=== PATIENT | female | born 1990 | race Caucasian/White ===

== ENCOUNTER 2017-03-23 19:52 | Emergency (ER) | payer OTHER ==
[~2017-03-23 19:52] MED LIST: CONCCAP2 PO
[2017-03-23 20:42] LABS: BACTERIA, URINE OCC /hpf; BLOOD, URINE NEG (NEG); COMMENT (UR) CULT NOT INDICATED; CULTURE IF INDICATED CULT NOT INDICATED; GLUCOSE,URINE NEG (NEG); KETONE, URINE NEG (NEG); MUCUS URINE FEW /lpf (OCC); NITRITE,URINE NEG (NEG); PH, URINE 7.5 (5.0-8.5); SQUAMOUS EPITHELIAL CELL URINE 8 /hpf (0-5); URINE COLOR YELLOW (YELLW/STRAW)
[2017-03-23] MEDS ORDERED: LACTATED RINGER'S 1000 ML INJ 1,000 ML IV SCH (21:15)
--- NOTE | 2017-03-23 21:15 | PD ---
HPI Chief Complaint Pt is a 26 yo Pt receives care at [facility], but last visit was 01/2017 Pt is 32 weeks and 5 days based on 18 week ultrasound. pt states she has had vaginal pressure for several weeks. Pt presents to ED with c/o 'contractions' Pt denies vaginal discharge or bleeding. No urinary symptoms Date Seen: March 23, 2017 Time Seen: 21:00 Travel History International Travel<30 Days: No Contact w/Intl Traveler<30Days: No Known Affected Area: No History of Present Illness HPI Pt reports low abdominal pain today. She has had vaginal pressure for several weeks. No urinary symptoms, no vaginal bleeding or discharge Active movements Para: 2 : 3 History Past Medical History Narrative Medical Colitis Obstetric History Obstetric History x 2 deliveries at 36 weeks Past Surgical History Surgical History: No Previous Surgery Family History Family History: Negative Social History Alcohol Use: No Tobacco Use: Yes Allergies-Medications (Allergen,Severity, Reaction): Coded Allergies: Amoxicillin (Verified Allergy, Severe, SWELLING, HIVES, 12/16/16) Penicillin (Verified Allergy, Intermediate, 12/16/16) Hard Cheese (Verified Allergy, Mild, RASH, 12/16/16) Sweet Potato (Verified Allergy, Mild, 12/16/16) Home Meds Active Scripts Vit W/ Fe Fum-Iron Po (Concept Dha 53.5-38-1 mg)1 Cap Cap1 Tab PO DAILY #30 BOTTLE Ref 11 Prov:Suzette Lara 12/16/16 Review of Systems Except as stated in HPI: all other systems reviewed are Neg Physical Exam Narrative GENERAL: Well-nourished, well-developed patient. SKIN: Warm and dry. HEAD: Normocephalic and atraumatic. EYES: No scleral icterus. No injection or drainage. ENT: No nasal drainage noted. Mucous membranes pink. Airway patent. NECK: Supple, trachea midline. No JVD. CARDIOVASCULAR: Regular rate and rhythm without murmurs, gallops, or rubs. RESPIRATORY: Breath sounds equal bilaterally. No accessory muscle use. BREASTS: Bilateral exam showed no masses , no retractions, no nipple discharge. ABDOMEN/GI: Abdomen soft, non-tender, bowel sounds present, no rebound, no guarding Gravid to [32] weeks size Fundal Height: [-] GENITOURINARY: External Genitalia: intact and normal in appearance BUS glands: [-] Cervix: [-] Dilatation: [-] Effacement: [-] Station: [-] Presentation: [-] Membranes: [intact or ruptured] Uterine Contractions: [-] FHT's: Category: [-] Baseline: [-] Reactive: [-] Variability: [-] Decels: [-] EXTREMITIES: No cyanosis or edema. BACK: Nontender without obvious deformity. No CVA tenderness. NEUROLOGICAL: Awake and alert. Motor and sensory grossly within normal limits. Five out of 5 muscle strength in all muscle groups. Normal speech. Data Data Vital Signs Reviewed: Yes Orders Urinalysis - C+S If Indicated (03/23/17 20:30) Lactated Ringer's 1000 Ml Inj (Lr 1000 M (03/23/17 21:15) Labs Laboratory Tests Test 03/23/17 20:30 Urine Color YELLOW Urine Turbidity HAZY Urine pH 7.5 Urine Specific Belding 1.006 Urine Protein NEG Urine Glucose (UA) NEG Urine Ketones NEG Urine Occult Blood NEG Urine Nitrite NEG Urine Bilirubin NEG Urine Urobilinogen LESS THAN 2.0 Urine Leukocyte Esterase NEG Urine RBC 1 Urine WBC 3 Urine Squamous Epithelial 8 Cells Urine Amorphous Sediment RARE Urine Bacteria OCC Urine Mucus FEW Microscopic Urinalysis Comment CULT NOT INDICATED MDM Medical Record Reviewed: Yes Plan Pt with irritable pattern. Cervix 1 cm on admission, no cervical change on repeat exam, minmal uterine irritablity prior to discharge Advised adequate hydration, FU with OBGYN Diagnosis Diagnosis: Primary Impression: contractions Additional Impression: False labor Disposition: 01 DISCHARGE HOME Condition: Good Patient Instructions: General Instructions Additional Instructions: make appointment with OBGYN 1 within 1 week Departure Forms: Tests/Procedures Waqar Anders MD March 23, 2017 21:15
[2017-03-23 22:08] LABS: AUTOMATED NEUTROPHIL # 5.7 TH/MM3 (1.8-7.7); BASOPHIL # 0.1 TH/MM3 (0-0.2); BASOPHIL % 0.5 % (0.0-2.0); EOSINOPHIL # 0.1 TH/MM3 (0-0.4); EOSINOPHIL % 1.3 % (0.0-4.0); HEMATOCRIT 25.3 % (35.0-46.0); HEMO FLAGS DIFF FINAL; LYMPH % 31.3 % (9.0-44.0); LYMPHOCYTE # 3.2 TH/MM3 (1.0-4.8); MEAN CELL VOLUME 87.2 FL (80.0-100.0); MEAN CORPUSCULAR HEMOGLOBIN 30.6 PG (27.0-34.0); MEAN CORPUSCULAR HGB CONC 35.1 % (32.0-36.0); MONO % 11.9 % (0.0-8.0); PLATELET COUNT 440 TH/MM3 (150-450); RED CELL DISTRIBUTION WIDTH 13.9 % (11.6-17.2); WHITE BLOOD COUNT 10.3 TH/MM3 (4.0-11.0)
[2017-03-23 22:48] LABS: RUBELLA IGG ANTIBODY 19.7 IU/mL (10.0-500.0); RUBELLA STATUS IMMUNE (IMMUNE)
[2017-03-24 12:43] LABS: RAPID PLASMA REAGIN SCREEN NON-REACTIVE (NON-REACTVE)
[2017-04-06] MEDS ORDERED: RANI1TAB5 PO (11:04)
[2017-04-08] MEDS ORDERED: SE-NTAB3 PO (13:34)
[2017-04-08] MEDS ORDERED: FERR325T20 (13:39)
== END 2017-03-23 22:07 | disposition home or self-care (01) ==
LOC: HOBED 19:52
DX: O60.03 Preterm labor without delivery, third trimester (principal); Z72.0 Tobacco use
CPT/HCPCS: 59025; 80074; 81001; 84112; 85025; 86592; 86762; 86850; 86900; 86901

== ENCOUNTER 2017-04-30 03:10 | Emergency (ER) | payer OTHER ==
[~2017-04-30 03:10] MED LIST changes: +FERR325T20; +RANI1TAB5 PO; +SE-NTAB3 PO
--- NOTE | 2017-04-30 04:00 | PD ---
HPI Chief Complaint Increased vaginal pressure Date Seen: Apr 30, 2017 Travel History International Travel<30 Days: No Contact w/Intl Traveler<30Days: No Known Affected Area: No History of Present Illness HPI Patient is 27-year-old white female 38 weeks presents complaining of increased vaginal pressure in the possibly losing the mucous plug. Denies ruptured membranes or bleeding. heart rate tracing is reactive and she is having occasional contraction. [facility] Para: 2 : 3 History Obstetric History Obstetric History 2 vaginal deliveries Social History Alcohol Use: No Tobacco Use: No Substance Abuse: No Allergies-Medications (Allergen,Severity, Reaction): Coded Allergies: Amoxicillin (Verified Allergy, Severe, SWELLING, HIVES, 04/28/17) Penicillin (Verified Allergy, Intermediate, 04/28/17) Hard Cheese (Verified Allergy, Mild, RASH, 04/28/17) Sweet Potato (Verified Allergy, Mild, 04/28/17) Home Meds Active Scripts Ferrous Sulfate (Ferosul)325 Mg [id number] Cap .ROUTE DAILY #60 CAP Prov:Bertha Garcia 04/08/17 Vit W/ Docusate-Fe Fu (Se-Esthela 19 29-1 mg)1 Tab Tab1 Tab PO DAILY # 60 TAB Ref 2 Prov:Bertha Garcia 04/08/17 Ranitidine (Ranitidine 75)75 Mg Tab75 Mg PO DAILY PRN (heatburn) #15 TAB Ref 1 Take 30 to 60 minutes before eating food or drinking beverages that cause heartburn. Prov:Bertha Garcia 04/06/17 Vit W/ Fe Fum-Iron Po (Concept Dha 53.5-38-1 mg)1 Cap Cap1 Tab PO DAILY #30 BOTTLE Ref 11 Prov:Suzette Lara 12/16/16 Review of Systems General / Constitutional: No: Fever, Weight Gain, Chills, Other Eyes: No: Diploplia, Blurred Vision, Visual changes, Pain, Photophobia HENT: No: Headaches, Vertigo, Lightheadedness Cardiovascular: No: Irregular Rhythm, Chest Pain or Discomfort, Palpitations, Tachycardia, Syncope, Varicosities, Edema, Cyanosis Respiratory: No: Cough, Short of Breath, Other Gastrointestinal: No: Nausea, Vomiting, Diarrhea Genitourinary: No: Decreased Urinary Output, Oliguria Musculoskeletal: No: Limited ROM, Weakness, Cramping, Edema, Pain Skin: No Rash, No Itching, No Dryness, No Lumps, No Change in Pigmentation, No Change in Nails, No Alopecia, No Lesions Neurologic: No: Weakness, Dizziness, Syncope, Focal Abnormalities, Coordination Problem, Headache, Slurred Speech, Seizures Psychiatric: No: Depression, Suicidal Ideations, Homicidal Ideation Endocrine: No: Heat Intolerance, Cold Intolerance, Polydipsia, Polyuria, Other Physical Exam Narrative GENERAL: Well-nourished, well-developed patient. SKIN: Warm and dry. HEAD: Normocephalic and atraumatic. EYES: No scleral icterus. No injection or drainage. ENT: No nasal drainage noted. Mucous membranes pink. Airway patent. NECK: Supple, trachea midline. No JVD. CARDIOVASCULAR: Regular rate and rhythm without murmurs, gallops, or rubs. RESPIRATORY: Breath sounds equal bilaterally. No accessory muscle use. BREASTS: Bilateral exam showed no masses , no retractions, no nipple discharge. ABDOMEN/GI: Abdomen soft, non-tender, bowel sounds present, no rebound, no guarding Gravid to [38-] weeks size Fundal Height: [38-] GENITOURINARY: External Genitalia: intact and normal in appearance BUS glands: [-] Cervix: [-] Dilatation: [2-] Effacement: [30-] Station: [-3] Presentation: [vtx-] Membranes: [intact ] Uterine Contractions: [irreg-] FHT's: Category: [1-] Baseline: [133-] Reactive: [-yes] Variability: [mod-] Decels: [0-] EXTREMITIES: No cyanosis or edema. BACK: Nontender without obvious deformity. No CVA tenderness. NEUROLOGICAL: Awake and alert. Motor and sensory grossly within normal limits. Five out of 5 muscle strength in all muscle groups. Normal speech. MDM Interpretation(s) This patient is a 27-year-old white female 38 weeks who presents complaining of increased vaginal pressure possibly loosen the mucous plug. Denies ruptured membranes or bleeding. heart rate tracing is reactive and she is keaton irregularly. Cervix is too thick and very posterior head supply quite a bit of pressure in the pelvis and you have to reach behind to get the cervical os but she is not dilated much Plan DC home to increase bedrest, increase oral fluids, Tylenol, heating pad or hot bath for comfort, and see her OB provider as scheduled or return here sooner for increase in pain bleeding or leakage Diagnosis Diagnosis: Primary Impression: False labor after 37 weeks of gestation without delivery Disposition: 01 DISCHARGE HOME Condition: Stable Saud Art II, MD Apr 30, 2017 03:59
== END 2017-04-30 04:06 | disposition home or self-care (01) ==
LOC: HOBED 03:10
DX: O47.1 False labor at or after 37 completed weeks of gestation (principal); Z3A.38 38 weeks gestation of pregnancy; Z79.899 Other long term (current) drug therapy; Z88.0 Allergy status to penicillin
CPT/HCPCS: 84112; 99282

== ENCOUNTER 2017-05-04 14:53 | Emergency (ER) | payer OTHER ==
[~2017-05-04] VITALS: Ht 154.9 cm; Wt 67.6 kg
--- NOTE | 2017-05-04 15:30 | PD ---
HPI Chief Complaint contractions daily Date Seen: May 04, 2017 Time Seen: 15:26 Travel History International Travel<30 Days: No Contact w/Intl Traveler<30Days: No Known Affected Area: No History of Present Illness HPI 27-year-old who is at 38 weeks and 5 days complains of daily contractions for the past week. Today they started earlier this morning and is becoming intermittent causing some vaginal pressure. Patient seen in the office with the last exam showing that she had a 2 cm cervical dilation. History Past Medical History Medical History: Denies Significant Hx Obstetric History Obstetric History Spontaneous vaginal delivery 2 Past Surgical History Surgical History: No Previous Surgery Family History Family History: Negative Social History Alcohol Use: No Tobacco Use: No Substance Abuse: Yes (marijuana) Allergies-Medications (Allergen,Severity, Reaction): Coded Allergies: Amoxicillin (Verified Allergy, Severe, SWELLING, HIVES, 04/28/17) Penicillin (Verified Allergy, Intermediate, 04/28/17) Hard Cheese (Verified Allergy, Mild, RASH, 04/28/17) Sweet Potato (Verified Allergy, Mild, 04/28/17) Home Meds Active Scripts Ferrous Sulfate (Ferosul)325 Mg [id number] Cap .ROUTE DAILY #60 CAP Prov:Bretha Garcia 04/08/17 Vit W/ Docusate-Fe Fu (Se- 19 29-1 mg)1 Tab Tab1 Tab PO DAILY # 60 TAB Ref 2 Prov:Bertha Garcia 04/08/17 Ranitidine (Ranitidine 75)75 Mg Tab75 Mg PO DAILY PRN (heatburn) #15 TAB Ref 1 Take 30 to 60 minutes before eating food or drinking beverages that cause heartburn. Prov:Bertha Garcia 04/06/17 Vit W/ Fe Fum-Iron Po (Concept Dha 53.5-38-1 mg)1 Cap Cap1 Tab PO DAILY #30 BOTTLE Ref 11 Prov:Suzette Lara 12/16/16 Review of Systems Except as stated in HPI: all other systems reviewed are Neg Physical Exam Narrative GENERAL: Well-nourished, well-developed patient. SKIN: Warm and dry. HEAD: Normocephalic and atraumatic. EYES: No scleral icterus. No injection or drainage. ENT: No nasal drainage noted. Mucous membranes pink. Airway patent. NECK: Supple, trachea midline. No JVD. CARDIOVASCULAR: Regular rate and rhythm without murmurs, gallops, or rubs. RESPIRATORY: Breath sounds equal bilaterally. No accessory muscle use. BREASTS: Bilateral exam showed no masses , no retractions, no nipple discharge. ABDOMEN/GI: Abdomen soft, non-tender, bowel sounds present, no rebound, no guarding Gravid to [-38] weeks size Fundal Height: [-] GENITOURINARY: External Genitalia: intact and normal in appearance BUS glands: [-Normal] Cervix: [Posterior-] Dilatation: [-2] Effacement: [50-] Station: [-4-] Presentation: [-Vertex] Membranes: [intact] Uterine Contractions: [-Occasional irregular] FHT's: Category: [-1] Baseline: [145-] Reactive: [-Moderate] Variability: [-Moderate] Decels: [-Absent] EXTREMITIES: No cyanosis or edema. BACK: Nontender without obvious deformity. No CVA tenderness. NEUROLOGICAL: Awake and alert. Motor and sensory grossly within normal limits. Five out of 5 muscle strength in all muscle groups. Normal speech. Data Data Vital Signs Reviewed: Yes [facility] Medical Record Reviewed: Yes Plan 27-year-old who is at 38 weeks 5 days Occasional contractions with false labor and no cervical change since last examination Follow tomorrow for her regular appointment Diagnosis Diagnosis: Primary Impression: 38 weeks gestation of Additional Impression: False labor after 37 completed weeks of gestation Disposition: 01 DISCHARGE HOME Nyla Curran MD May 04, 2017 15:30
== END 2017-05-04 15:52 | disposition home or self-care (01) ==
LOC: HOBED 14:53
DX: O47.1 False labor at or after 37 completed weeks of gestation (principal); O99.323 Drug use complicating pregnancy, third trimester; Z3A.38 38 weeks gestation of pregnancy
CPT/HCPCS: 99281

== ENCOUNTER 2017-05-07 01:21 | Inpatient (IN) | payer OTHER ==
[2017-05-07] VITALS (68 sets, daily range): BP systolic 97–129; BP diastolic 44–83; PULSE 66–92; RESP 16–18; TEMP 97.9–98.2; O2SAT 99–100
[2017-05-07] MEDS ORDERED: LACTATED RINGER'S 1000 ML INJ 1,000 ML IV PRN (03:21)
--- NOTE | 2017-05-07 03:26 | HHI.HP ---
HPI Chief Complaint Contractions Date Seen: May 07, 2017 Travel History International Travel<30 Days: No Contact w/Intl Traveler<30Days: No Known Affected Area: No History of Present Illness HPI Patient is a 27-year-old white female at 39 weeks presents with regular contractions. [facility] Denies bleeding or ruptured membranes. heart rate tracing is reactive and she is keaton every 2-3 minutes. Para: 2 : 3 History Obstetric History Obstetric History 2 vaginal deliveries at term Social History Alcohol Use: No Tobacco Use: No Substance Abuse: No Allergies-Medications (Allergen,Severity, Reaction): Coded Allergies: Amoxicillin (Verified Allergy, Severe, SWELLING, HIVES, 05/05/17) Penicillin (Verified Allergy, Intermediate, 05/05/17) Sweet Potato (Verified Allergy, Mild, 05/05/17) Home Meds Active Scripts Ferrous Sulfate (Ferosul)325 Mg [id number] Cap .ROUTE DAILY #60 CAP Prov:Bertha Garcia 04/08/17 Vit W/ Docusate-Fe Fu (Se- 19 29-1 mg)1 Tab Tab1 Tab PO DAILY # 60 TAB Ref 2 Prov:Bertha Garcia 04/08/17 Ranitidine (Ranitidine 75)75 Mg Tab75 Mg PO DAILY PRN (heatburn) #15 TAB Ref 1 Take 30 to 60 minutes before eating food or drinking beverages that cause heartburn. Prov:Bertha Garcia 04/06/17 Vit W/ Fe Fum-Iron Po (Concept Dha 53.5-38-1 mg)1 Cap Cap1 Tab PO DAILY #30 BOTTLE Ref 11 Prov:Suzette Lara 12/16/16 Review of Systems General / Constitutional: No: Fever, Weight Gain, Chills, Other Eyes: No: Diploplia, Blurred Vision, Visual changes, Pain, Photophobia HENT: No: Headaches, Vertigo, Lightheadedness Cardiovascular: No: Irregular Rhythm, Chest Pain or Discomfort, Palpitations, Tachycardia, Syncope, Varicosities, Edema, Cyanosis Respiratory: No: Cough, Short of Breath, Other Gastrointestinal: Abdominal Pain, No: Nausea, Vomiting, Diarrhea Genitourinary: No: Decreased Urinary Output, Oliguria Musculoskeletal: No: Limited ROM, Weakness, Cramping, Edema, Pain Skin: No Rash, No Itching, No Dryness, No Lumps, No Change in Pigmentation, No Change in Nails, No Alopecia, No Lesions Neurologic: No: Weakness, Dizziness, Syncope, Focal Abnormalities, Coordination Problem, Headache, Slurred Speech, Seizures Psychiatric: No: Depression, Suicidal Ideations, Homicidal Ideation Endocrine: No: Heat Intolerance, Cold Intolerance, Polydipsia, Polyuria, Other Physical Exam Narrative GENERAL: Well-nourished, well-developed patient. SKIN: Warm and dry. HEAD: Normocephalic and atraumatic. EYES: No scleral icterus. No injection or drainage. ENT: No nasal drainage noted. Mucous membranes pink. Airway patent. NECK: Supple, trachea midline. No JVD. CARDIOVASCULAR: Regular rate and rhythm without murmurs, gallops, or rubs. RESPIRATORY: Breath sounds equal bilaterally. No accessory muscle use. BREASTS: Bilateral exam showed no masses , no retractions, no nipple discharge. ABDOMEN/GI: Abdomen soft, non-tender, bowel sounds present, no rebound, no guarding Gravid to [39-] weeks size Fundal Height: [-39] GENITOURINARY: External Genitalia: intact and normal in appearance BUS glands: [-] Cervix: [-] Dilatation: [-5] Effacement: [70-] Station: [-2] Presentation: [-vtx] Membranes: [intact ] Uterine Contractions: [q 2-3 min-] FHT's: Category: [1-] Baseline: [133-] Reactive: [-yes] Variability: [mod-] Decels: [none-] EXTREMITIES: No cyanosis or edema. BACK: Nontender without obvious deformity. No CVA tenderness. NEUROLOGICAL: Awake and alert. Motor and sensory grossly within normal limits. Five out of 5 muscle strength in all muscle groups. Normal speech. Data Data Orders Admit To Inpatient (05/07/17 ) Vital Signs (Adult) .Per protocol (05/07/17 03:21) Heart (05/07/17 03:21) Amnioinfusion (05/07/17 03:21) Urinary Catheter Management .ONCE (05/07/17 03:21) Assessment/Plan Assessment and Plan Patient is 27-year-old white female 39 weeks presents in early labor. Cervix is 5 cm 70% -2, membranes intact is no vaginal bleeding, heart rate tracing is reactive and she is keaton on the monitor to 3 minutes. Patient describes these contractions is quite painful. [facility], she is GBS negative Saud Art II, MD May 07, 2017 03:26
[2017-05-07] MEDS ORDERED: OXYTOCIN 30 UNITS-500ML PREMIX 500 ML IV ONE (03:30)
[2017-05-07] MEDS ORDERED: MINERAL OIL 10 ML VIAL TOPICAL PRN (03:30)
[2017-05-07] MEDS ORDERED: CITRIC ACID-SODIUM CITRATE LIQ 30 ML UDC PO SCH (03:30)
[2017-05-07] MEDS ORDERED: ONDANSETRON HCL 4 MG/2 ML VIAL IV PRN (03:30)
[2017-05-07] MEDS ORDERED: LIDOCAINE HCL 1% 50 ML VIAL INFIL PRN (03:30)
[2017-05-07] MEDS ORDERED: LIDOCAINE HCL 1% 50 ML VIAL I-DERMAL PRN (03:30)
[2017-05-07] MEDS ORDERED: SODIUM CHLORID 0.9% 500 ML INJ 500 ML IV PRN (03:30)
[2017-05-07] MEDS ORDERED: SODIUM CHLOR 0.9% 1000 ML INJ 1,000 ML IV PRN (03:41)
[2017-05-07 04:24] LABS: BACTERIA, URINE RARE /hpf; BLOOD, URINE NEG (NEG); GLUCOSE,URINE NEG (NEG); KETONE, URINE NEG (NEG); MUCUS URINE FEW /lpf (OCC); NITRITE,URINE NEG (NEG); SQUAMOUS EPITHELIAL CELL URINE 1 /hpf (0-5); URINE COLOR YELLOW (YELLW/STRAW)
[2017-05-07 04:25] LABS: COMMENT (UR) CULT NOT INDICATED; CULTURE IF INDICATED CULT NOT INDICATED
[2017-05-07] MEDS ORDERED: fentaNYL 2MCG-BUPIV 0.125% 100 ML EPIDURAL SCH (04:30)
[2017-05-07] MEDS ORDERED: NO SYSTEM NARCOTICS PRN (04:30)
[2017-05-07] MEDS ORDERED: DO NOT ADMINISTER ANTICOAGULANTS PRN (04:30)
[2017-05-07 04:31] LABS: AMPHETAMINE, URINE NEG (NEG); BARBITURATES, URINE NEG (NEG); COCAINE, URINE NEG (NEG)
[2017-05-07 04:33] LABS: AUTOMATED NEUTROPHIL # 6.5 TH/MM3 (1.8-7.7); BASOPHIL # 0.1 TH/MM3 (0-0.2); BASOPHIL % 0.7 % (0.0-2.0); EOSINOPHIL # 0.2 TH/MM3 (0-0.4); EOSINOPHIL % 1.7 % (0.0-4.0); HEMATOCRIT 27.7 % (35.0-46.0); HEMO FLAGS DIFF FINAL; LYMPH % 28.5 % (9.0-44.0); LYMPHOCYTE # 3.2 TH/MM3 (1.0-4.8); MEAN CELL VOLUME 85.8 FL (80.0-100.0); MEAN CORPUSCULAR HEMOGLOBIN 29.2 PG (27.0-34.0); MONO % 10.2 % (0.0-8.0); NEUT % 58.9 % (16.0-70.0); PLATELET COUNT 537 TH/MM3 (150-450); RED BLOOD COUNT 3.23 MIL/MM3 (4.00-5.30); RED CELL DISTRIBUTION WIDTH 15.7 % (11.6-17.2); WHITE BLOOD COUNT 11.1 TH/MM3 (4.0-11.0)
[2017-05-07] MEDS ORDERED: fentaNYL 2MCG-BUPIV 0.125% INJ 100 ML ONE (04:33)
[2017-05-07] MEDS ORDERED: ePHEDrine/NS 25 MG/5 ML SYR ONE (04:43)
[2017-05-07] MEDS: LACTATED RINGER'S 1000 ML INJ 1,000 ML IV SCH ×2 (04:52→08:49)
[2017-05-07] MEDS ORDERED: ePHEDrine/NS 25 MG/5 ML SYR IV PRN (05:45)
--- NOTE | 2017-05-07 09:27 | PD.LABORPN ---
Subjective Subjective 27 YO at 39/1 in labor resting in bed with no concerns Objective Vital Signs Vital Signs Date Time Temp Pulse Resp B/P Pulse Ox O2 Delivery O2 Flow Rate FiO2 05/07/17 08:50 18 05/07/17 08:40 75 05/07/17 08:35 77 05/07/17 08:31 73 117/73 05/07/17 08:30 74 05/07/17 08:10 78 05/07/17 08:05 92 05/07/17 08:00 78 126/68 05/07/17 08:00 76 05/07/17 07:37 98.2 18 05/07/17 07:35 76 05/07/17 07:30 78 05/07/17 07:30 76 05/07/17 07:30 77 115/75 05/07/17 07:25 77 05/07/17 07:25 76 05/07/17 07:20 75 05/07/17 07:20 77 05/07/17 07:15 74 126/72 05/07/17 07:15 74 05/07/17 07:15 74 05/07/17 07:00 72 05/07/17 07:00 69 05/07/17 07:00 72 124/72 05/07/17 06:50 72 05/07/17 06:50 71 05/07/17 06:46 128/82 05/07/17 06:46 82 05/07/17 06:45 78 05/07/17 06:45 82 05/07/17 06:41 81 119/76 05/07/17 06:40 80 05/07/17 06:40 83 05/07/17 06:35 78 05/07/17 06:35 79 100 05/07/17 06:31 72 97/44 05/07/17 06:30 72 100 05/07/17 06:30 18 05/07/17 06:30 71 05/07/17 06:25 72 05/07/17 06:25 71 99 05/07/17 06:20 77 100 05/07/17 06:20 73 05/07/17 06:16 70 103/56 05/07/17 06:15 70 100 05/07/17 06:15 72 05/07/17 06:10 78 05/07/17 06:10 76 05/07/17 06:05 78 05/07/17 06:05 79 05/07/17 06:00 80 122/75 05/07/17 06:00 78 05/07/17 06:00 80 05/07/17 05:55 79 05/07/17 05:55 76 16 05/07/17 05:50 76 05/07/17 05:50 75 05/07/17 05:45 16 05/07/17 05:45 72 05/07/17 05:45 83 116/65 05/07/17 05:45 76 05/07/17 05:40 76 05/07/17 05:40 75 118/73 05/07/17 05:40 76 05/07/17 05:36 83 116/67 05/07/17 05:35 78 05/07/17 05:35 78 05/07/17 05:31 74 103/65 05/07/17 05:30 78 05/07/17 05:30 78 05/07/17 05:26 78 125/59 05/07/17 05:25 79 05/07/17 05:25 79 05/07/17 05:24 18 05/07/17 05:20 78 05/07/17 05:20 79 122/66 05/07/17 05:20 75 05/07/17 05:15 76 05/07/17 05:15 18 05/07/17 05:15 75 117/64 05/07/17 05:15 77 05/07/17 05:12 76 120/59 05/07/17 05:10 81 05/07/17 05:10 82 05/07/17 05:05 76 05/07/17 05:05 72 05/07/17 05:04 73 121/74 05/07/17 05:00 97.9 05/07/17 05:00 18 05/07/17 05:00 77 05/07/17 05:00 78 05/07/17 04:55 66 05/07/17 04:55 67 05/07/17 04:50 71 05/07/17 04:49 70 123/71 05/07/17 04:33 18 05/07/17 03:38 16 05/07/17 03:37 71 112/58 Objective Pelvic Exam: Cervix: anterior Dilatation: 6-7 Effacement: 100 Station: 0 Presentation: vertex Membranes: AROM -- 0920 Uterine Contractions: 2-3 minutes and regular FHT's: Category: 1 Baseline: 120 Reactive: yes Variability: moderate Decels: no Assessment/Plan Assessment and Plan 27-year-old white female 39/1. Cervix is 6-7 cm 100%, 0 station; AROM performed at 0920 1. IUP - GBS negative - Category 1 tracing - Routine labor care - Epidural in place and pain well controlled Timothy Sandra MD R1 May 07, 2017 09:27
[2017-05-07] MEDS ORDERED: ONDANSETRON ODT 4 MG TAB PO PRN (10:30)
[2017-05-07] MEDS ORDERED: BENZOCAINE 20% TOPICAL SPRAY 60 ML CAN TOPICAL PRN (10:30)
[2017-05-07] MEDS ORDERED: SODIUM CHLORIDE 0.9% FLUSH 10 ML FLUSH IV FLUSH PRN (10:30)
[2017-05-07] MEDS ORDERED: ALUMINUM/MAGNESIUM/SIMETH 30 ML CUP PO PRN (10:30)
[2017-05-07] MEDS ORDERED: DOCUSATE SODIUM 50 MG/SENNA 8.6 MG TAB PO PRN (10:30)
[2017-05-07] MEDS ORDERED: ZOLPIDEM TARTRATE 5 MG TAB PO PRN (10:30)
[2017-05-07] MEDS ORDERED: WITCH HAZEL 50%/GLYCERIN 12.5% 40 PAD JAR TOPICAL PRN (10:30)
--- NOTE | 2017-05-07 10:39 | PD.OB.DELI ---
Delivery Date: May 07, 2017 Anesthesia: Epidural Episiotomy: None Vaginal Delivery: Normal Presentation: Occiput anterior, Vertex Nuchal Cord: None Delayed cord clamping (45 sec): Yes Infant: Male One Minute : 8 Five Minute : 8 Weight: 3235g Placenta: Spontaneous delivery Laceration: No lacerations Additional Information Delivered by Dr Norris, assited by Dr Sandra and supervised by Timothy Longo MD R1 May 07, 2017 10:39
[2017-05-07] MEDS: IBUPROFEN 600 MG TAB PO PRN ×2 (13:21→21:21)
[2017-05-07] MEDS ORDERED: DIPHTH/TETANUS/ACEL PERTUSSIS (BOOSTER) 0.5 ML VIAL/PFS IM ONE (16:00)
[2017-05-07] MEDS ORDERED: MEASLES, MUMPS, RUBELLA VACCINE 0.5 ML VIAL SQ ONE (16:00)
[2017-05-07] MEDS: ACETAMINOPHEN 325 MG TAB PO PRN (21:22)
[2017-05-08 08:00] VITALS: BP 106/69; PULSE 70; RESP 17; TEMP 98.1
[2017-05-08] MEDS: ACETAMINOPHEN 325 MG TAB PO PRN ×2 (08:46→17:44)
[2017-05-08] MEDS: IBUPROFEN 600 MG TAB PO PRN ×2 (08:46→17:45)
[2017-05-08] MEDS: SODIUM CHLORIDE 0.9% FLUSH 10 ML FLUSH IV FLUSH SCH (09:00)
--- NOTE | 2017-05-08 10:14 | HHI.OB ---
Subjective Post Day: 1 Remarks Pt seen and examined this morning. day # 1 AFVSS overnight. Decreased lochia. Denies dysuria. No breast tenderness. She is feeding the baby via bottle. Appetite good. No nausea or vomiting. Patient endorses no bowel gas or movement, but does have positive bowel sounds Ambulating well. Denies calf pain or shortness of breath. Otherwise, she is doing well this morning and has no other concerns. Objective Vitals/I&O Vital Signs Date Time Temp Pulse Resp B/P Pulse Ox O2 Delivery O2 Flow Rate FiO2 05/08/17 08:00 98.1 70 17 05/08/17 08:00 106/69 05/07/17 19:10 97.9 18 05/07/17 19:10 74 113/71 05/07/17 13:45 98.2 66 16 110/66 05/07/17 13:00 69 111/56 05/07/17 12:30 73 118/68 05/07/17 12:00 16 05/07/17 12:00 75 115/74 05/07/17 11:30 71 124/65 05/07/17 11:01 69 118/67 05/07/17 10:30 70 117/66 Objective Remarks GENERAL: Well-nourished, well-developed patient. CARDIOVASCULAR: Regular rate and rhythm without murmurs, gallops, or rubs. RESPIRATORY: Breath sounds equal bilaterally. No accessory muscle use. ABDOMEN/GI: Abdomen soft, non-tender. Fundus: Firm, non-tender at umbilicus. GENITOURINARY: Light to moderate bleeding. EXTREMITIES: No cyanosis or edema, non-tender, without signs of DVT. Medications and IVs Current Medications Medications (Trade) Dose Ordered Sig/Jon Route Start Time Stop Time Status Last Admin (fentaNYL 2MCG-BUPIV 0.125% INJ) 100 ml @ 0 mls/hr TITRATE EPIDURAL 05/07/17 04:30 05/07/17 08:50 (NS Flush) 2 ml BID IV FLUSH 05/07/17 21:00 (NS Flush) 2 ml UNSCH PRN IV FLUSH 05/07/17 10:30 (Tylenol) 650 mg Q4H PRN PO 05/07/17 10:30 05/08/17 08:46 (Motrin) 600 mg Q6H PRN PO 05/07/17 10:30 05/08/17 08:46 (Americaine 20% Top Spr) 1 spray Q4H PRN TOPICAL 05/07/17 10:30 (Tucks Pads) 1 applic QID PRN TOPICAL 05/07/17 10:30 (Jud-Colace) 2 tab Q12H PRN PO 05/07/17 10:30 05/07/17 21:21 (Ambien) 5 mg HS PRN PO 05/07/17 10:30 (Mag-Al Plus Susp Liq) 15 ml Q8H PRN PO 05/07/17 10:30 (Zofran Odt) 4 mg Q6H PRN PO 05/07/17 10:30 Assessment/Plan Assessment and Plan 27y/o female who is PPD # 1 s/p . -Continue routine care. -Motrin PRN pain. -Encouraged OOB. Advised pelvic rest for 6 wks. -Re: ctrl, she would like to discuss her options at her follow-up OB appointment. -Anticipate discharge tomorrow, 05/09. jeffy Greco MD Discharge Planning -Anticipate discharge tomorrow, 05/09. Raheem Hewitt MD R1 May 08, 2017 10:14
[2017-05-08] MEDS ORDERED: IBUP-232 PO (10:15)
[2017-05-08] MEDS ORDERED: SENN1TAB PO (10:15)
--- NOTE | 2017-05-08 10:16 | HHI.DCPOC ---
Discharge Care Plan Diagnosis: (1) Vaginal delivery Report Symptoms to Your Doctor -Temperature above 100.5 degrees -Redness, of incision or excessive or foul smelling drainage -Unusual pain or calf pain -Increased vaginal bleeding -Painful or difficulty urinating -Feelings of extreme sadness or anxiety after 2 weeks Goals to Promote Your Health * To prevent worsening of your condition and complications * To maintain your health at the optimal level Directions to Meet Your Goals Take your medications as prescribed Follow your dietary instruction Follow activity as directed Ensure plenty of rest for recovery Drink fluids for hydration Keep your appointments as scheduled Take your immunizations and boosters as scheduled If your symptoms worsen call your PCP, if no PCP go to Urgent Care Center or Emergency Room Smoking is Dangerous to Your Health. Avoid second hand smoke Call the 24-hour crisis hotline for domestic abuse at Raheem Hewitt MD R1 May 08, 2017 10:16
[2017-05-09] MEDS: ACETAMINOPHEN 325 MG TAB PO PRN ×2 (02:55→08:45)
[2017-05-09] MEDS: IBUPROFEN 600 MG TAB PO PRN ×2 (02:55→08:45)
[2017-05-09 08:20] VITALS: BP 119/79; PULSE 61; RESP 16; TEMP 97.9
[2017-05-09] MEDS: SODIUM CHLORIDE 0.9% FLUSH 10 ML FLUSH IV FLUSH SCH (09:00)
--- NOTE | 2017-05-09 10:31 | HHI.OB ---
Subjective Post Day: 2 Remarks Pt seen and examined this morning. day # 1 AFVSS overnight. Decreased lochia. Denies dysuria. No breast tenderness. She is feeding the baby via bottle. Appetite good. No nausea or vomiting. Patient endorses bowel movement and continues to pass gas. Ambulating well. Denies calf pain or shortness of breath. She does mention that she is upset as she is giving her baby up for adoption, but otherwise is doing well this morning and has no other concerns. Objective Vitals/I&O Vital Signs Date Time Temp Pulse Resp B/P Pulse Ox O2 Delivery O2 Flow Rate FiO2 05/09/17 08:20 97.9 61 16 05/09/17 08:20 119/79 Objective Remarks GENERAL: Well-nourished, well-developed patient. CARDIOVASCULAR: Regular rate and rhythm without murmurs, gallops, or rubs. RESPIRATORY: Breath sounds equal bilaterally. No accessory muscle use. ABDOMEN/GI: Abdomen soft, non-tender. Fundus: Firm, non-tender at umbilicus. GENITOURINARY: Light to moderate bleeding. EXTREMITIES: No cyanosis or edema, non-tender, without signs of DVT. Medications and IVs Current Medications Medications (Trade) Dose Ordered Sig/Jon Route Start Time Stop Time Status Last Admin (fentaNYL 2MCG-BUPIV 0.125% INJ) 100 ml @ 0 mls/hr TITRATE EPIDURAL 05/07/17 04:30 05/07/17 08:50 (NS Flush) 2 ml BID IV FLUSH 05/07/17 21:00 (NS Flush) 2 ml UNSCH PRN IV FLUSH 05/07/17 10:30 (Tylenol) 650 mg Q4H PRN PO 05/07/17 10:30 05/09/17 08:45 (Motrin) 600 mg Q6H PRN PO 05/07/17 10:30 05/09/17 08:45 (Americaine 20% Top Spr) 1 spray Q4H PRN TOPICAL 05/07/17 10:30 (Tucks Pads) 1 applic QID PRN TOPICAL 05/07/17 10:30 (Jud-Colace) 2 tab Q12H PRN PO 05/07/17 10:30 05/07/17 21:21 (Ambien) 5 mg HS PRN PO 05/07/17 10:30 (Mag-Al Plus Susp Liq) 15 ml Q8H PRN PO 05/07/17 10:30 (Zofran Odt) 4 mg Q6H PRN PO 05/07/17 10:30 Assessment/Plan Assessment and Plan 27y/o female who is PPD # 2 s/p . -Continue routine care. -Motrin PRN pain. -Encouraged OOB. Advised pelvic rest for 6 wks. -Re: ctrl, she would like to discuss her options at her follow-up OB appointment in 6 weeks -Discharge home today, 05/09. jeffy Anders MD Discharge Planning Anticipatory discharge today, 05/09. Raheem Hewitt MD R1 May 09, 2017 10:31
[2017-05-12 17:11] LABS: BATH SALTS (MDPV) UR NEG (NEG); ECSTASY (MDMA) UR NEG (NEG); GABAPENTIN UR NEG (NEG); HEROIN (6-ACETYLMORPHINE) UR NEG (NEG); HYDROMORPHONE U NEG (NEG); K2 SPICE UR NEG (NEG); OBMETHADONE UR NEG (NEG); OXYCODONE (PERCODAN) NEG (NEG); PHENCYCLIDINE URINE NEG (NEG)
== END 2017-05-09 13:32 | disposition home or self-care (01) | DRG 775 ==
LOC: HOBED 01:21 → H2EA 03:27 → H1EA 13:32
PROVIDERS: ADMIT Obstetrics & Gynecology Maternal & Fetal Medicine; ATTEND Obstetrics & Gynecology Maternal & Fetal Medicine
PROC: 10E0XZZ Delivery of Products of Conception, External Approach (ICD-10-PCS; principal; 2017-05-07)
PROC: 10907ZC Drainage of Amniotic Fluid, Therapeutic from Products of Conception, Via Natural or Artificial Opening (ICD-10-PCS; 2017-05-07)
PROC: 00HU33Z Insertion of Infusion Device into Spinal Canal, Percutaneous Approach (ICD-10-PCS; 2017-05-07)
PROC: 3E0R3CZ (ICD-10-PCS; 2017-05-07)
DX: O80 Encounter for full-term uncomplicated delivery (principal); Z37.0 Single live birth; Z3A.39 39 weeks gestation of pregnancy
CPT/HCPCS: 80307; 81001; 85025; 86900; 86901; 99285; G0481; J3010; J7120

== ENCOUNTER 2018-07-13 19:47 | Inpatient (IN) ==
[2018-07-13] MEDS ORDERED: Acetaminophen 325 MG Tablet PO ONE (20:06)
[2018-07-13] MEDS ORDERED: Sod Chloride 0.9% Inj 1,000 ML IV.SIG ONE (20:09)
--- NOTE | 2018-07-13 20:16 | ED ---
HPI General Chief complaint: Nausea/Vomiting/Diarrhea Stated complaint: Nausea Time Seen by Provider: 07/13/18 19:59 Source: patient and RN notes reviewed Limitations: no limitations History of Present Illness HPI narrative: 28-year-old female presents to the emergency department for evaluation of fever, endocarditis. She states she was admitted to [facility] today, but left AGAINST MEDICAL ADVICE. Her mother at bedside states that she also was admitted here as well as [facility] previously and left AMA then 2. She is an IV drug user. She states she has not used in 3 months. The patient was admitted here early in May for septic emboli, endocarditis, but left AMA. She states that her kidneys have also failed. She has Vas-Cath to the right neck. She states she received dialysis yesterday. She gets a Wednesday, , Wednesday. Patient reports generalized pain. Her abdomen is distended. She is a poor historian. Severity : severe. Location: chest Radiation: non-radiation Severity: severe Severity scale (1-10): 10 Quality: aching Pain Consistency: constant Relieving factors: none Exacerbating factors: none Associated symptoms: fever/chills Treatments prior to arrival: other (workup at another hospital; unsure what was given) Related Data Home Medications Medication Instructions Recorded Confirmed No Known Home Medications 05/04/18 07/13/18 Allergies Allergy/AdvReac Type Severity Reaction Status Date / Time sweet potato Allergy Severe Hives Verified 05/29/18 19:49 amoxicillin Allergy Intermediate SWELLING, Verified 05/29/18 19:49 HIVES penicillin G Allergy Intermediate Hives Verified 05/29/18 19:49 Review of Systems ROS: all other systems reviewed are negative [facility] Medical History Medical History Cholecystitis (Acute) Asthma (Acute) Endocarditis (Acute) Hemodialysis patient (Acute) Social History Social History Substance History: Active Abuse and Past History Second Hand Smoke Exposure: No Smoking Status: Never smoker Tobacco Type: Cigarettes How Often Do You Have a Drink Containing Alcohol: Never Recent Travel in [place] within the Last 8 Weeks: No Recent Out of Country Travel within the Last 8 Weeks: No Substance Abuse Detail Heroin: Substance Use Status: Active Route Used Substance Abuse: Intravenously Reason for Use: Get High Immunization History Tetanus Immunization: <5 Years Hx Influenza Vaccine This Season: No Exam Narrative Exam Narrative: GENERAL: Well-nourished, well-developed female patient, temp of 100.1 SKIN: Focused skin assessment warm/dry. HEAD: Normocephalic. Atraumatic EYES: No scleral icterus. No injection or drainage. NECK: Supple, trachea midline. No JVD or lymphadenopathy. CARDIOVASCULAR: Regular rhythm without murmurs, gallops, or rubs. Patient is tachycardic with HR in the 130's RESPIRATORY: Breath sounds equal bilaterally. No accessory muscle use. Lungs sounds CTA. GASTROINTESTINAL: Abdomen distended. She reports diffuse tenderness throughout. MUSCULOSKELETAL: No cyanosis. 1+ lower extremity edema BACK: Nontender without obvious deformity. No CVA tenderness. Course Initial Documented Vital Signs Temperature 100.1 F H 07/13/18 19:51 Pulse Rate 133 H 07/13/18 19:51 Respiratory Rate 28 H 07/13/18 19:51 Blood Pressure 146/107 H 07/13/18 19:51 Pulse Oximetry 96 07/13/18 19:51 Last Documented Vital Signs Temperature 100.7 F H 07/13/18 21:11 Pulse Rate 122 H 07/13/18 21:11 Respiratory Rate 20 07/13/18 21:11 Blood Pressure 150/91 H 07/13/18 21:11 Pulse Oximetry 95 07/13/18 21:11 Critical Care Time Critical Care Time: Yes Total Critical Care Time: 35 Attestation: Total critical care time 35 minutes. This includes examining and stabilizing the patient, gathering a history from a source other than the patient (i.e., chart review), formulating a differential diagnosis, ordering and interpreting laboratory tests and EKG, ordering and interpreting radiology tests, discussing the patient's care with other providers (ICU), re-evaluation at frequent intervals, and documentation. Amount of time is separate from teaching, counseling the patient and/or family, and exclusive of procedures. Medical Decision Making CANELO Attestation CANELO supervised visit: Yes Attestation: I was present with the advanced practitioner during the management of this patient. I discussed the case with the advanced practitioner and agree with the findings and plan as documented in their note except as noted below. 28yF presenting with fever and generalized pain. The patient has a history of IVDA (heroin), pulmonary septic emboli, endocarditis, and acute renal failure; states that she's been admitted to [facility] for the past 2 weeks until this morning, when she signed out against medical advice. She has ARF with new initiation of hemodialysis during this admission, last dialyzed yesterday. Reports fever, chills, chest pain, cough, abdominal pain, and back pain. Patient was admitted in June 2018 for septic pulmonary emboli and endocarditis but signed out against medical advice. Ill-appearing, distressed HD cath present in right upper chest Tachy, regular Coarse breath sounds bilaterally Abdomen soft, moderately distended, diffusely tender, no guarding or rebound 1+ peripheral edema GCS 15, no focal neuro deficits Agitated A/P: 28yF presenting with endocarditis, septic pulmonary emboli, ESRD Sepsis workup- patient not appropriate to receive full 30 cc/kg fluid bolus given history of TR and ESRD, start with 1 L Peripheral blood cultures and 1 from each port of HD cath Labs, lactic acid CXR Patient requires admission to the intensive care unit as she is at very high risk for life-threatening decompensation. Case discussed with Dr. Hussein. [facility] Narrative Medical decision making narrative: 28-year-old female presents to the emergency department reporting kidney failure and endocarditis, left AMA from [facility] today. She does appear ill on exam. According to my records, she left AMA in May from here as well. Patient has a Vas-Cath to the right neck. IBS is obtained. EKG, CBC, CMP, lactic acid, CK, troponin, magnesium, PTT, PT/INR, UA, UDS, UPT, random vancomycin level are ordered and pending. The patient is unsure which antibiotics she was receiving at [facility]. Patient is started on Cefepime. She is given NS 1 L IV bolus, Morphine 4 mg IV, Zofran 4 mg IV. My attending physician, Saeid, examined patient as well. Front Office Medical Assistant is paged for admission. My attending physician, Dr. Breaux, admitted patient to Dr. Hussein. Medical Screen Exam Complete: Yes Emergency Medical Condition: Yes Lab Data Result diagrams: 07/13/18 20:22 07/13/18 20:22 POC Results POC Urine Results Negative Lab Results 07/13/18 07/13/18 07/13/18 Range/Units 20:22 20:22 20:22 WBC 11.6 H (4.0-11.0) th/mm3 RBC 3.01 L (4.00-5.30) mil/mm3 Hgb 8.5 L (11.6-15.3) gm/dL Hct 27.0 L (35.0-46.0) % MCV 90.0 (80.0-100.0) fL MCH 28.2 (27.0-34.0) pg MCHC 31.4 L (32.0-36.0) % RDW 18.3 H (11.6-17.2) % Plt Count 317 (150-450) th/mm3 MPV 8.0 (7.0-11.0) fL Prelim Diff (Auto) Slide review pending Neut % (Auto) 69.5 (16.0-70.0) % Lymph % (Auto) 17.3 (9.0-44.0) % [place] % (Auto) 11.2 H (0.0-8.0) % Eos % (Auto) 0.4 (0.0-4.0) % Baso % (Auto) 1.6 (0.0-2.0) % Neut # (Auto) 8.1 H (1.8-7.7) th/mm3 Lymph # (Auto) 2.0 (1.0-4.8) th/mm3 [place] # (Auto) 1.3 H (0.0-0.9) th/mm3 Eos # (Auto) 0.0 (0.0-0.4) th/mm3 Baso # (Auto) 0.2 (0.0-0.2) th/mm3 WBC Differential . Diff Scan Auto diff confirmed Differential Comment . Platelet Estimate Normal (Normal) Platelet Morphology Normal (Normal) PT 17.1 H (9.8-11.6) sec INR 1.7 Ratio APTT 27.9 (24.3-30.1) sec Puncture Site Patient Temperature O2 Saturation (90-100) % ABG pH (7.380-7.420) ABG pCO2 (38-42) mmHg ABG pO2 (61-120) mmHg ABG HCO3 (22-26) mmol/L ABG O2 Content (12.0-20.0) Vol % ABG Base Excess (-2-2) mmol/L ABG Methemoglobin (0-2) % Hemoglobin (12.0-16.0) G/DL Carboxyhemoglobin (0-4) % O2 Delivery Device Inspired O2 % Critical Value Sodium 131 L (136-145) meq/L Potassium 5.9 H (3.5-5.1) meq/L Chloride 101 (98-107) meq/L Carbon Dioxide 15.6 L (21.0-32.0) meq/L Anion Gap 14 (5-15) meq/L BUN 50 H (7-18) mg/dL Creatinine 5.27 H (0.50-1.00) mg/dL Estimated GFR 10 L (>89) mL/min Random Glucose 106 (74-106) mg/dL Osmolality (275-295) mosm/kg Lactic Acid (0.4-2.0) mmol/L Calcium 8.3 L (8.5-10.1) mg/dL Phosphorus (2.5-4.9) mg/dL Magnesium 1.9 (1.5-2.5) mg/dL Total Bilirubin 0.5 (0.2-1.0) mg/dL AST 13 L (15-37) U/L ALT 8 L (10-53) U/L Alkaline Phosphatase 112 (45-117) U/L Total Creatine Kinase 12 L (26-192) U/L Troponin I 0.02 (0.02-0.05) ng/mL Total Protein 7.6 (6.4-8.2) g/dL Albumin 2.0 L (3.4-5.0) g/dL Lipase 72 L (73-393) U/L Beta HCG, Quant 1 (0-5) mIU/mL Random Vancomycin 14.8 Comment 07/13/18 07/13/18 07/13/18 Range/Units 20:22 20:22 20:22 WBC (4.0-11.0) th/mm3 RBC (4.00-5.30) mil/mm3 Hgb (11.6-15.3) gm/dL Hct (35.0-46.0) % MCV (80.0-100.0) fL MCH (27.0-34.0) pg MCHC (32.0-36.0) % RDW (11.6-17.2) % Plt Count (150-450) th/mm3 MPV (7.0-11.0) fL Prelim Diff (Auto) Neut % (Auto) (16.0-70.0) % Lymph % (Auto) (9.0-44.0) % Bea[place]gard % (Auto) (0.0-8.0) % Eos % (Auto) (0.0-4.0) % Baso % (Auto) (0.0-2.0) % Neut # (Auto) (1.8-7.7) th/mm3 Lymph # (Auto) (1.0-4.8) th/mm3 [place] # (Auto) (0.0-0.9) th/mm3 Eos # (Auto) (0.0-0.4) th/mm3 Baso # (Auto) (0.0-0.2) th/mm3 WBC Differential Diff Scan Differential Comment Platelet Estimate (Normal) Platelet Morphology (Normal) PT (9.8-11.6) sec INR Ratio APTT (24.3-30.1) sec Puncture Site Patient Temperature O2 Saturation (90-100) % ABG pH (7.380-7.420) ABG pCO2 (38-42) mmHg ABG pO2 (61-120) mmHg ABG HCO3 (22-26) mmol/L ABG O2 Content (12.0-20.0) Vol % ABG Base Excess (-2-2) mmol/L ABG Methemoglobin (0-2) % Hemoglobin (12.0-16.0) G/DL Carboxyhemoglobin (0-4) % O2 Delivery Device Inspired O2 % Critical Value Sodium (136-145) meq/L Potassium (3.5-5.1) meq/L Chloride (98-107) meq/L Carbon Dioxide (21.0-32.0) meq/L Anion Gap (5-15) meq/L BUN (7-18) mg/dL Creatinine (0.50-1.00) mg/dL Estimated GFR (>89) mL/min Random Glucose (74-106) mg/dL Osmolality (275-295) mosm/kg Lactic Acid 3.1 H (0.4-2.0) mmol/L Calcium (8.5-10.1) mg/dL Phosphorus 1.7 L (2.5-4.9) mg/dL Magnesium (1.5-2.5) mg/dL Total Bilirubin (0.2-1.0) mg/dL AST (15-37) U/L ALT (10-53) U/L Alkaline Phosphatase (45-117) U/L Total Creatine Kinase (26-192) U/L Troponin I (0.02-0.05) ng/mL Total Protein (6.4-8.2) g/dL Albumin (3.4-5.0) g/dL Lipase (73-393) U/L Beta HCG, Quant 1 (0-5) mIU/mL Random Vancomycin Comment 07/13/18 07/13/18 Range/Units 20:22 22:10 WBC (4.0-11.0) th/mm3 RBC (4.00-5.30) mil/mm3 Hgb (11.6-15.3) gm/dL Hct (35.0-46.0) % MCV (80.0-100.0) fL MCH (27.0-34.0) pg MCHC (32.0-36.0) % RDW (11.6-17.2) % Plt Count (150-450) th/mm3 MPV (7.0-11.0) fL Prelim Diff (Auto) Neut % (Auto) (16.0-70.0) % Lymph % (Auto) (9.0-44.0) % Beauregard % (Auto) (0.0-8.0) % Eos % (Auto) (0.0-4.0) % Baso % (Auto) (0.0-2.0) % Neut # (Auto) (1.8-7.7) th/mm3 Lymph # (Auto) (1.0-4.8) th/mm3 Bea[place]gard # (Auto) (0.0-0.9) th/mm3 Eos # (Auto) (0.0-0.4) th/mm3 Baso # (Auto) (0.0-0.2) th/mm3 WBC Differential Diff Scan Differential Comment Platelet Estimate (Normal) Platelet Morphology (Normal) PT (9.8-11.6) sec INR Ratio APTT (24.3-30.1) sec Puncture Site Left brachial Patient Temperature 98.6 O2 Saturation 92 (90-100) % ABG pH 7.49 H (7.380-7.420) ABG pCO2 24 L* (38-42) mmHg ABG pO2 69 (61-120) mmHg ABG HCO3 18 L (22-26) mmol/L ABG O2 Content 10.2 L (12.0-20.0) Vol % ABG Base Excess -4.8 L (-2-2) mmol/L ABG Methemoglobin 0.6 (0-2) % Hemoglobin 7.8 L* (12.0-16.0) G/DL Carboxyhemoglobin 1.9 (0-4) % O2 Delivery Device Room air Inspired O2 21 % Critical Value Yes Sodium (136-145) meq/L Potassium (3.5-5.1) meq/L Chloride (98-107) meq/L Carbon Dioxide (21.0-32.0) meq/L Anion Gap (5-15) meq/L BUN (7-18) mg/dL Creatinine (0.50-1.00) mg/dL Estimated GFR (>89) mL/min Random Glucose (74-106) mg/dL Osmolality 294 (275-295) mosm/kg Lactic Acid (0.4-2.0) mmol/L Calcium (8.5-10.1) mg/dL Phosphorus (2.5-4.9) mg/dL Magnesium (1.5-2.5) mg/dL Total Bilirubin (0.2-1.0) mg/dL AST (15-37) U/L ALT (10-53) U/L Alkaline Phosphatase (45-117) U/L Total Creatine Kinase (26-192) U/L Troponin I (0.02-0.05) ng/mL Total Protein (6.4-8.2) g/dL Albumin (3.4-5.0) g/dL Lipase (73-393) U/L Beta HCG, Quant (0-5) mIU/mL Random Vancomycin Comment Imaging Data Radiologist's impression: Chest X-Ray 07/13/18 20:06 CONCLUSION: Mid inspiratory exam with new bilateral airspace disease right greater than left. This could represent pneumonia. Abdomen/Pelvis CT 07/13/18 20:07 CONCLUSION: 1. Bibasilar patchy airspace disease and minimal pleural fluid. 2. Moderate amount of diffuse ascites as well as anasarca. 3. Nonobstructive bowel gas pattern with poor delineation of the bowel secondary to anasarca, lack of intravenous and oral contrast. 4. Cardiomegaly. ECG Data Attestation: I personally reviewed and interpreted this ECG as follows: Interpretation: Rate: 128 BPM Rhythm: Sinus [place]: Normal Intervals: Normal intervals, no blocks, QTc 385 ms Q waves: III, aVF T waves: Inverted in I, aVL ST segments: No elevations or depressions Impression: Sinus tachycardia, new T wave inversions in I and aVL when compared to EKG from 07/08/2006. Discharge Plan Discharge Disposition Patient Disposition: 30 Still Patient Discharge Condition Condition: Fair Discharge Details Diagnosis: Endocarditis, Sepsis, End-stage renal disease (ESRD), Hyperkalemia, Acidosis, lactic, Ascites Physicians Team ED Provider: Mariam Breaux ED Midlevel Provider: Neda Sharma Primary Care Provider: UNKNOWN, Attending Provider: Agustin Hussein Other Providers: Paty Trujillo ; Bhargav Monge ; Chace Benjamin Status ED Status: Left Department Discharge Information Discharge Date/Time: 07/13/18 22:22
[2018-07-13] MEDS ORDERED: Morphine Inj 4 MG/ML Vial IV.PUSH ONE (20:18)
[2018-07-13] MEDS ORDERED: Bisacodyl 10 MG Supp RECTAL PRN (20:32)
[2018-07-13 20:43] LABS: Baso # (Auto) 0.2 th/mm3 (0.0-0.2); Baso % (Auto) 1.6 % (0.0-2.0); Eos % (Auto) 0.4 % (0.0-4.0); Hemoglobin 8.5 gm/dL (11.6-15.3); Lymph % (Auto) 17.3 % (9.0-44.0); Mean Corpuscular HGB Conc 31.4 % (32.0-36.0); Mean Corpuscular Hemoglobin 28.2 pg (27.0-34.0); Mono # (Auto) 1.3 th/mm3 (0.0-0.9); Mono % (Auto) 11.2 % (0.0-8.0); Neut # (Auto) 8.1 th/mm3 (1.8-7.7); Neut % (Auto) 69.5 % (16.0-70.0); Platelet Count 317 th/mm3 (150-450); Red Blood Count 3.01 mil/mm3 (4.00-5.30); Red Cell Distribution Width 18.3 % (11.6-17.2); White Blood Count 11.6 th/mm3 (4.0-11.0)
--- NOTE | 2018-07-13 20:47 | XR ---
EXAM DATE: 07/13/2018 8:43 PM EDT AGE/SEX: 28 years / Female INDICATIONS: Fever. CLINICAL DATA: This is the patient's initial encounter. Patient reports that signs and symptoms have been present for 1 day and indicates a pain score of 3/10. MEDICAL/SURGICAL HISTORY: . Asthma. Hepatitis C . COMPARISON: [facility] [place], CHEST 1V SINGLE AP, 05/04/2018. . FINDINGS: A single AP erect portable view of the chest was obtained. This demonstrates interval placement of a right-sided port catheter with tip projected over the superior vena cava. The study is mid inspirator y with crowding of the lung vasculature. New patchy airspace disease is noted in both lungs right gre ater than left. The costophrenic angles not well visualized. The heart size is at the upper limits of normal. CONCLUSION: Mid inspiratory exam with new bilateral airspace disease right greater than left. This could represen t pneumonia. Electronically signed by: Mejia West MD 07/13/2018 8:45 PM EDT
[2018-07-13 20:51] LABS: Activated Partial Thrombo Time 27.9 sec (24.3-30.1); INR 1.7 Ratio; Prothrombin Time 17.1 sec (9.8-11.6)
[2018-07-13 20:53] LABS: Anion Gap 14 meq/L (5-15); Aspartate Aminotransferase 13 U/L (15-37); Blood Urea Nitrogen 50 mg/dL (7-18); Calcium 8.3 mg/dL (8.5-10.1); Carbon Dioxide 15.6 meq/L (21.0-32.0); Chloride 101 meq/L (98-107); Glomerular Filtration Rate 10 mL/min (>89); Glucose,Random 106 mg/dL (74-106); Lipase 72 U/L (73-393); Magnesium 1.9 mg/dL (1.5-2.5); Potassium 5.9 meq/L (3.5-5.1); Sodium 131 meq/L (136-145)
--- NOTE | 2018-07-13 20:53 | P.HPCC ---
History of Present Illness Service: Critical Care Medicine Primary Care Physician: UNKNOWN Chief Complaint: fever History of Present Illness: This is a 28-year-old female who was recently admitted back in May for infective endocarditis of the tricuspid valve and septic shock. At that time she left AGAINST MEDICAL ADVICE. She then stated that she went to [facility] where she was admitted and was very ill for at least a month or so. She states that she had a breathing tube and was on life support for some time.. She also states that she has a pressure ulcer from that hospitalization. Most recently, she states that her kidneys have failed and she has a dialysis catheter in place in the right neck that she states was placed today. She did not like it at that facility so she states she left AMA to come back to our facility. She endorses fever, chills, chest pain, fatigue, malaise, rigors, shortness of breath. In the emergency department she was febrile. She has an elevated white blood cell count. She also has a creatinine of 5, sodium 131, potassium of 5.9, lactate greater than 3. Inpatient Certification: I certify that the inpatient services were ordered in accordance with Medicare regulations governing the order. This includes certification that hospital inpatient services are reasonable and necessary and in the case of services not specified as inpatient-only under 42 CFR 419.22(n), that they are appropriately provided as inpatient services in accordance to with the 2-midnight benchmark under 43 CFR 412.3(e) Estimated Total Length of Stay (Days): 7 Plans for Post Hospital Care: Not yet determined Review of Systems All other systems reviewed negative except as stated in HPI [facility] [place] - History History Provided By: Patient - Medical History Medical History: Medical History (Last Updated 07/13/18 @ 19:53 by Hao Medrano RN) Cholecystitis (Acute) Asthma (Acute) Endocarditis Hemodialysis patient - Family History Family History: Family History (Last Reviewed 05/05/18 @ 13:03 by Paty Trujillo MD) Father Family history of cancer Mother Family history of acute myocardial infarction - Tobacco History Second Hand Smoke Exposure: No Smoking Status: Never smoker Tobacco Type: Cigarettes - Alcohol History How Often Do You Have a Drink Containing Alcohol: Never - Substance Use History Substance History: Active Abuse, Past History - Substance Use Type Heroin Status: Active Route Used: Intravenously Reason for Use: Get High - Travel History Recent Travel in the [place] Within the Last 8 Weeks: No Recent Travel Out of the Country Within the Last 8 Weeks: No - Immunization History Tetanus Immunization: <5 Years Hx Influenza Vaccine This Season: No Medications and Allergies Active Medications: Active Medications Acetaminophen (Tylenol) 650 mg PO Q6H PRN PRN Reason: TEMPERATURE > 101 F Albuterol (Duoneb Neb (Prn)) 1 ampul NEB Q2HR NEB PRN PRN Reason: WHEEZING Bisacodyl (Dulcolax Supp) 10 mg RECTAL DAILY PRN PRN Reason: if no BM in last 24h Chlorhexidine Gluconate (Chlorhexidine 2% Cloth) 3 pack TOPICAL DAILY@0400 SERGE Stop: 07/19/18 03:59 Chlorhexidine Gluconate (Chlorhexidine 2% Cloth) 3 pack TOPICAL DAILY@0400 PRN PRN Reason: Extra cloth needed Stop: 07/19/18 03:59 Dextrose (D50w Syringe) 50 ml IV.PUSH UNSCH PRN PRN Reason: PER HYPOGLYCEMIA PROTOCOL Famotidine (Pepcid) 20 mg PO BID [facility] Folic Acid (Folic Acid) 1 mg PO DAILY [facility] Stop: 07/17/18 08:59 Glucagon (Glucagon Inj) 1 mg IM ONCE PRN PRN Reason: blood sugar < 60, no iv access Heparin Sodium (Porcine) (Heparin Inj) 5,000 units SQ Q8HR [facility] Hydromorphone HCl (Dilaudid Pf Inj) 0.25 mg IV.PUSH Q1H PRN PRN Reason: pain 8-10 or not taking po Multivitamins 10 ml/ Thiamine HCl 100 mg/ Folic Acid 1 mg/Sodium Chloride 511.2 mls @ 125 mls/hr IV.SIG Q24H [facility] Stop: 07/16/18 01:06 Insulin Human Regular (Novolin R Inj) 1 units SQ Q6HR SERGE; Protocol Lactulose (Lactulose Liq) 30 ml PO BID SERGE Ondansetron HCl (Zofran Inj) 4 mg IV.PUSH Q6H PRN PRN Reason: NAUSEA OR VOMITING Oxycodone HCl (Roxicodone) 5 mg PO Q4H PRN PRN Reason: Pain 1-5 Polyethylene Glycol (Miralax) 17 gm PO BID [facility] Senna/Docusate Sodium (Jud-Colace) 1 tab PO BID [facility] Sodium Chloride (Ns Flush) 2 ml IV.FLUSH UNSCH PRN PRN Reason: FLUSH AFTER USING IV ACCESS Thiamine HCl (Vitamin B1) 100 mg PO DAILY [facility] Stop: 07/17/18 08:59 Allergies Allergy/AdvReac Type Severity Reaction Status Date / Time sweet potato Allergy Severe Hives Verified 05/29/18 19:49 amoxicillin Allergy Intermediate SWELLING, Verified 05/29/18 19:49 HIVES penicillin G Allergy Intermediate Hives Verified 05/29/18 19:49 Home Medications Medication Instructions Recorded Confirmed Type No Known Home Medications 05/04/18 07/13/18 History Results - Labs CBC & Chem 7: 07/13/18 20:22 07/13/18 20:22 Labs: Short CBC 07/13/18 Range/Units 20:22 WBC 11.6 H (4.0-11.0) th/mm3 Hgb 8.5 L (11.6-15.3) gm/dL Hct 27.0 L (35.0-46.0) % Plt Count 317 (150-450) th/mm3 - Imaging Impressions Chest X-Ray 07/13/18 20:06 CONCLUSION: Mid inspiratory exam with new bilateral airspace disease right greater than left. This could represent pneumonia. Exam Vital signs: Vital Signs 07/13/18 19:51 07/13/18 19:53 07/13/18 20:11 Temperature 37.8 C H 37.6 C H Pulse Rate 133 H 126 H Respiratory Rate 28 H 18 Blood Pressure 146/107 H 150/91 H Pulse Oximetry 96 97 97 07/13/18 20:49 Temperature Pulse Rate Respiratory Rate Blood Pressure Pulse Oximetry 97 Intake & Output 07/13/18 07/13/18 07/14/18 06:59 18:59 06:59 Weight 43.545 kg Narrative: GENERAL: Young female, lying in bed, very deconditioned, in distress. HEENT: Normocephalic. Atraumatic. Pupils equal, round, reactive, conjugate. Mucous membranes are dry NECK: Trachea is midline. Significant JVD up to the level of mandible. There is a right IJ large dialysis catheter in place, with a dressing that is intact. CHEST: Tachypneic. Equal chest rise. Room air. CARDIOVASCULAR: Tachycardic rate, regular rhythm. Sinus. Holosystolic murmur. ABDOMEN: Soft, nontender, nondistended. No guarding. MUSCULOSKELETAL: Pulses 2+. 2+ peripheral pitting edema. There is a small area of skin breakdown on the coccyx which is present on admission, it is approximately 1 cm x 1 cm. It appears to be a healing decubitus ulcer which may still be stage II to stage III. NEUROLOGICAL: RASS -1. Moves all extremities. Follows commands. No focal deficits. Musculoskeletal strength 5/5 in all 4 extremities. Sensation grossly intact. Cranial nerves II through XII grossly intact. Septic Shock Reassessment Septic shock perfusion: reassessment completed Caprini VTE Risk Assessment Caprini VTE Risk Assessment: Moderate/High Risk (score >= 2) Caprini Risk Assessment Model: Point Value = 1 Point Value = 2 Point Value = 3 Point Value = 5 Age 41-60 Minor surgery BMI > 25 kg/m2 Swollen legs Varicose veins or History of unexplained or recurrent spontaneous Oral contraceptives or hormone replacement Sepsis (< 1 month) Serious lung disease, including pneumonia (< 1 month) Abnormal pulmonary function Acute myocardial infarction Congestive heart failure (< 1 month) History of inflammatory bowel disease Medical patient at bed rest Age 61-74 Arthroscopic surgery Major open surgery (> 45 min) Laparoscopic surgery (> 45 min) Malignancy Confined to bed (> 72 hours) Immobilizing plaster cast Central venous access Age >= 75 History of VTE Family history of VTE Factor V Leiden Prothrombin [id number] Lupus anticoagulant Anticardiolipin antibodies Elevated serum homocysteine Heparin-induced thrombocytopenia Other congenital or acquired thrombophilia Stroke (< 1 month) Elective arthroplasty Hip, pelvis, or leg fracture Acute spinal cord injury (< 1 month) Prophylaxis Regimen: Total Risk Factor Score Risk Level Prophylaxis Regimen 0-1 Low Early ambulation 2 Moderate Order ONE of the following: *Sequential Compression Device (SCD) *Heparin 5000 units SQ BID 3-4 Higher Order ONE of the following medications: *Heparin 5000 units SQ TID *Enoxaparin/Lovenox 40 mg SQ daily (WT < 150 kg, CrCl > 30 mL/min) *Enoxaparin/Lovenox 30 mg SQ daily (WT < 150 kg, CrCl > 10-29 mL/min) *Enoxaparin/Lovenox 30 mg SQ BID (WT < 150 kg, CrCl > 30 mL/min) AND/OR *Sequential Compression Device (SCD) 5 or more Highest Order ONE of the following medications: *Heparin 5000 units SQ TID (Preferred with Epidurals) *Enoxaparin/Lovenox 40 mg SQ daily (WT < 150 kg, CrCl > 30 mL/min) *Enoxaparin/Lovenox 30 mg SQ daily (WT < 150 kg, CrCl > 10-29 mL/min) *Enoxaparin/Lovenox 30 mg SQ BID (WT < 150 kg, CrCl > 30 mL/min) AND *Sequential Compression Device (SCD) Assessment and Plan - Assessment and Plan Plan: Assessment: 28-year-old female with infective tricuspid valve endocarditis and multiorgan dysfunction secondary to endocarditis as well as mixed septic and cardiogenic shock. We are obtaining records from outside hospital. It is unclear what her clinical course has been, but she does clearly appear to be in acute renal failure as well as volume overload, heart failure secondary to valvulopathy, and septic shock. I think her dialysis catheter should be exchanged, but in the interest of taking care of her medical needs acutely, we will keep this line for now. I have had a long discussion with the patient which I explained that every time she leaves AGAINST MEDICAL ADVICE and returns she is sick her with new and worsening shock and worsening organ failure. In particular, her readmission today versus last admission in May she is far more critically ill and more deconditioned. I explained that I am very worried that if she leaves AGAINST MEDICAL ADVICE again, she will likely of this illness. I have consulted palliative care to ask their assistance in discussing with the patient and her overall goals of care, particularly if she continues to leave AGAINST MEDICAL ADVICE. For now she is very critically ill with multiorgan failure. Plan by systems: Neurologic: IV drug dependence frequent neuro checks watch for signs of withdraw prn oxycodone to prevent withdraws send urine drug screen avoid long-acting sedatives Respiratory: Acute hypoxemia Septic pulmonary emboli Wean oxygen by nasal cannula for goal SPO2 greater than 90% Will likely need diuresis, but while in shock with end-stage renal disease unable to do this successfully at this time. Cardiovascular: Infective tricuspid valve endocarditis Moderate tricuspid valve regurgitation Mixed septic and cardiogenic shock secondary to infective endocarditis Sinus tachycardia Troponin secondary to myocardial injury from endocarditis Trend troponins Keep on telemetry Will likely need diuresis, but unable to accomplish is currently while in shock Trend lactates Renal: Severe acute kidney injury requiring renal replacement therapy. Patient came with outside hospital dialysis access in place. Given risk-benefit , will continue OSH dialysis access until more information can be obtained. nephrology consult will likely need ongoing dialysis during this admission Obtain urine electrolytes -- Strict I/Os FEN/GI: Acute metabolic anion gap acidosis Acute lactic acidosis Hyperkalemia Severe acute protein calorie malnutrition Acute liver injury Hyponatremia NPO while in shock volume status quite tenuous: septic picture may require fluid resuscitation but in the setting of heart failure and cardiogenic shock from infective endocarditis, complicated by acute renal failure. send prealbumin daily cmp, mg, phos liver injury secondary to shock. Hyponatremia is likely secondary to volume overload from cardiogenic shock. Will check serum and urine osmolality. Heme/ID: Infective Endocarditis, Tricuspid valve Septic Shock in last admission, MSSA repeat peripheral blood cultures x 2 send 2 blood cultures from dialysis catheter which is in place urine cultures sputum culture random vanc level: 15. needs to be closer to 20. will give 500mg iv x 1 and ask pharmacy to assist with dosing. cefepime 1gm iv q24h given renal insufficiency re-consult infectious disease Endocrine: -- SSI Prophylaxis: GI Prophylaxis pepcid DVT Prophylaxis -- SCDs SQH Lines: piv may require central access OSH dialysis catheter- unknown date of insertion. keep for urgent access. will likely need to be replaced at some point in the near future. Dispo: admit to ICU. critically ill. This patient remains critically ill with one or more organ systems which are or may become a threat to life. I have spent in excess of 41 minutes discontinuously in the care and management of this patient. This time is exclusive of procedures, and includes, but is not limited to, evaluation of the patient, review of the medical record, discussions with family, consultants, nursing staff, or respiratory therapy, and documentation in the medical record.
[2018-07-13 20:54] LABS: Alanine Aminotransferase 8 U/L (10-53)
--- NOTE | 2018-07-13 20:54 | CT ---
EXAM DATE: 07/13/2018 8:42 PM EDT AGE/SEX: 28 years / Female INDICATIONS: Abdominal pain. Distention. CLINICAL DATA: This is the patient's initial encounter. Patient reports that signs and symptoms have been present for 1 day and indicates a pain score of 8/10. MEDICAL/SURGICAL HISTORY: Asthma. Endocarditis. Hemodialysis. IV drug abuse. Sepsis. None. RADIATION DOSE: 6.64 CTDI (mGy) COMPARISON: [facility] [place], [place] ABDOMEN & PELVIS W CONTRAST, 05/04/2018. . TECHNIQUE: Multiple contiguous axial images were obtained through the abdomen. Images were obtained using multiple row detector helical technique. Using automated exposure control and adjustment of the mA and/or kV according to patient size, radiation dose was kept as low as reasonably achievable to o btain optimal diagnostic quality images. DICOM format image data is available electronically for rev iew and comparison. FINDINGS: No oral or intravenous contrast was given limiting the sensitivity of the exam. Lower Lungs: Patchy areas of consolidation are noted in both lung bases right greater than left. Ther e are minimal effusions. There is moderate cardiomegaly. Liver: The liver has a homogeneous density without space-occupying lesion. There is no dilation of th e biliary tree. Calcified gallstones are again noted in the gallbladder. There is a moderate amount of diffuse ascite s. Spleen: Homogeneous density without enlargement. Pancreas: Unremarkable without mass or calcification. Kidneys: Normal in size and shape. No evidence of mass or hydronephrosis. Adrenal Glands: Unremarkable. Aorta: The aorta and proximal iliac vessels are grossly unremarkable without aneurysmal dilation. Bowel/Mesentery: No oral contrast was given limiting the sensitivity of the exam. There is diffuse a scites and anasarca with poor visualization of the bowel loops. There is no evidence of obstruction. A moderate amount of stool is noted throughout the colon. There is no free air. Abdominal Wall: Intact. Retroperitoneum: No evidence of adenopathy in the retrocrural, para-aortic, or deep pelvic regions. Bladder: Contours are smooth. Reproductive Organs: No abnormal masses or calcifications seen. Inguinal: The inguinal region is unremarkable without evidence of adenopathy. Bony Structures: There is diffuse anasarca. Bony structures are intact. CONCLUSION: 1. Bibasilar patchy airspace disease and minimal pleural fluid. 2. Moderate amount of diffuse ascites as well as anasarca. 3. Nonobstructive bowel gas pattern with poor delineation of the bowel secondary to anasarca, lack o f intravenous and oral contrast. 4. Cardiomegaly. Electronically signed by: Mejia West MD 07/13/2018 8:52 PM EDT
[2018-07-13 20:58] LABS: Alkaline Phosphatase 112 U/L (45-117); Beta HCG,Quantitative 1 mIU/mL (0-5); Total Protein 7.6 g/dL (6.4-8.2); Troponin I 0.02 ng/mL (0.02-0.05); Vancomycin,Random 14.8 Comment
[2018-07-13 21:01] LABS: Creatine Kinase 12 U/L (26-192)
[2018-07-13 21:04] LABS: Platelet Estimate Normal (Normal); Platelet Morphology Normal (Normal)
[2018-07-13] MEDS ORDERED: Vancomycin Consult Pharmacy OTHER PRN (21:25)
[2018-07-13] MEDS ORDERED: Vancomycin Inj 500 MG in Sodium Chlor 0.9% Inj 100 ML IV.SIG ONE (21:25)
[2018-07-13] MEDS: Famotidine 20 MG Tablet PO SCH (21:28)
[2018-07-13] MEDS: Heparin - SQ 10,000 UNITS/ML Vial SQ SCH (21:55)
[2018-07-13] MEDS: Polyethylene Glycol 3350 17 GM Packet PO SCH (22:09)
[2018-07-13] MEDS: Senna/Docusate Sodium 8.6/50 MG Tablet PO SCH (22:09)
[2018-07-13 22:13] LABS: Phosphorus 1.7 mg/dL (2.5-4.9)
[2018-07-13 22:31] LABS: ABG Base Excess -4.8 mmol/L (-2-2); ABG PCO2 24 mmHg (38-42); ABG PO2 69 mmHg (61-120)
[2018-07-13] MEDS ORDERED: Vancomycin Inj 1,000 MG in Sodium Chlor 0.9% Inj 250 ML IV.SIG ONE (23:00)
[2018-07-14] MEDS: Insulin NovoLIN Regular Correctional Sugar Inj SQ SCH ×4 (00:16→17:29)
[2018-07-14] MEDS: Multivitamin Inj 10 ML, Thiamine Inj 100 MG, Folic Acid Inj 1 MG in Sodium Chlor 0.9% I... IV.SIG SCH ×2 (03:28→23:24)
[2018-07-14] MEDS: Chlorhexidine Gluconate 2% 1 Pack (2 Cloths) TOPICAL SCH (03:30)
[2018-07-14] MEDS ORDERED: Chlorhexidine Gluconate 2% 1 Pack (2 Cloths) TOPICAL PRN (04:00)
[2018-07-14 04:13] LABS: Baso # (Auto) 0.2 th/mm3 (0.0-0.2); Baso % (Auto) 1.2 % (0.0-2.0); Eos # (Auto) 0.1 th/mm3 (0.0-0.4); Eos % (Auto) 0.6 % (0.0-4.0); Hematocrit 25.8 % (35.0-46.0); Lymph # (Auto) 3.3 th/mm3 (1.0-4.8); Lymph % (Auto) 25.1 % (9.0-44.0); Mean Corpuscular HGB Conc 31.2 % (32.0-36.0); Mean Corpuscular Hemoglobin 28.3 pg (27.0-34.0); Mean Corpuscular Volume 90.7 fL (80.0-100.0); Mean Platelet Volume 8.2 fL (7.0-11.0); Mono # (Auto) 1.5 th/mm3 (0.0-0.9); Mono % (Auto) 11.5 % (0.0-8.0); Neut # (Auto) 8.2 th/mm3 (1.8-7.7); Neut % (Auto) 61.6 % (16.0-70.0); Platelet Count 292 th/mm3 (150-450); Red Blood Count 2.84 mil/mm3 (4.00-5.30); White Blood Count 13.3 th/mm3 (4.0-11.0)
[2018-07-14 04:30] LABS: INR 1.7 Ratio
[2018-07-14 04:44] LABS: Albumin 1.8 g/dL (3.4-5.0); Anion Gap 14 meq/L (5-15); Aspartate Aminotransferase 10 U/L (15-37); Blood Urea Nitrogen 52 mg/dL (7-18); Carbon Dioxide 18.4 meq/L (21.0-32.0); Chloride 103 meq/L (98-107); Glomerular Filtration Rate 10 mL/min (>89); Glucose,Random 90 mg/dL (74-106); Potassium 5.7 meq/L (3.5-5.1); Sodium 135 meq/L (136-145)
[2018-07-14 04:48] LABS: Alkaline Phosphatase 97 U/L (45-117); Phosphorus 2.3 mg/dL (2.5-4.9); Total Protein 7.1 g/dL (6.4-8.2)
[2018-07-14] MEDS: HYDROmorphone PF Inj 2 MG/ML Vial IV.PUSH PRN ×3 (05:21→23:23)
[2018-07-14] MEDS: Heparin - SQ 10,000 UNITS/ML Vial SQ SCH ×3 (05:21→22:21)
[2018-07-14 05:52] LABS: Bacteria,Urine Few /hpf; Bilirubin,Urine Negative (Negative); Clarity,Urine Cloudy (Clear); Color,Urine Amber (Yellw/Straw); Glucose,Urine (UA) 50 mg/dL (Negative); Leukocyte Esterase,Urine Moderate (Negative); Mucus,Urine Few /lpf (Occasional); Nitrite,Urine Negative (Negative); Squamous Epithelial Cell,Urine 53 /hpf (0-5)
[2018-07-14 05:57] LABS: Creatinine,Urine Random 58 mg/dL (27-300); Sodium,Urine Random 51 meq/L
--- NOTE | 2018-07-14 07:40 | P.PNCC ---
Subjective Subjective Remarks/Hospital Course: This is a 28-year-old female who was recently admitted back in May for infective endocarditis of the tricuspid valve and septic shock. At that time she left AGAINST MEDICAL ADVICE. She then stated that she went to [facility] where she was admitted and was very ill for at least a month or so. She states that she had a breathing tube and was on life support for some time.. She also states that she has a pressure ulcer from that hospitalization. Most recently, she states that her kidneys have failed and she has a dialysis catheter in place in the right neck that she states was placed today. She did not like it at that facility so she states she left AMA to come back to our facility. She endorses fever, chills, chest pain, fatigue, malaise, rigors, shortness of breath. In the emergency department she was febrile. She has an elevated white blood cell count. She also has a creatinine of 5, sodium 131, potassium of 5.9, lactate greater than 3. SUBJ 07/14: Ill-appearing lady lying in ICU bed. Bedside ultrasound shows large tricuspid vegetation with associated moderate to severe TR. also bedside ultrasound shows moderate ascites, patient is tender paracentesis is indicated with fluid studies to rule out an SBP. Patient remains very critical unfortunately I do not think she is a candidate for valve replacement due to noncompliance and leaving AMA multiple times Objective Vital Signs / I&O: Vital Signs 07/13/18 19:51 07/13/18 19:53 07/13/18 20:11 Temperature 100.1 F H 99.7 F H Pulse Rate 133 H 126 H Respiratory Rate 28 H 18 Blood Pressure 146/107 H 150/91 H Pulse Oximetry 96 97 97 07/13/18 20:49 07/13/18 20:53 07/13/18 21:11 Temperature 100.4 F H 100.7 F H Pulse Rate 120 H 122 H Respiratory Rate 18 20 Blood Pressure 150/91 H 150/91 H Pulse Oximetry 97 95 95 07/13/18 22:30 07/13/18 23:00 07/14/18 00:00 Temperature 99.1 F 98.9 F Pulse Rate 118 H 116 H 100 H Respiratory Rate 22 20 Blood Pressure 138/97 H 137/100 H Pulse Oximetry 94 L 95 07/14/18 01:00 07/14/18 04:00 Temperature 98.7 F Pulse Rate 113 H Respiratory Rate 20 Blood Pressure 138/105 H Pulse Oximetry 95 94 L Intake & Output 07/13/18 07/14/18 07/14/18 18:59 06:59 18:59 Intake Total 1350 / 1350 Output Total 15 15 Balance 1335 / 1335 Weight 60 kg Intake: IV 1350 / 1350 Maxipime Inj 2,000 MG In NS Inj 100 / 100 100 ML @ 200 mls/hr IV.SIG ONCE ONE Rx#:[id number] NS Inj 1,000 ML @ Wide Open IV. 1000 / 1000 SIG BOLUS ONE Rx#:[id number] Vancomycin Inj 1,000 MG In NS 250 / 250 Inj 250 ML @ 250 mls/hr IV.SIG ONCE ONE Rx#:[id number] Output: Urine Other: Date of Last Bowel Movement 07/13/18 # Bowel Movements 0 Weight On Admission 59.5 kg Result Diagrams: 07/14/18 02:52 07/14/18 02:52 Objective Remarks: GENERAL: Young female, lying in bed, deconditioned, critically ill appears in distress. HEENT: Normocephalic. Atraumatic. Pupils equal, round, reactive, conjugate. Mucous membranes are dry NECK: Trachea is midline. Significant JVD up to the level of mandible. There is a right IJ large dialysis catheter in place, with a dressing that is intact. CHEST: Tachypneic. Equal chest rise. Room air. CARDIOVASCULAR: Tachycardic rate, regular rhythm. Sinus. Holosystolic murmur. Bedside echo shows large tricuspid regurgitation with moderate to severe MR ABDOMEN: Soft, distended with diffuse tenderness. No guarding. Bedside ultrasound shows moderate ascites MUSCULOSKELETAL: Pulses 2+. 2+ peripheral pitting edema. There is a small area of skin breakdown on the coccyx which is present on admission, it is approximately 1 cm x 1 cm. Appears to be a healing decubitus ulcer which may still be stage II to stage III. NEUROLOGICAL: RASS -1. Moves all extremities. Follows commands. No focal deficits. Musculoskeletal strength 5/5 in all 4 extremities. Sensation grossly intact. Assessment and Plan - Assessment and Plan Plan: Assessment: 28-year-old female with infective tricuspid valve endocarditis and multiorgan dysfunction secondary to endocarditis as well as mixed septic and cardiogenic shock. We are obtaining records from outside hospital. It is unclear what her clinical course has been, but she does clearly appear to be in acute renal failure as well as volume overload, heart failure secondary to valvulopathy, and septic shock. Per Dr. Hussein her dialysis catheter should be exchanged, but in the interest of taking care of her medical needs acutely, we will keep this line for now. Dr. Hussein had a long discussion with the patient which he explained that every time she leaves AGAINST MEDICAL ADVICE and returns she is sick her with new and worsening shock and worsening organ failure. In particular, her readmission today versus last admission in May she is far more critically ill and more deconditioned. Dr. Hussein explained that he is very worried that if she leaves AGAINST MEDICAL ADVICE again, she will likely of this illness. Consulted palliative care to ask their assistance in discussing with the patient and her overall goals of care, particularly if she continues to leave AGAINST MEDICAL ADVICE. For now she is very critically ill with multiorgan failure. Plan by systems: Neurologic: IV drug dependence frequent neuro checks watch for signs of withdrawal prn oxycodone to prevent withdraws send urine drug screen avoid long-acting sedatives Last use of IVDU per patient was before lat admission here 3-4 months ago, but I don't think patient is a reliable historian Respiratory: Acute hypoxemia Septic pulmonary emboli Wean oxygen by nasal cannula for goal SPO2 greater than 90% Fluid removal with dialysis, nephrology consulted Cardiovascular: Infective tricuspid valve endocarditis Moderate tricuspid valve regurgitation Mixed septic and cardiogenic shock secondary to infective endocarditis Sinus tachycardia Bedside echo shows large tricuspid regurgitation with moderate to severe TR With noncompliance and multiple AMA discharges, I doubt very much she is a candidate for valve replacement surgery Trend troponins, Keep on telemetry Nephrology consulted for hemodialysis Trend lactates Renal: Severe acute kidney injury requiring renal replacement therapy. Patient came with outside hospital dialysis access in place. Given risk-benefit, will continue OSH dialysis access until more information can be obtained. nephrology consulted will likely need ongoing dialysis during this admission Obtain urine electrolytes Strict I/Os FEN/GI: Acute anion gap metabolic acidosis Acute lactic acidosis Hyperkalemia Severe acute protein calorie malnutrition Acute liver injury Hyponatremia NPO while in shock volume status quite tenuous: septic picture may require fluid resuscitation but in the setting of heart failure and cardiogenic shock from infective endocarditis, complicated by acute renal failure. send prealbumin daily cmp, mg, phos liver injury secondary to shock. Hyponatremia is likely secondary to volume overload from cardiogenic shock. Follow-up serum and urine osmolality. Heme/ID: Infective Endocarditis, Tricuspid valve Septic Shock in last admission, MSSA repeat peripheral blood cultures x 2 F/u 2 blood cultures from dialysis catheter which is in place urine cultures, sputum culture random vanc level: 15. needs to be closer to 20. will give 500mg iv x 1 and ask pharmacy to assist with dosing. cefepime 1gm iv q24h given renal insufficiency, to cover for pseudomonas re-consulted infectious disease Endocrine: -- SSI Prophylaxis: GI Prophylaxis pepcid DVT Prophylaxis -- SCDs SQH Lines: piv may need central access OSH dialysis catheter- unknown date of insertion. keep for urgent access. will likely need to be replaced at some point in the near future. Dispo: Continue ICU. critically ill. This patient remains critically ill with one or more organ systems which are or may become a threat to life. I have spent in excess of 35 minutes discontinuously in the care and management of this patient. This time is exclusive of procedures, and includes, but is not limited to, evaluation of the patient, review of the medical record, discussions with family, consultants, nursing staff, or respiratory therapy, and documentation in the medical record. Code Status: Full Discussed Condition With: Patient and bedside RN
[2018-07-14] MEDS ORDERED: Sod Chloride 0.9% Inj 1,000 ML IV.CONT PRN (08:43)
[2018-07-14] MEDS ORDERED: Heparin 10,000 UNITS/10 ML Vial (for IV use) OTHER PRN (08:43)
[2018-07-14] MEDS ORDERED: Sod Chloride 0.9% Inj 1,000 ML OTHER PRN ×2 (08:43)
[2018-07-14] MEDS ORDERED: Gelatin 12 MM/7 MM Topical Foam TOPICAL PRN (08:43)
[2018-07-14] MEDS ORDERED: Albumin Human 25% Inj 100 ML IV.SIG PRN (08:43)
[2018-07-14] MEDS ORDERED: Acetaminophen 325 MG Tablet PO PRN (08:43)
--- NOTE | 2018-07-14 09:22 | P.CONNP ---
<Debbie Godinez - Last Filed: 07/14/18 15:43> History of Present Illness Service: Nephrology Consult date: 07/14/18 Requesting Physician: Agustin Hussein Reason for Consult: Acute kidney injury requiring hemodialysis Primary Care Provider: UNKNOWN Family Provider: No Primary Care Physician Chief Complaint: fever History of Present Illness: Patient is a 28-year-old female presents to the emergency department for evaluation of fever, endocarditis. Was admitted to [facility] and left AMA. She is an IV drug user. Nephrology is consulted for management of acute kidney failure on hemodialysis. Hemodialysis catheter in right IJ. Creatinine at 5.26 and potassium level of 5.7. Patient reports that last hemodialysis was done on Wednesday. Patient is a poor historian and falling asleep when I was asking questions about past medical history. Reports all over discomfort and malaise. . [facility] - History History Provided By: Patient - Medical History Medical History: Medical History (Last Updated 07/13/18 @ 19:53 by Hao Medrano RN) Cholecystitis (Acute) Asthma (Acute) Endocarditis Hemodialysis patient - Family History Family History: Family History (Last Reviewed 05/05/18 @ 13:03 by Paty Trujillo MD) Father Family history of cancer Mother Family history of acute myocardial infarction - Tobacco History Second Hand Smoke Exposure: No Smoking Status: Never smoker Tobacco Type: Cigarettes - Alcohol History How Often Do You Have a Drink Containing Alcohol: Never - Substance Use History Substance History: Active Abuse, Past History - Substance Use Type Heroin Status: Active Route Used: Intravenously Reason for Use: Get High - Travel History Recent Travel in the [facility] Within the Last 8 Weeks: No Recent Travel Out of the Country Within the Last 8 Weeks: No - Immunization History Tetanus Immunization: <5 Years Hx Influenza Vaccine This Season: No Medications and Allergies Allergies Allergy/AdvReac Type Severity Reaction Status Date / Time sweet potato Allergy Severe Hives Verified 05/29/18 19:49 amoxicillin Allergy Intermediate SWELLING, Verified 05/29/18 19:49 HIVES penicillin G Allergy Intermediate Hives Verified 05/29/18 19:49 Home Medications Medication Instructions Recorded Confirmed Type No Known Home Medications 05/04/18 07/13/18 History Active Medications: Active Medications Acetaminophen (Tylenol) 650 mg PO Q6H PRN PRN Reason: TEMPERATURE > 101 F Acetaminophen (Tylenol) 650 mg PO UNSCH PRN PRN Reason: SEE LABEL COMMENTS Albuterol (Duoneb Neb (Prn)) 1 ampul NEB Q2HR NEB PRN PRN Reason: WHEEZING Bisacodyl (Dulcolax Supp) 10 mg RECTAL DAILY PRN PRN Reason: if no BM in last 24h Chlorhexidine Gluconate (Chlorhexidine 2% Cloth) 3 pack TOPICAL DAILY@0400 [facility] Stop: 07/19/18 03:59 Last Admin: 07/14/18 03:30 Dose: 3 pack Chlorhexidine Gluconate (Chlorhexidine 2% Cloth) 3 pack TOPICAL DAILY@0400 PRN PRN Reason: Extra cloth needed Stop: 07/19/18 03:59 Clonidine HCl (Catapres) 0.1 mg PO UNSCH PRN PRN Reason: SEE LABEL COMMENTS Dextrose (D50w Syringe) 50 ml IV.PUSH UNSCH PRN PRN Reason: PER HYPOGLYCEMIA PROTOCOL Diphenhydramine HCl (Benadryl) 25 mg PO UNSCH PRN PRN Reason: SEE LABEL COMMENTS Epoetin Carlos Alberto (Epogen Inj) 10,000 unit IV.PUSH UNSCH PRN PRN Reason: SEE LABEL COMMENTS Famotidine (Pepcid) 10 mg PO BID [facility] Last Admin: 07/13/18 21:28 Dose: 10 mg Folic Acid (Folic Acid) 1 mg PO DAILY [facility] Stop: 07/19/18 08:59 Gelatin (Gelfoam 12 Mm/7 Mm Topical) 1 foam TOPICAL PRN PRN PRN Reason: help stop bleeding from site Gentamicin Sulfate (Gentamicin Inj) 20 mg OTHER WITH DIALYSIS PRN PRN Reason: Dwell Gentamycin Lock Glucagon (Glucagon Inj) 1 mg OTHER UNSCH PRN PRN Reason: FOR HYPOGLYCEMIA PROTOCOL Heparin Sodium (Porcine) (Heparin Inj) 5,000 units SQ Q8HR [facility] Last Admin: 07/14/18 05:21 Dose: 5,000 units Heparin Sodium (Porcine) (Heparin Inj) 1,000 units OTHER WITH DIALYSIS PRN PRN Reason: Dwell Heparin to Fill Catheter Heparin Sodium (Porcine) (Heparin Inj) 8,000 units OTHER WITH DIALYSIS PRN PRN Reason: for machine prime Hydromorphone HCl (Dilaudid Pf Inj) 0.25 mg IV.PUSH Q1H PRN PRN Reason: PAIN 8-10 OR NOT TAKING PO Last Admin: 07/14/18 05:21 Dose: 0.25 mg Multivitamins 10 ml/ Thiamine HCl 100 mg/ Folic Acid 1 mg/Sodium Chloride 511.2 mls @ 125 mls/hr IV.SIG Q24H [facility] Stop: 07/16/18 02:06 Last Admin: 07/14/18 03:28 Dose: Not Given Cefepime HCl 1,000 mg/ Sodium (Chloride) 100 mls @ 200 mls/hr IV.SIG Q24H [facility] Albumin Human (Flexbumin 25% Inj) 100 mls @ 60 mls/hr IV.SIG WITH DIALYSIS PRN PRN Reason: hypotension / volume replace Sodium Chloride (Ns Inj) 1,000 mls @ 0 mls/hr OTHER .Q0M PRN PRN Reason: for prime and rinse back Sodium Chloride (Ns Inj) 1,000 mls @ 200 mls/hr OTHER .Q5H PRN PRN Reason: for dialyzer flush PRN Sodium Chloride (Ns Inj) 1,000 mls @ 0 mls/hr IV.CONT .Q0M PRN PRN Reason: hypotension / volume replace Insulin Human Regular (Novolin R Correctional Sugar Inj) 0 units SQ Q6HR [facility]; Protocol Last Admin: 07/14/18 05:46 Dose: Not Given Lactulose (Lactulose Liq) 30 ml PO BID [facility] Last Admin: 07/13/18 21:28 Dose: 30 ml Mannitol (Mannitol Inj) 12.5 gm IV.PUSH UNSCH PRN PRN Reason: hypotension / volume replace Nitroglycerin (Nitrostat Sl) 0.4 mg SL Q5M PRN PRN Reason: CHEST PAIN Ondansetron HCl (Zofran Inj) 4 mg IV.PUSH Q6H PRN PRN Reason: NAUSEA OR VOMITING Ondansetron HCl (Zofran Inj) 4 mg IV.PUSH UNSCH PRN PRN Reason: NAUSEA OR VOMITING Oxycodone HCl (Roxicodone) 5 mg PO Q4H PRN PRN Reason: Pain 1-5 Pharmacy Profile Note (Vancomycin Consult Pharmacy) 1 each OTHER PRN PRN PRN Reason: Pharmacy to dose Polyethylene Glycol (Miralax) 17 gm PO BID [facility] Last Admin: 07/13/18 22:09 Dose: Not Given Senna/Docusate Sodium (Jud-Colace) 1 tab PO BID [facility] Last Admin: 07/13/18 22:09 Dose: Not Given Sodium Chloride (Ns Flush) 2 ml IV.FLUSH UNSCH PRN PRN Reason: FLUSH AFTER USING IV ACCESS Sodium Chloride (Ns Flush) 5 ml IV.FLUSH PRN PRN PRN Reason: flush each lumen during HD Thiamine HCl (Vitamin B1) 100 mg PO DAILY [facility] Stop: 07/19/18 08:59 Exam Vital signs: Vital Signs 07/13/18 19:51 07/13/18 19:53 07/13/18 20:11 Temperature 100.1 F H 99.7 F H Pulse Rate 133 H 126 H Respiratory Rate 28 H 18 Blood Pressure 146/107 H 150/91 H Pulse Oximetry 96 97 97 07/13/18 20:49 07/13/18 20:53 07/13/18 21:11 Temperature 100.4 F H 100.7 F H Pulse Rate 120 H 122 H Respiratory Rate 18 20 Blood Pressure 150/91 H 150/91 H Pulse Oximetry 97 95 95 07/13/18 22:30 07/13/18 23:00 07/14/18 00:00 Temperature 99.1 F 98.9 F Pulse Rate 118 H 116 H 100 H Respiratory Rate 22 20 Blood Pressure 138/97 H 137/100 H Pulse Oximetry 94 L 95 07/14/18 01:00 07/14/18 04:00 07/14/18 09:01 Temperature 98.7 F Pulse Rate 113 H Respiratory Rate 20 Blood Pressure 138/105 H Pulse Oximetry 95 94 L 95 07/14/18 09:04 Temperature Pulse Rate Respiratory Rate Blood Pressure Pulse Oximetry 95 Intake & Output 07/13/18 07/14/18 07/14/18 18:59 06:59 18:59 Intake Total 1350 / 1350 Output Total 15 15 Balance 1335 / 1335 Weight 60 kg Intake: IV 1350 / 1350 Maxipime Inj 2,000 MG In NS Inj 100 / 100 100 ML @ 200 mls/hr IV.SIG ONCE ONE Rx#:[id number] NS Inj 1,000 ML @ Wide Open IV. 1000 / 1000 SIG BOLUS ONE Rx#:[id number] Vancomycin Inj 1,000 MG In NS 250 / 250 Inj 250 ML @ 250 mls/hr IV.SIG ONCE ONE Rx#:[id number] Output: Urine Other: Date of Last Bowel Movement 07/13/18 # Bowel Movements 0 Weight On Admission 59.5 kg Narrative: GENERAL: Drowsy. NAD SKIN: Warm and dry. HD catheter right IJ HEAD: Normocephalic. EYES: No scleral icterus. No injection or drainage. NECK: Supple, trachea midline. No JVD or lymphadenopathy. CARDIOVASCULAR: Tachycardia. Regular rate and rhythm without murmurs, gallops, or rubs. RESPIRATORY: Breath sounds equal bilaterally. No accessory muscle use. GASTROINTESTINAL: Abdomen soft, non-tender. Distended. MUSCULOSKELETAL: No cyanosis, or edema. BACK: Nontender without obvious deformity. No CVA tenderness. Results - Lab Results 07/14/18 02:52 07/14/18 02:52 Most recent lab results ABG pH 7.49 (7.380-7.420) H 07/13/18 22:10 ABG pCO2 24 mmHg (38-42) L* 07/13/18 22:10 ABG pO2 69 mmHg (61-120) 07/13/18 22:10 ABG HCO3 18 mmol/L (22-26) L 07/13/18 22:10 Calcium 8.0 mg/dL (8.5-10.1) L 07/14/18 02:52 Phosphorus 2.3 mg/dL (2.5-4.9) L 07/14/18 02:52 Magnesium 2.0 mg/dL (1.5-2.5) 07/14/18 02:52 Assessment and Plan - Assessment (1) Acute kidney injury Code(s): N17.9 - Acute kidney failure, unspecified Status: Acute Plan: Acute kidney injury requiring hemodialysis Last hemodialysis was on Wednesday at [facility] Has right IJ Hemodialysis catheter. Creatinine at 5.26 Anuric Plan Avoid nephrotoxins including IV contrast and gadolinium. Hemodialysis planned for today at bedside, will remove fluid as tolerated Hyperkalemia will adjust K bath Epogen with dialysis Will monitor urinary output and BMP Labs in AM (2) Endocarditis Code(s): I38 - Endocarditis, valve unspecified Status: Acute Plan: On antibiotics Renal dose as appropriate (3) Hyperkalemia Code(s): E87.5 - Hyperkalemia Status: Acute Plan: Improvement expected after hemodialysis. K bath adjusted Labs in AM (4) Ascites Code(s): R18.8 - Other ascites Status: Acute Plan: Paracentesis planned for today <Keke Monge Garth - Last Filed: 07/15/18 16:08> History of Present Illness Primary Care Provider: UNKNOWN Family Provider: No Primary Care Physician [facility] - Medical History Medical History: Medical History (Last Updated 07/13/18 @ 19:53 by Hao Medrano RN) Cholecystitis (Acute) Asthma (Acute) Endocarditis Hemodialysis patient - Family History Family History: Family History (Last Reviewed 05/05/18 @ 13:03 by Paty Trujillo MD) Father Family history of cancer Mother Family history of acute myocardial infarction Medications and Allergies Active Medications: Active Medications Acetaminophen (Tylenol) 650 mg PO Q6H PRN PRN Reason: TEMPERATURE > 101 F Acetaminophen (Tylenol) 650 mg PO UNSCH PRN PRN Reason: SEE LABEL COMMENTS Albuterol (Duoneb Neb (Prn)) 1 ampul NEB Q2HR NEB PRN PRN Reason: WHEEZING Last Admin: 07/14/18 21:23 Dose: 1 ampul Bisacodyl (Dulcolax Supp) 10 mg RECTAL DAILY PRN PRN Reason: if no BM in last 24h Chlorhexidine Gluconate (Chlorhexidine 2% Cloth) 3 pack TOPICAL DAILY@0400 [facility] Stop: 07/19/18 03:59 Last Admin: 07/15/18 04:03 Dose: 3 pack Chlorhexidine Gluconate (Chlorhexidine 2% Cloth) 3 pack TOPICAL DAILY@0400 PRN PRN Reason: Extra cloth needed Stop: 07/19/18 03:59 Dextrose (D50w Syringe) 50 ml IV.PUSH UNSCH PRN PRN Reason: PER HYPOGLYCEMIA PROTOCOL Epoetin Carlos Alberto (Epogen Inj) 10,000 unit IV.PUSH UNSCH PRN PRN Reason: SEE LABEL COMMENTS Famotidine (Pepcid) 10 mg PO BID [facility] Last Admin: 07/15/18 08:01 Dose: 10 mg Folic Acid (Folic Acid) 1 mg PO DAILY [facility] Stop: 07/19/18 08:59 Gelatin (Gelfoam 12 Mm/7 Mm Topical) 1 foam TOPICAL PRN PRN PRN Reason: help stop bleeding from site Gentamicin Sulfate (Gentamicin Inj) 20 mg OTHER WITH DIALYSIS PRN PRN Reason: Dwell Gentamycin Lock Last Admin: 07/14/18 15:30 Dose: 20 mg Glucagon (Glucagon Inj) 1 mg OTHER UNSCH PRN PRN Reason: FOR HYPOGLYCEMIA PROTOCOL Heparin Sodium (Porcine) (Heparin Inj) 5,000 units SQ Q8HR [facility] Last Admin: 07/15/18 14:05 Dose: 5,000 units Heparin Sodium (Porcine) (Heparin Inj) 1,000 units OTHER WITH DIALYSIS PRN PRN Reason: Dwell Heparin to Fill Catheter Heparin Sodium (Porcine) (Heparin Inj) 8,000 units OTHER WITH DIALYSIS PRN PRN Reason: for machine prime Hydromorphone HCl (Dilaudid Pf Inj) 0.25 mg IV.PUSH Q1H PRN PRN Reason: PAIN 8-10 OR NOT TAKING PO Last Admin: 07/15/18 06:48 Dose: 0.25 mg Multivitamins 10 ml/ Thiamine HCl 100 mg/ Folic Acid 1 mg/Sodium Chloride 511.2 mls @ 125 mls/hr IV.SIG Q24H [facility] Stop: 07/16/18 02:06 Last Infusion: 07/15/18 04:23 Dose: Infused Cefepime HCl 1,000 mg/ Sodium (Chloride) 100 mls @ 200 mls/hr IV.SIG Q24H [facility] Last Infusion: 07/15/18 01:25 Dose: Infused Albumin Human (Flexbumin 25% Inj) 100 mls @ 60 mls/hr IV.SIG WITH DIALYSIS PRN PRN Reason: hypotension / volume replace Sodium Chloride (Ns Inj) 1,000 mls @ 0 mls/hr OTHER .Q0M PRN PRN Reason: for prime and rinse back Sodium Chloride (Ns Inj) 1,000 mls @ 200 mls/hr OTHER .Q5H PRN PRN Reason: for dialyzer flush PRN Sodium Chloride (Ns Inj) 1,000 mls @ 0 mls/hr IV.CONT .Q0M PRN PRN Reason: hypotension / volume replace Insulin Human Regular (Novolin R Correctional Sugar Inj) 0 units SQ Q6HR [facility]; Protocol Last Admin: 07/15/18 13:45 Dose: Not Given Lactulose (Lactulose Liq) 30 ml PO BID [facility] Last Admin: 07/15/18 08:01 Dose: 30 ml Mannitol (Mannitol Inj) 12.5 gm IV.PUSH UNSCH PRN PRN Reason: hypotension / volume replace Nitroglycerin (Nitrostat Sl) 0.4 mg SL Q5M PRN PRN Reason: CHEST PAIN Ondansetron HCl (Zofran Inj) 4 mg IV.PUSH Q6H PRN PRN Reason: NAUSEA OR VOMITING Ondansetron HCl (Zofran Inj) 4 mg IV.PUSH UNSCH PRN PRN Reason: NAUSEA OR VOMITING Oxycodone HCl (Roxicodone) 5 mg PO Q4H PRN PRN Reason: Pain 1-5 Last Admin: 07/15/18 08:09 Dose: 5 mg Pharmacy Profile Note (Vancomycin Consult Pharmacy) 1 each OTHER PRN PRN PRN Reason: Pharmacy to dose Polyethylene Glycol (Miralax) 17 gm PO BID [facility] Last Admin: 07/15/18 08:01 Dose: 17 gm Senna/Docusate Sodium (Jud-Colace) 1 tab PO BID [facility] Last Admin: 07/15/18 08:01 Dose: 1 tab Sodium Chloride (Ns Flush) 2 ml IV.FLUSH UNSCH PRN PRN Reason: FLUSH AFTER USING IV ACCESS Sodium Chloride (Ns Flush) 5 ml IV.FLUSH PRN PRN PRN Reason: flush each lumen during HD Thiamine HCl (Vitamin B1) 100 mg PO DAILY [facility] Stop: 07/19/18 08:59 Exam Vital signs: Vital Signs 07/14/18 16:14 07/14/18 17:00 07/14/18 17:01 Temperature Pulse Rate 108 H 115 H 115 H Respiratory Rate 18 26 H 27 H Blood Pressure 133/97 H 141/109 H Pulse Oximetry 93 L 93 L 95 07/14/18 18:00 07/14/18 19:00 07/14/18 19:01 Temperature Pulse Rate 115 H 126 H 126 H Respiratory Rate 22 33 H 23 Blood Pressure 142/103 H 128/89 Pulse Oximetry 92 L 94 L 95 07/14/18 20:00 07/14/18 20:08 07/14/18 20:33 Temperature 100 F H Pulse Rate 121 H 121 H Respiratory Rate 23 26 H Blood Pressure 156/106 H 139/96 H Pulse Oximetry 97 96 98 07/14/18 21:00 07/14/18 21:23 07/14/18 22:00 Temperature Pulse Rate 117 H 118 H 117 H Respiratory Rate 31 H 20 24 Blood Pressure 139/93 H 136/101 H Pulse Oximetry 97 97 07/14/18 23:00 07/14/18 23:30 07/15/18 00:00 Temperature 99.6 F Pulse Rate 117 H 118 H 116 H Respiratory Rate 40 H 26 H 36 H Blood Pressure 134/102 H Pulse Oximetry 94 L 93 L 94 L 07/15/18 00:04 07/15/18 01:00 07/15/18 01:23 Temperature Pulse Rate 115 H 106 H 106 H Respiratory Rate 36 H 23 20 Blood Pressure 133/98 H 158/115 H 147/106 H Pulse Oximetry 97 92 L 93 L 07/15/18 02:00 07/15/18 03:00 07/15/18 04:00 Temperature Pulse Rate 105 H 110 H 103 H Respiratory Rate 21 31 H 16 Blood Pressure 124/91 H 149/97 H 144/102 H Pulse Oximetry 92 L 93 L 99 07/15/18 05:00 07/15/18 06:00 07/15/18 06:03 Temperature Pulse Rate 108 H 119 H 117 H Respiratory Rate 23 25 H 22 Blood Pressure 137/108 H Pulse Oximetry 95 94 L 07/15/18 06:05 07/15/18 06:33 07/15/18 07:00 Temperature Pulse Rate 113 H 108 H 111 H Respiratory Rate 10 L 21 23 Blood Pressure 130/100 H 139/103 H 134/101 H Pulse Oximetry 95 95 92 L 07/15/18 07:08 07/15/18 07:09 07/15/18 08:00 Temperature 99.1 F Pulse Rate 113 H 112 H 120 H Respiratory Rate 29 H 27 H 24 Blood Pressure 136/104 H 135/101 H Pulse Oximetry 96 97 97 07/15/18 08:01 07/15/18 08:57 07/15/18 09:00 Temperature Pulse Rate 120 H 122 H 119 H Respiratory Rate 23 22 18 Blood Pressure 151/109 H 134/101 H Pulse Oximetry 97 87 L 07/15/18 09:52 07/15/18 10:00 07/15/18 11:00 Temperature 99.2 F Pulse Rate 117 H 115 H 113 H Respiratory Rate 33 H 30 H 29 H Blood Pressure 145/104 H Pulse Oximetry 95 95 98 07/15/18 12:39 07/15/18 12:40 Temperature Pulse Rate Respiratory Rate 5 L 9 L Blood Pressure Pulse Oximetry Intake & Output 07/14/18 07/15/18 07/15/18 18:59 06:59 18:59 Intake Total 580 / 580 1361.2 / 1361.2 300 / 300 Output Total 4000 / 4000 50 / 50 100 / 100 Balance -3420 / -3420 1311.2 / 1311.2 200 / 200 Weight 59.5 kg Intake: IV 100 / 100 611.2 / 611.2 Maxipime Inj 1,000 MG In NS Inj 100 / 100 100 ML @ 200 mls/hr IV.SIG Q24H [facility] Rx#:[id number] MVI-12 Inj 10 ML Thiamine Inj 511.2 / 511.2 100 MG Folvite Inj 1 MG In NS Inj 500 ML @ 125 mls/hr IV.SIG Q24H [facility] Rx#:[id number] Vancomycin Inj 500 MG In NS Inj 100 / 100 100 ML @ 200 mls/hr IV.SIG ONCE ONE Rx#:[id number] Oral 480 / 480 750 / 750 300 / 300 Output: Urine 0 / 0 50 / 50 100 / 100 Hemodialysis Amount 4000 / 4000 Other: # Voids 2 Date of Last Bowel Movement 07/15/18 07/15/18 # Bowel Movements 1 1 Results - Lab Results 07/15/18 09:25 07/15/18 09:25 Most recent lab results ABG pH 7.49 (7.380-7.420) H 07/13/18 22:10 ABG pCO2 24 mmHg (38-42) L* 07/13/18 22:10 ABG pO2 69 mmHg (61-120) 07/13/18 22:10 ABG HCO3 18 mmol/L (22-26) L 07/13/18 22:10 Calcium 8.3 mg/dL (8.5-10.1) L 07/15/18 09:25 Phosphorus 2.7 mg/dL (2.5-4.9) 07/15/18 09:25 Magnesium 2.1 mg/dL (1.5-2.5) 07/15/18 09:25 Assessment and Plan - Assessment (1) Acute kidney injury Code(s): N17.9 - Acute kidney failure, unspecified Status: Acute Plan: Patient seen and examined, agree with above. Patient has TED and has been on HD for 6-8 weeks. Was at [facility]. Urine out put is low. Continue HD for now TTS. Watch for renal recovery, ID to follow for antibiotics. (2) Endocarditis Code(s): I38 - Endocarditis, valve unspecified Status: Acute (3) Hyperkalemia Code(s): E87.5 - Hyperkalemia Status: Acute
--- NOTE | 2018-07-14 10:26 | P.PCN ---
Date of procedure: 07/14/18 Pre-op diagnosis: Moderate ascites, A Post-op diagnosis: same Procedure: Consent was obtained from patient prior to the procedure. Indications, risks, and benefits were explained at length. PROCEDURE SUMMARY: A time-out was performed. My hands were washed immediately prior to the procedure. I wore a surgical cap, mask with protective eyewear, sterile gown and sterile gloves throughout the procedure. The area was cleansed and draped in usual sterile fashion using chlorhexidine scrub. Anesthesia was achieved with 1% lidocaine. The LLQ of the abdomen was prepped and draped in a sterile fashion using chlorhexidine scrub. 1% lidocaine was used to numb the skin, soft tissue and peritoneum. The paracentesis catheter was inserted and advanced with negative pressure until straw colored fluid was aspirated. Approximately 20 mL of ascitic fluid was collected and sent for laboratory analysis. As the patient was not coperatve, the catheter slipped and I was not able to drain any more fluid than initial. The catheter was removed and no leaking was noted. A bandaid was placed over the puncture wound. Estimated blood loss was 1ml. Anesthesia: local Surgeon: Rodriguez Najera Estimated blood loss (mL): 1 Pathology: other (fluid studies sent) Condition: critical Disposition: ICU
[2018-07-14] MEDS ORDERED: HYDROmorphone PF Inj 2 MG/ML Vial IV.PUSH ONE (10:30)
--- NOTE | 2018-07-14 10:46 | P.CONPAL ---
Consult Service: Palliative Care Requesting Physician: Agustin Hussein Reason for Consult: a. To assist with evaluation and management of symptoms including: pain. b. To assist medical decision maker(s) with: better understanding of current medical conditions; weighing benefits/burdens of medical treatment options; making medical treatment decisions. Primary Care Provider: UNKNOWN History of Present Illness History of Present Illness: Miss Jamil is a 28 year old female with past medical history of IV drug abuse, asthma, endocarditis, end stage renal disease on hemodialysis (T, Th, Wed) for the past few months and cholecystitis. Previously admitted to [facility] in May 2018 for spetic emboli and endocarditis, left AMA. She was admitted to [facility] on 07/13/18 though left AMA. Patient presented to [facility] emergency department on 07/13/18 with fever. Initial evaluation revealed: * VS; temp 100.1, pulse 133, respiratory rate 28, blood pressure 146/107, oxygen saturation 96% * WBC 11.6, hemoglobin 8.5, hematocrit 27, platelet count 317, neutrophils 69.5% * PT 17.1, INR 1.7, APTT 27.9 * Sodium 131, potassium 5.9, chloride 101, carbon dioxide 15.6, BUN 50, creatinine 5.27, GFR 10, glucose 106 * Total bilirubin 0.5, AST 13, ALT 8, alkaline phosphatase 112 * Total creatine kinase 12, troponin 0 0.02 * Total protein 7.6, albumin 2.0 * Quantitative beta hCG 1 * Lactic acid 3.1 * Chest x-ray-new bilateral airspace disease right greater than left, possible pneumonia * CT abdomen/pelvis-bilateral patchy airspace disease, minimal pleural fluid, moderate diffuse ascites and anasarca, nonobstructive bowel gas pattern, cardiomegaly. * EKG -sinus tachycardia, possible anterior IN. Patient was admitted with fever, endocarditis. Nephrology was consulted with plans to continue hemodialysis. Bedside ultrasound revealed large tricuspid vegetation with moderate to severe tricuspid regurgitation, moderate ascites. Dr. Najera performed bedside paracentesis. Notes indicate patient is not a candidate for valve replacement due to noncompliance and leaving AMA multiple times. On Cefepime, ID consult pending. Post dialysis today per pt report. Palliative care was consulted to assist with goals of medical treatment. Patient seen and examined in ICU. No family at bedside. LUIGI Okeefe also present. Patient is awake and alert. She answered questions openly. She verbalizes she left [facility] as staff were "being mean to her, talking about her being a druggie outside of her room and told her people don't you can't have medication for pain." She left AMA because of staff, being afraid and in pain. She tells me the staff here have been great, she's feels comfortable and safe here. She tells me she has not used drugs in 3 months, toxicology screen pending. She desires continued aggressive care. She does not want to . She thanks me repeatedly for time spent. Will complete written advanced directives during next visit. She verbalizes she wants her mother to serve as HCS and sister, Aline as alternate. Function/Cognitive Trajectory: Patient has had increased weakness, shortness of breath, fatigue over the past 3 months. She is staying with her mother. Review of Systems Constitutional: Reports chills, Reports fatigue, Reports fever(s), Reports lack of energy, Reports weakness Ears, Nose, Mouth, and Throat: Reports neck pain Cardiovascular: Reports chest pain, Reports generalized swelling, Reports leg swelling, Reports shortness of breath, Reports shortness of breath with activity Respiratory: Reports cough, Reports shortness of breath, Reports shortness of breath with activity Gastrointestinal: Reports heartburn Musculoskeletal: Reports back pain, Reports muscle weakness, Reports neck pain Endocrine: Reports cold intolerance, Reports rapid, pounding, or irregular heartbeat Hematologic/Lymphatic: Reports easy bruising PMFSH - History History Provided By: Patient - Medical History Medical History: Medical History (Last Updated 07/14/18 @ 17:19 by Jo Ann Garcia) Cholecystitis (Acute) Asthma (Acute) H/O tooth extraction Endocarditis Hemodialysis patient - Surgical History Surgical History: Surgical History (Last Updated 07/14/18 @ 17:19 by Jo Ann Garcia) H/O tooth extraction History of dental surgery - Family History Family History: Family History (Last Reviewed 05/05/18 @ 13:03 by Paty Trujillo MD) Father Family history of cancer Mother Family history of acute myocardial infarction - Social History I have reviewed the patient's Social History: Yes - Tobacco History Second Hand Smoke Exposure: No Smoking Status: Former smoker (recently has no desire to smoke) Tobacco Type: Cigarettes - Alcohol History How Often Do You Have a Drink Containing Alcohol: Never - Substance Use History Substance History: Active Abuse, Past History - Substance Use Type Heroin Status: Active Route Used: Intravenously Reason for Use: Get High - Travel History Recent Travel in the [place] Within the Last 8 Weeks: No Recent Travel Out of the Country Within the Last 8 Weeks: No - Immunization History Tetanus Immunization: <5 Years Hx Influenza Vaccine This Season: No Medications and Allergies Active Medications: Active Medications Acetaminophen (Tylenol) 650 mg PO Q6H PRN PRN Reason: TEMPERATURE > 101 F Acetaminophen (Tylenol) 650 mg PO UNSCH PRN PRN Reason: SEE LABEL COMMENTS Albuterol (Duoneb Neb (Prn)) 1 ampul NEB Q2HR NEB PRN PRN Reason: WHEEZING Bisacodyl (Dulcolax Supp) 10 mg RECTAL DAILY PRN PRN Reason: if no BM in last 24h Chlorhexidine Gluconate (Chlorhexidine 2% Cloth) 3 pack TOPICAL DAILY@0400 [facility] Stop: 07/19/18 03:59 Last Admin: 07/14/18 03:30 Dose: 3 pack Chlorhexidine Gluconate (Chlorhexidine 2% Cloth) 3 pack TOPICAL DAILY@0400 PRN PRN Reason: Extra cloth needed Stop: 07/19/18 03:59 Clonidine HCl (Catapres) 0.1 mg PO UNSCH PRN PRN Reason: SEE LABEL COMMENTS Dextrose (D50w Syringe) 50 ml IV.PUSH UNSCH PRN PRN Reason: PER HYPOGLYCEMIA PROTOCOL Diphenhydramine HCl (Benadryl) 25 mg PO UNSCH PRN PRN Reason: SEE LABEL COMMENTS Epoetin Carlos Alberto (Epogen Inj) 10,000 unit IV.PUSH UNSCH PRN PRN Reason: SEE LABEL COMMENTS Famotidine (Pepcid) 10 mg PO BID [facility] Last Admin: 07/13/18 21:28 Dose: 10 mg Folic Acid (Folic Acid) 1 mg PO DAILY [facility] Stop: 07/19/18 08:59 Gelatin (Gelfoam 12 Mm/7 Mm Topical) 1 foam TOPICAL PRN PRN PRN Reason: help stop bleeding from site Gentamicin Sulfate (Gentamicin Inj) 20 mg OTHER WITH DIALYSIS PRN PRN Reason: Dwell Gentamycin Lock Glucagon (Glucagon Inj) 1 mg OTHER UNSCH PRN PRN Reason: FOR HYPOGLYCEMIA PROTOCOL Heparin Sodium (Porcine) (Heparin Inj) 5,000 units SQ Q8HR [facility] Last Admin: 07/14/18 05:21 Dose: 5,000 units Heparin Sodium (Porcine) (Heparin Inj) 1,000 units OTHER WITH DIALYSIS PRN PRN Reason: Dwell Heparin to Fill Catheter Heparin Sodium (Porcine) (Heparin Inj) 8,000 units OTHER WITH DIALYSIS PRN PRN Reason: for machine prime Hydromorphone HCl (Dilaudid Pf Inj) 0.25 mg IV.PUSH Q1H PRN PRN Reason: PAIN 8-10 OR NOT TAKING PO Last Admin: 07/14/18 05:21 Dose: 0.25 mg Multivitamins 10 ml/ Thiamine HCl 100 mg/ Folic Acid 1 mg/Sodium Chloride 511.2 mls @ 125 mls/hr IV.SIG Q24H [facility] Stop: 07/16/18 02:06 Last Admin: 07/14/18 03:28 Dose: Not Given Cefepime HCl 1,000 mg/ Sodium (Chloride) 100 mls @ 200 mls/hr IV.SIG Q24H SERGE Albumin Human (Flexbumin 25% Inj) 100 mls @ 60 mls/hr IV.SIG WITH DIALYSIS PRN PRN Reason: hypotension / volume replace Sodium Chloride (Ns Inj) 1,000 mls @ 0 mls/hr OTHER .Q0M PRN PRN Reason: for prime and rinse back Sodium Chloride (Ns Inj) 1,000 mls @ 200 mls/hr OTHER .Q5H PRN PRN Reason: for dialyzer flush PRN Sodium Chloride (Ns Inj) 1,000 mls @ 0 mls/hr IV.CONT .Q0M PRN PRN Reason: hypotension / volume replace Vancomycin HCl 500 mg/ Sodium (Chloride) 100 mls @ 200 mls/hr IV.SIG ONCE ONE Stop: 07/14/18 10:29 Insulin Human Regular (Novolin R Correctional Sugar Inj) 0 units SQ Q6HR SERGE; Protocol Last Admin: 07/14/18 05:46 Dose: Not Given Lactulose (Lactulose Liq) 30 ml PO BID [facility] Last Admin: 07/13/18 21:28 Dose: 30 ml Mannitol (Mannitol Inj) 12.5 gm IV.PUSH UNSCH PRN PRN Reason: hypotension / volume replace Nitroglycerin (Nitrostat Sl) 0.4 mg SL Q5M PRN PRN Reason: CHEST PAIN Ondansetron HCl (Zofran Inj) 4 mg IV.PUSH Q6H PRN PRN Reason: NAUSEA OR VOMITING Ondansetron HCl (Zofran Inj) 4 mg IV.PUSH UNSCH PRN PRN Reason: NAUSEA OR VOMITING Oxycodone HCl (Roxicodone) 5 mg PO Q4H PRN PRN Reason: Pain 1-5 Pharmacy Profile Note (Vancomycin Consult Pharmacy) 1 each OTHER PRN PRN PRN Reason: Pharmacy to dose Polyethylene Glycol (Miralax) 17 gm PO BID [facility] Last Admin: 07/13/18 22:09 Dose: Not Given Senna/Docusate Sodium (Jud-Colace) 1 tab PO BID [facility] Last Admin: 07/13/18 22:09 Dose: Not Given Sodium Chloride (Ns Flush) 2 ml IV.FLUSH UNSCH PRN PRN Reason: FLUSH AFTER USING IV ACCESS Sodium Chloride (Ns Flush) 5 ml IV.FLUSH PRN PRN PRN Reason: flush each lumen during HD Thiamine HCl (Vitamin B1) 100 mg PO DAILY [facility] Stop: 07/19/18 08:59 Allergies Allergy/AdvReac Type Severity Reaction Status Date / Time sweet potato Allergy Severe Hives Verified 05/29/18 19:49 amoxicillin Allergy Intermediate SWELLING, Verified 05/29/18 19:49 HIVES penicillin G Allergy Intermediate Hives Verified 05/29/18 19:49 Home Medications Medication Instructions Recorded Confirmed Type No Known Home Medications 05/04/18 07/13/18 History Advance Directives Living Will: No Healthcare Surrogate: No Power of Panel Raiser Operator: No Today's verbally stated goals: Desires FULL CODE including continued aggressive care including valve replacement if able. Ethical and Legal Issues: Patient is capacitated to make her own health care decisions. No written advance directives. Father . Single. 2 minor sons ages 3 and 4, she does not have custody. According to [place] statutes, health care proxy decision making falls to her mother. Father is . Physical Exam Vital Signs: Vital Signs - 24 hr 07/13/18 19:51 07/13/18 19:53 07/13/18 20:11 Temperature 100.1 F H 99.7 F H Pulse Rate 133 H 126 H Respiratory Rate 28 H 18 Blood Pressure 146/107 H 150/91 H Pulse Oximetry 96 97 97 07/13/18 20:49 07/13/18 20:53 07/13/18 21:11 Temperature 100.4 F H 100.7 F H Pulse Rate 120 H 122 H Respiratory Rate 18 20 Blood Pressure 150/91 H 150/91 H Pulse Oximetry 97 95 95 07/13/18 22:30 07/13/18 23:00 07/14/18 00:00 Temperature 99.1 F 98.9 F Pulse Rate 118 H 116 H 100 H Respiratory Rate 22 20 Blood Pressure 138/97 H 137/100 H Pulse Oximetry 94 L 95 07/14/18 01:00 07/14/18 04:00 07/14/18 09:01 Temperature 98.7 F Pulse Rate 113 H Respiratory Rate 20 Blood Pressure 138/105 H Pulse Oximetry 95 94 L 95 07/14/18 09:04 Temperature Pulse Rate Respiratory Rate Blood Pressure Pulse Oximetry 95 I&O: Intake & Output 07/12/18 07/13/18 07/14/18 07/15/18 06:59 06:59 06:59 06:59 Intake Total 1350 / 1350 Output Total Balance 1335 / 1335 Weight 60 kg Physical Exam: CONSTITUTIONAL/GENERAL: This is a critically ill patient. TUBES/LINES/DRAINS: NC, Right IJ vas-cath. SKIN: Pale. Ecchymoses on upper extremities. Wound reported on coccyx 1x1cm, not visualized by me. No wounds seen anteriorly. Skin temperature appropriate. Not diaphoretic. HEAD: Atraumatic. Normocephalic. EYES: Pupils equal and round and reactive. Extraocular motions intact. No scleral icterus. No injection or drainage. Fundi not examined. ENT: Hearing grossly normal. Nose without bleeding or purulent drainage. Throat without visible erythema, exudates, masses, or lesions. NECK: Trachea midline. CARDIOVASCULAR: tachycardic, systolic murmur, regular rhythm. + JVD. Peripheral pulses symmetric. RESPIRATORY/CHEST: Symmetric, unlabored respirations. Clear to auscultation. Breath sounds equal bilaterally. No wheezes, rales, or rhonchi. GASTROINTESTINAL: Abdomen soft, mildly tender, distended. + ascites. No guarding. Bowel sounds present. GENITOURINARY: Without palpable bladder distension. MUSCULOSKELETAL: Extremities with 2+ pitting edema. LYMPHATICS: No palpable cervical or supraclavicular adenopathy. NEUROLOGICAL: Awake and alert. Motor and sensory grossly within normal limits. Follows commands. Cognitively sharp. Moves all extremities. PSYCHIATRIC: no hallucinations or other psychotic thought process. Diagnostic Tests Laboratory: Laboratory Results - last 72 hr 07/13/18 07/13/18 07/13/18 20:22 20:22 20:22 WBC 11.6 H RBC 3.01 L Hgb 8.5 L Hct 27.0 L MCV 90.0 MCH 28.2 MCHC 31.4 L RDW 18.3 H Plt Count 317 MPV 8.0 Prelim Diff (Auto) Slide review pending Neut % (Auto) 69.5 Lymph % (Auto) 17.3 Ocean % (Auto) 11.2 H Eos % (Auto) 0.4 Baso % (Auto) 1.6 Neut # (Auto) 8.1 H Lymph # (Auto) 2.0 Ocean # (Auto) 1.3 H Eos # (Auto) 0.0 Baso # (Auto) 0.2 WBC Differential . Diff Scan Auto diff confirmed Differential Comment . Platelet Estimate Normal Platelet Morphology Normal PT 17.1 H INR 1.7 APTT 27.9 Puncture Site Patient Temperature O2 Saturation ABG pH ABG pCO2 ABG pO2 ABG HCO3 ABG O2 Content ABG Base Excess ABG Methemoglobin Hemoglobin Carboxyhemoglobin O2 Delivery Device Inspired O2 Critical Value Sodium 131 L Potassium 5.9 H Chloride 101 Carbon Dioxide 15.6 L Anion Gap 14 BUN 50 H Creatinine 5.27 H Estimated GFR 10 L POC Glucose Random Glucose 106 Osmolality Lactic Acid Calcium 8.3 L Phosphorus Magnesium 1.9 Total Bilirubin 0.5 AST 13 L ALT 8 L Alkaline Phosphatase 112 Total Creatine Kinase 12 L Troponin I 0.02 Total Protein 7.6 Albumin 2.0 L Prealbumin Lipase 72 L Beta HCG, Quant 1 Urine Color Urine Clarity Urine pH Ur Specific [place] Urine Protein Urine Glucose (UA) Urine Ketones Urine Occult Blood Urine Nitrate Urine Bilirubin Urine Urobilinogen Ur Leukocyte Esterase Urine RBC Urine WBC Ur Squamous Epith Cells Urine Bacteria Urine Mucus Micro UA Comment Ur Microscopic Review Urine Culture Comments Urine Eosinophils Urine Osmolality Ur Random Creatinine Ur Random Sodium Nasal Screen MRSA (PCR) Random Vancomycin 14.8 07/13/18 07/13/18 07/13/18 20:22 20:22 20:22 WBC RBC Hgb Hct MCV MCH MCHC RDW Plt Count MPV Prelim Diff (Auto) Neut % (Auto) Lymph % (Auto) Ocean % (Auto) Eos % (Auto) Baso % (Auto) Neut # (Auto) Lymph # (Auto) Ocean # (Auto) Eos # (Auto) Baso # (Auto) WBC Differential Diff Scan Differential Comment Platelet Estimate Platelet Morphology PT INR APTT Puncture Site Patient Temperature O2 Saturation ABG pH ABG pCO2 ABG pO2 ABG HCO3 ABG O2 Content ABG Base Excess ABG Methemoglobin Hemoglobin Carboxyhemoglobin O2 Delivery Device Inspired O2 Critical Value Sodium Potassium Chloride Carbon Dioxide Anion Gap BUN Creatinine Estimated GFR POC Glucose Random Glucose Osmolality Lactic Acid 3.1 H Calcium Phosphorus 1.7 L Magnesium Total Bilirubin AST ALT Alkaline Phosphatase Total Creatine Kinase Troponin I Total Protein Albumin Prealbumin 14 L Lipase Beta HCG, Quant 1 Urine Color Urine Clarity Urine pH Ur Specific [place] Urine Protein Urine Glucose (UA) Urine Ketones Urine Occult Blood Urine Nitrate Urine Bilirubin Urine Urobilinogen Ur Leukocyte Esterase Urine RBC Urine WBC Ur Squamous Epith Cells Urine Bacteria Urine Mucus Micro UA Comment Ur Microscopic Review Urine Culture Comments Urine Eosinophils Urine Osmolality Ur Random Creatinine Ur Random Sodium Nasal Screen MRSA (PCR) Random Vancomycin 07/13/18 07/13/18 07/13/18 20:22 22:10 22:30 WBC RBC Hgb Hct MCV MCH MCHC RDW Plt Count MPV Prelim Diff (Auto) Neut % (Auto) Lymph % (Auto) Ocean % (Auto) Eos % (Auto) Baso % (Auto) Neut # (Auto) Lymph # (Auto) Ocean # (Auto) Eos # (Auto) Baso # (Auto) WBC Differential Diff Scan Differential Comment Platelet Estimate Platelet Morphology PT INR APTT Puncture Site Left brachial Patient Temperature 98.6 O2 Saturation 92 ABG pH 7.49 H ABG pCO2 24 L* ABG pO2 69 ABG HCO3 18 L ABG O2 Content 10.2 L ABG Base Excess -4.8 L ABG Methemoglobin 0.6 Hemoglobin 7.8 L* Carboxyhemoglobin 1.9 O2 Delivery Device Room air Inspired O2 21 Critical Value Yes Sodium Potassium Chloride Carbon Dioxide Anion Gap BUN Creatinine Estimated GFR POC Glucose Random Glucose Osmolality 294 Lactic Acid Calcium Phosphorus Magnesium Total Bilirubin AST ALT Alkaline Phosphatase Total Creatine Kinase Troponin I Total Protein Albumin Prealbumin Lipase Beta HCG, Quant Urine Color Urine Clarity Urine pH Ur Specific [place] Urine Protein Urine Glucose (UA) Urine Ketones Urine Occult Blood Urine Nitrate Urine Bilirubin Urine Urobilinogen Ur Leukocyte Esterase Urine RBC Urine WBC Ur Squamous Epith Cells Urine Bacteria Urine Mucus Micro UA Comment Ur Microscopic Review Urine Culture Comments Urine Eosinophils Urine Osmolality Ur Random Creatinine Ur Random Sodium Nasal Screen MRSA (PCR) Not detected Random Vancomycin 07/13/18 07/14/18 07/14/18 23:57 00:42 02:52 WBC 13.3 H RBC 2.84 L Hgb 8.0 L Hct 25.8 L MCV 90.7 MCH 28.3 MCHC 31.2 L RDW 19.0 H Plt Count 292 MPV 8.2 Prelim Diff (Auto) Neut % (Auto) 61.6 Lymph % (Auto) 25.1 Ocean % (Auto) 11.5 H Eos % (Auto) 0.6 Baso % (Auto) 1.2 Neut # (Auto) 8.2 H Lymph # (Auto) 3.3 Ocean # (Auto) 1.5 H Eos # (Auto) 0.1 Baso # (Auto) 0.2 WBC Differential . Diff Scan Differential Comment Auto diff final Platelet Estimate Platelet Morphology PT INR APTT Puncture Site Patient Temperature O2 Saturation ABG pH ABG pCO2 ABG pO2 ABG HCO3 ABG O2 Content ABG Base Excess ABG Methemoglobin Hemoglobin Carboxyhemoglobin O2 Delivery Device Inspired O2 Critical Value Sodium Potassium Chloride Carbon Dioxide Anion Gap BUN Creatinine Estimated GFR POC Glucose 95 Random Glucose Osmolality Lactic Acid 1.7 Calcium Phosphorus Magnesium Total Bilirubin AST ALT Alkaline Phosphatase Total Creatine Kinase Troponin I Total Protein Albumin Prealbumin Lipase Beta HCG, Quant Urine Color Urine Clarity Urine pH Ur Specific [place] Urine Protein Urine Glucose (UA) Urine Ketones Urine Occult Blood Urine Nitrate Urine Bilirubin Urine Urobilinogen Ur Leukocyte Esterase Urine RBC Urine WBC Ur Squamous Epith Cells Urine Bacteria Urine Mucus Micro UA Comment Ur Microscopic Review Urine Culture Comments Urine Eosinophils Urine Osmolality Ur Random Creatinine Ur Random Sodium Nasal Screen MRSA (PCR) Random Vancomycin 07/14/18 07/14/18 07/14/18 02:52 02:52 05:15 WBC RBC Hgb Hct MCV MCH MCHC RDW Plt Count MPV Prelim Diff (Auto) Neut % (Auto) Lymph % (Auto) Ocean % (Auto) Eos % (Auto) Baso % (Auto) Neut # (Auto) Lymph # (Auto) Ocean # (Auto) Eos # (Auto) Baso # (Auto) WBC Differential Diff Scan Differential Comment Platelet Estimate Platelet Morphology PT 17.0 H INR 1.7 APTT Puncture Site Patient Temperature O2 Saturation ABG pH ABG pCO2 ABG pO2 ABG HCO3 ABG O2 Content ABG Base Excess ABG Methemoglobin Hemoglobin Carboxyhemoglobin O2 Delivery Device Inspired O2 Critical Value Sodium 135 L Potassium 5.7 H Chloride 103 Carbon Dioxide 18.4 L Anion Gap 14 BUN 52 H Creatinine 5.26 H Estimated GFR 10 L POC Glucose Random Glucose 90 Osmolality Lactic Acid Calcium 8.0 L Phosphorus 2.3 L Magnesium 2.0 Total Bilirubin 0.6 AST 10 L ALT Less than 6 L Alkaline Phosphatase 97 Total Creatine Kinase Troponin I Total Protein 7.1 Albumin 1.8 L Prealbumin Lipase Beta HCG, Quant Urine Color Sarah Urine Clarity Cloudy H Urine pH 7.0 Ur Specific [place] 1.020 Urine Protein 500 or greater Urine Glucose (UA) 50 Urine Ketones Negative Urine Occult Blood Moderate H Urine Nitrate Negative Urine Bilirubin Negative Urine Urobilinogen Less than 2 Ur Leukocyte Esterase Moderate H Urine RBC 85 H Urine WBC Ur Squamous Epith Cells 53 Urine Bacteria Few H Urine Mucus Few H Micro UA Comment Culture indicated Ur Microscopic Review Not Reportable Urine Culture Comments Culture indicated Urine Eosinophils Urine Osmolality Ur Random Creatinine Ur Random Sodium Nasal Screen MRSA (PCR) Random Vancomycin 07/14/18 07/14/18 07/14/18 05:15 05:15 05:15 WBC RBC Hgb Hct MCV MCH MCHC RDW Plt Count MPV Prelim Diff (Auto) Neut % (Auto) Lymph % (Auto) Ocean % (Auto) Eos % (Auto) Baso % (Auto) Neut # (Auto) Lymph # (Auto) Ocean # (Auto) Eos # (Auto) Baso # (Auto) WBC Differential Diff Scan Differential Comment Platelet Estimate Platelet Morphology PT INR APTT Puncture Site Patient Temperature O2 Saturation ABG pH ABG pCO2 ABG pO2 ABG HCO3 ABG O2 Content ABG Base Excess ABG Methemoglobin Hemoglobin Carboxyhemoglobin O2 Delivery Device Inspired O2 Critical Value Sodium Potassium Chloride Carbon Dioxide Anion Gap BUN Creatinine Estimated GFR POC Glucose Random Glucose Osmolality Lactic Acid Calcium Phosphorus Magnesium Total Bilirubin AST ALT Alkaline Phosphatase Total Creatine Kinase Troponin I Total Protein Albumin Prealbumin Lipase Beta HCG, Quant Urine Color Urine Clarity Urine pH Ur Specific [place] Urine Protein Urine Glucose (UA) Urine Ketones Urine Occult Blood Urine Nitrate Urine Bilirubin Urine Urobilinogen Ur Leukocyte Esterase Urine RBC Urine WBC Ur Squamous Epith Cells Urine Bacteria Urine Mucus Micro UA Comment Ur Microscopic Review Urine Culture Comments Urine Eosinophils None seen Urine Osmolality Ur Random Creatinine 58 Ur Random Sodium 51 Cancelled Nasal Screen MRSA (PCR) Random Vancomycin 07/14/18 05:15 WBC RBC Hgb Hct MCV MCH MCHC RDW Plt Count MPV Prelim Diff (Auto) Neut % (Auto) Lymph % (Auto) Ocean % (Auto) Eos % (Auto) Baso % (Auto) Neut # (Auto) Lymph # (Auto) Ocean # (Auto) Eos # (Auto) Baso # (Auto) WBC Differential Diff Scan Differential Comment Platelet Estimate Platelet Morphology PT INR APTT Puncture Site Patient Temperature O2 Saturation ABG pH ABG pCO2 ABG pO2 ABG HCO3 ABG O2 Content ABG Base Excess ABG Methemoglobin Hemoglobin Carboxyhemoglobin O2 Delivery Device Inspired O2 Critical Value Sodium Potassium Chloride Carbon Dioxide Anion Gap BUN Creatinine Estimated GFR POC Glucose Random Glucose Osmolality Lactic Acid Calcium Phosphorus Magnesium Total Bilirubin AST ALT Alkaline Phosphatase Total Creatine Kinase Troponin I Total Protein Albumin Prealbumin Lipase Beta HCG, Quant Urine Color Urine Clarity Urine pH Ur Specific [place] Urine Protein Urine Glucose (UA) Urine Ketones Urine Occult Blood Urine Nitrate Urine Bilirubin Urine Urobilinogen Ur Leukocyte Esterase Urine RBC Urine WBC Ur Squamous Epith Cells Urine Bacteria Urine Mucus Micro UA Comment Ur Microscopic Review Urine Culture Comments Urine Eosinophils Urine Osmolality 291 L Ur Random Creatinine Ur Random Sodium Nasal Screen MRSA (PCR) Random Vancomycin Result Diagrams: 07/14/18 02:52 07/14/18 02:52 Microbiology: Microbiology 07/13/18 20:53 Aerobic Blood Culture - Preliminary Blood - Peripheral No growth in 1 day Anaerobic Blood Culture - Preliminary No growth in 1 day 07/13/18 20:49 Aerobic Blood Culture - Preliminary Blood - Peripheral No growth in 1 day Anaerobic Blood Culture - Preliminary No growth in 1 day Imaging: Chest X-Ray 07/13/18 20:06 CONCLUSION: Mid inspiratory exam with new bilateral airspace disease right greater than left. This could represent pneumonia. Abdomen/Pelvis CT 07/13/18 20:07 CONCLUSION: 1. Bibasilar patchy airspace disease and minimal pleural fluid. 2. Moderate amount of diffuse ascites as well as anasarca. 3. Nonobstructive bowel gas pattern with poor delineation of the bowel secondary to anasarca, lack of intravenous and oral contrast. 4. Cardiomegaly. Procedures: * 07/14/18 - paracentesis * right IJ vas-cath placed at on 07/12/18 Patient/Family Conference Present at Family Conference: Met with patient at bedside. Also present LUIGI Okeefe. Family Conference Time: 60 Family Conference Location: Bedside Issues Discussed: * Palliative care role, purpose, approach * Additional medical, psychosocial, and spiritual history * Patients general health, functional status, and cognitive changes in the months leading up to the current hospitalization * Patient/family understanding of the current medical problems * Patient/family understanding of prognosis * Patients goals of care as best understood from advance directives and/or conversations and/or values * Current medical treatment options and benefits/burdens of those options * Likely scenarios comparing ongoing aggressive care with a transition to comfort measures only * Questions answered to the best of my ability * Palliative care contact information provided Desires continued aggressive care including FULL CODE. Spoke with her mother, Heather who supports her daughters desire for aggressive care, she understands patient could from endocarditis, renal failure, etc. She appreciates call. Assessment and Plan - Disease Oriented Problem List (1) Sepsis (2) IV drug abuse (3) Endocarditis (4) End-stage renal disease (ESRD) (5) Hyperkalemia (6) Acidosis, lactic - Symptom Scale (1) Pain 0-10 Scale: 6 (2) Shortness of breath 0-10 Scale: 1 Pertinent Non-Medical Issues: Psychosocial: Single. 2 sons, ages 3 & 4. Supported by her mother and step- father (she does not have a great relationship with him). Has 3 sisters. Spiritual:None. Legal: Patient is capacitated to make her own health care decisions. No written advance directives. Single. Father . 2 sons, ages 3 & 4. According to [place] statutes, health care proxy decision making falls to a parent. Ethical issues impacting care: No known concerns at this time. Important Contacts: * Heather Hardy, mother/ HCP: [phone] Prognosis: Per cotton picker Dr. Hussein on 07/14/18: "28-year-old female with infective tricuspid valve endocarditis and multiorgan dysfunction secondary to endocarditis as well as mixed septic and cardiogenic shock. We are obtaining records from outside hospital. It is unclear what her clinical course has been , but she does clearly appear to be in acute renal failure as well as volume overload, heart failure secondary to valvulopathy, and septic shock. I think her dialysis catheter should be exchanged, but in the interest of taking care of her medical needs acutely, we will keep this line for now. I have had a long discussion with the patient which I explained that every time she leaves AGAINST MEDICAL ADVICE and returns she is sick her with new and worsening shock and worsening organ failure. In particular, her readmission today versus last admission in May she is far more critically ill and more deconditioned. I explained that I am very worried that if she leaves AGAINST MEDICAL ADVICE again , she will likely of this illness. I have consulted palliative care to ask their assistance in discussing with the patient and her overall goals of care, particularly if she continues to leave AGAINST MEDICAL ADVICE. For now she is very critically ill with multiorgan failure." Code Status: Full Code Plan: * Patient is currently capacitated to make her own health care decisions. No written advance directives. Single. Father . 2 sons, ages 3 & 4, she does not have custody. According to [place] statutes, health care proxy decision making falls to a parent. * FULL CODE * Goals: She desires continued aggressive care. She does not want to . She thanks me repeatedly for time spent. * Will ask Radha Seay LCSW to complete written advanced directives during next visit. She verbalizes she wants her mother to serve as HCS and sister, Aline as alternate. * SYMPTOMS: Pain: reports pain in chest, back, legs and neck. Has oxycodone 5mg PO every 4 hours PRN 1-5, none given and hydromorphone 0.25mg PRN every 1 hours PRN pain 8-10, one dose given with reported relief of pain. No new medication recommendations at this time. Shortness of breath: due to endocarditis, asthma. Denies while in bed, SOB reported with minimal activity. * Palliative care number provided. * Palliative care will continue to follow to assist with symptom management and further clarification of medical treatment goals. . Appreciation Thank you for the opportunity to participate in the care of Sarah Jamil. Attestation Attestation: To help prompt me to consider important information that might be impacting today's encounter and assessment, information from prior notes written by myself or my colleagues may have been "brought forward" into today's note. My signature on this note, however, is an attestation that I personally performed the exam, history, and/or decision-making noted today, and, unless otherwise indicated, the interactions with patient, family, and staff as well as the review of records all occurred today. I also attest that the listed assessment and stated plan reflect my best clinical judgment today based on the combination of historical information, prior notes, and today's exam/ interactions. When time spent is documented, it refers only to time spent today by the signer, or if indicated, combined time spent today by collaborating physician/nurse practitioner.
[2018-07-14] MEDS: Famotidine 20 MG Tablet PO SCH ×2 (12:46→20:00)
[2018-07-14] MEDS: Senna/Docusate Sodium 8.6/50 MG Tablet PO SCH ×2 (12:46→20:00)
[2018-07-14] MEDS: Polyethylene Glycol 3350 17 GM Packet PO SCH ×2 (12:46→20:00)
[2018-07-14 13:01] LABS: Hepatitits B Surface Antigen Nonreactive (Nonreactive)
[2018-07-14 13:11] LABS: Hepatitis A IgM Antibody Nonreactive (Nonreactive)
[2018-07-14 15:11] LABS: Basophils,Peritoneal Fluid 8 %; Neutrophils,Peritoneal Fluid 23 %
[2018-07-14 15:13] LABS: RBC,Peritoneal Fluid 1621 /mm3 (0-0)
[2018-07-14 16:14] LABS: Total Protein,Peritoneal Fluid 3.8 gm/dL
--- NOTE | 2018-07-14 18:55 | ECG ---
Date Performed: 07/13/2018 Time Performed: 20:18:14 PTAGE: 28 years EKG: SINUS TACHYCARDIA POSSIBLE ANTERIOR MYOCARDIAL INFARCTION ABNORMAL ECG PREVIOUS TRACING : 07/08/2006 17.39 Compared to previous tracing, sinus tachycardia is new DOCTOR: Nelson Manriquez Interpretating Date/Time 07/14/2018 18:50:18
[2018-07-14 22:04] LABS: Amphetamine Urine With Conf Neg (Neg); Cocaine Urine With Conf Neg (Neg)
[2018-07-14 22:13] LABS: Benzodiazepine Urine With Conf Pos (Neg)
[2018-07-14 22:14] LABS: Cannabinoid Urine With Conf Neg (Neg); Opiates Urine With Conf Pos (Neg)
[2018-07-15] MEDS: Insulin NovoLIN Regular Correctional Sugar Inj SQ SCH ×4 (01:24→18:34)
[2018-07-15] MEDS: HYDROmorphone PF Inj 2 MG/ML Vial IV.PUSH PRN ×2 (02:43→06:48)
[2018-07-15] MEDS: Chlorhexidine Gluconate 2% 1 Pack (2 Cloths) TOPICAL SCH (04:03)
--- NOTE | 2018-07-15 04:11 | XR ---
EXAM DATE: 07/15/2018 3:43 AM EDT AGE/SEX: 28 years / Female INDICATIONS: Shortness of breath CLINICAL DATA: This is the patient's subsequent encounter. Patient reports that signs and symptoms h ave been present for 2 days and indicates a pain score of 5/10. MEDICAL/SURGICAL HISTORY: . Asthma. Hepatitis C. None. COMPARISON: C, CHEST 1V SINGLE AP, 07/13/2018. . FINDINGS: Stable right IJ dialysis catheter in place. Patchy bilateral airspace disease unchanged from prior ex am. Cardiac lead remains enlarged. Remainder of exam is unchanged. CONCLUSION: 1. No significant interval change with persistent patchy bilateral airspace disease. Electronically signed by: Brendon Todd MD 07/15/2018 4:10 AM EDT
[2018-07-15] MEDS: Heparin - SQ 10,000 UNITS/ML Vial SQ SCH ×2 (06:00→14:05)
[2018-07-15] MEDS: Famotidine 20 MG Tablet PO SCH ×2 (08:01→20:47)
[2018-07-15] MEDS: Senna/Docusate Sodium 8.6/50 MG Tablet PO SCH ×2 (08:01→20:48)
[2018-07-15] MEDS: Polyethylene Glycol 3350 17 GM Packet PO SCH ×2 (08:01→20:48)
[2018-07-15 09:42] LABS: Baso # (Auto) 0.1 th/mm3 (0.0-0.2); Baso % (Auto) 0.8 % (0.0-2.0); Eos # (Auto) 0.2 th/mm3 (0.0-0.4); Eos % (Auto) 1.5 % (0.0-4.0); Hematocrit 29.1 % (35.0-46.0); Hemoglobin 9.2 gm/dL (11.6-15.3); Lymph % (Auto) 16.5 % (9.0-44.0); Mean Corpuscular HGB Conc 31.5 % (32.0-36.0); Mean Corpuscular Hemoglobin 28.5 pg (27.0-34.0); Mean Corpuscular Volume 90.4 fL (80.0-100.0); Mono # (Auto) 1.1 th/mm3 (0.0-0.9); Mono % (Auto) 8.9 % (0.0-8.0); Neut # (Auto) 8.7 th/mm3 (1.8-7.7); Neut % (Auto) 72.3 % (16.0-70.0); Platelet Count 356 th/mm3 (150-450); Red Blood Count 3.22 mil/mm3 (4.00-5.30); Red Cell Distribution Width 19.3 % (11.6-17.2)
[2018-07-15 09:49] LABS: INR 1.5 Ratio; Prothrombin Time 15.5 sec (9.8-11.6)
[2018-07-15 10:19] LABS: Alkaline Phosphatase 100 U/L (45-117); Anion Gap 7 meq/L (5-15); Aspartate Aminotransferase 12 U/L (15-37); Blood Urea Nitrogen 40 mg/dL (7-18); Calcium 8.3 mg/dL (8.5-10.1); Carbon Dioxide 27.7 meq/L (21.0-32.0); Chloride 99 meq/L (98-107); Glomerular Filtration Rate 11 mL/min (>89); Glucose,Random 105 mg/dL (74-106); Magnesium 2.1 mg/dL (1.5-2.5); Phosphorus 2.7 mg/dL (2.5-4.9); Potassium 4.2 meq/L (3.5-5.1); Sodium 134 meq/L (136-145); Total Protein 7.7 g/dL (6.4-8.2); Vancomycin,Random 14.7 Comment
--- NOTE | 2018-07-15 11:07 | P.PNCC ---
Subjective Subjective Remarks/Hospital Course: This is a 28-year-old female who was recently admitted back in May for infective endocarditis of the tricuspid valve and septic shock. At that time she left AGAINST MEDICAL ADVICE. She then stated that she went to [facility] where she was admitted and was very ill for at least a month or so. She states that she had a breathing tube and was on life support for some time.. She also states that she has a pressure ulcer from that hospitalization. Most recently, she states that her kidneys have failed and she has a dialysis catheter in place in the right neck that she states was placed today. She did not like it at that facility so she states she left AMA to come back to our facility. She endorses fever, chills, chest pain, fatigue, malaise, rigors, shortness of breath. In the emergency department she was febrile. She has an elevated white blood cell count. She also has a creatinine of 5, sodium 131, potassium of 5.9, lactate greater than 3. SUBJ 07/14: Ill-appearing lady lying in ICU bed. Bedside ultrasound shows large tricuspid vegetation with associated moderate to severe TR. also bedside ultrasound shows moderate ascites, patient is tender paracentesis is indicated with fluid studies to rule out an SBP. Patient remains very critical unfortunately I do not think she is a candidate for valve replacement due to noncompliance and leaving AMA multiple times 07/15: subjectively feels some better. objectively looks significantly better compared to admission. plan for HD today. cultures so far NGTD. still on broad spectrum abx. anasarca persists. Objective Vital Signs / I&O: Vital Signs 07/14/18 11:00 07/14/18 12:00 07/14/18 12:39 Temperature 36.6 C Pulse Rate 111 H 106 H 104 H Respiratory Rate 24 20 22 Blood Pressure 125/89 122/83 123/90 Pulse Oximetry 95 96 98 07/14/18 12:45 07/14/18 13:00 07/14/18 13:15 Temperature Pulse Rate 103 H 101 H 100 H Respiratory Rate 37 H 29 H 23 Blood Pressure 123/90 116/84 118/83 Pulse Oximetry 98 96 97 07/14/18 13:30 07/14/18 13:45 07/14/18 14:00 Temperature Pulse Rate 100 H 100 H 100 H Respiratory Rate 21 23 20 Blood Pressure 118/82 118/82 124/82 Pulse Oximetry 97 97 97 07/14/18 14:15 07/14/18 14:30 07/14/18 14:45 Temperature Pulse Rate 97 H 97 H 95 H Respiratory Rate 23 29 H 20 Blood Pressure 125/87 135/92 H 131/92 H Pulse Oximetry 98 99 99 07/14/18 15:00 07/14/18 15:15 07/14/18 15:30 Temperature Pulse Rate 97 H 97 H 104 H Respiratory Rate 20 24 28 H Blood Pressure 123/90 126/92 H 137/101 H Pulse Oximetry 98 98 96 07/14/18 16:00 07/14/18 16:14 07/14/18 17:00 Temperature 36.6 C Pulse Rate 103 H 108 H 115 H Respiratory Rate 19 18 26 H Blood Pressure 133/97 H Pulse Oximetry 92 L 93 L 93 L 07/14/18 17:01 07/14/18 18:00 07/14/18 19:00 Temperature Pulse Rate 115 H 115 H 126 H Respiratory Rate 27 H 22 33 H Blood Pressure 141/109 H 142/103 H Pulse Oximetry 95 92 L 94 L 07/14/18 19:01 07/14/18 20:00 07/14/18 20:08 Temperature 37.7 C H Pulse Rate 126 H 121 H 121 H Respiratory Rate 23 23 26 H Blood Pressure 128/89 156/106 H 139/96 H Pulse Oximetry 95 97 96 07/14/18 20:33 07/14/18 21:00 07/14/18 21:23 Temperature Pulse Rate 117 H 118 H Respiratory Rate 31 H 20 Blood Pressure 139/93 H Pulse Oximetry 98 97 07/14/18 22:00 07/14/18 23:00 07/14/18 23:30 Temperature 37.6 C Pulse Rate 117 H 117 H 118 H Respiratory Rate 24 40 H 26 H Blood Pressure 136/101 H 134/102 H Pulse Oximetry 97 94 L 93 L 07/15/18 00:00 07/15/18 00:04 07/15/18 01:00 Temperature Pulse Rate 116 H 115 H 106 H Respiratory Rate 36 H 36 H 23 Blood Pressure 133/98 H 158/115 H Pulse Oximetry 94 L 97 92 L 07/15/18 01:23 07/15/18 02:00 07/15/18 03:00 Temperature Pulse Rate 106 H 105 H 110 H Respiratory Rate 20 21 31 H Blood Pressure 147/106 H 124/91 H 149/97 H Pulse Oximetry 93 L 92 L 93 L 07/15/18 04:00 07/15/18 05:00 07/15/18 06:00 Temperature Pulse Rate 103 H 108 H 119 H Respiratory Rate 16 23 25 H Blood Pressure 144/102 H Pulse Oximetry 99 95 07/15/18 06:03 07/15/18 06:05 07/15/18 06:33 Temperature Pulse Rate 117 H 113 H 108 H Respiratory Rate 22 10 L 21 Blood Pressure 137/108 H 130/100 H 139/103 H Pulse Oximetry 94 L 95 95 07/15/18 07:00 07/15/18 07:08 07/15/18 07:09 Temperature Pulse Rate 111 H 113 H 112 H Respiratory Rate 23 29 H 27 H Blood Pressure 134/101 H 136/104 H 135/101 H Pulse Oximetry 92 L 96 97 07/15/18 08:00 07/15/18 08:01 07/15/18 08:57 Temperature 37.3 C Pulse Rate 120 H 120 H 122 H Respiratory Rate 24 23 22 Blood Pressure 151/109 H 134/101 H Pulse Oximetry 97 97 07/15/18 09:00 Temperature Pulse Rate 119 H Respiratory Rate 18 Blood Pressure Pulse Oximetry 87 L Intake & Output 07/14/18 07/15/18 07/15/18 18:59 06:59 18:59 Intake Total 580 / 580 1361.2 / 1361.2 Output Total 4000 / 4000 50 / 50 Balance -3420 / -3420 1311.2 / 1311.2 Weight 59.5 kg Intake: IV 100 / 100 611.2 / 611.2 Maxipime Inj 1,000 MG In NS Inj 100 / 100 100 ML @ 200 mls/hr IV.SIG Q24H [facility] Rx#:[id number] MVI-12 Inj 10 ML Thiamine Inj 511.2 / 511.2 100 MG Folvite Inj 1 MG In NS Inj 500 ML @ 125 mls/hr IV.SIG Q24H [facility] Rx#:[id number] Vancomycin Inj 500 MG In NS Inj 100 / 100 100 ML @ 200 mls/hr IV.SIG ONCE ONE Rx#:[id number] Oral 480 / 480 750 / 750 Output: Urine 0 / 0 50 / 50 Hemodialysis Amount 4000 / 4000 Other: # Voids 2 Date of Last Bowel Movement 07/15/18 # Bowel Movements 1 Result Diagrams: 07/15/18 09:25 07/15/18 09:25 Objective Remarks: GENERAL: Young female, lying in bed, deconditioned, critically ill HEENT: Normocephalic. Atraumatic. Pupils equal, round, reactive, conjugate. Mucous membranes are dry NECK: Trachea is midline. Significant JVD up to the level of mandible. There is a right IJ large dialysis catheter in place, with a dressing that is intact. CHEST: Tachypneic. Equal chest rise. Room air. CARDIOVASCULAR: Tachycardic rate, regular rhythm. Sinus. Holosystolic murmur. ABDOMEN: Soft, mildly distended. nontender this AM. No guarding. MUSCULOSKELETAL: Pulses 2+. 3+ peripheral pitting edema. NEUROLOGICAL: RASS 0. Moves all extremities. Follows commands. No focal deficits. Assessment and Plan - Assessment and Plan Plan: Assessment: 28-year-old female with infective tricuspid valve endocarditis and multiorgan dysfunction secondary to endocarditis. remains in heart failure and volume overload, and associated organ failure, including severe renal failure requiring renal replacement therapy. continue to daily pull fluid by HD. Broad spectrum abx. can leave ICU. overall prognosis is quite poor given history of leaving AMA: she will likely not survive if she continues to leave AMA. Plan by systems: Neurologic: IV drug dependence watch for signs of withdrawal prn oxycodone to prevent withdraws f/u confirmatory UDS. unclear if benzos and opiates are iatrogenic from OSH or illicit. avoid long-acting sedatives Last use of IVDU per patient was before lat admission here 3-4 months ago, but I don't think patient is a reliable historian Respiratory: Acute hypoxemia- resolved Septic pulmonary emboli Wean oxygen by nasal cannula for goal SPO2 greater than 90% Fluid removal with dialysis, nephrology consulted Cardiovascular: Infective tricuspid valve endocarditis Moderate tricuspid valve regurgitation Mixed septic and cardiogenic shock secondary to infective endocarditis- resolving. Sinus tachycardia Bedside echo shows large tricuspid regurgitation with moderate to severe TR With noncompliance and multiple AMA discharges, Not a candidate for valve replacement until she can complete antibiotic therapy and demonstrate medical compliance by not leaving AMA. Trend troponins, Keep on telemetry Nephrology consulted for hemodialysis Renal: Severe acute kidney injury requiring renal replacement therapy. Patient came with outside hospital dialysis access in place. Given risk-benefit, will continue OSH dialysis access. Plan for dialysis access: Continue current OSH dialysis catheter until 5-7 days iv antibiotics and until cultures are negative and then replace with new-stick tunneled permacath. If cultures cannot clear, then would recommend changing to new stick percutaneous VasCath for an additional 5-7 days and continue to trend culture data before transitioning to permacath. nephrology consulted will likely need ongoing dialysis during this admission Obtain urine electrolytes Strict I/Os FEN/GI: Acute anion gap metabolic acidosis- resolving. Acute lactic acidosis- resolving. Hyperkalemia- resolving. Severe acute protein calorie malnutrition Acute liver injury- resolving. Acute Hypervolemic Hyponatremia- persistent. advance diet. 1500mL fluid restriction. continue to pull volume with IHD. prealbumin 14 daily cmp, mg, phos liver injury secondary to shock. Hyponatremia is secondary to volume overload from cardiogenic shock. Heme/ID: Infective Endocarditis, Tricuspid valve Septic Shock- resolving. in last admission, MSSA repeat peripheral blood cultures x 2 F/u 2 blood cultures from dialysis catheter which is in place urine cultures, sputum culture vanc with pharmacy dosing. cefepime 1gm iv q24h given renal insufficiency, to cover for pseudomonas re-consulted infectious disease Endocrine: -- SSI Prophylaxis: GI Prophylaxis pepcid DVT Prophylaxis -- SCDs SQH Lines: piv OSH dialysis catheter- see above discussion for timing of replacement. Dispo: transfer out of ICU.
--- NOTE | 2018-07-15 12:21 | P.PNNP ---
Subjective Interval history: Hemodialysis yesterday, tolerated well. Denies shortness of breath. Generalized edema. <AugustinamckenzieAprilDebbie - Last Filed: 07/15/18 12:14> Physical Exam Vital signs: Vital Signs 07/14/18 12:39 07/14/18 12:45 07/14/18 13:00 Temperature Pulse Rate 104 H 103 H 101 H Respiratory Rate 22 37 H 29 H Blood Pressure 123/90 123/90 116/84 Pulse Oximetry 98 98 96 07/14/18 13:15 07/14/18 13:30 07/14/18 13:45 Temperature Pulse Rate 100 H 100 H 100 H Respiratory Rate 23 21 23 Blood Pressure 118/83 118/82 118/82 Pulse Oximetry 97 97 97 07/14/18 14:00 07/14/18 14:15 07/14/18 14:30 Temperature Pulse Rate 100 H 97 H 97 H Respiratory Rate 20 23 29 H Blood Pressure 124/82 125/87 135/92 H Pulse Oximetry 97 98 99 07/14/18 14:45 07/14/18 15:00 07/14/18 15:15 Temperature Pulse Rate 95 H 97 H 97 H Respiratory Rate 20 20 24 Blood Pressure 131/92 H 123/90 126/92 H Pulse Oximetry 99 98 98 07/14/18 15:30 07/14/18 16:00 07/14/18 16:14 Temperature 97.8 F Pulse Rate 104 H 103 H 108 H Respiratory Rate 28 H 19 18 Blood Pressure 137/101 H 133/97 H Pulse Oximetry 96 92 L 93 L 07/14/18 17:00 07/14/18 17:01 07/14/18 18:00 Temperature Pulse Rate 115 H 115 H 115 H Respiratory Rate 26 H 27 H 22 Blood Pressure 141/109 H 142/103 H Pulse Oximetry 93 L 95 92 L 07/14/18 19:00 07/14/18 19:01 07/14/18 20:00 Temperature 100 F H Pulse Rate 126 H 126 H 121 H Respiratory Rate 33 H 23 23 Blood Pressure 128/89 156/106 H Pulse Oximetry 94 L 95 97 07/14/18 20:08 07/14/18 20:33 07/14/18 21:00 Temperature Pulse Rate 121 H 117 H Respiratory Rate 26 H 31 H Blood Pressure 139/96 H 139/93 H Pulse Oximetry 96 98 97 07/14/18 21:23 07/14/18 22:00 07/14/18 23:00 Temperature 99.6 F Pulse Rate 118 H 117 H 117 H Respiratory Rate 20 24 40 H Blood Pressure 136/101 H Pulse Oximetry 97 94 L 07/14/18 23:30 07/15/18 00:00 07/15/18 00:04 Temperature Pulse Rate 118 H 116 H 115 H Respiratory Rate 26 H 36 H 36 H Blood Pressure 134/102 H 133/98 H Pulse Oximetry 93 L 94 L 97 07/15/18 01:00 07/15/18 01:23 07/15/18 02:00 Temperature Pulse Rate 106 H 106 H 105 H Respiratory Rate 23 20 21 Blood Pressure 158/115 H 147/106 H 124/91 H Pulse Oximetry 92 L 93 L 92 L 07/15/18 03:00 07/15/18 04:00 07/15/18 05:00 Temperature Pulse Rate 110 H 103 H 108 H Respiratory Rate 31 H 16 23 Blood Pressure 149/97 H 144/102 H Pulse Oximetry 93 L 99 95 07/15/18 06:00 07/15/18 06:03 07/15/18 06:05 Temperature Pulse Rate 119 H 117 H 113 H Respiratory Rate 25 H 22 10 L Blood Pressure 137/108 H 130/100 H Pulse Oximetry 94 L 95 07/15/18 06:33 07/15/18 07:00 07/15/18 07:08 Temperature Pulse Rate 108 H 111 H 113 H Respiratory Rate 21 23 29 H Blood Pressure 139/103 H 134/101 H 136/104 H Pulse Oximetry 95 92 L 96 07/15/18 07:09 07/15/18 08:00 07/15/18 08:01 Temperature 99.1 F Pulse Rate 112 H 120 H 120 H Respiratory Rate 27 H 24 23 Blood Pressure 135/101 H 151/109 H Pulse Oximetry 97 97 97 07/15/18 08:57 07/15/18 09:00 Temperature Pulse Rate 122 H 119 H Respiratory Rate 22 18 Blood Pressure 134/101 H Pulse Oximetry 87 L Intake & Output 07/14/18 07/15/18 07/15/18 18:59 06:59 18:59 Intake Total 580 / 580 1361.2 / 1361.2 Output Total 4000 / 4000 50 / 50 Balance -3420 / -3420 1311.2 / 1311.2 Weight 59.5 kg Intake: IV 100 / 100 611.2 / 611.2 Maxipime Inj 1,000 MG In NS Inj 100 / 100 100 ML @ 200 mls/hr IV.SIG Q24H [facility] Rx#:[id number] MVI-12 Inj 10 ML Thiamine Inj 511.2 / 511.2 100 MG Folvite Inj 1 MG In NS Inj 500 ML @ 125 mls/hr IV.SIG Q24H [facility] Rx#:[id number] Vancomycin Inj 500 MG In NS Inj 100 / 100 100 ML @ 200 mls/hr IV.SIG ONCE ONE Rx#:[id number] Oral 480 / 480 750 / 750 Output: Urine 0 / 0 50 / 50 Hemodialysis Amount 4000 / 4000 Other: # Voids 2 Date of Last Bowel Movement 07/15/18 # Bowel Movements 1 Narrative: GENERAL: Alert and oriented. SKIN: Warm and dry. HD catheter right IJ HEAD: Normocephalic. EYES: No scleral icterus. No injection or drainage. NECK: Supple, trachea midline. No JVD or lymphadenopathy. CARDIOVASCULAR: Tachycardia. Regular rate and rhythm without murmurs, gallops, or rubs. RESPIRATORY: Breath sounds equal bilaterally. No accessory muscle use. GASTROINTESTINAL: Abdomen soft, non-tender. Distended. MUSCULOSKELETAL: No cyanosis, or edema. BACK: Nontender without obvious deformity. No CVA tenderness <Debbie Godinez - Last Filed: 07/15/18 12:14> Vital signs: Vital Signs 07/14/18 16:14 07/14/18 17:00 07/14/18 17:01 Temperature Pulse Rate 108 H 115 H 115 H Respiratory Rate 18 26 H 27 H Blood Pressure 133/97 H 141/109 H Pulse Oximetry 93 L 93 L 95 07/14/18 18:00 07/14/18 19:00 07/14/18 19:01 Temperature Pulse Rate 115 H 126 H 126 H Respiratory Rate 22 33 H 23 Blood Pressure 142/103 H 128/89 Pulse Oximetry 92 L 94 L 95 07/14/18 20:00 07/14/18 20:08 07/14/18 20:33 Temperature 100 F H Pulse Rate 121 H 121 H Respiratory Rate 23 26 H Blood Pressure 156/106 H 139/96 H Pulse Oximetry 97 96 98 07/14/18 21:00 07/14/18 21:23 07/14/18 22:00 Temperature Pulse Rate 117 H 118 H 117 H Respiratory Rate 31 H 20 24 Blood Pressure 139/93 H 136/101 H Pulse Oximetry 97 97 07/14/18 23:00 07/14/18 23:30 07/15/18 00:00 Temperature 99.6 F Pulse Rate 117 H 118 H 116 H Respiratory Rate 40 H 26 H 36 H Blood Pressure 134/102 H Pulse Oximetry 94 L 93 L 94 L 07/15/18 00:04 07/15/18 01:00 07/15/18 01:23 Temperature Pulse Rate 115 H 106 H 106 H Respiratory Rate 36 H 23 20 Blood Pressure 133/98 H 158/115 H 147/106 H Pulse Oximetry 97 92 L 93 L 07/15/18 02:00 07/15/18 03:00 07/15/18 04:00 Temperature Pulse Rate 105 H 110 H 103 H Respiratory Rate 21 31 H 16 Blood Pressure 124/91 H 149/97 H 144/102 H Pulse Oximetry 92 L 93 L 99 07/15/18 05:00 07/15/18 06:00 07/15/18 06:03 Temperature Pulse Rate 108 H 119 H 117 H Respiratory Rate 23 25 H 22 Blood Pressure 137/108 H Pulse Oximetry 95 94 L 07/15/18 06:05 07/15/18 06:33 07/15/18 07:00 Temperature Pulse Rate 113 H 108 H 111 H Respiratory Rate 10 L 21 23 Blood Pressure 130/100 H 139/103 H 134/101 H Pulse Oximetry 95 95 92 L 07/15/18 07:08 07/15/18 07:09 07/15/18 08:00 Temperature 99.1 F Pulse Rate 113 H 112 H 120 H Respiratory Rate 29 H 27 H 24 Blood Pressure 136/104 H 135/101 H Pulse Oximetry 96 97 97 07/15/18 08:01 07/15/18 08:57 07/15/18 09:00 Temperature Pulse Rate 120 H 122 H 119 H Respiratory Rate 23 22 18 Blood Pressure 151/109 H 134/101 H Pulse Oximetry 97 87 L 07/15/18 09:52 07/15/18 10:00 07/15/18 11:00 Temperature 99.2 F Pulse Rate 117 H 115 H 113 H Respiratory Rate 33 H 30 H 29 H Blood Pressure 145/104 H Pulse Oximetry 95 95 98 07/15/18 12:39 07/15/18 12:40 Temperature Pulse Rate Respiratory Rate 5 L 9 L Blood Pressure Pulse Oximetry Intake & Output 07/14/18 07/15/18 07/15/18 18:59 06:59 18:59 Intake Total 580 / 580 1361.2 / 1361.2 300 / 300 Output Total 4000 / 4000 50 / 50 100 / 100 Balance -3420 / -3420 1311.2 / 1311.2 200 / 200 Weight 59.5 kg Intake: IV 100 / 100 611.2 / 611.2 Maxipime Inj 1,000 MG In NS Inj 100 / 100 100 ML @ 200 mls/hr IV.SIG Q24H [facility] Rx#:[id number] MVI-12 Inj 10 ML Thiamine Inj 511.2 / 511.2 100 MG Folvite Inj 1 MG In NS Inj 500 ML @ 125 mls/hr IV.SIG Q24H [facility] Rx#:[id number] Vancomycin Inj 500 MG In NS Inj 100 / 100 100 ML @ 200 mls/hr IV.SIG ONCE ONE Rx#:[id number] Oral 480 / 480 750 / 750 300 / 300 Output: Urine 0 / 0 50 / 50 100 / 100 Hemodialysis Amount 4000 / 4000 Other: # Voids 2 Date of Last Bowel Movement 07/15/18 07/15/18 # Bowel Movements 1 1 <Keke Monge Q - Last Filed: 07/15/18 16:10> Assessment and Plan - Assessment (1) Acute kidney injury Code(s): N17.9 - Acute kidney failure, unspecified Status: Acute Plan: Acute kidney injury requiring hemodialysis Has right IJ Hemodialysis catheter. Creatinine at 5.26 -> 4.63 Anuric with Urinary output of 50 ml/24 hours Plan Avoid nephrotoxins including IV contrast and gadolinium. Epogen with dialysis Strict I+O Monitor urinary output and electrolytes Will continue to watch for renal recovery. Hemodialysis yesterday with removal of 4 liters of fluid, tolerated well Continue Hemodialysis on Wednesday, , and Wednesday. Hemodialysis tomorrow will remove fluid as tolerated. (2) Endocarditis Code(s): I38 - Endocarditis, valve unspecified Status: Acute Plan: On antibiotics Renal dose as appropriate (3) Hyperkalemia Code(s): E87.5 - Hyperkalemia Status: Acute Plan: Resolved at 4.2. <Debbie Godinez - Last Filed: 07/15/18 12:14> - Assessment (1) Acute kidney injury Code(s): N17.9 - Acute kidney failure, unspecified Status: Acute Plan: Patient seen and examined, agree with above. Urine out put remain low. HD to continue TTS. (2) Endocarditis Code(s): I38 - Endocarditis, valve unspecified Status: Acute (3) Hyperkalemia Code(s): E87.5 - Hyperkalemia Status: Acute <Bhargav Monge - Last Filed: 07/15/18 16:10>
[2018-07-15] MEDS ORDERED: Vancomycin Inj 1,000 MG in Sodium Chlor 0.9% Inj 250 ML IV.SIG ONE (14:00)
--- NOTE | 2018-07-15 15:31 | P.PNPAL ---
Palliative care attempted to see Ms. Jamil to follow-up for written advance directives. Patient indicated yesterday with palliative care she wished to designate her mother as primary HCS and sister as alternate. Attempted to few multiple times today. Asked by RN and charge nurse not to see due to patient's agitation and interference with her medical care. Patient can be heard in the hallway yelling and cussing at staff. Palliative care will continue to follow throughout hospitalization. Will continue attempts to complete written advance directives and supportive visits to establish rapport.
[2018-07-15] MEDS: Acetaminophen 325 MG Tablet PO PRN (17:36)
[2018-07-16] MEDS: Multivitamin Inj 10 ML, Thiamine Inj 100 MG, Folic Acid Inj 1 MG in Sodium Chlor 0.9% I... IV.SIG SCH (00:33)
[2018-07-16] MEDS: Heparin - SQ 10,000 UNITS/ML Vial SQ SCH ×4 (00:33→21:00)
[2018-07-16] MEDS: Insulin NovoLIN Regular Correctional Sugar Inj SQ SCH ×4 (00:34→18:37)
[2018-07-16] MEDS: Chlorhexidine Gluconate 2% 1 Pack (2 Cloths) TOPICAL SCH (04:00)
[2018-07-16 05:45] LABS: Baso # (Auto) 0.1 th/mm3 (0.0-0.2); Baso % (Auto) 0.9 % (0.0-2.0); Eos # (Auto) 0.2 th/mm3 (0.0-0.4); Eos % (Auto) 1.6 % (0.0-4.0); Hematocrit 28.4 % (35.0-46.0); Lymph # (Auto) 2.4 th/mm3 (1.0-4.8); Lymph % (Auto) 18.1 % (9.0-44.0); Mean Corpuscular HGB Conc 31.6 % (32.0-36.0); Mean Corpuscular Hemoglobin 28.4 pg (27.0-34.0); Mean Platelet Volume 8.5 fL (7.0-11.0); Mono # (Auto) 1.1 th/mm3 (0.0-0.9); Mono % (Auto) 8.7 % (0.0-8.0); Neut # (Auto) 9.2 th/mm3 (1.8-7.7); Neut % (Auto) 70.7 % (16.0-70.0); Platelet Count 382 th/mm3 (150-450); Red Blood Count 3.16 mil/mm3 (4.00-5.30); Red Cell Distribution Width 19.3 % (11.6-17.2); White Blood Count 13.1 th/mm3 (4.0-11.0)
[2018-07-16 05:53] LABS: INR 1.5 Ratio; Prothrombin Time 15.4 sec (9.8-11.6)
[2018-07-16 06:25] LABS: Albumin 1.9 g/dL (3.4-5.0); Alkaline Phosphatase 107 U/L (45-117); Anion Gap 14 meq/L (5-15); Aspartate Aminotransferase 12 U/L (15-37); Blood Urea Nitrogen 45 mg/dL (7-18); Calcium 8.4 mg/dL (8.5-10.1); Carbon Dioxide 22.4 meq/L (21.0-32.0); Chloride 99 meq/L (98-107); Glomerular Filtration Rate 9 mL/min (>89); Glucose,Random 88 mg/dL (74-106); Magnesium 2.2 mg/dL (1.5-2.5); Phosphorus 2.9 mg/dL (2.5-4.9); Potassium 4.9 meq/L (3.5-5.1); Sodium 135 meq/L (136-145); Total Protein 7.6 g/dL (6.4-8.2); Vancomycin,Random 29.5 Comment
--- NOTE | 2018-07-16 09:59 | P.PNNP ---
Subjective Interval history: Patient is alert, seen during HD, no complain. Physical Exam Vital signs: Vital Signs 07/15/18 10:00 07/15/18 11:00 07/15/18 12:39 Temperature 99.2 F Pulse Rate 115 H 113 H Respiratory Rate 30 H 29 H 5 L Blood Pressure Pulse Oximetry 95 98 07/15/18 12:40 07/15/18 16:00 07/15/18 20:00 Temperature 98.0 F 98.6 F Pulse Rate 106 H 112 H Respiratory Rate 9 L 20 16 Blood Pressure 134/101 H 130/77 Pulse Oximetry 97 93 L 07/16/18 00:00 07/16/18 07:23 07/16/18 08:00 Temperature 97.7 F 98.6 F Pulse Rate 104 H 114 H 120 H Respiratory Rate 16 16 19 Blood Pressure 127/90 142/100 H Pulse Oximetry 96 95 91 L Intake & Output 07/15/18 07/16/18 07/16/18 18:59 06:59 18:59 Intake Total 670 / 670 350 / 350 Output Total 100 / 100 Balance 570 / 570 350 / 350 Weight 60.3 kg Intake: IV 250 / 250 Vancomycin Inj 1,000 MG In NS 250 / 250 Inj 250 ML @ 250 mls/hr IV.SIG ONCE ONE Rx#:[id number] Oral 420 / 420 350 / 350 Output: Urine 100 / 100 Other: # Urine Diapers 3 Date of Last Bowel Movement 07/15/18 07/15/18 # Bowel Movements 1 Narrative: GENERAL: Alert and oriented. SKIN: Warm and dry. HD catheter right IJ HEAD: Normocephalic. EYES: No scleral icterus. No injection or drainage. NECK: Supple, trachea midline. No JVD or lymphadenopathy. CARDIOVASCULAR: Tachycardia. Regular rate and rhythm without murmurs, gallops, or rubs. RESPIRATORY: Breath sounds equal bilaterally. No accessory muscle use. GASTROINTESTINAL: Abdomen soft, non-tender. Distended. MUSCULOSKELETAL: No cyanosis, or edema. BACK: Nontender without obvious deformity. No CVA tenderness Assessment and Plan - Assessment (1) Acute kidney injury Code(s): N17.9 - Acute kidney failure, unspecified Status: Acute Plan: Patient has Sepsis and history of IVDA. Develop TED. Urine out put is minimal. Has been on HD. HD now, remove fluid as tolerated. (2) Endocarditis Code(s): I38 - Endocarditis, valve unspecified Status: Acute Plan: On antibiotics Renal dose as appropriate (3) Hyperkalemia Code(s): E87.5 - Hyperkalemia Status: Acute Plan: Resolved at 4.2.
[2018-07-16] MEDS: Folic Acid 1 MG Tablet PO SCH (12:36)
[2018-07-16] MEDS: Polyethylene Glycol 3350 17 GM Packet PO SCH ×2 (12:37→20:50)
[2018-07-16] MEDS: Famotidine 20 MG Tablet PO SCH ×2 (12:37→20:47)
[2018-07-16] MEDS: Senna/Docusate Sodium 8.6/50 MG Tablet PO SCH ×2 (12:38→20:50)
--- NOTE | 2018-07-16 13:15 | P.PNIM ---
Subjective Interval history: Seen at dialysis. She reports mild short of breath however overall doing okay. Complaint of pain over the paracentesis site. No complaint of chest pain. Physical Exam Vital signs: Vital Signs 07/15/18 16:00 07/15/18 20:00 07/16/18 00:00 Temperature 98.0 F 98.6 F 97.7 F Pulse Rate 106 H 112 H 104 H Respiratory Rate 20 16 16 Blood Pressure 134/101 H 130/77 127/90 Pulse Oximetry 97 93 L 96 07/16/18 07:23 07/16/18 08:00 Temperature 98.6 F Pulse Rate 114 H 120 H Respiratory Rate 16 19 Blood Pressure 142/100 H Pulse Oximetry 95 91 L Intake & Output 07/15/18 07/16/18 07/16/18 18:59 06:59 18:59 Intake Total 670 / 670 350 / 350 Output Total 100 / 100 Balance 570 / 570 350 / 350 Weight 60.3 kg Intake: IV 250 / 250 Vancomycin Inj 1,000 MG In NS 250 / 250 Inj 250 ML @ 250 mls/hr IV.SIG ONCE ONE Rx#:[id number] Oral 420 / 420 350 / 350 Output: Urine 100 / 100 Other: # Urine Diapers 3 Date of Last Bowel Movement 07/15/18 07/15/18 # Bowel Movements 1 Narrative: GENERAL: Alert and oriented. SKIN: Warm and dry. HD catheter right IJ CARDIOVASCULAR: Tachycardia. Regular rate and rhythm with 2 out of 6 systolic ejection murmur RESPIRATORY: Breath sounds equal bilaterally. No accessory muscle use. GASTROINTESTINAL: Abdomen soft, non-tender. Distended. MUSCULOSKELETAL: No cyanosis, with trace edema Results - Labs CBC & Chem 7: 07/16/18 05:10 07/16/18 05:10 Laboratory Results - last 24 hr 07/15/18 07/16/18 07/16/18 17:43 00:29 05:10 WBC 13.1 H RBC 3.16 L Hgb 9.0 L Hct 28.4 L MCV 90.0 MCH 28.4 MCHC 31.6 L RDW 19.3 H Plt Count 382 MPV 8.5 Neut % (Auto) 70.7 H Lymph % (Auto) 18.1 [place] % (Auto) 8.7 H Eos % (Auto) 1.6 Baso % (Auto) 0.9 Neut # (Auto) 9.2 H Lymph # (Auto) 2.4 [place] # (Auto) 1.1 H Eos # (Auto) 0.2 Baso # (Auto) 0.1 WBC Differential . Differential Comment Auto diff final PT INR Sodium Potassium Chloride Carbon Dioxide Anion Gap BUN Creatinine Estimated GFR POC Glucose 96 110 Random Glucose Calcium Phosphorus Magnesium Total Bilirubin AST ALT Alkaline Phosphatase Total Protein Albumin Random Vancomycin 07/16/18 07/16/18 07/16/18 05:10 05:10 05:19 WBC RBC Hgb Hct MCV MCH MCHC RDW Plt Count MPV Neut % (Auto) Lymph % (Auto) [place] % (Auto) Eos % (Auto) Baso % (Auto) Neut # (Auto) Lymph # (Auto) [place] # (Auto) Eos # (Auto) Baso # (Auto) WBC Differential Differential Comment PT 15.4 H INR 1.5 Sodium 135 L Potassium 4.9 Chloride 99 Carbon Dioxide 22.4 Anion Gap 14 BUN 45 H Creatinine 5.72 H Estimated GFR 9 L POC Glucose 102 Random Glucose 88 Calcium 8.4 L Phosphorus 2.9 Magnesium 2.2 Total Bilirubin 0.6 AST 12 L ALT Less than 6 L Alkaline Phosphatase 107 Total Protein 7.6 Albumin 1.9 L Random Vancomycin 29.5 07/16/18 07/16/18 08:13 11:09 WBC RBC Hgb Hct MCV MCH MCHC RDW Plt Count MPV Neut % (Auto) Lymph % (Auto) [place] % (Auto) Eos % (Auto) Baso % (Auto) Neut # (Auto) Lymph # (Auto) [place] # (Auto) Eos # (Auto) Baso # (Auto) WBC Differential Differential Comment PT INR Sodium Potassium Chloride Carbon Dioxide Anion Gap BUN Creatinine Estimated GFR POC Glucose 87 98 Random Glucose Calcium Phosphorus Magnesium Total Bilirubin AST ALT Alkaline Phosphatase Total Protein Albumin Random Vancomycin Microbiology 07/14/18 01:45 Blood - Line Aerobic Blood Culture - Preliminary No growth in 2 days 07/14/18 01:45 Blood - Line Anaerobic Blood Culture - Preliminary No growth in 2 days 07/14/18 01:45 Blood - Line Aerobic Blood Culture - Preliminary No growth in 2 days 07/14/18 01:45 Blood - Line Anaerobic Blood Culture - Preliminary No growth in 2 days 07/13/18 20:53 Blood - Peripheral Aerobic Blood Culture - Preliminary No growth in 3 days 07/13/18 20:53 Blood - Peripheral Anaerobic Blood Culture - Preliminary No growth in 3 days 07/13/18 20:49 Blood - Peripheral Aerobic Blood Culture - Preliminary No growth in 3 days 07/13/18 20:49 Blood - Peripheral Anaerobic Blood Culture - Preliminary No growth in 3 days 07/14/18 10:00 Fluid - Ascites Fluid Gram Stain - Final 07/14/18 10:00 Fluid - Ascites Fluid Body Fluid Culture - Preliminary No growth in 48 hours 07/14/18 05:15 Clean Catch Urine Urine Culture - Preliminary Yeast - ID to follow - Procedures 07/14 paracentesis Assessment and Plan - Plan 28-year-old female with infective tricuspid valve endocarditis and multiorgan dysfunction secondary to endocarditis. remains in heart failure and volume overload, and associated organ failure, including severe renal failure requiring renal replacement therapy. continue to daily pull fluid by HD. Broad spectrum abx. can leave ICU. overall prognosis is quite poor given history of leaving AMA: she will likely not survive if she continues to leave AMA. Acute hypoxemia- resolved Septic pulmonary emboli due to history of IV drug abuse Wean oxygen by nasal cannula for goal SPO2 greater than 90% Fluid removal with dialysis, Infective tricuspid valve endocarditis Moderate tricuspid valve regurgitation Mixed septic and cardiogenic shock secondary to infective endocarditis- resolving. Sinus tachycardia Bedside echo shows large tricuspid regurgitation with moderate to severe TR With noncompliance and multiple AMA discharges, Not a candidate for valve replacement until she can complete antibiotic therapy and demonstrate medical compliance by not leaving AMA. Nephrology consulted for hemodialysis IV drug dependence watch for signs of withdrawal prn oxycodone to prevent withdraws f/u confirmatory UDS. unclear if benzos and opiates are iatrogenic from OSH or illicit. avoid long-acting sedatives Last use of IVDU per patient was before last admission here 3-4 months ago, but I don't think patient is a reliable historian and will follow up with urine drug screen Severe acute kidney injury requiring renal replacement therapy. Patient came with outside hospital dialysis access in place. Given risk-benefit, will continue OSH dialysis access. Plan for dialysis access: Continue current OSH dialysis catheter until 5-7 days iv antibiotics and until cultures are negative and then replace with new-stick tunneled permacath. If cultures cannot clear, then would recommend changing to new stick percutaneous VasCath for an additional 5-7 days and continue to trend culture data before transitioning to permacath. nephrology consulted, Dr. Monge following will likely need ongoing dialysis during this admission Strict I/Os Acute anion gap metabolic acidosis- resolving. Acute lactic acidosis- resolving. Hyperkalemia- resolving. Severe acute protein calorie malnutrition Acute liver injury- resolving. Acute Hypervolemic Hyponatremia- persistent. advance diet. 1500mL fluid restriction. continue to pull volume with HD liver injury secondary to shock. Hyponatremia is secondary to volume overload from cardiogenic shock. Infective Endocarditis, Tricuspid valve Septic Shock- resolving. in last admission, MSSA repeat peripheral blood cultures x 2 F/u 2 blood cultures from dialysis catheter which is in place urine cultures, sputum culture pending vanco with pharmacy dosing. cefepime 1gm iv q24h given renal insufficiency, to cover for pseudomonas re-consulted infectious disease GI Prophylaxis pepcid DVT Prophylaxis -- SCDs Heparin subcu Lines: piv OSH dialysis catheter- see above discussion for timing of replacement.
[2018-07-17] MEDS: Insulin NovoLIN Regular Correctional Sugar Inj SQ SCH ×4 (01:17→18:33)
[2018-07-17] MEDS: Chlorhexidine Gluconate 2% 1 Pack (2 Cloths) TOPICAL SCH (04:32)
[2018-07-17 05:58] LABS: Baso # (Auto) 0.1 th/mm3 (0.0-0.2); Baso % (Auto) 1.1 % (0.0-2.0); Eos # (Auto) 0.1 th/mm3 (0.0-0.4); Eos % (Auto) 0.9 % (0.0-4.0); Hematocrit 28.1 % (35.0-46.0); Hemoglobin 8.9 gm/dL (11.6-15.3); Lymph # (Auto) 2.8 th/mm3 (1.0-4.8); Lymph % (Auto) 24.8 % (9.0-44.0); Mean Corpuscular HGB Conc 31.6 % (32.0-36.0); Mean Corpuscular Hemoglobin 28.5 pg (27.0-34.0); Mean Corpuscular Volume 90.3 fL (80.0-100.0); Mean Platelet Volume 8.3 fL (7.0-11.0); Mono # (Auto) 1.1 th/mm3 (0.0-0.9); Mono % (Auto) 9.3 % (0.0-8.0); Neut # (Auto) 7.3 th/mm3 (1.8-7.7); Neut % (Auto) 63.9 % (16.0-70.0); Platelet Count 363 th/mm3 (150-450); Red Blood Count 3.11 mil/mm3 (4.00-5.30); Red Cell Distribution Width 19.7 % (11.6-17.2); White Blood Count 11.5 th/mm3 (4.0-11.0)
[2018-07-17 06:04] LABS: INR 1.5 Ratio; Prothrombin Time 15.3 sec (9.8-11.6)
[2018-07-17] MEDS: Heparin - SQ 10,000 UNITS/ML Vial SQ SCH ×3 (06:04→21:28)
[2018-07-17 06:27] LABS: Alanine Aminotransferase 6 U/L (10-53); Albumin 1.9 g/dL (3.4-5.0); Anion Gap 13 meq/L (5-15); Aspartate Aminotransferase 12 U/L (15-37); Blood Urea Nitrogen 31 mg/dL (7-18); Carbon Dioxide 24.3 meq/L (21.0-32.0); Chloride 97 meq/L (98-107); Glomerular Filtration Rate 12 mL/min (>89); Glucose,Random 110 mg/dL (74-106); Magnesium 1.9 mg/dL (1.5-2.5); Phosphorus 2.8 mg/dL (2.5-4.9); Potassium 4.7 meq/L (3.5-5.1); Sodium 134 meq/L (136-145)
[2018-07-17 06:28] LABS: Alkaline Phosphatase 115 U/L (45-117); Total Protein 7.6 g/dL (6.4-8.2)
[2018-07-17] MEDS: Famotidine 20 MG Tablet PO SCH ×2 (08:42→21:27)
[2018-07-17] MEDS: Folic Acid 1 MG Tablet PO SCH (08:43)
[2018-07-17] MEDS: Senna/Docusate Sodium 8.6/50 MG Tablet PO SCH ×2 (08:44→21:28)
[2018-07-17] MEDS: Polyethylene Glycol 3350 17 GM Packet PO SCH ×2 (08:44→21:28)
--- NOTE | 2018-07-17 10:25 | P.PNIM ---
Subjective Interval history: Patient complained of increased abdominal girth and pain and wants to attempt another paracentesis. Previously, Dr. Abbott attempted paracentesis but had less than 30 cc out. Patient states that she told him to stop the procedure early due to the pain. She is wanting a reattempt of the paracentesis again. She is also complaining of still shortness of breath Physical Exam Vital signs: Vital Signs 07/16/18 14:45 07/16/18 17:28 07/16/18 20:00 Temperature 97.5 F L 98.1 F Pulse Rate 115 H 115 H 116 H Respiratory Rate 19 18 20 Blood Pressure 132/94 H 142/98 H Pulse Oximetry 93 L 94 L 07/16/18 23:48 07/17/18 00:00 07/17/18 08:00 Temperature 98.7 F 98.6 F Pulse Rate 117 H 122 H 118 H Respiratory Rate 20 20 17 Blood Pressure 146/100 H 138/107 H Pulse Oximetry 95 94 L Intake & Output 07/16/18 07/17/18 07/17/18 18:59 06:59 18:59 Intake Total 1000 / 1000 220 / 220 Balance 1000 / 1000 220 / 220 Weight 60.6 kg Intake: IV 100 / 100 Maxipime Inj 1,000 MG In NS Inj 100 / 100 100 ML @ 200 mls/hr IV.SIG Q24H SERGE Rx#:[id number] Oral 1000 / 1000 120 / 120 Other: # Voids 3 Date of Last Bowel Movement 07/15/18 # Bowel Movements 1 Narrative: GENERAL: Alert and oriented. SKIN: Warm and dry. HD catheter right IJ CARDIOVASCULAR: Mild tachycardia. Regular rate and rhythm with 2 out of 6 systolic ejection murmur RESPIRATORY: Breath sounds equal bilaterally. No accessory muscle use. GASTROINTESTINAL: Abdomen soft, Distended with increased abdominal girth. Mild tenderness with no rebound guarding. Normoactive bowel sounds MUSCULOSKELETAL: No cyanosis, clubbing with trace edema Results - Labs CBC & Chem 7: 07/17/18 05:10 07/17/18 05:10 Laboratory Results - last 24 hr 07/14/18 07/16/18 07/16/18 05:15 11:09 17:21 WBC RBC Hgb Hct MCV MCH MCHC RDW Plt Count MPV Neut % (Auto) Lymph % (Auto) [place] % (Auto) Eos % (Auto) Baso % (Auto) Neut # (Auto) Lymph # (Auto) [place] # (Auto) Eos # (Auto) Baso # (Auto) WBC Differential Differential Comment PT INR Sodium Potassium Chloride Carbon Dioxide Anion Gap BUN Creatinine Estimated GFR POC Glucose 98 120 H Random Glucose Calcium Phosphorus Magnesium Total Bilirubin AST ALT Alkaline Phosphatase Total Protein Albumin Urine Color Sarah Urine Clarity Cloudy H Urine pH 7.0 Ur Specific [place]al 1.020 Urine Protein 500 or greater Urine Glucose (UA) 50 Urine Ketones Negative Urine Occult Blood Moderate H Urine Nitrate Negative Urine Bilirubin Negative Urine Urobilinogen Less than 2 Ur Leukocyte Esterase Moderate H Urine RBC 85 H Urine WBC Ur Squamous Epith Cells 53 Urine Bacteria Few H Urine Mucus Few H Micro UA Comment Culture indicated Urine Culture Comments Culture indicated Random Vancomycin 07/17/18 07/17/18 07/17/18 05:10 05:10 05:10 WBC 11.5 H RBC 3.11 L Hgb 8.9 L Hct 28.1 L MCV 90.3 MCH 28.5 MCHC 31.6 L RDW 19.7 H Plt Count 363 MPV 8.3 Neut % (Auto) 63.9 Lymph % (Auto) 24.8 [place] % (Auto) 9.3 H Eos % (Auto) 0.9 Baso % (Auto) 1.1 Neut # (Auto) 7.3 Lymph # (Auto) 2.8 [place] # (Auto) 1.1 H Eos # (Auto) 0.1 Baso # (Auto) 0.1 WBC Differential . Differential Comment Auto diff final PT 15.3 H INR 1.5 Sodium 134 L Potassium 4.7 Chloride 97 L Carbon Dioxide 24.3 Anion Gap 13 BUN 31 H Creatinine 4.51 H Estimated GFR 12 L POC Glucose Random Glucose 110 H Calcium 8.0 L Phosphorus 2.8 Magnesium 1.9 Total Bilirubin 0.6 AST 12 L ALT 6 L Alkaline Phosphatase 115 Total Protein 7.6 Albumin 1.9 L Urine Color Urine Clarity Urine pH Ur Specific [place] Urine Protein Urine Glucose (UA) Urine Ketones Urine Occult Blood Urine Nitrate Urine Bilirubin Urine Urobilinogen Ur Leukocyte Esterase Urine RBC Urine WBC Ur Squamous Epith Cells Urine Bacteria Urine Mucus Micro UA Comment Urine Culture Comments Random Vancomycin 07/17/18 07/17/18 07/17/18 05:10 06:09 07:39 WBC RBC Hgb Hct MCV MCH MCHC RDW Plt Count MPV Neut % (Auto) Lymph % (Auto) [place] % (Auto) Eos % (Auto) Baso % (Auto) Neut # (Auto) Lymph # (Auto) [place] # (Auto) Eos # (Auto) Baso # (Auto) WBC Differential Differential Comment PT INR Sodium Potassium Chloride Carbon Dioxide Anion Gap BUN Creatinine Estimated GFR POC Glucose 118 H 110 Random Glucose Calcium Phosphorus Magnesium Total Bilirubin AST ALT Alkaline Phosphatase Total Protein Albumin Urine Color Urine Clarity Urine pH Ur Specific [place] Urine Protein Urine Glucose (UA) Urine Ketones Urine Occult Blood Urine Nitrate Urine Bilirubin Urine Urobilinogen Ur Leukocyte Esterase Urine RBC Urine WBC Ur Squamous Epith Cells Urine Bacteria Urine Mucus Micro UA Comment Urine Culture Comments Random Vancomycin 21.3 Microbiology 07/14/18 10:00 Fluid - Ascites Fluid Gram Stain - Final 07/14/18 10:00 Fluid - Ascites Fluid Body Fluid Culture - Final No growth in 72 hours (aerobically and anaerobically ) 07/14/18 05:15 Clean Catch Urine Urine Culture - Final Rebekah glabrata 07/14/18 01:45 Blood - Line Aerobic Blood Culture - Preliminary No growth in 2 days 07/14/18 01:45 Blood - Line Anaerobic Blood Culture - Preliminary No growth in 2 days 07/14/18 01:45 Blood - Line Aerobic Blood Culture - Preliminary No growth in 2 days 07/14/18 01:45 Blood - Line Anaerobic Blood Culture - Preliminary No growth in 2 days 07/13/18 20:53 Blood - Peripheral Aerobic Blood Culture - Preliminary No growth in 3 days 07/13/18 20:53 Blood - Peripheral Anaerobic Blood Culture - Preliminary No growth in 3 days 07/13/18 20:49 Blood - Peripheral Aerobic Blood Culture - Preliminary No growth in 3 days 07/13/18 20:49 Blood - Peripheral Anaerobic Blood Culture - Preliminary No growth in 3 days - Procedures 07/14 paracentesis Assessment and Plan - Plan 28-year-old female with infective tricuspid valve endocarditis and multiorgan dysfunction secondary to endocarditis. remains in heart failure and volume overload, and associated organ failure, including severe renal failure requiring renal replacement therapy. continue to daily pull fluid by HD. Broad spectrum abx. can leave ICU. overall prognosis is quite poor given history of leaving AMA: she will likely not survive if she continues to leave AMA. Acute hypoxemia- resolved Septic pulmonary emboli due to history of IV drug abuse Wean oxygen by nasal cannula for goal SPO2 greater than 90%, currently she is 95 % on room air. Fluid removal with dialysis, Infective tricuspid valve endocarditis Moderate tricuspid valve regurgitation Mixed septic and cardiogenic shock secondary to infective endocarditis- resolving. Sinus tachycardia Bedside echo shows large tricuspid regurgitation with moderate to severe TR With noncompliance and multiple AMA discharges, Not a candidate for valve replacement until she can complete antibiotic therapy and demonstrate medical compliance by not leaving AMA. Nephrology consulted for hemodialysis IV drug dependence watch for signs of withdrawal prn oxycodone to prevent withdraws f/u confirmatory UDS. unclear if benzos and opiates are iatrogenic from OSH or illicit. avoid long-acting sedatives Last use of IVDU per patient was before last admission here 3-4 months ago, but I don't think patient is a reliable historian and will follow up with urine drug screen which is currently pending Severe acute kidney injury requiring renal replacement therapy. Patient came with outside hospital dialysis access in place. Given risk-benefit, will continue OSH dialysis access. Plan for dialysis access: Continue current OSH dialysis catheter until 5-7 days iv antibiotics and until cultures are negative and then replace with new-stick tunneled permacath. If cultures cannot clear, then would recommend changing to new stick percutaneous VasCath for an additional 5-7 days and continue to trend culture data before transitioning to permacath. nephrology consulted, Dr. Monge following will likely need ongoing dialysis during this admission Strict I/Os Acute anion gap metabolic acidosis- resolving. Acute lactic acidosis- resolving. Hyperkalemia- resolving. Severe acute protein calorie malnutrition Acute liver injury- resolving. Acute Hypervolemic Hyponatremia- persistent. advance diet. 1500mL fluid restriction. continue to pull volume with HD liver injury secondary to shock. Hyponatremia is secondary to volume overload from cardiogenic shock. Ascitesultrasound abdomen to review if there is no fluid for paracentesis for therapeutic treatment. Infective Endocarditis, Tricuspid valve Septic Shock- resolving. in last admission, MSSA repeat peripheral blood cultures x 2 F/u 2 blood cultures from dialysis catheter which is in place urine cultures, sputum culture pending vanco with pharmacy dosing. cefepime 1gm iv q24h given renal insufficiency, to cover for pseudomonas re-consulted infectious disease GI Prophylaxis pepcid DVT Prophylaxis -- SCDs Heparin subcu Lines: piv OSH dialysis catheter- see above discussion for timing of replacement.
--- NOTE | 2018-07-17 11:18 | P.PNNP ---
Subjective Interval history: Patient is alert, complaining of anxiety, no pain, has mild SOB. Physical Exam Vital signs: Vital Signs 07/16/18 14:45 07/16/18 17:28 07/16/18 20:00 Temperature 97.5 F L 98.1 F Pulse Rate 115 H 115 H 116 H Respiratory Rate 19 18 20 Blood Pressure 132/94 H 142/98 H Pulse Oximetry 93 L 94 L 07/16/18 23:48 07/17/18 00:00 07/17/18 08:00 Temperature 98.7 F 98.6 F Pulse Rate 117 H 122 H 118 H Respiratory Rate 20 20 17 Blood Pressure 146/100 H 138/107 H Pulse Oximetry 95 94 L Intake & Output 07/16/18 07/17/18 07/17/18 18:59 06:59 18:59 Intake Total 1000 / 1000 220 / 220 Balance 1000 / 1000 220 / 220 Weight 60.6 kg Intake: IV 100 / 100 Maxipime Inj 1,000 MG In NS Inj 100 / 100 100 ML @ 200 mls/hr IV.SIG Q24H SERGE Rx#:[id number] Oral 1000 / 1000 120 / 120 Other: # Voids 3 Date of Last Bowel Movement 07/15/18 # Bowel Movements 1 Narrative: GENERAL: Alert and oriented. SKIN: Warm and dry. HD catheter right IJ CARDIOVASCULAR: Mild tachycardia. Regular rate and rhythm with 2 out of 6 systolic ejection murmur RESPIRATORY: Breath sounds equal bilaterally. No accessory muscle use. GASTROINTESTINAL: Abdomen soft, Distended with increased abdominal girth. Mild tenderness with no rebound guarding. Normoactive bowel sounds MUSCULOSKELETAL: No cyanosis, clubbing with trace edema Assessment and Plan - Assessment (1) Acute kidney injury Code(s): N17.9 - Acute kidney failure, unspecified Status: Acute Plan: Patient has Sepsis and history of IVDA. Develop TED. Urine out put is minimal. Has been on HD. HD done yesterday, Urine out put is low. Will need to continue HD, TTS. Watch for renal recovery. (2) Endocarditis Code(s): I38 - Endocarditis, valve unspecified Status: Acute Plan: On antibiotics Renal dose as appropriate (3) Hyperkalemia Code(s): E87.5 - Hyperkalemia Status: Acute Plan: Resolved at 4.2.
--- NOTE | 2018-07-17 16:31 | US ---
EXAM DATE: 07/17/2018 4:15 PM EDT AGE/SEX: 28 years / Female INDICATIONS: Ascites. Failed paracentesis on the floor. CLINICAL DATA: This is the patient's initial encounter. Patient reports that signs and symptoms have been present for 1 month and indicates a pain score of 0/10. MEDICAL/SURGICAL HISTORY: . Asthma. Cholecystitis. Endocarditis. Hemodialysis. . Tooth extract ion. COMPARISON: [facility] [place], CT ABDOMEN & PELVIS W/O CONTRAST, 07/13/2018. . FLUID: Total volume of 2100 cc of clear, green fluid was removed. Fluid was discarded. Paracentesis was ther apeutic only. . . TECHNIQUE: Ultrasound guidance for abdominal paracentesis. Paracentesis. The risks, benefits, and alternatives to ultrasound guided paracentesis were explained to the patient in detail including the risk of bleeding and infection. Written and verbal informed consent was obt ained. With the patient on the ultrasound table, ultrasound imaging was used to select the most appropriate approach for paracentesis. The patient's fluid is evenly distributed throughout the abdomen. The only pocket large enough for access involves the right lower quadrant medially. This was targeted during the paracentesis. Direct ultrasound guidance was utilized during the access. Overlying skin was prepp ed and draped in the usual sterile fashion and with a local anesthetic, a dermatotomy was made with a n 11 blade scalpel. A 6 [place] Citizen skater catheter was introduced into the peritoneal cavity under direc t sonographic guidance and fluid was collected. Post procedure scanning reveals no hematoma or other complication. The patient tolerated the procedu re well and left the ultrasound suite in stable condition. CONCLUSION: 1. Uncomplicated paracentesis. Electronically signed by: Marcin Seay MD 07/17/2018 4:29 PM EDT
[2018-07-18] MEDS: Insulin NovoLIN Regular Correctional Sugar Inj SQ SCH ×5 (01:10→23:07)
[2018-07-18] MEDS: Chlorhexidine Gluconate 2% 1 Pack (2 Cloths) TOPICAL SCH (04:52)
[2018-07-18] MEDS: Heparin - SQ 10,000 UNITS/ML Vial SQ SCH ×3 (05:52→21:33)
[2018-07-18] MEDS: Folic Acid 1 MG Tablet PO SCH (09:00)
[2018-07-18] MEDS: Famotidine 20 MG Tablet PO SCH ×2 (09:00→21:32)
[2018-07-18] MEDS: Polyethylene Glycol 3350 17 GM Packet PO SCH ×2 (09:04→21:31)
[2018-07-18] MEDS: Senna/Docusate Sodium 8.6/50 MG Tablet PO SCH ×2 (09:04→21:31)
--- NOTE | 2018-07-18 10:20 | P.PNNP ---
Subjective Interval history: Seen in morning. Reports that she is short of breath and has pain all over. Appears to be breathing easily. <Debbie Godinez - Last Filed: 07/18/18 14:36> Physical Exam Vital signs: Vital Signs 07/17/18 12:00 07/17/18 16:00 07/17/18 19:26 Temperature 98.7 F 98.3 F Pulse Rate 114 H 121 H 119 H Respiratory Rate 17 17 20 Blood Pressure 137/108 H 143/105 H Pulse Oximetry 92 L 94 L 07/17/18 20:00 07/18/18 00:00 Temperature 98.4 F 99.3 F Pulse Rate 123 H 120 H Respiratory Rate 22 22 Blood Pressure 150/104 H 146/84 H Pulse Oximetry 95 96 Intake & Output 07/17/18 07/18/18 07/18/18 18:59 06:59 18:59 Intake Total 222 / 222 100 / 100 Output Total 50 / 50 Balance 222 / 222 50 / 50 Weight 60.1 kg Intake: IV 100 / 100 Maxipime Inj 1,000 MG In NS Inj 100 / 100 100 ML @ 200 mls/hr IV.SIG Q24H SERGE Rx#:[id number] Oral 222 / 222 Output: Urine 50 / 50 Other: # Voids 3 Date of Last Bowel Movement 07/15/18 # Bowel Movements 1 Narrative: GENERAL: Appears comfortable, NAD SKIN: Warm and dry. Permacath right IJ HEAD: Normocephalic. EYES: No scleral icterus. No injection or drainage. NECK: Supple, trachea midline. No JVD or lymphadenopathy. CARDIOVASCULAR: Regular rate and rhythm without murmurs, gallops, or rubs. RESPIRATORY: Breath sounds equal bilaterally. No accessory muscle use. GASTROINTESTINAL: Abdomen soft, non-tender, nondistended. No rebound or guarding. MUSCULOSKELETAL: No cyanosis, or edema. BACK: Nontender without obvious deformity. No CVA tenderness. <Debbie Godienz - Last Filed: 07/18/18 14:36> Vital signs: Vital Signs 07/17/18 19:26 07/17/18 20:00 07/18/18 00:00 Temperature 98.4 F 99.3 F Pulse Rate 119 H 123 H 120 H Respiratory Rate 20 22 22 Blood Pressure 150/104 H 146/84 H Pulse Oximetry 95 96 07/18/18 11:33 07/18/18 12:02 07/18/18 14:30 Temperature 97.8 F 98.3 F Pulse Rate 110 H 108 H 110 H Respiratory Rate 19 20 19 Blood Pressure 137/96 H 140/95 H Pulse Oximetry 96 19 L Intake & Output 07/17/18 07/18/18 07/18/18 18:59 06:59 18:59 Intake Total 222 / 222 100 / 100 Output Total 50 / 50 Balance 222 / 222 50 / 50 Weight 60.1 kg Intake: IV 100 / 100 Maxipime Inj 1,000 MG In NS Inj 100 / 100 100 ML @ 200 mls/hr IV.SIG Q24H SERGE Rx#:[id number] Oral 222 / 222 Output: Urine 50 / 50 Other: # Voids 3 Date of Last Bowel Movement 07/15/18 # Bowel Movements 1 <Bhargav Monge - Last Filed: 07/18/18 18:08> Assessment and Plan - Assessment (1) Acute kidney injury Code(s): N17.9 - Acute kidney failure, unspecified Status: Acute Plan: Acute kidney injury requiring hemodialysis Patient has sepsis with hx of IVDA, developed TED Has right IJ Hemodialysis catheter Plan Avoid nephrotoxins including IV contrast and gadolinium. Epogen with dialysis Strict I+O Hyperkalemia, potassium level of 5.9, Kayexalate order Renal diet, low potassium Monitor urinary output and electrolytes Will continue to watch for renal recovery, urine output is minimal Continue Hemodialysis on Wednesday, , and Wednesday. Hemodialysis tomorrow will remove fluid as tolerated. (2) Endocarditis Code(s): I38 - Endocarditis, valve unspecified Status: Acute Plan: On antibiotics Renal dose as appropriate (3) Hyperkalemia Code(s): E87.5 - Hyperkalemia Status: Acute Plan: Resolved at 5.9 Kayexalate given labs in AM. <Debbie Godinez - Last Filed: 07/18/18 14:36> - Assessment (1) Acute kidney injury Code(s): N17.9 - Acute kidney failure, unspecified Status: Acute Plan: Patient seen and examined, agree with above. K is elevated, given Kayexalate. HD will be in AM. (2) Endocarditis Code(s): I38 - Endocarditis, valve unspecified Status: Acute (3) Hyperkalemia Code(s): E87.5 - Hyperkalemia Status: Acute <Bhargav Monge - Last Filed: 07/18/18 18:08>
--- NOTE | 2018-07-18 11:02 | P.CONID ---
History of Present Illness Service: Infectious disease Consult date: 07/18/18 Requesting Physician: Adarsh Gomez Reason for Consult: Evaluate patient with endocarditis Primary Care Provider: UNKNOWN Family Provider: No Primary Care Physician Chief Complaint: fever History of Present Illness: Patient seen and examined. Records reviewed. Patient is a very poor historian. She is a 28-year-old female, who was here at [facility] the first week of May and at that time she was diagnosed to have MSSA bacteremia, and highly suspicious for endocarditis. She had evidence of multiple pulmonary septic emboli, but her echocardiogram did not show any vegetation, but it did show moderate tricuspid valve regurgitation. She signed out AGAINST MEDICAL ADVICE, and it looks like she was admitted at [facility] and I do not have any details on that. She told me she was in that hospital for at least 1-1/2-2 weeks, and reportedly signed out AGAINST MEDICAL ADVICE again, and presented to [facility] and was admitted July 12, and signed out AMA again, and presented here at [facility] on July 14. I have some records from [facility], and her creatinine was elevated at that time. She had a right IJ Vas-Cath placement on July 12. Since admission here, her highest temperature has been 100.7. Her blood cultures have been negative. Her chest x-ray showing bilateral infiltrates. Her creatinine is elevated. She has had hemodialysis since admission. Patient currently is complaining of abdominal pain. She has had paracentesis yesterday , and had removal of about 2.1 L of ascites. She is complaining that it feels like her fluid has reaccumulated. She is currently afebrile. She has mild shortness of breath. She is currently on IV cefepime. Infectious disease consultation has been requested to assist with evaluation and treatment. Review of Systems Constitutional: Reports body ache(s), Reports fever(s), Reports malaise, Denies headache(s) Eyes: Denies discharge, Denies dry eyes Ears, Nose, Mouth, and Throat: Denies difficulty swallowing, Denies ear pain, Denies lip swelling, Denies nasal congestion, Denies nasal discharge, Denies sore throat Cardiovascular: Reports chest pain, Reports leg swelling, Reports shortness of breath Respiratory: Denies chest congestion, Denies cough Gastrointestinal: Reports abdominal pain, Reports bloating, Denies loose stools , Denies pain with swallowing Genitourinary: Denies difficulty urinating, Denies painful urination Musculoskeletal: Reports joint swelling, Denies limited joint movement, Denies muscle weakness Skin/Breast: Denies rash, Denies sores Neurologic: Denies fainting, Denies localized weakness PMFSH - History History Provided By: Patient - Medical History Medical History: Medical History (Last Updated 07/14/18 @ 17:19 by Jo Ann Garcia) Cholecystitis (Acute) Asthma (Acute) Endocarditis Hemodialysis patient - Surgical History Surgical History: Surgical History (Last Updated 07/14/18 @ 17:19 by Jo Ann Garcia) H/O tooth extraction History of dental surgery - Family History Family History: Family History (Last Reviewed 05/05/18 @ 13:03 by Paty Trujillo MD) Father Family history of cancer Mother Family history of acute myocardial infarction - Tobacco History Second Hand Smoke Exposure: No Tobacco Use In Past 30 Days: No Smoking Status: Former smoker Tobacco Type: Cigarettes - Alcohol History How Often Do You Have a Drink Containing Alcohol: Never - Substance Use History Substance History: Active Abuse - Substance Use Type Heroin Status: Active Route Used: Intravenously Reason for Use: Get High - Travel History Recent Travel in the [place] Within the Last 8 Weeks: No Recent Travel Out of the Country Within the Last 8 Weeks: No - Immunization History Tetanus Immunization: <5 Years Hx Influenza Vaccine This Season: No Medications and Allergies Active Medications: Active Medications Acetaminophen (Tylenol) 650 mg PO Q6H PRN PRN Reason: TEMPERATURE > 101 F Last Admin: 07/15/18 17:36 Dose: 650 mg Acetaminophen (Tylenol) 650 mg PO UNSCH PRN PRN Reason: SEE LABEL COMMENTS Albuterol (Duoneb Neb (Prn)) 1 ampul NEB Q2HR NEB PRN PRN Reason: WHEEZING Last Admin: 07/17/18 19:24 Dose: 1 ampul Bisacodyl (Dulcolax Supp) 10 mg RECTAL DAILY PRN PRN Reason: if no BM in last 24h Chlorhexidine Gluconate (Chlorhexidine 2% Cloth) 3 pack TOPICAL DAILY@0400 SERGE Stop: 07/19/18 03:59 Last Admin: 07/18/18 04:52 Dose: Not Given Chlorhexidine Gluconate (Chlorhexidine 2% Cloth) 3 pack TOPICAL DAILY@0400 PRN PRN Reason: Extra cloth needed Stop: 07/19/18 03:59 Dextrose (D50w Syringe) 50 ml IV.PUSH UNSCH PRN PRN Reason: PER HYPOGLYCEMIA PROTOCOL Epoetin Carlos Alberto (Epogen Inj) 10,000 unit IV.PUSH UNSCH PRN PRN Reason: SEE LABEL COMMENTS Famotidine (Pepcid) 10 mg PO BID SERGE Last Admin: 07/18/18 09:00 Dose: 10 mg Folic Acid (Folic Acid) 1 mg PO DAILY SERGE Stop: 07/19/18 08:59 Last Admin: 07/18/18 09:00 Dose: 1 mg Gelatin (Gelfoam 12 Mm/7 Mm Topical) 1 foam TOPICAL PRN PRN PRN Reason: help stop bleeding from site Gentamicin Sulfate (Gentamicin Inj) 20 mg OTHER WITH DIALYSIS PRN PRN Reason: Dwell Gentamycin Lock Last Admin: 07/14/18 15:30 Dose: 20 mg Glucagon (Glucagon Inj) 1 mg OTHER UNSCH PRN PRN Reason: FOR HYPOGLYCEMIA PROTOCOL Heparin Sodium (Porcine) (Heparin Inj) 5,000 units SQ Q8HR SERGE Last Admin: 07/18/18 05:52 Dose: 5,000 units Heparin Sodium (Porcine) (Heparin Inj) 1,000 units OTHER WITH DIALYSIS PRN PRN Reason: Dwell Heparin to Fill Catheter Heparin Sodium (Porcine) (Heparin Inj) 8,000 units OTHER WITH DIALYSIS PRN PRN Reason: for machine prime Albumin Human (Flexbumin 25% Inj) 100 mls @ 60 mls/hr IV.SIG WITH DIALYSIS PRN PRN Reason: hypotension / volume replace Sodium Chloride (Ns Inj) 1,000 mls @ 0 mls/hr OTHER .Q0M PRN PRN Reason: for prime and rinse back Sodium Chloride (Ns Inj) 1,000 mls @ 200 mls/hr OTHER .Q5H PRN PRN Reason: for dialyzer flush PRN Sodium Chloride (Ns Inj) 1,000 mls @ 0 mls/hr IV.CONT .Q0M PRN PRN Reason: hypotension / volume replace Cefazolin Sodium 2,000 mg/ (Sodium Chloride) 100 mls @ 200 mls/hr IV.SIG DAILY SERGE Insulin Human Regular (Novolin R Correctional Sugar Inj) 0 units SQ Q6HR SERGE; Protocol Last Admin: 07/18/18 05:54 Dose: Not Given Lactulose (Lactulose Liq) 30 ml PO BID [facility] Last Admin: 07/18/18 09:04 Dose: Not Given Mannitol (Mannitol Inj) 12.5 gm IV.PUSH UNSCH PRN PRN Reason: hypotension / volume replace Nitroglycerin (Nitrostat Sl) 0.4 mg SL Q5M PRN PRN Reason: CHEST PAIN Ondansetron HCl (Zofran Inj) 4 mg IV.PUSH Q6H PRN PRN Reason: NAUSEA OR VOMITING Last Admin: 07/17/18 06:04 Dose: 4 mg Ondansetron HCl (Zofran Inj) 4 mg IV.PUSH UNSCH PRN PRN Reason: NAUSEA OR VOMITING Oxycodone HCl (Roxicodone) 5 mg PO Q4H PRN PRN Reason: Pain 1-5 Last Admin: 07/18/18 09:01 Dose: 5 mg Pharmacy Profile Note (Vancomycin Consult Pharmacy) 1 each OTHER PRN PRN PRN Reason: Pharmacy to dose Polyethylene Glycol (Miralax) 17 gm PO BID [facility] Last Admin: 07/18/18 09:04 Dose: Not Given Senna/Docusate Sodium (Jud-Colace) 1 tab PO BID [facility] Last Admin: 07/18/18 09:04 Dose: Not Given Sodium Chloride (Ns Flush) 2 ml IV.FLUSH UNSCH PRN PRN Reason: FLUSH AFTER USING IV ACCESS Sodium Chloride (Ns Flush) 5 ml IV.FLUSH PRN PRN PRN Reason: flush each lumen during HD Thiamine HCl (Vitamin B1) 100 mg PO DAILY [facility] Stop: 07/19/18 08:59 Last Admin: 07/18/18 09:00 Dose: 100 mg Allergies Allergy/AdvReac Type Severity Reaction Status Date / Time sweet potato Allergy Severe Hives Verified 05/29/18 19:49 amoxicillin Allergy Intermediate SWELLING, Verified 05/29/18 19:49 HIVES penicillin G Allergy Intermediate Hives Verified 05/29/18 19:49 Home Medications Medication Instructions Recorded Confirmed Type No Known Home Medications 05/04/18 07/13/18 History Exam Vital signs: Vital Signs 07/17/18 12:00 07/17/18 16:00 07/17/18 19:26 Temperature 98.7 F 98.3 F Pulse Rate 114 H 121 H 119 H Respiratory Rate 17 17 20 Blood Pressure 137/108 H 143/105 H Pulse Oximetry 92 L 94 L 07/17/18 20:00 07/18/18 00:00 Temperature 98.4 F 99.3 F Pulse Rate 123 H 120 H Respiratory Rate 22 22 Blood Pressure 150/104 H 146/84 H Pulse Oximetry 95 96 Intake & Output 07/17/18 07/18/18 07/18/18 18:59 06:59 18:59 Intake Total 222 / 222 100 / 100 Output Total 50 / 50 Balance 222 / 222 50 / 50 Weight 60.1 kg Intake: IV 100 / 100 Maxipime Inj 1,000 MG In NS Inj 100 / 100 100 ML @ 200 mls/hr IV.SIG Q24H SERGE Rx#:[id number] Oral 222 / 222 Output: Urine 50 / 50 Other: # Voids 3 Date of Last Bowel Movement 07/15/18 # Bowel Movements 1 Narrative: Physical Examination GENERAL: Patient is a well-nourished, well-developed female, awake and alert , not in respiratory distress. SKIN: Cool and dry. No generalized rash, no ecchymoses and no evidence of embolic lesions. HEAD: Atraumatic. Normocephalic. No temporal wasting, or tenderness. EYES: Adin conjunctiva. No petechia or hemorrhage. Pupils equal, round and reactive to light. Extraocular movements full and intact. No scleral icterus. No injection or drainage. EARS, NOSE AND THROAT: Nose without bleeding or purulent nasal discharge. No sinus tenderness. Mucous membranes pink and moist. No oral lesions noted. No exudate. No oral thrush. NECK: Trachea midline. Supple and not tender, no meningeal signs CARDIOVASCULAR: Regular rate and rhythm. (+) systolic murmur in L precordium, no rub. RESPIRATORY: Clear to auscultation. Breath sounds equal bilaterally. No rales , wheezing or rhonchi ABDOMEN: Distended abdomen, diffusely tender, no guarding or rebound. Bowel sounds present and normoactive. EXTREMITIES: No clubbing, cyanosis. Has mild bilateral pedal edema. No joint effusion, has good ROM. No calf tenderness. Well perfused and warm. NEUROLOGICAL: Awake and alert. Cranial nerves grossly intact. Motor grossly within normal limits. PSYCHIATRIC: Normal affect, calm and cooperative. LINE: [facility] with no evidence of infection Results - Labs CBC & Chem 7: 07/17/18 05:10 07/17/18 05:10 Labs: Laboratory Results - last 24 hr 07/17/18 07/17/18 07/18/18 12:28 17:10 08:36 POC Glucose 101 106 90 - Imaging Impressions Paracentesis Ultrasound 07/17/18 00:00 CONCLUSION: 1. Uncomplicated paracentesis. Abdomen/Pelvis CT 07/13/18 20:07 CONCLUSION: 1. Bibasilar patchy airspace disease and minimal pleural fluid. 2. Moderate amount of diffuse ascites as well as anasarca. 3. Nonobstructive bowel gas pattern with poor delineation of the bowel secondary to anasarca, lack of intravenous and oral contrast. 4. Cardiomegaly. Chest X-Ray 07/15/18 06:00 CONCLUSION: 1. No significant interval change with persistent patchy bilateral airspace disease. Assessment and Plan - Plan Impression Episode of MSSA sepsis last May 2018, very suspicious for IE 2 recent hospitalizations at [facility] and [place], no details on hospitalization at [facility] Renal failure, now requiring hemodialysis Hepatitis C Known IV drug use Very poor medical compliance Recommendation Get records from [facility] IV Ancef for MSSA Follow cultures Monitor progress I will determine course of treatment once workup is completed I will follow along with you Thank you for this consultation
[2018-07-18 11:54] LABS: Baso # (Auto) 0.2 th/mm3 (0.0-0.2); Baso % (Auto) 1.6 % (0.0-2.0); Eos # (Auto) 0.1 th/mm3 (0.0-0.4); Eos % (Auto) 0.9 % (0.0-4.0); Hematocrit 27.6 % (35.0-46.0); Hemoglobin 9.3 gm/dL (11.6-15.3); Lymph # (Auto) 2.8 th/mm3 (1.0-4.8); Lymph % (Auto) 25.3 % (9.0-44.0); Mean Corpuscular HGB Conc 33.7 % (32.0-36.0); Mean Corpuscular Hemoglobin 30.7 pg (27.0-34.0); Mean Corpuscular Volume 91.3 fL (80.0-100.0); Mean Platelet Volume 7.9 fL (7.0-11.0); Mono # (Auto) 1.1 th/mm3 (0.0-0.9); Mono % (Auto) 9.9 % (0.0-8.0); Neut # (Auto) 6.9 th/mm3 (1.8-7.7); Neut % (Auto) 62.3 % (16.0-70.0); Platelet Count 365 th/mm3 (150-450); Red Blood Count 3.02 mil/mm3 (4.00-5.30); Red Cell Distribution Width 20.6 % (11.6-17.2); White Blood Count 11.1 th/mm3 (4.0-11.0)
[2018-07-18 12:00] LABS: INR 1.7 Ratio; Prothrombin Time 17.4 sec (9.8-11.6)
--- NOTE | 2018-07-18 12:14 | P.PNPAL ---
Palliative care continues to follow along with Ms. Jamil to continue conversations regarding goals of medical treatment, assist with symptom management and completion of written advance directives. Ms. Jamil seen in her room, [id number]. No family at bedside. Nurse in providing care. Ms. Jamil is alert, oriented, and able to make her needs known. Verbalizes she is in pain, specifically her stomach and back. Reports she declined working with therapy today because she has been feeling nauseous. Currently awaiting breathing treatment for shortness of breath. Ms. Jamil inquires about changing medications. She tells me "the martin just makes me itchy and does not help the pain". Also verbalizes "I used to do heroin, this doesn't touch my pain". Further states "if I'm going to leave here to get high when I get out then I'm going to do that, it doesn't mean I should have to suffer while I am here". She tells me she does not wish to . She understands her medical condition and that surgery may not be an option for her. She feels like she may need her gallbladder removed as "all my sisters have had to have theirs removed too". She further reports dilaudid was most helpful to her in regards to controlling the pain. She verbalizes "a low dose is fine, I don't need a ton". Ms. Jamil opted to complete health care surrogate. She has designated her mother as primary and her sister, Aline Jamil as alternate. Copy faxed to HIM to be scanned into EMR and copy placed on chart. Sister Aline does not currently have an active phone. Palliative care will continue to follow throughout hospitalization.
[2018-07-18 12:24] LABS: Alanine Aminotransferase 6 U/L (10-53); Alkaline Phosphatase 98 U/L (45-117); Anion Gap 16 meq/L (5-15); Aspartate Aminotransferase 15 U/L (15-37); Blood Urea Nitrogen 49 mg/dL (7-18); Calcium 8.5 mg/dL (8.5-10.1); Carbon Dioxide 20.9 meq/L (21.0-32.0); Chloride 95 meq/L (98-107); Glomerular Filtration Rate 8 mL/min (>89); Glucose,Random 102 mg/dL (74-106); Magnesium 2.3 mg/dL (1.5-2.5); Phosphorus 4.7 mg/dL (2.5-4.9); Potassium 5.9 meq/L (3.5-5.1); Sodium 132 meq/L (136-145); Total Protein 7.9 g/dL (6.4-8.2); Vancomycin,Random 16.8 Comment
--- NOTE | 2018-07-18 13:04 | P.PNIM ---
Subjective Interval history: Patient reports abdominal distention continues. Denies any chest pain or shortness of breath. Physical Exam Vital signs: Vital Signs 07/17/18 16:00 07/17/18 19:26 07/17/18 20:00 Temperature 98.3 F 98.4 F Pulse Rate 121 H 119 H 123 H Respiratory Rate 17 20 22 Blood Pressure 143/105 H 150/104 H Pulse Oximetry 94 L 95 07/18/18 00:00 07/18/18 11:33 07/18/18 12:02 Temperature 99.3 F 97.8 F Pulse Rate 120 H 110 H 108 H Respiratory Rate 22 19 20 Blood Pressure 146/84 H 137/96 H Pulse Oximetry 96 96 Intake & Output 07/17/18 07/18/18 07/18/18 18:59 06:59 18:59 Intake Total 222 / 222 100 / 100 Output Total 50 / 50 Balance 222 / 222 50 / 50 Weight 60.1 kg Intake: IV 100 / 100 Maxipime Inj 1,000 MG In NS Inj 100 / 100 100 ML @ 200 mls/hr IV.SIG Q24H SERGE Rx#:[id number] Oral 222 / 222 Output: Urine 50 / 50 Other: # Voids 3 Date of Last Bowel Movement 07/15/18 # Bowel Movements 1 Narrative: GENERAL: Patient sitting up in bed. Appears comfortable. SKIN: Warm and dry. HEAD: Normocephalic. EYES: No scleral icterus. No injection or drainage. NECK: Supple, trachea midline. No JVD or lymphadenopathy. CARDIOVASCULAR: Regular rate and rhythm without murmurs, gallops, or rubs. RESPIRATORY: Breath sounds equal bilaterally. No accessory muscle use. GASTROINTESTINAL: Abdomen soft, non-tender, nondistended. No rebound or guarding. MUSCULOSKELETAL: No cyanosis, or edema. BACK: Nontender without obvious deformity. No CVA tenderness. Results - Labs CBC & Chem 7: 07/18/18 11:34 07/18/18 11:34 Laboratory Results - last 24 hr 07/17/18 07/18/18 07/18/18 17:10 08:36 11:34 WBC 11.1 H RBC 3.02 L Hgb 9.3 L Hct 27.6 L MCV 91.3 MCH 30.7 MCHC 33.7 RDW 20.6 H Plt Count 365 MPV 7.9 Neut % (Auto) 62.3 Lymph % (Auto) 25.3 Alcorn % (Auto) 9.9 H Eos % (Auto) 0.9 Baso % (Auto) 1.6 Neut # (Auto) 6.9 Lymph # (Auto) 2.8 Alcorn # (Auto) 1.1 H Eos # (Auto) 0.1 Baso # (Auto) 0.2 WBC Differential . Differential Comment Auto diff final PT INR Sodium Potassium Chloride Carbon Dioxide Anion Gap BUN Creatinine Estimated GFR POC Glucose 106 90 Random Glucose Calcium Phosphorus Magnesium Total Bilirubin AST ALT Alkaline Phosphatase Total Protein Albumin Random Vancomycin 07/18/18 07/18/18 07/18/18 11:34 11:34 12:14 WBC RBC Hgb Hct MCV MCH MCHC RDW Plt Count MPV Neut % (Auto) Lymph % (Auto) Alcorn % (Auto) Eos % (Auto) Baso % (Auto) Neut # (Auto) Lymph # (Auto) Alcorn # (Auto) Eos # (Auto) Baso # (Auto) WBC Differential Differential Comment PT 17.4 H INR 1.7 Sodium 132 L Potassium 5.9 H D Chloride 95 L Carbon Dioxide 20.9 L Anion Gap 16 H BUN 49 H Creatinine 6.11 H Estimated GFR 8 L POC Glucose 115 H Random Glucose 102 Calcium 8.5 Phosphorus 4.7 D Magnesium 2.3 Total Bilirubin 0.9 AST 15 ALT 6 L Alkaline Phosphatase 98 Total Protein 7.9 Albumin 2.0 L Random Vancomycin 16.8 Microbiology 07/14/18 01:45 Blood - Line Aerobic Blood Culture - Preliminary No growth in 4 days 07/14/18 01:45 Blood - Line Anaerobic Blood Culture - Preliminary No growth in 4 days 07/14/18 01:45 Blood - Line Aerobic Blood Culture - Preliminary No growth in 4 days 07/14/18 01:45 Blood - Line Anaerobic Blood Culture - Preliminary No growth in 4 days 07/13/18 20:53 Blood - Peripheral Aerobic Blood Culture - Final No growth in 5 days 07/13/18 20:53 Blood - Peripheral Anaerobic Blood Culture - Final No growth in 5 days 07/13/18 20:49 Blood - Peripheral Aerobic Blood Culture - Final No growth in 5 days 07/13/18 20:49 Blood - Peripheral Anaerobic Blood Culture - Final No growth in 5 days - Imaging Impressions Paracentesis Ultrasound 07/17/18 00:00 CONCLUSION: 1. Uncomplicated paracentesis. - Procedures 07/14 paracentesis Assessment and Plan - Plan 28-year-old female with infective tricuspid valve endocarditis and multiorgan dysfunction secondary to endocarditis. remains in heart failure and volume overload, and associated organ failure, including severe renal failure requiring renal replacement therapy. continue to daily pull fluid by HD. Broad spectrum abx. can leave ICU. overall prognosis is quite poor given history of leaving AMA: she will likely not survive if she continues to leave AMA. Acute hypoxemia- resolved Septic pulmonary emboli due to history of IV drug abuse Wean oxygen by nasal cannula for goal SPO2 greater than 90%, currently she is 95 % on room air. Fluid removal with dialysis, Infective tricuspid valve endocarditis Moderate tricuspid valve regurgitation Mixed septic and cardiogenic shock secondary to infective endocarditis- resolving. Sinus tachycardia Bedside echo shows large tricuspid regurgitation with moderate to severe TR With noncompliance and multiple AMA discharges, Not a candidate for valve replacement until she can complete antibiotic therapy and demonstrate medical compliance by not leaving AMA. Nephrology consulted for hemodialysis = 07/18. Discussed with infectious disease. Records pending from [facility] and appreciate infectious disease assistance. IV drug dependence watch for signs of withdrawal prn oxycodone to prevent withdraws f/u confirmatory UDS. unclear if benzos and opiates are iatrogenic from OSH or illicit. avoid long-acting sedatives Last use of IVDU per patient was before last admission here 3-4 months ago, but I don't think patient is a reliable historian and will follow up with urine drug screen which is currently pending = 07/18. Suspect degree of opioid withdrawal. Will add Suboxone today. Severe acute kidney injury requiring renal replacement therapy. Patient came with outside hospital dialysis access in place. Given risk-benefit, will continue OSH dialysis access. = 07/18 nephrology following. Appreciate assistance. Plan for dialysis access: Continue current OSH dialysis catheter until 5-7 days iv antibiotics and until cultures are negative and then replace with new-stick tunneled permacath. If cultures cannot clear, then would recommend changing to new stick percutaneous VasCath for an additional 5-7 days and continue to trend culture data before transitioning to permacath. nephrology consulted, Dr. Monge following will likely need ongoing dialysis during this admission Strict I/Os Acute anion gap metabolic acidosis- resolving. Acute lactic acidosis- resolving. Hyperkalemia- resolving. Severe acute protein calorie malnutrition Acute liver injury- resolving. Acute Hypervolemic Hyponatremia- persistent. advance diet. 1500mL fluid restriction. continue to pull volume with HD liver injury secondary to shock. Hyponatremia is secondary to volume overload from cardiogenic shock. Ascitesultrasound abdomen to review if there is no fluid for paracentesis for therapeutic treatment. = Status post repeat paracentesis on 07/17. 2.1 L. Continue to monitor. Infective Endocarditis, Tricuspid valve Septic Shock- resolving. in last admission, MSSA repeat peripheral blood cultures x 2 F/u 2 blood cultures from dialysis catheter which is in place urine cultures, sputum culture pending vanco with pharmacy dosing. cefepime 1gm iv q24h given renal insufficiency, to cover for pseudomonas re-consulted infectious disease GI Prophylaxis pepcid DVT Prophylaxis -- SCDs Heparin subcu Lines: piv OSH dialysis catheter- see above discussion for timing of replacement. Discharge Planning: Pending ID clearance.
[2018-07-18] MEDS ORDERED: Buprenorphine/Naloxone 8/2 MG Sublingual Tablet SL ONE (13:30)
[2018-07-18] MEDS ORDERED: Vancomycin Inj 1,000 MG in Sodium Chlor 0.9% Inj 250 ML IV.SIG ONE (14:00)
[2018-07-18] MEDS: ceFAZolin 2 GM Premix Inj 2 GM/100 ML BAG IV.SIG SCH (14:44)
[2018-07-18] MEDS ORDERED: Sodium Polystyrene Sulfonate/Sorbitol Liq 15 GM/60 ML UDC PO ONE (15:00)
[2018-07-19] MEDS: Heparin - SQ 10,000 UNITS/ML Vial SQ SCH ×4 (06:07→21:13)
[2018-07-19] MEDS: Insulin NovoLIN Regular Correctional Sugar Inj SQ SCH ×3 (06:11→18:32)
[2018-07-19] MEDS: ceFAZolin 2 GM Premix Inj 2 GM/100 ML BAG IV.SIG SCH (09:27)
[2018-07-19] MEDS: Polyethylene Glycol 3350 17 GM Packet PO SCH ×2 (09:29→20:07)
[2018-07-19] MEDS: Senna/Docusate Sodium 8.6/50 MG Tablet PO SCH ×2 (09:29→20:07)
[2018-07-19] MEDS: Famotidine 20 MG Tablet PO SCH ×2 (09:30→20:05)
[2018-07-19] MEDS: Heparin 10,000 UNITS/10 ML Vial (for IV use) OTHER PRN (10:56)
--- NOTE | 2018-07-19 12:32 | P.PNNP ---
Subjective Interval history: Patient seen during hemodialysis tolerating well. Reports that urinary output is increasing. <Debbie Godinez - Last Filed: 07/19/18 15:47> Physical Exam Vital signs: Vital Signs 07/18/18 14:30 07/18/18 20:00 07/18/18 21:12 Temperature 98.3 F 98.1 F Pulse Rate 110 H 119 H 118 H Respiratory Rate 19 18 20 Blood Pressure 140/95 H 132/103 H Pulse Oximetry 19 L 98 07/19/18 00:00 07/19/18 04:00 07/19/18 08:00 Temperature 97.8 F 97.8 F 97.9 F Pulse Rate 113 H 122 H 110 H Respiratory Rate 18 18 18 Blood Pressure 144/103 H 140/98 H 134/90 Pulse Oximetry 94 L 92 L 93 L Intake & Output 07/18/18 07/19/18 07/19/18 18:59 06:59 18:59 Intake Total 0 / 0 236 / 236 Output Total 100 / 100 Balance 0 / 0 136 / 136 Intake: IV 0 / 0 Vancomycin Inj 1,000 MG In NS 0 / 0 Inj 250 ML @ 250 mls/hr IV.SIG ONCE ONE Rx#:[id number] Oral 236 / 236 Output: Urine 100 / 100 Other: Date of Last Bowel Movement 07/17/18 07/17/18 Narrative: GENERAL: Appears comfortable, NAD SKIN: Warm and dry. Permacath right IJ HEAD: Normocephalic. EYES: No scleral icterus. No injection or drainage. NECK: Supple, trachea midline. No JVD or lymphadenopathy. CARDIOVASCULAR: Regular rate and rhythm without murmurs, gallops, or rubs. RESPIRATORY: Breath sounds equal bilaterally. No accessory muscle use. GASTROINTESTINAL: Abdomen soft, non-tender, nondistended. No rebound or guarding. MUSCULOSKELETAL: No cyanosis, or edema. BACK: Nontender without obvious deformity. No CVA tenderness. <Debbie Godinez - Last Filed: 07/19/18 15:47> Vital signs: Vital Signs 07/18/18 20:00 07/18/18 21:12 07/19/18 00:00 Temperature 98.1 F 97.8 F Pulse Rate 119 H 118 H 113 H Respiratory Rate 18 20 18 Blood Pressure 132/103 H 144/103 H Pulse Oximetry 98 94 L 07/19/18 04:00 07/19/18 08:00 07/19/18 16:00 Temperature 97.8 F 97.9 F Pulse Rate 122 H 110 H Respiratory Rate 18 18 Blood Pressure 140/98 H 134/90 132/100 H Pulse Oximetry 92 L 93 L Intake & Output 07/18/18 07/19/18 07/19/18 18:59 06:59 18:59 Intake Total 0 / 0 236 / 236 1000 / 1000 Output Total 100 / 100 3000 / 3000 Balance 0 / 0 136 / 136 -1999 / -1999 Intake: IV 0 / 0 Vancomycin Inj 1,000 MG In NS 0 / 0 Inj 250 ML @ 250 mls/hr IV.SIG ONCE ONE Rx#:[id number] Oral 236 / 236 1000 / 1000 Output: Urine 100 / 100 Hemodialysis Amount 3000 / 3000 Other: Date of Last Bowel Movement 07/17/18 07/17/18 <Bhargva Monge - Last Filed: 07/19/18 18:24> Assessment and Plan - Assessment (1) Acute kidney injury Code(s): N17.9 - Acute kidney failure, unspecified Status: Acute Plan: Acute kidney injury requiring hemodialysis Patient has sepsis with hx of IVDA, developed TED Has right IJ Hemodialysis catheter Plan Avoid nephrotoxins including IV contrast and gadolinium. Epogen with dialysis Strict I+O Renal diet, low potassium Monitor urinary output and electrolytes Seen during hemodialysis, low K bath, with removal of 3 liters of fluid Labs in AM (2) Endocarditis Code(s): I38 - Endocarditis, valve unspecified Status: Acute Plan: On antibiotics Renal dose as appropriate (3) Hyperkalemia Code(s): E87.5 - Hyperkalemia Status: Acute Plan: Low K bath with hemodialysis Labs in AM <Debbie Godinez - Last Filed: 07/19/18 15:47> - Assessment (1) Acute kidney injury Code(s): N17.9 - Acute kidney failure, unspecified Status: Acute Plan: Patient seen and examined, agree with above. Urine out put is low, HD to continue TTS. Watch for renal recovery. Continue antibiotics. (2) Endocarditis Code(s): I38 - Endocarditis, valve unspecified Status: Acute (3) Hyperkalemia Code(s): E87.5 - Hyperkalemia Status: Acute <Bhargav Monge - Last Filed: 07/19/18 18:24>
--- NOTE | 2018-07-19 12:51 | P.PNID ---
Subjective Remarks: She is a 28-year-old female, who was here at [facility] the first week of May and at that time she was diagnosed to have MSSA bacteremia, and highly suspicious for endocarditis. She had evidence of multiple pulmonary septic emboli, but her echocardiogram did not show any vegetation, but it did show moderate tricuspid valve regurgitation. She signed out AGAINST MEDICAL ADVICE, and it looks like she was admitted at [facility] and I do not have any details on that. She told me she was in that hospital for at least 1-1/2-2 weeks, and reportedly signed out AGAINST MEDICAL ADVICE again, and presented to [facility] and was admitted July 12, and signed out AMA again, and presented here at [facility] on July 14. I have some records from [facility], and her creatinine was elevated at that time. She had a right IJ Vas-Cath placement on July 12. Since admission here, her highest temperature has been 100.7. Her blood cultures have been negative. Her chest x-ray showing bilateral infiltrates. Her creatinine is elevated. She has had hemodialysis since admission. Patient currently is complaining of abdominal pain. She has had paracentesis yesterday , and had removal of about 2.1 L of ascites. She is complaining that it feels like her fluid has reaccumulated. She is currently afebrile. She has mild shortness of breath. She is currently on IV cefepime. Infectious disease consultation has been requested to assist with evaluation and treatment. Notes reviewed Temps ok Having HD C/O abdominal pain Antibiotics: Ancef Lines: Line no evidence of infection Past Medical History: Cholecystitis (Acute) Asthma (Acute) Endocarditis Hemodialysis patient H/O tooth extraction History of dental surgery Allergies/Adverse Reactions: Allergies sweet potato Allergy (Severe, Verified 05/29/18 19:49) Hives amoxicillin Allergy (Intermediate, Verified 05/29/18 19:49) SWELLING, HIVES penicillin G Allergy (Intermediate, Verified 05/29/18 19:49) Hives Objective Vital Signs 07/18/18 14:30 07/18/18 20:00 07/18/18 21:12 Temperature 98.3 F 98.1 F Pulse Rate 110 H 119 H 118 H Respiratory Rate 19 18 20 Blood Pressure 140/95 H 132/103 H Pulse Oximetry 19 L 98 07/19/18 00:00 07/19/18 04:00 07/19/18 08:00 Temperature 97.8 F 97.8 F 97.9 F Pulse Rate 113 H 122 H 110 H Respiratory Rate 18 18 Blood Pressure 144/103 H 140/98 H 134/90 Pulse Oximetry 94 L 92 L 93 L Intake & Output 07/18/18 07/19/18 07/19/18 18:59 06:59 18:59 Intake Total 0 / 0 236 / 236 Output Total 100 / 100 Balance 0 / 0 136 / 136 Intake: IV 0 / 0 Vancomycin Inj 1,000 MG In NS 0 / 0 Inj 250 ML @ 250 mls/hr IV.SIG ONCE ONE Rx#:[id number] Oral 236 / 236 Output: Urine 100 / 100 Other: Date of Last Bowel Movement 07/17/18 07/17/18 07/14/18 01:45 Blood - Line Aerobic Blood Culture - Final No growth in 5 days 07/14/18 01:45 Blood - Line Anaerobic Blood Culture - Final No growth in 5 days 07/14/18 01:45 Blood - Line Aerobic Blood Culture - Final No growth in 5 days 07/14/18 01:45 Blood - Line Anaerobic Blood Culture - Final No growth in 5 days 07/13/18 20:53 Blood - Peripheral Aerobic Blood Culture - Final No growth in 5 days 07/13/18 20:53 Blood - Peripheral Anaerobic Blood Culture - Final No growth in 5 days 07/13/18 20:49 Blood - Peripheral Aerobic Blood Culture - Final No growth in 5 days 07/13/18 20:49 Blood - Peripheral Anaerobic Blood Culture - Final No growth in 5 days 07/14/18 10:00 Fluid - Ascites Fluid Gram Stain - Final 07/14/18 10:00 Fluid - Ascites Fluid Body Fluid Culture - Final No growth in 72 hours (aerobically and anaerobically ) 07/14/18 05:15 Clean Catch Urine Urine Culture - Final Rebekah glabrata Lab - Hematology Results 07/18/18 11:34 WBC 11.1 H RBC 3.02 L Hgb 9.3 L Hct 27.6 L MCV 91.3 MCH 30.7 MCHC 33.7 RDW 20.6 H Plt Count 365 MPV 7.9 Neut % (Auto) 62.3 Lymph % (Auto) 25.3 [place] % (Auto) 9.9 H Eos % (Auto) 0.9 Baso % (Auto) 1.6 Neut # (Auto) 6.9 Lymph # (Auto) 2.8 [place] # (Auto) 1.1 H Eos # (Auto) 0.1 Baso # (Auto) 0.2 WBC Differential . Differential Comment Auto diff final Lab - Chemistry Results 07/17/18 07/18/18 07/18/18 17:10 08:36 11:34 Sodium 132 L Potassium 5.9 H D Chloride 95 L Carbon Dioxide 20.9 L Anion Gap 16 H BUN 49 H Creatinine 6.11 H Estimated GFR 8 L POC Glucose 106 90 Random Glucose 102 Calcium 8.5 Phosphorus 4.7 D Magnesium 2.3 Total Bilirubin 0.9 AST 15 ALT 6 L Alkaline Phosphatase 98 Total Protein 7.9 Albumin 2.0 L 07/18/18 07/18/18 07/19/18 12:14 22:59 06:08 Sodium Potassium Chloride Carbon Dioxide Anion Gap BUN Creatinine Estimated GFR POC Glucose 115 H 112 H 103 Random Glucose Calcium Phosphorus Magnesium Total Bilirubin AST ALT Alkaline Phosphatase Total Protein Albumin Imaging: ITS Impressions Abdomen/Pelvis CT 07/13/18 20:07 CONCLUSION: 1. Bibasilar patchy airspace disease and minimal pleural fluid. 2. Moderate amount of diffuse ascites as well as anasarca. 3. Nonobstructive bowel gas pattern with poor delineation of the bowel secondary to anasarca, lack of intravenous and oral contrast. 4. Cardiomegaly. Chest X-Ray 07/15/18 06:00 CONCLUSION: 1. No significant interval change with persistent patchy bilateral airspace disease. Paracentesis Ultrasound 07/17/18 00:00 CONCLUSION: 1. Uncomplicated paracentesis. Physical Exam: GENERAL: awake and alert, not in respiratory distress. SKIN: Cool and dry. No generalized rash, no ecchymoses and no evidence of embolic lesions. HEAD: Atraumatic. Normocephalic. No temporal wasting, or tenderness. EYES: [place] conjunctiva. No petechia or hemorrhage. Pupils equal, round and reactive to light. Extraocular movements full and intact. No scleral icterus. No injection or drainage. EARS, NOSE AND THROAT: Nose without bleeding or purulent nasal discharge. No sinus tenderness. Mucous membranes pink and moist. No oral lesions noted. No exudate. No oral thrush. NECK: Trachea midline. Supple and not tender, no meningeal signs CARDIOVASCULAR: Regular rate and rhythm. (+) systolic murmur in L precordium, no rub. RESPIRATORY: Clear to auscultation. Breath sounds equal bilaterally. No rales , wheezing or rhonchi ABDOMEN: Distended abdomen, diffusely tender, no guarding or rebound. Bowel sounds present and normoactive. EXTREMITIES: No clubbing, cyanosis. Has mild bilateral pedal edema. NEURO: Grossly non-focal PSYCHIATRIC: Normal affect, calm and cooperative. LINE: VINNIE bui with no evidence of infection Assessment and Plan - Plan Impression Episode of MSSA sepsis last May 2018, very suspicious for IE 2 recent [facility] [place], no details on hospitalization at [facility] Renal failure, now requiring hemodialysis Hepatitis C Rebekah in [facility] 07/14 Known IV drug use Very poor medical compliance Recommendation Await records from [facility] Continue IV Ancef for MSSA Repeat UA and C/S Follow cultures Monitor progress I will determine course of treatment once workup is completed
--- NOTE | 2018-07-19 17:35 | P.PNIM ---
Subjective Interval history: Says she is feeling better today. Reports pain is controlled. She says the oxycodone is not working. She does not want any more pain meds. Says the Suboxone is working Physical Exam Vital signs: Vital Signs 07/18/18 20:00 07/18/18 21:12 07/19/18 00:00 Temperature 98.1 F 97.8 F Pulse Rate 119 H 118 H 113 H Respiratory Rate 18 20 18 Blood Pressure 132/103 H 144/103 H Pulse Oximetry 98 94 L 07/19/18 04:00 07/19/18 08:00 07/19/18 16:00 Temperature 97.8 F 97.9 F Pulse Rate 122 H 110 H Respiratory Rate 18 18 Blood Pressure 140/98 H 134/90 132/100 H Pulse Oximetry 92 L 93 L Intake & Output 07/18/18 07/19/18 07/19/18 18:59 06:59 18:59 Intake Total 0 / 0 236 / 236 Output Total 100 / 100 3000 / 3000 Balance 0 / 0 136 / 136 -3000 / -3000 Intake: IV 0 / 0 Vancomycin Inj 1,000 MG In NS 0 / 0 Inj 250 ML @ 250 mls/hr IV.SIG ONCE ONE Rx#:[id number] Oral 236 / 236 Output: Urine 100 / 100 Hemodialysis Amount 3000 / 3000 Other: Date of Last Bowel Movement 07/17/18 07/17/18 Narrative: GENERAL: Appears comfortable, NAD SKIN: Warm and dry. Permacath right IJ HEAD: Normocephalic. EYES: No scleral icterus. No injection or drainage. NECK: Supple, trachea midline. No JVD. CARDIOVASCULAR: Regular rate and rhythm without murmurs, gallops, or rubs. RESPIRATORY: Breath sounds equal bilaterally. No accessory muscle use. GASTROINTESTINAL: Abdomen soft, non-tender, nondistended. No rebound or guarding. MUSCULOSKELETAL: No cyanosis, or edema. BACK: Nontender without obvious deformity. No CVA tenderness. Results - Labs CBC & Chem 7: 07/18/18 11:34 07/18/18 11:34 Laboratory Results - last 24 hr 07/18/18 07/19/18 07/19/18 22:59 06:08 17:24 POC Glucose 112 H 103 96 Microbiology 07/14/18 01:45 Blood - Line Aerobic Blood Culture - Final No growth in 5 days 07/14/18 01:45 Blood - Line Anaerobic Blood Culture - Final No growth in 5 days 07/14/18 01:45 Blood - Line Aerobic Blood Culture - Final No growth in 5 days 07/14/18 01:45 Blood - Line Anaerobic Blood Culture - Final No growth in 5 days - Procedures 07/14 paracentesis Assessment and Plan - Plan 28-year-old female with infective tricuspid valve endocarditis and multiorgan dysfunction secondary to endocarditis. remains in heart failure and volume overload, and associated organ failure, including severe renal failure requiring renal replacement therapy. continue to daily pull fluid by HD. Broad spectrum abx. can leave ICU. overall prognosis is quite poor given history of leaving AMA: she will likely not survive if she continues to leave AMA. Acute hypoxemia- resolved Septic pulmonary emboli due to history of IV drug abuse Wean oxygen by nasal cannula for goal SPO2 greater than 90%, currently she is 95 % on room air. Fluid removal with dialysis, Infective tricuspid valve endocarditis Moderate tricuspid valve regurgitation Mixed septic and cardiogenic shock secondary to infective endocarditis- resolving. Sinus tachycardia Bedside echo shows large tricuspid regurgitation with moderate to severe TR With noncompliance and multiple AMA discharges, Not a candidate for valve replacement until she can complete antibiotic therapy and demonstrate medical compliance by not leaving AMA. Nephrology consulted for hemodialysis = 07/19. Continue IV antibiotics as per infectious disease. Waiting for records from [facility] still.. IV drug dependence watch for signs of withdrawal prn oxycodone to prevent withdraws f/u confirmatory UDS. unclear if benzos and opiates are iatrogenic from OSH or illicit. avoid long-acting sedatives Last use of IVDU per patient was before last admission here 3-4 months ago, but I don't think patient is a reliable historian and will follow up with urine drug screen which is currently pending = 07/18. Suspect degree of opioid withdrawal. Will add Suboxone today. = 07/19. Suboxone worked very well. There is an issue with being able to order daily Suboxone in the hospital. Appears to be doing okay today. Will order single dose tomorrow if needed. Severe acute kidney injury requiring renal replacement therapy. Patient came with outside hospital dialysis access in place. Given risk-benefit, will continue OSH dialysis access. = 07/18 nephrology following. Appreciate assistance. Plan for dialysis access: Continue current OSH dialysis catheter until 5-7 days iv antibiotics and until cultures are negative and then replace with new-stick tunneled permacath. If cultures cannot clear, then would recommend changing to new stick percutaneous VasCath for an additional 5-7 days and continue to trend culture data before transitioning to permacath. nephrology consulted, Dr. Monge following will likely need ongoing dialysis during this admission Strict I/Os Acute anion gap metabolic acidosis- resolving. Acute lactic acidosis- resolving. Hyperkalemia- resolving. Severe acute protein calorie malnutrition Acute liver injury- resolving. Acute Hypervolemic Hyponatremia- persistent. advance diet. 1500mL fluid restriction. continue to pull volume with HD liver injury secondary to shock. Hyponatremia is secondary to volume overload from cardiogenic shock. Ascitesultrasound abdomen to review if there is no fluid for paracentesis for therapeutic treatment. = Status post repeat paracentesis on 07/17. 2.1 L. Continue to monitor. Infective Endocarditis, Tricuspid valve Septic Shock- resolving. in last admission, MSSA repeat peripheral blood cultures x 2 F/u 2 blood cultures from dialysis catheter which is in place urine cultures, sputum culture pending vanco with pharmacy dosing. cefepime 1gm iv q24h given renal insufficiency, to cover for pseudomonas re-consulted infectious disease = 07/19. Continue IV antibiotics for suspected endocarditis. Still have not received records from [facility]. Request refaxed today. GI Prophylaxis pepcid DVT Prophylaxis -- SCDs Heparin subcu Lines: piv OSH dialysis catheter- see above discussion for timing of replacement. Discharge Planning: Pending ID clearance.
[2018-07-19 18:24] LABS: Baso # (Auto) 0.1 th/mm3 (0.0-0.2); Baso % (Auto) 1.2 % (0.0-2.0); Eos # (Auto) 0.3 th/mm3 (0.0-0.4); Eos % (Auto) 2.1 % (0.0-4.0); Hematocrit 29.1 % (35.0-46.0); Hemoglobin 9.3 gm/dL (11.6-15.3); Lymph # (Auto) 2.7 th/mm3 (1.0-4.8); Lymph % (Auto) 21.5 % (9.0-44.0); Mean Corpuscular HGB Conc 31.8 % (32.0-36.0); Mean Corpuscular Hemoglobin 29.2 pg (27.0-34.0); Mean Corpuscular Volume 91.9 fL (80.0-100.0); Mono # (Auto) 1.4 th/mm3 (0.0-0.9); Mono % (Auto) 11.4 % (0.0-8.0); Neut % (Auto) 63.8 % (16.0-70.0); Platelet Count 281 th/mm3 (150-450); Red Blood Count 3.17 mil/mm3 (4.00-5.30); Red Cell Distribution Width 22.2 % (11.6-17.2); White Blood Count 12.5 th/mm3 (4.0-11.0)
[2018-07-19 18:33] LABS: INR 1.6 Ratio; Prothrombin Time 16.3 sec (9.8-11.6)
[2018-07-19 18:56] LABS: Albumin 1.9 g/dL (3.4-5.0); Alkaline Phosphatase 110 U/L (45-117); Anion Gap 12 meq/L (5-15); Aspartate Aminotransferase 17 U/L (15-37); Blood Urea Nitrogen 30 mg/dL (7-18); Calcium 7.7 mg/dL (8.5-10.1); Carbon Dioxide 27.4 meq/L (21.0-32.0); Chloride 98 meq/L (98-107); Glomerular Filtration Rate 13 mL/min (>89); Glucose,Random 91 mg/dL (74-106); Magnesium 2.1 mg/dL (1.5-2.5); Phosphorus 3.9 mg/dL (2.5-4.9); Sodium 137 meq/L (136-145); Total Protein 7.2 g/dL (6.4-8.2)
[2018-07-20] MEDS: Insulin NovoLIN Regular Correctional Sugar Inj SQ SCH ×4 (00:59→18:14)
[2018-07-20] MEDS: Heparin - SQ 10,000 UNITS/ML Vial SQ SCH ×3 (05:40→21:14)
[2018-07-20 07:15] LABS: Baso # (Auto) 0.1 th/mm3 (0.0-0.2); Eos # (Auto) 0.3 th/mm3 (0.0-0.4); Eos % (Auto) 2.7 % (0.0-4.0); Hematocrit 28.4 % (35.0-46.0); Hemoglobin 9.1 gm/dL (11.6-15.3); Lymph % (Auto) 25.4 % (9.0-44.0); Mean Corpuscular HGB Conc 32.2 % (32.0-36.0); Mean Corpuscular Volume 93.2 fL (80.0-100.0); Mono # (Auto) 1.3 th/mm3 (0.0-0.9); Mono % (Auto) 11.4 % (0.0-8.0); Neut # (Auto) 6.9 th/mm3 (1.8-7.7); Neut % (Auto) 59.5 % (16.0-70.0); Platelet Count 251 th/mm3 (150-450); Red Blood Count 3.05 mil/mm3 (4.00-5.30); Red Cell Distribution Width 22.7 % (11.6-17.2); White Blood Count 11.6 th/mm3 (4.0-11.0)
[2018-07-20 07:33] LABS: INR 1.5 Ratio; Prothrombin Time 15.4 sec (9.8-11.6)
[2018-07-20 07:42] LABS: Albumin 1.8 g/dL (3.4-5.0); Anion Gap 13 meq/L (5-15); Aspartate Aminotransferase 16 U/L (15-37); Blood Urea Nitrogen 38 mg/dL (7-18); Calcium 7.7 mg/dL (8.5-10.1); Carbon Dioxide 26.1 meq/L (21.0-32.0); Chloride 97 meq/L (98-107); Glomerular Filtration Rate 11 mL/min (>89); Glucose,Random 77 mg/dL (74-106); Magnesium 1.9 mg/dL (1.5-2.5); Phosphorus 3.9 mg/dL (2.5-4.9); Potassium 4.1 meq/L (3.5-5.1); Sodium 136 meq/L (136-145)
[2018-07-20 07:44] LABS: Alkaline Phosphatase 123 U/L (45-117); Vancomycin,Random 19.4 Comment
--- NOTE | 2018-07-20 09:40 | P.PNNP ---
Subjective Interval history: Reports that she is still hungry and is not getting enough fluid. Denies any shortness of breath. <Debbie Godinez - Last Filed: 07/20/18 09:34> Physical Exam Vital signs: Vital Signs 07/19/18 16:00 07/19/18 20:00 Temperature 99 F Pulse Rate 113 H Respiratory Rate 18 Blood Pressure 132/100 H 136/105 H Pulse Oximetry 94 L Intake & Output 07/19/18 07/20/18 07/20/18 18:59 06:59 18:59 Intake Total 1000 / 1000 100 / 100 Output Total 3000 / 3000 Balance -2000 / -2000 100 / 100 Weight 57.1 kg Intake: IV 100 / 100 Ancef 2 GM Premix Inj 2 gm In 100 / 100 100 ml @ 200 mls/hr IV.SIG DAILY SERGE Rx#:[id number] Oral 1000 / 1000 Output: Hemodialysis Amount 3000 / 3000 Other: Date of Last Bowel Movement 07/17/18 07/19/18 Narrative: GENERAL: Appears comfortable, NAD SKIN: Warm and dry. Permacath right IJ HEAD: Normocephalic. EYES: No scleral icterus. No injection or drainage. NECK: Supple, trachea midline. No JVD. CARDIOVASCULAR: Regular rate and rhythm. Murmur RESPIRATORY: Breath sounds equal bilaterally. No accessory muscle use. GASTROINTESTINAL: Abdomen soft, non-tender, large. No rebound or guarding. MUSCULOSKELETAL: No cyanosis, or edema. BACK: Nontender without obvious deformity. No CVA tenderness. <Debbie Godinez - Last Filed: 07/20/18 09:34> Vital signs: Vital Signs 07/20/18 08:00 07/20/18 12:00 07/20/18 14:10 Temperature 97.7 F 97.3 F L Pulse Rate 114 H 114 H 111 H Respiratory Rate 18 18 30 H Blood Pressure 135/93 H 128/81 Pulse Oximetry 95 99 07/20/18 15:46 Temperature 97.9 F Pulse Rate 110 H Respiratory Rate 18 Blood Pressure 121/87 Pulse Oximetry 95 Intake & Output 07/20/18 07/20/18 07/21/18 06:59 18:59 06:59 Intake Total 100 / 100 720 / 720 Balance 100 / 100 720 / 720 Weight 57.1 kg Intake: IV 100 / 100 Ancef 2 GM Premix Inj 2 gm In 100 / 100 100 ml @ 200 mls/hr IV.SIG DAILY SERGE Rx#:[id number] Oral 720 / 720 Other: Date of Last Bowel Movement 07/19/18 07/19/18 <Bhargav Monge - Last Filed: 07/20/18 20:19> Assessment and Plan - Assessment (1) Acute kidney injury Code(s): N17.9 - Acute kidney failure, unspecified Status: Acute Plan: Acute kidney injury requiring hemodialysis Patient has sepsis with hx of IVDA, developed TED Has right IJ Hemodialysis catheter Hemodialysis on Wednesday/, Wednesday Plan Avoid nephrotoxins including IV contrast and gadolinium. Epogen with dialysis Urinary output is improving, amount of urine is not documented, discussed with nursing. Continue renal diet, fluid restriction changed to 1500 ml/day Monitor urinary output and electrolytes Hemodialysis yesterday with removal of 3 liters of fluid Hemodialysis planned for tomorrow, will continue to watch for renal recovery (2) Endocarditis Code(s): I38 - Endocarditis, valve unspecified Status: Acute Plan: On antibiotics Renal dose as appropriate (3) Hyperkalemia Code(s): E87.5 - Hyperkalemia Status: Acute Plan: Resolved at 4.1 <Debbie Godinez - Last Filed: 07/20/18 09:34> - Assessment (1) Acute kidney injury Code(s): N17.9 - Acute kidney failure, unspecified Status: Acute Plan: Patient seen and examined, agree with above. Somr improvement in the urine out put. Watch for renal recovery, continue HD. (2) Endocarditis Code(s): I38 - Endocarditis, valve unspecified Status: Acute (3) Hyperkalemia Code(s): E87.5 - Hyperkalemia Status: Acute <Bhargav Monge - Last Filed: 07/20/18 20:19>
[2018-07-20] MEDS ORDERED: Vancomycin Inj 750 MG in Sodium Chlor 0.9% Inj 250 ML IV.SIG ONE (10:00)
[2018-07-20] MEDS: ceFAZolin 2 GM Premix Inj 2 GM/100 ML BAG IV.SIG SCH ×2 (10:02→14:24)
[2018-07-20] MEDS: Senna/Docusate Sodium 8.6/50 MG Tablet PO SCH ×2 (10:03→21:22)
[2018-07-20] MEDS: Famotidine 20 MG Tablet PO SCH ×2 (10:03→21:15)
[2018-07-20] MEDS: Polyethylene Glycol 3350 17 GM Packet PO SCH ×2 (10:03→21:21)
--- NOTE | 2018-07-20 10:56 | P.PNID ---
Subjective Remarks: She is a 28-year-old female, who was here at [facility] the first week of May and at that time she was diagnosed to have MSSA bacteremia, and highly suspicious for endocarditis. She had evidence of multiple pulmonary septic emboli, but her echocardiogram did not show any vegetation, but it did show moderate tricuspid valve regurgitation. She signed out AGAINST MEDICAL ADVICE, and it looks like she was admitted at [facility] and I do not have any details on that. She told me she was in that hospital for at least 1-1/2-2 weeks, and reportedly signed out AGAINST MEDICAL ADVICE again, and presented to [facility] and was admitted July 12, and signed out AMA again, and presented here at [facility] on July 14. I have some records from [facility], and her creatinine was elevated at that time. She had a right IJ Vas-Cath placement on July 12. Since admission here, her highest temperature has been 100.7. Her blood cultures have been negative. Her chest x-ray showing bilateral infiltrates. Her creatinine is elevated. She has had hemodialysis since admission. Patient currently is complaining of abdominal pain. She has had paracentesis yesterday , and had removal of about 2.1 L of ascites. She is complaining that it feels like her fluid has reaccumulated. She is currently afebrile. She has mild shortness of breath. She is currently on IV cefepime. Infectious disease consultation has been requested to assist with evaluation and treatment. Notes reviewed Temps ok HD done yesterday No UO All BC negative Antibiotics: Ancef Lines: Vascath - Line no evidence of infection Past Medical History: Cholecystitis (Acute) Asthma (Acute) Endocarditis Hemodialysis patient H/O tooth extraction History of dental surgery Allergies/Adverse Reactions: Allergies sweet potato Allergy (Severe, Verified 05/29/18 19:49) Hives amoxicillin Allergy (Intermediate, Verified 05/29/18 19:49) SWELLING, HIVES penicillin G Allergy (Intermediate, Verified 05/29/18 19:49) Hives Objective Vital Signs 07/19/18 16:00 07/19/18 20:00 07/20/18 08:00 Temperature 99 F 97.7 F Pulse Rate 113 H 114 H Respiratory Rate 18 18 Blood Pressure 132/100 H 136/105 H 135/93 H Pulse Oximetry 94 L 95 Intake & Output 07/19/18 07/20/18 07/20/18 18:59 06:59 18:59 Intake Total 1000 / 1000 100 / 100 Output Total 3000 / 3000 Balance -1999 / -1999 100 / 100 Weight 57.1 kg Intake: IV 100 / 100 Ancef 2 GM Premix Inj 2 gm In 100 / 100 100 ml @ 200 mls/hr IV.SIG DAILY [facility] Rx#:[id number] Oral 1000 / 1000 Output: Hemodialysis Amount 3000 / 3000 Other: Date of Last Bowel Movement 07/17/18 07/19/18 07/14/18 01:45 Blood - Line Aerobic Blood Culture - Final No growth in 5 days 07/14/18 01:45 Blood - Line Anaerobic Blood Culture - Final No growth in 5 days 07/14/18 01:45 Blood - Line Aerobic Blood Culture - Final No growth in 5 days 07/14/18 01:45 Blood - Line Anaerobic Blood Culture - Final No growth in 5 days 07/13/18 20:53 Blood - Peripheral Aerobic Blood Culture - Final No growth in 5 days 07/13/18 20:53 Blood - Peripheral Anaerobic Blood Culture - Final No growth in 5 days 07/13/18 20:49 Blood - Peripheral Aerobic Blood Culture - Final No growth in 5 days 07/13/18 20:49 Blood - Peripheral Anaerobic Blood Culture - Final No growth in 5 days 07/14/18 10:00 Fluid - Ascites Fluid Gram Stain - Final 07/14/18 10:00 Fluid - Ascites Fluid Body Fluid Culture - Final No growth in 72 hours (aerobically and anaerobically ) Lab - Hematology Results 07/18/18 07/19/18 07/20/18 11:34 17:50 05:50 WBC 11.1 H 12.5 H 11.6 H RBC 3.02 L 3.17 L 3.05 L Hgb 9.3 L 9.3 L 9.1 L Hct 27.6 L 29.1 L 28.4 L MCV 91.3 91.9 93.2 MCH 30.7 29.2 30.0 MCHC 33.7 31.8 L 32.2 RDW 20.6 H 22.2 H 22.7 H Plt Count 365 281 251 MPV 7.9 8.0 8.0 Prelim Diff (Auto) [place] Neut % (Auto) 62.3 63.8 59.5 Lymph % (Auto) 25.3 21.5 25.4 [place] % (Auto) 9.9 H 11.4 H 11.4 H Eos % (Auto) 0.9 2.1 2.7 Baso % (Auto) 1.6 1.2 1.0 Neut # (Auto) 6.9 8.0 H 6.9 Lymph # (Auto) 2.8 2.7 3.0 [place] # (Auto) 1.1 H 1.4 H 1.3 H Eos # (Auto) 0.1 0.3 0.3 Baso # (Auto) 0.2 0.1 0.1 WBC Differential . . . Differential Comment Auto diff final Auto diff final Auto diff final Lab - Chemistry Results 07/18/18 07/18/18 07/18/18 11:34 12:14 22:59 Sodium 132 L Potassium 5.9 H D Chloride 95 L Carbon Dioxide 20.9 L Anion Gap 16 H BUN 49 H Creatinine 6.11 H Estimated GFR 8 L POC Glucose 115 H 112 H Random Glucose 102 Calcium 8.5 Phosphorus 4.7 D Magnesium 2.3 Total Bilirubin 0.9 AST 15 ALT 6 L Alkaline Phosphatase 98 Total Protein 7.9 Albumin 2.0 L 07/19/18 07/19/18 07/19/18 06:08 17:24 17:50 Sodium 137 Potassium 4.0 D Chloride 98 Carbon Dioxide 27.4 Anion Gap 12 BUN 30 H Creatinine 4.13 H Estimated GFR 13 L POC Glucose 103 96 Random Glucose 91 Calcium 7.7 L D Phosphorus 3.9 Magnesium 2.1 Total Bilirubin 0.6 AST 17 ALT Less than 6 L Alkaline Phosphatase 110 Total Protein 7.2 D Albumin 1.9 L 07/20/18 07/20/18 00:56 05:50 Sodium 136 Potassium 4.1 Chloride 97 L Carbon Dioxide 26.1 Anion Gap 13 BUN 38 H Creatinine 4.62 H Estimated GFR 11 L POC Glucose 94 Random Glucose 77 Calcium 7.7 L Phosphorus 3.9 Magnesium 1.9 Total Bilirubin 0.6 AST 16 ALT Less than 6 L Alkaline Phosphatase 123 H Total Protein 7.0 Albumin 1.8 L Imaging: ITS Impressions Abdomen/Pelvis CT 07/13/18 20:07 CONCLUSION: 1. Bibasilar patchy airspace disease and minimal pleural fluid. 2. Moderate amount of diffuse ascites as well as anasarca. 3. Nonobstructive bowel gas pattern with poor delineation of the bowel secondary to anasarca, lack of intravenous and oral contrast. 4. Cardiomegaly. Chest X-Ray 07/15/18 06:00 CONCLUSION: 1. No significant interval change with persistent patchy bilateral airspace disease. Paracentesis Ultrasound 07/17/18 00:00 CONCLUSION: 1. Uncomplicated paracentesis. Physical Exam: GENERAL: awake and alert, NAD. SKIN: Cool and dry. No generalized rash, no ecchymoses and no evidence of embolic lesions. HEAD: Atraumatic. Normocephalic. No temporal wasting, or tenderness. EYES: [place] conjunctiva. No petechia or hemorrhage. Pupils equal, round and reactive to light. Extraocular movements full and intact. No scleral icterus. No injection or drainage. EARS, NOSE AND THROAT: Nose without bleeding or purulent nasal discharge. No sinus tenderness. Mucous membranes pink and moist. No oral lesions noted. NECK: Trachea midline. Supple and not tender, no meningeal signs CARDIOVASCULAR: Regular rate and rhythm. (+) systolic murmur in L precordium, no rub. RESPIRATORY: Clear to auscultation. Breath sounds equal bilaterally. No rales , wheezing or rhonchi ABDOMEN: Distended abdomen, diffusely tender, no guarding or rebound. Bowel sounds present and normoactive. EXTREMITIES: No clubbing, cyanosis. Has mild bilateral pedal edema. NEURO: Grossly non-focal PSYCHIATRIC: Normal affect, calm and cooperative. LINE: [facility] with no evidence of infection Assessment and Plan - Plan Impression Episode of MSSA sepsis last May 2018, very suspicious for IE 2 recent hospitalizations at [facility] and [facility], no details on hospitalization at [facility] Renal failure, now requiring hemodialysis Hepatitis C Rebekah in [facility] 07/14 Known IV drug use Very poor medical compliance Recommendation Await records from [facility] Continue IV Ancef for MSSA Repeat UA and C/S Follow cultures Monitor progress
--- NOTE | 2018-07-20 11:09 | P.PNIM ---
Subjective Interval history: Patient says she is upset about her diet, fluid restrictions and not being able to eat eggs. Reports pain is controlled. Physical Exam Vital signs: Vital Signs 07/19/18 16:00 07/19/18 20:00 07/20/18 08:00 Temperature 99 F 97.7 F Pulse Rate 113 H 114 H Respiratory Rate 18 18 Blood Pressure 132/100 H 136/105 H 135/93 H Pulse Oximetry 94 L 95 Intake & Output 07/19/18 07/20/18 07/20/18 18:59 06:59 18:59 Intake Total 1000 / 1000 100 / 100 Output Total 3000 / 3000 Balance -2000 / -2000 100 / 100 Weight 57.1 kg Intake: IV 100 / 100 Ancef 2 GM Premix Inj 2 gm In 100 / 100 100 ml @ 200 mls/hr IV.SIG DAILY [facility] Rx#:[id number] Oral 1000 / 1000 Output: Hemodialysis Amount 3000 / 3000 Other: Date of Last Bowel Movement 07/17/18 07/19/18 Narrative: GENERAL: Appears comfortable, NAD SKIN: Warm and dry. Permacath right IJ HEAD: Normocephalic. EYES: No scleral icterus. No injection or drainage. NECK: Supple, trachea midline. No JVD. CARDIOVASCULAR: Regular rate and rhythm. Murmur RESPIRATORY: Breath sounds equal bilaterally. No accessory muscle use. GASTROINTESTINAL: Abdomen slightly more distended with ascites than yesterday.. No rebound or guarding. MUSCULOSKELETAL: No cyanosis, or edema. BACK: Nontender without obvious deformity. No CVA tenderness. Results - Labs CBC & Chem 7: 07/20/18 05:50 07/20/18 05:50 Laboratory Results - last 24 hr 07/19/18 07/19/18 07/19/18 17:24 17:50 17:50 WBC 12.5 H RBC 3.17 L Hgb 9.3 L Hct 29.1 L MCV 91.9 MCH 29.2 MCHC 31.8 L RDW 22.2 H Plt Count 281 MPV 8.0 Prelim Diff (Auto) Neut % (Auto) 63.8 Lymph % (Auto) 21.5 [place] % (Auto) 11.4 H Eos % (Auto) 2.1 Baso % (Auto) 1.2 Neut # (Auto) 8.0 H Lymph # (Auto) 2.7 [place] # (Auto) 1.4 H Eos # (Auto) 0.3 Baso # (Auto) 0.1 WBC Differential . Differential Comment Auto diff final PT 16.3 H INR 1.6 Sodium Potassium Chloride Carbon Dioxide Anion Gap BUN Creatinine Estimated GFR POC Glucose 96 Random Glucose Calcium Phosphorus Magnesium Total Bilirubin AST ALT Alkaline Phosphatase Total Protein Albumin Random Vancomycin 07/19/18 07/20/18 07/20/18 17:50 00:56 05:50 WBC 11.6 H RBC 3.05 L Hgb 9.1 L Hct 28.4 L MCV 93.2 MCH 30.0 MCHC 32.2 RDW 22.7 H Plt Count 251 MPV 8.0 Prelim Diff (Auto) [employer] Neut % (Auto) 59.5 Lymph % (Auto) 25.4 [place] % (Auto) 11.4 H Eos % (Auto) 2.7 Baso % (Auto) 1.0 Neut # (Auto) 6.9 Lymph # (Auto) 3.0 [place] # (Auto) 1.3 H Eos # (Auto) 0.3 Baso # (Auto) 0.1 WBC Differential . Differential Comment Auto diff final PT INR Sodium 137 Potassium 4.0 D Chloride 98 Carbon Dioxide 27.4 Anion Gap 12 BUN 30 H Creatinine 4.13 H Estimated GFR 13 L POC Glucose 94 Random Glucose 91 Calcium 7.7 L D Phosphorus 3.9 Magnesium 2.1 Total Bilirubin 0.6 AST 17 ALT Less than 6 L Alkaline Phosphatase 110 Total Protein 7.2 D Albumin 1.9 L Random Vancomycin 07/20/18 07/20/18 05:50 05:50 WBC RBC Hgb Hct MCV MCH MCHC RDW Plt Count MPV Prelim Diff (Auto) Neut % (Auto) Lymph % (Auto) [place] % (Auto) Eos % (Auto) Baso % (Auto) Neut # (Auto) Lymph # (Auto) [place] # (Auto) Eos # (Auto) Baso # (Auto) WBC Differential Differential Comment PT 15.4 H INR 1.5 Sodium 136 Potassium 4.1 Chloride 97 L Carbon Dioxide 26.1 Anion Gap 13 BUN 38 H Creatinine 4.62 H Estimated GFR 11 L POC Glucose Random Glucose 77 Calcium 7.7 L Phosphorus 3.9 Magnesium 1.9 Total Bilirubin 0.6 AST 16 ALT Less than 6 L Alkaline Phosphatase 123 H Total Protein 7.0 Albumin 1.8 L Random Vancomycin 19.4 Microbiology 07/14/18 01:45 Blood - Line Aerobic Blood Culture - Final No growth in 5 days 07/14/18 01:45 Blood - Line Anaerobic Blood Culture - Final No growth in 5 days 07/14/18 01:45 Blood - Line Aerobic Blood Culture - Final No growth in 5 days 07/14/18 01:45 Blood - Line Anaerobic Blood Culture - Final No growth in 5 days - Procedures 07/14 paracentesis Assessment and Plan - Plan 28-year-old female with infective tricuspid valve endocarditis and multiorgan dysfunction secondary to endocarditis. remains in heart failure and volume overload, and associated organ failure, including severe renal failure requiring renal replacement therapy. continue to daily pull fluid by HD. Broad spectrum abx. can leave ICU. overall prognosis is quite poor given history of leaving AMA: she will likely not survive if she continues to leave AMA. Acute hypoxemia- resolved Septic pulmonary emboli due to history of IV drug abuse Wean oxygen by nasal cannula for goal SPO2 greater than 90%, currently she is 95 % on room air. Fluid removal with dialysis, Infective tricuspid valve endocarditis Moderate tricuspid valve regurgitation Mixed septic and cardiogenic shock secondary to infective endocarditis- resolving. Sinus tachycardia Bedside echo shows large tricuspid regurgitation with moderate to severe TR With noncompliance and multiple AMA discharges, Not a candidate for valve replacement until she can complete antibiotic therapy and demonstrate medical compliance by not leaving AMA. Nephrology consulted for hemodialysis = 07/20. Continue IV antibiotics as per infectious disease. Waiting for records from [facility] still.. IV drug dependence watch for signs of withdrawal prn oxycodone to prevent withdraws f/u confirmatory UDS. unclear if benzos and opiates are iatrogenic from OSH or illicit. avoid long-acting sedatives Last use of IVDU per patient was before last admission here 3-4 months ago, but I don't think patient is a reliable historian and will follow up with urine drug screen which is currently pending = 07/18. Suspect degree of opioid withdrawal. Will add Suboxone today. = 07/19. Suboxone worked very well. There is an issue with being able to order daily Suboxone in the hospital. Appears to be doing okay today. Will order single dose tomorrow if needed. = 07/20. Unable to order single dose of Suboxone. Does not appear to be in active withdrawal. Will continue to monitor. Severe acute kidney injury requiring renal replacement therapy. Patient came with outside hospital dialysis access in place. Given risk-benefit, will continue OSH dialysis access. = 07/18 nephrology following. Appreciate assistance. Plan for dialysis access: Continue current OSH dialysis catheter until 5-7 days iv antibiotics and until cultures are negative and then replace with new-stick tunneled permacath. If cultures cannot clear, then would recommend changing to new stick percutaneous VasCath for an additional 5-7 days and continue to trend culture data before transitioning to permacath. nephrology consulted, Dr. Monge following will likely need ongoing dialysis during this admission Strict I/Os Acute anion gap metabolic acidosis- resolving. Acute lactic acidosis- resolving. Hyperkalemia- resolving. Severe acute protein calorie malnutrition Acute liver injury- resolving. Acute Hypervolemic Hyponatremia- persistent. advance diet. 1500mL fluid restriction. continue to pull volume with HD liver injury secondary to shock. Hyponatremia is secondary to volume overload from cardiogenic shock. Ascitesultrasound abdomen to review if there is no fluid for paracentesis for therapeutic treatment. = Status post repeat paracentesis on 07/17. 2.1 L. Continue to monitor. = 07/20 some ascites today. Will continue fluid restriction. Stressed fluid restriction. Infective Endocarditis, Tricuspid valve Septic Shock- resolving. in last admission, MSSA repeat peripheral blood cultures x 2 F/u 2 blood cultures from dialysis catheter which is in place urine cultures, sputum culture pending vanco with pharmacy dosing. cefepime 1gm iv q24h given renal insufficiency, to cover for pseudomonas re-consulted infectious disease = 07/20. Continue IV antibiotics for suspected endocarditis. Still have not received records from [facility]. Request refaxed today. GI Prophylaxis pepcid DVT Prophylaxis -- SCDs Heparin subcu Lines: piv OSH dialysis catheter- see above discussion for timing of replacement. Discharge Planning: Pending ID clearance.
[2018-07-20 11:28] LABS: Bacteria,Urine Rare /hpf; Bilirubin,Urine Negative (Negative); Clarity,Urine Hazy (Clear); Color,Urine Yellow (Yellw/Straw); Glucose,Urine (UA) 50 mg/dL (Negative); Leukocyte Esterase,Urine Small (Negative); Mucus,Urine Few /lpf (Occasional); Nitrite,Urine Negative (Negative); Specific Gravity,Urine 1.005 (1.002-1.035); Squamous Epithelial Cell,Urine <1 /hpf (0-5)
[2018-07-21] MEDS: Insulin NovoLIN Regular Correctional Sugar Inj SQ SCH ×5 (01:41→23:42)
[2018-07-21] MEDS: Heparin - SQ 10,000 UNITS/ML Vial SQ SCH ×3 (06:45→21:16)
[2018-07-21] MEDS: ceFAZolin 2 GM Premix Inj 2 GM/100 ML BAG IV.SIG SCH (08:44)
[2018-07-21] MEDS: Famotidine 20 MG Tablet PO SCH ×2 (08:44→21:15)
[2018-07-21] MEDS: Senna/Docusate Sodium 8.6/50 MG Tablet PO SCH ×2 (08:47→21:16)
[2018-07-21] MEDS: Polyethylene Glycol 3350 17 GM Packet PO SCH ×2 (08:47→21:16)
--- NOTE | 2018-07-21 10:51 | P.PNNP ---
Subjective Interval history: No acute events overnight. Plan for hemodialysis today. <Debbie Godinez - Last Filed: 07/21/18 10:46> Physical Exam Vital signs: Vital Signs 07/20/18 12:00 07/20/18 14:10 07/20/18 15:46 Temperature 97.3 F L 97.9 F Pulse Rate 114 H 111 H 110 H Respiratory Rate 18 30 H 18 Blood Pressure 128/81 121/87 Pulse Oximetry 99 95 07/20/18 20:00 07/20/18 21:32 07/21/18 00:00 Temperature 98.1 F 97.7 F Pulse Rate 121 H 120 H 105 H Respiratory Rate 22 18 Blood Pressure 142/106 H 135/106 H Pulse Oximetry 96 98 07/21/18 08:00 Temperature 97.5 F L Pulse Rate 124 H Respiratory Rate 17 Blood Pressure 145/110 H Pulse Oximetry 96 Intake & Output 07/20/18 07/21/18 07/21/18 18:59 06:59 18:59 Intake Total 720 / 720 340 / 340 Balance 720 / 720 340 / 340 Weight 57.1 kg Intake: IV 100 / 100 Ancef 2 GM Premix Inj 2 gm In 100 / 100 100 ml @ 200 mls/hr IV.SIG DAILY [facility] Rx#:[id number] Oral 720 / 720 240 / 240 Other: Date of Last Bowel Movement 07/19/18 07/19/18 Narrative: GENERAL: Appears comfortable, NAD SKIN: Warm and dry. Permacath right IJ HEAD: Normocephalic. EYES: No scleral icterus. No injection or drainage. NECK: Supple, trachea midline. No JVD. CARDIOVASCULAR: Regular rate and rhythm. Murmur RESPIRATORY: Breath sounds equal bilaterally. No accessory muscle use. GASTROINTESTINAL: Abdomen slightly more distended with ascites than yesterday.. No rebound or guarding. MUSCULOSKELETAL: No cyanosis, or edema. BACK: Nontender without obvious deformity. No CVA tenderness. <Debbie Godinez - Last Filed: 07/21/18 10:46> Vital signs: Vital Signs 07/24/18 20:00 07/25/18 00:00 07/25/18 08:00 Temperature 99.3 F 99.3 F 98.3 F Pulse Rate 112 H 117 H 114 H Respiratory Rate 18 Blood Pressure 126/87 134/102 H 119/91 H Pulse Oximetry 99 100 93 L 07/25/18 11:45 07/25/18 12:00 07/25/18 16:00 Temperature 98.1 F 98.3 F Pulse Rate 93 H 107 H Respiratory Rate 18 Blood Pressure 130/99 H 136/82 Pulse Oximetry 93 L 97 Intake & Output 07/25/18 07/25/18 07/26/18 06:59 18:59 06:59 Intake Total 600 / 600 Balance 600 / 600 Intake: IV 100 / 100 Ancef 2 GM Premix Inj 2 gm In 100 / 100 100 ml @ 200 mls/hr IV.SIG DAILY [facility] Rx#:[id number] Oral 500 / 500 Other: # Voids 1 <Bhargav Monge - Last Filed: 07/25/18 19:22> Assessment and Plan - Assessment (1) Acute kidney injury Code(s): N17.9 - Acute kidney failure, unspecified Status: Acute Plan: Acute kidney injury requiring hemodialysis Patient has sepsis with hx of IVDA, developed TED Has right IJ Hemodialysis catheter Hemodialysis on Wednesday/, Wednesday Plan Avoid nephrotoxins including IV contrast and gadolinium. Epogen with dialysis Urinary output is improving, amount of urine is not documented, discussed with nursing. Continue renal diet, Monitor urinary output and electrolytes Hemodialysis planned for today, will remove fluid as tolerated. Will continue to watch for renal recovery, urinary output improving. (2) Endocarditis Code(s): I38 - Endocarditis, valve unspecified Status: Acute Plan: On antibiotics Renal dose as appropriate (3) Hyperkalemia Code(s): E87.5 - Hyperkalemia Status: Acute Plan: Resolved <Debbie Godinez - Last Filed: 07/21/18 10:46> - Assessment (1) Acute kidney injury Code(s): N17.9 - Acute kidney failure, unspecified Status: Acute Plan: Patient seen and examined, agree with above. HD today, watch for renal recovery. (2) Endocarditis Code(s): I38 - Endocarditis, valve unspecified Status: Acute (3) Hyperkalemia Code(s): E87.5 - Hyperkalemia Status: Acute <Bhargav Monge - Last Filed: 07/25/18 19:22>
--- NOTE | 2018-07-21 11:27 | P.PNIM ---
Subjective Interval history: Patient says she is feeling okay. Reports abdominal paracentesis site is still draining serous fluid. denies abd pain. Physical Exam Vital signs: Vital Signs 07/20/18 12:00 07/20/18 14:10 07/20/18 15:46 Temperature 97.3 F L 97.9 F Pulse Rate 114 H 111 H 110 H Respiratory Rate 18 30 H 18 Blood Pressure 128/81 121/87 Pulse Oximetry 99 95 07/20/18 20:00 07/20/18 21:32 07/21/18 00:00 Temperature 98.1 F 97.7 F Pulse Rate 121 H 120 H 105 H Respiratory Rate 19 22 18 Blood Pressure 142/106 H 135/106 H Pulse Oximetry 96 98 07/21/18 08:00 Temperature 97.5 F L Pulse Rate 124 H Respiratory Rate 17 Blood Pressure 145/110 H Pulse Oximetry 96 Intake & Output 07/20/18 07/21/18 07/21/18 18:59 06:59 18:59 Intake Total 720 / 720 340 / 340 Balance 720 / 720 340 / 340 Weight 57.1 kg Intake: IV 100 / 100 Ancef 2 GM Premix Inj 2 gm In 100 / 100 100 ml @ 200 mls/hr IV.SIG DAILY SERGE Rx#:[id number] Oral 720 / 720 240 / 240 Other: Date of Last Bowel Movement 07/19/18 07/19/18 07/21/18 Narrative: GENERAL: Appears comfortable, sitting up in bed. NAD SKIN: Warm and dry. Permacath right IJ HEAD: Normocephalic. EYES: No scleral icterus. No injection or drainage. NECK: Supple, trachea midline. No JVD. CARDIOVASCULAR: Regular rate and rhythm. Murmur RESPIRATORY: Breath sounds equal bilaterally. No accessory muscle use. GASTROINTESTINAL: Abdomen distended with ascites same as yesterday. Right lower quadrant previous drain site draining serous fluid. No surrounding erythema. No rebound or guarding. MUSCULOSKELETAL: No cyanosis, or edema. BACK: Nontender without obvious deformity. No CVA tenderness. Results - Labs CBC & Chem 7: 07/20/18 05:50 07/20/18 05:50 Laboratory Results - last 24 hr 07/20/18 07/20/18 07/21/18 10:30 12:11 06:45 POC Glucose 96 86 Urine Color Yellow Urine Clarity Hazy H Urine pH 8.0 Ur Specific [place] 1.005 Urine Protein 500 or greater Urine Glucose (UA) 50 Urine Ketones Negative Urine Occult Blood Moderate H Urine Nitrate Negative Urine Bilirubin Negative Urine Urobilinogen Less than 2 Ur Leukocyte Esterase Small H Urine RBC 1 Urine WBC 6 H Ur Squamous Epith Cells <1 Urine Bacteria Rare H Urine Mucus Few H Micro UA Comment Culture not ind Ur Microscopic Review Not Reportable Urine Culture Comments Culture not ind - Procedures 07/14 paracentesis Assessment and Plan - Plan 28-year-old female with infective tricuspid valve endocarditis and multiorgan dysfunction secondary to endocarditis. remains in heart failure and volume overload, and associated organ failure, including severe renal failure requiring renal replacement therapy. continue to daily pull fluid by HD. Broad spectrum abx. can leave ICU. overall prognosis is quite poor given history of leaving AMA: she will likely not survive if she continues to leave AMA. Acute hypoxemia- resolved Septic pulmonary emboli due to history of IV drug abuse Wean oxygen by nasal cannula for goal SPO2 greater than 90%, currently she is 95 % on room air. Fluid removal with dialysis, Infective tricuspid valve endocarditis Moderate tricuspid valve regurgitation Mixed septic and cardiogenic shock secondary to infective endocarditis- resolving. Sinus tachycardia Bedside echo shows large tricuspid regurgitation with moderate to severe TR With noncompliance and multiple AMA discharges, Not a candidate for valve replacement until she can complete antibiotic therapy and demonstrate medical compliance by not leaving AMA. Nephrology consulted for hemodialysis = 07/20. Continue IV antibiotics as per infectious disease. Waiting for records from [facility] still.. IV drug dependence watch for signs of withdrawal prn oxycodone to prevent withdraws f/u confirmatory UDS. unclear if benzos and opiates are iatrogenic from OSH or illicit. avoid long-acting sedatives Last use of IVDU per patient was before last admission here 3-4 months ago, but I don't think patient is a reliable historian and will follow up with urine drug screen which is currently pending = 07/18. Suspect degree of opioid withdrawal. Will add Suboxone today. = 07/19. Suboxone worked very well. There is an issue with being able to order daily Suboxone in the hospital. Appears to be doing okay today. Will order single dose tomorrow if needed. = 07/20. Unable to order single dose of Suboxone. Does not appear to be in active withdrawal. Will continue to monitor. Severe acute kidney injury requiring renal replacement therapy. Patient came with outside hospital dialysis access in place. Given risk-benefit, will continue OSH dialysis access. = 07/18 nephrology following. Appreciate assistance. Plan for dialysis access: Continue current OSH dialysis catheter until 5-7 days iv antibiotics and until cultures are negative and then replace with new-stick tunneled permacath. If cultures cannot clear, then would recommend changing to new stick percutaneous VasCath for an additional 5-7 days and continue to trend culture data before transitioning to permacath. nephrology consulted, Dr. Monge following will likely need ongoing dialysis during this admission Strict I/Os Acute anion gap metabolic acidosis- resolving. Acute lactic acidosis- resolving. Hyperkalemia- resolving. Severe acute protein calorie malnutrition Acute liver injury- resolving. Acute Hypervolemic Hyponatremia- persistent. advance diet. 1500mL fluid restriction. continue to pull volume with HD liver injury secondary to shock. Hyponatremia is secondary to volume overload from cardiogenic shock. Ascitesultrasound abdomen to review if there is no fluid for paracentesis for therapeutic treatment. = Status post repeat paracentesis on 07/17. 2.1 L. Continue to monitor. = 07/20 some ascites today. Will continue fluid restriction. Stressed fluid restriction. = 07/21. Still with ascites, draining from right paracentesis site. Serous. Continue fluid restriction. Fluid does not appear to be infectious. No growth on culture. BNP. Infective Endocarditis, Tricuspid valve Septic Shock- resolving. in last admission, MSSA repeat peripheral blood cultures x 2 F/u 2 blood cultures from dialysis catheter which is in place urine cultures, sputum culture pending vanco with pharmacy dosing. cefepime 1gm iv q24h given renal insufficiency, to cover for pseudomonas re-consulted infectious disease = 07/20. Continue IV antibiotics for suspected endocarditis. Still have not received records from [facility]. Request refaxed today. = 07/21. Reviewed outside records from [facility] patient with tricuspid vegetation. Continue antibiotics as per infectious disease. Appreciate assistance. GI Prophylaxis pepcid DVT Prophylaxis -- SCDs Heparin subcu Discharge Planning: Pending ID clearance.
--- NOTE | 2018-07-21 17:05 | P.PNPAL ---
Reason for Visit Reason for visit: a. To assist with evaluation and management of symptoms including: pain, anxiety, dyspnea. b. To assist medical decision maker(s) with: better understanding of current medical conditions; weighing benefits/burdens of medical treatment options; making medical treatment decisions. Subjective Subjective/Interval History: Patient seen and examined in ICU. No family at bedside. Radha Seay LCSW and nurse also present. Patient is awake and alert. She does not want to engage in conversation. Patient is agitated by the amount of people (medical staff) visiting her today. She tells me she cannot breath, getting breathing treatment during my visit. She wants me to order Ativan and/or Trazodone for her anxiety stating "I should be on it, I was on it at home." She then becomes more agitated when dialysis transporter arrives. She verbalizes frustration that she can't eat her lunch, nurse advised she could bring it with her she said "no." She became tearful and would not want to engage in further conversation so we left. Afebrile. Tachycardic. Abdominal paracentesis site still draining serous fluid. Plan for dialysis today. BNP > 5000 upon lab review following my visit. Family/Friend Interactions: No family present. Advance Directives Health Care Surrogate: Copy in medical record Advance Directives Date on File: 07/18/18 (Designation of Health Care Surrogate. ) Health Care Surrogate Name and Number: Heather Hardy, mother: [phone] ( primary [facility]) Documented care wishes:: No living will, declined completion. Significant change in goals:: FULL CODE, desires all aggressive measures. Objective Vital Signs: Vital Signs 07/20/18 20:00 07/20/18 21:32 07/21/18 00:00 Temperature 98.1 F 97.7 F Pulse Rate 121 H 120 H 105 H Respiratory Rate 19 22 18 Blood Pressure 142/106 H 135/106 H Pulse Oximetry 96 98 07/21/18 08:00 07/21/18 12:00 Temperature 97.5 F L 98.0 F Pulse Rate 124 H 118 H Respiratory Rate 17 19 Blood Pressure 145/110 H 141/108 H Pulse Oximetry 96 96 Intake & Output 07/20/18 07/21/18 07/21/18 18:59 06:59 18:59 Intake Total 720 / 720 340 / 340 Balance 720 / 720 340 / 340 Weight 57.1 kg Intake: IV 100 / 100 Ancef 2 GM Premix Inj 2 gm In 100 / 100 100 ml @ 200 mls/hr IV.SIG DAILY SERGE Rx#:[id number] Oral 720 / 720 240 / 240 Other: Date of Last Bowel Movement 07/19/18 07/19/18 07/21/18 Physical Exam: CONSTITUTIONAL/GENERAL: This is a critically ill patient. TUBES/LINES/DRAINS: NC, Right IJ vas-cath. SKIN: Pale. Ecchymoses on upper extremities. Wound reported on coccyx 1x1cm, not visualized by me. No wounds seen anteriorly. Skin temperature appropriate. Not diaphoretic. CARDIOVASCULAR: tachycardic, systolic murmur. RESPIRATORY/CHEST: Unlabored respirations. Few scattered course breath sounds. GASTROINTESTINAL: Abdomen soft, mildly tender, distended. + ascites. No guarding. Serous drainage from old paracentesis site. Bowel sounds present. GENITOURINARY: Without palpable bladder distension. MUSCULOSKELETAL: Extremities with 2+ pitting edema. NEUROLOGICAL: Awake and alert. Cognitively sharp. Moves all extremities. PSYCHIATRIC: Agitated. Diagnostic Tests Laboratory: Laboratory Results - last 72 hr 07/18/18 07/19/18 07/19/18 22:59 06:08 17:24 WBC RBC Hgb Hct MCV MCH MCHC RDW Plt Count MPV Prelim Diff (Auto) Neut % (Auto) Lymph % (Auto) [place] % (Auto) Eos % (Auto) Baso % (Auto) Neut # (Auto) Lymph # (Auto) [place] # (Auto) Eos # (Auto) Baso # (Auto) WBC Differential Differential Comment PT INR Sodium Potassium Chloride Carbon Dioxide Anion Gap BUN Creatinine Estimated GFR POC Glucose 112 H 103 96 Random Glucose Calcium Phosphorus Magnesium Total Bilirubin AST ALT Alkaline Phosphatase B-Natriuretic Peptide Total Protein Albumin Urine Color Urine Clarity Urine pH Ur Specific [place] Urine Protein Urine Glucose (UA) Urine Ketones Urine Occult Blood Urine Nitrate Urine Bilirubin Urine Urobilinogen Ur Leukocyte Esterase Urine RBC Urine WBC Ur Squamous Epith Cells Urine Bacteria Urine Mucus Micro UA Comment Ur Microscopic Review Urine Culture Comments Random Vancomycin 07/19/18 07/19/18 07/19/18 17:50 17:50 17:50 WBC 12.5 H RBC 3.17 L Hgb 9.3 L Hct 29.1 L MCV 91.9 MCH 29.2 MCHC 31.8 L RDW 22.2 H Plt Count 281 MPV 8.0 Prelim Diff (Auto) Neut % (Auto) 63.8 Lymph % (Auto) 21.5 [place] % (Auto) 11.4 H Eos % (Auto) 2.1 Baso % (Auto) 1.2 Neut # (Auto) 8.0 H Lymph # (Auto) 2.7 [place] # (Auto) 1.4 H Eos # (Auto) 0.3 Baso # (Auto) 0.1 WBC Differential . Differential Comment Auto diff final PT 16.3 H INR 1.6 Sodium 137 Potassium 4.0 D Chloride 98 Carbon Dioxide 27.4 Anion Gap 12 BUN 30 H Creatinine 4.13 H Estimated GFR 13 L POC Glucose Random Glucose 91 Calcium 7.7 L D Phosphorus 3.9 Magnesium 2.1 Total Bilirubin 0.6 AST 17 ALT Less than 6 L Alkaline Phosphatase 110 B-Natriuretic Peptide Total Protein 7.2 D Albumin 1.9 L Urine Color Urine Clarity Urine pH Ur Specific [place] Urine Protein Urine Glucose (UA) Urine Ketones Urine Occult Blood Urine Nitrate Urine Bilirubin Urine Urobilinogen Ur Leukocyte Esterase Urine RBC Urine WBC Ur Squamous Epith Cells Urine Bacteria Urine Mucus Micro UA Comment Ur Microscopic Review Urine Culture Comments Random Vancomycin 07/20/18 07/20/18 07/20/18 00:56 05:50 05:50 WBC 11.6 H RBC 3.05 L Hgb 9.1 L Hct 28.4 L MCV 93.2 MCH 30.0 MCHC 32.2 RDW 22.7 H Plt Count 251 MPV 8.0 Prelim Diff (Auto) Box Sealing Machine Operator Neut % (Auto) 59.5 Lymph % (Auto) 25.4 [place] % (Auto) 11.4 H Eos % (Auto) 2.7 Baso % (Auto) 1.0 Neut # (Auto) 6.9 Lymph # (Auto) 3.0 [place] # (Auto) 1.3 H Eos # (Auto) 0.3 Baso # (Auto) 0.1 WBC Differential . Differential Comment Auto diff final PT 15.4 H INR 1.5 Sodium Potassium Chloride Carbon Dioxide Anion Gap BUN Creatinine Estimated GFR POC Glucose 94 Random Glucose Calcium Phosphorus Magnesium Total Bilirubin AST ALT Alkaline Phosphatase B-Natriuretic Peptide Total Protein Albumin Urine Color Urine Clarity Urine pH Ur Specific [place] Urine Protein Urine Glucose (UA) Urine Ketones Urine Occult Blood Urine Nitrate Urine Bilirubin Urine Urobilinogen Ur Leukocyte Esterase Urine RBC Urine WBC Ur Squamous Epith Cells Urine Bacteria Urine Mucus Micro UA Comment Ur Microscopic Review Urine Culture Comments Random Vancomycin 07/20/18 07/20/18 07/20/18 05:50 10:30 12:11 WBC RBC Hgb Hct MCV MCH MCHC RDW Plt Count MPV Prelim Diff (Auto) Neut % (Auto) Lymph % (Auto) [place] % (Auto) Eos % (Auto) Baso % (Auto) Neut # (Auto) Lymph # (Auto) [place] # (Auto) Eos # (Auto) Baso # (Auto) WBC Differential Differential Comment PT INR Sodium 136 Potassium 4.1 Chloride 97 L Carbon Dioxide 26.1 Anion Gap 13 BUN 38 H Creatinine 4.62 H Estimated GFR 11 L POC Glucose 96 Random Glucose 77 Calcium 7.7 L Phosphorus 3.9 Magnesium 1.9 Total Bilirubin 0.6 AST 16 ALT Less than 6 L Alkaline Phosphatase 123 H B-Natriuretic Peptide Total Protein 7.0 Albumin 1.8 L Urine Color Yellow Urine Clarity Hazy H Urine pH 8.0 Ur Specific [place] 1.005 Urine Protein 500 or greater Urine Glucose (UA) 50 Urine Ketones Negative Urine Occult Blood Moderate H Urine Nitrate Negative Urine Bilirubin Negative Urine Urobilinogen Less than 2 Ur Leukocyte Esterase Small H Urine RBC 1 Urine WBC 6 H Ur Squamous Epith Cells <1 Urine Bacteria Rare H Urine Mucus Few H Micro UA Comment Culture not ind Ur Microscopic Review Not Reportable Urine Culture Comments Culture not ind Random Vancomycin 19.4 07/21/18 07/21/18 06:45 14:00 WBC RBC Hgb Hct MCV MCH MCHC RDW Plt Count MPV Prelim Diff (Auto) Neut % (Auto) Lymph % (Auto) [place] % (Auto) Eos % (Auto) Baso % (Auto) Neut # (Auto) Lymph # (Auto) [place] # (Auto) Eos # (Auto) Baso # (Auto) WBC Differential Differential Comment PT INR Sodium Potassium Chloride Carbon Dioxide Anion Gap BUN Creatinine Estimated GFR POC Glucose 86 Random Glucose Calcium Phosphorus Magnesium Total Bilirubin AST ALT Alkaline Phosphatase B-Natriuretic Peptide Greater than 5000 H Total Protein Albumin Urine Color Urine Clarity Urine pH Ur Specific [place] Urine Protein Urine Glucose (UA) Urine Ketones Urine Occult Blood Urine Nitrate Urine Bilirubin Urine Urobilinogen Ur Leukocyte Esterase Urine RBC Urine WBC Ur Squamous Epith Cells Urine Bacteria Urine Mucus Micro UA Comment Ur Microscopic Review Urine Culture Comments Random Vancomycin Result Diagrams: 07/20/18 05:50 07/20/18 05:50 Microbiology: Microbiology 07/14/18 01:45 Aerobic Blood Culture - Final Blood - Line No growth in 5 days Anaerobic Blood Culture - Final No growth in 5 days 07/14/18 01:45 Aerobic Blood Culture - Final Blood - Line No growth in 5 days Anaerobic Blood Culture - Final No growth in 5 days Imaging: Abdomen/Pelvis CT 07/13/18 20:07 CONCLUSION: 1. Bibasilar patchy airspace disease and minimal pleural fluid. 2. Moderate amount of diffuse ascites as well as anasarca. 3. Nonobstructive bowel gas pattern with poor delineation of the bowel secondary to anasarca, lack of intravenous and oral contrast. 4. Cardiomegaly. Chest X-Ray 07/15/18 06:00 CONCLUSION: 1. No significant interval change with persistent patchy bilateral airspace disease. Paracentesis Ultrasound 07/17/18 00:00 CONCLUSION: 1. Uncomplicated paracentesis. Procedures: * 07/17/18 - paracentesis * 07/14/18 - paracentesis * right IJ vas-cath placed at on 07/12/18 Assessment and Plan - Disease Oriented Problem List (1) Sepsis (2) IV drug abuse (3) Endocarditis (4) End-stage renal disease (ESRD) (5) Hyperkalemia (6) Acidosis, lactic - Symptom Scale (1) Pain 0-10 Scale: Unable to quantify (2) Shortness of breath 0-10 Scale: Unable to quantify Pertinent Non-Medical Issues: Psychosocial: Single. 2 sons, ages 3 & 4. Supported by her mother and step- father (she does not have a great relationship with him). Has 3 sisters. Spiritual:None. Legal: Patient is capacitated to make her own health care decisions. No written advance directives. Single. Father . 2 sons, ages 3 & 4. According to [place] statutes, health care proxy decision making falls to a parent. Ethical issues impacting care: No known concerns at this time. Important Contacts: * Heather Hardy, mother/ HCS: [phone] Prognosis: Per newsstand vendor Dr. Hussein on 07/14/18: "28-year-old female with infective tricuspid valve endocarditis and multiorgan dysfunction secondary to endocarditis as well as mixed septic and cardiogenic shock. We are obtaining records from outside hospital. It is unclear what her clinical course has been , but she does clearly appear to be in acute renal failure as well as volume overload, heart failure secondary to valvulopathy, and septic shock. I think her dialysis catheter should be exchanged, but in the interest of taking care of her medical needs acutely, we will keep this line for now. I have had a long discussion with the patient which I explained that every time she leaves AGAINST MEDICAL ADVICE and returns she is sick her with new and worsening shock and worsening organ failure. In particular, her readmission today versus last admission in May she is far more critically ill and more deconditioned. I explained that I am very worried that if she leaves AGAINST MEDICAL ADVICE again , she will likely of this illness. I have consulted palliative care to ask their assistance in discussing with the patient and her overall goals of care, particularly if she continues to leave AGAINST MEDICAL ADVICE. For now she is very critically ill with multiorgan failure." Code Status: Full Code Plan: * Patient is currently capacitated to make her own health care decisions. No written advance directives. Single. Father . 2 sons, ages 3 & 4, she does not have custody. Completed designation of Health Care Surrogate paperwork on 07/18/18 naming her mother, Heather Hardy as primary HCS and sister Aline Jamil as alternate HCS. * FULL CODE * Goals: Patient desires all aggressive measures. * Will ask Radha Seay LCSW to complete written advanced directives during next visit. She verbalizes she wants her mother to serve as HCS and sister, Aline as alternate. * SYMPTOMS: Pain: reports pain in chest, back, legs and neck. Has oxycodone 5mg PO every 4 hours PRN 1-5, none given and hydromorphone 0.25mg PRN every 1 hours PRN pain 8-10, one dose given with reported relief of pain. No new medication recommendations at this time. Shortness of breath: due to endocarditis, asthma, CHF (BNP > 5000), going for HD. Anxiety: secondary to dyspnea: will defir anxiety management to attending. * Palliative care will continue to follow to assist with symptom management and further clarification of medical treatment goals. . Attestation Attestation: To help prompt me to consider important information that might be impacting today's encounter and assessment, information from prior notes written by myself or my colleagues may have been "brought forward" into today's note. My signature on this note, however, is an attestation that I personally performed the exam, history, and/or decision-making noted today, and, unless otherwise indicated, the interactions with patient, family, and staff as well as the review of records all occurred today. I also attest that the listed assessment and stated plan reflect my best clinical judgment today based on the combination of historical information, prior notes, and today's exam/ interactions. When time spent is documented, it refers only to time spent today by the signer, or if indicated, combined time spent today by collaborating physician/nurse practitioner.
[2018-07-21] MEDS: Heparin 10,000 UNITS/10 ML Vial (for IV use) OTHER PRN (17:10)
[2018-07-22] MEDS: Insulin NovoLIN Regular Correctional Sugar Inj SQ SCH ×3 (05:30→18:35)
[2018-07-22] MEDS: Heparin - SQ 10,000 UNITS/ML Vial SQ SCH ×2 (05:30→14:32)
[2018-07-22] MEDS: ceFAZolin 2 GM Premix Inj 2 GM/100 ML BAG IV.SIG SCH (09:54)
[2018-07-22] MEDS: Famotidine 20 MG Tablet PO SCH (09:55)
[2018-07-22] MEDS: Polyethylene Glycol 3350 17 GM Packet PO SCH (09:55)
[2018-07-22] MEDS: Senna/Docusate Sodium 8.6/50 MG Tablet PO SCH (09:56)
--- NOTE | 2018-07-22 10:36 | P.PNNP ---
Subjective Interval history: Resting on right side. Reports feeling hot. Hemodialysis yesterday, tolerated well. <Debbie Godinez - Last Filed: 07/22/18 10:33> Physical Exam Vital signs: Vital Signs 07/21/18 12:00 07/21/18 17:57 07/21/18 19:43 Temperature 98.0 F 98.1 F 98.1 F Pulse Rate 118 H 115 H 119 H Respiratory Rate 19 18 21 Blood Pressure 141/108 H 137/106 H 111/70 Pulse Oximetry 96 94 L 96 07/22/18 00:00 07/22/18 04:00 07/22/18 08:00 Temperature 99.1 F 97.8 F 98.0 F Pulse Rate 121 H 115 H 116 H Respiratory Rate 20 20 19 Blood Pressure 139/93 H 121/102 H 127/91 H Pulse Oximetry 96 96 94 L Intake & Output 07/21/18 07/22/18 07/22/18 18:59 06:59 18:59 Intake Total 340 / 340 580 / 580 Output Total 4150 / 4150 Balance -3810 / -3810 580 / 580 Weight 58.2 kg Intake: IV 100 / 100 Ancef 2 GM Premix Inj 2 gm In 100 / 100 100 ml @ 200 mls/hr IV.SIG DAILY SERGE Rx#:[id number] Oral 340 / 340 480 / 480 Output: Urine 150 / 150 Hemodialysis Amount 4000 / 4000 Other: # Voids 2 Date of Last Bowel Movement 07/21/18 07/21/18 # Bowel Movements 0 Narrative: GENERAL: Appears comfortable, sitting up in bed. NAD SKIN: Warm and dry. Permacath right IJ HEAD: Normocephalic. EYES: No scleral icterus. No injection or drainage. NECK: Supple, trachea midline. No JVD. CARDIOVASCULAR: Regular rate and rhythm. Murmur RESPIRATORY: Breath sounds equal bilaterally. No accessory muscle use. GASTROINTESTINAL: Abdomen distended. MUSCULOSKELETAL: No cyanosis, or edema. BACK: Nontender without obvious deformity. No CVA tenderness. <Debbie Godinez - Last Filed: 07/22/18 10:33> Vital signs: Vital Signs 07/24/18 20:00 07/25/18 00:00 07/25/18 08:00 Temperature 99.3 F 99.3 F 98.3 F Pulse Rate 112 H 117 H 114 H Respiratory Rate 20 20 18 Blood Pressure 126/87 134/102 H 119/91 H Pulse Oximetry 99 100 93 L 07/25/18 11:45 07/25/18 12:00 07/25/18 16:00 Temperature 98.1 F 98.3 F Pulse Rate 93 H 107 H Respiratory Rate 16 18 18 Blood Pressure 130/99 H 136/82 Pulse Oximetry 93 L 97 Intake & Output 07/25/18 07/25/18 07/26/18 06:59 18:59 06:59 Intake Total 600 / 600 Balance 600 / 600 Intake: IV 100 / 100 Ancef 2 GM Premix Inj 2 gm In 100 / 100 100 ml @ 200 mls/hr IV.SIG DAILY SERGE Rx#:[id number] Oral 500 / 500 Other: # Voids 1 <Bhargav Monge - Last Filed: 07/25/18 19:46> Assessment and Plan - Assessment (1) Acute kidney injury Code(s): N17.9 - Acute kidney failure, unspecified Status: Acute Plan: Acute kidney injury requiring hemodialysis Patient has sepsis with hx of IVDA, developed TED Has right IJ Hemodialysis catheter Hemodialysis on Wednesday/, Wednesday Last creatinine at 4.62, urinary output improving at 150ml/24 hours. Plan Avoid nephrotoxins including IV contrast and gadolinium. Epogen with dialysis Continue renal diet, Monitor urinary output and electrolytes Hemodialysis yesterday with removal of 4 liters of fluid Will continue to watch for renal recovery Labs in AM (2) Endocarditis Code(s): I38 - Endocarditis, valve unspecified Status: Acute Plan: On antibiotics Renal dose as appropriate (3) Hyperkalemia Code(s): E87.5 - Hyperkalemia Status: Acute Plan: Resolved <Debbie Godinez - Last Filed: 07/22/18 10:33> - Assessment (1) Acute kidney injury Code(s): N17.9 - Acute kidney failure, unspecified Status: Acute Plan: Patient seen and examined, agree with above. HD done yesterday. Watch for renal recovery. (2) Endocarditis Code(s): I38 - Endocarditis, valve unspecified Status: Acute (3) Hyperkalemia Code(s): E87.5 - Hyperkalemia Status: Acute <Jumani,Keke Q - Last Filed: 07/25/18 19:46>
--- NOTE | 2018-07-22 11:09 | P.PNID ---
Subjective Remarks: She is a 28-year-old female, who was here at [facility] the first week of May and at that time she was diagnosed to have MSSA bacteremia, and highly suspicious for endocarditis. She had evidence of multiple pulmonary septic emboli, but her echocardiogram did not show any vegetation, but it did show moderate tricuspid valve regurgitation. She signed out AGAINST MEDICAL ADVICE, and it looks like she was admitted at [facility] and I do not have any details on that. She told me she was in that hospital for at least 1-1/2-2 weeks, and reportedly signed out AGAINST MEDICAL ADVICE again, and presented to [facility] and was admitted July 12, and signed out AMA again, and presented here at [facility] on July 14. I have some records from [facility], and her creatinine was elevated at that time. She had a right IJ Vas-Cath placement on July 12. Since admission here, her highest temperature has been 100.7. Her blood cultures have been negative. Her chest x-ray showing bilateral infiltrates. Her creatinine is elevated. She has had hemodialysis since admission. Patient currently is complaining of abdominal pain. She has had paracentesis yesterday , and had removal of about 2.1 L of ascites. She is complaining that it feels like her fluid has reaccumulated. She is currently afebrile. She has mild shortness of breath. She is currently on IV cefepime. Infectious disease consultation has been requested to assist with evaluation and treatment. Notes reviewed Temps ok HD done yesterday Records reviewed from [facility] All BC negative Antibiotics: Ancef Lines: Vascath - Line no evidence of infection Past Medical History: Cholecystitis (Acute) Asthma (Acute) Endocarditis Hemodialysis patient H/O tooth extraction History of dental surgery Allergies/Adverse Reactions: Allergies sweet potato Allergy (Severe, Verified 05/29/18 19:49) Hives amoxicillin Allergy (Intermediate, Verified 05/29/18 19:49) SWELLING, HIVES penicillin G Allergy (Intermediate, Verified 05/29/18 19:49) Hives Objective Vital Signs 07/21/18 12:00 07/21/18 17:57 07/21/18 19:43 Temperature 98.0 F 98.1 F 98.1 F Pulse Rate 118 H 115 H 119 H Respiratory Rate 18 21 Blood Pressure 141/108 H 137/106 H 111/70 Pulse Oximetry 96 94 L 96 07/22/18 00:00 07/22/18 04:00 07/22/18 08:00 Temperature 99.1 F 97.8 F 98.0 F Pulse Rate 121 H 115 H 116 H Respiratory Rate 20 20 19 Blood Pressure 139/93 H 121/102 H 127/91 H Pulse Oximetry 96 96 94 L Intake & Output 07/21/18 07/22/18 07/22/18 18:59 06:59 18:59 Intake Total 340 / 340 580 / 580 Output Total 4150 / 4150 Balance -3810 / -3810 580 / 580 Weight 58.2 kg Intake: IV 100 / 100 Ancef 2 GM Premix Inj 2 gm In 100 / 100 100 ml @ 200 mls/hr IV.SIG DAILY SERGE Rx#:[id number] Oral 340 / 340 480 / 480 Output: Urine 150 / 150 Hemodialysis Amount 4000 / 4000 Other: # Voids 2 Date of Last Bowel Movement 07/21/18 07/21/18 # Bowel Movements 0 07/14/18 01:45 Blood - Line Aerobic Blood Culture - Final No growth in 5 days 07/14/18 01:45 Blood - Line Anaerobic Blood Culture - Final No growth in 5 days 07/14/18 01:45 Blood - Line Aerobic Blood Culture - Final No growth in 5 days 07/14/18 01:45 Blood - Line Anaerobic Blood Culture - Final No growth in 5 days Lab - Chemistry Results 07/20/18 07/21/18 07/21/18 12:11 06:45 14:00 POC Glucose 96 86 B-Natriuretic Peptide Greater than 5000 H 07/21/18 17:05 POC Glucose 118 H B-Natriuretic Peptide Imaging: ITS Impressions Abdomen/Pelvis CT 07/13/18 20:07 CONCLUSION: 1. Bibasilar patchy airspace disease and minimal pleural fluid. 2. Moderate amount of diffuse ascites as well as anasarca. 3. Nonobstructive bowel gas pattern with poor delineation of the bowel secondary to anasarca, lack of intravenous and oral contrast. 4. Cardiomegaly. Chest X-Ray 07/15/18 06:00 CONCLUSION: 1. No significant interval change with persistent patchy bilateral airspace disease. Paracentesis Ultrasound 07/17/18 00:00 CONCLUSION: 1. Uncomplicated paracentesis. Physical Exam: GENERAL: awake and alert, NAD. SKIN: Cool and dry. No generalized rash HEAD: Atraumatic. Normocephalic. No temporal wasting, or tenderness. EYES: [place] conjunctiva. No petechia or hemorrhage. No scleral icterus. No injection or drainage. EARS, NOSE AND THROAT: Mucous membranes pink and moist. No oral lesions noted. NECK: Trachea midline. Supple and not tender, no meningeal signs CARDIOVASCULAR: Regular rate and rhythm. (+) systolic murmur in L precordium, no rub. RESPIRATORY: Clear to auscultation. Breath sounds equal bilaterally. No rales , wheezing or rhonchi ABDOMEN: Distended abdomen, diffusely tender, no guarding or rebound. Bowel sounds present and normoactive. EXTREMITIES: No clubbing, cyanosis. Has mild bilateral pedal edema. NEURO: Grossly non-focal PSYCHIATRIC: Normal affect, calm and cooperative. LINE: [facility] with no evidence of infection Assessment and Plan - Plan Impression Episode of MSSA sepsis last May 2018, very suspicious for IE 2 recent hospitalizations at [facility] and [facility], no details on hospitalization at [facility] Renal failure, now requiring hemodialysis Hepatitis C Rebekah in [facility] 07/14 Known IV drug use Very poor medical compliance Recommendationl Continue IV Ancef for MSSA Follow cultures Monitor progress
--- NOTE | 2018-07-22 14:20 | P.PNIM ---
Subjective Interval history: Patient reports right wisdom tooth pain Physical Exam Vital signs: Vital Signs 07/21/18 17:57 07/21/18 19:43 07/22/18 00:00 Temperature 98.1 F 98.1 F 99.1 F Pulse Rate 115 H 119 H 121 H Respiratory Rate 18 21 20 Blood Pressure 137/106 H 111/70 139/93 H Pulse Oximetry 94 L 96 96 07/22/18 04:00 07/22/18 08:00 07/22/18 12:00 Temperature 97.8 F 98.0 F 97.8 F Pulse Rate 115 H 116 H 115 H Respiratory Rate 20 19 17 Blood Pressure 121/102 H 127/91 H 131/91 H Pulse Oximetry 96 94 L 95 Intake & Output 07/21/18 07/22/18 07/22/18 18:59 06:59 18:59 Intake Total 340 / 340 580 / 580 Output Total 4150 / 4150 Balance -3810 / -3810 580 / 580 Weight 58.2 kg Intake: IV 100 / 100 Ancef 2 GM Premix Inj 2 gm In 100 / 100 100 ml @ 200 mls/hr IV.SIG DAILY SERGE Rx#:[id number] Oral 340 / 340 480 / 480 Output: Urine 150 / 150 Hemodialysis Amount 4000 / 4000 Other: # Voids 2 Date of Last Bowel Movement 07/21/18 07/21/18 # Bowel Movements 0 Narrative: GENERAL: Appears comfortable, sitting up in bed. NAD SKIN: Warm and dry. Permacath right IJ HEAD: Normocephalic. EYES: No scleral icterus. No injection or drainage. NECK: Supple, trachea midline. No JVD. Patient does have poor dentition, however no abscess noted. No pronator drift. no meningeal signs CARDIOVASCULAR: Regular rate and rhythm. Murmur RESPIRATORY: Breath sounds equal bilaterally. No accessory muscle use. GASTROINTESTINAL: Abdomen distended. MUSCULOSKELETAL: No cyanosis, or edema. BACK: Nontender without obvious deformity. No CVA tenderness. Results - Labs CBC & Chem 7: 07/20/18 05:50 07/20/18 05:50 Laboratory Results - last 24 hr 07/14/18 07/21/18 07/21/18 20:15 14:00 17:05 POC Glucose 118 H B-Natriuretic Peptide Greater than 5000 H Ur Opiates Confirm Positive A Ur Buprenorphine Negative Ur Heroin Screen Negative Urine Oxycodone Negative Ur Methadone Negative U Hydromorphone Confirm Positive A Urine Fentanyl Negative Urine Gabapentin Positive A Ur Phencyclidine (PCP) Negative Urine MDPV Negative Ur MDMA & Metabolites Negative U Benzodiazepine Confm Positive A Ur Synth THC (K2) Negative - Procedures 07/14 paracentesis Assessment and Plan - Plan 28-year-old female with infective tricuspid valve endocarditis and multiorgan dysfunction secondary to endocarditis. remains in heart failure and volume overload, and associated organ failure, including severe renal failure requiring renal replacement therapy. continue to daily pull fluid by HD. Broad spectrum abx. can leave ICU. overall prognosis is quite poor given history of leaving AMA: she will likely not survive if she continues to leave AMA. Acute hypoxemia- resolved Septic pulmonary emboli due to history of IV drug abuse Wean oxygen by nasal cannula for goal SPO2 greater than 90%, currently she is 95 % on room air. Fluid removal with dialysis, Infective tricuspid valve endocarditis Moderate tricuspid valve regurgitation Mixed septic and cardiogenic shock secondary to infective endocarditis- resolving. Sinus tachycardia Bedside echo shows large tricuspid regurgitation with moderate to severe TR With noncompliance and multiple AMA discharges, Not a candidate for valve replacement until she can complete antibiotic therapy and demonstrate medical compliance by not leaving AMA. Nephrology consulted for hemodialysis = 07/20. Continue IV antibiotics as per infectious disease. Waiting for records from [facility] still.. IV drug dependence watch for signs of withdrawal prn oxycodone to prevent withdraws f/u confirmatory UDS. unclear if benzos and opiates are iatrogenic from OSH or illicit. avoid long-acting sedatives Last use of IVDU per patient was before last admission here 3-4 months ago, but I don't think patient is a reliable historian and will follow up with urine drug screen which is currently pending = 07/18. Suspect degree of opioid withdrawal. Will add Suboxone today. = 07/19. Suboxone worked very well. There is an issue with being able to order daily Suboxone in the hospital. Appears to be doing okay today. Will order single dose tomorrow if needed. = 07/20. Unable to order single dose of Suboxone. Does not appear to be in active withdrawal. Will continue to monitor. Severe acute kidney injury requiring renal replacement therapy. Patient came with outside hospital dialysis access in place. Given risk-benefit, will continue OSH dialysis access. = 07/18 nephrology following. Appreciate assistance. Plan for dialysis access: Continue current OSH dialysis catheter until 5-7 days iv antibiotics and until cultures are negative and then replace with new-stick tunneled permacath. If cultures cannot clear, then would recommend changing to new stick percutaneous VasCath for an additional 5-7 days and continue to trend culture data before transitioning to permacath. nephrology consulted, Dr. Monge following will likely need ongoing dialysis during this admission Strict I/Os Acute anion gap metabolic acidosis- resolving. Acute lactic acidosis- resolving. Hyperkalemia- resolving. Severe acute protein calorie malnutrition Acute liver injury- resolving. Acute Hypervolemic Hyponatremia- persistent. advance diet. 1500mL fluid restriction. continue to pull volume with HD liver injury secondary to shock. Hyponatremia is secondary to volume overload from cardiogenic shock. Ascitesultrasound abdomen to review if there is no fluid for paracentesis for therapeutic treatment. = Status post repeat paracentesis on 07/17. 2.1 L. Continue to monitor. = 07/20 some ascites today. Will continue fluid restriction. Stressed fluid restriction. = 07/21. Still with ascites, draining from right paracentesis site. Serous. Continue fluid restriction. Fluid does not appear to be infectious. No growth on culture. BNP. = 07/22. //Suspected CHF exacerbation //tricuspid regurgitation. Seen on outside echo BNP above 5000, obviously affected by renal failure. Ascites is likely secondary CHF we will discuss with nephrology. Hopefully can increase fluid removed in dialysis. Infective Endocarditis, Tricuspid valve Septic Shock- resolving. in last admission, MSSA repeat peripheral blood cultures x 2 F/u 2 blood cultures from dialysis catheter which is in place urine cultures, sputum culture pending vanco with pharmacy dosing. cefepime 1gm iv q24h given renal insufficiency, to cover for pseudomonas re-consulted infectious disease = 07/20. Continue IV antibiotics for suspected endocarditis. Still have not received records from [facility]. Request refaxed today. = Reviewed outside records from [facility] patient with tricuspid vegetation. Continue antibiotics as per infectious disease. Appreciate assistance. GI Prophylaxis pepcid DVT Prophylaxis -- SCDs Heparin subcu Discharge Planning: Pending ID clearance.
[2018-07-22] MEDS: FLUoxetine 10 MG Capsule PO SCH (18:23)
[2018-07-22] MEDS: Furosemide 40 MG Tablet PO SCH (18:23)
[2018-07-23] MEDS: Heparin - SQ 10,000 UNITS/ML Vial SQ SCH ×4 (03:02→21:13)
[2018-07-23] MEDS: Polyethylene Glycol 3350 17 GM Packet PO SCH ×3 (03:02→21:12)
[2018-07-23] MEDS: Famotidine 20 MG Tablet PO SCH ×3 (03:02→21:12)
[2018-07-23] MEDS: Senna/Docusate Sodium 8.6/50 MG Tablet PO SCH ×3 (03:02→21:12)
[2018-07-23 05:51] LABS: Baso # (Auto) 0.2 th/mm3 (0.0-0.2); Baso % (Auto) 2.5 % (0.0-2.0); Eos # (Auto) 0.1 th/mm3 (0.0-0.4); Eos % (Auto) 1.4 % (0.0-4.0); Hematocrit 36.7 % (35.0-46.0); Hemoglobin 11.1 gm/dL (11.6-15.3); Lymph # (Auto) 2.7 th/mm3 (1.0-4.8); Lymph % (Auto) 31.7 % (9.0-44.0); Mean Corpuscular Hemoglobin 29.5 pg (27.0-34.0); Mean Corpuscular Volume 97.3 fL (80.0-100.0); Mean Platelet Volume 8.4 fL (7.0-11.0); Mono % (Auto) 11.8 % (0.0-8.0); Neut # (Auto) 4.5 th/mm3 (1.8-7.7); Neut % (Auto) 52.6 % (16.0-70.0); Platelet Count 207 th/mm3 (150-450); Red Blood Count 3.77 mil/mm3 (4.00-5.30); Red Cell Distribution Width 26.5 % (11.6-17.2); White Blood Count 8.5 th/mm3 (4.0-11.0)
[2018-07-23 06:04] LABS: Mean Corpuscular HGB Conc 30.4 % (32.0-36.0)
[2018-07-23 06:22] LABS: Albumin 2.2 g/dL (3.4-5.0); Calcium 8.6 mg/dL (8.5-10.1); Carbon Dioxide 23.3 meq/L (21.0-32.0); Magnesium 2.3 mg/dL (1.5-2.5); Phosphorus 5.7 mg/dL (2.5-4.9); Potassium 5.5 meq/L (3.5-5.1)
[2018-07-23 08:36] LABS: Polychromasia 3.5 % (0.0-1.9)
[2018-07-23 08:37] LABS: Platelet Estimate Normal (Normal); Platelet Morphology Normal (Normal)
[2018-07-23] MEDS: Heparin 10,000 UNITS/10 ML Vial (for IV use) OTHER PRN (10:06)
--- NOTE | 2018-07-23 10:06 | P.PNNP ---
Subjective Interval history: patient was seen during dialysis. On 2K, UF goal is 2 liters, BFR is 300 ml. Patient was complaining of cold. Physical Exam Vital signs: Vital Signs 07/22/18 12:00 07/22/18 16:00 07/22/18 20:00 Temperature 97.8 F 97.1 F L 97.6 F Pulse Rate 115 H 114 H 122 H Respiratory Rate 17 18 17 Blood Pressure 131/91 H 165/118 H 147/102 H Pulse Oximetry 95 99 96 07/22/18 23:33 07/23/18 08:00 Temperature 98.2 F 97.2 F L Pulse Rate 114 H 110 H Respiratory Rate 18 18 Blood Pressure 136/101 H 134/100 H Pulse Oximetry 96 95 Intake & Output 07/22/18 07/23/18 07/23/18 18:59 06:59 18:59 Intake Total 400 / 400 980 / 980 Output Total 225 / 225 Balance 175 / 175 980 / 980 Weight 58.2 kg Intake: Oral 400 / 400 980 / 980 Output: Urine 225 / 225 Other: # Voids 4 # Bowel Movements 1 Narrative: GENERAL: Appears comfortable, sitting up in bed. NAD SKIN: Warm and dry. Permacath right IJ HEAD: Normocephalic. EYES: No scleral icterus. No injection or drainage. NECK: Supple, trachea midline. No JVD. Patient does have poor dentition, however no abscess noted. No pronator drift. no meningeal signs CARDIOVASCULAR: Regular rate and rhythm. Murmur RESPIRATORY: Breath sounds equal bilaterally. No accessory muscle use. GASTROINTESTINAL: Abdomen distended. MUSCULOSKELETAL: No cyanosis, or edema. BACK: Nontender without obvious deformity. No CVA tenderness. Assessment and Plan - Assessment (1) Acute kidney injury Code(s): N17.9 - Acute kidney failure, unspecified Status: Acute Plan: Acute kidney injury requiring hemodialysis Patient has sepsis with hx of IVDA, developed TED Has right IJ Hemodialysis catheter Hemodialysis on Wednesday/, Wednesday Plan Avoid nephrotoxins including IV contrast and gadolinium. Epogen with dialysis Continue renal diet, Monitor urinary output and electrolytes Hemodialysis today. Will continue to watch for renal recovery Labs in AM (2) Endocarditis Code(s): I38 - Endocarditis, valve unspecified Status: Acute Plan: On antibiotics Renal dose as appropriate (3) Hyperkalemia Code(s): E87.5 - Hyperkalemia Status: Acute Plan: Resolved
--- NOTE | 2018-07-23 11:03 | P.PNID ---
Subjective Remarks: She is a 28-year-old female, who was here at [facility] the first week of May and at that time she was diagnosed to have MSSA bacteremia, and highly suspicious for endocarditis. She had evidence of multiple pulmonary septic emboli, but her echocardiogram did not show any vegetation, but it did show moderate tricuspid valve regurgitation. She signed out AGAINST MEDICAL ADVICE, and it looks like she was admitted at [facility] and I do not have any details on that. She told me she was in that hospital for at least 1-1/2-2 weeks, and reportedly signed out AGAINST MEDICAL ADVICE again, and presented to [facility] and was admitted July 12, and signed out AMA again, and presented here at [facility] on July 14. I have some records from [facility], and her creatinine was elevated at that time. She had a right IJ Vas-Cath placement on July 12. Since admission here, her highest temperature has been 100.7. Her blood cultures have been negative. Her chest x-ray showing bilateral infiltrates. Her creatinine is elevated. She has had hemodialysis since admission. Patient currently is complaining of abdominal pain. She has had paracentesis yesterday , and had removal of about 2.1 L of ascites. She is complaining that it feels like her fluid has reaccumulated. She is currently afebrile. She has mild shortness of breath. She is currently on IV cefepime. Infectious disease consultation has been requested to assist with evaluation and treatment. Notes reviewed Temps ok HD this morning All BC here negative Antibiotics: Ancef Lines: Vascath - Line no evidence of infection Past Medical History: Cholecystitis (Acute) Asthma (Acute) Endocarditis Hemodialysis patient H/O tooth extraction History of dental surgery Allergies/Adverse Reactions: Allergies sweet potato Allergy (Severe, Verified 05/29/18 19:49) Hives amoxicillin Allergy (Intermediate, Verified 05/29/18 19:49) SWELLING, HIVES penicillin G Allergy (Intermediate, Verified 05/29/18 19:49) Hives Objective Vital Signs 07/22/18 12:00 07/22/18 16:00 07/22/18 20:00 Temperature 97.8 F 97.1 F L 97.6 F Pulse Rate 115 H 114 H 122 H Respiratory Rate 17 18 17 Blood Pressure 131/91 H 165/118 H 147/102 H Pulse Oximetry 95 99 96 07/22/18 23:33 07/23/18 08:00 Temperature 98.2 F 97.2 F L Pulse Rate 114 H 110 H Respiratory Rate 18 18 Blood Pressure 136/101 H 134/100 H Pulse Oximetry 96 95 Intake & Output 07/22/18 07/23/18 07/23/18 18:59 06:59 18:59 Intake Total 400 / 400 980 / 980 Output Total 225 / 225 Balance 175 / 175 980 / 980 Weight 58.2 kg Intake: Oral 400 / 400 980 / 980 Output: Urine 225 / 225 Other: # Voids 4 # Bowel Movements 1 Lab - Hematology Results 07/23/18 05:11 WBC 8.5 RBC 3.77 L Hgb 11.1 L Hct 36.7 MCV 97.3 D MCH 29.5 MCHC 30.4 L RDW 26.5 H D Plt Count 207 MPV 8.4 Prelim Diff (Auto) Slide review pending Neut % (Auto) 52.6 Lymph % (Auto) 31.7 [place] % (Auto) 11.8 H Eos % (Auto) 1.4 Baso % (Auto) 2.5 H Neut # (Auto) 4.5 Lymph # (Auto) 2.7 [place] # (Auto) 1.0 H Eos # (Auto) 0.1 Baso # (Auto) 0.2 WBC Differential . Diff Scan Auto diff confirmed Differential Comment . Platelet Estimate Normal Platelet Morphology Normal Polychromasia 3.5 H Lab - Chemistry Results 07/21/18 07/21/18 07/23/18 14:00 17:05 05:11 Sodium 133 L Potassium 5.5 H Chloride 95 L Carbon Dioxide 23.3 Anion Gap 15 BUN 58 H Creatinine 6.85 H Estimated GFR 7 L POC Glucose 118 H Random Glucose 94 Calcium 8.6 Phosphorus 5.7 H Magnesium 2.3 B-Natriuretic Peptide Greater than 5000 H Albumin 2.2 L Imaging: ITS Impressions Abdomen/Pelvis CT 07/13/18 20:07 CONCLUSION: 1. Bibasilar patchy airspace disease and minimal pleural fluid. 2. Moderate amount of diffuse ascites as well as anasarca. 3. Nonobstructive bowel gas pattern with poor delineation of the bowel secondary to anasarca, lack of intravenous and oral contrast. 4. Cardiomegaly. Chest X-Ray 07/15/18 06:00 CONCLUSION: 1. No significant interval change with persistent patchy bilateral airspace disease. Paracentesis Ultrasound 07/17/18 00:00 CONCLUSION: 1. Uncomplicated paracentesis. Physical Exam: GENERAL: awake and alert, NAD. SKIN: Cool and dry. No generalized rash HEAD: Atraumatic. Normocephalic. No temporal wasting, or tenderness. EYES: [place] conjunctiva. No petechia or hemorrhage. No scleral icterus. No injection or drainage. EARS, NOSE AND THROAT: Mucous membranes pink and moist. No oral lesions noted. NECK: Trachea midline. Supple and not tender, no meningeal signs CARDIOVASCULAR: Regular rate and rhythm. (+) systolic murmur in L precordium, no rub. RESPIRATORY: Clear to auscultation. Breath sounds equal bilaterally. No rales , wheezing or rhonchi ABDOMEN: Distended abdomen, diffusely tender, no guarding or rebound. Bowel sounds present and normoactive. EXTREMITIES: No clubbing, cyanosis. Has mild bilateral pedal edema. NEURO: Grossly non-focal PSYCHIATRIC: Normal affect, calm and cooperative. LINE: [facility] with no evidence of infection Assessment and Plan - Plan Impression Episode of MSSA sepsis last May 2018, very suspicious for IE 2 recent hospitalizations at [facility] and [place], no details on hospitalization at [facility] Renal failure, now requiring hemodialysis Hepatitis C Rebekah in [facility] 07/14 Known IV drug use Very poor medical compliance Recommendationl Continue IV Ancef for MSSA Very tricky trying to determine end date of her Rx since she has signed out AMA multiple times - she has been in the hospital at least since 07/04 - [facility] and [facility] - will plan 6 weeks and anticipated end date will be August 14 Patient could complete her Rx as outpatient and can give Abx with her HD - nephrology following and no plans noted for HD on D/C - she will not need any other venous access for her IV Abx, and will be able to use her HD access and give Abx with her HD Patient is clinically stable from ID standpoint
--- NOTE | 2018-07-23 13:50 | P.PNIM ---
Subjective Interval history: Patient seen in dialysis. Says she is feeling all right. Reports pain is under control. Prozac started yesterday due to mother request. Patient has been on Prozac in the past, and may help with anxiety and mood. Physical Exam Vital signs: Vital Signs 07/22/18 16:00 07/22/18 20:00 07/22/18 23:33 Temperature 97.1 F L 97.6 F 98.2 F Pulse Rate 114 H 122 H 114 H Respiratory Rate 18 17 18 Blood Pressure 165/118 H 147/102 H 136/101 H Pulse Oximetry 99 96 96 07/23/18 08:00 Temperature 97.2 F L Pulse Rate 110 H Respiratory Rate 18 Blood Pressure 134/100 H Pulse Oximetry 95 Intake & Output 07/22/18 07/23/18 07/23/18 18:59 06:59 18:59 Intake Total 400 / 400 980 / 980 Output Total 225 / 225 3000 / 3000 Balance 175 / 175 980 / 980 -3000 / -3000 Weight 58.2 kg Intake: Oral 400 / 400 980 / 980 Output: Urine 225 / 225 Hemodialysis Amount 3000 / 3000 Other: # Voids 4 # Bowel Movements 1 Narrative: GENERAL: Appears comfortable and lying in bed. NAD SKIN: Warm and dry. Permacath right IJ HEAD: Normocephalic. EYES: No scleral icterus. No injection or drainage. NECK: Supple, trachea midline. No JVD. Patient does have poor dentition, however no abscess noted. No pronator drift. no meningeal signs CARDIOVASCULAR: Regular rate and rhythm. Murmur RESPIRATORY: Breath sounds equal bilaterally. No accessory muscle use. GASTROINTESTINAL: Abdomen distended. MUSCULOSKELETAL: No cyanosis, or edema. BACK: Nontender without obvious deformity. No CVA tenderness. Results - Labs CBC & Chem 7: 07/23/18 05:11 07/23/18 05:11 Laboratory Results - last 24 hr 07/23/18 07/23/18 05:11 05:11 WBC 8.5 RBC 3.77 L Hgb 11.1 L Hct 36.7 MCV 97.3 D MCH 29.5 MCHC 30.4 L RDW 26.5 H D Plt Count 207 MPV 8.4 Prelim Diff (Auto) Slide review pending Neut % (Auto) 52.6 Lymph % (Auto) 31.7 Walker % (Auto) 11.8 H Eos % (Auto) 1.4 Baso % (Auto) 2.5 H Neut # (Auto) 4.5 Lymph # (Auto) 2.7 Walker # (Auto) 1.0 H Eos # (Auto) 0.1 Baso # (Auto) 0.2 WBC Differential . Diff Scan Auto diff confirmed Differential Comment . Platelet Estimate Normal Platelet Morphology Normal Polychromasia 3.5 H Sodium 133 L Potassium 5.5 H Chloride 95 L Carbon Dioxide 23.3 Anion Gap 15 BUN 58 H Creatinine 6.85 H Estimated GFR 7 L Random Glucose 94 Calcium 8.6 Phosphorus 5.7 H Magnesium 2.3 Albumin 2.2 L - Procedures 07/14 paracentesis Assessment and Plan - Plan 28-year-old female with infective tricuspid valve endocarditis and multiorgan dysfunction secondary to endocarditis. remains in heart failure and volume overload, and associated organ failure, including severe renal failure requiring renal replacement therapy. continue to daily pull fluid by HD. Broad spectrum abx. can leave ICU. overall prognosis is quite poor given history of leaving AMA: she will likely not survive if she continues to leave AMA. Acute hypoxemia- resolved Septic pulmonary emboli due to history of IV drug abuse Wean oxygen by nasal cannula for goal SPO2 greater than 90%, currently she is 95 % on room air. Fluid removal with dialysis, Infective tricuspid valve endocarditis Moderate tricuspid valve regurgitation Mixed septic and cardiogenic shock secondary to infective endocarditis- resolving. Sinus tachycardia Bedside echo shows large tricuspid regurgitation with moderate to severe TR With noncompliance and multiple AMA discharges, Not a candidate for valve replacement until she can complete antibiotic therapy and demonstrate medical compliance by not leaving AMA. Nephrology consulted for hemodialysis = 07/20. Continue IV antibiotics as per infectious disease. Waiting for records from [facility] still.. IV drug dependence watch for signs of withdrawal prn oxycodone to prevent withdraws f/u confirmatory UDS. unclear if benzos and opiates are iatrogenic from OSH or illicit. avoid long-acting sedatives Last use of IVDU per patient was before last admission here 3-4 months ago, but I don't think patient is a reliable historian and will follow up with urine drug screen which is currently pending = 07/18. Suspect degree of opioid withdrawal. Will add Suboxone today. = 07/19. Suboxone worked very well. There is an issue with being able to order daily Suboxone in the hospital. Appears to be doing okay today. Will order single dose tomorrow if needed. = 07/20. Unable to order single dose of Suboxone. Does not appear to be in active withdrawal. Will continue to monitor. Severe acute kidney injury requiring renal replacement therapy. Patient came with outside hospital dialysis access in place. Given risk-benefit, will continue OSH dialysis access. = 07/18 nephrology following. Appreciate assistance. Plan for dialysis access: Continue current OSH dialysis catheter until 5-7 days iv antibiotics and until cultures are negative and then replace with new-stick tunneled permacath. If cultures cannot clear, then would recommend changing to new stick percutaneous VasCath for an additional 5-7 days and continue to trend culture data before transitioning to permacath. nephrology consulted, Dr. Monge following will likely need ongoing dialysis during this admission Strict I/Os Acute anion gap metabolic acidosis- resolving. Acute lactic acidosis- resolving. Hyperkalemia- resolving. Severe acute protein calorie malnutrition Acute liver injury- resolving. Acute Hypervolemic Hyponatremia- persistent. advance diet. 1500mL fluid restriction. continue to pull volume with HD liver injury secondary to shock. Hyponatremia is secondary to volume overload from cardiogenic shock. Ascitesultrasound abdomen to review if there is no fluid for paracentesis for therapeutic treatment. = Status post repeat paracentesis on 07/17. 2.1 L. Continue to monitor. = 07/20 some ascites today. Will continue fluid restriction. Stressed fluid restriction. = 07/21. Still with ascites, draining from right paracentesis site. Serous. Continue fluid restriction. Fluid does not appear to be infectious. No growth on culture. BNP. = 07/22. Discussed with nephrology about patient's fluid overload. 07/23. Continue dialysis. Abdomen less distended today. Appreciate nephrology assistance. //Suspected CHF exacerbation //tricuspid regurgitation. Seen on outside echo BNP above 5000, obviously affected by renal failure. Ascites is likely secondary CHF we will discuss with nephrology. Hopefully can increase fluid removed in dialysis. = Continue dialysis, fluid restrictions. Infective Endocarditis, Tricuspid valve Septic Shock- resolving. in last admission, MSSA repeat peripheral blood cultures x 2 F/u 2 blood cultures from dialysis catheter which is in place urine cultures, sputum culture pending vanco with pharmacy dosing. cefepime 1gm iv q24h given renal insufficiency, to cover for pseudomonas re-consulted infectious disease = 07/20. Continue IV antibiotics for suspected endocarditis. Still have not received records from [facility]. Request refaxed today. = Reviewed outside records from [facility] patient with tricuspid vegetation. Continue antibiotics as per infectious disease. Appreciate assistance. GI Prophylaxis pepcid DVT Prophylaxis -- SCDs Heparin subcu Discharge Planning: Pending ID clearance. Patient will need prolonged course of IV antibiotics.
[2018-07-23] MEDS: ceFAZolin 2 GM Premix Inj 2 GM/100 ML BAG IV.SIG SCH (13:53)
[2018-07-23] MEDS: Furosemide 40 MG Tablet PO SCH (13:54)
[2018-07-23] MEDS: FLUoxetine 10 MG Capsule PO SCH (13:54)
[2018-07-23] MEDS ORDERED: FLUoxetine 10 MG Capsule PO ONE (15:59)
[2018-07-24] MEDS: Heparin - SQ 10,000 UNITS/ML Vial SQ SCH ×3 (05:30→21:07)
[2018-07-24] MEDS: Furosemide 40 MG Tablet PO SCH (09:09)
[2018-07-24] MEDS: FLUoxetine 10 MG Capsule PO SCH (09:09)
[2018-07-24] MEDS: Famotidine 20 MG Tablet PO SCH ×2 (09:10→21:06)
[2018-07-24] MEDS: Senna/Docusate Sodium 8.6/50 MG Tablet PO SCH ×2 (09:11→21:06)
--- NOTE | 2018-07-24 11:09 | P.PN ---
Subjective Interval history: This is a pleasant 28 y/o female with Infective tricuspid valve endocarditis, and multiorgan dysfunction secondary to endocarditis, has severe renal failure requiring renal replacement therapy, ID specialist following, she has also history of signing AMA, Seen in her bedroom no complaint, no nausea, vomit or diarrhea. Physical Exam Vital signs: Vital Signs 07/23/18 16:00 07/23/18 20:00 07/23/18 22:54 Temperature 98.0 F 100.1 F H Pulse Rate 120 H 112 H 106 H Respiratory Rate 22 18 15 Blood Pressure 146/83 H 122/93 H Pulse Oximetry 96 95 07/24/18 00:00 07/24/18 08:00 07/24/18 08:50 Temperature 98.4 F 97.7 F Pulse Rate 110 H 116 H 119 H Respiratory Rate 18 16 25 H Blood Pressure 128/93 H 126/88 Pulse Oximetry 99 93 L Intake & Output 07/23/18 07/24/18 07/24/18 18:59 06:59 18:59 Intake Total 120 / 120 200 / 200 Output Total 3350 / 3350 1000 / 1000 Balance -3230 / -3230 -800 / -800 Intake: Oral 120 / 120 200 / 200 Output: Urine 350 / 350 1000 / 1000 Hemodialysis Amount 3000 / 3000 Narrative: GENERAL: Appears comfortable and lying in bed. NAD SKIN: Permacath right IJ HEAD: Normocephalic. CARDIOVASCULAR: Regular rate and rhythm. Murmur RESPIRATORY: Breath sounds equal bilaterally. No accessory muscle use. Results - Labs CBC & Chem 7: 07/23/18 05:11 07/23/18 05:11 - Procedures 07/14 paracentesis Assessment and Plan - Plan 28-year-old female with infective tricuspid valve endocarditis and multiorgan dysfunction secondary to endocarditis. remains in heart failure and volume overload, and associated organ failure, including severe renal failure requiring renal replacement therapy. continue to daily pull fluid by HD. Broad spectrum abx. can leave ICU. overall prognosis is quite poor given history of leaving AMA: she will likely not survive if she continues to leave AMA. Acute hypoxemia- resolved Septic pulmonary emboli due to history of IV drug abuse Wean oxygen by nasal cannula for goal SPO2 greater than 90%, currently she is 95 % on room air. Fluid removal with dialysis, Infective tricuspid valve endocarditis Moderate tricuspid valve regurgitation Mixed septic and cardiogenic shock secondary to infective endocarditis- resolving. Sinus tachycardia Bedside echo shows large tricuspid regurgitation with moderate to severe TR With noncompliance and multiple AMA discharges, Not a candidate for valve replacement until she can complete antibiotic therapy and demonstrate medical compliance by not leaving AMA. Nephrology consulted for hemodialysis = 07/20. Continue IV antibiotics as per infectious disease. Waiting for records from [facility] still.. IV drug dependence watch for signs of withdrawal prn oxycodone to prevent withdraws f/u confirmatory UDS. unclear if benzos and opiates are iatrogenic from OSH or illicit. avoid long-acting sedatives Last use of IVDU per patient was before last admission here 3-4 months ago, but I don't think patient is a reliable historian and will follow up with urine drug screen which is currently pending = 07/18. Suspect degree of opioid withdrawal. Will add Suboxone today. = 07/19. Suboxone worked very well. There is an issue with being able to order daily Suboxone in the hospital. Appears to be doing okay today. Will order single dose tomorrow if needed. = 07/20. Unable to order single dose of Suboxone. Does not appear to be in active withdrawal. Will continue to monitor. Severe acute kidney injury requiring renal replacement therapy. Patient came with outside hospital dialysis access in place. Given risk-benefit, will continue OSH dialysis access. = 07/18 nephrology following. Appreciate assistance. Plan for dialysis access: Continue current OSH dialysis catheter until 5-7 days iv antibiotics and until cultures are negative and then replace with new-stick tunneled permacath. If cultures cannot clear, then would recommend changing to new stick percutaneous VasCath for an additional 5-7 days and continue to trend culture data before transitioning to permacath. nephrology consulted, Dr. Monge following will likely need ongoing dialysis during this admission Strict I/Os Acute anion gap metabolic acidosis- resolving. Acute lactic acidosis- resolving. Hyperkalemia- resolving. Severe acute protein calorie malnutrition Acute liver injury- resolving. Acute Hypervolemic Hyponatremia- persistent. advance diet. 1500mL fluid restriction. continue to pull volume with HD liver injury secondary to shock. Hyponatremia is secondary to volume overload from cardiogenic shock. Ascitesultrasound abdomen to review if there is no fluid for paracentesis for therapeutic treatment. = Status post repeat paracentesis on 07/17. 2.1 L. Continue to monitor. = 07/20 some ascites today. Will continue fluid restriction. Stressed fluid restriction. = 07/21. Still with ascites, draining from right paracentesis site. Serous. Continue fluid restriction. Fluid does not appear to be infectious. No growth on culture. BNP. = 07/22. Discussed with nephrology about patient's fluid overload. 07/23. Continue dialysis. Abdomen less distended today. Appreciate nephrology assistance. //Suspected CHF exacerbation //tricuspid regurgitation. Seen on outside echo BNP above 5000, obviously affected by renal failure. Ascites is likely secondary CHF we will discuss with nephrology. Hopefully can increase fluid removed in dialysis. = Continue dialysis, fluid restrictions. Infective Endocarditis, Tricuspid valve Septic Shock- resolving. in last admission, MSSA repeat peripheral blood cultures x 2 F/u 2 blood cultures from dialysis catheter which is in place urine cultures, sputum culture pending vanco with pharmacy dosing. cefepime 1gm iv q24h given renal insufficiency, to cover for pseudomonas re-consulted infectious disease = 07/20. Continue IV antibiotics for suspected endocarditis. Still have not received records from [facility]. Request refaxed today. = Reviewed outside records from [facility] patient with tricuspid vegetation. Continue antibiotics as per infectious disease. Appreciate assistance. GI Prophylaxis pepcid DVT Prophylaxis -- SCDs Heparin subcutaneous. Code Status: Full code Discussed Condition With: patient and nurse Discharge Planning: Pending ID clearance. Patient will need prolonged course of IV antibiotics.
[2018-07-24] MEDS: Polyethylene Glycol 3350 17 GM Packet PO SCH ×2 (12:46→21:06)
[2018-07-24] MEDS: ceFAZolin 2 GM Premix Inj 2 GM/100 ML BAG IV.SIG SCH (18:27)
[2018-07-25] MEDS: Heparin - SQ 10,000 UNITS/ML Vial SQ SCH ×3 (05:24→23:02)
--- NOTE | 2018-07-25 10:07 | P.PNNP ---
Subjective Interval history: Patient sleeping on side. No complaints. Urinary output improving at 1.3 liters /24 hours. <Debbie Godinez - Last Filed: 07/25/18 12:22> Physical Exam Vital signs: Vital Signs 07/24/18 12:00 07/24/18 15:15 07/24/18 16:00 Temperature 98.1 F 97.6 F Pulse Rate 136 H 127 H Respiratory Rate 19 9 L 19 Blood Pressure 133/100 H 143/106 H Pulse Oximetry 95 98 07/24/18 20:00 07/25/18 00:00 07/25/18 08:00 Temperature 99.3 F 99.3 F 98.3 F Pulse Rate 112 H 117 H 114 H Respiratory Rate 20 20 18 Blood Pressure 126/87 134/102 H 119/91 H Pulse Oximetry 99 100 93 L Intake & Output 07/24/18 07/25/18 07/25/18 18:59 06:59 18:59 Intake Total 500 / 500 Balance 500 / 500 Intake: Oral 500 / 500 Other: # Voids 1 Narrative: GENERAL: Appears comfortable, sitting up in bed. NAD SKIN: Warm and dry. Permacath right IJ HEAD: Normocephalic. EYES: No scleral icterus. No injection or drainage. NECK: Supple, trachea midline. No JVD. CARDIOVASCULAR: Regular rate and rhythm. Murmur RESPIRATORY: Breath sounds equal bilaterally. No accessory muscle use. GASTROINTESTINAL: Abdomen distended. MUSCULOSKELETAL: No cyanosis, or edema. BACK: Nontender without obvious deformity. No CVA tenderness. <Debbie Godinez - Last Filed: 07/25/18 12:22> Vital signs: Vital Signs 07/24/18 20:00 07/25/18 00:00 07/25/18 08:00 Temperature 99.3 F 99.3 F 98.3 F Pulse Rate 112 H 117 H 114 H Respiratory Rate 20 20 18 Blood Pressure 126/87 134/102 H 119/91 H Pulse Oximetry 99 100 93 L 07/25/18 11:45 07/25/18 12:00 07/25/18 16:00 Temperature 98.1 F 98.3 F Pulse Rate 93 H 107 H Respiratory Rate 16 18 18 Blood Pressure 130/99 H 136/82 Pulse Oximetry 93 L 97 Intake & Output 07/25/18 07/25/18 07/26/18 06:59 18:59 06:59 Intake Total 600 / 600 Balance 600 / 600 Intake: IV 100 / 100 Ancef 2 GM Premix Inj 2 gm In 100 / 100 100 ml @ 200 mls/hr IV.SIG DAILY SERGE Rx#:[id number] Oral 500 / 500 Other: # Voids 1 <Bhargav Monge - Last Filed: 07/25/18 19:56> Assessment and Plan - Assessment (1) Acute kidney injury Code(s): N17.9 - Acute kidney failure, unspecified Status: Acute Plan: Acute kidney injury requiring hemodialysis Patient has sepsis with hx of IVDA, developed TED Has right IJ Hemodialysis catheter Hemodialysis on Wednesday/, Wednesday Plan Avoid nephrotoxins including IV contrast and gadolinium. Epogen with dialysis Continue renal diet, Continue Lasix daily, urinary output improving. Maintain strict I+0's Will continue to monitor urinary output and electrolyte. Will continue to watch for renal recovery Labs ordered for AM (2) Endocarditis Code(s): I38 - Endocarditis, valve unspecified Status: Acute Plan: On antibiotics Renal dose as appropriate (3) Hyperkalemia Code(s): E87.5 - Hyperkalemia Status: Acute Plan: Labs in AM <Debbie Godinez - Last Filed: 07/25/18 12:22> - Assessment (1) Acute kidney injury Code(s): N17.9 - Acute kidney failure, unspecified Status: Acute Plan: Patient seen and examined, agree with above. HD will be in AM. (2) Endocarditis Code(s): I38 - Endocarditis, valve unspecified Status: Acute (3) Hyperkalemia Code(s): E87.5 - Hyperkalemia Status: Acute <Bhargav Monge - Last Filed: 07/25/18 19:56>
[2018-07-25] MEDS: ceFAZolin 2 GM Premix Inj 2 GM/100 ML BAG IV.SIG SCH (11:08)
[2018-07-25] MEDS: Furosemide 40 MG Tablet PO SCH (11:09)
[2018-07-25] MEDS: Famotidine 20 MG Tablet PO SCH ×2 (11:09→23:01)
[2018-07-25] MEDS: FLUoxetine 10 MG Capsule PO SCH (11:09)
[2018-07-25] MEDS: Senna/Docusate Sodium 8.6/50 MG Tablet PO SCH ×2 (11:14→23:02)
[2018-07-25] MEDS: Polyethylene Glycol 3350 17 GM Packet PO SCH ×2 (11:14→22:45)
--- NOTE | 2018-07-25 13:46 | P.PN ---
Subjective Interval history: This is a pleasant 28 y/o female with Infective tricuspid valve endocarditis, and multiorgan dysfunction secondary to endocarditis, has severe renal failure requiring renal replacement therapy, ID specialist following, she has also history of signing AMA. Seen in her bedroom, no complaint at this time, no nausea, vomit or diarrhea. Physical Exam Vital signs: Vital Signs 07/24/18 15:15 07/24/18 16:00 07/24/18 20:00 Temperature 97.6 F 99.3 F Pulse Rate 127 H 112 H Respiratory Rate 9 L 19 20 Blood Pressure 143/106 H 126/87 Pulse Oximetry 98 99 07/25/18 00:00 07/25/18 08:00 07/25/18 11:45 Temperature 99.3 F 98.3 F Pulse Rate 117 H 114 H Respiratory Rate 20 18 16 Blood Pressure 134/102 H 119/91 H Pulse Oximetry 100 93 L Intake & Output 07/24/18 07/25/18 07/25/18 18:59 06:59 18:59 Intake Total 600 / 600 Balance 600 / 600 Intake: IV 100 / 100 Ancef 2 GM Premix Inj 2 gm In 100 / 100 100 ml @ 200 mls/hr IV.SIG DAILY SERGE Rx#:[id number] Oral 500 / 500 Other: # Voids 1 Narrative: GENERAL: Appears comfortable and lying in bed. NAD SKIN: Permacath right IJ HEAD: Normocephalic. CARDIOVASCULAR: Regular rate and rhythm. Murmur RESPIRATORY: Breath sounds equal bilaterally. No accessory muscle use. Results - Labs CBC & Chem 7: 07/23/18 05:11 07/23/18 05:11 - Procedures 07/14 paracentesis Assessment and Plan - Plan 28-year-old female with infective tricuspid valve endocarditis and multiorgan dysfunction secondary to endocarditis. remains in heart failure and volume overload, and associated organ failure, including severe renal failure requiring renal replacement therapy. continue to daily pull fluid by HD. Broad spectrum abx. can leave ICU. overall prognosis is quite poor given history of leaving AMA: she will likely not survive if she continues to leave AMA. Acute hypoxemia- resolved Septic pulmonary emboli due to history of IV drug abuse Wean oxygen by nasal cannula for goal SPO2 greater than 90%, currently she is 95 % on room air. Fluid removal with dialysis, Infective tricuspid valve endocarditis Moderate tricuspid valve regurgitation Mixed septic and cardiogenic shock secondary to infective endocarditis- resolving. Sinus tachycardia Bedside echo shows large tricuspid regurgitation with moderate to severe TR With noncompliance and multiple AMA discharges, Not a candidate for valve replacement until she can complete antibiotic therapy and demonstrate medical compliance by not leaving AMA. Nephrology consulted for hemodialysis = 07/20. Continue IV antibiotics as per infectious disease. Waiting for records from [facility] still.. IV drug dependence watch for signs of withdrawal prn oxycodone to prevent withdraws f/u confirmatory UDS. unclear if benzos and opiates are iatrogenic from OSH or illicit. avoid long-acting sedatives Last use of IVDU per patient was before last admission here 3-4 months ago, but I don't think patient is a reliable historian and will follow up with urine drug screen which is currently pending = 07/18. Suspect degree of opioid withdrawal. Will add Suboxone today. = 07/19. Suboxone worked very well. There is an issue with being able to order daily Suboxone in the hospital. Appears to be doing okay today. Will order single dose tomorrow if needed. = 07/20. Unable to order single dose of Suboxone. Does not appear to be in active withdrawal. Will continue to monitor. Severe acute kidney injury requiring renal replacement therapy. Patient came with outside hospital dialysis access in place. Given risk-benefit, will continue OSH dialysis access. = 07/18 nephrology following. Appreciate assistance. Plan for dialysis access: Continue current OSH dialysis catheter until 5-7 days iv antibiotics and until cultures are negative and then replace with new-stick tunneled permacath. If cultures cannot clear, then would recommend changing to new stick percutaneous VasCath for an additional 5-7 days and continue to trend culture data before transitioning to permacath. nephrology consulted, Dr. Monge following will likely need ongoing dialysis during this admission Strict I/Os Acute anion gap metabolic acidosis- resolving. Acute lactic acidosis- resolving. Hyperkalemia- resolving. Severe acute protein calorie malnutrition Acute liver injury- resolving. Acute Hypervolemic Hyponatremia- persistent. advance diet. 1500mL fluid restriction. continue to pull volume with HD liver injury secondary to shock. Hyponatremia is secondary to volume overload from cardiogenic shock. Ascitesultrasound abdomen to review if there is no fluid for paracentesis for therapeutic treatment. = Status post repeat paracentesis on 07/17. 2.1 L. Continue to monitor. = 07/20 some ascites today. Will continue fluid restriction. Stressed fluid restriction. = 07/21. Still with ascites, draining from right paracentesis site. Serous. Continue fluid restriction. Fluid does not appear to be infectious. No growth on culture. BNP. = 07/22. Discussed with nephrology about patient's fluid overload. 07/23. Continue dialysis. Abdomen less distended today. Appreciate nephrology assistance. //Suspected CHF exacerbation //tricuspid regurgitation. Seen on outside echo BNP above 5000, obviously affected by renal failure. Ascites is likely secondary CHF we will discuss with nephrology. Hopefully can increase fluid removed in dialysis. = Continue dialysis, fluid restrictions. Infective Endocarditis, Tricuspid valve Septic Shock- resolving. in last admission, MSSA repeat peripheral blood cultures x 2 F/u 2 blood cultures from dialysis catheter which is in place urine cultures, sputum culture pending vanco with pharmacy dosing. cefepime 1gm iv q24h given renal insufficiency, to cover for pseudomonas re-consulted infectious disease = 07/20. Continue IV antibiotics for suspected endocarditis. Still have not received records from [facility]. Request refaxed today. = Reviewed outside records from [facility] patient with tricuspid vegetation. Continue antibiotics as per infectious disease. Appreciate assistance. GI Prophylaxis pepcid DVT Prophylaxis -- SCDs Heparin subcutaneous. Code Status: Full Code. Discussed Condition With: patient and nurse. Discharge Planning: Pending ID clearance. Patient will need prolonged course of IV antibiotics.
[2018-07-26] MEDS: Heparin - SQ 10,000 UNITS/ML Vial SQ SCH ×4 (05:16→21:46)
[2018-07-26 07:38] LABS: Baso # (Auto) 0.1 th/mm3 (0.0-0.2); Baso % (Auto) 1.6 % (0.0-2.0); Eos # (Auto) 0.1 th/mm3 (0.0-0.4); Eos % (Auto) 1.2 % (0.0-4.0); Hematocrit 35.7 % (35.0-46.0); Hemoglobin 11.1 gm/dL (11.6-15.3); Lymph # (Auto) 2.7 th/mm3 (1.0-4.8); Lymph % (Auto) 28.7 % (9.0-44.0); Mean Corpuscular HGB Conc 31.2 % (32.0-36.0); Mean Corpuscular Hemoglobin 30.3 pg (27.0-34.0); Mean Platelet Volume 8.8 fL (7.0-11.0); Mono # (Auto) 1.4 th/mm3 (0.0-0.9); Mono % (Auto) 14.5 % (0.0-8.0); Neut # (Auto) 5.1 th/mm3 (1.8-7.7); Platelet Count 201 th/mm3 (150-450); Red Blood Count 3.68 mil/mm3 (4.00-5.30); Red Cell Distribution Width 26.8 % (11.6-17.2); White Blood Count 9.4 th/mm3 (4.0-11.0)
[2018-07-26 08:40] LABS: Polychromasia 2.8 % (0.0-1.9)
[2018-07-26 08:41] LABS: Dimorphic RBC Present; Ovalocytes 1+; Platelet Estimate Normal (Normal); Platelet Morphology Normal (Normal)
[2018-07-26 08:50] LABS: Calcium 8.7 mg/dL (8.5-10.1); Phosphorus 6.8 mg/dL (2.5-4.9); Potassium 6.1 meq/L (3.5-5.1)
[2018-07-26] MEDS: FLUoxetine 10 MG Capsule PO SCH (09:46)
[2018-07-26] MEDS: Furosemide 40 MG Tablet PO SCH (09:47)
[2018-07-26] MEDS: Famotidine 20 MG Tablet PO SCH ×2 (09:47→20:38)
[2018-07-26] MEDS: ceFAZolin 2 GM Premix Inj 2 GM/100 ML BAG IV.SIG SCH (09:47)
[2018-07-26] MEDS: Senna/Docusate Sodium 8.6/50 MG Tablet PO SCH ×2 (09:48→20:43)
[2018-07-26] MEDS: Polyethylene Glycol 3350 17 GM Packet PO SCH ×2 (09:52→20:43)
--- NOTE | 2018-07-26 12:29 | P.PN ---
Subjective Interval history: This is a pleasant 28 y/o female with Infective tricuspid valve endocarditis, and multiorgan dysfunction secondary to endocarditis, has severe renal failure requiring renal replacement therapy, ID specialist following, she has also history of signing AMA. 07/26: Seen with nurse, no nausea, vomit or diarrhea, as per ID specialist okay to discharge and continue antibiotics while on HD if cleared by Nephrology awaiting for clearance. probable for tomorrow. Physical Exam Vital signs: Vital Signs 07/25/18 16:00 07/25/18 20:00 07/26/18 00:00 Temperature 98.3 F 97.2 F L 98.7 F Pulse Rate 107 H 108 H 111 H Respiratory Rate 18 17 16 Blood Pressure 136/82 134/94 H 136/94 H Pulse Oximetry 97 95 98 Intake & Output 07/25/18 07/26/18 07/26/18 18:59 06:59 18:59 Intake Total 600 / 600 480 / 480 100 / 100 Balance 600 / 600 480 / 480 100 / 100 Weight 58.2 kg Intake: IV 100 / 100 100 / 100 Ancef 2 GM Premix Inj 2 gm In 100 / 100 100 / 100 100 ml @ 200 mls/hr IV.SIG DAILY SERGE Rx#:[id number] Oral 500 / 500 480 / 480 Other: # Voids 1 4 Narrative: GENERAL: Appears comfortable and lying in bed. NAD SKIN: Permacath right IJ HEAD: Normocephalic. CARDIOVASCULAR: Regular rate and rhythm. Murmur RESPIRATORY: Breath sounds equal bilaterally. No accessory muscle use. Results - Labs CBC & Chem 7: 07/26/18 05:39 07/26/18 05:39 Laboratory Results - last 24 hr 07/26/18 07/26/18 05:39 05:39 WBC 9.4 RBC 3.68 L Hgb 11.1 L Hct 35.7 MCV 97.0 MCH 30.3 MCHC 31.2 L RDW 26.8 H Plt Count 201 MPV 8.8 Prelim Diff (Auto) Slide review pending Neut % (Auto) 54.0 Lymph % (Auto) 28.7 Morrow % (Auto) 14.5 H Eos % (Auto) 1.2 Baso % (Auto) 1.6 Neut # (Auto) 5.1 Lymph # (Auto) 2.7 Morrow # (Auto) 1.4 H Eos # (Auto) 0.1 Baso # (Auto) 0.1 WBC Differential . Diff Scan Auto diff confirmed Differential Comment . Platelet Estimate Normal Platelet Morphology Normal Dimorphic RBCs Present H Polychromasia 2.8 H Ovalocytes 1+ H Sodium 132 L Potassium 6.1 H Chloride 94 L Carbon Dioxide 21.0 Anion Gap 17 H BUN 72 H Creatinine 7.20 H Estimated GFR 7 L Random Glucose 88 Calcium 8.7 Phosphorus 6.8 H Albumin 2.0 L - Procedures 07/14 paracentesis Assessment and Plan - Plan 28-year-old female with infective tricuspid valve endocarditis and multiorgan dysfunction secondary to endocarditis. remains in heart failure and volume overload, and associated organ failure, including severe renal failure requiring renal replacement therapy. continue to daily pull fluid by HD. Broad spectrum abx. can leave ICU. overall prognosis is quite poor given history of leaving AMA: she will likely not survive if she continues to leave AMA. Acute hypoxemia- resolved Septic pulmonary emboli due to history of IV drug abuse Wean oxygen by nasal cannula for goal SPO2 greater than 90%, currently she is 95 % on room air. Fluid removal with dialysis, Infective tricuspid valve endocarditis Moderate tricuspid valve regurgitation Mixed septic and cardiogenic shock secondary to infective endocarditis- resolving. Sinus tachycardia Bedside echo shows large tricuspid regurgitation with moderate to severe TR With noncompliance and multiple AMA discharges, Not a candidate for valve replacement until she can complete antibiotic therapy and demonstrate medical compliance by not leaving AMA. Nephrology consulted for hemodialysis = 07/20. Continue IV antibiotics as per infectious disease. as per ID okay to discharge on antibiotics complete six weeks will finish on August 14 2018 continue on Hemodialysis awaiting for Nephrology clearance for discharge. IV drug dependence watch for signs of withdrawal prn oxycodone to prevent withdraws f/u confirmatory UDS. unclear if benzos and opiates are iatrogenic from OSH or illicit. avoid long-acting sedatives Last use of IVDU per patient was before last admission here 3-4 months ago, but I don't think patient is a reliable historian and will follow up with urine drug screen which is currently pending = 07/18. Suspect degree of opioid withdrawal. Will add Suboxone today. = 07/19. Suboxone worked very well. There is an issue with being able to order daily Suboxone in the hospital. Appears to be doing okay today. Will order single dose tomorrow if needed. = 07/20. Unable to order single dose of Suboxone. Does not appear to be in active withdrawal. Will continue to monitor. Severe acute kidney injury requiring renal replacement therapy. Patient came with outside hospital dialysis access in place. Given risk-benefit, will continue OSH dialysis access. = 07/18 nephrology following. Appreciate assistance. Plan for dialysis access: Continue current OSH dialysis catheter until 5-7 days iv antibiotics and until cultures are negative and then replace with new-stick tunneled permacath. If cultures cannot clear, then would recommend changing to new stick percutaneous VasCath for an additional 5-7 days and continue to trend culture data before transitioning to permacath. nephrology consulted, Dr. Monge following will likely need ongoing dialysis during this admission Strict I/Os Acute anion gap metabolic acidosis- resolving. Acute lactic acidosis- resolving. Hyperkalemia- resolving. Severe acute protein calorie malnutrition Acute liver injury- resolving. Acute Hypervolemic Hyponatremia- persistent. advance diet. 1500mL fluid restriction. continue to pull volume with HD liver injury secondary to shock. Hyponatremia is secondary to volume overload from cardiogenic shock. Ascitesultrasound abdomen to review if there is no fluid for paracentesis for therapeutic treatment. = Status post repeat paracentesis on 07/17. 2.1 L. //Suspected CHF exacerbation //tricuspid regurgitation. Seen on outside echo BNP above 5000, obviously affected by renal failure. Ascites is likely secondary CHF we will discuss with nephrology. Hopefully can increase fluid removed in dialysis. = Continue dialysis, fluid restrictions. Infective Endocarditis, Tricuspid valve Septic Shock- resolving. in last admission, MSSA repeat peripheral blood cultures x 2, on Cefazolin will continue while on Hemodialysis no need for other access, will continue to complete six weeks until August 14 2018. GI Prophylaxis pepcid DVT Prophylaxis -- SCDs Heparin subcutaneous. Code Status: Full code. Discussed Condition With: Patient and nurse. Discharge Planning: once cleared by Nephrology specialist.
[2018-07-26] MEDS: Heparin 10,000 UNITS/10 ML Vial (for IV use) OTHER PRN (13:47)
--- NOTE | 2018-07-26 16:22 | P.PNNP ---
Subjective Interval history: Resting with no complaints, Seen during hemodialysis. <Debbie Godinez - Last Filed: 07/26/18 16:18> Physical Exam Vital signs: Vital Signs 07/25/18 20:00 07/26/18 00:00 07/26/18 08:00 Temperature 97.2 F L 98.7 F 97.8 F Pulse Rate 108 H 111 H 108 H Respiratory Rate 17 16 18 Blood Pressure 134/94 H 136/94 H 130/104 H Pulse Oximetry 95 98 96 07/26/18 12:00 Temperature 97.8 F Pulse Rate 107 H Respiratory Rate 16 Blood Pressure 119/82 Pulse Oximetry 93 L Intake & Output 07/25/18 07/26/18 07/26/18 18:59 06:59 18:59 Intake Total 600 / 600 480 / 480 100 / 100 Output Total 3000 / 3000 Balance 600 / 600 480 / 480 -2900 / -2900 Weight 58.2 kg Intake: IV 100 / 100 100 / 100 Ancef 2 GM Premix Inj 2 gm In 100 / 100 100 / 100 100 ml @ 200 mls/hr IV.SIG DAILY SERGE Rx#:[id number] Oral 500 / 500 480 / 480 Output: Hemodialysis Amount 3000 / 3000 Other: # Voids 1 4 Narrative: GENERAL: Appears comfortable, sitting up in bed. NAD SKIN: Warm and dry. Permacath right IJ HEAD: Normocephalic. EYES: No scleral icterus. No injection or drainage. NECK: Supple, trachea midline. No JVD. CARDIOVASCULAR: Regular rate and rhythm. Murmur RESPIRATORY: Breath sounds equal bilaterally. No accessory muscle use. GASTROINTESTINAL: Abdomen distended. MUSCULOSKELETAL: No cyanosis, or edema. BACK: Nontender without obvious deformity. No CVA tenderness. <Debbie Godinez - Last Filed: 07/26/18 16:18> Vital signs: Vital Signs 07/27/18 20:00 07/27/18 23:00 07/28/18 00:00 Temperature 98.0 F 99.5 F Pulse Rate 112 H 126 H Respiratory Rate 16 18 16 Blood Pressure 122/81 137/89 Pulse Oximetry 94 L 94 L 07/28/18 00:36 07/28/18 08:00 07/28/18 10:00 Temperature 98.8 F 98.5 F Pulse Rate 102 H 122 H 125 H Respiratory Rate 22 19 20 Blood Pressure 141/92 H 133/108 H Pulse Oximetry 92 L 92 L 07/28/18 11:55 07/28/18 14:55 07/28/18 15:15 Temperature 97.8 F 98.9 F Pulse Rate 128 H 118 H 116 H Respiratory Rate 20 18 18 Blood Pressure 139/105 H 119/89 120/80 Pulse Oximetry 94 L 97 98 07/28/18 15:30 07/28/18 16:51 Temperature 98.5 F Pulse Rate 115 H 117 H Respiratory Rate 18 17 Blood Pressure 118/86 112/75 Pulse Oximetry 97 94 L Intake & Output 07/27/18 07/28/18 07/28/18 18:59 06:59 18:59 Intake Total 650 / 650 600 / 600 760 / 760 Output Total 200 / 200 Balance 450 / 450 600 / 600 760 / 760 Weight 56.6 kg Intake: IV 100 / 100 0 / 0 Ancef 2 GM Premix Inj 2 gm In 100 / 100 100 ml @ 200 mls/hr IV.SIG DAILY SERGE Rx#:[id number] Oral 650 / 650 500 / 500 760 / 760 Output: Urine 200 / 200 Other: # Voids 150 3 1 Date of Last Bowel Movement 07/26/18 07/27/18 07/27/18 # Bowel Movements 2 0 <Bhargav Monge - Last Filed: 07/28/18 18:04> Assessment and Plan - Assessment (1) Acute kidney injury Code(s): N17.9 - Acute kidney failure, unspecified Status: Acute Plan: Acute kidney injury requiring hemodialysis Patient has sepsis with hx of IVDA, developed TED Has right IJ Hemodialysis catheter Hemodialysis on Wednesday/, Wednesday Plan Avoid nephrotoxins including IV contrast and gadolinium. Epogen with dialysis Continue renal diet, Continue Lasix daily, Maintain strict I+0's Will continue to monitor urinary output, electrolytes, and watch for renal recovery. Hyperkalemia at 6.1, K bath adjusted in dialysis, recheck in AM Seen during hemodialysis tolerating well, plan to remove 3 liters of fluid (2) Endocarditis Code(s): I38 - Endocarditis, valve unspecified Status: Acute Plan: On antibiotics Renal dose as appropriate (3) Hyperkalemia Code(s): E87.5 - Hyperkalemia Status: Acute Plan: Labs in AM K bath adjusted <Gellermann,Debbie - Last Filed: 07/26/18 16:18> - Assessment (1) Acute kidney injury Code(s): N17.9 - Acute kidney failure, unspecified Status: Acute Plan: Patient seen and examined, agree with above. Continue HD, follow the K level. (2) Endocarditis Code(s): I38 - Endocarditis, valve unspecified Status: Acute (3) Hyperkalemia Code(s): E87.5 - Hyperkalemia Status: Acute <Bhargav Monge - Last Filed: 07/28/18 18:04>
[2018-07-27] MEDS: Heparin - SQ 10,000 UNITS/ML Vial SQ SCH ×3 (06:20→21:43)
[2018-07-27] MEDS: FLUoxetine 10 MG Capsule PO SCH (10:18)
[2018-07-27] MEDS: Furosemide 40 MG Tablet PO SCH (10:18)
[2018-07-27] MEDS: ceFAZolin 2 GM Premix Inj 2 GM/100 ML BAG IV.SIG SCH (10:18)
[2018-07-27] MEDS: Polyethylene Glycol 3350 17 GM Packet PO SCH ×2 (10:19→21:47)
[2018-07-27] MEDS: Senna/Docusate Sodium 8.6/50 MG Tablet PO SCH ×2 (10:19→21:47)
[2018-07-27] MEDS: Famotidine 20 MG Tablet PO SCH ×2 (10:23→21:44)
--- NOTE | 2018-07-27 11:25 | P.PN ---
Subjective Interval history: This is a pleasant 28 y/o female with Infective tricuspid valve endocarditis, and multiorgan dysfunction secondary to endocarditis, has severe renal failure requiring renal replacement therapy, ID specialist following, she has also history of signing AMA. 07/26: Seen with nurse, no nausea, vomit or diarrhea, as per ID specialist okay to discharge and continue antibiotics while on HD if cleared by Nephrology awaiting for clearance. 07/27: Stable in her bedroom seen in the presence of Nurse Miss Roberto and student nurse, no nausea, vomit or diarrhea awaiting for clearance by Nephrology for discharge. Physical Exam Vital signs: Vital Signs 07/26/18 12:00 07/26/18 20:00 07/27/18 00:00 Temperature 97.8 F 98.2 F 100.1 F H Pulse Rate 107 H 119 H 107 H Respiratory Rate 16 20 20 Blood Pressure 119/82 120/82 110/75 Pulse Oximetry 93 L 95 93 L 07/27/18 04:00 07/27/18 08:00 Temperature 98.9 F 99.0 F Pulse Rate 105 H Respiratory Rate 18 Blood Pressure 119/84 Pulse Oximetry 93 L Intake & Output 07/26/18 07/27/18 07/27/18 18:59 06:59 18:59 Intake Total 100 / 100 Output Total 3000 / 3000 100 / 100 200 / 200 Balance -2900 / -2900 -100 / -100 -200 / -200 Weight 56.6 kg Intake: IV 100 / 100 Ancef 2 GM Premix Inj 2 gm In 100 / 100 100 ml @ 200 mls/hr IV.SIG DAILY SERGE Rx#:[id number] Output: Urine 100 / 100 200 / 200 Hemodialysis Amount 3000 / 3000 Other: # Voids 1 Narrative: GENERAL: Appears comfortable and lying in bed. NAD SKIN: Permacath right IJ HEAD: Normocephalic. CARDIOVASCULAR: Regular rate and rhythm. Murmur RESPIRATORY: Breath sounds equal bilaterally. No accessory muscle use. Results - Labs CBC & Chem 7: 07/26/18 05:39 07/26/18 05:39 - Procedures 07/14 paracentesis Assessment and Plan - Plan 28-year-old female with infective tricuspid valve endocarditis and multiorgan dysfunction secondary to endocarditis. remains in heart failure and volume overload, and associated organ failure, including severe renal failure requiring renal replacement therapy. continue to daily pull fluid by HD. Broad spectrum abx. can leave ICU. overall prognosis is quite poor given history of leaving AMA: she will likely not survive if she continues to leave AMA. Acute hypoxemia- resolved Septic pulmonary emboli due to history of IV drug abuse Wean oxygen by nasal cannula for goal SPO2 greater than 90%, currently she is 95 % on room air. Fluid removal with dialysis, Infective tricuspid valve endocarditis Moderate tricuspid valve regurgitation Mixed septic and cardiogenic shock secondary to infective endocarditis- resolving. Sinus tachycardia Bedside echo shows large tricuspid regurgitation with moderate to severe TR With noncompliance and multiple AMA discharges, Not a candidate for valve replacement until she can complete antibiotic therapy and demonstrate medical compliance by not leaving AMA. Nephrology consulted for hemodialysis = 07/20. Continue IV antibiotics as per infectious disease. as per ID okay to discharge on antibiotics complete six weeks will finish on August 14 2018 continue on Hemodialysis awaiting for Nephrology clearance for discharge. IV drug dependence watch for signs of withdrawal prn oxycodone to prevent withdraws f/u confirmatory UDS. unclear if benzos and opiates are iatrogenic from OSH or illicit. avoid long-acting sedatives Last use of IVDU per patient was before last admission here 3-4 months ago, but I don't think patient is a reliable historian and will follow up with urine drug screen which is currently pending = 07/18. Suspect degree of opioid withdrawal. Will add Suboxone today. = 07/19. Suboxone worked very well. There is an issue with being able to order daily Suboxone in the hospital. Appears to be doing okay today. Will order single dose tomorrow if needed. = 07/20. Unable to order single dose of Suboxone. Does not appear to be in active withdrawal. Will continue to monitor. Severe acute kidney injury requiring renal replacement therapy. Patient came with outside hospital dialysis access in place. Given risk-benefit, will continue OSH dialysis access. = 07/18 nephrology following. Appreciate assistance. Plan for dialysis access: Continue current OSH dialysis catheter until 5-7 days iv antibiotics and until cultures are negative and then replace with new-stick tunneled permacath. If cultures cannot clear, then would recommend changing to new stick percutaneous VasCath for an additional 5-7 days and continue to trend culture data before transitioning to permacath. nephrology consulted, Dr. Jumani following will likely need ongoing dialysis during this admission Strict I/Os Acute anion gap metabolic acidosis- resolving. Acute lactic acidosis- resolving. Hyperkalemia- resolving. Severe acute protein calorie malnutrition Acute liver injury- resolving. Acute Hypervolemic Hyponatremia- persistent. advance diet. 1500mL fluid restriction. continue to pull volume with HD liver injury secondary to shock. Hyponatremia is secondary to volume overload from cardiogenic shock. Ascitesultrasound abdomen to review if there is no fluid for paracentesis for therapeutic treatment. = Status post repeat paracentesis on 07/17. 2.1 L. //Suspected CHF exacerbation //tricuspid regurgitation. Seen on outside echo BNP above 5000, obviously affected by renal failure. Ascites is likely secondary CHF we will discuss with nephrology. Hopefully can increase fluid removed in dialysis. = Continue dialysis, fluid restrictions. Infective Endocarditis, Tricuspid valve Septic Shock- resolving. in last admission, MSSA repeat peripheral blood cultures x 2, on Cefazolin will continue while on Hemodialysis no need for other access, will continue to complete six weeks until August 14 2018. GI Prophylaxis pepcid DVT Prophylaxis -- SCDs Heparin subcutaneous. Code Status: Full code. Discussed Condition With: Patient and nurse Miss Roberto in the room as always present at all time while I was in the room with patient. Discharge Planning: once cleared by Nephrology specialist.
[2018-07-27 11:53] LABS: Albumin 1.7 g/dL (3.4-5.0); Calcium 8.1 mg/dL (8.5-10.1); Carbon Dioxide 26.6 meq/L (21.0-32.0); Phosphorus 4.3 mg/dL (2.5-4.9); Potassium 4.4 meq/L (3.5-5.1)
--- NOTE | 2018-07-27 17:45 | P.PNNP ---
Subjective Interval history: No acute changes overnight. Creatinine remains elevated at 4.97 and urinary output remains low. <Debbie Godinez - Last Filed: 07/27/18 18:21> Physical Exam Vital signs: Vital Signs 07/26/18 20:00 07/27/18 00:00 07/27/18 04:00 Temperature 98.2 F 100.1 F H 98.9 F Pulse Rate 119 H 107 H Respiratory Rate 20 20 Blood Pressure 120/82 110/75 Pulse Oximetry 95 93 L 07/27/18 08:00 07/27/18 12:00 07/27/18 13:25 Temperature 99.0 F 98.3 F Pulse Rate 105 H 104 H 92 H Respiratory Rate 18 18 26 H Blood Pressure 119/84 117/83 Pulse Oximetry 93 L 93 L 07/27/18 16:00 Temperature 98.0 F Pulse Rate 115 H Respiratory Rate 20 Blood Pressure 126/92 H Pulse Oximetry 95 Intake & Output 07/26/18 07/27/18 07/27/18 18:59 06:59 18:59 Intake Total 100 / 100 650 / 650 Output Total 3000 / 3000 100 / 100 200 / 200 Balance -2900 / -2900 -100 / -100 450 / 450 Weight 56.6 kg Intake: IV 100 / 100 Ancef 2 GM Premix Inj 2 gm In 100 / 100 100 ml @ 200 mls/hr IV.SIG DAILY SERGE Rx#:[id number] Oral 650 / 650 Output: Urine 100 / 100 200 / 200 Hemodialysis Amount 3000 / 3000 Other: # Voids 1 150 Date of Last Bowel Movement 07/26/18 # Bowel Movements 2 Narrative: GENERAL: Appears comfortable, sitting up in bed. NAD SKIN: Warm and dry. Right IJ HEAD: Normocephalic. EYES: No scleral icterus. No injection or drainage. NECK: Supple, trachea midline. No JVD. CARDIOVASCULAR: Regular rate and rhythm. Murmur RESPIRATORY: Breath sounds equal bilaterally. No accessory muscle use. GASTROINTESTINAL: Abdomen distended. MUSCULOSKELETAL: No cyanosis, or edema. BACK: Nontender without obvious deformity. No CVA tenderness. <Debbie Godinez - Last Filed: 07/27/18 18:21> Vital signs: Vital Signs 07/27/18 20:00 07/27/18 23:00 07/28/18 00:00 Temperature 98.0 F 99.5 F Pulse Rate 112 H 126 H Respiratory Rate 16 18 16 Blood Pressure 122/81 137/89 Pulse Oximetry 94 L 94 L 07/28/18 00:36 07/28/18 08:00 07/28/18 10:00 Temperature 98.8 F 98.5 F Pulse Rate 102 H 122 H 125 H Respiratory Rate 22 19 20 Blood Pressure 141/92 H 133/108 H Pulse Oximetry 92 L 92 L 07/28/18 11:55 07/28/18 14:55 07/28/18 15:15 Temperature 97.8 F 98.9 F Pulse Rate 128 H 118 H 116 H Respiratory Rate 20 18 18 Blood Pressure 139/105 H 119/89 120/80 Pulse Oximetry 94 L 97 98 07/28/18 15:30 07/28/18 16:51 Temperature 98.5 F Pulse Rate 115 H 117 H Respiratory Rate 18 17 Blood Pressure 118/86 112/75 Pulse Oximetry 97 94 L Intake & Output 07/27/18 07/28/18 07/28/18 18:59 06:59 18:59 Intake Total 650 / 650 600 / 600 760 / 760 Output Total 200 / 200 Balance 450 / 450 600 / 600 760 / 760 Weight 56.6 kg Intake: IV 100 / 100 0 / 0 Ancef 2 GM Premix Inj 2 gm In 100 / 100 100 ml @ 200 mls/hr IV.SIG DAILY SERGE Rx#:[id number] Oral 650 / 650 500 / 500 760 / 760 Output: Urine 200 / 200 Other: # Voids 150 3 1 Date of Last Bowel Movement 07/26/18 07/27/18 07/27/18 # Bowel Movements 2 0 <Bhargav Monge - Last Filed: 07/28/18 18:16> Assessment and Plan - Assessment (1) Acute kidney injury Code(s): N17.9 - Acute kidney failure, unspecified Status: Acute Plan: Acute kidney injury requiring hemodialysis Patient has sepsis with hx of IVDA, developed TED Has right IJ Hemodialysis catheter Hemodialysis on Wednesday/, Wednesday Plan Avoid nephrotoxins including IV contrast and gadolinium. Epogen with dialysis Continue renal diet, Continue Lasix daily, Maintain strict I+0's Patient continues to need hemodialysis with elevated creatinine and low urinary output. Will need to place permacath anticipating discharge discussed with ID and cleared for placement, orders placed. dock manager consulted for arrangement for outpatient hemodialysis. (2) Endocarditis Code(s): I38 - Endocarditis, valve unspecified Status: Acute Plan: On antibiotics Renal dose as appropriate (3) Hyperkalemia Code(s): E87.5 - Hyperkalemia Status: Acute Plan: Labs in AM K bath adjusted <Debbie Godinez - Last Filed: 07/27/18 18:21> - Assessment (1) Acute kidney injury Code(s): N17.9 - Acute kidney failure, unspecified Status: Acute Plan: Patient seen and examined, agree with above. Continue antibiotics as per ID. Watch for renal recovery. To arrange out patient HD. (2) Endocarditis Code(s): I38 - Endocarditis, valve unspecified Status: Acute (3) Hyperkalemia Code(s): E87.5 - Hyperkalemia Status: Acute <Bhargav Monge - Last Filed: 07/28/18 18:16>
[2018-07-28] MEDS: Heparin - SQ 10,000 UNITS/ML Vial SQ SCH ×3 (05:19→21:32)
[2018-07-28] MEDS: Famotidine 20 MG Tablet PO SCH ×2 (08:45→21:26)
[2018-07-28] MEDS: Furosemide 40 MG Tablet PO SCH (08:45)
[2018-07-28] MEDS: FLUoxetine 10 MG Capsule PO SCH (08:46)
[2018-07-28] MEDS: Polyethylene Glycol 3350 17 GM Packet PO SCH ×2 (08:55→21:29)
[2018-07-28] MEDS: ceFAZolin 2 GM Premix Inj 2 GM/100 ML BAG IV.SIG SCH (08:55)
[2018-07-28] MEDS: Senna/Docusate Sodium 8.6/50 MG Tablet PO SCH ×2 (08:55→21:29)
[2018-07-28] MEDS ORDERED: Vancomycin Inj 1,000 MG in Sodium Chlor 0.9% Inj 250 ML IV.SIG SCH (10:00)
--- NOTE | 2018-07-28 11:29 | P.PN ---
Subjective Interval history: This is a pleasant 28 y/o female with Infective tricuspid valve endocarditis, and multiorgan dysfunction secondary to endocarditis, has severe renal failure requiring renal replacement therapy, ID specialist following, she has also history of signing AMA. 07/26: Seen with nurse, no nausea, vomit or diarrhea, as per ID specialist okay to discharge and continue antibiotics while on HD if cleared by Nephrology awaiting for clearance. 07/27: Stable in her bedroom seen in the presence of Nurse Miss Roberto and student nurse, no nausea, vomit or diarrhea awaiting for clearance by Nephrology for discharge. 07/28: Seen early in am with insurance office manager and Nurse Katherine, the patient with her mother by her side, using bad language to the medical team, states we were make her starving and dehydrated, she was explained was asked for Perm cath to continue her Hemodialysis and also as per Parts Department Supervisor she is trying to get her approved for hemodialysis that will be done in this facility until insurance approves. all questions answered, no nausea, vomit or diarrhea. Physical Exam Vital signs: Vital Signs 07/27/18 12:00 07/27/18 13:25 07/27/18 16:00 Temperature 98.3 F 98.0 F Pulse Rate 104 H 92 H 115 H Respiratory Rate 18 26 H 20 Blood Pressure 117/83 126/92 H Pulse Oximetry 93 L 95 07/27/18 20:00 07/27/18 23:00 07/28/18 00:00 Temperature 98.0 F 99.5 F Pulse Rate 112 H 126 H Respiratory Rate 16 18 16 Blood Pressure 122/81 137/89 Pulse Oximetry 94 L 94 L 07/28/18 00:36 07/28/18 08:00 07/28/18 10:00 Temperature 98.8 F 98.5 F Pulse Rate 102 H 122 H 125 H Respiratory Rate 22 19 20 Blood Pressure 141/92 H 133/108 H Pulse Oximetry 92 L 92 L Intake & Output 07/27/18 07/28/18 07/28/18 18:59 06:59 18:59 Intake Total 650 / 650 600 / 600 Output Total 200 / 200 Balance 450 / 450 600 / 600 Weight 56.6 kg Intake: IV 100 / 100 Ancef 2 GM Premix Inj 2 gm In 100 / 100 100 ml @ 200 mls/hr IV.SIG DAILY SERGE Rx#:[id number] Oral 650 / 650 500 / 500 Output: Urine 200 / 200 Other: # Voids 150 3 Date of Last Bowel Movement 07/26/18 07/27/18 # Bowel Movements 2 Narrative: GENERAL: Appears comfortable, sitting up in bed. NAD SKIN: Warm and dry. Right IJ HEAD: Normocephalic. EYES: No scleral icterus. No injection or drainage. NECK: Supple, trachea midline. No JVD. CARDIOVASCULAR: Regular rate and rhythm. Murmur RESPIRATORY: Breath sounds equal bilaterally. No accessory muscle use. GASTROINTESTINAL: Abdomen distended. MUSCULOSKELETAL: No cyanosis, or edema. BACK: Nontender without obvious deformity. No CVA tenderness. Results - Labs CBC & Chem 7: 07/26/18 05:39 07/27/18 10:50 Laboratory Results - last 24 hr 07/27/18 10:50 Sodium 133 L Potassium 4.4 D Chloride 97 L Carbon Dioxide 26.6 Anion Gap 9 BUN 42 H Creatinine 4.97 H Estimated GFR 10 L Random Glucose 93 Calcium 8.1 L Phosphorus 4.3 D Albumin 1.7 L - Procedures 07/14 paracentesis Assessment and Plan - Plan 28-year-old female with infective tricuspid valve endocarditis and multiorgan dysfunction secondary to endocarditis. remains in heart failure and volume overload, and associated organ failure, including severe renal failure requiring renal replacement therapy. continue to daily pull fluid by HD. Broad spectrum abx. can leave ICU. overall prognosis is quite poor given history of leaving AMA: she will likely not survive if she continues to leave AMA. Acute hypoxemia- resolved Septic pulmonary emboli due to history of IV drug abuse Wean oxygen by nasal cannula for goal SPO2 greater than 90%, currently she is 95 % on room air. Fluid removal with dialysis, Infective tricuspid valve endocarditis Moderate tricuspid valve regurgitation Mixed septic and cardiogenic shock secondary to infective endocarditis- resolving. Sinus tachycardia Bedside echo shows large tricuspid regurgitation with moderate to severe TR With noncompliance and multiple AMA discharges, Not a candidate for valve replacement until she can complete antibiotic therapy and demonstrate medical compliance by not leaving AMA. Nephrology consulted for hemodialysis = 07/20. Continue IV antibiotics as per infectious disease. as per ID okay to discharge on antibiotics complete six weeks will finish on August 14 2018 continue on Hemodialysis awaiting for Nephrology clearance for discharge. IV drug dependence watch for signs of withdrawal prn oxycodone to prevent withdraws f/u confirmatory UDS. unclear if benzos and opiates are iatrogenic from OSH or illicit. avoid long-acting sedatives Last use of IVDU per patient was before last admission here 3-4 months ago, but I don't think patient is a reliable historian and will follow up with urine drug screen which is currently pending non in withdrawal at this time. Severe acute kidney injury requiring renal replacement therapy. Patient came with outside hospital dialysis access in place. Given risk-benefit, will continue OSH dialysis access. at this time not working will have perm cath later today. Acute anion gap metabolic acidosis- resolved Acute lactic acidosis- resolved Hyperkalemia- resolved Severe acute protein calorie malnutrition Acute liver injury- resolving. Acute Hypervolemic Hyponatremia- persistent. advance diet. 1500mL fluid restriction. continue to pull volume with HD liver injury secondary to shock. Hyponatremia is secondary to volume overload from cardiogenic shock. Ascitesultrasound abdomen to review if there is no fluid for paracentesis for therapeutic treatment. = Status post repeat paracentesis on 07/17. 2.1 L. //Suspected CHF exacerbation //tricuspid regurgitation. Seen on outside echo BNP above 5000, obviously affected by renal failure. Ascites is likely secondary CHF we will discuss with nephrology. Hopefully can increase fluid removed in dialysis. = Continue dialysis, fluid restrictions. Infective Endocarditis, Tricuspid valve Septic Shock- resolving. in last admission, MSSA repeat peripheral blood cultures x 2, on Cefazolin will continue while on Hemodialysis no need for other access, will continue to complete six weeks until August 14 2018. GI Prophylaxis pepcid DVT Prophylaxis -- SCDs Heparin subcutaneous. Code Status: Full code. Discussed Condition With: patient and her Mother in the room, present insurance office manager and nurse Miss Murphy. Discharge Planning: once cleared by Nephrology specialist. and found hemodialysis management and antibiotics as outpatient.
--- NOTE | 2018-07-28 12:42 | P.PNID ---
Subjective Remarks: She is a 28-year-old female, who was here at [facility] the first week of May and at that time she was diagnosed to have MSSA bacteremia, and highly suspicious for endocarditis. She had evidence of multiple pulmonary septic emboli, but her echocardiogram did not show any vegetation, but it did show moderate tricuspid valve regurgitation. She signed out AGAINST MEDICAL ADVICE, and it looks like she was admitted at [facility] and I do not have any details on that. She told me she was in that hospital for at least 1-1/2-2 weeks, and reportedly signed out AGAINST MEDICAL ADVICE again, and presented to [facility] and was admitted July 12, and signed out AMA again, and presented here at [facility] on July 14. I have some records from [facility], and her creatinine was elevated at that time. She had a right IJ Vas-Cath placement on July 12. Since admission here, her highest temperature has been 100.7. Her blood cultures have been negative. Her chest x-ray showing bilateral infiltrates. Her creatinine is elevated. She has had hemodialysis since admission. Patient currently is complaining of abdominal pain. She has had paracentesis yesterday , and had removal of about 2.1 L of ascites. She is complaining that it feels like her fluid has reaccumulated. She is currently afebrile. She has mild shortness of breath. She is currently on IV cefepime. Infectious disease consultation has been requested to assist with evaluation and treatment. Notes reviewed Temps ok All BC here negative D/W renal yesterday - ok for permacath from ID standpoint Antibiotics: Ancef Lines: Vascath - Line no evidence of infection Past Medical History: Cholecystitis (Acute) Asthma (Acute) Endocarditis Hemodialysis patient H/O tooth extraction History of dental surgery Allergies/Adverse Reactions: Allergies sweet potato Allergy (Severe, Verified 05/29/18 19:49) Hives amoxicillin Allergy (Intermediate, Verified 05/29/18 19:49) SWELLING, HIVES penicillin G Allergy (Intermediate, Verified 05/29/18 19:49) Hives Objective Vital Signs 07/27/18 13:25 07/27/18 16:00 07/27/18 20:00 Temperature 98.0 F 98.0 F Pulse Rate 92 H 115 H 112 H Respiratory Rate 26 H 20 16 Blood Pressure 126/92 H 122/81 Pulse Oximetry 95 94 L 07/27/18 23:00 07/28/18 00:00 07/28/18 00:36 Temperature 99.5 F Pulse Rate 126 H 102 H Respiratory Rate 18 16 22 Blood Pressure 137/89 Pulse Oximetry 94 L 07/28/18 08:00 07/28/18 10:00 07/28/18 11:55 Temperature 98.8 F 98.5 F 97.8 F Pulse Rate 122 H 125 H 128 H Respiratory Rate 19 20 20 Blood Pressure 141/92 H 133/108 H 139/105 H Pulse Oximetry 92 L 92 L 94 L Intake & Output 07/27/18 07/28/18 07/28/18 18:59 06:59 18:59 Intake Total 650 / 650 600 / 600 Output Total 200 / 200 Balance 450 / 450 600 / 600 Weight 56.6 kg Intake: IV 100 / 100 Ancef 2 GM Premix Inj 2 gm In 100 / 100 100 ml @ 200 mls/hr IV.SIG DAILY SERGE Rx#:[id number] Oral 650 / 650 500 / 500 Output: Urine 200 / 200 Other: # Voids 150 3 Date of Last Bowel Movement 07/26/18 07/27/18 07/27/18 # Bowel Movements 2 Lab - Chemistry Results 07/27/18 10:50 Sodium 133 L Potassium 4.4 D Chloride 97 L Carbon Dioxide 26.6 Anion Gap 9 BUN 42 H Creatinine 4.97 H Estimated GFR 10 L Random Glucose 93 Calcium 8.1 L Phosphorus 4.3 D Albumin 1.7 L Imaging: ITS Impressions Abdomen/Pelvis CT 07/13/18 20:07 CONCLUSION: 1. Bibasilar patchy airspace disease and minimal pleural fluid. 2. Moderate amount of diffuse ascites as well as anasarca. 3. Nonobstructive bowel gas pattern with poor delineation of the bowel secondary to anasarca, lack of intravenous and oral contrast. 4. Cardiomegaly. Chest X-Ray 07/15/18 06:00 CONCLUSION: 1. No significant interval change with persistent patchy bilateral airspace disease. Paracentesis Ultrasound 07/17/18 00:00 CONCLUSION: 1. Uncomplicated paracentesis. Physical Exam: GENERAL: awake and alert, NAD. SKIN: Cool and dry. No generalized rash HEAD: Atraumatic. Normocephalic. No temporal wasting, or tenderness. EYES: [place] conjunctiva. No petechia or hemorrhage. No scleral icterus. No injection or drainage. EARS, NOSE AND THROAT: Mucous membranes pink and moist. No oral lesions noted. NECK: Trachea midline. Supple and not tender, no meningeal signs CARDIOVASCULAR: Regular rate and rhythm. (+) systolic murmur in L precordium, no rub. RESPIRATORY: Clear to auscultation. Breath sounds equal bilaterally. No rales , wheezing or rhonchi ABDOMEN: Distended abdomen, diffusely tender, no guarding or rebound. Bowel sounds present and normoactive. EXTREMITIES: No clubbing, cyanosis. Has mild bilateral pedal edema. NEURO: Grossly non-focal PSYCHIATRIC: Normal affect, calm and cooperative. LINE: DANIELCatarino ramya with no evidence of infection Assessment and Plan - Plan Impression Episode of MSSA sepsis last May 2018, very suspicious for IE 2 recent hospitalizations at [facility] and [place], no details on hospitalization at [facility] Renal failure, now requiring hemodialysis Hepatitis C Rebekah in [facility] 07/14 Known IV drug use Very poor medical compliance Recommendationl Continue IV Ancef for MSSA Very tricky trying to determine end date of her Rx since she has signed out AMA multiple times - she has been in the hospital at least since 07/04 - [facility] and [facility] - will plan 6 weeks and anticipated end date will be August 14 Patient could complete her Rx as outpatient and can give Abx with her HD - she will gwet Ancef 2 gm IV with each HD, end date Aug 14 - nephrology following and no plans noted for HD on D/C - she will not need any other venous access for her IV Abx, and will be able to use her HD access and give Abx with her HD Patient is clinically stable from ID standpoint I will be available prn Please call when patient ready for D/C so I can fill out Abx infusion form
[2018-07-28] MEDS ORDERED: fentaNYL Citrate Inj 250 MCG/5 ML Ampul ONE (13:28)
--- NOTE | 2018-07-28 13:48 | P.PNNP ---
Subjective Interval history: Plan for perma cath placement today, NPO. Hemodialysis today approximately only 1 hour done and vas cath flow was poor. <Debbie Godinez - Last Filed: 07/28/18 13:42> Physical Exam Vital signs: Vital Signs 07/27/18 16:00 07/27/18 20:00 07/27/18 23:00 Temperature 98.0 F 98.0 F Pulse Rate 115 H 112 H Respiratory Rate 20 16 18 Blood Pressure 126/92 H 122/81 Pulse Oximetry 95 94 L 07/28/18 00:00 07/28/18 00:36 07/28/18 08:00 Temperature 99.5 F 98.8 F Pulse Rate 126 H 102 H 122 H Respiratory Rate 16 22 19 Blood Pressure 137/89 141/92 H Pulse Oximetry 94 L 92 L 07/28/18 10:00 07/28/18 11:55 Temperature 98.5 F 97.8 F Pulse Rate 125 H 128 H Respiratory Rate 20 20 Blood Pressure 133/108 H 139/105 H Pulse Oximetry 92 L 94 L Intake & Output 07/27/18 07/28/18 07/28/18 18:59 06:59 18:59 Intake Total 650 / 650 600 / 600 0 / 0 Output Total 200 / 200 Balance 450 / 450 600 / 600 0 / 0 Weight 56.6 kg Intake: IV 100 / 100 0 / 0 Ancef 2 GM Premix Inj 2 gm In 100 / 100 100 ml @ 200 mls/hr IV.SIG DAILY SERGE Rx#:[id number] Oral 650 / 650 500 / 500 Output: Urine 200 / 200 Other: # Voids 150 3 Date of Last Bowel Movement 07/26/18 07/27/18 07/27/18 # Bowel Movements 2 Narrative: GENERAL: Appears comfortable, sitting up in bed. NAD SKIN: Warm and dry. Right IJ HEAD: Normocephalic. EYES: No scleral icterus. No injection or drainage. NECK: Supple, trachea midline. No JVD. CARDIOVASCULAR: Regular rate and rhythm. Murmur RESPIRATORY: Breath sounds equal bilaterally. No accessory muscle use. GASTROINTESTINAL: Abdomen distended. MUSCULOSKELETAL: No cyanosis, or edema. BACK: Nontender without obvious deformity. No CVA tenderness. <Debbie Godinez - Last Filed: 07/28/18 13:42> Vital signs: Vital Signs 07/27/18 20:00 07/27/18 23:00 07/28/18 00:00 Temperature 98.0 F 99.5 F Pulse Rate 112 H 126 H Respiratory Rate 16 18 16 Blood Pressure 122/81 137/89 Pulse Oximetry 94 L 94 L 07/28/18 00:36 07/28/18 08:00 07/28/18 10:00 Temperature 98.8 F 98.5 F Pulse Rate 102 H 122 H 125 H Respiratory Rate 22 19 20 Blood Pressure 141/92 H 133/108 H Pulse Oximetry 92 L 92 L 07/28/18 11:55 07/28/18 14:55 07/28/18 15:15 Temperature 97.8 F 98.9 F Pulse Rate 128 H 118 H 116 H Respiratory Rate 20 18 18 Blood Pressure 139/105 H 119/89 120/80 Pulse Oximetry 94 L 97 98 07/28/18 15:30 07/28/18 16:51 Temperature 98.5 F Pulse Rate 115 H 117 H Respiratory Rate 18 17 Blood Pressure 118/86 112/75 Pulse Oximetry 97 94 L Intake & Output 07/27/18 07/28/18 07/28/18 18:59 06:59 18:59 Intake Total 650 / 650 600 / 600 760 / 760 Output Total 200 / 200 Balance 450 / 450 600 / 600 760 / 760 Weight 56.6 kg Intake: IV 100 / 100 0 / 0 Ancef 2 GM Premix Inj 2 gm In 100 / 100 100 ml @ 200 mls/hr IV.SIG DAILY SERGE Rx#:[id number] Oral 650 / 650 500 / 500 760 / 760 Output: Urine 200 / 200 Other: # Voids 150 3 1 Date of Last Bowel Movement 07/26/18 07/27/18 07/27/18 # Bowel Movements 2 0 <Bhargav Monge - Last Filed: 07/28/18 18:25> Assessment and Plan - Assessment (1) Acute kidney injury Code(s): N17.9 - Acute kidney failure, unspecified Status: Acute Plan: Acute kidney injury requiring hemodialysis Patient has sepsis with hx of IVDA, developed TED Has right IJ Hemodialysis catheter Hemodialysis on Wednesday/, Wednesday Plan Avoid nephrotoxins including IV contrast and gadolinium. Epogen with dialysis Continue renal diet, Continue Lasix daily, Maintain strict I+0's Patient continues to need hemodialysis with elevated creatinine and low urinary output. Permacath placement planned for ID, cleared per ID mutuel department manager consulted for arrangement for outpatient hemodialysis, orders signed for transitional Hemodialysis today but unable to complete secondary to poor flow with vas cath will repeat tomorrow after perma cath placement. (2) Endocarditis Code(s): I38 - Endocarditis, valve unspecified Status: Acute Plan: On antibiotics Renal dose as appropriate (3) Hyperkalemia Code(s): E87.5 - Hyperkalemia Status: Acute Plan: Labs ordered for AM <Debbie Godinez - Last Filed: 07/28/18 13:42> - Assessment (1) Acute kidney injury Code(s): N17.9 - Acute kidney failure, unspecified Status: Acute Plan: Patient seen and examined, agree with above. To get PermCath and continue HD. For out patient HD arrangement. (2) Endocarditis Code(s): I38 - Endocarditis, valve unspecified Status: Acute (3) Hyperkalemia Code(s): E87.5 - Hyperkalemia Status: Acute <Bhargav Monge - Last Filed: 07/28/18 18:25>
[2018-07-28] MEDS ORDERED: *Heparin 10,000 UNITS/10 ML Vial Periprocedural ONLY ONE (14:00)
[2018-07-28] MEDS ORDERED: Lidocaine 1%/Epinephrine 1:100,000 Inj 20 ML Vial ONE (14:00)
--- NOTE | 2018-07-28 14:38 | P.RAD ---
Post Procedure Progress Note - Pre Procedure Diagnosis (1) End-stage renal disease (ESRD) - Post Procedure Diagnosis (1) End-stage renal disease (ESRD) - Procedure Information Procedure Date: 07/28/18 Supervising Radiologist: Kota Branham MD Estimated blood loss (mL): 5 Anesthesia: Local, Conscious Sedation - Plan of Activity Patient to Unit: [facility] Patient Condition: Poor Additional Comments: Right IJ PermCath placed without difficulty Catheter in good position OK for use. Full report to follow See PACS Report for procedural detail/treatment.
[2018-07-29] MEDS: Heparin - SQ 10,000 UNITS/ML Vial SQ SCH ×3 (06:25→21:54)
[2018-07-29 07:05] LABS: Baso # (Auto) 0.1 th/mm3 (0.0-0.2); Baso % (Auto) 1.1 % (0.0-2.0); Eos # (Auto) 0.1 th/mm3 (0.0-0.4); Eos % (Auto) 0.6 % (0.0-4.0); Hematocrit 33.4 % (35.0-46.0); Hemoglobin 10.3 gm/dL (11.6-15.3); Lymph # (Auto) 3.2 th/mm3 (1.0-4.8); Lymph % (Auto) 28.4 % (9.0-44.0); Mean Corpuscular Hemoglobin 30.1 pg (27.0-34.0); Mean Corpuscular Volume 97.4 fL (80.0-100.0); Mean Platelet Volume 8.6 fL (7.0-11.0); Mono # (Auto) 1.4 th/mm3 (0.0-0.9); Mono % (Auto) 12.3 % (0.0-8.0); Neut # (Auto) 6.5 th/mm3 (1.8-7.7); Neut % (Auto) 57.6 % (16.0-70.0); Platelet Count 189 th/mm3 (150-450); Red Blood Count 3.43 mil/mm3 (4.00-5.30); Red Cell Distribution Width 26.5 % (11.6-17.2); White Blood Count 11.3 th/mm3 (4.0-11.0)
[2018-07-29 07:22] LABS: Mean Corpuscular HGB Conc 30.9 % (32.0-36.0)
[2018-07-29 08:24] LABS: Dimorphic RBC Present; Platelet Estimate Normal (Normal); Platelet Morphology Normal (Normal)
[2018-07-29 08:39] LABS: Albumin 1.9 g/dL (3.4-5.0); Calcium 8.5 mg/dL (8.5-10.1); Carbon Dioxide 21.1 meq/L (21.0-32.0); Potassium 5.7 meq/L (3.5-5.1)
[2018-07-29] MEDS: Heparin 10,000 UNITS/10 ML Vial (for IV use) OTHER PRN (09:39)
[2018-07-29] MEDS: FLUoxetine 10 MG Capsule PO SCH (11:30)
[2018-07-29] MEDS: ceFAZolin 2 GM Premix Inj 2 GM/100 ML BAG IV.SIG SCH (11:30)
[2018-07-29] MEDS: Famotidine 20 MG Tablet PO SCH ×3 (11:30→19:59)
[2018-07-29] MEDS: Senna/Docusate Sodium 8.6/50 MG Tablet PO SCH ×2 (11:31→19:59)
[2018-07-29] MEDS: Polyethylene Glycol 3350 17 GM Packet PO SCH ×2 (11:31→19:59)
[2018-07-29] MEDS: Furosemide 40 MG Tablet PO SCH (11:31)
--- NOTE | 2018-07-29 12:37 | IR ---
EXAM DATE: 07/28/2018 12:00 AM EDT AGE/SEX: 28 years / Female INDICATIONS: Patient with history of Renal Failure and Endocarditis in need of tunneled central veno us catheter placement for dialysis. CLINICAL DATA: This is the patient's initial encounter. Patient reports that signs and symptoms have been present for 1 day and indicates a pain score of 2/10. MEDICAL/SURGICAL HISTORY: Asthma. Cholecystitis, Endocarditis . Hemodialysis. COMPARISON: No prior exams available for comparison. FLUORO TIME (min): 2.83 IMAGE SERIES: 2 ACCESS SITE: Right internal jugular vein SEDATION TIME (min): 30 MEDICATION(S): 2 mg midazolam (Versed) IV 100 mcg fentanyl (Sublimaze) IV Prophylactic antibiotics were administered with appropriate pre-procedure timing. Vancomycin within 2 hrs of procedure, Ancef (or alternative) within 1 hr of procedure. DEVICE(S): 15 English double lumen 19 cm Cid II Plus Catheter . . PROCEDURE : 1. Ultrasound guided venipuncture. 2. Fluoroscopic guidance. 3. Central line placement. The risks, benefits and alternatives to the procedure were explained and verbal and written consent w as obtained. The site was prepped in sterile fashion. Full sterile technique was used, including ca p, mask, sterile gloves and gown and a large sterile sheet. Hand hygiene and 2% chlorhexidine prep w as utilized per protocol for cutaneous antisepsis with appropriate dry time for site. Sterile gel an d sterile probe cover were utilized for ultrasound guidance. The skin and subcutaneous tissues were infiltrated with local anesthetic solution. A suitable site a leticia the right internal jugular vein was selected with ultrasound and fluoroscopic guidance. A small incision was made. The vein was accessed under direct ultrasound visualization using the micropunct ure technique. The micropuncture set was exchanged for a 0.035 wire. The tract was dilated. The ca theter was advanced into position under direct fluoroscopic visualization, and was advanced with the tip at the junction of the superior vena cava and rt atrium. The catheter was fixed in place with mascorro ture and a sterile dressing was applied. The patient tolerated the procedure well and there were no complications. CONCLUSION: 1. Uncomplicated tunneled dialysis catheter placement as above. Electronically signed by: Kota Branham MD 07/29/2018 12:36 PM EDT
[2018-07-29] MEDS ORDERED: Sodium Polystyrene Sulfonate/Sorbitol Liq 15 GM/60 ML UDC PO ONE (14:56)
--- NOTE | 2018-07-29 14:56 | IR ---
EXAM DATE: 07/28/2018 12:00 AM EDT AGE/SEX: 28 years / Female INDICATIONS: Patient with history of Renal Failure and Endocarditis presents with temporary central venous catheter in need of removal prior to placement of tunneled dialysis catheter. CLINICAL DATA: This is the patient's initial encounter. Patient reports that signs and symptoms have been present for 1 day and indicates a pain score of 2/10. MEDICAL/SURGICAL HISTORY: Asthma. Endocarditis, Cholecysitis . Hemodialysis. COMPARISON: No prior exams available for comparison. IMAGE SERIES: ACCESS SITE: MEDICATION(S): 2 mg midazolam (Versed) IV 100 mcg fentanyl (Sublimaze) IV Prophylactic antibiotics were administered with appropriate pre-procedure timing. Vancomycin within 2 hrs of procedure, Ancef (or alternative) within 1 hr of procedure. DEVICE(S): PROCEDURE: 1. Temporary central venous catheter removal. The prescribed catheter was removed intact and hemostasis was achieved with direct pressure. The sit e was dressed appropriately. The patient tolerated the procedure well. CONCLUSION: 1. Uncomplicated catheter removal. Electronically signed by: Kota Branham MD 07/29/2018 2:54 PM EDT
--- NOTE | 2018-07-29 15:34 | P.PN ---
Subjective Interval history: This is a pleasant 28 y/o female with Infective tricuspid valve endocarditis, and multiorgan dysfunction secondary to endocarditis, has severe renal failure requiring renal replacement therapy, ID specialist following, she has also history of signing AMA. 07/26: Seen with nurse, no nausea, vomit or diarrhea, as per ID specialist okay to discharge and continue antibiotics while on HD if cleared by Nephrology awaiting for clearance. 07/27: Stable in her bedroom seen in the presence of Nurse Miss Roberto and student nurse, no nausea, vomit or diarrhea awaiting for clearance by Nephrology for discharge. 07/28: Seen early in am with flight kitchen manager and Nurse Miss Murphy, the patient with her mother by her side, using bad language to the medical team, states we were make her starving and dehydrated, she was explained was asked for Perm cath to continue her Hemodialysis and also as per Ammonium Sulfate Operator she is trying to get her approved for hemodialysis that will be done in this facility until insurance approves. all questions answered. 07/29: Seen in her bedroom in the presence of nurse Miss Silveira, no complaint, status post perm cath placement but did not worked for Dialysis today, was recommended for ICE on Perm cath place and will have Hemodialysis tomorrow, Hepatitis C Rebekah in [facility] 07/14, Very poor medical compliance, recommended by ID specialist to Continue IV Ancef for MSSA, plan is to continue Antibiotics until August 14, to continue antibiotics Ancef 2 grams IV with each Hemodialysis, stable from ID specialist standpoint, call ID when patient ready for discharge. Physical Exam Vital signs: Vital Signs 07/28/18 16:51 07/28/18 20:00 07/28/18 21:36 Temperature 98.5 F 98.2 F Pulse Rate 117 H 124 H 130 H Respiratory Rate 17 21 24 Blood Pressure 112/75 129/81 Pulse Oximetry 94 L 98 07/29/18 00:24 07/29/18 07:50 07/29/18 08:00 Temperature 97.9 F 98.6 F Pulse Rate 125 H 120 H Respiratory Rate 17 19 19 Blood Pressure 119/97 H 136/96 H Pulse Oximetry 93 L 93 L 07/29/18 12:57 Temperature 97.1 F L Pulse Rate 115 H Respiratory Rate 19 Blood Pressure 129/99 H Pulse Oximetry 97 Intake & Output 07/28/18 07/29/18 07/29/18 18:59 06:59 18:59 Intake Total 760 / 760 90 / 90 Output Total 0 / 0 Balance 760 / 760 90 / 90 0 / 0 Weight 56.6 kg Intake: IV 0 / 0 Oral 760 / 760 90 / 90 Output: Hemodialysis Amount 0 / 0 Other: # Voids 1 4 Date of Last Bowel Movement 07/27/18 07/27/18 # Bowel Movements 0 Narrative: GENERAL: Appears comfortable, sitting up in bed. NAD SKIN: Warm and dry. Right IJ HEAD: Normocephalic. EYES: No scleral icterus. No injection or drainage. NECK: Supple, trachea midline. No JVD. CARDIOVASCULAR: Regular rate and rhythm. Murmur RESPIRATORY: Breath sounds equal bilaterally. No accessory muscle use. GASTROINTESTINAL: Abdomen distended. MUSCULOSKELETAL: No cyanosis, or edema. BACK: Nontender without obvious deformity. No CVA tenderness. Results - Labs CBC & Chem 7: 07/29/18 05:48 07/29/18 05:48 Laboratory Results - last 24 hr 07/29/18 07/29/18 05:48 05:48 WBC 11.3 H RBC 3.43 L Hgb 10.3 L Hct 33.4 L MCV 97.4 MCH 30.1 MCHC 30.9 L RDW 26.5 H Plt Count 189 MPV 8.6 Prelim Diff (Auto) Slide review pending Neut % (Auto) 57.6 Lymph % (Auto) 28.4 Collin % (Auto) 12.3 H Eos % (Auto) 0.6 Baso % (Auto) 1.1 Neut # (Auto) 6.5 Lymph # (Auto) 3.2 Collin # (Auto) 1.4 H Eos # (Auto) 0.1 Baso # (Auto) 0.1 WBC Differential . Diff Scan Auto diff confirmed Differential Comment . Platelet Estimate Normal Platelet Morphology Normal Dimorphic RBCs Present H Sodium 130 L Potassium 5.7 H D Chloride 94 L Carbon Dioxide 21.1 Anion Gap 15 BUN 64 H Creatinine 6.49 H Estimated GFR 8 L Random Glucose 85 Calcium 8.5 Phosphorus 6.0 H D Albumin 1.9 L - Imaging Impressions Catheter Placement 07/28/18 00:00 CONCLUSION: 1. Uncomplicated tunneled dialysis catheter placement as above. Tube Removal 07/28/18 00:00 CONCLUSION: 1. Uncomplicated catheter removal. - Procedures 9/13 paracentesis Assessment and Plan - Plan 28-year-old female with infective tricuspid valve endocarditis and multiorgan dysfunction secondary to endocarditis. remains in heart failure and volume overload, and associated organ failure, including severe renal failure requiring renal replacement therapy. continue to daily pull fluid by HD. Broad spectrum abx. can leave ICU. overall prognosis is quite poor given history of leaving AMA: she will likely not survive if she continues to leave AMA. Acute hypoxemia- resolved Septic pulmonary emboli due to history of IV drug abuse Wean oxygen by nasal cannula for goal SPO2 greater than 90%, currently she is 95 % on room air. Fluid removal with dialysis. Infective tricuspid valve endocarditis Moderate tricuspid valve regurgitation Mixed septic and cardiogenic shock secondary to infective endocarditis- resolving. Sinus tachycardia Bedside echo shows large tricuspid regurgitation with moderate to severe TR With noncompliance and multiple AMA discharges, Not a candidate for valve replacement until she can complete antibiotic therapy and demonstrate medical compliance by not leaving AMA. Nephrology consulted for hemodialysis 07/29: Seen in her bedroom in the presence of nurse Miss Silveira, no complaint, status post perm cath placement but did not worked for Dialysis today, was recommended for ICE on Perm cath place and will have Hemodialysis tomorrow, Hepatitis C Rebekah in UC 07/14, Very poor medical compliance, recommended by ID specialist to Continue IV Ancef for MSSA, plan is to continue Antibiotics until August 14, to continue antibiotics Ancef 2 grams IV with each Hemodialysis, stable from ID specialist standpoint, call ID when patient ready for discharge. IV drug dependence watch for signs of withdrawal prn oxycodone to prevent withdraws f/u confirmatory UDS. unclear if benzos and opiates are iatrogenic from OSH or illicit. avoid long-acting sedatives Last use of IVDU per patient was before last admission here 3-4 months ago, but I don't think patient is a reliable historian and will follow up with urine drug screen which is currently pending non in withdrawal at this time. Severe acute kidney injury requiring renal replacement therapy. Patient came with outside hospital dialysis access in place. Given risk-benefit, will continue OSH dialysis access. at this time not working will have perm cath later today. Acute anion gap metabolic acidosis- resolved Acute lactic acidosis- resolved Hyperkalemia- resolved Severe acute protein calorie malnutrition Acute liver injury- resolving. Acute Hypervolemic Hyponatremia- persistent. advance diet. 1500mL fluid restriction. continue to pull volume with HD liver injury secondary to shock. Hyponatremia is secondary to volume overload from cardiogenic shock. Ascitesultrasound abdomen to review if there is no fluid for paracentesis for therapeutic treatment. = Status post repeat paracentesis on 07/17. 2.1 L. //Suspected CHF exacerbation //tricuspid regurgitation. Seen on outside echo BNP above 5000, obviously affected by renal failure. Ascites is likely secondary CHF we will discuss with nephrology. Hopefully can increase fluid removed in dialysis. = Continue dialysis, fluid restrictions. GI Prophylaxis pepcid DVT Prophylaxis -- SCDs Heparin subcutaneous. Code Status: Full code. Discussed Condition With: patient and Nurse. Discharge Planning: once cleared by Nephrology specialist. and found hemodialysis management and antibiotics as outpatient.
--- NOTE | 2018-07-29 21:35 | P.PNNP ---
Subjective Interval history: Patient is alert, no SOB, eating well. Physical Exam Vital signs: Vital Signs 07/28/18 21:36 07/29/18 00:24 07/29/18 07:50 Temperature 97.9 F 98.6 F Pulse Rate 130 H 125 H 120 H Respiratory Rate 24 17 19 Blood Pressure 119/97 H 136/96 H Pulse Oximetry 93 L 93 L 07/29/18 08:00 07/29/18 12:57 07/29/18 17:00 Temperature 97.1 F L Pulse Rate 115 H 115 H Respiratory Rate 19 19 16 Blood Pressure 129/99 H Pulse Oximetry 97 07/29/18 20:00 Temperature 98.0 F Pulse Rate 109 H Respiratory Rate 17 Blood Pressure 131/96 H Pulse Oximetry 95 Intake & Output 07/29/18 07/29/18 07/30/18 06:59 18:59 06:59 Intake Total 90 / 90 800 / 800 Output Total 0 / 0 Balance 90 / 90 800 / 800 Weight 56.6 kg Intake: IV 100 / 100 Ancef 2 GM Premix Inj 2 gm In 100 / 100 100 ml @ 200 mls/hr IV.SIG DAILY SERGE Rx#:[id number] Oral 90 / 90 700 / 700 Output: Urine 0 / 0 Stool 0 / 0 Hemodialysis Amount 0 / 0 Other: # Voids 4 Date of Last Bowel Movement 07/27/18 Narrative: GENERAL: Appears comfortable, sitting up in bed. NAD SKIN: Warm and dry. Right IJ HEAD: Normocephalic. EYES: No scleral icterus. No injection or drainage. NECK: Supple, trachea midline. No JVD. CARDIOVASCULAR: Regular rate and rhythm. Murmur RESPIRATORY: Breath sounds equal bilaterally. No accessory muscle use. GASTROINTESTINAL: Abdomen distended. MUSCULOSKELETAL: No cyanosis, or edema. BACK: Nontender without obvious deformity. No CVA tenderness. Assessment and Plan - Assessment (1) Acute kidney injury Code(s): N17.9 - Acute kidney failure, unspecified Status: Acute Plan: Patient seen and examined, agree with above. To get PermCath and continue HD. For out patient HD arrangement. (1) Acute kidney injury Code(s): N17.9 - Acute kidney failure, unspecified Status: Acute Plan: Acute kidney injury requiring hemodialysis Patient has sepsis with hx of IVDA, developed TED Has right IJ Hemodialysis catheter Hemodialysis on Wednesday/, Wednesday Plan Avoid nephrotoxins including IV contrast and gadolinium. Epogen with dialysis Continue renal diet, Continue Lasix daily, Maintain strict I+0's Patient continues to need hemodialysis with elevated creatinine and low urinary output. Permacath placement planned for ID, cleared per ID horse stud manager consulted for arrangement for outpatient hemodialysis, orders signed for transitional Hemodialysis today but unable to complete secondary to poor flow with PermCath will repeat tomorrow , possibly has tunnel edema. (2) Endocarditis Code(s): I38 - Endocarditis, valve unspecified Status: Acute Plan: On antibiotics Renal dose as appropriate (3) Hyperkalemia Code(s): E87.5 - Hyperkalemia Status: Acute Plan: Given kayexalate. Told to restrict oral K. HD again in AM. (2) Endocarditis Code(s): I38 - Endocarditis, valve unspecified Status: Acute Plan: On antibiotics Renal dose as appropriate (3) Hyperkalemia Code(s): E87.5 - Hyperkalemia Status: Acute Plan: Labs ordered for AM
[2018-07-30] MEDS: Heparin - SQ 10,000 UNITS/ML Vial SQ SCH ×3 (06:35→23:40)
[2018-07-30] MEDS: Senna/Docusate Sodium 8.6/50 MG Tablet PO SCH ×2 (08:48→20:44)
[2018-07-30] MEDS: Polyethylene Glycol 3350 17 GM Packet PO SCH ×2 (08:48→20:43)
[2018-07-30] MEDS: FLUoxetine 10 MG Capsule PO SCH (08:48)
[2018-07-30] MEDS: ceFAZolin 2 GM Premix Inj 2 GM/100 ML BAG IV.SIG SCH (08:48)
[2018-07-30] MEDS: Furosemide 40 MG Tablet PO SCH (08:49)
[2018-07-30] MEDS: Famotidine 20 MG Tablet PO SCH ×2 (08:49→20:44)
--- NOTE | 2018-07-30 11:23 | P.PNNP ---
Subjective Interval history: Patient is alert, mild pain at [facility] site. Physical Exam Vital signs: Vital Signs 07/29/18 12:57 07/29/18 17:00 07/29/18 20:00 Temperature 97.1 F L 98.0 F Pulse Rate 115 H 115 H 109 H Respiratory Rate 19 16 17 Blood Pressure 129/99 H 131/96 H Pulse Oximetry 97 95 07/30/18 00:50 07/30/18 08:00 Temperature 97.4 F L 97.9 F Pulse Rate 116 H 115 H Respiratory Rate 18 17 Blood Pressure 127/99 H 127/85 Pulse Oximetry 97 96 Intake & Output 07/29/18 07/30/18 07/30/18 18:59 06:59 18:59 Intake Total 800 / 800 400 / 400 Output Total 0 / 0 Balance 800 / 800 400 / 400 Weight 56.6 kg Intake: IV 100 / 100 Ancef 2 GM Premix Inj 2 gm In 100 / 100 100 ml @ 200 mls/hr IV.SIG DAILY SERGE Rx#:[id number] Oral 700 / 700 400 / 400 Output: Urine 0 / 0 Stool 0 / 0 Hemodialysis Amount 0 / 0 Other: # Voids 1 Date of Last Bowel Movement 07/27/18 07/29/18 Narrative: GENERAL: Appears comfortable, sitting up in bed. NAD SKIN: Warm and dry. Right IJ HEAD: Normocephalic. EYES: No scleral icterus. No injection or drainage. NECK: Supple, trachea midline. No JVD. CARDIOVASCULAR: Regular rate and rhythm. Murmur RESPIRATORY: Breath sounds equal bilaterally. No accessory muscle use. GASTROINTESTINAL: Abdomen distended. MUSCULOSKELETAL: No cyanosis, or edema. BACK: Nontender without obvious deformity. No CVA tenderness. Assessment and Plan - Assessment (1) Acute kidney injury Code(s): N17.9 - Acute kidney failure, unspecified Status: Acute Plan: Patient seen and examined, agree with above. To get PermCath and continue HD. For out patient HD arrangement. (1) Acute kidney injury Code(s): N17.9 - Acute kidney failure, unspecified Status: Acute Plan: Acute kidney injury requiring hemodialysis Patient has sepsis with hx of IVDA, developed TED Has right IJ Hemodialysis catheter Hemodialysis on Wednesday/, Wednesday Plan Avoid nephrotoxins including IV contrast and gadolinium. Epogen with dialysis Continue renal diet, Continue Lasix daily, Maintain strict I+0's Patient continues to need hemodialysis with elevated creatinine and low urinary output. Permacath placement planned for ID, cleared per ID coffee shop manager consulted for arrangement for outpatient hemodialysis, orders signed for transitional Hemodialysis yesterday was unable to complete secondary to poor flow with PermCath will repeat tomorrow , possibly has tunnel edema. HD again today. (2) Endocarditis Code(s): I38 - Endocarditis, valve unspecified Status: Acute Plan: On antibiotics Renal dose as appropriate (3) Hyperkalemia Code(s): E87.5 - Hyperkalemia Status: Acute Plan: Given kayexalate yesterday. Told to restrict oral K. HD again today. (2) Endocarditis Code(s): I38 - Endocarditis, valve unspecified Status: Acute Plan: On antibiotics Renal dose as appropriate (3) Hyperkalemia Code(s): E87.5 - Hyperkalemia Status: Acute Plan: Labs ordered for AM
--- NOTE | 2018-07-30 13:11 | P.PN ---
Subjective Interval history: This is a pleasant 28 y/o female with Infective tricuspid valve endocarditis, and multiorgan dysfunction secondary to endocarditis, has severe renal failure requiring renal replacement therapy, ID specialist following, she has also history of signing AMA. 07/26: Seen with nurse, no nausea, vomit or diarrhea, as per ID specialist okay to discharge and continue antibiotics while on HD if cleared by Nephrology awaiting for clearance. 07/27: Stable in her bedroom seen in the presence of Nurse Miss Roberto and student nurse, no nausea, vomit or diarrhea awaiting for clearance by Nephrology for discharge. 07/28: Seen early in am with manager front office and Nurse Miss Murphy, the patient with her mother by her side, using bad language to the medical team, states we were make her starving and dehydrated, she was explained was asked for Perm cath to continue her Hemodialysis and also as per Range Mounter she is trying to get her approved for hemodialysis that will be done in this facility until insurance approves. all questions answered. 07/29: Seen in her bedroom in the presence of nurse Miss Silveira, no complaint, status post perm cath placement but did not worked for Dialysis today, was recommended for ICE on Perm cath place and will have Hemodialysis tomorrow, Hepatitis C Rebekah in UC 07/14, Very poor medical compliance, recommended by ID specialist to Continue IV Ancef for MSSA, plan is to continue Antibiotics until August 14, to continue antibiotics Ancef 2 grams IV with each Hemodialysis, stable from ID specialist standpoint, call ID when patient ready for discharge. 07/30: Stable seen in the presence of nurse at all times while I was talking with patient, no new issues, her perm cath did not worked for dialysis will be re evaluated by Interventional radiology on 08/01/18 , no nausea, vomit or diarrhea. Physical Exam Vital signs: Vital Signs 07/29/18 17:00 07/29/18 20:00 07/30/18 00:50 Temperature 98.0 F 97.4 F L Pulse Rate 115 H 109 H 116 H Respiratory Rate 16 17 18 Blood Pressure 131/96 H 127/99 H Pulse Oximetry 95 97 07/30/18 08:00 Temperature 97.9 F Pulse Rate 115 H Respiratory Rate 17 Blood Pressure 127/85 Pulse Oximetry 96 Intake & Output 07/29/18 07/30/18 07/30/18 18:59 06:59 18:59 Intake Total 800 / 800 400 / 400 100 / 100 Output Total 0 / 0 Balance 800 / 800 400 / 400 100 / 100 Weight 56.6 kg Intake: IV 100 / 100 100 / 100 Ancef 2 GM Premix Inj 2 gm In 100 / 100 100 / 100 100 ml @ 200 mls/hr IV.SIG DAILY SERGE Rx#:[id number] Oral 700 / 700 400 / 400 Output: Urine 0 / 0 Stool 0 / 0 Hemodialysis Amount 0 / 0 Other: # Voids 1 Date of Last Bowel Movement 07/27/18 07/29/18 Narrative: GENERAL: Appears comfortable, sitting up in bed. NAD SKIN: Warm and dry. Right IJ HEAD: Normocephalic. EYES: No scleral icterus. No injection or drainage. NECK: Supple, trachea midline. No JVD. CARDIOVASCULAR: Regular rate and rhythm. Murmur RESPIRATORY: Breath sounds equal bilaterally. No accessory muscle use. GASTROINTESTINAL: Abdomen distended. MUSCULOSKELETAL: No cyanosis, or edema. BACK: Nontender without obvious deformity. No CVA tenderness. Results - Labs CBC & Chem 7: 07/29/18 05:48 07/31/18 05:06 - Imaging Impressions Tube Removal 07/28/18 00:00 CONCLUSION: 1. Uncomplicated catheter removal. - Procedures 07/14 paracentesis Assessment and Plan - Plan 28-year-old female with infective tricuspid valve endocarditis and multiorgan dysfunction secondary to endocarditis. remains in heart failure and volume overload, and associated organ failure, including severe renal failure requiring renal replacement therapy. continue to daily pull fluid by HD. Broad spectrum abx. can leave ICU. overall prognosis is quite poor given history of leaving AMA: she will likely not survive if she continues to leave AMA. Acute hypoxemia- resolved Septic pulmonary emboli due to history of IV drug abuse Wean oxygen by nasal cannula for goal SPO2 greater than 90%, currently she is 95 % on room air. Fluid removal with dialysis. Infective tricuspid valve endocarditis Moderate tricuspid valve regurgitation Mixed septic and cardiogenic shock secondary to infective endocarditis- resolving. Sinus tachycardia Bedside echo shows large tricuspid regurgitation with moderate to severe TR With noncompliance and multiple AMA discharges, Not a candidate for valve replacement until she can complete antibiotic therapy and demonstrate medical compliance by not leaving AMA. Nephrology consulted for hemodialysis 07/29: Seen in her bedroom in the presence of nurse Miss Silveira, no complaint, status post perm cath placement but did not worked for Dialysis today, was recommended for ICE on Perm cath place and will have Hemodialysis tomorrow, Hepatitis C Rebekah in UC 07/14, Very poor medical compliance, recommended by ID specialist to Continue IV Ancef for MSSA, plan is to continue Antibiotics until August 14, to continue antibiotics Ancef 2 grams IV with each Hemodialysis, stable from ID specialist standpoint, call ID when patient ready for discharge. IV drug dependence watch for signs of withdrawal prn oxycodone to prevent withdraws f/u confirmatory UDS. unclear if benzos and opiates are iatrogenic from OSH or illicit. avoid long-acting sedatives Last use of IVDU per patient was before last admission here 3-4 months ago, but I don't think patient is a reliable historian and will follow up no signs of withdrawal. Severe acute kidney injury requiring renal replacement therapy. Patient came with outside hospital dialysis access in place. Given risk-benefit, will continue OSH dialysis access. continue not working the Perm cath will be reevaluated on Wednesday08/01/18 by interventional radiology. Acute anion gap metabolic acidosis- resolved Acute lactic acidosis- resolved Hyperkalemia- resolved Severe acute protein calorie malnutrition Acute liver injury- resolving. Acute Hypervolemic Hyponatremia- persistent. advance diet. 1500mL fluid restriction. continue to pull volume with HD liver injury secondary to shock. Hyponatremia is secondary to volume overload from cardiogenic shock. Ascitesultrasound abdomen to review if there is no fluid for paracentesis for therapeutic treatment. = Status post repeat paracentesis on 07/17. 2.1 L. //Suspected CHF exacerbation //tricuspid regurgitation. Seen on outside echo BNP above 5000, obviously affected by renal failure. Ascites is likely secondary CHF we will discuss with nephrology. Hopefully can increase fluid removed in dialysis. = Continue dialysis, fluid restrictions. GI Prophylaxis pepcid DVT Prophylaxis -- SCDs Heparin subcutaneous. Code Status: Full code. Discussed Condition With: patient and nurse. Discharge Planning: once cleared by Nephrology specialist. and found hemodialysis management and antibiotics as outpatient.
[2018-07-30] MEDS: Heparin 10,000 UNITS/10 ML Vial (for IV use) OTHER PRN (14:36)
[2018-07-30] MEDS ORDERED: Cathflo Activase Inj 2 MG Vial I-CATHETER SCH (16:00)
[2018-07-31 06:33] LABS: Calcium 8.3 mg/dL (8.5-10.1); Carbon Dioxide 21.6 meq/L (21.0-32.0)
[2018-07-31] MEDS: Famotidine 20 MG Tablet PO SCH ×2 (08:54→22:48)
[2018-07-31] MEDS: Furosemide 40 MG Tablet PO SCH (08:54)
[2018-07-31] MEDS: ceFAZolin 2 GM Premix Inj 2 GM/100 ML BAG IV.SIG SCH (08:54)
[2018-07-31] MEDS: FLUoxetine 10 MG Capsule PO SCH (08:54)
[2018-07-31] MEDS: Senna/Docusate Sodium 8.6/50 MG Tablet PO SCH ×2 (09:01→22:47)
[2018-07-31] MEDS: Polyethylene Glycol 3350 17 GM Packet PO SCH ×2 (09:01→22:47)
--- NOTE | 2018-07-31 11:01 | P.PNNP ---
Subjective Interval history: Patient is sleeping. Hemodialysis yesterday however dialysis could not be done secondary to reduced flow. Creatinine at 6.95 and potassium level at 5.0. <Debbie Godinez - Last Filed: 07/31/18 10:55> Physical Exam Vital signs: Vital Signs 07/30/18 12:00 07/30/18 16:07 07/30/18 17:25 Temperature 97.8 F 97 F L Pulse Rate 109 H 108 H 106 H Respiratory Rate 17 16 18 Blood Pressure 117/84 128/93 H Pulse Oximetry 92 L 96 07/30/18 20:00 07/30/18 22:28 07/30/18 23:56 Temperature 98.5 F 98.4 F Pulse Rate 115 H 115 H 120 H Respiratory Rate 16 18 18 Blood Pressure 141/99 H 122/85 Pulse Oximetry 96 95 07/31/18 08:00 Temperature 98.7 F Pulse Rate 121 H Respiratory Rate 20 Blood Pressure 127/95 H Pulse Oximetry 98 Intake & Output 07/30/18 07/31/18 07/31/18 18:59 06:59 18:59 Intake Total 100 / 100 461 / 461 100 / 100 Balance 100 / 100 461 / 461 100 / 100 Weight 59.3 kg Intake: IV 100 / 100 100 / 100 Ancef 2 GM Premix Inj 2 gm In 100 / 100 100 / 100 100 ml @ 200 mls/hr IV.SIG DAILY SERGE Rx#:[id number] Oral 461 / 461 Other: # Voids 450 Date of Last Bowel Movement 07/29/18 07/31/18 Narrative: GENERAL: Appears comfortable, sitting up in bed. NAD SKIN: Warm and dry. Right IJ permacath HEAD: Normocephalic. EYES: No scleral icterus. No injection or drainage. NECK: Supple, trachea midline. No JVD. CARDIOVASCULAR: Regular rate and rhythm. Murmur RESPIRATORY: Breath sounds equal bilaterally. No accessory muscle use. GASTROINTESTINAL: Abdomen distended. MUSCULOSKELETAL: No cyanosis, or edema. BACK: Nontender without obvious deformity. No CVA tenderness. <Debbie Godinez - Last Filed: 07/31/18 10:55> Vital signs: Vital Signs 08/02/18 00:00 08/02/18 08:00 08/02/18 12:00 Temperature 98.2 F 98.3 F 98.2 F Pulse Rate 109 H 109 H 104 H Respiratory Rate 18 17 17 Blood Pressure 118/88 115/83 106/66 Pulse Oximetry 95 93 L 95 08/02/18 16:00 Temperature 97.2 F L Pulse Rate 118 H Respiratory Rate 17 Blood Pressure 138/93 H Pulse Oximetry 99 Intake & Output 08/01/18 08/02/18 08/02/18 18:59 06:59 18:59 Intake Total 100 / 100 600 / 600 Output Total 3000 / 3000 400 / 400 Balance -2900 / -2900 200 / 200 Weight 60.9 kg Intake: IV 100 / 100 Ancef 2 GM Premix Inj 2 gm In 100 / 100 100 ml @ 200 mls/hr IV.SIG DAILY SERGE Rx#:[id number] Oral 600 / 600 Output: Urine 400 / 400 Hemodialysis Amount 3000 / 3000 Other: # Voids 3 Date of Last Bowel Movement 07/31/18 <Bhargav Monge - Last Filed: 08/02/18 18:00> Assessment and Plan - Assessment (1) Acute kidney injury Code(s): N17.9 - Acute kidney failure, unspecified Status: Acute Plan: Acute kidney injury requiring hemodialysis Patient has sepsis with hx of IVDA, developed TED Has right IJ perma cath placed on Hemodialysis on Wednesday/, Wednesday Plan Avoid nephrotoxins including IV contrast and gadolinium. Epogen with dialysis Continue renal diet, Continue Lasix daily, Maintain strict I+0's Patient continues to need hemodialysis with elevated creatinine and low urinary output. home health manager consulted for arrangement for outpatient hemodialysis, orders signed for transitional Hemodialysis yesterday was unable to complete secondary to poor flow with PermCath Will consult interventional for repositioning of Perma cath and hemodialysis planned for tomorrow. (2) Endocarditis Code(s): I38 - Endocarditis, valve unspecified Status: Acute Plan: On antibiotics Renal dose as appropriate (3) Hyperkalemia Code(s): E87.5 - Hyperkalemia Status: Acute Plan: Labs ordered for AM <Debbie Godienz - Last Filed: 07/31/18 10:55> - Assessment (1) Acute kidney injury Code(s): N17.9 - Acute kidney failure, unspecified Status: Acute Plan: Patient seen and examined, agree with above. For PermCath repositioning. HD will be in AM. (2) Endocarditis Code(s): I38 - Endocarditis, valve unspecified Status: Acute (3) Hyperkalemia Code(s): E87.5 - Hyperkalemia Status: Acute <Bhargav Monge - Last Filed: 08/02/18 18:00>
[2018-07-31] MEDS: Heparin - SQ 10,000 UNITS/ML Vial SQ SCH ×2 (13:46→22:49)
--- NOTE | 2018-07-31 15:33 | P.PN ---
Subjective Interval history: This is a pleasant 28 y/o female with Infective tricuspid valve endocarditis, and multiorgan dysfunction secondary to endocarditis, has severe renal failure requiring renal replacement therapy, ID specialist following, she has also history of signing AMA. 07/26: Seen with nurse, no nausea, vomit or diarrhea, as per ID specialist okay to discharge and continue antibiotics while on HD if cleared by Nephrology awaiting for clearance. 07/27: Stable in her bedroom seen in the presence of Nurse Miss Roberto and student nurse, no nausea, vomit or diarrhea awaiting for clearance by Nephrology for discharge. 07/28: Seen early in am with lodging facilities manager and Nurse Miss Murphy, the patient with her mother by her side, using bad language to the medical team, states we were make her starving and dehydrated, she was explained was asked for Perm cath to continue her Hemodialysis and also as per Programming Specialist she is trying to get her approved for hemodialysis that will be done in this facility until insurance approves. all questions answered. 07/29: Seen in her bedroom in the presence of nurse Miss Silveira, no complaint, status post perm cath placement but did not worked for Dialysis today, was recommended for ICE on Perm cath place and will have Hemodialysis tomorrow, Hepatitis C Rebekah in [facility] 07/14, Very poor medical compliance, recommended by ID specialist to Continue IV Ancef for MSSA, plan is to continue Antibiotics until August 14, to continue antibiotics Ancef 2 grams IV with each Hemodialysis, stable from ID specialist standpoint, call ID when patient ready for discharge. 07/30: Stable seen in the presence of nurse at all times while I was talking with patient, no new issues, her perm cath did not worked for dialysis will be re evaluated by Interventional radiology on . 07/31: Seen in her bedroom in the presence of nurse Miss Bal, no nausea, vomit or diarrhea for tomorrow will have re evaluation of her perm cath by Interventional Radiology. Physical Exam Vital signs: Vital Signs 07/30/18 16:07 07/30/18 17:25 07/30/18 20:00 Temperature 97 F L 98.5 F Pulse Rate 108 H 106 H 115 H Respiratory Rate 16 18 16 Blood Pressure 128/93 H 141/99 H Pulse Oximetry 96 96 07/30/18 22:28 07/30/18 23:56 07/31/18 08:00 Temperature 98.4 F 98.7 F Pulse Rate 115 H 120 H 121 H Respiratory Rate 18 18 20 Blood Pressure 122/85 127/95 H Pulse Oximetry 95 98 07/31/18 12:00 07/31/18 12:02 Temperature 98.0 F Pulse Rate 113 H 120 H Respiratory Rate 20 20 Blood Pressure 145/109 H Pulse Oximetry 95 Intake & Output 07/30/18 07/31/18 07/31/18 18:59 06:59 18:59 Intake Total 100 / 100 461 / 461 100 / 100 Balance 100 / 100 461 / 461 100 / 100 Weight 59.3 kg Intake: IV 100 / 100 100 / 100 Ancef 2 GM Premix Inj 2 gm In 100 / 100 100 / 100 100 ml @ 200 mls/hr IV.SIG DAILY SERGE Rx#:[id number] Oral 461 / 461 Other: # Voids 450 Date of Last Bowel Movement 07/29/18 07/31/18 Narrative: GENERAL: Appears comfortable, sitting up in bed. NAD SKIN: Warm and dry. Right upper chest Perm cath. HEAD: Normocephalic. EYES: No scleral icterus. No injection or drainage. NECK: Supple, trachea midline. No JVD. CARDIOVASCULAR: Regular rate and rhythm. Murmur RESPIRATORY: Breath sounds equal bilaterally. No accessory muscle use. GASTROINTESTINAL: Abdomen distended. MUSCULOSKELETAL: No cyanosis, or edema. BACK: Nontender without obvious deformity. No CVA tenderness. Results - Labs CBC & Chem 7: 07/29/18 05:48 07/31/18 05:06 Laboratory Results - last 24 hr 07/31/18 05:06 Sodium 134 L Potassium 5.0 Chloride 95 L Carbon Dioxide 21.6 Anion Gap 17 H BUN 72 H Creatinine 6.95 H Estimated GFR 7 L Random Glucose 89 Calcium 8.3 L - Procedures 07/14 paracentesis Perm cath Assessment and Plan - Plan 28-year-old female with infective tricuspid valve endocarditis and multiorgan dysfunction secondary to endocarditis. remains in heart failure and volume overload, and associated organ failure, including severe renal failure requiring renal replacement therapy. continue to daily pull fluid by HD. Broad spectrum abx. can leave ICU. overall prognosis is quite poor given history of leaving AMA: she will likely not survive if she continues to leave AMA. Acute hypoxemia- resolved Septic pulmonary emboli due to history of IV drug abuse Wean oxygen by nasal cannula for goal SPO2 greater than 90%, currently she is 95 % on room air. Fluid removal with dialysis. Infective tricuspid valve endocarditis Moderate tricuspid valve regurgitation Mixed septic and cardiogenic shock secondary to infective endocarditis- resolving. Sinus tachycardia Bedside echo shows large tricuspid regurgitation with moderate to severe TR With noncompliance and multiple AMA discharges, Not a candidate for valve replacement until she can complete antibiotic therapy and demonstrate medical compliance by not leaving AMA. Nephrology consulted for hemodialysis 07/29: Seen in her bedroom in the presence of nurse Miss Silveira, no complaint, status post perm cath placement but did not worked for Dialysis today, was recommended for ICE on Perm cath place and will have Hemodialysis tomorrow, Hepatitis C Rebekah in [facility] 07/14, Very poor medical compliance, recommended by ID specialist to Continue IV Ancef for MSSA, plan is to continue Antibiotics until August 14, to continue antibiotics Ancef 2 grams IV with each Hemodialysis, stable from ID specialist standpoint, call ID when patient ready for discharge. IV drug dependence watch for signs of withdrawal prn oxycodone to prevent withdraws f/u confirmatory UDS. unclear if benzos and opiates are iatrogenic from OSH or illicit. avoid long-acting sedatives Last use of IVDU per patient was before last admission here 3-4 months ago, but I don't think patient is a reliable historian and will follow up no signs of withdrawal. Severe acute kidney injury requiring renal replacement therapy. Patient came with outside hospital dialysis access in place. Given risk-benefit, will continue OSH dialysis access. continue not working the Perm cath will be reevaluated on Wednesday08/01/18 by interventional radiology. Acute anion gap metabolic acidosis- resolved Acute lactic acidosis- resolved Hyperkalemia- resolved Severe acute protein calorie malnutrition Acute liver injury- resolving. Acute Hypervolemic Hyponatremia- persistent. advance diet. 1500mL fluid restriction. continue to pull volume with HD liver injury secondary to shock. Hyponatremia is secondary to volume overload from cardiogenic shock. Ascitesultrasound abdomen to review if there is no fluid for paracentesis for therapeutic treatment. = Status post repeat paracentesis on 07/17. 2.1 L. //Suspected CHF exacerbation //tricuspid regurgitation. Seen on outside echo BNP above 5000, obviously affected by renal failure. Ascites is likely secondary CHF we will discuss with nephrology. Hopefully can increase fluid removed in dialysis. = Continue dialysis, fluid restrictions. GI Prophylaxis pepcid DVT Prophylaxis -- SCDs Heparin subcutaneous. No changes to anterior assessment. Code Status: Full code. Discussed Condition With: patient and nurse Miss Bal. Discharge Planning: lodging facilities manager working on the case for hemodialysis management and antibiotics as outpatient.
[2018-08-01] MEDS: Heparin - SQ 10,000 UNITS/ML Vial SQ SCH ×3 (05:42→23:22)
[2018-08-01 07:23] LABS: Baso # (Auto) 0.1 th/mm3 (0.0-0.2); Baso % (Auto) 1.2 % (0.0-2.0); Eos # (Auto) 0.1 th/mm3 (0.0-0.4); Eos % (Auto) 0.6 % (0.0-4.0); Hematocrit 35.9 % (35.0-46.0); Hemoglobin 11.4 gm/dL (11.6-15.3); Lymph # (Auto) 2.6 th/mm3 (1.0-4.8); Lymph % (Auto) 24.5 % (9.0-44.0); Mean Corpuscular HGB Conc 31.9 % (32.0-36.0); Mean Corpuscular Hemoglobin 30.4 pg (27.0-34.0); Mean Corpuscular Volume 95.4 fL (80.0-100.0); Mean Platelet Volume 8.3 fL (7.0-11.0); Mono # (Auto) 1.1 th/mm3 (0.0-0.9); Mono % (Auto) 10.7 % (0.0-8.0); Neut # (Auto) 6.7 th/mm3 (1.8-7.7); Platelet Count 246 th/mm3 (150-450); Red Blood Count 3.76 mil/mm3 (4.00-5.30); Red Cell Distribution Width 24.5 % (11.6-17.2); White Blood Count 10.7 th/mm3 (4.0-11.0)
[2018-08-01 07:48] LABS: Albumin 2.1 g/dL (3.4-5.0); Calcium 8.9 mg/dL (8.5-10.1); Carbon Dioxide 19.5 meq/L (21.0-32.0); Potassium 5.3 meq/L (3.5-5.1)
[2018-08-01 07:49] LABS: Phosphorus 6.9 mg/dL (2.5-4.9)
[2018-08-01] MEDS ORDERED: *Heparin 10,000 UNITS/10 ML Vial Periprocedural ONLY ONE (09:37)
[2018-08-01] MEDS ORDERED: Lidocaine 1%/Epinephrine 1:100,000 Inj 20 ML Vial ONE (09:37)
[2018-08-01] MEDS ORDERED: fentaNYL Citrate Inj 250 MCG/5 ML Ampul ONE (09:39)
--- NOTE | 2018-08-01 10:53 | P.RAD ---
Post Procedure Progress Note - Pre Procedure Diagnosis (1) End-stage renal disease (ESRD) - Post Procedure Diagnosis (1) End-stage renal disease (ESRD) - Procedure Information Supervising Radiologist: José Manuel Nicholson MD - Plan of Activity Patient to Unit: Nursing Unit Patient Condition: Good See PACS Report for procedural detail/treatment. [facility] Radiology Procedures right Internal Jugular Hemodialysis Catheter Tunneled Device: dual lumen
[2018-08-01] MEDS ORDERED: Iohexol 350 MG/ML 50 ML Vial (for Rad Diag) IVCONTRAST ONE (11:09)
[2018-08-01] MEDS: ceFAZolin 2 GM Premix Inj 2 GM/100 ML BAG IV.SIG SCH (12:26)
[2018-08-01] MEDS: Famotidine 20 MG Tablet PO SCH ×3 (12:27→23:20)
[2018-08-01] MEDS: FLUoxetine 10 MG Capsule PO SCH ×2 (12:27→12:38)
[2018-08-01] MEDS: Furosemide 40 MG Tablet PO SCH ×2 (12:27→12:38)
[2018-08-01] MEDS: Polyethylene Glycol 3350 17 GM Packet PO SCH ×2 (12:27→23:20)
[2018-08-01] MEDS: Senna/Docusate Sodium 8.6/50 MG Tablet PO SCH ×2 (12:28→23:22)
--- NOTE | 2018-08-01 13:02 | IR ---
EXAM DATE: 08/01/2018 12:00 AM EDT AGE/SEX: 28 years / Female INDICATIONS: Patient with history of Endocarditis and Renal Disease in need of Permanent Tunneled Ce ntral Venous Catheter placement for dialysis. CLINICAL DATA: This is the patient's subsequent encounter. Patient reports that signs and symptoms h ave been present for 4 - 6 days and indicates a pain score of 2/10. MEDICAL/SURGICAL HISTORY: Asthma. Cholecystitis, Endocarditis . Hemodialysis. COMPARISON: No prior exams available for comparison. FLUORO TIME (min): 4.7 IMAGE SERIES: 5 ACCESS SITE: SEDATION TIME (min): 45 MEDICATION(S): 3.5 mg midazolam (Versed) IV 200 mcg fentanyl (Sublimaze) IV DEVICE(S): 15 Fr 19 Cm Dual Lumen Cid II Plus Catheter. . . PROCEDURE: 1. Ultrasound-guided venipuncture. 2. PermaCath placement. 3. Conscious sedation with continuous EKG and oximetry monitoring. The risks, benefits and alternatives to the procedure were explained and verbal and written consent w as obtained. The site was prepped in sterile fashion. Full sterile technique was used, including ca p, mask, sterile gloves and gown and a large sterile sheet. Hand hygiene and 2% chlorhexidine and/or betadine/alcohol prep was utilized per protocol for cutaneous antisepsis. Sterile gel and sterile p robe cover were utilized for ultrasound guidance. The skin and subcutaneous tissues were infiltrated with local anesthetic solution. With ultrasound and fluoroscopic guidance a dermatotomy was created over the prescribed vein. A micr opuncture set was used to access the targeted vein and serial dilatation was performed to accept the prescribed length catheter. A subcutaneous tunnel was created in a retrograde fashion the catheter w as pulled through the tunnel. The catheter was flushed and assembled and locked with heparin. The c atheter was sutured in place. Conscious sedation was performed with the prescribed dosages and duration as above in the presence of an independent trained radiology nurse to assist in the monitoring of the patient. EKG and oximetry remained stable throughout the procedure. The patient tolerated the procedure well and there were n o complications. The patient was sent to post anesthesia recovery in stable condition. CONCLUSION: 1. Uncomplicated PermaCath placement as above. Electronically signed by: José Manuel Nicholson MD 08/01/2018 1:01 PM EDT
--- NOTE | 2018-08-01 13:04 | P.PNNP ---
Subjective Interval history: Sleeping, just returned from interventional radiology for perma cath, hemodialysis planned for today. <Debbie Godinez - Last Filed: 08/01/18 12:51> Physical Exam Vital signs: Vital Signs 07/31/18 16:45 07/31/18 19:34 07/31/18 20:00 Temperature 98.5 F 98.3 F Pulse Rate 115 H 115 H 112 H Respiratory Rate 20 20 20 Blood Pressure 128/95 H 133/94 H Pulse Oximetry 96 99 08/01/18 00:00 08/01/18 11:00 08/01/18 11:15 Temperature 98 F 97.9 F Pulse Rate 116 H 100 H 98 H Respiratory Rate 18 16 16 Blood Pressure 132/97 H 128/99 H 118/96 H Pulse Oximetry 97 94 L 93 L 08/01/18 11:30 Temperature Pulse Rate 97 H Respiratory Rate 16 Blood Pressure 124/94 H Pulse Oximetry 95 Intake & Output 07/31/18 08/01/18 08/01/18 18:59 06:59 18:59 Intake Total 700 / 700 120 / 120 Output Total 100 / 100 Balance 700 / 700 20 / 20 Weight 59.3 kg Intake: IV 100 / 100 Ancef 2 GM Premix Inj 2 gm In 100 / 100 100 ml @ 200 mls/hr IV.SIG DAILY SERGE Rx#:[id number] Oral 600 / 600 120 / 120 Output: Urine 100 / 100 Other: # Voids 4 Date of Last Bowel Movement 07/31/18 # Bowel Movements 2 Narrative: GENERAL: Appears comfortable, sitting up in bed. NAD SKIN: Warm and dry. Right upper chest Perm cath. HEAD: Normocephalic. EYES: No scleral icterus. No injection or drainage. NECK: Supple, trachea midline. No JVD. CARDIOVASCULAR: Regular rate and rhythm. Murmur RESPIRATORY: Breath sounds equal bilaterally. No accessory muscle use. GASTROINTESTINAL: Abdomen distended. MUSCULOSKELETAL: No cyanosis, or edema. BACK: Nontender without obvious deformity. No CVA tenderness. <Debbie Godinez - Last Filed: 08/01/18 12:51> Vital signs: Vital Signs 08/03/18 13:06 08/03/18 15:57 08/03/18 19:53 Temperature 97.9 F 98.7 F 98.7 F Pulse Rate 112 H 114 H 111 H Respiratory Rate 18 18 18 Blood Pressure 126/94 H 133/100 H 124/82 Pulse Oximetry 95 95 08/03/18 22:33 08/04/18 00:00 08/04/18 03:46 Temperature 97.9 F Pulse Rate 118 H 82 Respiratory Rate 24 18 18 Blood Pressure 157/69 H Pulse Oximetry 96 08/04/18 08:00 Temperature 97.4 F L Pulse Rate 124 H Respiratory Rate 18 Blood Pressure 127/89 Pulse Oximetry 95 Intake & Output 08/03/18 08/04/18 08/04/18 18:59 06:59 18:59 Intake Total 750 / 750 480 / 480 50 / 50 Output Total 3200 / 3200 Balance -2450 / -2450 480 / 480 50 / 50 Intake: IV 50 / 50 50 / 50 Ancef 2 GM Premix Inj 2 gm In 50 / 50 50 / 50 50 ml @ 100 mls/hr IV.SIG DAILY SERGE Rx#:[id number] Oral 700 / 700 480 / 480 Output: Urine 200 / 200 Hemodialysis Amount 3000 / 3000 Other: # Voids 2 Date of Last Bowel Movement 08/01/18 08/04/18 <Bhargav Monge - Last Filed: 08/04/18 10:34> Assessment and Plan - Assessment (1) Acute kidney injury Code(s): N17.9 - Acute kidney failure, unspecified Status: Acute Plan: Acute kidney injury requiring hemodialysis per patient started hemodialysis at the end of May Patient has sepsis with hx of IVDA, developed TED Creatinine was noted to 0.81 on May 04, 2018 Hemodialysis on Wednesday// Wednesday Plan Avoid nephrotoxins including IV contrast and gadolinium. Epogen with dialysis Continue renal diet, Continue Lasix daily, Maintain strict I+0's PO4 elevated, phoslo added with meals Hyperkalemia, will adjust K bath with dialysis Patient continues to need hemodialysis with elevated creatinine and low urinary output. Perma cath replaced, hemodialysis planned for today will remove fluid as tolerated (2) Endocarditis Code(s): I38 - Endocarditis, valve unspecified Status: Acute Plan: On antibiotics Renal dose as appropriate (3) Hyperkalemia Code(s): E87.5 - Hyperkalemia Status: Acute Plan: Will adjust K bath with hemodialysis <Debbie Godinez - Last Filed: 08/01/18 12:51> - Assessment (1) Acute kidney injury Code(s): N17.9 - Acute kidney failure, unspecified Status: Acute Plan: Patient seen and examined, agree with above. Creatinine remain elevated. DarlinCatcindi replaced, for HD today. Will change her days to MWF. (2) Endocarditis Code(s): I38 - Endocarditis, valve unspecified Status: Acute (3) Hyperkalemia Code(s): E87.5 - Hyperkalemia Status: Acute <Keke Monge Q - Last Filed: 08/04/18 10:34>
--- NOTE | 2018-08-01 15:01 | P.PNIM ---
Subjective Interval history: Patient appears comfortable. She does not have any current complaints. Physical Exam Vital signs: Vital Signs 07/31/18 16:45 07/31/18 19:34 07/31/18 20:00 Temperature 98.5 F 98.3 F Pulse Rate 115 H 115 H 112 H Respiratory Rate 20 20 20 Blood Pressure 128/95 H 133/94 H Pulse Oximetry 96 99 08/01/18 00:00 08/01/18 08:00 08/01/18 11:00 Temperature 98 F 98.0 F 97.9 F Pulse Rate 116 H 111 H 100 H Respiratory Rate 18 17 16 Blood Pressure 132/97 H 127/96 H 128/99 H Pulse Oximetry 97 95 94 L 08/01/18 11:15 08/01/18 11:30 Temperature Pulse Rate 98 H 97 H Respiratory Rate 16 16 Blood Pressure 118/96 H 124/94 H Pulse Oximetry 93 L 95 Intake & Output 07/31/18 08/01/18 08/01/18 18:59 06:59 18:59 Intake Total 700 / 700 120 / 120 Output Total 100 / 100 Balance 700 / 700 20 / 20 Weight 59.3 kg Intake: IV 100 / 100 Ancef 2 GM Premix Inj 2 gm In 100 / 100 100 ml @ 200 mls/hr IV.SIG DAILY SERGE Rx#:[id number] Oral 600 / 600 120 / 120 Output: Urine 100 / 100 Other: # Voids 4 Date of Last Bowel Movement 07/31/18 # Bowel Movements 2 Narrative: General patient in no acute distress HEENT extraocular movements are intact, clear oropharyngeal mucosa, no JVD Cardiovascular S1-S2 audible, right permacath in place Respiratory clear to auscultation bilaterally Abdomen soft, nontender, nondistended, normal bowel sounds Extremities no edema 2+ distal pulses in bilateral upper and lower extremities Neuro no neurological deficits Results - Labs CBC & Chem 7: 08/01/18 06:17 08/01/18 06:17 Laboratory Results - last 24 hr 08/01/18 08/01/18 06:17 06:17 WBC 10.7 RBC 3.76 L Hgb 11.4 L Hct 35.9 MCV 95.4 MCH 30.4 MCHC 31.9 L RDW 24.5 H Plt Count 246 D MPV 8.3 Neut % (Auto) 63.0 Lymph % (Auto) 24.5 [place] % (Auto) 10.7 H Eos % (Auto) 0.6 Baso % (Auto) 1.2 Neut # (Auto) 6.7 Lymph # (Auto) 2.6 [place] # (Auto) 1.1 H Eos # (Auto) 0.1 Baso # (Auto) 0.1 WBC Differential . Differential Comment Auto diff final Sodium 131 L Potassium 5.3 H Chloride 93 L Carbon Dioxide 19.5 L Anion Gap 19 H BUN 81 H Creatinine 7.42 H Estimated GFR 6 L Random Glucose 90 Calcium 8.9 Phosphorus 6.9 H Albumin 2.1 L - Imaging Impressions Central Venous Line 08/01/18 00:00 CONCLUSION: 1. Uncomplicated PermaCath placement as above. - Procedures 07/14 paracentesis Perm cath Assessment and Plan - Plan Patient is a 28-year-old female with a history of IV drug use. She was admitted previously in May for MSSA septicemia however left AGAINST MEDICAL ADVICE during that admission. As per Dr. mitchell the patient was also seen at [facility] after that incidence and also left AGAINST MEDICAL ADVICE. The patient is now admitted and being treated for suspected MSSA septicemia with suspicion for endocarditis. 1. MSSA septicemia with suspicion for endocarditis 2. Acute kidney injury now on hemodialysis. 3. Hyperkalemia Currently on antibiotics with IV Ancef. She will need IV antibiotics after hemodialysis with each hemodialysis session. The treatment will continue until end date August 14, 2018 as per infectious disease recommendations. Permacath replaced today. Patient was scheduled to receive hemodialysis today. Labs showing hyperkalemia however patient is currently on hemodialysis. Nephrology following. Patient is very noncompliant. Possible discharge for tomorrow as long as the permacath is functioning correctly and the patient has appropriate hemodialysis scheduled after discharge.
[2018-08-01] MEDS: Heparin 10,000 UNITS/10 ML Vial (for IV use) OTHER PRN (17:58)
[2018-08-01] MEDS: Calcium Acetate 667 MG Capsule PO SCH ×2 (18:39)
[2018-08-02] MEDS: Heparin - SQ 10,000 UNITS/ML Vial SQ SCH ×3 (05:14→22:42)
[2018-08-02] MEDS: ceFAZolin 2 GM Premix Inj 2 GM/100 ML BAG IV.SIG SCH (09:19)
[2018-08-02] MEDS: Calcium Acetate 667 MG Capsule PO SCH ×3 (09:20→17:12)
[2018-08-02] MEDS: Famotidine 20 MG Tablet PO SCH ×2 (09:20→20:07)
[2018-08-02] MEDS: FLUoxetine 10 MG Capsule PO SCH (09:21)
[2018-08-02] MEDS: Furosemide 40 MG Tablet PO SCH (09:21)
[2018-08-02] MEDS: Senna/Docusate Sodium 8.6/50 MG Tablet PO SCH ×2 (09:23→20:07)
[2018-08-02] MEDS: Polyethylene Glycol 3350 17 GM Packet PO SCH ×2 (09:23→20:07)
--- NOTE | 2018-08-02 09:58 | P.PNNP ---
Subjective Interval history: Reports discomfort at perma cath site. No acute events overnight. <Debbie Godinez - Last Filed: 08/02/18 16:29> Physical Exam Vital signs: Vital Signs 08/01/18 11:00 08/01/18 11:15 08/01/18 11:30 Temperature 97.9 F Pulse Rate 100 H 98 H 97 H Respiratory Rate 16 16 16 Blood Pressure 128/99 H 118/96 H 124/94 H Pulse Oximetry 94 L 93 L 95 08/02/18 00:00 08/02/18 08:00 Temperature 98.2 F 98.3 F Pulse Rate 109 H 109 H Respiratory Rate 18 17 Blood Pressure 118/88 115/83 Pulse Oximetry 95 93 L Intake & Output 08/01/18 08/02/18 08/02/18 18:59 06:59 18:59 Intake Total 100 / 100 600 / 600 Output Total 3000 / 3000 400 / 400 Balance -2900 / -2900 200 / 200 Weight 60.9 kg Intake: IV 100 / 100 Ancef 2 GM Premix Inj 2 gm In 100 / 100 100 ml @ 200 mls/hr IV.SIG DAILY SERGE Rx#:[id number] Oral 600 / 600 Output: Urine 400 / 400 Hemodialysis Amount 3000 / 3000 Other: # Voids 3 Date of Last Bowel Movement 07/31/18 Narrative: GENERAL: Alert and oriented. NAD SKIN: Warm and dry. Right upper chest Perm cath. HEAD: Normocephalic. EYES: No scleral icterus. No injection or drainage. NECK: Supple, trachea midline. No JVD. CARDIOVASCULAR: Regular rate and rhythm. Murmur RESPIRATORY: Breath sounds equal bilaterally. No accessory muscle use. GASTROINTESTINAL: Abdomen distended. MUSCULOSKELETAL: No cyanosis, or edema. BACK: Nontender without obvious deformity. No CVA tenderness. <Debbie Godinez - Last Filed: 08/02/18 16:29> Vital signs: Vital Signs 08/03/18 13:06 08/03/18 15:57 08/03/18 19:53 Temperature 97.9 F 98.7 F 98.7 F Pulse Rate 112 H 114 H 111 H Respiratory Rate 18 18 18 Blood Pressure 126/94 H 133/100 H 124/82 Pulse Oximetry 95 95 08/03/18 22:33 08/04/18 00:00 08/04/18 03:46 Temperature 97.9 F Pulse Rate 118 H 82 Respiratory Rate 24 18 18 Blood Pressure 157/69 H Pulse Oximetry 96 08/04/18 08:00 Temperature 97.4 F L Pulse Rate 124 H Respiratory Rate 18 Blood Pressure 127/89 Pulse Oximetry 95 Intake & Output 08/03/18 08/04/18 08/04/18 18:59 06:59 18:59 Intake Total 750 / 750 480 / 480 50 / 50 Output Total 3200 / 3200 Balance -2450 / -2450 480 / 480 50 / 50 Intake: IV 50 / 50 50 / 50 Ancef 2 GM Premix Inj 2 gm In 50 / 50 50 / 50 50 ml @ 100 mls/hr IV.SIG DAILY SERGE Rx#:[id number] Oral 700 / 700 480 / 480 Output: Urine 200 / 200 Hemodialysis Amount 3000 / 3000 Other: # Voids 2 Date of Last Bowel Movement 08/01/18 08/04/18 <Bhargav Monge - Last Filed: 08/04/18 10:41> Assessment and Plan - Assessment (1) Acute kidney injury Code(s): N17.9 - Acute kidney failure, unspecified Status: Acute Plan: Acute kidney injury requiring hemodialysis per patient started hemodialysis at the end of May Patient has sepsis with hx of IVDA, developed TED Creatinine was noted to 0.81 on May 04, 2018 Hemodialysis now changed to Wednesday, Wednesday, and Wednesday Plan Avoid nephrotoxins including IV contrast and gadolinium. Epogen with dialysis Continue renal diet, Continue Lasix daily, Maintain strict I+0's Continue phoslo Hemodialysis yesterday with removal of 3 liters of fluid Patient continues to need hemodialysis with elevated creatinine and low urinary output. Hemodialysis planned for tomorrow. (2) Endocarditis Code(s): I38 - Endocarditis, valve unspecified Status: Acute Plan: On antibiotics Renal dose as appropriate (3) Hyperkalemia Code(s): E87.5 - Hyperkalemia Status: Acute Plan: K bath adjusted with hemodialysis Labs in AM <Debbie Godinez - Last Filed: 08/02/18 16:29> - Assessment (1) Acute kidney injury Code(s): N17.9 - Acute kidney failure, unspecified Status: Acute Plan: Patient seen and examined, agree with above. HD done yesterday, Creatinine is still elevated. To arrange out patient HD. Patient has been oin HD since end of May, not ESRD yet. (2) Endocarditis Code(s): I38 - Endocarditis, valve unspecified Status: Acute (3) Hyperkalemia Code(s): E87.5 - Hyperkalemia Status: Acute <Bhargav Monge - Last Filed: 08/04/18 10:41>
--- NOTE | 2018-08-02 12:30 | P.PNIM ---
Subjective Interval history: Patient is requesting not to be bothered today. She does not want to have a discussion with me. Physical Exam Vital signs: Vital Signs 08/02/18 00:00 08/02/18 08:00 08/02/18 12:00 Temperature 98.2 F 98.3 F 98.2 F Pulse Rate 109 H 109 H 104 H Respiratory Rate 18 17 17 Blood Pressure 118/88 115/83 106/66 Pulse Oximetry 95 93 L 95 Intake & Output 08/01/18 08/02/18 08/02/18 18:59 06:59 18:59 Intake Total 100 / 100 600 / 600 Output Total 3000 / 3000 400 / 400 Balance -2900 / -2900 200 / 200 Weight 60.9 kg Intake: IV 100 / 100 Ancef 2 GM Premix Inj 2 gm In 100 / 100 100 ml @ 200 mls/hr IV.SIG DAILY SERGE Rx#:[id number] Oral 600 / 600 Output: Urine 400 / 400 Hemodialysis Amount 3000 / 3000 Other: # Voids 3 Date of Last Bowel Movement 07/31/18 Narrative: General patient in no acute distress HEENT extraocular movements are intact, clear oropharyngeal mucosa, no JVD Cardiovascular S1-S2 audible, right permacath in place Respiratory clear to auscultation bilaterally Abdomen soft, nontender, nondistended, normal bowel sounds Extremities no edema 2+ distal pulses in bilateral upper and lower extremities Neuro no neurological deficits Results - Labs CBC & Chem 7: 08/01/18 06:17 08/01/18 06:17 - Imaging Impressions Central Venous Line 08/01/18 00:00 CONCLUSION: 1. Uncomplicated PermaCath placement as above. - Procedures 07/14 paracentesis Perm cath Assessment and Plan - Plan Patient is a 28-year-old female with a history of IV drug use. She was admitted previously in May for MSSA septicemia however left AGAINST MEDICAL ADVICE during that admission. As per Dr. mitchell the patient was also seen at [facility] after that incidence and also left AGAINST MEDICAL ADVICE. The patient is now admitted and being treated for suspected MSSA septicemia with suspicion for endocarditis. 1. MSSA septicemia with suspicion for endocarditis 2. Acute kidney injury now on hemodialysis. 3. Hyperkalemia Patient currently does not want to have a conversation. She is requesting that I leave her alone for today. The plan will be to continue on antibiotics with IV Ancef. She will need IV antibiotics after hemodialysis with each hemodialysis session. The treatment will continue until end date August 14, 2018 as per infectious disease recommendations. Permacath replaced yesterday. As per the nephrology note from today she will receive hemodialysis once again today. Labs showing hyperkalemia from yesterday, nephrology following. Patient is very noncompliant. The patient will be discharged once hemodialysis is scheduled. The patient and her mother are requesting that she receive hemodialysis close to the [place] where they live because it is expensive to come out towards [facility]. Patient is ambulatory.
[2018-08-03] MEDS: Heparin - SQ 10,000 UNITS/ML Vial SQ SCH ×3 (06:29→21:46)
[2018-08-03 08:07] LABS: Baso # (Auto) 0.1 th/mm3 (0.0-0.2); Baso % (Auto) 0.9 % (0.0-2.0); Eos # (Auto) 0.1 th/mm3 (0.0-0.4); Eos % (Auto) 0.8 % (0.0-4.0); Hematocrit 32.4 % (35.0-46.0); Hemoglobin 10.2 gm/dL (11.6-15.3); Lymph # (Auto) 2.1 th/mm3 (1.0-4.8); Lymph % (Auto) 22.4 % (9.0-44.0); Mean Corpuscular HGB Conc 31.4 % (32.0-36.0); Mean Corpuscular Hemoglobin 30.7 pg (27.0-34.0); Mean Corpuscular Volume 97.7 fL (80.0-100.0); Mono % (Auto) 10.8 % (0.0-8.0); Neut # (Auto) 6.1 th/mm3 (1.8-7.7); Neut % (Auto) 65.1 % (16.0-70.0); Platelet Count 180 th/mm3 (150-450); Red Blood Count 3.32 mil/mm3 (4.00-5.30); Red Cell Distribution Width 24.7 % (11.6-17.2); White Blood Count 9.4 th/mm3 (4.0-11.0)
[2018-08-03] MEDS: Furosemide 40 MG Tablet PO SCH (08:21)
[2018-08-03] MEDS: Calcium Acetate 667 MG Capsule PO SCH ×3 (08:21→17:16)
[2018-08-03] MEDS: FLUoxetine 10 MG Capsule PO SCH (08:21)
[2018-08-03] MEDS: Famotidine 20 MG Tablet PO SCH ×2 (08:21→21:44)
[2018-08-03] MEDS: Polyethylene Glycol 3350 17 GM Packet PO SCH ×2 (08:27→21:45)
[2018-08-03] MEDS: ceFAZolin 2 GM Premix Inj 2 GM/50 ML PIGGYBACK IV.SIG SCH (08:27)
[2018-08-03] MEDS: Senna/Docusate Sodium 8.6/50 MG Tablet PO SCH ×2 (08:27→21:46)
[2018-08-03 08:39] LABS: Albumin 1.9 g/dL (3.4-5.0); Calcium 8.6 mg/dL (8.5-10.1); Carbon Dioxide 24.2 meq/L (21.0-32.0); Potassium 4.8 meq/L (3.5-5.1)
--- NOTE | 2018-08-03 10:38 | P.PNNP ---
Subjective Interval history: Seen during hemodialysis. Tolerating well. <Debbie Godinez - Last Filed: 08/03/18 10:32> Physical Exam Vital signs: Vital Signs 08/02/18 12:00 08/02/18 16:00 08/02/18 20:00 Temperature 98.2 F 97.2 F L 98.9 F Pulse Rate 104 H 118 H 117 H Respiratory Rate 17 17 17 Blood Pressure 106/66 138/93 H 138/98 H Pulse Oximetry 95 99 98 08/02/18 23:21 08/03/18 01:04 08/03/18 08:00 Temperature 97.8 F 99.1 F Pulse Rate 115 H 118 H 116 H Respiratory Rate 20 20 18 Blood Pressure 135/98 H 130/99 H Pulse Oximetry 92 L 93 L Intake & Output 08/02/18 08/03/18 08/03/18 18:59 06:59 18:59 Intake Total 1050 / 1050 600 / 600 50 / 50 Balance 1050 / 1050 600 / 600 50 / 50 Weight 60.9 kg Intake: IV 50 / 50 Ancef 2 GM Premix Inj 2 gm In 50 / 50 50 ml @ 100 mls/hr IV.SIG DAILY SERGE Rx#:[id number] Oral 1050 / 1050 600 / 600 Other: # Voids 4 3 Date of Last Bowel Movement 07/31/18 08/01/18 Narrative: GENERAL: Alert and oriented. NAD SKIN: Warm and dry. Right upper chest Perm cath. HEAD: Normocephalic. EYES: No scleral icterus. No injection or drainage. NECK: Supple, trachea midline. No JVD. CARDIOVASCULAR: Regular rate and rhythm. Murmur RESPIRATORY: Breath sounds equal bilaterally. No accessory muscle use. GASTROINTESTINAL: Abdomen distended. MUSCULOSKELETAL: No cyanosis, or edema. BACK: Nontender without obvious deformity. No CVA tenderness. <Debbie Godinez - Last Filed: 08/03/18 10:32> Vital signs: Vital Signs 08/11/18 11:55 08/11/18 16:00 08/12/18 00:00 Temperature 97.7 F 97.6 F 98.5 F Pulse Rate 108 H 110 H 72 Respiratory Rate 17 19 22 Blood Pressure 113/73 122/90 129/85 Pulse Oximetry 100 100 94 L 08/12/18 00:14 08/12/18 00:15 08/12/18 08:00 Temperature 97.7 F Pulse Rate 72 99 H Respiratory Rate 25 H 18 Blood Pressure 104/79 Pulse Oximetry 94 L 92 L 08/12/18 08:58 Temperature Pulse Rate 80 Respiratory Rate 20 Blood Pressure Pulse Oximetry Intake & Output 08/11/18 08/12/18 08/12/18 18:59 06:59 18:59 Intake Total 900 / 900 480 / 480 Balance 900 / 900 480 / 480 Weight 57.4 kg Intake: IV 0 / 0 Ancef 2 GM Premix Inj 2 gm In 0 / 0 50 ml @ 100 mls/hr IV.SIG DAILY SERGE Rx#:[id number] Oral 900 / 900 480 / 480 Other: # Voids 0 2 Date of Last Bowel Movement 08/11/18 08/11/18 # Bowel Movements 1 <Bhargav Monge - Last Filed: 08/12/18 11:29> Assessment and Plan - Assessment (1) Acute kidney injury Code(s): N17.9 - Acute kidney failure, unspecified Status: Acute Plan: Acute kidney injury requiring hemodialysis per patient started hemodialysis at the end of May Patient has sepsis with hx of IVDA, developed TED Creatinine was noted to 0.81 on May 04, 2018 Hemodialysis now changed to Wednesday, Wednesday, and Wednesday Plan Avoid nephrotoxins including IV contrast and gadolinium. Epogen with dialysis Continue renal diet Continue Lasix daily, Maintain strict I+0's Continue phoslo Seen during hemodialysis will remove fluid as tolerated. Creatinine remains high and oliguric, will continue with hemodialysis 3 x week, renal recovery unlikely. (2) Endocarditis Code(s): I38 - Endocarditis, valve unspecified Status: Acute Plan: On antibiotics Renal dose as appropriate (3) Hyperkalemia Code(s): E87.5 - Hyperkalemia Status: Acute Plan: Resolved potassium level at 4.8 <Debbie Godinez - Last Filed: 08/03/18 10:32> - Assessment (1) Acute kidney injury Code(s): N17.9 - Acute kidney failure, unspecified Status: Acute Plan: Patient seen and examined, agree with above. Creatinine is still elevated. Her Creatinine was normal in May. Watch for renal recovery. HD to continue for now. (2) Endocarditis Code(s): I38 - Endocarditis, valve unspecified Status: Acute (3) Hyperkalemia Code(s): E87.5 - Hyperkalemia Status: Acute <Bhargav Monge - Last Filed: 08/12/18 11:29>
[2018-08-03] MEDS: Heparin 10,000 UNITS/10 ML Vial (for IV use) OTHER PRN (11:43)
--- NOTE | 2018-08-03 15:26 | IR ---
EXAM DATE: 08/01/2018 12:00 AM EDT AGE/SEX: 28 years / Female INDICATIONS: Patient with history of Endocarditis and Renal Disease presents with malfunctioning kris neled central venous catheter in need of patency injection for evaluation. CLINICAL DATA: This is the patient's subsequent encounter. Patient reports that signs and symptoms h ave been present for 4 - 6 days and indicates a pain score of 2/10. MEDICAL/SURGICAL HISTORY: Asthma. Endocarditis, Cholecystitis . Hemodialysis. COMPARISON: No prior exams available for comparison. FLUORO TIME (min): 4.7 IMAGE SERIES: 1 ACCESS SITE: SEDATION TIME (min): 45 CONTRAST (cc): 5 Omnipaque (iohexol) 350 MEDICATION(S): 3.5 mg midazolam (Versed) IV 200 mcg fentanyl (Sublimaze) IV DEVICE(S): . . PROCEDURE : 1. Access of PermCath 2. Port patency injection. The risks, benefits and alternatives to the procedure were explained and verbal and written consent w as obtained. The patient was placed supine. The port was prepped in sterile fashion. Full sterile t echnique was used, including cap, mask, sterile gloves and gown, and a large sterile sheet. Hand hyg iene and 2% chlorhexidine prep was utilized per protocol for cutaneous antisepsis with appropriate dr y time for site. The previously placed catheter was accessed and positive contrast was injected for evaluation. Injec tion demonstrates a patent superior vena cava. . There is kinking at the insertion at the level venot dania. CONCLUSION: 1. Intact dialysis catheter. There is a kink in the catheter and it is to be replaced. Electronically signed by: José Manuel Nicholson MD 08/03/2018 3:25 PM EDT
--- NOTE | 2018-08-03 20:14 | P.PNIM ---
Subjective Interval history: Patient does not have any complaints today. She states that she wants to go home. Physical Exam Vital signs: Vital Signs 08/02/18 23:21 08/03/18 01:04 08/03/18 08:00 Temperature 97.8 F 99.1 F Pulse Rate 115 H 118 H 116 H Respiratory Rate 20 20 18 Blood Pressure 135/98 H 130/99 H Pulse Oximetry 92 L 93 L 08/03/18 13:06 08/03/18 15:57 08/03/18 19:53 Temperature 97.9 F 98.7 F 98.7 F Pulse Rate 112 H 114 H 111 H Respiratory Rate 18 18 18 Blood Pressure 126/94 H 133/100 H 124/82 Pulse Oximetry 95 95 Intake & Output 08/03/18 08/03/18 08/04/18 06:59 18:59 06:59 Intake Total 600 / 600 750 / 750 Output Total 3200 / 3200 Balance 600 / 600 -2450 / -2450 Weight 60.9 kg Intake: IV 50 / 50 Ancef 2 GM Premix Inj 2 gm In 50 / 50 50 ml @ 100 mls/hr IV.SIG DAILY SERGE Rx#:[id number] Oral 600 / 600 700 / 700 Output: Urine 200 / 200 Hemodialysis Amount 3000 / 3000 Other: # Voids 3 2 Date of Last Bowel Movement 08/01/18 Narrative: General patient in no acute distress HEENT extraocular movements are intact, clear oropharyngeal mucosa, no JVD Cardiovascular S1-S2 audible, right permacath in place Respiratory clear to auscultation bilaterally Abdomen soft, nontender, nondistended, normal bowel sounds Extremities no edema 2+ distal pulses in bilateral upper and lower extremities Neuro no neurological deficits Results - Labs CBC & Chem 7: 08/03/18 06:53 08/03/18 06:53 Laboratory Results - last 24 hr 08/03/18 08/03/18 06:53 06:53 WBC 9.4 RBC 3.32 L Hgb 10.2 L Hct 32.4 L MCV 97.7 MCH 30.7 MCHC 31.4 L RDW 24.7 H Plt Count 180 MPV 8.0 Neut % (Auto) 65.1 Lymph % (Auto) 22.4 Hood % (Auto) 10.8 H Eos % (Auto) 0.8 Baso % (Auto) 0.9 Neut # (Auto) 6.1 Lymph # (Auto) 2.1 Hood # (Auto) 1.0 H Eos # (Auto) 0.1 Baso # (Auto) 0.1 WBC Differential . Differential Comment Auto diff final Sodium 134 L Potassium 4.8 Chloride 96 L Carbon Dioxide 24.2 Anion Gap 14 BUN 54 H Creatinine 5.76 H Estimated GFR 9 L Random Glucose 115 H Calcium 8.6 Phosphorus 4.0 Albumin 1.9 L - Imaging Impressions Venous Access Device Injection 08/01/18 00:00 CONCLUSION: 1. Intact dialysis catheter. There is a kink in the catheter and it is to be replaced. - Procedures 07/14 paracentesis Perm cath Assessment and Plan - Plan Patient is a 28-year-old female with a history of IV drug use. She was admitted previously in May for MSSA septicemia however left AGAINST MEDICAL ADVICE during that admission. As per Dr. mitchell the patient was also seen at [facility] after that incidence and also left AGAINST MEDICAL ADVICE. The patient is now admitted and being treated for suspected MSSA septicemia with suspicion for endocarditis. 1. MSSA septicemia with suspicion for endocarditis 2. Acute kidney injury now on hemodialysis. 3. Hyperkalemia Patient does not appear to be in any acute distress today. She was willing to have a conversation with me today. The plan will be to continue on antibiotics with IV Ancef. She will need IV antibiotics after hemodialysis with each hemodialysis session. The treatment will continue until end date August 14, 2018 as per infectious disease recommendations. Permacath replaced. Continue with hemodialysis as per nephrology recommendations. Patient is very noncompliant. The patient will be discharged once hemodialysis is scheduled. The patient and her mother are requesting that she receive hemodialysis close to the [place] where they live because it is expensive to come out towards [facility]. Patient is ambulatory.
[2018-08-04] MEDS: Heparin - SQ 10,000 UNITS/ML Vial SQ SCH ×3 (05:19→21:28)
[2018-08-04] MEDS: Senna/Docusate Sodium 8.6/50 MG Tablet PO SCH ×2 (08:24→21:27)
[2018-08-04] MEDS: Calcium Acetate 667 MG Capsule PO SCH ×3 (08:24→17:15)
[2018-08-04] MEDS: ceFAZolin 2 GM Premix Inj 2 GM/50 ML PIGGYBACK IV.SIG SCH (08:24)
[2018-08-04] MEDS: Furosemide 40 MG Tablet PO SCH (08:24)
[2018-08-04] MEDS: FLUoxetine 10 MG Capsule PO SCH (08:24)
[2018-08-04] MEDS: Polyethylene Glycol 3350 17 GM Packet PO SCH ×2 (08:24→21:27)
[2018-08-04] MEDS: Famotidine 20 MG Tablet PO SCH ×2 (08:24→21:27)
--- NOTE | 2018-08-04 09:27 | P.PNNP ---
Subjective Interval history: Reports nausea, cough, and abdominal distention. Hemodialysis yesterday tolerated well. <Debbie Godinez - Last Filed: 08/04/18 09:23> Physical Exam Vital signs: Vital Signs 08/03/18 13:06 08/03/18 15:57 08/03/18 19:53 Temperature 97.9 F 98.7 F 98.7 F Pulse Rate 112 H 114 H 111 H Respiratory Rate 18 18 18 Blood Pressure 126/94 H 133/100 H 124/82 Pulse Oximetry 95 95 08/03/18 22:33 08/04/18 00:00 08/04/18 03:46 Temperature 97.9 F Pulse Rate 118 H 82 Respiratory Rate 24 18 18 Blood Pressure 157/69 H Pulse Oximetry 96 08/04/18 08:00 Temperature 97.4 F L Pulse Rate 124 H Respiratory Rate 18 Blood Pressure 127/89 Pulse Oximetry 95 Intake & Output 08/03/18 08/04/18 08/04/18 18:59 06:59 18:59 Intake Total 750 / 750 480 / 480 50 / 50 Output Total 3200 / 3200 Balance -2450 / -2450 480 / 480 50 / 50 Intake: IV 50 / 50 50 / 50 Ancef 2 GM Premix Inj 2 gm In 50 / 50 50 / 50 50 ml @ 100 mls/hr IV.SIG DAILY SERGE Rx#:[id number] Oral 700 / 700 480 / 480 Output: Urine 200 / 200 Hemodialysis Amount 3000 / 3000 Other: # Voids 2 Date of Last Bowel Movement 08/01/18 Narrative: GENERAL: Alert and oriented. Anxious SKIN: Warm and dry. Right upper chest Perm cath. HEAD: Normocephalic. EYES: No scleral icterus. No injection or drainage. NECK: Supple, trachea midline. No JVD. CARDIOVASCULAR: Regular rate and rhythm. Murmur RESPIRATORY: Breath sounds equal bilaterally. No accessory muscle use. GASTROINTESTINAL: Abdomen distended. MUSCULOSKELETAL: No cyanosis, or edema. BACK: Nontender without obvious deformity. No CVA tenderness. <Debbie Godinez - Last Filed: 08/04/18 09:23> Vital signs: Vital Signs 08/11/18 11:55 08/11/18 16:00 08/12/18 00:00 Temperature 97.7 F 97.6 F 98.5 F Pulse Rate 108 H 110 H 72 Respiratory Rate 17 19 22 Blood Pressure 113/73 122/90 129/85 Pulse Oximetry 100 100 94 L 08/12/18 00:14 08/12/18 00:15 08/12/18 08:00 Temperature 97.7 F Pulse Rate 72 99 H Respiratory Rate 25 H 18 Blood Pressure 104/79 Pulse Oximetry 94 L 92 L 08/12/18 08:58 Temperature Pulse Rate 80 Respiratory Rate 20 Blood Pressure Pulse Oximetry Intake & Output 08/11/18 08/12/18 08/12/18 18:59 06:59 18:59 Intake Total 900 / 900 480 / 480 Balance 900 / 900 480 / 480 Weight 57.4 kg Intake: IV 0 / 0 Ancef 2 GM Premix Inj 2 gm In 0 / 0 50 ml @ 100 mls/hr IV.SIG DAILY SERGE Rx#:[id number] Oral 900 / 900 480 / 480 Other: # Voids 0 2 Date of Last Bowel Movement 08/11/18 08/11/18 # Bowel Movements 1 <Bhargav Monge - Last Filed: 08/12/18 11:30> Assessment and Plan - Assessment (1) Acute kidney injury Code(s): N17.9 - Acute kidney failure, unspecified Status: Acute Plan: Acute kidney injury requiring hemodialysis per patient started hemodialysis at the end of May Patient has sepsis with hx of IVDA, developed TED Creatinine was noted to 0.81 on May 04, 2018 Hemodialysis now changed to Wednesday, Wednesday, and Wednesday Plan Avoid nephrotoxins including IV contrast and gadolinium. Epogen with dialysis Continue renal diet Continue Lasix daily, Maintain strict I+0's Continue phoslo Creatinine remains high and oliguric, will continue with hemodialysis 3 x week, renal recovery unlikely. Hemodialysis yesterday with removal of 3 liters of fluid. Labs in AM (2) Endocarditis Code(s): I38 - Endocarditis, valve unspecified Status: Acute Plan: On antibiotics Renal dose as appropriate (3) Hyperkalemia Code(s): E87.5 - Hyperkalemia Status: Acute Plan: Resolved, labs in AM <Debbie Godinez - Last Filed: 08/04/18 09:23> - Assessment (1) Acute kidney injury Code(s): N17.9 - Acute kidney failure, unspecified Status: Acute Plan: Patient seen and examined, agree with above. Watch for renal recovery. To continue fluid restriction. HD to continue MWF. (2) Endocarditis Code(s): I38 - Endocarditis, valve unspecified Status: Acute (3) Hyperkalemia Code(s): E87.5 - Hyperkalemia Status: Acute <Bhargav Monge - Last Filed: 08/12/18 11:30>
--- NOTE | 2018-08-04 17:29 | P.PNIM ---
Subjective Interval history: Patient does not feel like speaking to me today. She says she does not have any current complaints. Physical Exam Vital signs: Vital Signs 08/03/18 19:53 08/03/18 22:33 08/04/18 00:00 Temperature 98.7 F 97.9 F Pulse Rate 111 H 118 H 82 Respiratory Rate 18 24 18 Blood Pressure 124/82 157/69 H Pulse Oximetry 95 96 08/04/18 03:46 08/04/18 08:00 08/04/18 12:01 Temperature 97.4 F L 98.1 F Pulse Rate 124 H 119 H Respiratory Rate 18 18 20 Blood Pressure 127/89 132/104 H Pulse Oximetry 95 94 L 08/04/18 13:39 08/04/18 16:00 Temperature 98.2 F Pulse Rate 112 H 118 H Respiratory Rate 22 20 Blood Pressure 135/107 H Pulse Oximetry 94 L Intake & Output 08/03/18 08/04/18 08/04/18 18:59 06:59 18:59 Intake Total 750 / 750 480 / 480 50 / 50 Output Total 3200 / 3200 Balance -2450 / -2450 480 / 480 50 / 50 Intake: IV 50 / 50 50 / 50 Ancef 2 GM Premix Inj 2 gm In 50 / 50 50 / 50 50 ml @ 100 mls/hr IV.SIG DAILY SERGE Rx#:[id number] Oral 700 / 700 480 / 480 Output: Urine 200 / 200 Hemodialysis Amount 3000 / 3000 Other: # Voids 2 Date of Last Bowel Movement 08/01/18 08/04/18 Narrative: General patient in no acute distress HEENT extraocular movements are intact, clear oropharyngeal mucosa, no JVD Cardiovascular S1-S2 audible, right permacath in place Respiratory clear to auscultation bilaterally Abdomen soft, nontender, nondistended, normal bowel sounds Extremities no edema 2+ distal pulses in bilateral upper and lower extremities Neuro no neurological deficits Results - Labs CBC & Chem 7: 08/03/18 06:53 08/03/18 06:53 - Procedures 07/14 paracentesis Perm cath Assessment and Plan - Plan Patient is a 28-year-old female with a history of IV drug use. She was admitted previously in May for MSSA septicemia however left AGAINST MEDICAL ADVICE during that admission. As per Dr. mitchell the patient was also seen at [facility] after that incidence and also left AGAINST MEDICAL ADVICE. The patient is now admitted and being treated for suspected MSSA septicemia with suspicion for endocarditis. 1. MSSA septicemia with suspicion for endocarditis 2. Acute kidney injury now on hemodialysis. 3. Hyperkalemia Patient does not appear to be in any acute distress today. The plan will be to continue on antibiotics with IV Ancef. She will need IV antibiotics after hemodialysis with each hemodialysis session. The treatment will continue until end date August 14, 2018 as per infectious disease recommendations. Permacath replaced. Continue with hemodialysis as per nephrology recommendations. Patient is very noncompliant. The patient will be discharged once hemodialysis is scheduled. The patient will need hemodialysis closer to [place] where the patient resides. No change in the current management. Patient is ambulatory.
[2018-08-05 05:15] LABS: Baso # (Auto) 0.1 th/mm3 (0.0-0.2); Eos # (Auto) 0.1 th/mm3 (0.0-0.4); Eos % (Auto) 1.1 % (0.0-4.0); Lymph # (Auto) 3.3 th/mm3 (1.0-4.8); Lymph % (Auto) 37.1 % (9.0-44.0); Mean Corpuscular Hemoglobin 30.5 pg (27.0-34.0); Mean Corpuscular Volume 99.3 fL (80.0-100.0); Mean Platelet Volume 8.4 fL (7.0-11.0); Mono # (Auto) 0.9 th/mm3 (0.0-0.9); Mono % (Auto) 10.1 % (0.0-8.0); Neut # (Auto) 4.5 th/mm3 (1.8-7.7); Neut % (Auto) 50.7 % (16.0-70.0); Platelet Count 200 th/mm3 (150-450); Red Blood Count 3.93 mil/mm3 (4.00-5.30); Red Cell Distribution Width 24.5 % (11.6-17.2); White Blood Count 8.9 th/mm3 (4.0-11.0)
[2018-08-05 05:36] LABS: Mean Corpuscular HGB Conc 30.7 % (32.0-36.0)
[2018-08-05 05:49] LABS: Albumin 2.1 g/dL (3.4-5.0); Calcium 8.9 mg/dL (8.5-10.1); Carbon Dioxide 24.8 meq/L (21.0-32.0); Phosphorus 4.5 mg/dL (2.5-4.9); Potassium 5.7 meq/L (3.5-5.1)
[2018-08-05] MEDS: Heparin - SQ 10,000 UNITS/ML Vial SQ SCH ×3 (06:40→22:28)
[2018-08-05] MEDS: Furosemide 40 MG Tablet PO SCH (08:11)
[2018-08-05] MEDS: Famotidine 20 MG Tablet PO SCH ×2 (08:11→20:12)
[2018-08-05] MEDS: FLUoxetine 10 MG Capsule PO SCH (08:11)
[2018-08-05] MEDS: Calcium Acetate 667 MG Capsule PO SCH ×3 (08:11→17:03)
[2018-08-05] MEDS: Polyethylene Glycol 3350 17 GM Packet PO SCH ×2 (08:12→20:12)
[2018-08-05] MEDS: ceFAZolin 2 GM Premix Inj 2 GM/50 ML PIGGYBACK IV.SIG SCH (08:12)
[2018-08-05] MEDS: Senna/Docusate Sodium 8.6/50 MG Tablet PO SCH ×2 (08:12→20:13)
--- NOTE | 2018-08-05 10:14 | P.PNNP ---
Subjective Interval history: Seen during hemodialysis, tolerating well. Patient is resting with no complaints. <Debbie Godinez - Last Filed: 08/05/18 10:06> Physical Exam Vital signs: Vital Signs 08/04/18 12:01 08/04/18 13:39 08/04/18 16:00 Temperature 98.1 F 98.2 F Pulse Rate 119 H 112 H 118 H Respiratory Rate 20 22 20 Blood Pressure 132/104 H 135/107 H Pulse Oximetry 94 L 94 L 08/04/18 20:00 08/05/18 06:40 08/05/18 08:00 Temperature 97.6 F 97.7 F Pulse Rate 114 H 109 H Respiratory Rate 16 20 19 Blood Pressure 134/99 H 126/81 Pulse Oximetry 97 100 Intake & Output 08/04/18 08/05/18 08/05/18 18:59 06:59 18:59 Intake Total 50 / 50 180 / 180 50 / 50 Balance 50 / 50 180 / 180 50 / 50 Weight 60 kg Intake: IV 50 / 50 50 / 50 Ancef 2 GM Premix Inj 2 gm In 50 / 50 50 / 50 50 ml @ 100 mls/hr IV.SIG DAILY SERGE Rx#:[id number] Oral 180 / 180 Other: # Voids 1 2 Date of Last Bowel Movement 08/04/18 # Bowel Movements 1 Narrative: GENERAL: Alert and oriented. SKIN: Warm and dry. Right IJ Perm cath. HEAD: Normocephalic. EYES: No scleral icterus. No injection or drainage. NECK: Supple, trachea midline. No JVD. CARDIOVASCULAR: Regular rate and rhythm. Murmur RESPIRATORY: Breath sounds equal bilaterally. No accessory muscle use. GASTROINTESTINAL: Abdomen distended. MUSCULOSKELETAL: No cyanosis, or edema. BACK: Nontender without obvious deformity. No CVA tenderness. <Debbie Godinez - Last Filed: 08/05/18 10:06> Vital signs: Vital Signs 08/11/18 11:55 08/11/18 16:00 08/12/18 00:00 Temperature 97.7 F 97.6 F 98.5 F Pulse Rate 108 H 110 H 72 Respiratory Rate 17 19 22 Blood Pressure 113/73 122/90 129/85 Pulse Oximetry 100 100 94 L 08/12/18 00:14 08/12/18 00:15 08/12/18 08:00 Temperature 97.7 F Pulse Rate 72 99 H Respiratory Rate 25 H 18 Blood Pressure 104/79 Pulse Oximetry 94 L 92 L 08/12/18 08:58 Temperature Pulse Rate 80 Respiratory Rate 20 Blood Pressure Pulse Oximetry Intake & Output 08/11/18 08/12/18 08/12/18 18:59 06:59 18:59 Intake Total 900 / 900 480 / 480 Balance 900 / 900 480 / 480 Weight 57.4 kg Intake: IV 0 / 0 Ancef 2 GM Premix Inj 2 gm In 0 / 0 50 ml @ 100 mls/hr IV.SIG DAILY SERGE Rx#:[id number] Oral 900 / 900 480 / 480 Other: # Voids 0 2 Date of Last Bowel Movement 08/11/18 08/11/18 # Bowel Movements 1 <Bhargav Monge - Last Filed: 08/12/18 11:34> Assessment and Plan - Assessment (1) Acute kidney injury Code(s): N17.9 - Acute kidney failure, unspecified Status: Acute Plan: \Acute kidney injury requiring hemodialysis per patient started hemodialysis at the end of May Patient has sepsis with hx of IVDA, developed TED Creatinine was noted to 0.81 on May 04, 2018 Hemodialysis now Wednesday, Wednesday, and Wednesday Plan Avoid nephrotoxins including IV contrast and gadolinium. Epogen with dialysis Continue renal diet and fluid restriction. Continue Lasix daily, Maintain strict I+0's Continue phoslo Requested records to note start date on hemodialysis, in process. Hyperkalemia at 5.7 potassium bath with dialysis altered. Outpatient hemodialysis still to be arranged, not ESRD yet. Seen during hemodialysis, 1 k bath, will remove fluid as tolerated. (2) Endocarditis Code(s): I38 - Endocarditis, valve unspecified Status: Acute Plan: On Ancef 2 grams with stop date on 08/14 (3) Hyperkalemia Code(s): E87.5 - Hyperkalemia Status: Acute Plan: Potassium at 5.7, hemodialysis today and K bath reduced. <Debbie Godinez - Last Filed: 08/05/18 10:06> - Assessment (1) Acute kidney injury Code(s): N17.9 - Acute kidney failure, unspecified Status: Acute Plan: Patient seen and examined, agree with above. Continue HD. Creatinine is still elevated. To continue fluid restriction. (2) Endocarditis Code(s): I38 - Endocarditis, valve unspecified Status: Acute (3) Hyperkalemia Code(s): E87.5 - Hyperkalemia Status: Acute <Bhargav Monge - Last Filed: 08/12/18 11:34>
[2018-08-05] MEDS: Heparin 10,000 UNITS/10 ML Vial (for IV use) OTHER PRN (12:38)
--- NOTE | 2018-08-05 18:53 | P.PNIM ---
Subjective Interval history: Patient says that she is bored. She does not have any other complaints. Physical Exam Vital signs: Vital Signs 08/04/18 20:00 08/05/18 06:40 08/05/18 08:00 Temperature 97.6 F 97.7 F Pulse Rate 114 H 109 H Respiratory Rate 16 20 19 Blood Pressure 134/99 H 126/81 Pulse Oximetry 97 100 08/05/18 16:00 Temperature 97.8 F Pulse Rate 104 H Respiratory Rate 17 Blood Pressure 127/86 Pulse Oximetry 96 Intake & Output 08/04/18 08/05/18 08/05/18 18:59 06:59 18:59 Intake Total 50 / 50 180 / 180 770 / 770 Output Total 3000 / 3000 Balance 50 / 50 180 / 180 -2230 / -2230 Weight 60 kg Intake: IV 50 / 50 50 / 50 Ancef 2 GM Premix Inj 2 gm In 50 / 50 50 / 50 50 ml @ 100 mls/hr IV.SIG DAILY SERGE Rx#:[id number] Oral 180 / 180 720 / 720 Output: Hemodialysis Amount 3000 / 3000 Other: # Voids 1 2 2 Date of Last Bowel Movement 08/04/18 08/05/18 # Bowel Movements 1 1 Narrative: General patient in no acute distress HEENT extraocular movements are intact, clear oropharyngeal mucosa, no JVD Cardiovascular S1-S2 audible, right permacath in place Respiratory clear to auscultation bilaterally Abdomen soft, nontender, nondistended, normal bowel sounds Extremities no edema 2+ distal pulses in bilateral upper and lower extremities Neuro no neurological deficits Results - Labs CBC & Chem 7: 08/05/18 04:18 08/05/18 04:18 Laboratory Results - last 24 hr 08/05/18 08/05/18 04:18 04:18 WBC 8.9 RBC 3.93 L Hgb 12.0 Hct 39.0 MCV 99.3 MCH 30.5 MCHC 30.7 L RDW 24.5 H Plt Count 200 MPV 8.4 Prelim Diff (Auto) Slide review pending Neut % (Auto) 50.7 Lymph % (Auto) 37.1 [place] % (Auto) 10.1 H Eos % (Auto) 1.1 Baso % (Auto) 1.0 Neut # (Auto) 4.5 Lymph # (Auto) 3.3 [place] # (Auto) 0.9 Eos # (Auto) 0.1 Baso # (Auto) 0.1 WBC Differential . Diff Scan Auto diff confirmed Differential Comment . Sodium 133 L Potassium 5.7 H D Chloride 95 L Carbon Dioxide 24.8 Anion Gap 13 BUN 50 H Creatinine 5.23 H Estimated GFR 10 L Random Glucose 85 Calcium 8.9 Phosphorus 4.5 Albumin 2.1 L - Procedures 07/14 paracentesis Perm cath Assessment and Plan - Plan Patient is a 28-year-old female with a history of IV drug use. She was admitted previously in May for MSSA septicemia however left AGAINST MEDICAL ADVICE during that admission. As per Dr. mitchell the patient was also seen at [facility] after that incidence and also left AGAINST MEDICAL ADVICE. The patient is now admitted and being treated for suspected MSSA septicemia with suspicion for endocarditis. 1. MSSA septicemia with suspicion for endocarditis 2. Acute kidney injury now on hemodialysis. 3. Hyperkalemia Patient does not appear to be in any acute distress today, she says she is bored and wants to go home. There is no change in the current plan. The plan will be to continue on antibiotics with IV Ancef. She will need IV antibiotics after hemodialysis with each hemodialysis session. The treatment will continue until end date August 14, 2018 as per infectious disease recommendations. Permacath replaced. Patient received hemodialysis today, 3 L of fluid removed Continue with hemodialysis as per nephrology recommendations. Patient is very noncompliant. The patient will be discharged once hemodialysis is scheduled. The patient will need hemodialysis closer to [place] where the patient resides. No change in the current management. Patient is ambulatory.
[2018-08-06] MEDS: Heparin - SQ 10,000 UNITS/ML Vial SQ SCH ×3 (06:05→21:00)
[2018-08-06] MEDS: Senna/Docusate Sodium 8.6/50 MG Tablet PO SCH ×2 (09:41→20:53)
[2018-08-06] MEDS: Furosemide 40 MG Tablet PO SCH (09:42)
[2018-08-06] MEDS: Calcium Acetate 667 MG Capsule PO SCH ×3 (09:43→17:26)
[2018-08-06] MEDS: Polyethylene Glycol 3350 17 GM Packet PO SCH ×2 (09:43→20:52)
[2018-08-06] MEDS: FLUoxetine 10 MG Capsule PO SCH (09:43)
[2018-08-06] MEDS: Famotidine 20 MG Tablet PO SCH ×2 (09:43→20:53)
--- NOTE | 2018-08-06 13:14 | P.PNNP ---
Subjective Interval history: Had a cough after breathing treatment, nurses reported she is upset and noncooperative Threatening to leave AGAINST MEDICAL ADVICE Physical Exam Vital signs: Vital Signs 08/05/18 16:00 08/05/18 20:00 08/06/18 00:00 Temperature 97.8 F 97.6 F 98.6 F Pulse Rate 104 H 99 H 110 H Respiratory Rate 17 17 19 Blood Pressure 127/86 119/86 115/84 Pulse Oximetry 96 98 96 08/06/18 01:10 08/06/18 01:37 08/06/18 04:00 Temperature 98.7 F Pulse Rate 110 H 112 H Respiratory Rate 16 18 19 Blood Pressure 124/86 Pulse Oximetry 97 08/06/18 08:00 08/06/18 12:00 Temperature 97.9 F 97.9 F Pulse Rate 115 H 122 H Respiratory Rate 19 19 Blood Pressure 130/99 H 139/98 H Pulse Oximetry 100 98 Intake & Output 08/05/18 08/06/18 08/06/18 18:59 06:59 18:59 Intake Total 770 / 770 356 / 356 Output Total 3000 / 3000 Balance -2230 / -2230 356 / 356 Weight 56.9 kg Intake: IV 50 / 50 Ancef 2 GM Premix Inj 2 gm In 50 / 50 50 ml @ 100 mls/hr IV.SIG DAILY SERGE Rx#:[id number] Oral 720 / 720 356 / 356 Output: Hemodialysis Amount 3000 / 3000 Other: # Voids 2 3 Date of Last Bowel Movement 08/05/18 08/05/18 08/05/18 # Bowel Movements 1 Narrative: General patient in no acute distress HEENT extraocular movements are intact, clear oropharyngeal mucosa, no JVD Cardiovascular S1-S2 audible, right permacath in place Respiratory clear to auscultation bilaterally Abdomen soft, nontender, nondistended, normal bowel sounds Extremities no edema 2+ distal pulses in bilateral upper and lower extremities Neuro no neurological deficits Assessment and Plan - Assessment (1) Acute kidney injury Code(s): N17.9 - Acute kidney failure, unspecified Status: Acute Plan: \Acute kidney injury requiring hemodialysis per patient started hemodialysis at the end of May Patient has sepsis with hx of IVDA, developed TED Creatinine was noted to 0.81 on May 04, 2018 Hemodialysis now Wednesday, Wednesday, and Wednesday Plan Avoid nephrotoxins including IV contrast and gadolinium. Epogen with dialysis Continue renal diet and fluid restriction. Continue Lasix daily, Maintain strict I+0's Continue dougie Requested records to note start date on hemodialysis, in process. Had hemodialysis yesterday Patient has a permacath and cannot leave may have to be Lee acted as she is on dialysis Discussed with primary team (2) Endocarditis Code(s): I38 - Endocarditis, valve unspecified Status: Acute Plan: On Ancef 2 grams with stop date on 08/14 (3) Hyperkalemia Code(s): E87.5 - Hyperkalemia Status: Acute Plan: Potassium at 5.7, hemodialysis today and K bath reduced.
[2018-08-06] MEDS: ceFAZolin 2 GM Premix Inj 2 GM/50 ML PIGGYBACK IV.SIG SCH (14:34)
--- NOTE | 2018-08-06 18:34 | P.PNIM ---
Subjective Interval history: Patient is agitated today. She is upset after a failed attempt at an IV line. She does not want to be bothered and does not want IV antibiotics today. Physical Exam Vital signs: Vital Signs 08/05/18 20:00 08/06/18 00:00 08/06/18 01:10 Temperature 97.6 F 98.6 F Pulse Rate 99 H 110 H 110 H Respiratory Rate 17 19 16 Blood Pressure 119/86 115/84 Pulse Oximetry 98 96 08/06/18 01:37 08/06/18 04:00 08/06/18 08:00 Temperature 98.7 F 97.9 F Pulse Rate 112 H 115 H Respiratory Rate 18 19 19 Blood Pressure 124/86 130/99 H Pulse Oximetry 97 100 08/06/18 12:00 08/06/18 16:01 08/06/18 18:25 Temperature 97.9 F 99.4 F Pulse Rate 122 H 123 H 123 H Respiratory Rate 19 18 24 Blood Pressure 139/98 H 132/106 H Pulse Oximetry 98 98 Intake & Output 08/05/18 08/06/18 08/06/18 18:59 06:59 18:59 Intake Total 770 / 770 356 / 356 960 / 960 Output Total 3000 / 3000 Balance -2230 / -2230 356 / 356 960 / 960 Weight 56.9 kg Intake: IV 50 / 50 Ancef 2 GM Premix Inj 2 gm In 50 / 50 50 ml @ 100 mls/hr IV.SIG DAILY SERGE Rx#:[id number] Oral 720 / 720 356 / 356 960 / 960 Output: Hemodialysis Amount 3000 / 3000 Other: # Voids 2 3 2 Date of Last Bowel Movement 08/05/18 08/05/18 08/05/18 # Bowel Movements 1 Narrative: General patient in no acute distress however appears angry because of a failed attempt trying to get an IV line. HEENT extraocular movements are intact, clear oropharyngeal mucosa, no JVD Cardiovascular S1-S2 audible, right permacath in place Respiratory clear to auscultation bilaterally Abdomen soft, nontender, nondistended, normal bowel sounds Extremities no edema 2+ distal pulses in bilateral upper and lower extremities Neuro no neurological deficits Results - Labs CBC & Chem 7: 08/05/18 04:18 08/05/18 04:18 - Procedures 07/14 paracentesis Perm cath Assessment and Plan - Plan Patient is a 28-year-old female with a history of IV drug use. She was admitted previously in May for MSSA septicemia however left AGAINST MEDICAL ADVICE during that admission. As per Dr. mitchell the patient was also seen at [facility] after that incidence and also left AGAINST MEDICAL ADVICE. The patient is now admitted and being treated for suspected MSSA septicemia with suspicion for endocarditis. 1. MSSA septicemia with suspicion for endocarditis 2. Acute kidney injury now on hemodialysis. 3. Hyperkalemia Patient was complaining of IV sticks today. She does not want to have an IV line placed. She is refusing her IV antibiotics. The risks of medication noncompliance were discussed with the patient however she does not want an IV line today. No change in the current plan. Case management is trying to set up hemodialysis at a facility close to the patient's home near [place]. The plan will be to continue on antibiotics with IV Ancef. She will need IV antibiotics after hemodialysis with each hemodialysis session. The treatment will continue until end date August 14, 2018 as per infectious disease recommendations. Permacath replaced. Patient received hemodialysis today, 3 L of fluid removed Continue with hemodialysis as per nephrology recommendations. Patient is very noncompliant. The patient will be discharged once hemodialysis is scheduled. The patient will need hemodialysis closer to [place] where the patient resides. No change in the current management. Patient is ambulatory.
[2018-08-07] MEDS: Heparin - SQ 10,000 UNITS/ML Vial SQ SCH ×3 (05:50→21:38)
[2018-08-07] MEDS: Furosemide 40 MG Tablet PO SCH (08:00)
[2018-08-07] MEDS: FLUoxetine 10 MG Capsule PO SCH (08:00)
[2018-08-07] MEDS: Calcium Acetate 667 MG Capsule PO SCH ×3 (08:00→17:21)
[2018-08-07] MEDS: Senna/Docusate Sodium 8.6/50 MG Tablet PO SCH ×2 (08:51→21:38)
[2018-08-07] MEDS: ceFAZolin 2 GM Premix Inj 2 GM/50 ML PIGGYBACK IV.SIG SCH (08:51)
[2018-08-07] MEDS: Polyethylene Glycol 3350 17 GM Packet PO SCH ×2 (08:51→21:38)
[2018-08-07] MEDS: Famotidine 20 MG Tablet PO SCH ×2 (08:51→21:36)
--- NOTE | 2018-08-07 15:28 | P.PNNP ---
Subjective Interval history: Patient refused IV after failed attempt MSSA bacteremia possible endocarditis Physical Exam Vital signs: Vital Signs 08/06/18 16:01 08/06/18 18:25 08/06/18 20:00 Temperature 99.4 F 98.5 F Pulse Rate 123 H 123 H 124 H Respiratory Rate 18 24 18 Blood Pressure 132/106 H 140/99 H Pulse Oximetry 98 97 08/07/18 00:00 08/07/18 08:00 08/07/18 12:00 Temperature 98.2 F 98.9 F 98.0 F Pulse Rate 123 H 126 H 118 H Respiratory Rate 20 22 19 Blood Pressure 139/107 H 139/88 124/90 Pulse Oximetry 99 95 98 Intake & Output 08/06/18 08/07/18 08/07/18 18:59 06:59 18:59 Intake Total 960 / 960 961 / 961 Balance 960 / 960 961 / 961 Weight 58.8 kg Intake: Oral 960 / 960 961 / 961 Other: # Voids 2 3 Date of Last Bowel Movement 08/05/18 08/07/18 # Bowel Movements 1 Narrative: GENERAL: Well-nourished, well-developed patient. SKIN: Warm and dry. HEAD: Normocephalic. EYES: No scleral icterus. No injection or drainage. NECK: Supple, trachea midline. No JVD or lymphadenopathy. CARDIOVASCULAR: Tachycardia. RESPIRATORY: Breath sounds equal bilaterally. No accessory muscle use. GASTROINTESTINAL: Abdomen soft, non-tender, nondistended. EXTREMITIES: No edema NEUROLOGICAL: Awake, alert, and oriented x 3. Non-focal. Assessment and Plan - Assessment (1) Acute kidney injury Code(s): N17.9 - Acute kidney failure, unspecified Status: Acute Plan: \Acute kidney injury requiring hemodialysis per patient started hemodialysis at the end of May Patient has sepsis with hx of IVDA, developed TED Creatinine was noted to 0.81 on May 04, 2018 Hemodialysis now Wednesday, Wednesday, and Wednesday Plan Avoid nephrotoxins including IV contrast and gadolinium. Epogen with dialysis Continue renal diet and fluid restriction. Continue Lasix daily, Maintain strict I+0's Continue phoslo Patient refusing IV after failed attempt and has not received antibiotic however blood culture has been negative She had methicillin sensitive staph aureus He states she is passing more urine I told her the importance of getting blood tests checked in the morning Patient has a permacath Dr. Monge follow (2) Endocarditis Code(s): I38 - Endocarditis, valve unspecified Status: Acute Plan: On Ancef 2 grams with stop date on 08/14 (3) Hyperkalemia Code(s): E87.5 - Hyperkalemia Status: Acute Plan: Potassium at 5.7, hemodialysis today and K bath reduced.
--- NOTE | 2018-08-07 19:50 | P.PNIM ---
Subjective Interval history: Patient is laying down in bed. She says she is bored she does not have any other specific complaints. Physical Exam Vital signs: Vital Signs 08/06/18 20:00 08/07/18 00:00 08/07/18 08:00 Temperature 98.5 F 98.2 F 98.9 F Pulse Rate 124 H 123 H 126 H Respiratory Rate 18 20 22 Blood Pressure 140/99 H 139/107 H 139/88 Pulse Oximetry 97 99 95 08/07/18 12:00 08/07/18 16:00 Temperature 98.0 F 97.3 F L Pulse Rate 118 H 108 H Respiratory Rate 19 18 Blood Pressure 124/90 132/90 Pulse Oximetry 98 98 Intake & Output 08/07/18 08/07/18 08/08/18 06:59 18:59 06:59 Intake Total 961 / 961 1200 / 1200 Balance 961 / 961 1200 / 1200 Weight 58.8 kg Intake: Oral 961 / 961 1200 / 1200 Other: # Voids 3 3 Date of Last Bowel Movement 08/07/18 # Bowel Movements 1 Narrative: General patient in no acute distress HEENT extraocular movements are intact, clear oropharyngeal mucosa, no JVD Cardiovascular S1-S2 audible, right permacath in place Respiratory clear to auscultation bilaterally Abdomen soft, nontender, nondistended, normal bowel sounds Extremities no edema 2+ distal pulses in bilateral upper and lower extremities Neuro no neurological deficits Results - Labs CBC & Chem 7: 08/05/18 04:18 08/05/18 04:18 - Procedures 07/14 paracentesis Perm cath Assessment and Plan - Plan Patient is a 28-year-old female with a history of IV drug use. She was admitted previously in May for MSSA septicemia however left AGAINST MEDICAL ADVICE during that admission. As per Dr. mitchell the patient was also seen at [facility] after that incidence and also left AGAINST MEDICAL ADVICE. The patient is now admitted and being treated for suspected MSSA septicemia with suspicion for endocarditis. 1. MSSA septicemia with suspicion for endocarditis 2. Acute kidney injury now on hemodialysis. 3. Hyperkalemia Patient is laying down in bed today. She does not have any specific complaints. She does not feel like talking today. She says that she is frustrated with her current situation. No change in the patient's current plan. The plan will be to continue on antibiotics with IV Ancef. She will need IV antibiotics after hemodialysis with each hemodialysis session. The treatment will continue until end date August 14, 2018 as per infectious disease recommendations. Permacath replaced. Patient received hemodialysis today, 3 L of fluid removed Continue with hemodialysis as per nephrology recommendations. Patient is very noncompliant, and was been refusing IV antibiotics yesterday. The patient will be discharged once hemodialysis is scheduled. The patient will need hemodialysis closer to [place] where the patient resides. No change in the current management. Patient is ambulatory.
[2018-08-08] MEDS: Heparin - SQ 10,000 UNITS/ML Vial SQ SCH ×3 (06:16→21:22)
[2018-08-08] MEDS: Famotidine 20 MG Tablet PO SCH ×2 (08:24→21:21)
[2018-08-08] MEDS: FLUoxetine 10 MG Capsule PO SCH (08:24)
[2018-08-08] MEDS: Furosemide 40 MG Tablet PO SCH (08:25)
[2018-08-08] MEDS: ceFAZolin 2 GM Premix Inj 2 GM/50 ML PIGGYBACK IV.SIG SCH ×2 (08:26→11:51)
[2018-08-08] MEDS: Calcium Acetate 667 MG Capsule PO SCH ×3 (08:27→17:24)
[2018-08-08] MEDS: Senna/Docusate Sodium 8.6/50 MG Tablet PO SCH ×2 (08:27→21:23)
[2018-08-08] MEDS: Polyethylene Glycol 3350 17 GM Packet PO SCH ×2 (08:27→21:23)
--- NOTE | 2018-08-08 11:02 | P.PNNP ---
Subjective Interval history: Seen during hemodialysis, permacath with poor flow, possible positionally. Reports increase in abdominal distention. <Debbie Godinez - Last Filed: 08/08/18 11:05> Physical Exam Vital signs: Vital Signs 08/07/18 12:00 08/07/18 16:00 08/07/18 20:00 Temperature 98.0 F 97.3 F L 97.4 F L Pulse Rate 118 H 108 H 107 H Respiratory Rate 19 18 20 Blood Pressure 124/90 132/90 128/85 Pulse Oximetry 98 98 96 08/08/18 00:00 08/08/18 00:04 08/08/18 06:42 Temperature 98.1 F Pulse Rate 113 H 107 H 114 H Respiratory Rate 18 22 24 Blood Pressure 122/96 H 128/70 Pulse Oximetry 96 08/08/18 08:00 08/08/18 08:28 Temperature 97.3 F L Pulse Rate 114 H 114 H Respiratory Rate 24 18 Blood Pressure 132/97 H Pulse Oximetry 94 L Intake & Output 08/07/18 08/08/18 08/08/18 18:59 06:59 18:59 Intake Total 1200 / 1200 467 / 467 Balance 1200 / 1200 467 / 467 Intake: Oral 1200 / 1200 467 / 467 Other: # Voids 3 4 Narrative: GENERAL: Alert and oriented. SKIN: Warm and dry. Right IJ Perm cath. HEAD: Normocephalic. EYES: No scleral icterus. No injection or drainage. NECK: Supple, trachea midline. No JVD. CARDIOVASCULAR: Regular rate and rhythm. Murmur RESPIRATORY: Breath sounds equal bilaterally. No accessory muscle use. GASTROINTESTINAL: Abdomen distended. MUSCULOSKELETAL: No cyanosis, or edema. BACK: Nontender without obvious deformity. No CVA tenderness. <Debbie Godinez - Last Filed: 08/08/18 11:05> Vital signs: Vital Signs 08/15/18 20:00 08/16/18 00:00 08/16/18 08:00 Temperature 98 F 97.2 F L 97.9 F Pulse Rate 99 H 97 H 99 H Respiratory Rate 17 17 18 Blood Pressure 114/63 126/83 118/86 Pulse Oximetry 95 95 90 L 08/16/18 08:50 08/16/18 12:00 08/16/18 16:00 Temperature 97.7 F 97.9 F Pulse Rate 101 H 100 H Respiratory Rate 17 18 Blood Pressure 120/80 107/78 Pulse Oximetry 94 L 91 L 92 L Intake & Output 08/15/18 08/16/18 08/16/18 18:59 06:59 18:59 Intake Total 550 / 550 480 / 480 Output Total 2300 / 2300 Balance -1750 / -1750 480 / 480 Weight 56 kg Intake: IV 50 / 50 Ancef 2 GM Premix Inj 2 gm In 50 / 50 50 ml @ 100 mls/hr IV.SIG DAILY SERGE Rx#:[id number] Oral 500 / 500 480 / 480 Output: Urine 300 / 300 Hemodialysis Amount 1999 Other: # Voids 1 Date of Last Bowel Movement 08/13/18 08/15/18 08/16/18 <Bhargav Monge - Last Filed: 08/16/18 17:05> Assessment and Plan - Assessment (1) Acute kidney injury Code(s): N17.9 - Acute kidney failure, unspecified Status: Acute Plan: Acute kidney injury requiring hemodialysis per patient started hemodialysis at the end of May Patient has sepsis with hx of IVDA, developed TED Creatinine was noted to 0.81 on May 04, 2018 Hemodialysis now Wednesday, Wednesday, and Wednesday Plan Avoid nephrotoxins including IV contrast and gadolinium. Epogen with dialysis Continue renal diet and fluid restriction. Continue Lasix daily, Maintain strict I+0's Continue phoslo Seen during hemodialysis will remove fluid as tolerated Labs in AM (2) Endocarditis Code(s): I38 - Endocarditis, valve unspecified Status: Acute Plan: On Ancef 2 grams with stop date on 08/14 Has lost IV access refusing to have another access , will administer at end of dialysis (3) Hyperkalemia Code(s): E87.5 - Hyperkalemia Status: Acute Plan: No new labs available. labs in am <Debbie Godinez - Last Filed: 08/08/18 11:05> - Assessment (1) Acute kidney injury Code(s): N17.9 - Acute kidney failure, unspecified Status: Acute Plan: Patient seen and examined, agree with above. Continue HD, MWF, Watch for renal recovery. (2) Endocarditis Code(s): I38 - Endocarditis, valve unspecified Status: Acute Qualifiers: Endocarditis type: infective Infective endocarditis organism: bacterial Chronicity: acute Qualified Code(s): I33.0 - Acute and subacute infective endocarditis (3) Hyperkalemia Code(s): E87.5 - Hyperkalemia Status: Acute <Bhargav Monge - Last Filed: 08/16/18 17:05>
[2018-08-08] MEDS: Heparin 10,000 UNITS/10 ML Vial (for IV use) OTHER PRN (11:50)
--- NOTE | 2018-08-08 16:27 | P.PN ---
Subjective Interval history: Follow-up visit for endocarditis, ARF requiring HD, and suspected CHF. Patient is seen and examined resting in bed with and appears to be in no acute distress. Reports that she is tired, she also complains of abdominal discomfort and feels as though her abdomen is larger. Nausea, but no vomiting, she is having regular BM's. Physical Exam Vital signs: Vital Signs 08/07/18 20:00 08/08/18 00:00 08/08/18 00:04 Temperature 97.4 F L 98.1 F Pulse Rate 107 H 113 H 107 H Respiratory Rate 20 18 22 Blood Pressure 128/85 122/96 H Pulse Oximetry 96 96 08/08/18 06:42 08/08/18 08:00 08/08/18 08:28 Temperature 97.3 F L Pulse Rate 114 H 114 H 114 H Respiratory Rate 24 24 18 Blood Pressure 128/70 132/97 H Pulse Oximetry 94 L Intake & Output 08/07/18 08/08/18 08/08/18 18:59 06:59 18:59 Intake Total 1200 / 1200 467 / 467 250 / 250 Output Total 3000 / 3000 Balance 1200 / 1200 467 / 467 -2750 / -2750 Intake: IV 50 / 50 Ancef 2 GM Premix Inj 2 gm In 50 / 50 50 ml @ 100 mls/hr IV.SIG DAILY [facility] Rx#:[id number] Oral 1200 / 1200 467 / 467 200 / 200 Output: Hemodialysis Amount 3000 / 3000 Other: # Voids 3 4 Narrative: GENERAL: Alert and oriented. SKIN: Warm and dry. Right IJ Perm cath with D/I dressing. HEAD: Normocephalic. EYES: No scleral icterus. No injection or drainage. NECK: Supple, trachea midline. No JVD. CARDIOVASCULAR: Tachycardic with 3/6 murmur. RESPIRATORY: Breath sounds equal bilaterally. No accessory muscle use. GASTROINTESTINAL: Ascites with soft abdomen, +BS with diffused tenderness. MUSCULOSKELETAL: No cyanosis, or edema. BACK: Nontender without obvious deformity. Results - Labs CBC & Chem 7: 08/05/18 04:18 08/05/18 04:18 - Procedures 07/14 paracentesis Perm cath Assessment and Plan - Plan 28-year-old female with infective tricuspid valve endocarditis and multiorgan dysfunction secondary to endocarditis. remains in heart failure and volume overload, and associated organ failure, including severe renal failure requiring renal replacement therapy. continue to daily pull fluid by HD. Broad spectrum abx. can leave ICU. overall prognosis is quite poor given history of leaving AMA: she will likely not survive if she continues to leave AMA. Infective tricuspid valve endocarditis Moderate tricuspid valve regurgitation Mixed septic and cardiogenic shock secondary to infective endocarditis- resolving. Sinus tachycardia Bedside echo shows large tricuspid regurgitation with moderate to severe TR With noncompliance and multiple AMA discharges, Not a candidate for valve replacement until she can complete antibiotic therapy and demonstrate medical compliance by not leaving AMA. Nephrology consulted for hemodialysis ID recommends IV Ancef for MSSA, with end date 08/14, can be done as outpatient w/ HD IV drug dependence prn oxycodone to prevent withdraws Severe acute kidney injury requiring renal replacement therapy. Patient came with outside hospital dialysis access in place. Perm cath in place nephrology following, appreciate assistance Continue renal diet with fluid restriction 1.5L Suspected CHF exacerbation ricuspid regurgitation. Seen on outside echo BNP above 5000 (07/21), obviously affected by renal failure. Ascites is likely secondary CHF. Ascites Secondary to severe renal injury and suspected CHF Paracentesis 07/17 with 2.1L removed Patient has noticed increase in abdominal size, check US of abdomen for possible paracentesis. GI Prophylaxis pepcid DVT Prophylaxis - SCDs/Heparin subcutaneous. 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 Needs Dx of chronic/ESRD to arrange for transitional HD, this needs to be done by nephrology.
--- NOTE | 2018-08-08 18:17 | US ---
EXAM DATE: 08/08/2018 12:00 AM EDT AGE/SEX: 28 years / Female INDICATIONS: Ascites. CLINICAL DATA: This is the patient's subsequent encounter. Patient reports that signs and symptoms h ave been present for 3 months and indicates a pain score of 0/10. MEDICAL/SURGICAL HISTORY: Asthma. Cholecystitis.Endocarditis. . Tooth extraction. COMPARISON: [facility], US PARACENTESIS ABD W/IMAGE, 07/17/2018. . FINDINGS: Limited ultrasound of the lower abdomen demonstrates a moderate amount of ascites with the largest co llection measuring 10 cm in AP dimension and 7 cm in width. CONCLUSION: 1. Moderate amount of ascites. Electronically signed by: Marcin Gonsalves MD 08/08/2018 6:16 PM EDT
[2018-08-09] MEDS: Heparin - SQ 10,000 UNITS/ML Vial SQ SCH ×3 (05:50→21:06)
[2018-08-09] MEDS: Famotidine 20 MG Tablet PO SCH ×2 (09:16→21:06)
[2018-08-09] MEDS: Furosemide 40 MG Tablet PO SCH (09:16)
[2018-08-09] MEDS: FLUoxetine 10 MG Capsule PO SCH (09:16)
[2018-08-09] MEDS: Calcium Acetate 667 MG Capsule PO SCH ×3 (09:16→17:53)
[2018-08-09] MEDS: Polyethylene Glycol 3350 17 GM Packet PO SCH ×2 (09:17→21:06)
[2018-08-09] MEDS: ceFAZolin 2 GM Premix Inj 2 GM/50 ML PIGGYBACK IV.SIG SCH (09:17)
[2018-08-09] MEDS: Senna/Docusate Sodium 8.6/50 MG Tablet PO SCH ×2 (09:17→21:06)
[2018-08-09 09:33] LABS: Baso # (Auto) 0.1 th/mm3 (0.0-0.2); Baso % (Auto) 0.9 % (0.0-2.0); Eos # (Auto) 0.1 th/mm3 (0.0-0.4); Hematocrit 36.9 % (35.0-46.0); Hemoglobin 11.3 gm/dL (11.6-15.3); Lymph # (Auto) 2.7 th/mm3 (1.0-4.8); Lymph % (Auto) 30.1 % (9.0-44.0); Mean Corpuscular Hemoglobin 30.6 pg (27.0-34.0); Mean Corpuscular Volume 100.1 fL (80.0-100.0); Mean Platelet Volume 8.5 fL (7.0-11.0); Mono # (Auto) 0.9 th/mm3 (0.0-0.9); Mono % (Auto) 9.7 % (0.0-8.0); Neut # (Auto) 5.3 th/mm3 (1.8-7.7); Neut % (Auto) 58.3 % (16.0-70.0); Platelet Count 150 th/mm3 (150-450); Red Blood Count 3.68 mil/mm3 (4.00-5.30); Red Cell Distribution Width 24.4 % (11.6-17.2); White Blood Count 9.1 th/mm3 (4.0-11.0)
[2018-08-09 09:39] LABS: Mean Corpuscular HGB Conc 30.6 % (32.0-36.0)
[2018-08-09 09:56] LABS: Calcium 8.6 mg/dL (8.5-10.1); Carbon Dioxide 22.7 meq/L (21.0-32.0); Phosphorus 3.7 mg/dL (2.5-4.9)
--- NOTE | 2018-08-09 10:34 | P.PNNP ---
Subjective Interval history: No acute events overnight. Reports abdominal distention and discomfort. <Debbie Godinez - Last Filed: 08/09/18 22:14> Physical Exam Vital signs: Vital Signs 08/08/18 16:00 08/08/18 20:00 08/09/18 00:00 Temperature 97.8 F 97.9 F 97.8 F Pulse Rate 114 H 112 H 112 H Respiratory Rate 20 17 17 Blood Pressure 126/86 125/96 H 133/99 H Pulse Oximetry 93 L 96 96 08/09/18 08:00 08/09/18 09:34 Temperature 98.4 F Pulse Rate 110 H 113 H Respiratory Rate 17 20 Blood Pressure 126/90 Pulse Oximetry 100 98 Intake & Output 08/08/18 08/09/18 08/09/18 18:59 06:59 18:59 Intake Total 570 / 570 240 / 240 Output Total 3400 / 3400 150 / 150 Balance -2830 / -2830 90 / 90 Intake: IV 50 / 50 Ancef 2 GM Premix Inj 2 gm In 50 / 50 50 ml @ 100 mls/hr IV.SIG DAILY SERGE Rx#:[id number] Oral 520 / 520 240 / 240 Output: Urine 400 / 400 150 / 150 Hemodialysis Amount 3000 / 3000 Other: Date of Last Bowel Movement 08/08/18 # Bowel Movements 1 Narrative: GENERAL: Alert and oriented. SKIN: Warm and dry. Right IJ Perm cath. HEAD: Normocephalic. EYES: No scleral icterus. No injection or drainage. NECK: Supple, trachea midline. No JVD. CARDIOVASCULAR: Tachycardic. Murmur. RESPIRATORY: Breath sounds equal bilaterally. No accessory muscle use. GASTROINTESTINAL: Abdomen distended. Positive bowel sounds. MUSCULOSKELETAL: No cyanosis, or edema. BACK: Nontender without obvious deformity. <Debbie Godinez - Last Filed: 08/09/18 22:14> Vital signs: Vital Signs 08/15/18 20:00 08/16/18 00:00 08/16/18 08:00 Temperature 98 F 97.2 F L 97.9 F Pulse Rate 99 H 97 H 99 H Respiratory Rate 17 17 18 Blood Pressure 114/63 126/83 118/86 Pulse Oximetry 95 95 90 L 08/16/18 08:50 08/16/18 12:00 08/16/18 16:00 Temperature 97.7 F 97.9 F Pulse Rate 101 H 100 H Respiratory Rate 17 18 Blood Pressure 120/80 107/78 Pulse Oximetry 94 L 91 L 92 L Intake & Output 08/15/18 08/16/18 08/16/18 18:59 06:59 18:59 Intake Total 550 / 550 480 / 480 Output Total 2300 / 2300 Balance -1750 / -1750 480 / 480 Weight 56 kg Intake: IV 50 / 50 Ancef 2 GM Premix Inj 2 gm In 50 / 50 50 ml @ 100 mls/hr IV.SIG DAILY SERGE Rx#:[id number] Oral 500 / 500 480 / 480 Output: Urine 300 / 300 Hemodialysis Amount 1999 Other: # Voids 1 Date of Last Bowel Movement 08/13/18 08/15/18 08/16/18 <Bhargav Monge - Last Filed: 08/16/18 17:11> Assessment and Plan - Assessment (1) Acute kidney injury Code(s): N17.9 - Acute kidney failure, unspecified Status: Acute Plan: Acute kidney injury requiring hemodialysis per patient started hemodialysis at the end of May Patient has sepsis with hx of IVDA, developed TED Creatinine was noted to 0.81 on May 04, 2018 Hemodialysis Wednesday, Wednesday, and Wednesday Plan Avoid nephrotoxins including IV contrast and gadolinium. Epogen with dialysis Continue renal diet and fluid restriction. Continue Lasix daily, Maintain strict I+0's Continue phoslo Requested records to note start date on hemodialysis, in process. Outpatient hemodialysis still to be arranged, not ESRD yet. Hemodialysis tomorrow. (2) Endocarditis Code(s): I38 - Endocarditis, valve unspecified Status: Acute Plan: On Ancef 2 grams with stop date on 08/14 (3) Hyperkalemia Code(s): E87.5 - Hyperkalemia Status: Acute Plan: Resolved <Debbie Godinez - Last Filed: 08/09/18 22:14> - Assessment (1) Acute kidney injury Code(s): N17.9 - Acute kidney failure, unspecified Status: Acute Plan: Patient seen and examined, agree with above. Creatinine is still elevated, continue HD as schedule. (2) Endocarditis Code(s): I38 - Endocarditis, valve unspecified Status: Acute Qualifiers: Endocarditis type: infective Infective endocarditis organism: bacterial Chronicity: acute Qualified Code(s): I33.0 - Acute and subacute infective endocarditis (3) Hyperkalemia Code(s): E87.5 - Hyperkalemia Status: Acute <Bhargav Monge - Last Filed: 08/16/18 17:11>
--- NOTE | 2018-08-09 15:32 | P.PN ---
Subjective Interval history: Nursing denies any deterioration since last night. Pt has no complaints. Physical Exam Vital signs: Vital Signs 08/08/18 16:00 08/08/18 20:00 08/09/18 00:00 Temperature 97.8 F 97.9 F 97.8 F Pulse Rate 114 H 112 H 112 H Respiratory Rate 20 17 17 Blood Pressure 126/86 125/96 H 133/99 H Pulse Oximetry 93 L 96 96 08/09/18 08:00 08/09/18 09:34 08/09/18 12:00 Temperature 98.4 F 98.5 F Pulse Rate 110 H 113 H 113 H Respiratory Rate 17 20 18 Blood Pressure 126/90 126/74 Pulse Oximetry 100 98 94 L Intake & Output 08/08/18 08/09/18 08/09/18 18:59 06:59 18:59 Intake Total 570 / 570 240 / 240 50 / 50 Output Total 3400 / 3400 150 / 150 Balance -2830 / -2830 90 / 90 50 / 50 Intake: IV 50 / 50 50 / 50 Ancef 2 GM Premix Inj 2 gm In 50 / 50 50 / 50 50 ml @ 100 mls/hr IV.SIG DAILY [facility] Rx#:[id number] Oral 520 / 520 240 / 240 Output: Urine 400 / 400 150 / 150 Hemodialysis Amount 3000 / 3000 Other: Date of Last Bowel Movement 08/08/18 # Bowel Movements 1 Results - Labs CBC & Chem 7: 08/09/18 08:27 08/09/18 08:27 Laboratory Results - last 24 hr 08/09/18 08/09/18 08:27 08:27 WBC 9.1 RBC 3.68 L Hgb 11.3 L Hct 36.9 MCV 100.1 H MCH 30.6 MCHC 30.6 L RDW 24.4 H Plt Count 150 MPV 8.5 Neut % (Auto) 58.3 Lymph % (Auto) 30.1 [place] % (Auto) 9.7 H Eos % (Auto) 1.0 Baso % (Auto) 0.9 Neut # (Auto) 5.3 Lymph # (Auto) 2.7 [place] # (Auto) 0.9 Eos # (Auto) 0.1 Baso # (Auto) 0.1 WBC Differential . Differential Comment Auto diff final Sodium 132 L Potassium 5.0 Chloride 97 L Carbon Dioxide 22.7 Anion Gap 12 BUN 36 H Creatinine 4.02 H Estimated GFR 13 L Random Glucose 78 Calcium 8.6 Phosphorus 3.7 Albumin 2.0 L - Imaging Impressions Abdomen Ultrasound 08/08/18 00:00 CONCLUSION: 1. Moderate amount of ascites. - Procedures 07/14 paracentesis Perm cath Assessment and Plan - Plan 28-year-old female with infective tricuspid valve endocarditis and multiorgan dysfunction secondary to endocarditis. remains in heart failure and volume overload, and associated organ failure, including severe renal failure requiring renal replacement therapy. continue to daily pull fluid by HD. Broad spectrum abx. overall prognosis is quite poor given history of leaving AMA: she will likely not survive if she continues to leave AMA. Infective tricuspid valve endocarditis Moderate tricuspid valve regurgitation Mixed septic and cardiogenic shock secondary to infective endocarditis- resolving. Sinus tachycardia Bedside echo shows large tricuspid regurgitation with moderate to severe TR With noncompliance and multiple AMA discharges, Not a candidate for valve replacement until she can complete antibiotic therapy and demonstrate medical compliance by not leaving AMA. ID recommends IV Ancef for MSSA, with end date 08/14, can be done as outpatient w/ HD End-stage renal disease -Patient came with outside hospital dialysis access in place. -Perm cath in place nephrology following, appreciate assistance -Continue renal diet with fluid restriction 1.5L -Nephrology following, trying to obtain review outside medical records so that she can be eventually approved for routine dialysis Suspected CHF exacerbation tricuspid regurgitation. Seen on outside echo BNP above 5000 (07/21), obviously affected by renal failure. Ascites is likely secondary CHF. Ascites Secondary to severe renal injury and suspected CHF Paracentesis 07/17 with 2.1L removed Yesterday studies ultrasound showing moderate ascites again, will order INR and schedule for paracentesis tomorrow IV drug dependence prn oxycodone to prevent withdraws GI Prophylaxis pepcid DVT Prophylaxis - SCDs/Heparin subcutaneous. CM working on proceeding with disability process. Needs Dx of chronic/ESRD to arrange for transitional HD which nephrology is pursuing.
[2018-08-09 18:01] LABS: INR 1.6 Ratio; Prothrombin Time 16.1 sec (9.8-11.6)
[2018-08-10] MEDS: Heparin - SQ 10,000 UNITS/ML Vial SQ SCH ×3 (05:30→21:47)
[2018-08-10 07:39] LABS: INR 1.6 Ratio; Prothrombin Time 16.4 sec (9.8-11.6)
[2018-08-10 08:22] LABS: Baso # (Auto) 0.1 th/mm3 (0.0-0.2); Baso % (Auto) 0.7 % (0.0-2.0); Eos # (Auto) 0.1 th/mm3 (0.0-0.4); Eos % (Auto) 0.6 % (0.0-4.0); Hematocrit 37.2 % (35.0-46.0); Hemoglobin 11.4 gm/dL (11.6-15.3); Lymph # (Auto) 2.3 th/mm3 (1.0-4.8); Lymph % (Auto) 25.3 % (9.0-44.0); Mean Corpuscular Volume 101.2 fL (80.0-100.0); Mean Platelet Volume 8.9 fL (7.0-11.0); Mono # (Auto) 0.7 th/mm3 (0.0-0.9); Neut % (Auto) 65.4 % (16.0-70.0); Platelet Count 144 th/mm3 (150-450); Red Blood Count 3.68 mil/mm3 (4.00-5.30); Red Cell Distribution Width 24.8 % (11.6-17.2); White Blood Count 9.3 th/mm3 (4.0-11.0)
[2018-08-10 08:38] LABS: Mean Corpuscular HGB Conc 30.6 % (32.0-36.0)
[2018-08-10] MEDS: Famotidine 20 MG Tablet PO SCH ×3 (08:39→21:45)
[2018-08-10] MEDS: Senna/Docusate Sodium 8.6/50 MG Tablet PO SCH ×2 (08:39→21:46)
[2018-08-10] MEDS: Polyethylene Glycol 3350 17 GM Packet PO SCH ×2 (08:39→21:46)
[2018-08-10] MEDS: Furosemide 40 MG Tablet PO SCH ×2 (08:39→12:37)
[2018-08-10] MEDS: FLUoxetine 10 MG Capsule PO SCH ×2 (08:40→12:41)
[2018-08-10] MEDS: Calcium Acetate 667 MG Capsule PO SCH ×3 (08:40→18:08)
--- NOTE | 2018-08-10 10:22 | P.PNNP ---
Subjective Interval history: Seen during hemodialysis tolerating well. Reports abdominal distention and discomfort. Plan for paracentesis today. <Debbie Godinez - Last Filed: 08/10/18 10:20> Physical Exam Vital signs: Vital Signs 08/09/18 12:00 08/09/18 16:00 08/09/18 17:44 Temperature 98.5 F 97.3 F L Pulse Rate 113 H 128 H Respiratory Rate 18 18 Blood Pressure 126/74 146/85 H Pulse Oximetry 94 L 95 95 08/09/18 20:00 08/10/18 00:00 08/10/18 08:00 Temperature 98.6 F 98.0 F 98.2 F Pulse Rate 112 H 115 H 116 H Respiratory Rate 20 20 19 Blood Pressure 127/98 H 102/61 140/84 Pulse Oximetry 95 98 97 08/10/18 08:06 Temperature Pulse Rate 116 H Respiratory Rate 20 Blood Pressure Pulse Oximetry 96 Intake & Output 08/09/18 08/10/18 08/10/18 18:59 06:59 18:59 Intake Total 550 / 550 Output Total 200 / 200 Balance 350 / 350 Weight 58.8 kg Intake: IV 50 / 50 Ancef 2 GM Premix Inj 2 gm In 50 / 50 50 ml @ 100 mls/hr IV.SIG DAILY SERGE Rx#:[id number] Oral 500 / 500 Output: Urine 200 / 200 Other: # Voids 2 Date of Last Bowel Movement 08/09/18 Narrative: GENERAL: Alert and oriented. SKIN: Warm and dry. Right IJ Perm cath. HEAD: Normocephalic. EYES: No scleral icterus. No injection or drainage. NECK: Supple, trachea midline. No JVD. CARDIOVASCULAR: Tachycardic. Murmur. RESPIRATORY: Breath sounds equal bilaterally. No accessory muscle use. GASTROINTESTINAL: Abdomen distended. Positive bowel sounds. MUSCULOSKELETAL: No cyanosis, or edema. BACK: Nontender without obvious deformity. <Debbie Godinez - Last Filed: 08/10/18 10:20> Vital signs: Vital Signs 08/15/18 20:00 08/16/18 00:00 08/16/18 08:00 Temperature 98 F 97.2 F L 97.9 F Pulse Rate 99 H 97 H 99 H Respiratory Rate 17 17 18 Blood Pressure 114/63 126/83 118/86 Pulse Oximetry 95 95 90 L 08/16/18 08:50 08/16/18 12:00 08/16/18 16:00 Temperature 97.7 F 97.9 F Pulse Rate 101 H 100 H Respiratory Rate 17 18 Blood Pressure 120/80 107/78 Pulse Oximetry 94 L 91 L 92 L Intake & Output 08/15/18 08/16/18 08/16/18 18:59 06:59 18:59 Intake Total 550 / 550 480 / 480 Output Total 2300 / 2300 Balance -1750 / -1750 480 / 480 Weight 56 kg Intake: IV 50 / 50 Ancef 2 GM Premix Inj 2 gm In 50 / 50 50 ml @ 100 mls/hr IV.SIG DAILY SERGE Rx#:[id number] Oral 500 / 500 480 / 480 Output: Urine 300 / 300 Hemodialysis Amount 1999 Other: # Voids 1 Date of Last Bowel Movement 08/13/18 08/15/18 08/16/18 <Bhargav Monge - Last Filed: 08/16/18 17:14> Assessment and Plan - Assessment (1) Acute kidney injury Code(s): N17.9 - Acute kidney failure, unspecified Status: Acute Plan: Acute kidney injury requiring hemodialysis per patient started hemodialysis at the end of May Patient has sepsis with hx of IVDA, developed TED Creatinine was noted to 0.81 on May 04, 2018 Hemodialysis Wednesday, Wednesday, and Wednesday Plan Avoid nephrotoxins including IV contrast and gadolinium. Epogen with dialysis Continue renal diet and fluid restriction. Continue Lasix daily, Maintain strict I+0's Continue phoslo Requested records to note start date on hemodialysis, will review Outpatient hemodialysis still to be arranged, not ESRD yet. Seen during hemodialysis, will remove fluid as tolerated. (2) Endocarditis Code(s): I38 - Endocarditis, valve unspecified Status: Acute Plan: On Ancef 2 grams with stop date on 08/14 (3) Hyperkalemia Code(s): E87.5 - Hyperkalemia Status: Acute Plan: Resolved <Debbie Godinez - Last Filed: 08/10/18 10:20> - Assessment (1) Acute kidney injury Code(s): N17.9 - Acute kidney failure, unspecified Status: Acute Plan: Patient seen and examined, agree with above. Creatinine remain elevated. HD to continue. Watch for renal recovery. (2) Endocarditis Code(s): I38 - Endocarditis, valve unspecified Status: Acute Qualifiers: Endocarditis type: infective Infective endocarditis organism: bacterial Chronicity: acute Qualified Code(s): I33.0 - Acute and subacute infective endocarditis (3) Hyperkalemia Code(s): E87.5 - Hyperkalemia Status: Acute <Bhargav Monge - Last Filed: 08/16/18 17:14>
[2018-08-10] MEDS: ceFAZolin 2 GM Premix Inj 2 GM/50 ML PIGGYBACK IV.SIG SCH (12:42)
--- NOTE | 2018-08-10 14:46 | P.PN ---
Subjective Interval history: Nursing denies any deterioration since last night. Patient seen status post paracentesis, says her abdomen feels better after the procedure. Physical Exam Vital signs: Vital Signs 08/09/18 16:00 08/09/18 17:44 08/09/18 20:00 Temperature 97.3 F L 98.6 F Pulse Rate 128 H 112 H Respiratory Rate 18 20 Blood Pressure 146/85 H 127/98 H Pulse Oximetry 95 95 95 08/10/18 00:00 08/10/18 08:00 08/10/18 08:06 Temperature 98.0 F 98.2 F Pulse Rate 115 H 116 H 116 H Respiratory Rate 20 19 20 Blood Pressure 102/61 140/84 Pulse Oximetry 98 97 96 08/10/18 12:00 08/10/18 13:08 08/10/18 13:56 Temperature 98.6 F 97.4 F L 98.1 F Pulse Rate 108 H 102 H 82 Respiratory Rate 19 18 18 Blood Pressure 132/76 126/93 H 123/88 Pulse Oximetry 100 95 92 L 08/10/18 14:13 Temperature 98.9 F Pulse Rate 105 H Respiratory Rate 18 Blood Pressure 128/96 H Pulse Oximetry 90 L Intake & Output 08/09/18 08/10/18 08/10/18 18:59 06:59 18:59 Intake Total 550 / 550 Output Total 200 / 200 3000 / 3000 Balance 350 / 350 -3000 / -3000 Weight 58.8 kg Intake: IV 50 / 50 Ancef 2 GM Premix Inj 2 gm In 50 / 50 50 ml @ 100 mls/hr IV.SIG DAILY SERGE Rx#:[id number] Oral 500 / 500 Output: Urine 200 / 200 Hemodialysis Amount 3000 / 3000 Other: # Voids 2 Date of Last Bowel Movement 08/09/18 Narrative: Heart sounds regular rate rhythm, no murmurs Clear lungs bilaterally, unlabored breathing Abdomen soft, minimally diffusely tender to palpation, no significant distention Results - Labs CBC & Chem 7: 08/10/18 06:20 08/09/18 08:27 Laboratory Results - last 24 hr 08/09/18 08/10/18 08/10/18 17:05 06:20 06:20 WBC 9.3 RBC 3.68 L Hgb 11.4 L Hct 37.2 MCV 101.2 H MCH 31.0 MCHC 30.6 L RDW 24.8 H Plt Count 144 L MPV 8.9 Neut % (Auto) 65.4 Lymph % (Auto) 25.3 [place] % (Auto) 8.0 Eos % (Auto) 0.6 Baso % (Auto) 0.7 Neut # (Auto) 6.0 Lymph # (Auto) 2.3 [place] # (Auto) 0.7 Eos # (Auto) 0.1 Baso # (Auto) 0.1 WBC Differential . Differential Comment Auto diff final PT 16.1 H 16.4 H INR 1.6 1.6 - Procedures 07/14 paracentesis Perm cath Assessment and Plan - Plan 28-year-old female with infective tricuspid valve endocarditis and multiorgan dysfunction secondary to endocarditis. remains in heart failure and volume overload, and associated organ failure, including severe renal failure requiring renal replacement therapy. continue to daily pull fluid by HD. Broad spectrum abx. overall prognosis is quite poor given history of leaving AMA: she will likely not survive if she continues to leave AMA. Infective tricuspid valve endocarditis Moderate tricuspid valve regurgitation Mixed septic and cardiogenic shock secondary to infective endocarditis- resolving. Sinus tachycardia Bedside echo shows large tricuspid regurgitation with moderate to severe TR With noncompliance and multiple AMA discharges, Not a candidate for valve replacement until she can complete antibiotic therapy and demonstrate medical compliance by not leaving AMA. ID recommends IV Ancef for MSSA, with end date 08/14, can be done as outpatient w/ HD End-stage renal disease -Patient came with outside hospital dialysis access in place. -Perm cath in place nephrology following, appreciate assistance -Continue renal diet with fluid restriction 1.5L -Nephrology following, trying to obtain review outside medical records so that she can be eventually approved for routine dialysis Suspected CHF exacerbation tricuspid regurgitation. Seen on outside echo BNP above 5000 (07/21), obviously affected by renal failure. Ascites is likely secondary CHF. Ascites Secondary to severe renal injury and suspected CHF Paracentesis 07/17 with 2.1L removed s/p paracentesis today 2.8 L. IV drug dependence prn oxycodone to prevent withdraws GI Prophylaxis pepcid DVT Prophylaxis - SCDs/Heparin subcutaneous. CM working on proceeding with disability process. Needs Dx of chronic/ESRD to arrange for transitional HD which nephrology is pursuing.
--- NOTE | 2018-08-10 15:35 | US ---
EXAM DATE: 08/10/2018 12:00 AM EDT AGE/SEX: 28 years / Female INDICATIONS: Ascites. CLINICAL DATA: This is the patient's subsequent encounter. Patient reports that signs and symptoms h ave been present for 1 month and indicates a pain score of 5/10. MEDICAL/SURGICAL HISTORY: . Asthma. Cholecystitis. Endocarditis. Ascites. Dialysis. . Paracent esis. Tooth extraction. Hemodialysis. COMPARISON: [facility] [place], US ABDOMEN LOWER LIMITED, 08/08/2018. . FLUID: Total volume of 2800 cc of clear, green fluid was removed. Fluid was discarded. Paracentesis was ther apeutic only. . . TECHNIQUE: Ultrasound guidance for abdominal paracentesis. Paracentesis. The risks, benefits, and alternatives to ultrasound guided paracentesis were explained to the patient in detail including the risk of bleeding and infection. Written and verbal informed consent was obt ained. With the patient on the ultrasound table, ultrasound imaging was used to select the most appropriate approach for paracentesis. Overlying skin was prepped and draped in the usual sterile fashion and wi th a local anesthetic, a dermatotomy was made with an 11 blade scalpel. A 6 [place] [id number] ca theter was introduced into the peritoneal cavity and fluid was collected. Post procedure scanning reveals no hematoma or other complication. The patient tolerated the procedu re well and left the ultrasound suite in stable condition. FINDINGS: Adequate fluid is present for paracentesis CONCLUSION: 1. Uncomplicated paracentesis Electronically signed by: José Manuel Nicholson MD 08/10/2018 3:34 PM EDT
[2018-08-11] MEDS: Heparin - SQ 10,000 UNITS/ML Vial SQ SCH ×3 (07:22→22:40)
[2018-08-11] MEDS: ceFAZolin 2 GM Premix Inj 2 GM/50 ML PIGGYBACK IV.SIG SCH (09:22)
[2018-08-11] MEDS: Furosemide 40 MG Tablet PO SCH (09:23)
[2018-08-11] MEDS: FLUoxetine 10 MG Capsule PO SCH (09:23)
[2018-08-11] MEDS: Famotidine 20 MG Tablet PO SCH ×2 (09:23→20:40)
[2018-08-11] MEDS: Calcium Acetate 667 MG Capsule PO SCH ×3 (09:23→17:29)
[2018-08-11] MEDS: Polyethylene Glycol 3350 17 GM Packet PO SCH ×2 (09:25→20:41)
[2018-08-11] MEDS: Senna/Docusate Sodium 8.6/50 MG Tablet PO SCH ×2 (09:25→20:41)
--- NOTE | 2018-08-11 15:02 | P.PNNP ---
Subjective Interval history: Seen in AM. Sitting up in chair. S/p paracentesis and hemodialysis yesterday. <Debbie Godinez - Last Filed: 08/11/18 14:57> Physical Exam Vital signs: Vital Signs 08/10/18 16:00 08/10/18 19:30 08/10/18 20:00 Temperature 97.7 F 98.4 F Pulse Rate 75 116 H Respiratory Rate 18 4 L 20 Blood Pressure 126/84 127/92 H Pulse Oximetry 91 L 98 08/10/18 22:04 08/11/18 00:00 08/11/18 11:55 Temperature 98.6 F 97.7 F Pulse Rate 112 H 108 H Respiratory Rate 20 17 Blood Pressure 124/82 113/73 Pulse Oximetry 93 L 96 100 Intake & Output 08/10/18 08/11/18 08/11/18 18:59 06:59 18:59 Intake Total 1010 / 1010 0 / 0 Output Total 3500 / 3500 Balance -2490 / -2490 0 / 0 Weight 57.4 kg Intake: IV 50 / 50 0 / 0 Ancef 2 GM Premix Inj 2 gm In 50 / 50 0 / 0 50 ml @ 100 mls/hr IV.SIG DAILY SERGE Rx#:[id number] Oral 960 / 960 Output: Urine 500 / 500 Hemodialysis Amount 3000 / 3000 Other: # Voids 2 Date of Last Bowel Movement 08/11/18 Narrative: GENERAL: Alert and oriented. SKIN: Warm and dry. Right IJ Perm cath. HEAD: Normocephalic. EYES: No scleral icterus. No injection or drainage. NECK: Supple, trachea midline. No JVD. CARDIOVASCULAR: Tachycardic. Murmur. RESPIRATORY: Breath sounds equal bilaterally. No accessory muscle use. GASTROINTESTINAL: Abdomen distended. Positive bowel sounds. MUSCULOSKELETAL: No cyanosis, or edema. BACK: Nontender without obvious deformity. <Debbie Godinez - Last Filed: 08/11/18 14:57> Vital signs: Vital Signs 08/15/18 20:00 08/16/18 00:00 08/16/18 08:00 Temperature 98 F 97.2 F L 97.9 F Pulse Rate 99 H 97 H 99 H Respiratory Rate 17 17 18 Blood Pressure 114/63 126/83 118/86 Pulse Oximetry 95 95 90 L 08/16/18 08:50 10/16/18 12:00 08/16/18 16:00 Temperature 97.7 F 97.9 F Pulse Rate 101 H 100 H Respiratory Rate 17 18 Blood Pressure 120/80 107/78 Pulse Oximetry 94 L 91 L 92 L Intake & Output 08/15/18 08/16/18 08/16/18 18:59 06:59 18:59 Intake Total 550 / 550 480 / 480 Output Total 2300 / 2300 Balance -1750 / -1750 480 / 480 Weight 56 kg Intake: IV 50 / 50 Ancef 2 GM Premix Inj 2 gm In 50 / 50 50 ml @ 100 mls/hr IV.SIG DAILY SERGE Rx#:[id number] Oral 500 / 500 480 / 480 Output: Urine 300 / 300 Hemodialysis Amount 1999 Other: # Voids 1 Date of Last Bowel Movement 08/13/18 08/15/18 08/16/18 <Bhargav Monge - Last Filed: 08/16/18 17:17> Assessment and Plan - Assessment (1) Acute kidney injury Code(s): N17.9 - Acute kidney failure, unspecified Status: Acute Plan: Acute kidney injury requiring hemodialysis per patient started hemodialysis at the end of May Patient has sepsis with hx of IVDA, developed TED possibly from glomerulonephritis/septic emboli Creatinine was noted to 0.81 on May 04, 2018 Hemodialysis started at [facility] on June 26. Hemodialysis Wednesday, Wednesday, and Wednesday Plan Avoid nephrotoxins including IV contrast and gadolinium. Epogen with dialysis Continue renal diet and fluid restriction. Continue Lasix daily, Maintain strict I+0's Continue phoslo Hemodialysis yesterday with removal of 3 liters of fluid S/P paracentesis yesterday tolerated well with removal of 2.8 liters of fluid yesterday Hemodialysis planned for tomorrow Labs in AM Outpatient hemodialysis still to be arranged, not ESRD yet. (2) Endocarditis Code(s): I38 - Endocarditis, valve unspecified Status: Acute Plan: On Ancef 2 grams with stop date on 08/14 (3) Hyperkalemia Code(s): E87.5 - Hyperkalemia Status: Acute Plan: Resolved <Debbie Godinez - Last Filed: 08/11/18 14:57> - Assessment (1) Acute kidney injury Code(s): N17.9 - Acute kidney failure, unspecified Status: Acute Plan: Patient seen and examined, agree with above. HD to continue as schedule. Patient has TED, and on HD for less than 3 months. (2) Endocarditis Code(s): I38 - Endocarditis, valve unspecified Status: Acute Qualifiers: Endocarditis type: infective Infective endocarditis organism: bacterial Chronicity: acute Qualified Code(s): I33.0 - Acute and subacute infective endocarditis (3) Hyperkalemia Code(s): E87.5 - Hyperkalemia Status: Acute <Bhargav Monge - Last Filed: 08/16/18 17:17>
--- NOTE | 2018-08-11 15:10 | P.PN ---
Subjective Interval history: Nursing denies any deterioration since last night. Nursing reports the patient is refusing another IV stick to gain access. Physical Exam Vital signs: Vital Signs 08/10/18 16:00 08/10/18 19:30 08/10/18 20:00 Temperature 97.7 F 98.4 F Pulse Rate 75 116 H Respiratory Rate 18 4 L 20 Blood Pressure 126/84 127/92 H Pulse Oximetry 91 L 98 08/10/18 22:04 08/11/18 00:00 08/11/18 11:55 Temperature 98.6 F 97.7 F Pulse Rate 112 H 108 H Respiratory Rate 20 17 Blood Pressure 124/82 113/73 Pulse Oximetry 93 L 96 100 Intake & Output 08/10/18 08/11/18 08/11/18 18:59 06:59 18:59 Intake Total 1010 / 1010 0 / 0 Output Total 3500 / 3500 Balance -2490 / -2490 0 / 0 Weight 57.4 kg Intake: IV 50 / 50 0 / 0 Ancef 2 GM Premix Inj 2 gm In 50 / 50 0 / 0 50 ml @ 100 mls/hr IV.SIG DAILY SERGE Rx#:[id number] Oral 960 / 960 Output: Urine 500 / 500 Hemodialysis Amount 3000 / 3000 Other: # Voids 2 Date of Last Bowel Movement 08/11/18 Narrative: Clear lungs bilaterally, unlabored breathing Slightly tachycardic, regular rhythm Abdomen is mildly distended today, soft Results - Labs CBC & Chem 7: 08/10/18 06:20 08/09/18 08:27 - Imaging Impressions Paracentesis Ultrasound 08/10/18 00:00 CONCLUSION: 1. Uncomplicated paracentesis - Procedures 07/14 paracentesis Perm cath Assessment and Plan - Plan 28-year-old female with infective tricuspid valve endocarditis and multiorgan dysfunction secondary to endocarditis. remains in heart failure and volume overload, and associated organ failure, including severe renal failure requiring renal replacement therapy. continue to daily pull fluid by HD. Broad spectrum abx. overall prognosis is quite poor given history of leaving AMA: she will likely not survive if she continues to leave AMA. Infective tricuspid valve endocarditis Moderate tricuspid valve regurgitation Mixed septic and cardiogenic shock secondary to infective endocarditis- resolving. Sinus tachycardia Bedside echo shows large tricuspid regurgitation with moderate to severe TR With noncompliance and multiple AMA discharges, Not a candidate for valve replacement until she can complete antibiotic therapy and demonstrate medical compliance by not leaving AMA. ID recommends IV Ancef for MSSA, with end date 08/14, can be done as outpatient w/ HD End-stage renal disease -Patient came with outside hospital dialysis access in place. -Perm cath in place nephrology following, appreciate assistance -Continue renal diet with fluid restriction 1.5L -Nephrology following, trying to obtain review outside medical records so that she can be eventually approved for routine dialysis Suspected CHF exacerbation tricuspid regurgitation. Seen on outside echo BNP above 5000 (07/21), obviously affected by renal failure. Ascites is likely secondary CHF. Ascites Secondary to severe renal injury and suspected CHF Paracentesis 07/17 with 2.1L removed paracentesis 08/11 with 2.8 L. IV drug dependence prn oxycodone to prevent withdraws GI Prophylaxis pepcid DVT Prophylaxis - SCDs/Heparin subcutaneous. CM working on proceeding with disability process. Needs Dx of chronic/ESRD to arrange for transitional HD which nephrology is pursuing.
[2018-08-12] MEDS: Heparin - SQ 10,000 UNITS/ML Vial SQ SCH ×3 (06:46→21:25)
[2018-08-12 07:16] LABS: Albumin 2.1 g/dL (3.4-5.0); Carbon Dioxide 14.8 meq/L (21.0-32.0); Phosphorus 3.2 mg/dL (2.5-4.9); Potassium 6.3 meq/L (3.5-5.1)
[2018-08-12] MEDS: ceFAZolin 2 GM Premix Inj 2 GM/50 ML PIGGYBACK IV.SIG SCH (08:39)
[2018-08-12] MEDS: Famotidine 20 MG Tablet PO SCH ×2 (08:42→20:55)
[2018-08-12] MEDS: Polyethylene Glycol 3350 17 GM Packet PO SCH ×2 (08:42→20:55)
[2018-08-12] MEDS: Senna/Docusate Sodium 8.6/50 MG Tablet PO SCH ×2 (08:42→20:56)
[2018-08-12] MEDS: Furosemide 40 MG Tablet PO SCH (08:42)
[2018-08-12] MEDS: FLUoxetine 10 MG Capsule PO SCH (08:43)
[2018-08-12] MEDS: Calcium Acetate 667 MG Capsule PO SCH ×3 (08:43→17:44)
--- NOTE | 2018-08-12 10:07 | P.PNNP ---
Subjective Interval history: Seen in room. Hemodialysis planned for today. Creatinine remains elevated at 4.69. Hyperkalemic today at 6.3, family has been bringing in food from outside which is contributing to hyperkalemia. <Debbie Godinez - Last Filed: 08/12/18 09:58> Physical Exam Vital signs: Vital Signs 08/11/18 11:55 08/11/18 16:00 08/12/18 00:00 Temperature 97.7 F 97.6 F 98.5 F Pulse Rate 108 H 110 H 72 Respiratory Rate 17 19 22 Blood Pressure 113/73 122/90 129/85 Pulse Oximetry 100 100 94 L 08/12/18 00:14 08/12/18 00:15 08/12/18 08:00 Temperature 97.7 F Pulse Rate 72 99 H Respiratory Rate 25 H 18 Blood Pressure 104/79 Pulse Oximetry 94 L 92 L 08/12/18 08:58 Temperature Pulse Rate 80 Respiratory Rate 20 Blood Pressure Pulse Oximetry Intake & Output 08/11/18 08/12/18 08/12/18 18:59 06:59 18:59 Intake Total 900 / 900 480 / 480 Balance 900 / 900 480 / 480 Weight 57.4 kg Intake: IV 0 / 0 Ancef 2 GM Premix Inj 2 gm In 0 / 0 50 ml @ 100 mls/hr IV.SIG DAILY SERGE Rx#:[id number] Oral 900 / 900 480 / 480 Other: # Voids 0 2 Date of Last Bowel Movement 08/11/18 08/11/18 # Bowel Movements 1 Narrative: GENERAL: Alert and oriented. SKIN: Warm and dry. Right IJ Perm cath. NECK: Supple, trachea midline. No JVD. CARDIOVASCULAR: Tachycardic. Murmur. RESPIRATORY: Breath sounds equal bilaterally. No accessory muscle use. GASTROINTESTINAL: Abdomen distended. Positive bowel sounds. MUSCULOSKELETAL: No cyanosis, or edema. BACK: Nontender without obvious deformity. <Debbie Godinez - Last Filed: 08/12/18 09:58> Vital signs: Vital Signs 08/15/18 20:00 08/16/18 00:00 08/16/18 08:00 Temperature 98 F 97.2 F L 97.9 F Pulse Rate 99 H 97 H 99 H Respiratory Rate 17 17 18 Blood Pressure 114/63 126/83 118/86 Pulse Oximetry 95 95 90 L 08/16/18 08:50 08/16/18 12:00 08/16/18 16:00 Temperature 97.7 F 97.9 F Pulse Rate 101 H 100 H Respiratory Rate 17 18 Blood Pressure 120/80 107/78 Pulse Oximetry 94 L 91 L 92 L Intake & Output 08/15/18 08/16/18 08/16/18 18:59 06:59 18:59 Intake Total 550 / 550 480 / 480 Output Total 2300 / 2300 Balance -1750 / -1750 480 / 480 Weight 56 kg Intake: IV 50 / 50 Ancef 2 GM Premix Inj 2 gm In 50 / 50 50 ml @ 100 mls/hr IV.SIG DAILY SERGE Rx#:[id number] Oral 500 / 500 480 / 480 Output: Urine 300 / 300 Hemodialysis Amount 1999 Other: # Voids 1 Date of Last Bowel Movement 08/13/18 08/15/18 08/16/18 <Bhargav Monge - Last Filed: 08/16/18 17:31> Assessment and Plan - Assessment (1) Acute kidney injury Code(s): N17.9 - Acute kidney failure, unspecified Status: Acute Plan: Acute kidney injury requiring hemodialysis per patient started hemodialysis at the end of May Patient has sepsis with hx of IVDA, developed 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 Hemodialysis Wednesday, Wednesday, and Wednesday Plan Avoid nephrotoxins including IV contrast and gadolinium. Epogen with dialysis Continue renal diet, low potassium, and fluid restriction. Maintain strict I+0's Continue phoslo Metabolic acidosis with HCO3 at 14.8, will add sodium bicarbonate BID. Potassium level at 6.3, will give one dose of Veltassa, dialysis will be done today closer to 1. Hemodialysis planned for today will use 1 K for bath with hyperkalemia Outpatient hemodialysis still to be arranged, not ESRD yet. (2) Endocarditis Code(s): I38 - Endocarditis, valve unspecified Status: Acute Plan: On Ancef 2 grams with stop date on 08/14 (3) Hyperkalemia Code(s): E87.5 - Hyperkalemia Status: Acute Plan: Veltassa X1 Hemodialysis today. <Debbie Godinez - Last Filed: 08/12/18 09:58> - Assessment (1) Acute kidney injury Code(s): N17.9 - Acute kidney failure, unspecified Status: Acute Plan: Patient seen and examined, agree with above. Creatinine is still elevated. Continue HD, watch for renal recovery. (2) Endocarditis Code(s): I38 - Endocarditis, valve unspecified Status: Acute Qualifiers: Endocarditis type: infective Infective endocarditis organism: bacterial Chronicity: acute Qualified Code(s): I33.0 - Acute and subacute infective endocarditis (3) Hyperkalemia Code(s): E87.5 - Hyperkalemia Status: Acute <Bhargav Monge - Last Filed: 08/16/18 17:31>
--- NOTE | 2018-08-12 13:22 | P.PN ---
Subjective Interval history: Nursing denies any deterioration since last night. Patient states she does not like being woken up cannot despite her being woken up to be taken to dialysis. Physical Exam Vital signs: Vital Signs 08/11/18 16:00 08/12/18 00:00 08/12/18 00:14 Temperature 97.6 F 98.5 F Pulse Rate 110 H 72 72 Respiratory Rate 19 22 25 H Blood Pressure 122/90 129/85 Pulse Oximetry 100 94 L 08/12/18 00:15 08/12/18 08:00 08/12/18 08:58 Temperature 97.7 F Pulse Rate 99 H 80 Respiratory Rate 18 20 Blood Pressure 104/79 Pulse Oximetry 94 L 92 L 08/12/18 09:10 Temperature Pulse Rate Respiratory Rate 18 Blood Pressure Pulse Oximetry Intake & Output 08/11/18 08/12/18 08/12/18 18:59 06:59 18:59 Intake Total 900 / 900 480 / 480 Balance 900 / 900 480 / 480 Weight 57.4 kg Intake: IV 0 / 0 Ancef 2 GM Premix Inj 2 gm In 0 / 0 50 ml @ 100 mls/hr IV.SIG DAILY SERGE Rx#:[id number] Oral 900 / 900 480 / 480 Other: # Voids 0 2 Date of Last Bowel Movement 08/11/18 08/11/18 # Bowel Movements 1 Narrative: Heart sounds regular rate rhythm Clear lungs bilaterally, unlabored breathing Results - Labs CBC & Chem 7: 08/10/18 06:20 08/12/18 05:32 Laboratory Results - last 24 hr 08/12/18 05:32 Sodium 130 L Potassium 6.3 H Chloride 94 L Carbon Dioxide 14.8 L Anion Gap 21 H BUN 49 H Creatinine 4.69 H Estimated GFR 11 L Random Glucose 69 L Calcium 9.0 Phosphorus 3.2 Albumin 2.1 L - Procedures 07/14 paracentesis Perm cath Assessment and Plan - Plan 28-year-old female with infective tricuspid valve endocarditis and multiorgan dysfunction secondary to endocarditis. remains in heart failure and volume overload, and associated organ failure, including severe renal failure requiring renal replacement therapy. continue to daily pull fluid by HD. Broad spectrum abx. overall prognosis is quite poor given history of leaving AMA: she will likely not survive if she continues to leave AMA. 08/13: Awaiting arrangements for outpatient dialysis. Infective tricuspid valve endocarditis Moderate tricuspid valve regurgitation Mixed septic and cardiogenic shock secondary to infective endocarditis- resolving. Sinus tachycardia Bedside echo shows large tricuspid regurgitation with moderate to severe TR With noncompliance and multiple AMA discharges, Not a candidate for valve replacement until she can complete antibiotic therapy and demonstrate medical compliance by not leaving AMA. ID recommends IV Ancef for MSSA, with end date 08/14, can be done as outpatient w/ HD End-stage renal disease -Patient came with outside hospital dialysis access in place. -Perm cath in place nephrology following, appreciate assistance -Continue renal diet with fluid restriction 1.5L -Nephrology following, trying to obtain review outside medical records so that she can be eventually approved for routine dialysis Suspected CHF exacerbation tricuspid regurgitation. Seen on outside echo BNP above 5000 (07/21), obviously affected by renal failure. Ascites is likely secondary CHF. Ascites Secondary to severe renal injury and suspected CHF Paracentesis 07/17 with 2.1L removed paracentesis 08/11 with 2.8 L. IV drug dependence prn oxycodone to prevent withdraws GI Prophylaxis pepcid DVT Prophylaxis - SCDs/Heparin subcutaneous. CM working on proceeding with disability process. Needs Dx of chronic/ESRD to arrange for transitional HD which nephrology is pursuing.
[2018-08-12] MEDS: Sodium Bicarbonate 650 MG Tablet PO SCH (20:55)
[2018-08-13] MEDS: Acetaminophen 325 MG Tablet PO PRN (00:45)
[2018-08-13] MEDS: Heparin - SQ 10,000 UNITS/ML Vial SQ SCH ×3 (05:18→21:07)
[2018-08-13] MEDS: FLUoxetine 10 MG Capsule PO SCH (10:42)
[2018-08-13] MEDS: Senna/Docusate Sodium 8.6/50 MG Tablet PO SCH ×2 (10:42→21:07)
[2018-08-13] MEDS: Polyethylene Glycol 3350 17 GM Packet PO SCH ×2 (10:42→21:07)
[2018-08-13] MEDS: Furosemide 40 MG Tablet PO SCH (10:42)
[2018-08-13] MEDS: Famotidine 20 MG Tablet PO SCH ×2 (10:43→21:06)
[2018-08-13] MEDS: Sodium Bicarbonate 650 MG Tablet PO SCH ×2 (10:43→21:06)
[2018-08-13] MEDS: Calcium Acetate 667 MG Capsule PO SCH ×3 (10:43→19:47)
[2018-08-13] MEDS: ceFAZolin 2 GM Premix Inj 2 GM/50 ML PIGGYBACK IV.SIG SCH (10:45)
--- NOTE | 2018-08-13 11:06 | P.PNNP ---
Subjective Interval history: Patient is sleepy, not eating well, has nausea, no SOB, on room air. Physical Exam Vital signs: Vital Signs 08/12/18 16:00 08/12/18 20:00 08/13/18 00:00 Temperature 98.0 F 98.7 F 101.2 F H Pulse Rate 119 H 124 H 137 H Respiratory Rate 18 16 16 Blood Pressure 106/66 106/70 112/82 Pulse Oximetry 90 L 94 L 87 L 08/13/18 01:08 08/13/18 02:32 08/13/18 04:00 Temperature 99 F 99.2 F Pulse Rate 130 H 125 H 110 H Respiratory Rate 20 20 16 Blood Pressure 86/54 L Pulse Oximetry 95 94 L 08/13/18 05:38 08/13/18 08:34 Temperature Pulse Rate 113 H Respiratory Rate 16 20 Blood Pressure 97/62 L Pulse Oximetry 95 94 L Intake & Output 08/12/18 08/13/18 08/13/18 18:59 06:59 18:59 Intake Total 950 / 950 360 / 360 Output Total 1999 Balance -1050 / -1050 360 / 360 Weight 56 kg Intake: IV 50 / 50 Ancef 2 GM Premix Inj 2 gm In 50 / 50 50 ml @ 100 mls/hr IV.SIG DAILY SERGE Rx#:[id number] Oral 900 / 900 360 / 360 Output: Hemodialysis Amount 1999 Other: # Voids 2 1 # Bowel Movements 2 Narrative: Patient is sleepy, not in distress. HEENT: KAJAL, Non icteric sclera, Conjunctiva pale. Neck: Supple, JVD is elevated. Heart sounds regular rate rhythm Clear lungs bilaterally, unlabored breathing. Abd. distended, non tender, mild leg edema. Assessment and Plan - Assessment (1) Acute kidney injury Code(s): N17.9 - Acute kidney failure, unspecified Status: Acute Plan: Patient has TED, Non oliguric, K was elevated yesterday, HD was done yesterday. Follow the BMP and watch for renal recovery. HD to continue MWF and as needed. Check BMP in AM. (2) Endocarditis Code(s): I38 - Endocarditis, valve unspecified Status: Acute Plan: On Ancef 2 grams with stop date on 08/14 (3) Hyperkalemia Code(s): E87.5 - Hyperkalemia Status: Acute Plan: Veltassa X1 Hemodialysis today.
--- NOTE | 2018-08-13 14:55 | P.PN ---
Subjective Interval history: Nursing denies any deterioration since last night. Patient herself says she is very thirsty and wants a "giant drink". She denies she is hurting anywhere despite her wincing. She denies suicidal ideation or any depressive feelings. Physical Exam Vital signs: Vital Signs 08/12/18 16:00 08/12/18 20:00 08/13/18 00:00 Temperature 98.0 F 98.7 F 101.2 F H Pulse Rate 119 H 124 H 137 H Respiratory Rate 18 16 16 Blood Pressure 106/66 106/70 112/82 Pulse Oximetry 90 L 94 L 87 L 08/13/18 01:08 08/13/18 02:32 08/13/18 04:00 Temperature 99 F 99.2 F Pulse Rate 130 H 125 H 110 H Respiratory Rate 20 20 16 Blood Pressure 86/54 L Pulse Oximetry 95 94 L 08/13/18 05:38 08/13/18 08:34 08/13/18 12:00 Temperature 97.6 F Pulse Rate 113 H 94 H Respiratory Rate 16 20 18 Blood Pressure 97/62 L 106/78 Pulse Oximetry 95 94 L 95 Intake & Output 08/12/18 08/13/18 08/13/18 18:59 06:59 18:59 Intake Total 950 / 950 360 / 360 Output Total 1999 Balance -1050 / -1050 360 / 360 Weight 56 kg Intake: IV 50 / 50 Ancef 2 GM Premix Inj 2 gm In 50 / 50 50 ml @ 100 mls/hr IV.SIG DAILY SERGE Rx#:[id number] Oral 900 / 900 360 / 360 Output: Hemodialysis Amount 1999 Other: # Voids 2 1 # Bowel Movements 2 Narrative: Lying in bed, no acute distress but appears to be wincing Unlabored breathing Results - Labs CBC & Chem 7: 08/10/18 06:20 08/12/18 05:32 - Procedures 07/14 paracentesis Perm cath Assessment and Plan - Plan 28-year-old female with infective tricuspid valve endocarditis and multiorgan dysfunction secondary to endocarditis. remains in heart failure and volume overload, and associated organ failure, including severe renal failure requiring renal replacement therapy. continue to daily pull fluid by HD. Broad spectrum abx. overall prognosis is quite poor given history of leaving AMA: she will likely not survive if she continues to leave AMA. 08/13: Awaiting arrangements for outpatient dialysis. Antibiotic regimen to be completed for tomorrow. Infective tricuspid valve endocarditis Moderate tricuspid valve regurgitation Mixed septic and cardiogenic shock secondary to infective endocarditis- resolving. Sinus tachycardia Bedside echo shows large tricuspid regurgitation with moderate to severe TR With noncompliance and multiple AMA discharges, Not a candidate for valve replacement until she can complete antibiotic therapy and demonstrate medical compliance by not leaving AMA. ID recommends IV Ancef for MSSA, with end date 08/14, can be done as outpatient w/ HD End-stage renal disease -Patient came with outside hospital dialysis access in place. -Perm cath in place nephrology following, appreciate assistance -Continue renal diet with fluid restriction 1.5L -Nephrology following, trying to obtain review outside medical records so that she can be eventually approved for routine dialysis Suspected CHF exacerbation tricuspid regurgitation. Seen on outside echo BNP above 5000 (07/21), obviously affected by renal failure. Ascites is likely secondary CHF. Ascites Secondary to severe renal injury and suspected CHF Paracentesis 07/17 with 2.1L removed paracentesis 08/11 with 2.8 L. IV drug dependence prn oxycodone to prevent withdraws GI Prophylaxis pepcid DVT Prophylaxis - SCDs/Heparin subcutaneous. CM working on proceeding with disability process. Needs Dx of chronic/ESRD to arrange for transitional HD which nephrology is pursuing.
[2018-08-14] MEDS: Heparin - SQ 10,000 UNITS/ML Vial SQ SCH ×3 (05:00→21:27)
[2018-08-14 06:11] LABS: Calcium 7.7 mg/dL (8.5-10.1); Carbon Dioxide 20.4 meq/L (21.0-32.0); Potassium 4.8 meq/L (3.5-5.1)
--- NOTE | 2018-08-14 09:10 | P.PNNP ---
Subjective Interval history: Patient is sleepy, no SOB, has mild abd. discomfort. Physical Exam Vital signs: Vital Signs 08/13/18 12:00 08/13/18 16:00 08/13/18 19:47 Temperature 97.6 F 97.6 F Pulse Rate 94 H 109 H 101 H Respiratory Rate 18 18 16 Blood Pressure 106/78 102/64 Pulse Oximetry 95 88 L 94 L 08/13/18 20:00 08/13/18 20:11 08/13/18 23:58 Temperature 97.9 F 96.9 F L Pulse Rate 101 H 102 H Respiratory Rate 16 22 Blood Pressure 103/66 99/64 L Pulse Oximetry 93 L 93 L 95 08/14/18 08:00 Temperature 98.1 F Pulse Rate 93 H Respiratory Rate 18 Blood Pressure 94/62 L Pulse Oximetry 92 L Intake & Output 08/13/18 08/14/18 08/14/18 18:59 06:59 18:59 Intake Total 660 / 660 580 / 580 Balance 660 / 660 580 / 580 Weight 56 kg Intake: IV 50 / 50 Ancef 2 GM Premix Inj 2 gm In 50 / 50 50 ml @ 100 mls/hr IV.SIG DAILY SERGE Rx#:[id number] Oral 610 / 610 580 / 580 Other: # Voids 4 1 Date of Last Bowel Movement 08/13/18 # Bowel Movements 0 Narrative: Lying in bed, no acute distress but appears to be wincing Unlabored breathing Assessment and Plan - Assessment (1) Acute kidney injury Code(s): N17.9 - Acute kidney failure, unspecified Status: Acute Plan: Patient has TED, Non oliguric, Follow the BMP and watch for renal recovery. HD to continue MWF and as needed. K is normal now. HD to continue MWF.. (2) Endocarditis Code(s): I38 - Endocarditis, valve unspecified Status: Acute Plan: On Ancef 2 grams with stop date on 08/14 (3) Hyperkalemia Code(s): E87.5 - Hyperkalemia Status: Acute Plan: Veltassa X1 Hemodialysis today.
[2018-08-14] MEDS: Furosemide 40 MG Tablet PO SCH (10:37)
[2018-08-14] MEDS: FLUoxetine 10 MG Capsule PO SCH (10:37)
[2018-08-14] MEDS: Sodium Bicarbonate 650 MG Tablet PO SCH ×2 (10:37→21:37)
[2018-08-14] MEDS: Famotidine 20 MG Tablet PO SCH ×2 (10:37→21:37)
[2018-08-14] MEDS: Calcium Acetate 667 MG Capsule PO SCH ×3 (10:37→17:06)
[2018-08-14] MEDS: ceFAZolin 2 GM Premix Inj 2 GM/50 ML PIGGYBACK IV.SIG SCH (10:38)
[2018-08-14] MEDS: Senna/Docusate Sodium 8.6/50 MG Tablet PO SCH ×2 (10:38→21:27)
[2018-08-14] MEDS: Polyethylene Glycol 3350 17 GM Packet PO SCH ×2 (10:38→21:27)
--- NOTE | 2018-08-14 12:55 | P.PN ---
Subjective Interval history: Nursing denies any deterioration since last night. Vocalizes no new complaints. Physical Exam Vital signs: Vital Signs 08/13/18 16:00 08/13/18 19:47 08/13/18 20:00 Temperature 97.6 F Pulse Rate 109 H 101 H Respiratory Rate 18 16 Blood Pressure 102/64 Pulse Oximetry 88 L 94 L 93 L 08/13/18 20:11 08/13/18 23:58 08/14/18 08:00 Temperature 97.9 F 96.9 F L 98.1 F Pulse Rate 101 H 102 H 93 H Respiratory Rate 16 22 18 Blood Pressure 103/66 99/64 L 94/62 L Pulse Oximetry 93 L 95 92 L 08/14/18 12:16 Temperature Pulse Rate Respiratory Rate Blood Pressure Pulse Oximetry 92 L Intake & Output 08/13/18 08/14/18 08/14/18 18:59 06:59 18:59 Intake Total 660 / 660 580 / 580 50 / 50 Balance 660 / 660 580 / 580 50 / 50 Weight 56 kg Intake: IV 50 / 50 50 / 50 Ancef 2 GM Premix Inj 2 gm In 50 / 50 50 / 50 50 ml @ 100 mls/hr IV.SIG DAILY SERGE Rx#:[id number] Oral 610 / 610 580 / 580 Other: # Voids 4 1 Date of Last Bowel Movement 08/13/18 # Bowel Movements 0 Narrative: Clear lungs bilaterally, unlabored breathing Results - Labs CBC & Chem 7: 08/10/18 06:20 08/14/18 04:30 Laboratory Results - last 24 hr 08/14/18 04:30 Sodium 132 L Potassium 4.8 D Chloride 98 Carbon Dioxide 20.4 L Anion Gap 14 BUN 49 H Creatinine 4.23 H Estimated GFR 12 L Random Glucose 104 Calcium 7.7 L D - Procedures 07/14 paracentesis Perm cath Assessment and Plan - Plan 28-year-old female with infective tricuspid valve endocarditis and multiorgan dysfunction secondary to endocarditis. remains in heart failure and volume overload, and associated organ failure, including severe renal failure requiring renal replacement therapy. continue to daily pull fluid by HD. Broad spectrum abx. overall prognosis is quite poor given history of leaving AMA: she will likely not survive if she continues to leave AMA. 08/14: Awaiting arrangements for outpatient dialysis. Antibiotic regimen being completed today Infective tricuspid valve endocarditis Moderate tricuspid valve regurgitation Mixed septic and cardiogenic shock secondary to infective endocarditis- resolving. Sinus tachycardia Bedside echo shows large tricuspid regurgitation with moderate to severe TR With noncompliance and multiple AMA discharges, Not a candidate for valve replacement until she can complete antibiotic therapy and demonstrate medical compliance by not leaving AMA. Per ID patient is completing Ancef regimen for MSSA today. End-stage renal disease -Patient came with outside hospital dialysis access in place. -Perm cath in place nephrology following, appreciate assistance -Continue renal diet with fluid restriction 1.5L -Nephrology following, trying to obtain review outside medical records so that she can be eventually approved for routine dialysis Suspected CHF exacerbation tricuspid regurgitation. Seen on outside echo BNP above 5000 (07/21), obviously affected by renal failure. Ascites is likely secondary CHF. Ascites Secondary to severe renal injury and suspected CHF Paracentesis 07/17 with 2.1L removed paracentesis 08/11 with 2.8 L. IV drug dependence prn oxycodone to prevent withdraws GI Prophylaxis pepcid DVT Prophylaxis - SCDs/Heparin subcutaneous. CM working on proceeding with disability process. Needs Dx of chronic/ESRD to arrange for transitional HD which nephrology is pursuing.
[2018-08-15] MEDS: Heparin - SQ 10,000 UNITS/ML Vial SQ SCH ×3 (06:13→23:24)
--- NOTE | 2018-08-15 11:05 | P.PNNP ---
Subjective Interval history: Seen during hemodialysis. Upset because she did not get breakfast. <Debbie Godinez - Last Filed: 08/15/18 11:00> Physical Exam Vital signs: Vital Signs 08/14/18 12:00 08/14/18 12:16 08/14/18 16:00 Temperature 97.2 F L 97.6 F Pulse Rate 90 97 H Respiratory Rate 18 17 Blood Pressure 106/77 108/60 Pulse Oximetry 92 L 92 L 90 L 08/14/18 20:00 08/15/18 00:00 08/15/18 04:00 Temperature 97.3 F L 97.1 F L Pulse Rate 89 97 H Respiratory Rate 18 17 18 Blood Pressure 106/81 100/74 Pulse Oximetry 93 L 93 L Intake & Output 08/14/18 08/15/18 08/15/18 18:59 06:59 18:59 Intake Total 50 / 50 460 / 460 Output Total 600 / 600 Balance 50 / 50 -140 / -140 Weight 56 kg Intake: IV 50 / 50 Ancef 2 GM Premix Inj 2 gm In 50 / 50 50 ml @ 100 mls/hr IV.SIG DAILY SERGE Rx#:[id number] Oral 460 / 460 Output: Urine 600 / 600 Other: Date of Last Bowel Movement 08/13/18 # Bowel Movements 1 Narrative: GENERAL: Alert and oriented. SKIN: Warm and dry. Right IJ Perm cath. NECK: Supple, trachea midline. No JVD. CARDIOVASCULAR: Tachycardic. Murmur. RESPIRATORY: Breath sounds equal bilaterally. No accessory muscle use. GASTROINTESTINAL: Abdomen distended. Positive bowel sounds. MUSCULOSKELETAL: No cyanosis, or edema. BACK: Nontender without obvious deformity. <Debbie Godinez - Last Filed: 08/15/18 11:00> Vital signs: Vital Signs 08/18/18 00:00 08/18/18 08:00 08/18/18 08:01 Temperature 97.8 F 98.1 F Pulse Rate 112 H 118 H Respiratory Rate 20 17 Blood Pressure 114/91 H 124/95 H Pulse Oximetry 96 94 L 98 08/18/18 09:03 08/18/18 12:00 08/18/18 12:25 Temperature 97.6 F Pulse Rate 105 H 121 H 118 H Respiratory Rate 15 17 15 Blood Pressure 123/82 Pulse Oximetry 95 08/18/18 16:00 08/18/18 16:15 08/18/18 20:00 Temperature 98.1 F 98.9 F Pulse Rate 125 H 101 H 115 H Respiratory Rate 17 15 16 Blood Pressure 131/88 122/87 Pulse Oximetry 94 L 94 L 08/18/18 20:10 Temperature Pulse Rate 100 H Respiratory Rate 18 Blood Pressure Pulse Oximetry 94 L Intake & Output 08/18/18 08/18/18 08/19/18 06:59 18:59 06:59 Intake Total 450 / 450 Balance 450 / 450 Weight 55.9 kg Intake: Oral 450 / 450 Other: # Voids 1 Date of Last Bowel Movement 08/16/18 <Bhargav Monge - Last Filed: 08/18/18 21:33> Assessment and Plan - Assessment (1) Acute kidney injury Code(s): N17.9 - Acute kidney failure, unspecified Status: Acute Plan: Acute kidney injury requiring hemodialysis Patient has sepsis with hx of IVDA, developed TED possibly from glomerulonephritis/septic emboli Creatinine was noted to 0.81 on May 04, 2018 Hemodialysis started at [facility] on June 26. Hemodialysis Wednesday, Wednesday, and Wednesday Plan Avoid nephrotoxins including IV contrast and gadolinium. Epogen with dialysis Continue renal diet and fluid restriction. Seen during hemodialysis will remove fluid as tolerated. Labs in AM Outpatient hemodialysis still to be arranged, not ESRD yet. (2) Endocarditis Code(s): I38 - Endocarditis, valve unspecified Status: Acute Plan: On Ancef 2 grams (3) Hyperkalemia Code(s): E87.5 - Hyperkalemia Status: Acute Plan: Labs in AM <Debbie Godinez - Last Filed: 08/15/18 11:00> - Assessment (1) Acute kidney injury Code(s): N17.9 - Acute kidney failure, unspecified Status: Acute Plan: Patient seen and examined, agree with above. No improvement in the renal function. Patient has TED, her Creatinine was normal in May 2018. (2) Endocarditis Code(s): I38 - Endocarditis, valve unspecified Status: Acute Qualifiers: Endocarditis type: infective Infective endocarditis organism: bacterial Chronicity: acute Qualified Code(s): I33.0 - Acute and subacute infective endocarditis (3) Hyperkalemia Code(s): E87.5 - Hyperkalemia Status: Acute <Bhargav Monge - Last Filed: 08/18/18 21:33>
[2018-08-15] MEDS: Calcium Acetate 667 MG Capsule PO SCH ×3 (14:27→17:15)
[2018-08-15] MEDS: Polyethylene Glycol 3350 17 GM Packet PO SCH ×2 (14:29→23:22)
[2018-08-15] MEDS: Sodium Bicarbonate 650 MG Tablet PO SCH ×2 (14:30→23:18)
[2018-08-15] MEDS: FLUoxetine 10 MG Capsule PO SCH (14:30)
[2018-08-15] MEDS: Furosemide 40 MG Tablet PO SCH (14:30)
[2018-08-15] MEDS: Famotidine 20 MG Tablet PO SCH ×2 (14:30→23:19)
[2018-08-15] MEDS: Senna/Docusate Sodium 8.6/50 MG Tablet PO SCH ×2 (14:31→23:18)
[2018-08-15] MEDS: ceFAZolin 2 GM Premix Inj 2 GM/50 ML PIGGYBACK IV.SIG SCH (14:31)
--- NOTE | 2018-08-15 14:31 | P.PN ---
Subjective Interval history: Nursing denies any deterioration since last night. Patient is asking me if I am bringing her desert. I told her i'm her doctor. Physical Exam Vital signs: Vital Signs 08/14/18 16:00 08/14/18 20:00 08/15/18 00:00 Temperature 97.6 F 97.3 F L 97.1 F L Pulse Rate 97 H 89 97 H Respiratory Rate 17 18 17 Blood Pressure 108/60 106/81 100/74 Pulse Oximetry 90 L 93 L 93 L 08/15/18 04:00 Temperature Pulse Rate Respiratory Rate 18 Blood Pressure Pulse Oximetry Intake & Output 08/14/18 08/15/18 08/15/18 18:59 06:59 18:59 Intake Total 50 / 50 460 / 460 Output Total 600 / 600 1999 Balance 50 / 50 -140 / -140 -1999 Weight 56 kg Intake: IV 50 / 50 Ancef 2 GM Premix Inj 2 gm In 50 / 50 50 ml @ 100 mls/hr IV.SIG DAILY SERGE Rx#:[id number] Oral 460 / 460 Output: Urine 600 / 600 Hemodialysis Amount 1999 Other: Date of Last Bowel Movement 08/13/18 # Bowel Movements 1 Narrative: clear lungs BL unlabored breathing eating Results - Labs CBC & Chem 7: 08/10/18 06:20 08/14/18 04:30 - Procedures 07/14 paracentesis Perm cath Assessment and Plan - Plan 28-year-old female with infective tricuspid valve endocarditis and multiorgan dysfunction secondary to endocarditis. remains in heart failure and volume overload, and associated organ failure, including severe renal failure requiring renal replacement therapy. continue to daily pull fluid by HD. Broad spectrum abx. overall prognosis is quite poor given history of leaving AMA: she will likely not survive if she continues to leave AMA. Competed treatment for urinary cisco. Completed ~6 week regimen of IV ancef for MSSA bacteremia on . 08/15: Awaiting arrangements for outpatient dialysis. Infective tricuspid valve endocarditis Moderate tricuspid valve regurgitation Mixed septic and cardiogenic shock secondary to infective endocarditis- resolving. Sinus tachycardia Bedside echo shows large tricuspid regurgitation with moderate to severe TR With noncompliance and multiple AMA discharges, Not a candidate for valve replacement until she can complete antibiotic therapy and demonstrate medical compliance by not leaving AMA. Per ID patient is completing Ancef regimen for MSSA today. End-stage renal disease -Patient came with outside hospital dialysis access in place. -Perm cath in place nephrology following, appreciate assistance -Continue renal diet with fluid restriction 1.5L -Nephrology following, trying to obtain review outside medical records so that she can be eventually approved for routine dialysis tricuspid regurgitation. Seen on outside echo BNP above 5000 (07/21), obviously affected by renal failure. Ascites is likely secondary CHF. Ascites Secondary to severe renal injury and suspected CHF Paracentesis 07/17 with 2.1L removed paracentesis 08/11 with 2.8 L. IV drug dependence prn oxycodone to prevent withdraws GI Prophylaxis pepcid DVT Prophylaxis - SCDs/Heparin subcutaneous. CM working on proceeding with disability process. Needs Dx of chronic/ESRD to arrange for transitional HD which nephrology is pursuing.
[2018-08-16] MEDS: Heparin - SQ 10,000 UNITS/ML Vial SQ SCH ×3 (05:23→21:17)
[2018-08-16 08:05] LABS: Baso # (Auto) 0.1 th/mm3 (0.0-0.2); Baso % (Auto) 0.9 % (0.0-2.0); Eos # (Auto) 0.1 th/mm3 (0.0-0.4); Eos % (Auto) 0.8 % (0.0-4.0); Hematocrit 41.9 % (35.0-46.0); Hemoglobin 12.7 gm/dL (11.6-15.3); Lymph # (Auto) 2.7 th/mm3 (1.0-4.8); Mean Corpuscular Hemoglobin 29.9 pg (27.0-34.0); Mean Corpuscular Volume 98.8 fL (80.0-100.0); Mean Platelet Volume 10.1 fL (7.0-11.0); Mono # (Auto) 0.8 th/mm3 (0.0-0.9); Mono % (Auto) 8.9 % (0.0-8.0); Neut # (Auto) 4.9 th/mm3 (1.8-7.7); Neut % (Auto) 57.4 % (16.0-70.0); Platelet Count 89 th/mm3 (150-450); Red Blood Count 4.24 mil/mm3 (4.00-5.30); White Blood Count 8.5 th/mm3 (4.0-11.0)
[2018-08-16 08:09] LABS: Mean Corpuscular HGB Conc 30.2 % (32.0-36.0)
[2018-08-16 08:24] LABS: Albumin 1.8 g/dL (3.4-5.0); Calcium 8.5 mg/dL (8.5-10.1); Carbon Dioxide 26.8 meq/L (21.0-32.0); Phosphorus 1.5 mg/dL (2.5-4.9); Potassium 4.5 meq/L (3.5-5.1)
[2018-08-16] MEDS: Sodium Bicarbonate 650 MG Tablet PO SCH ×2 (09:40→20:49)
[2018-08-16] MEDS: FLUoxetine 10 MG Capsule PO SCH (09:40)
[2018-08-16] MEDS: Furosemide 40 MG Tablet PO SCH (09:40)
[2018-08-16] MEDS: Famotidine 20 MG Tablet PO SCH ×2 (09:41→20:49)
[2018-08-16] MEDS: Calcium Acetate 667 MG Capsule PO SCH (09:41)
[2018-08-16] MEDS: ceFAZolin 2 GM Premix Inj 2 GM/50 ML PIGGYBACK IV.SIG SCH (09:41)
[2018-08-16] MEDS: Polyethylene Glycol 3350 17 GM Packet PO SCH ×2 (09:41→20:47)
[2018-08-16] MEDS: Senna/Docusate Sodium 8.6/50 MG Tablet PO SCH ×2 (09:41→20:47)
--- NOTE | 2018-08-16 14:01 | P.PN ---
Subjective Interval history: Follow up for endocarditis, ESRD: Patient seen and examined, flat affect. Childish in her behavior. Complains of pain all over, no chest pain, no shortness of breath. No fever. Physical Exam Vital signs: Vital Signs 08/15/18 16:00 08/15/18 20:00 08/16/18 00:00 Temperature 97.6 F 98 F 97.2 F L Pulse Rate 99 H 99 H 97 H Respiratory Rate 18 17 17 Blood Pressure 116/85 114/63 126/83 Pulse Oximetry 91 L 95 95 08/16/18 08:00 08/16/18 08:50 08/16/18 12:00 Temperature 97.9 F 97.7 F Pulse Rate 99 H 101 H Respiratory Rate 18 17 Blood Pressure 118/86 120/80 Pulse Oximetry 90 L 94 L 91 L Intake & Output 08/15/18 08/16/18 08/16/18 18:59 06:59 18:59 Intake Total 550 / 550 480 / 480 Output Total 2300 / 2300 Balance -1750 / -1750 480 / 480 Weight 56 kg Intake: IV 50 / 50 Ancef 2 GM Premix Inj 2 gm In 50 / 50 50 ml @ 100 mls/hr IV.SIG DAILY SERGE Rx#:[id number] Oral 500 / 500 480 / 480 Output: Urine 300 / 300 Hemodialysis Amount 1999 Other: # Voids 1 Date of Last Bowel Movement 08/13/18 08/15/18 08/16/18 Narrative: GENERAL: Thin built, chronically ill-appearing female. SKIN: Warm and dry. HEAD: Atraumatic. Normocephalic. EYES: Pupils equal and round. No scleral icterus. No injection or drainage. ENT: No nasal bleeding or discharge. Mucous membranes pink and moist. NECK: Trachea midline. No JVD. CARDIOVASCULAR: Regular rate and rhythm. RESPIRATORY: No accessory muscle use. Clear to auscultation. Breath sounds equal bilaterally. GASTROINTESTINAL: Abdomen distended. Normoactive BS x 3 MUSCULOSKELETAL: Extremities without clubbing, cyanosis, or edema. No obvious deformities. NEUROLOGICAL: Awake, alert oriented x3. No focal deficits. PSYCHIATRIC: Flat affect. Childish in her behavior Results - Labs CBC & Chem 7: 08/16/18 06:56 08/16/18 06:56 Laboratory Results - last 24 hr 08/16/18 08/16/18 06:56 06:56 WBC 8.5 RBC 4.24 Hgb 12.7 Hct 41.9 MCV 98.8 MCH 29.9 MCHC 30.2 L RDW 23.0 H Plt Count 89 L D MPV 10.1 Prelim Diff (Auto) Slide review pending Neut % (Auto) 57.4 Lymph % (Auto) 32.0 Butler % (Auto) 8.9 H Eos % (Auto) 0.8 Baso % (Auto) 0.9 Neut # (Auto) 4.9 Lymph # (Auto) 2.7 Butler # (Auto) 0.8 Eos # (Auto) 0.1 Baso # (Auto) 0.1 WBC Differential . Diff Scan Auto diff confirmed Differential Comment . Platelet Morphology Enlarged H Sodium 136 Potassium 4.5 Chloride 97 L Carbon Dioxide 26.8 Anion Gap 12 BUN 35 H Creatinine 3.34 H Estimated GFR 16 L Random Glucose 67 L Calcium 8.5 Phosphorus 1.5 L Albumin 1.8 L - Procedures 07/14 paracentesis Perm cath Assessment and Plan - Assessment (1) IV drug abuse Code(s): F19.10 - Other psychoactive substance abuse, uncomplicated Status: Acute (2) Endocarditis Code(s): I38 - Endocarditis, valve unspecified Status: Acute (3) Sepsis Code(s): A41.9 - Sepsis, unspecified organism Status: Resolved (4) End-stage renal disease (ESRD) Code(s): N18.6 - End stage renal disease Status: Acute (5) Ascites Code(s): R18.8 - Other ascites Status: Acute (6) Acute kidney injury Code(s): N17.9 - Acute kidney failure, unspecified Status: Acute - Plan 28-year-old female with infective tricuspid valve endocarditis and multiorgan dysfunction secondary to endocarditis. remains in heart failure and volume overload, and associated organ failure, including severe renal failure requiring renal replacement therapy. continue to daily pull fluid by HD. Broad spectrum abx. overall prognosis is quite poor given history of leaving AMA: she will likely not survive if she continues to leave AMA. Competed treatment for urinary cisco. Completed ~6 week regimen of IV ancef for MSSA bacteremia on . Infective tricuspid valve endocarditis Moderate tricuspid valve regurgitation Mixed septic and cardiogenic shock secondary to infective endocarditis- resolving. Sinus tachycardia Bedside echo shows large tricuspid regurgitation with moderate to severe TR With noncompliance and multiple AMA discharges, Not a candidate for valve replacement until she can complete antibiotic therapy and demonstrate medical compliance by not leaving AMA. -Per ID patient, completed Ancef for MSSA End-stage renal disease -Patient came with outside hospital dialysis access in place. -Perm cath in place, nephrology following, appreciate assistance -Continue renal diet with fluid restriction 1.5L -Nephrology following, trying to obtain review outside medical records so that she can be eventually approved for routine dialysis tricuspid regurgitation. Seen on outside echo BNP above 5000 (07/21), obviously affected by renal failure. Ascites is likely secondary CHF. -Continue Lasix 40 mg p.o. daily Ascites Secondary to severe renal injury and suspected CHF Paracentesis 07/17 with 2.1L removed paracentesis 08/11 with 2.8 L. -continue Lasix IV drug dependence -prn oxycodone to prevent withdrawal GI Prophylaxis-pepcid DVT Prophylaxis - SCDs/Heparin subcutaneous. CM working on proceeding with disability process. Needs Dx of chronic/ESRD to arrange for transitional HD which nephrology is pursuing. Labs in a.m. Code Status: Full code Discussed Condition With: RN, pt, CM Discharge Planning: Patient waiting for nephrology to clear, patient not end-stage renal disease yet. (2) Endocarditis Qualifiers: Endocarditis type: infective Infective endocarditis organism: bacterial Chronicity: acute Qualified Code(s): I33.0 - Acute and subacute infective endocarditis (5) Ascites Qualifiers: Ascites type: other type Qualified Code(s): R18.8 - Other ascites
--- NOTE | 2018-08-16 14:16 | P.PNNP ---
Subjective Interval history: Reports pain all over and needing another paracentesis. Denies any shortness of breath, chest pain, nausea, or vomiting. <Debbie Godinez - Last Filed: 08/16/18 14:13> Physical Exam Vital signs: Vital Signs 08/15/18 16:00 08/15/18 20:00 08/16/18 00:00 Temperature 97.6 F 98 F 97.2 F L Pulse Rate 99 H 99 H 97 H Respiratory Rate 18 17 17 Blood Pressure 116/85 114/63 126/83 Pulse Oximetry 91 L 95 95 08/16/18 08:00 08/16/18 08:50 08/16/18 12:00 Temperature 97.9 F 97.7 F Pulse Rate 99 H 101 H Respiratory Rate 18 17 Blood Pressure 118/86 120/80 Pulse Oximetry 90 L 94 L 91 L Intake & Output 08/15/18 08/16/18 08/16/18 18:59 06:59 18:59 Intake Total 550 / 550 480 / 480 Output Total 2300 / 2300 Balance -1750 / -1750 480 / 480 Weight 56 kg Intake: IV 50 / 50 Ancef 2 GM Premix Inj 2 gm In 50 / 50 50 ml @ 100 mls/hr IV.SIG DAILY SERGE Rx#:[id number] Oral 500 / 500 480 / 480 Output: Urine 300 / 300 Hemodialysis Amount 1999 Other: # Voids 1 Date of Last Bowel Movement 08/13/18 08/15/18 08/16/18 Narrative: GENERAL: Alert and oriented. SKIN: Warm and dry. Right IJ Perm cath. NECK: Supple, trachea midline. No JVD. CARDIOVASCULAR: Tachycardic. Murmur. RESPIRATORY: Breath sounds equal bilaterally. No accessory muscle use. GASTROINTESTINAL: Abdomen distended. Positive bowel sounds. MUSCULOSKELETAL: No cyanosis, or edema. BACK: Nontender without obvious deformity. <Debbie Godinez - Last Filed: 08/16/18 14:13> Vital signs: Vital Signs 08/18/18 20:00 08/18/18 20:10 08/19/18 00:00 Temperature 98.9 F 98.9 F Pulse Rate 115 H 100 H 113 H Respiratory Rate 18 18 16 Blood Pressure 122/87 118/89 Pulse Oximetry 94 L 94 L 95 08/19/18 02:44 08/19/18 02:45 08/19/18 08:00 Temperature 97.4 F L Pulse Rate 99 H 106 H Respiratory Rate 19 20 Blood Pressure 118/89 Pulse Oximetry 96 97 08/19/18 11:28 08/19/18 12:00 08/19/18 16:00 Temperature 98.1 F 97.8 F Pulse Rate 83 96 H 95 H Respiratory Rate 20 20 20 Blood Pressure 131/92 H 126/79 Pulse Oximetry 94 L 95 Intake & Output 08/18/18 08/19/18 08/19/18 18:59 06:59 18:59 Intake Total 450 / 450 480 / 480 Output Total 100 / 100 Balance 450 / 450 380 / 380 Weight 55 kg Intake: Oral 450 / 450 480 / 480 Output: Urine 100 / 100 Other: # Voids 1 Date of Last Bowel Movement 08/16/18 08/16/18 <Bhargav Monge - Last Filed: 08/19/18 18:09> Assessment and Plan - Assessment (1) Acute kidney injury Code(s): N17.9 - Acute kidney failure, unspecified Status: Acute Plan: Acute kidney injury requiring hemodialysis Patient has sepsis with hx of IVDA, developed TED possibly from glomerulonephritis/septic emboli Creatinine was noted to 0.81 on May 04, 2018 Hemodialysis started at [facility] on June 26. Hemodialysis Wednesday, Wednesday, and Wednesday Plan Avoid nephrotoxins including IV contrast and gadolinium. Epogen with dialysis PO4 low phoslo discontinued. Continue renal diet and fluid restriction. Hemodialysis yesterday with removal of 2 liters. Outpatient hemodialysis still to be arranged, not ESRD yet. (2) Endocarditis Code(s): I38 - Endocarditis, valve unspecified Status: Acute Qualifiers: Endocarditis type: infective Infective endocarditis organism: bacterial Chronicity: acute Qualified Code(s): I33.0 - Acute and subacute infective endocarditis Plan: Antibiotics completed. (3) Hyperkalemia Code(s): E87.5 - Hyperkalemia Status: Acute Plan: Labs in AM <Debbie Godinez - Last Filed: 08/16/18 14:13> - Assessment (1) Acute kidney injury Code(s): N17.9 - Acute kidney failure, unspecified Status: Acute Plan: Patient seen and examine, agree with above. Creatinine still elevated, HD to continue as needed. (2) Endocarditis Code(s): I38 - Endocarditis, valve unspecified Status: Acute Qualifiers: Endocarditis type: infective Infective endocarditis organism: bacterial Chronicity: acute Qualified Code(s): I33.0 - Acute and subacute infective endocarditis (3) Hyperkalemia Code(s): E87.5 - Hyperkalemia Status: Acute <Bhargav Monge - Last Filed: 08/19/18 18:09>
[2018-08-17] MEDS: Heparin - SQ 10,000 UNITS/ML Vial SQ SCH ×3 (05:21→22:14)
[2018-08-17 08:32] LABS: Hematocrit 39.4 % (35.0-46.0); Hemoglobin 12.2 gm/dL (11.6-15.3); Mean Platelet Volume 9.7 fL (7.0-11.0); Platelet Count 106 th/mm3 (150-450); Red Blood Count 4.06 mil/mm3 (4.00-5.30); Red Cell Distribution Width 23.3 % (11.6-17.2); White Blood Count 8.6 th/mm3 (4.0-11.0)
[2018-08-17 08:49] LABS: Mean Corpuscular HGB Conc 30.9 % (32.0-36.0)
[2018-08-17 09:03] LABS: Calcium 8.1 mg/dL (8.5-10.1); Carbon Dioxide 25.1 meq/L (21.0-32.0); Potassium 4.5 meq/L (3.5-5.1)
[2018-08-17] MEDS: Polyethylene Glycol 3350 17 GM Packet PO SCH ×2 (09:20→22:03)
[2018-08-17] MEDS: Famotidine 20 MG Tablet PO SCH ×2 (09:21→22:02)
[2018-08-17] MEDS: Senna/Docusate Sodium 8.6/50 MG Tablet PO SCH ×2 (09:21→22:03)
[2018-08-17] MEDS: Furosemide 40 MG Tablet PO SCH (09:23)
[2018-08-17] MEDS: Sodium Bicarbonate 650 MG Tablet PO SCH ×2 (09:25→22:03)
[2018-08-17] MEDS: FLUoxetine 10 MG Capsule PO SCH (09:25)
--- NOTE | 2018-08-17 11:22 | P.PNNP ---
Subjective Interval history: Resting on right side. Hemodialysis planned for today. Right hand with some swelling, most likely from IV site. <Debbie Godinez - Last Filed: 08/17/18 11:17> Physical Exam Vital signs: Vital Signs 08/16/18 12:00 08/16/18 16:00 08/16/18 20:00 Temperature 97.7 F 97.9 F 97.2 F L Pulse Rate 101 H 100 H 106 H Respiratory Rate 17 18 20 Blood Pressure 120/80 107/78 126/78 Pulse Oximetry 91 L 92 L 98 08/17/18 00:00 08/17/18 07:50 08/17/18 08:05 Temperature 97.0 F L 97.7 F Pulse Rate 87 96 H Respiratory Rate 20 18 Blood Pressure 119/72 125/95 H Pulse Oximetry 98 98 08/17/18 11:14 Temperature 97.8 F Pulse Rate 99 H Respiratory Rate 22 Blood Pressure 133/93 H Pulse Oximetry 94 L Intake & Output 08/16/18 08/17/18 08/17/18 18:59 06:59 18:59 Intake Total 500 / 500 480 / 480 Balance 500 / 500 480 / 480 Weight 56 kg Intake: Oral 500 / 500 480 / 480 Other: # Voids 2 1 Date of Last Bowel Movement 08/16/18 # Bowel Movements 1 Narrative: GENERAL: Alert and oriented. Child like SKIN: Warm and dry. Right IJ Perm cath. NECK: Supple, trachea midline. No JVD. CARDIOVASCULAR: Tachycardic. Murmur. RESPIRATORY: Breath sounds equal bilaterally. No accessory muscle use. GASTROINTESTINAL: Abdomen distended. Positive bowel sounds. MUSCULOSKELETAL: No cyanosis, or edema. BACK: Nontender without obvious deformity. <Debbie Godinez - Last Filed: 08/17/18 11:17> Vital signs: Vital Signs 08/21/18 20:00 08/21/18 21:21 08/22/18 00:00 Temperature 97.8 F 97.7 F Pulse Rate 88 86 Respiratory Rate 18 18 Blood Pressure 118/87 110/81 Pulse Oximetry 93 L 95 95 08/22/18 08:00 08/22/18 12:00 Temperature 97.5 F L 97.2 F L Pulse Rate 74 74 Respiratory Rate 20 20 Blood Pressure 122/91 H 110/80 Pulse Oximetry 98 96 Intake & Output 08/21/18 08/22/18 08/22/18 18:59 06:59 18:59 Intake Total 500 / 500 Output Total 100 / 100 Balance 400 / 400 Weight 54.6 kg Intake: Oral 500 / 500 Output: Urine 100 / 100 Other: # Voids 0 Date of Last Bowel Movement 08/21/18 08/21/18 # Bowel Movements 1 1 <Bhargav Monge - Last Filed: 08/22/18 17:10> Assessment and Plan - Assessment (1) Acute kidney injury Code(s): N17.9 - Acute kidney failure, unspecified Status: Acute Plan: Acute kidney injury requiring hemodialysis Patient has sepsis with hx of IVDA, developed TED possibly from glomerulonephritis/septic emboli Creatinine was noted to 0.81 on May 04, 2018 Hemodialysis started at [facility] on June 26. Hemodialysis Wednesday, Wednesday, and Wednesday Plan Avoid nephrotoxins including IV contrast and gadolinium. Epogen with dialysis PO4 low PhosLo discontinued. Albumin levels low protein increased in diet Continue renal diet and fluid restriction. Plan for hemodialysis today will remove fluid as tolerated Will follow BMP, UOP, and watch for renal recovery. Outpatient hemodialysis still to be arranged, not ESRD yet. (2) Endocarditis Code(s): I38 - Endocarditis, valve unspecified Status: Acute Qualifiers: Endocarditis type: infective Infective endocarditis organism: bacterial Chronicity: acute Qualified Code(s): I33.0 - Acute and subacute infective endocarditis Plan: Antibiotics completed. (3) Hyperkalemia Code(s): E87.5 - Hyperkalemia Status: Acute Plan: Resolved 4.5 <Debbie Godinez - Last Filed: 08/17/18 11:17> - Assessment (1) Acute kidney injury Code(s): N17.9 - Acute kidney failure, unspecified Status: Acute Plan: Patient seen an examined, agree with above. Watch for renal recovery. HD as needed. (2) Endocarditis Code(s): I38 - Endocarditis, valve unspecified Status: Acute Qualifiers: Endocarditis type: infective Infective endocarditis organism: bacterial Chronicity: acute Qualified Code(s): I33.0 - Acute and subacute infective endocarditis (3) Hyperkalemia Code(s): E87.5 - Hyperkalemia Status: Acute <Bhargav Monge - Last Filed: 08/22/18 17:10>
--- NOTE | 2018-08-17 12:20 | P.PN ---
Subjective Interval history: Follow up for endocarditis, ESRD: Patient seen and examined, flat affect. Complains of abdominal distention, think she has more ascites. Pain all over. No chest pain, no shortness of breath. No fever. Per nursing, family has been bringing drinks from home. Physical Exam Vital signs: Vital Signs 08/16/18 16:00 08/16/18 20:00 08/17/18 00:00 Temperature 97.9 F 97.2 F L 97.0 F L Pulse Rate 100 H 106 H 87 Respiratory Rate 18 20 20 Blood Pressure 107/78 126/78 119/72 Pulse Oximetry 92 L 98 98 08/17/18 07:50 08/17/18 08:05 08/17/18 11:14 Temperature 97.7 F 97.8 F Pulse Rate 96 H 99 H Respiratory Rate 18 22 Blood Pressure 125/95 H 133/93 H Pulse Oximetry 98 94 L 08/17/18 11:17 Temperature Pulse Rate Respiratory Rate 22 Blood Pressure Pulse Oximetry Intake & Output 08/16/18 08/17/18 08/17/18 18:59 06:59 18:59 Intake Total 500 / 500 480 / 480 Balance 500 / 500 480 / 480 Weight 56 kg Intake: Oral 500 / 500 480 / 480 Other: # Voids 2 1 Date of Last Bowel Movement 08/16/18 08/16/18 # Bowel Movements 1 Narrative: GENERAL: Thin built, chronically ill-appearing female. SKIN: Warm and dry. HEAD: Atraumatic. Normocephalic. EYES: Pupils equal and round. No scleral icterus. No injection or drainage. ENT: No nasal bleeding or discharge. Mucous membranes pink and moist. NECK: Trachea midline. No JVD. CARDIOVASCULAR: Regular rate and rhythm. RESPIRATORY: No accessory muscle use. Clear to auscultation. Breath sounds equal bilaterally. GASTROINTESTINAL: Abdomen distended. Positive for ascites. Normoactive BS x 3 MUSCULOSKELETAL: Extremities without clubbing, cyanosis, or edema. No obvious deformities. NEUROLOGICAL: Awake, alert oriented x3. No focal deficits. PSYCHIATRIC: Flat affect. Childish in her behavior Results - Labs CBC & Chem 7: 08/17/18 07:32 08/17/18 07:32 Laboratory Results - last 24 hr 08/17/18 08/17/18 07:32 07:32 WBC 8.6 RBC 4.06 Hgb 12.2 Hct 39.4 MCV 97.0 MCH 30.0 MCHC 30.9 L RDW 23.3 H Plt Count 106 L MPV 9.7 Sodium 134 L Potassium 4.5 Chloride 97 L Carbon Dioxide 25.1 Anion Gap 12 BUN 45 H Creatinine 3.92 H Estimated GFR 14 L Random Glucose 71 L Calcium 8.1 L - Procedures 07/14 paracentesis Perm cath Assessment and Plan - Assessment (1) IV drug abuse Code(s): F19.10 - Other psychoactive substance abuse, uncomplicated Status: Acute (2) Endocarditis Code(s): I38 - Endocarditis, valve unspecified Status: Acute (3) Sepsis Code(s): A41.9 - Sepsis, unspecified organism Status: Resolved (4) End-stage renal disease (ESRD) Code(s): N18.6 - End stage renal disease Status: Acute (5) Ascites Code(s): R18.8 - Other ascites Status: Acute (6) Acute kidney injury Code(s): N17.9 - Acute kidney failure, unspecified Status: Acute - Plan 28-year-old female with infective tricuspid valve endocarditis and multiorgan dysfunction secondary to endocarditis. remains in heart failure and volume overload, and associated organ failure, including severe renal failure requiring renal replacement therapy. continue to daily pull fluid by HD. Broad spectrum abx. overall prognosis is quite poor given history of leaving AMA: she will likely not survive if she continues to leave AMA. Competed treatment for urinary cisco. Completed ~6 week regimen of IV ancef for MSSA bacteremia on . Infective tricuspid valve endocarditis Moderate tricuspid valve regurgitation Mixed septic and cardiogenic shock secondary to infective endocarditis- resolving. Sinus tachycardia Bedside echo shows large tricuspid regurgitation with moderate to severe TR With noncompliance and multiple AMA discharges, Not a candidate for valve replacement until she can complete antibiotic therapy and demonstrate medical compliance by not leaving AMA. -Per ID patient, completed Ancef for MSSA End-stage renal disease -Patient came with outside hospital dialysis access in place. -Perm cath in place, nephrology following, appreciate assistance -Continue renal diet with fluid restriction 1.5L -Nephrology following, trying to obtain review outside medical records so that she can be eventually approved for routine dialysis tricuspid regurgitation. Seen on outside echo BNP above 5000 (07/21), obviously affected by renal failure. Ascites is likely secondary CHF. -Continue Lasix 40 mg p.o. daily Ascites Secondary to severe renal injury and suspected CHF Paracentesis 07/17 with 2.1L removed paracentesis 08/11 with 2.8 L. -continue Lasix -Complaints of increased abdominal distention, will order abdominal ultrasound to evaluate for ascites. IV drug dependence -prn oxycodone to prevent withdrawal GI Prophylaxis-pepcid DVT Prophylaxis - SCDs/Heparin subcutaneous. CM working on proceeding with disability process. Needs Dx of chronic/ESRD to arrange for transitional HD which nephrology is pursuing. Labs reviewed, stable Code Status: Full code Discussed Condition With: RN, patient, case management Discharge Planning: Patient waiting for nephrology to clear, patient not end-stage renal disease yet. (2) Endocarditis Qualifiers: Endocarditis type: infective Infective endocarditis organism: bacterial Chronicity: acute Qualified Code(s): I33.0 - Acute and subacute infective endocarditis (5) Ascites Qualifiers: Ascites type: other type Qualified Code(s): R18.8 - Other ascites
--- NOTE | 2018-08-17 13:36 | US ---
EXAM DATE: 08/17/2018 12:00 AM EDT AGE/SEX: 28 years / Female INDICATIONS: Ascites. CLINICAL DATA: This is the patient's subsequent encounter. Patient reports that signs and symptoms h ave been present for 1 month and indicates a pain score of 2/10. MEDICAL/SURGICAL HISTORY: . Asthma. Cholecystitis. Endocarditis. . Tooth extraction. COMPARISON: [facility], US PARACENTESIS ABD W/IMAGE, 08/10/2018. . FINDINGS: Masses: None Fluid Collections: None Other: None. CONCLUSION: 1. Moderate ascites Electronically signed by: Maksim Branham MD 08/17/2018 1:35 PM EDT
[2018-08-17] MEDS ORDERED: Sodium Chloride 0.9% 2 ML Flush PRN IV.FLUSH (14:51)
[2018-08-17] MEDS: Sodium Chloride 0.9% 2 ML Flush BID IV.FLUSH SCH (22:03)
[2018-08-18] MEDS: Heparin - SQ 10,000 UNITS/ML Vial SQ SCH (06:42)
[2018-08-18] MEDS: Sodium Chloride 0.9% 2 ML Flush BID IV.FLUSH SCH ×2 (08:44→22:17)
[2018-08-18] MEDS: Polyethylene Glycol 3350 17 GM Packet PO SCH ×2 (08:44→22:14)
[2018-08-18] MEDS: Famotidine 20 MG Tablet PO SCH ×2 (08:44→22:14)
[2018-08-18] MEDS: FLUoxetine 10 MG Capsule PO SCH (08:44)
[2018-08-18] MEDS: Furosemide 40 MG Tablet PO SCH (08:44)
[2018-08-18] MEDS: Senna/Docusate Sodium 8.6/50 MG Tablet PO SCH ×2 (08:44→22:15)
[2018-08-18] MEDS: Sodium Bicarbonate 650 MG Tablet PO SCH (08:44)
--- NOTE | 2018-08-18 09:52 | P.PNNP ---
Subjective Interval history: Patient is sleeping. Complains of abdominal distention and and discomfort. Hemodialysis yesterday. <Debbie Godinez - Last Filed: 08/18/18 09:48> Physical Exam Vital signs: Vital Signs 08/17/18 11:14 08/17/18 11:17 08/17/18 16:56 Temperature 97.8 F Pulse Rate 99 H Respiratory Rate 22 22 Blood Pressure 133/93 H Pulse Oximetry 94 L 94 L 08/17/18 20:00 08/17/18 21:17 08/18/18 00:00 Temperature 97.2 F L 97.8 F Pulse Rate 110 H 99 H 112 H Respiratory Rate 20 22 20 Blood Pressure 130/92 H 114/91 H Pulse Oximetry 96 96 08/18/18 08:00 08/18/18 08:01 08/18/18 09:03 Temperature 98.1 F Pulse Rate 118 H 105 H Respiratory Rate 17 15 Blood Pressure 124/95 H Pulse Oximetry 94 L 98 Intake & Output 08/17/18 08/18/18 08/18/18 18:59 06:59 18:59 Output Total 3000 / 3000 Balance -3000 / -3000 Weight 55.9 kg Output: Hemodialysis Amount 3000 / 3000 Other: # Voids 1 Date of Last Bowel Movement 08/16/18 08/16/18 Narrative: GENERAL: Alert and oriented. Child like SKIN: Warm and dry. Right IJ Perm cath. NECK: Supple, trachea midline. No JVD. CARDIOVASCULAR: Tachycardic. Murmur. RESPIRATORY: Breath sounds equal bilaterally. No accessory muscle use. GASTROINTESTINAL: Abdomen distended. Positive bowel sounds. MUSCULOSKELETAL: No cyanosis, or edema. BACK: Nontender without obvious deformity. <Debbie Godinez - Last Filed: 08/18/18 09:48> Vital signs: Vital Signs 08/21/18 20:00 08/21/18 21:21 08/22/18 00:00 Temperature 97.8 F 97.7 F Pulse Rate 88 86 Respiratory Rate 18 18 Blood Pressure 118/87 110/81 Pulse Oximetry 93 L 95 95 08/22/18 08:00 08/22/18 12:00 Temperature 97.5 F L 97.2 F L Pulse Rate 74 74 Respiratory Rate 20 20 Blood Pressure 122/91 H 110/80 Pulse Oximetry 98 96 Intake & Output 08/21/18 08/22/18 08/22/18 18:59 06:59 18:59 Intake Total 500 / 500 Output Total 100 / 100 Balance 400 / 400 Weight 54.6 kg Intake: Oral 500 / 500 Output: Urine 100 / 100 Other: # Voids 0 Date of Last Bowel Movement 08/21/18 08/21/18 # Bowel Movements 1 1 <Bhargav Monge - Last Filed: 08/22/18 17:23> Assessment and Plan - Assessment (1) Acute kidney injury Code(s): N17.9 - Acute kidney failure, unspecified Status: Acute Plan: Acute kidney injury requiring hemodialysis Patient has sepsis with hx of IVDA, developed TED possibly from glomerulonephritis/septic emboli Creatinine was noted to 0.81 on May 04, 2018 Hemodialysis started at [facility] on June 26. Hemodialysis Wednesday, Wednesday, and Wednesday Plan Avoid nephrotoxins including IV contrast and gadolinium. Epogen discontinue with improvement in HGB PO4 low PhosLo discontinued recheck tomorrow Continue renal diet and fluid restriction. Hemodialysis yesterday with removal of 3 liters of fluid Will follow BMP, UOP, and watch for renal recovery. Outpatient hemodialysis still to be arranged, not ESRD yet. (2) Endocarditis Code(s): I38 - Endocarditis, valve unspecified Status: Acute Qualifiers: Endocarditis type: infective Infective endocarditis organism: bacterial Chronicity: acute Qualified Code(s): I33.0 - Acute and subacute infective endocarditis Plan: Antibiotics completed. (3) Hyperkalemia Code(s): E87.5 - Hyperkalemia Status: Acute Plan: Labs in AM <Debbie Godinez - Last Filed: 08/18/18 09:48> - Assessment (1) Acute kidney injury Code(s): N17.9 - Acute kidney failure, unspecified Status: Acute Plan: Patient seen an examined, agree with above. Patient has so far not much improvement in renal function. Her Creatinine was normal in May 2018. Continue HD 3 times a week. (2) Endocarditis Code(s): I38 - Endocarditis, valve unspecified Status: Acute Qualifiers: Endocarditis type: infective Infective endocarditis organism: bacterial Chronicity: acute Qualified Code(s): I33.0 - Acute and subacute infective endocarditis (3) Hyperkalemia Code(s): E87.5 - Hyperkalemia Status: Acute <Bhargav Monge - Last Filed: 08/22/18 17:23>
--- NOTE | 2018-08-18 12:29 | P.PN ---
Subjective Interval history: Follow up for endocarditis, ESRD: Patient seen and examined, tachypneic. Requesting breathing treatment. Was given 1 hour ago. Complains of shortness of breath, no wheezing noted. She refused diuretic this morning, attempted to reason with her, she believed it was a laxative. I corrected information however patient continues to refuse. Also refusing lactulose. No chest pain. No fever. Wants abdomen drained, informed that radiologist evaluated abdominal ultrasound and she does not have enough fluid to be drained. ROS difficult to obtain. Physical Exam Vital signs: Vital Signs 08/17/18 16:56 08/17/18 20:00 08/17/18 21:17 Temperature 97.2 F L Pulse Rate 110 H 99 H Respiratory Rate 20 22 Blood Pressure 130/92 H Pulse Oximetry 94 L 96 08/18/18 00:00 08/18/18 08:00 08/18/18 08:01 Temperature 97.8 F 98.1 F Pulse Rate 112 H 118 H Respiratory Rate 20 17 Blood Pressure 114/91 H 124/95 H Pulse Oximetry 96 94 L 98 08/18/18 09:03 08/18/18 12:00 Temperature 97.6 F Pulse Rate 105 H 121 H Respiratory Rate 15 17 Blood Pressure 123/82 Pulse Oximetry 95 Intake & Output 08/17/18 08/18/18 08/18/18 18:59 06:59 18:59 Output Total 3000 / 3000 Balance -3000 / -3000 Weight 55.9 kg Output: Hemodialysis Amount 3000 / 3000 Other: # Voids 1 Date of Last Bowel Movement 08/16/18 08/16/18 Narrative: GENERAL: Thin built, chronically ill-appearing female. SKIN: Warm and dry. Right hand with a small area of erythema, likely phlebitis from recent IV site. HEAD: Atraumatic. Normocephalic. EYES: Pupils equal and round. No scleral icterus. No injection or drainage. ENT: No nasal bleeding or discharge. Mucous membranes pink and moist. NECK: Trachea midline. No JVD. CARDIOVASCULAR: Regular rate and rhythm. RESPIRATORY: Tachypneic, no wheezing noted. Faint rales at bases. GASTROINTESTINAL: Abdomen distended. Positive for ascites. Normoactive BS x 3 MUSCULOSKELETAL: Extremities without clubbing, cyanosis, or edema. No obvious deformities. NEUROLOGICAL: Awake, alert oriented x3. No focal deficits. PSYCHIATRIC: Anxious, refusing care. Does not appear to have good insight into her medical problems. Childish in her behavior. Results - Labs CBC & Chem 7: 08/17/18 07:32 08/17/18 07:32 - Imaging Impressions Abdomen Ultrasound 08/17/18 00:00 CONCLUSION: 1. Moderate ascites - Procedures 07/14 paracentesis Perm cath Assessment and Plan - Assessment (1) IV drug abuse Code(s): F19.10 - Other psychoactive substance abuse, uncomplicated Status: Acute (2) Endocarditis Code(s): I38 - Endocarditis, valve unspecified Status: Acute (3) Sepsis Code(s): A41.9 - Sepsis, unspecified organism Status: Resolved (4) End-stage renal disease (ESRD) Code(s): N18.6 - End stage renal disease Status: Acute (5) Ascites Code(s): R18.8 - Other ascites Status: Acute (6) Acute kidney injury Code(s): N17.9 - Acute kidney failure, unspecified Status: Acute - Plan 28-year-old female with infective tricuspid valve endocarditis and multiorgan dysfunction secondary to endocarditis. remains in heart failure and volume overload, and associated organ failure, including severe renal failure requiring renal replacement therapy. continue to daily pull fluid by HD. Broad spectrum abx. overall prognosis is quite poor given history of leaving AMA: she will likely not survive if she continues to leave AMA. Competed treatment for urinary cisco. Completed ~6 week regimen of IV ancef for MSSA bacteremia on . Infective tricuspid valve endocarditis Moderate tricuspid valve regurgitation Mixed septic and cardiogenic shock secondary to infective endocarditis- resolving. Bedside echo shows large tricuspid regurgitation with moderate to severe TR With noncompliance and multiple AMA discharges, Not a candidate for valve replacement until she can complete antibiotic therapy and demonstrate medical compliance by not leaving AMA. -Per ID patient, completed Ancef for MSSA Sinus tachycardia Heart rate trending up -We will add low-dose Lopressor 2.5 mg p.o. twice daily End-stage renal disease -Patient came with outside hospital dialysis access in place. -Perm cath in place, nephrology following, appreciate assistance -Continue renal diet with fluid restriction 1.5L -Nephrology following, trying to obtain review outside medical records so that she can be eventually approved for routine dialysis tricuspid regurgitation. Seen on outside echo BNP above 5000 (07/21), obviously affected by renal failure. Ascites is likely secondary CHF. -Continue Lasix 40 mg p.o. daily, refusing Ascites Secondary to severe renal injury and suspected CHF Paracentesis 07/17 with 2.1L removed paracentesis 08/11 with 2.8 L. -continue Lasix -refused today -Complaints of increased abdominal distention, abdominal ultrasound done. Spoke to tech yesterday, per rad. not enough fluid to drain. C/O sob, tachycardic Sats 95 on RA Refused lasix -stat PCXR -d/w pt to take Lasix, she continues to refuse -Duonebs PRN IV drug dependence -prn oxycodone to prevent withdrawal Thrombocytopenia Platelets noted trending down, from 200 on 08/05/2018 to 106 08/17 -Stop heparin, patient has been refusing. -follow CBC GI Prophylaxis-pepcid DVT Prophylaxis - SCDs DC heparin, pt. thrombocytopenic, coagulopathic INR 1.6. CM working on proceeding with disability process. Needs Dx of chronic/ESRD to arrange for transitional HD which nephrology is pursuing. Repeat labs in the morning Code Status: Full code Discussed Condition With: RN, pt, CM Discharge Planning: Patient waiting for nephrology to clear, patient not end-stage renal disease yet. (2) Endocarditis Qualifiers: Endocarditis type: infective Infective endocarditis organism: bacterial Chronicity: acute Qualified Code(s): I33.0 - Acute and subacute infective endocarditis (5) Ascites Qualifiers: Ascites type: other type Qualified Code(s): R18.8 - Other ascites
--- NOTE | 2018-08-18 13:13 | XR ---
EXAM DATE: 08/18/2018 12:00 AM EDT AGE/SEX: 28 years / Female INDICATIONS: Short of breath. CLINICAL DATA: This is the patient's subsequent encounter. Patient reports that signs and symptoms h ave been present for 1 week and indicates a pain score of 0/10. MEDICAL/SURGICAL HISTORY: . Asthma. Hepatitis C. None. COMPARISON: C, CHEST 1V SINGLE AP, 07/15/2018. . FINDINGS: Stable right IJ dialysis catheter. Patchy bilateral airspace disease slightly more confluent in the r ight mid to lower lung zone in comparison to prior exam. Chronic silhouette is enlarged. Remainder of the exam is unchanged. CONCLUSION: 1. Pulmonary edema pattern with more confluent airspace consolidation in the right mid to lower lung zone. Cannot exclude developing pneumonia or aspiration in the appropriate clinical setting. Electronically signed by: Brendon Todd MD 08/18/2018 1:11 PM EDT
[2018-08-18] MEDS: Metoprolol Tartrate 25 MG Tablet PO SCH (22:16)
[2018-08-19] MEDS: Famotidine 20 MG Tablet PO SCH ×2 (09:44→21:57)
[2018-08-19] MEDS: FLUoxetine 10 MG Capsule PO SCH (09:44)
[2018-08-19] MEDS: Furosemide 40 MG Tablet PO SCH (09:45)
[2018-08-19] MEDS: Metoprolol Tartrate 25 MG Tablet PO SCH ×2 (09:45→21:57)
[2018-08-19] MEDS: Senna/Docusate Sodium 8.6/50 MG Tablet PO SCH (09:46)
[2018-08-19] MEDS: Polyethylene Glycol 3350 17 GM Packet PO SCH (09:46)
--- NOTE | 2018-08-19 11:52 | P.PNNP ---
Subjective Interval history: Reports feeling shortness of breath, waiting for breathing treatment. No wheezing, rales, or rhonchi noted. Plan for hemodialysis today. <Debbie Godinez - Last Filed: 08/19/18 11:48> Physical Exam Vital signs: Vital Signs 08/18/18 12:00 08/18/18 12:25 08/18/18 16:00 Temperature 97.6 F 98.1 F Pulse Rate 121 H 118 H 125 H Respiratory Rate 17 15 17 Blood Pressure 123/82 131/88 Pulse Oximetry 95 94 L 08/18/18 16:15 08/18/18 20:00 08/18/18 20:10 Temperature 98.9 F Pulse Rate 101 H 115 H 100 H Respiratory Rate 15 18 18 Blood Pressure 122/87 Pulse Oximetry 94 L 94 L 08/19/18 00:00 08/19/18 02:44 08/19/18 02:45 Temperature 98.9 F Pulse Rate 113 H 99 H Respiratory Rate 16 19 Blood Pressure 118/89 Pulse Oximetry 95 96 08/19/18 08:00 08/19/18 11:28 Temperature 97.4 F L Pulse Rate 106 H 83 Respiratory Rate 20 20 Blood Pressure 118/89 Pulse Oximetry 97 Intake & Output 08/18/18 08/19/18 08/19/18 18:59 06:59 18:59 Intake Total 450 / 450 480 / 480 Output Total 100 / 100 Balance 450 / 450 380 / 380 Weight 55 kg Intake: Oral 450 / 450 480 / 480 Output: Urine 100 / 100 Other: # Voids 1 Date of Last Bowel Movement 08/16/18 Narrative: GENERAL: Alert and oriented. Child like SKIN: Warm and dry. Right IJ Perm cath. NECK: Supple, trachea midline. No JVD. CARDIOVASCULAR: Tachycardic. Murmur. RESPIRATORY: Breath sounds equal bilaterally. No accessory muscle use. GASTROINTESTINAL: Abdomen distended. Positive bowel sounds. MUSCULOSKELETAL: No cyanosis, or edema. BACK: Nontender without obvious deformity. <Debbie Godinez - Last Filed: 08/19/18 11:48> Vital signs: Vital Signs 08/22/18 20:00 08/22/18 22:03 08/22/18 23:50 Temperature 97.9 F 97.3 F L Pulse Rate 77 86 81 Respiratory Rate 16 16 16 Blood Pressure 110/73 114/84 Pulse Oximetry 98 98 96 08/23/18 03:25 08/23/18 08:00 08/23/18 08:02 Temperature 97.4 F L Pulse Rate 80 86 Respiratory Rate 17 17 Blood Pressure 121/77 Pulse Oximetry 98 99 99 08/23/18 11:38 08/23/18 12:00 08/23/18 16:00 Temperature 97.4 F L 97.5 F L Pulse Rate 86 89 82 Respiratory Rate 16 17 17 Blood Pressure 122/97 H 114/74 Pulse Oximetry 98 91 L 97 08/23/18 16:40 Temperature Pulse Rate 88 Respiratory Rate 16 Blood Pressure Pulse Oximetry Intake & Output 08/22/18 08/23/18 08/23/18 18:59 06:59 18:59 Intake Total 480 / 480 Output Total 300 / 300 Balance -300 / -300 480 / 480 Weight 55 kg Intake: Oral 480 / 480 Output: Urine 300 / 300 Other: # Voids 0 Date of Last Bowel Movement 08/21/18 08/21/18 08/21/18 # Bowel Movements 0 <Bhargav Monge - Last Filed: 08/23/18 18:04> Assessment and Plan - Assessment (1) Acute kidney injury Code(s): N17.9 - Acute kidney failure, unspecified Status: Acute Plan: Acute kidney injury requiring hemodialysis Patient has sepsis with hx of IVDA, developed TED possibly from glomerulonephritis/septic emboli Creatinine was noted to 0.81 on May 04, 2018 Hemodialysis started at [facility] on June 26. Hemodialysis Wednesday, Wednesday, and Wednesday Plan Avoid nephrotoxins including IV contrast and gadolinium. Continue renal diet and fluid restriction. Hemodialysis planned for today will remove fluid as tolerated Will follow BMP and UOP. No improvement in the renal function as of yet. (2) Endocarditis Code(s): I38 - Endocarditis, valve unspecified Status: Acute Plan: Antibiotics completed. (3) Hyperkalemia Code(s): E87.5 - Hyperkalemia Status: Acute Plan: Labs in AM <Debbie Godinez - Last Filed: 08/19/18 11:48> - Assessment (1) Acute kidney injury Code(s): N17.9 - Acute kidney failure, unspecified Status: Acute Plan: Patient seen and examined, agree with above. Creatinine is still elevated, continue HD as needed. Watch for renal recovery. (2) Endocarditis Code(s): I38 - Endocarditis, valve unspecified Status: Acute Qualifiers: Endocarditis type: infective Infective endocarditis organism: bacterial Chronicity: acute Qualified Code(s): I33.0 - Acute and subacute infective endocarditis (3) Hyperkalemia Code(s): E87.5 - Hyperkalemia Status: Acute <Bhargav Monge - Last Filed: 08/23/18 18:04>
--- NOTE | 2018-08-19 12:15 | P.PNPAL ---
Reason for Visit Reason for visit: a. To assist with evaluation and management of symptoms including: pain, anxiety, dyspnea. b. To assist medical decision maker(s) with: better understanding of current medical conditions; weighing benefits/burdens of medical treatment options; making medical treatment decisions. Subjective Subjective/Interval History: Follow-up medically necessary for symptom management. Patient seen and examined in the room. Patient immediately complaining that she is short of breath and is dying and he has been waiting for a breathing treatment for a long time. Patient states that she would rather go home and have breathing treatments there. Patient is currently on humidified O2 4 L nasal cannula with O2 saturation in the mid to high 90s. No acute signs of respiratory distress noted, no wheezing. Noted in EMR that patient has been refusing some of her medications including furosemide on 08/18/18, MiraLAX and Jud-Colace. Patient does not want to engage in any other conversation at this time. Patient using vulgar language throughout brief conversation with her. Pain managed with oxycodone 5 mg q 4hrs prn , is required x4 doses in the past 24 hours. Notified respiratory therapist of patient`s request for a breathing treatment. Family/Friend Interactions: No family at bedside Advance Directives Health Care Surrogate: Copy in medical record Advance Directives Date on File: 07/18/18 (Designation of Health Care Surrogate. ) Health Care Surrogate Name and Number: Heather Hardy, mother: [phone] ( primary [facility]) Documented care wishes:: No living will, declined completion. Objective Vital Signs: Vital Signs 08/18/18 12:00 08/18/18 12:25 08/18/18 16:00 Temperature 97.6 F 98.1 F Pulse Rate 121 H 118 H 125 H Respiratory Rate 17 15 17 Blood Pressure 123/82 131/88 Pulse Oximetry 95 94 L 08/18/18 16:15 08/18/18 20:00 08/18/18 20:10 Temperature 98.9 F Pulse Rate 101 H 115 H 100 H Respiratory Rate 15 18 18 Blood Pressure 122/87 Pulse Oximetry 94 L 94 L 08/19/18 00:00 08/19/18 02:44 08/19/18 02:45 Temperature 98.9 F Pulse Rate 113 H 99 H Respiratory Rate 16 19 Blood Pressure 118/89 Pulse Oximetry 95 96 08/19/18 08:00 08/19/18 11:28 Temperature 97.4 F L Pulse Rate 106 H 83 Respiratory Rate 20 20 Blood Pressure 118/89 Pulse Oximetry 97 Intake & Output 08/18/18 08/19/18 08/19/18 18:59 06:59 18:59 Intake Total 450 / 450 480 / 480 Output Total 100 / 100 Balance 450 / 450 380 / 380 Weight 55 kg Intake: Oral 450 / 450 480 / 480 Output: Urine 100 / 100 Other: # Voids 1 Date of Last Bowel Movement 08/16/18 Physical Exam: CONSTITUTIONAL/GENERAL: This is a chronically ill looking patient in no acute distress TUBES/LINES/DRAINS: NC, Right IJ vas-cath. SKIN: Pale. Ecchymoses on upper extremities. Wound reported on coccyx 1x1cm, not visualized by me. No wounds seen anteriorly. Not diaphoretic. CARDIOVASCULAR: tachycardic, systolic murmur. RESPIRATORY/CHEST: Unlabored respirations. No wheezing, rales or rhonchi. GASTROINTESTINAL: Abdomen soft, mildly tender, distended. + ascites. No guarding. Active bowel sounds GENITOURINARY: Without palpable bladder distension. MUSCULOSKELETAL: Extremities with 2+ pitting edema. NEUROLOGICAL: Awake and alert. Follows simple commands with all 4 extremities. PSYCHIATRIC: Irritable, agitated Diagnostic Tests Laboratory: Laboratory Results - last 72 hr 08/17/18 08/17/18 07:32 07:32 WBC 8.6 RBC 4.06 Hgb 12.2 Hct 39.4 MCV 97.0 MCH 30.0 MCHC 30.9 L RDW 23.3 H Plt Count 106 L MPV 9.7 Sodium 134 L Potassium 4.5 Chloride 97 L Carbon Dioxide 25.1 Anion Gap 12 BUN 45 H Creatinine 3.92 H Estimated GFR 14 L Random Glucose 71 L Calcium 8.1 L Result Diagrams: 08/17/18 07:32 08/17/18 07:32 Imaging: Abdomen/Pelvis CT 07/13/18 20:07 CONCLUSION: 1. Bibasilar patchy airspace disease and minimal pleural fluid. 2. Moderate amount of diffuse ascites as well as anasarca. 3. Nonobstructive bowel gas pattern with poor delineation of the bowel secondary to anasarca, lack of intravenous and oral contrast. 4. Cardiomegaly. Catheter Placement 07/28/18 00:00 CONCLUSION: 1. Uncomplicated tunneled dialysis catheter placement as above. Central Venous Line 08/01/18 00:00 CONCLUSION: 1. Uncomplicated PermaCath placement as above. Venous Access Device Injection 08/01/18 00:00 CONCLUSION: 1. Intact dialysis catheter. There is a kink in the catheter and it is to be replaced. Paracentesis Ultrasound 08/10/18 00:00 CONCLUSION: 1. Uncomplicated paracentesis Abdomen Ultrasound 08/17/18 00:00 CONCLUSION: 1. Moderate ascites Chest X-Ray 08/18/18 00:00 CONCLUSION: 1. Pulmonary edema pattern with more confluent airspace consolidation in the right mid to lower lung zone. Cannot exclude developing pneumonia or aspiration in the appropriate clinical setting. Procedures: * 07/17/18 - paracentesis * 07/14/18 - paracentesis * right IJ vas-cath placed at on 07/12/18 Assessment and Plan - Disease Oriented Problem List (1) Sepsis (2) IV drug abuse (3) Endocarditis (4) End-stage renal disease (ESRD) (5) Hyperkalemia (6) Acidosis, lactic - Symptom Scale (2) Shortness of breath 0-10 Scale: Unable to quantify Pertinent Non-Medical Issues: Psychosocial: Single. 2 sons, ages 3 & 4. Supported by her mother and step- father (she does not have a great relationship with him). Has 3 sisters. Spiritual:None. Legal: Patient is capacitated to make her own health care decisions. No written advance directives. Single. Father . 2 sons, ages 3 & 4. According to [place] statutes, health care proxy decision making falls to a parent. Ethical issues impacting care: No known concerns at this time. Important Contacts: * Heather Hardy, mother/ HCS: [phone] Prognosis: Per pipe supervisor Dr. Hussein on 07/14/18: "28-year-old female with infective tricuspid valve endocarditis and multiorgan dysfunction secondary to endocarditis as well as mixed septic and cardiogenic shock. We are obtaining records from outside hospital. It is unclear what her clinical course has been , but she does clearly appear to be in acute renal failure as well as volume overload, heart failure secondary to valvulopathy, and septic shock. I think her dialysis catheter should be exchanged, but in the interest of taking care of her medical needs acutely, we will keep this line for now. I have had a long discussion with the patient which I explained that every time she leaves AGAINST MEDICAL ADVICE and returns she is sick her with new and worsening shock and worsening organ failure. In particular, her readmission today versus last admission in May she is far more critically ill and more deconditioned. I explained that I am very worried that if she leaves AGAINST MEDICAL ADVICE again , she will likely of this illness. I have consulted palliative care to ask their assistance in discussing with the patient and her overall goals of care, particularly if she continues to leave AGAINST MEDICAL ADVICE. For now she is very critically ill with multiorgan failure." Code Status: Full Code Plan: * Patient is currently capacitated to make her own health care decisions. No written advance directives. Single. Father . 2 sons, ages 3 & 4, she does not have custody. Completed designation of Health Care Surrogate paperwork on 07/18/18 naming her mother, Heather Hardy as primary HCS and sister Aline Jamil as alternate HCS. * FULL CODE * Goals: Patient desires all aggressive measures. * SYMPTOMS: * Pain: reports pain in chest, back, legs and neck. Has oxycodone 5mg PO every 4 hours PRN 1-5, none given and hydromorphone 0.25mg PRN every 1 hours PRN pain 8-10, one dose given with reported relief of pain. No new medication recommendations at this time. * Shortness of breath: due to endocarditis, asthma, CHF (BNP > 5000), going for HD. * Anxiety: secondary to dyspnea: will defer anxiety management to attending. * Palliative care will continue to follow to assist with symptom management and further clarification of medical treatment goals. . Attestation Attestation: To help prompt me to consider important information that might be impacting today's encounter and assessment, information from prior notes written by myself or my colleagues may have been "brought forward" into today's note. My signature on this note, however, is an attestation that I personally performed the exam, history, and/or decision-making noted today, and, unless otherwise indicated, the interactions with patient, family, and staff as well as the review of records all occurred today. I also attest that the listed assessment and stated plan reflect my best clinical judgment today based on the combination of historical information, prior notes, and today's exam/ interactions. When time spent is documented, it refers only to time spent today by the signer, or if indicated, combined time spent today by collaborating physician/nurse practitioner.
--- NOTE | 2018-08-19 13:58 | P.PN ---
Subjective Interval history: Follow up for endocarditis, ESRD: Patient seen and examined, anxious, requesting a breathing treatment. Lungs essentially clear, no wheezing noted. Patient did take Lasix today. Complains of pain everywhere. No fever. Wants something to drink. Physical Exam Vital signs: Vital Signs 08/18/18 16:00 08/18/18 16:15 08/18/18 20:00 Temperature 98.1 F 98.9 F Pulse Rate 125 H 101 H 115 H Respiratory Rate 17 15 18 Blood Pressure 131/88 122/87 Pulse Oximetry 94 L 94 L 08/18/18 20:10 08/19/18 00:00 08/19/18 02:44 Temperature 98.9 F Pulse Rate 100 H 113 H 99 H Respiratory Rate 18 16 19 Blood Pressure 118/89 Pulse Oximetry 94 L 95 08/19/18 02:45 08/19/18 08:00 08/19/18 11:28 Temperature 97.4 F L Pulse Rate 106 H 83 Respiratory Rate 20 20 Blood Pressure 118/89 Pulse Oximetry 96 97 08/19/18 12:00 Temperature 98.1 F Pulse Rate 96 H Respiratory Rate 20 Blood Pressure 131/92 H Pulse Oximetry 94 L Intake & Output 08/18/18 08/19/18 08/19/18 18:59 06:59 18:59 Intake Total 450 / 450 480 / 480 Output Total 100 / 100 Balance 450 / 450 380 / 380 Weight 55 kg Intake: Oral 450 / 450 480 / 480 Output: Urine 100 / 100 Other: # Voids 1 Date of Last Bowel Movement 08/16/18 Narrative: GENERAL: Thin built, chronically ill-appearing female. SKIN: Warm and dry. Right hand with a small area of erythema, likely phlebitis from recent IV site--improving. HEAD: Atraumatic. Normocephalic. EYES: Pupils equal and round. No scleral icterus. No injection or drainage. ENT: No nasal bleeding or discharge. Mucous membranes pink and moist. NECK: Trachea midline. No JVD. CARDIOVASCULAR: Regular rate and rhythm. RESPIRATORY: Essentially clear, no wheezing. Minimally diminished at bases. GASTROINTESTINAL: Abdomen distended. Positive for ascites. Normoactive BS x 3 MUSCULOSKELETAL: Extremities without clubbing, cyanosis, or edema. No obvious deformities. NEUROLOGICAL: Awake, alert oriented x3. No focal deficits. PSYCHIATRIC: Anxious, refusing care. Does not appear to have good insight into her medical problems. Results - Labs CBC & Chem 7: 08/17/18 07:32 08/17/18 07:32 - Procedures 07/14 paracentesis Perm cath Assessment and Plan - Assessment (1) IV drug abuse Code(s): F19.10 - Other psychoactive substance abuse, uncomplicated Status: Acute (2) Endocarditis Code(s): I38 - Endocarditis, valve unspecified Status: Acute (3) Sepsis Code(s): A41.9 - Sepsis, unspecified organism Status: Resolved (4) End-stage renal disease (ESRD) Code(s): N18.6 - End stage renal disease Status: Acute (5) Ascites Code(s): R18.8 - Other ascites Status: Acute (6) Acute kidney injury Code(s): N17.9 - Acute kidney failure, unspecified Status: Acute - Plan 28-year-old female with infective tricuspid valve endocarditis and multiorgan dysfunction secondary to endocarditis. remains in heart failure and volume overload, and associated organ failure, including severe renal failure requiring renal replacement therapy. continue to daily pull fluid by HD. Broad spectrum abx. overall prognosis is quite poor given history of leaving AMA: she will likely not survive if she continues to leave AMA. Competed treatment for urinary cisco. Completed ~6 week regimen of IV ancef for MSSA bacteremia on . Infective tricuspid valve endocarditis Moderate tricuspid valve regurgitation Mixed septic and cardiogenic shock secondary to infective endocarditis- resolving. Bedside echo shows large tricuspid regurgitation with moderate to severe TR With noncompliance and multiple AMA discharges, Not a candidate for valve replacement until she can complete antibiotic therapy and demonstrate medical compliance by not leaving AMA. -Per ID patient, completed Ancef for MSSA Sinus tachycardia Heart rate trending up -low-dose Lopressor 2.5 mg p.o. twice daily -HR improving End-stage renal disease -Patient came with outside hospital dialysis access in place. -Perm cath in place, nephrology following, appreciate assistance -Continue renal diet with fluid restriction 1.5L -Nephrology following, trying to obtain review outside medical records so that she can be eventually approved for routine dialysis tricuspid regurgitation. Seen on outside echo BNP above 5000 (07/21), obviously affected by renal failure. Ascites is likely secondary CHF. -Continue Lasix 40 mg p.o.daily Ascites Secondary to severe renal injury and suspected CHF Paracentesis 07/17 with 2.1L removed paracentesis 08/11 with 2.8 L. -continue Lasix -refused today -Complaints of increased abdominal distention, abdominal ultrasound done. Spoke to tech yesterday, per rad. not enough fluid to drain. C/O sob, tachycardic Sats 95 on RA Refused lasix yesterday -PCXR 08/18, likely CHF -was given Lasix 20 mg IVP, pt -continue duonebs PRN -improved today, no rales. -took po lasix today IV drug dependence -prn oxycodone to prevent withdrawal Thrombocytopenia Platelets noted trending down, from 200 on 08/05/2018 to 106 08/17 -Stopped heparin, patient has been refusing. -follow CBC GI Prophylaxis-pepcid DVT Prophylaxis - SCDs DC heparin, pt. thrombocytopenic, coagulopathic INR 1.6. CM working on proceeding with disability process. Needs Dx of chronic/ESRD to arrange for transitional HD which nephrology is pursuing. Repeat labs in the morning Code Status: Full code Discussed Condition With: RN, pt, CM Discharge Planning: Patient waiting for nephrology to clear, patient not end-stage renal disease yet. (2) Endocarditis Qualifiers: Endocarditis type: infective Infective endocarditis organism: bacterial Chronicity: acute Qualified Code(s): I33.0 - Acute and subacute infective endocarditis (5) Ascites Qualifiers: Ascites type: other type Qualified Code(s): R18.8 - Other ascites
[2018-08-19 16:55] LABS: Baso # (Auto) 0.1 th/mm3 (0.0-0.2); Baso % (Auto) 1.1 % (0.0-2.0); Eos # (Auto) 0.1 th/mm3 (0.0-0.4); Eos % (Auto) 1.1 % (0.0-4.0); Hematocrit 36.9 % (35.0-46.0); Hemoglobin 11.5 gm/dL (11.6-15.3); Lymph # (Auto) 3.4 th/mm3 (1.0-4.8); Lymph % (Auto) 44.2 % (9.0-44.0); Mean Corpuscular HGB Conc 31.2 % (32.0-36.0); Mean Corpuscular Hemoglobin 30.5 pg (27.0-34.0); Mean Corpuscular Volume 97.8 fL (80.0-100.0); Mono # (Auto) 0.7 th/mm3 (0.0-0.9); Mono % (Auto) 8.9 % (0.0-8.0); Neut # (Auto) 3.5 th/mm3 (1.8-7.7); Neut % (Auto) 44.7 % (16.0-70.0); Platelet Count 151 th/mm3 (150-450); Red Blood Count 3.78 mil/mm3 (4.00-5.30); Red Cell Distribution Width 22.9 % (11.6-17.2); White Blood Count 7.8 th/mm3 (4.0-11.0)
[2018-08-19 17:52] LABS: Albumin 1.9 g/dL (3.4-5.0); Carbon Dioxide 26.8 meq/L (21.0-32.0); Potassium 5.3 meq/L (3.5-5.1)
[2018-08-19 17:53] LABS: Phosphorus 3.5 mg/dL (2.5-4.9)
[2018-08-19] MEDS: Heparin 10,000 UNITS/10 ML Vial (for IV use) OTHER PRN (18:52)
[2018-08-19] MEDS: Sodium Chloride 0.9% 2 ML Flush BID IV.FLUSH SCH (21:57)
[2018-08-20] MEDS: Famotidine 20 MG Tablet PO SCH ×2 (08:22→21:36)
[2018-08-20] MEDS: FLUoxetine 10 MG Capsule PO SCH (08:22)
[2018-08-20] MEDS: Metoprolol Tartrate 25 MG Tablet PO SCH ×2 (08:24→21:36)
[2018-08-20] MEDS: Furosemide 40 MG Tablet PO SCH (08:24)
[2018-08-20] MEDS: Sodium Chloride 0.9% 2 ML Flush BID IV.FLUSH SCH ×3 (08:28→21:36)
[2018-08-20 11:41] LABS: Hemoglobin 12.8 gm/dL (11.6-15.3); Mean Corpuscular HGB Conc 30.4 % (32.0-36.0); Mean Corpuscular Hemoglobin 30.3 pg (27.0-34.0); Mean Corpuscular Volume 99.5 fL (80.0-100.0); Mean Platelet Volume 9.1 fL (7.0-11.0); Platelet Count 175 th/mm3 (150-450); Red Blood Count 4.22 mil/mm3 (4.00-5.30); Red Cell Distribution Width 23.6 % (11.6-17.2)
[2018-08-20 11:49] LABS: INR 1.5 Ratio; Prothrombin Time 15.2 sec (9.8-11.6)
[2018-08-20 12:04] LABS: Calcium 8.6 mg/dL (8.5-10.1); Potassium 5.5 meq/L (3.5-5.1)
--- NOTE | 2018-08-20 14:03 | P.PNNP ---
Subjective Interval history: thristy today Physical Exam Vital signs: Vital Signs 08/19/18 16:00 08/19/18 20:00 08/19/18 22:22 Temperature 97.8 F 97.9 F Pulse Rate 95 H 89 Respiratory Rate 20 16 Blood Pressure 126/79 121/71 Pulse Oximetry 95 96 96 08/20/18 00:00 08/20/18 01:00 08/20/18 04:12 Temperature 97.2 F L 97.2 F L 98.1 F Pulse Rate 94 H 86 84 Respiratory Rate 16 16 16 Blood Pressure 117/82 113/85 98/65 L Pulse Oximetry 94 L 94 L 94 L 08/20/18 06:12 08/20/18 08:00 08/20/18 08:37 Temperature 97.6 F Pulse Rate 91 H 95 H 79 Respiratory Rate 20 18 21 Blood Pressure 113/79 Pulse Oximetry 95 08/20/18 12:00 Temperature 98.8 F Pulse Rate 93 H Respiratory Rate 18 Blood Pressure 106/81 Pulse Oximetry 96 Intake & Output 08/19/18 08/20/18 08/20/18 18:59 06:59 18:59 Intake Total 480 / 480 580 / 580 Output Total 3150 / 3150 150 / 150 Balance -2670 / -2670 430 / 430 Weight 53 kg Intake: Oral 480 / 480 580 / 580 Output: Urine 150 / 150 150 / 150 Hemodialysis Amount 3000 / 3000 Other: # Voids 1 Date of Last Bowel Movement 08/16/18 08/19/18 08/20/18 # Bowel Movements 1 - Constitutional no acute distress - Routine HEENT Exam Head: Present: normocephalic Eye: Present: EOMI ENT: Present: mucous membranes moist - Routine Neck Exam Present: supple - Routine Respiratory Exam Present: CTA bilaterally - Routine Cardiovascular Exam Present: RRR - Routine Abdominal Exam Present: soft - Routine Extremities Exam Present: vascular access - Routine Skin Exam Present: intact - Routine Neurological Exam Present: alert - Detailed Neurological Exam: Coma Scale Eye Opening: Spontaneous - Routine Psychiatric Exam Present: normal affect Assessment and Plan - Assessment (1) Acute kidney injury Code(s): N17.9 - Acute kidney failure, unspecified Status: Acute Plan: Acute kidney injury requiring hemodialysis Patient has sepsis with hx of IVDA, developed TED 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 Hemodialysis Wednesday, Wednesday, and Wednesday Plan Avoid nephrotoxins including IV contrast and gadolinium. Continue renal diet and fluid restriction. Hemodialysis done yesterday with 3L UF. Plan next HD Wednesday Will follow BMP and UOP. No improvement in the renal function as of yet. (2) Endocarditis Code(s): I38 - Endocarditis, valve unspecified Status: Acute Qualifiers: Endocarditis type: infective Infective endocarditis organism: bacterial Chronicity: acute Qualified Code(s): I33.0 - Acute and subacute infective endocarditis Plan: Antibiotics completed. (3) Hyperkalemia Code(s): E87.5 - Hyperkalemia Status: Acute Plan: Labs in AM
--- NOTE | 2018-08-20 15:21 | P.PN ---
Subjective Interval history: Follow up for endocarditis, ESRD: Patient seen and examined, patient very anxious. States she wants to go home. Wants to go to her mother's house. Explained that we need to arrange dialysis once we get clearance from [facility]. Patient states that she will come to the hospital to have dialysis if needed. I explained to her that she will need to be on dialysis at least 3 days a week. At this time, it is unclear if her kidneys will recover. States "are you trying to kill me?". "I don't want to live like this". I asked patient if she was thinking of harming herself, she would not look at me and asked me to call her mother. Physical Exam Vital signs: Vital Signs 08/19/18 16:00 08/19/18 20:00 08/19/18 22:22 Temperature 97.8 F 97.9 F Pulse Rate 95 H 89 Respiratory Rate 20 16 Blood Pressure 126/79 121/71 Pulse Oximetry 95 96 96 08/20/18 00:00 08/20/18 01:00 08/20/18 04:12 Temperature 97.2 F L 97.2 F L 98.1 F Pulse Rate 94 H 86 84 Respiratory Rate 16 16 16 Blood Pressure 117/82 113/85 98/65 L Pulse Oximetry 94 L 94 L 94 L 08/20/18 06:12 08/20/18 08:00 08/20/18 08:37 Temperature 97.6 F Pulse Rate 91 H 95 H 79 Respiratory Rate 20 18 21 Blood Pressure 113/79 Pulse Oximetry 95 08/20/18 12:00 Temperature 98.8 F Pulse Rate 93 H Respiratory Rate 18 Blood Pressure 106/81 Pulse Oximetry 96 Intake & Output 08/19/18 08/20/18 08/20/18 18:59 06:59 18:59 Intake Total 480 / 480 580 / 580 Output Total 3150 / 3150 150 / 150 Balance -2670 / -2670 430 / 430 Weight 53 kg Intake: Oral 480 / 480 580 / 580 Output: Urine 150 / 150 150 / 150 Hemodialysis Amount 3000 / 3000 Other: # Voids 1 Date of Last Bowel Movement 08/16/18 08/19/18 08/20/18 # Bowel Movements 1 Narrative: GENERAL: Thin built, chronically ill-appearing female. SKIN: Warm and dry. Right hand with a small area of erythema, likely phlebitis from recent IV site--improving. HEAD: Atraumatic. Normocephalic. EYES: Pupils equal and round. No scleral icterus. No injection or drainage. ENT: No nasal bleeding or discharge. Mucous membranes pink and moist. NECK: Trachea midline. No JVD. CARDIOVASCULAR: Regular rate and rhythm. RESPIRATORY: Essentially clear, no wheezing. Minimally diminished at bases. GASTROINTESTINAL: Abdomen distended. Positive for ascites. Normoactive BS x 3 MUSCULOSKELETAL: Extremities without clubbing, cyanosis, or edema. No obvious deformities. NEUROLOGICAL: Awake, alert oriented x3. No focal deficits. PSYCHIATRIC: Anxious Results - Labs CBC & Chem 7: 08/20/18 11:05 08/20/18 11:05 Laboratory Results - last 24 hr 08/19/18 08/19/18 08/20/18 16:30 16:30 11:05 WBC 7.8 8.0 RBC 3.78 L 4.22 Hgb 11.5 L 12.8 Hct 36.9 42.0 MCV 97.8 99.5 MCH 30.5 30.3 MCHC 31.2 L 30.4 L RDW 22.9 H 23.6 H Plt Count 151 D 175 MPV 9.0 9.1 Neut % (Auto) 44.7 Lymph % (Auto) 44.[address] [place] % (Auto) 8.9 H Eos % (Auto) 1.1 Baso % (Auto) 1.1 Neut # (Auto) 3.5 Lymph # (Auto) 3.4 [place] # (Auto) 0.7 Eos # (Auto) 0.1 Baso # (Auto) 0.1 WBC Differential . Differential Comment Auto diff final PT INR Sodium 134 L Potassium 5.3 H Chloride 97 L Carbon Dioxide 26.8 Anion Gap 10 BUN 45 H Creatinine 3.36 H Estimated GFR 16 L Random Glucose 92 Calcium 8.0 L Phosphorus 3.5 Albumin 1.9 L 08/20/18 08/20/18 11:05 11:05 WBC RBC Hgb Hct MCV MCH MCHC RDW Plt Count MPV Neut % (Auto) Lymph % (Auto) [place] % (Auto) Eos % (Auto) Baso % (Auto) Neut # (Auto) Lymph # (Auto) [place] # (Auto) Eos # (Auto) Baso # (Auto) WBC Differential Differential Comment PT 15.2 H INR 1.5 Sodium 131 L Potassium 5.5 H Chloride 96 L Carbon Dioxide 25.0 Anion Gap 10 BUN 41 H Creatinine 3.12 H Estimated GFR 18 L Random Glucose 97 Calcium 8.6 Phosphorus Albumin - Procedures 07/14 paracentesis Perm cath Assessment and Plan - Assessment (1) IV drug abuse Code(s): F19.10 - Other psychoactive substance abuse, uncomplicated Status: Acute (2) Endocarditis Code(s): I38 - Endocarditis, valve unspecified Status: Acute (3) Sepsis Code(s): A41.9 - Sepsis, unspecified organism Status: Resolved (4) End-stage renal disease (ESRD) Code(s): N18.6 - End stage renal disease Status: Acute (5) Ascites Code(s): R18.8 - Other ascites Status: Acute (6) Acute kidney injury Code(s): N17.9 - Acute kidney failure, unspecified Status: Acute - Plan 28-year-old female with infective tricuspid valve endocarditis and multiorgan dysfunction secondary to endocarditis. remains in heart failure and volume overload, and associated organ failure, including severe renal failure requiring renal replacement therapy. continue to daily pull fluid by HD. Broad spectrum abx. overall prognosis is quite poor given history of leaving AMA: she will likely not survive if she continues to leave AMA. Competed treatment for urinary cisco. Completed ~6 week regimen of IV ancef for MSSA bacteremia on . Infective tricuspid valve endocarditis Moderate tricuspid valve regurgitation Mixed septic and cardiogenic shock secondary to infective endocarditis- resolving. Bedside echo shows large tricuspid regurgitation with moderate to severe TR With noncompliance and multiple AMA discharges, Not a candidate for valve replacement until she can complete antibiotic therapy and demonstrate medical compliance by not leaving AMA. -Per ID patient, completed Ancef for MSSA Sinus tachycardia Heart rate trending up -low-dose Lopressor 2.5 mg p.o. twice daily -HR improving End-stage renal disease -Patient came with outside hospital dialysis access in place. -Perm cath in place, nephrology following, appreciate assistance -Continue renal diet with fluid restriction 1.5L -Nephrology following, trying to obtain review outside medical records so that she can be eventually approved for routine dialysis tricuspid regurgitation. Seen on outside echo BNP above 5000 (07/21), obviously affected by renal failure. Ascites is likely secondary CHF. -Continue Lasix 40 mg p.o.daily Ascites Secondary to severe renal injury and suspected CHF Paracentesis 07/17 with 2.1L removed paracentesis 08/11 with 2.8 L. -continue Lasix -refused today -Complaints of increased abdominal distention, abdominal ultrasound done. Spoke to tech yesterday, per rad. not enough fluid to drain. C/O sob, tachycardic Sats 95 on RA Refused lasix yesterday -PCXR 08/18, likely CHF -was given Lasix 20 mg IVP -continue duonebs PRN -improved, continue po Lasix Hyperkalemia Potassium keeps trending up, 5.3>> 5.5. Had dialysis yesterday -Repeat BMP in the morning We will give Kayexalate 30 g p.o. now IV drug dependence -prn oxycodone to prevent withdrawal Thrombocytopenia Platelets noted trending down, from 200 on 08/05/2018 to 106 08/17 -Stopped heparin, patient has been refusing. -platelets coming up, 175. Depressed, likely situational pt. verbalizing she doesn't want to live like this -will have psych evaluate GI Prophylaxis-pepcid DVT Prophylaxis - SCDs DC heparin, pt. thrombocytopenic, coagulopathic INR 1.5 CM working on proceeding with disability process. Needs Dx of chronic/ESRD to arrange for transitional HD which nephrology is pursuing. Repeat labs in the morning Code Status: Full code Discussed Condition With: RN, pt Discharge Planning: Patient waiting for nephrology to clear, patient not end-stage renal disease yet. (2) Endocarditis Qualifiers: Endocarditis type: infective Infective endocarditis organism: bacterial Chronicity: acute Qualified Code(s): I33.0 - Acute and subacute infective endocarditis (5) Ascites Qualifiers: Ascites type: other type Qualified Code(s): R18.8 - Other ascites
[2018-08-20] MEDS ORDERED: Sodium Polystyrene Sulfonate/Sorbitol Liq 15 GM/60 ML UDC PO ONE (15:30)
[2018-08-20] MEDS ORDERED: Sodium Polystyrene Sulfonate Powder 15 GM Bottle PO ONE (18:00)
[2018-08-21] MEDS: Metoprolol Tartrate 25 MG Tablet PO SCH ×2 (09:48→22:20)
[2018-08-21] MEDS: FLUoxetine 10 MG Capsule PO SCH (09:49)
[2018-08-21] MEDS: Famotidine 20 MG Tablet PO SCH ×2 (09:49→22:20)
[2018-08-21] MEDS: Furosemide 40 MG Tablet PO SCH (09:49)
[2018-08-21] MEDS: Sodium Chloride 0.9% 2 ML Flush BID IV.FLUSH SCH ×2 (10:11→22:19)
--- NOTE | 2018-08-21 13:27 | P.PN ---
Subjective Interval history: Follow up for endocarditis, ESRD: Patient seen and examined, patient very anxious, continuously asking for DuoNeb's. Sats are 97% on 2 L. No wheezing. Patient has been educated multiple times and continues to ask for treatments. Heart rate at times elevated. Patient appears anxious. Very childish in her behavior, indicates she wants to go home. Physical Exam Vital signs: Vital Signs 08/20/18 16:00 08/20/18 19:43 08/20/18 19:45 Temperature 98.7 F Pulse Rate 113 H 94 H Respiratory Rate 18 17 Blood Pressure 108/81 Pulse Oximetry 98 98 08/20/18 20:00 08/21/18 00:00 08/21/18 03:44 Temperature 97.1 F L 97.6 F Pulse Rate 109 H 104 H 107 H Respiratory Rate 20 20 16 Blood Pressure 115/88 124/80 Pulse Oximetry 96 92 L 08/21/18 08:00 08/21/18 09:11 08/21/18 12:00 Temperature 99.0 F 98.1 F Pulse Rate 102 H 92 H 92 H Respiratory Rate 22 23 14 Blood Pressure 134/96 H 116/90 Pulse Oximetry 98 96 Intake & Output 08/20/18 08/21/18 08/21/18 18:59 06:59 18:59 Weight 56.4 kg Other: # Voids 1 Date of Last Bowel Movement 08/20/18 Narrative: GENERAL: Thin built, chronically ill-appearing female. SKIN: Warm and dry. Right hand with a small area of erythema, likely phlebitis from recent IV site--improving. HEAD: Atraumatic. Normocephalic. EYES: Pupils equal and round. No scleral icterus. No injection or drainage. ENT: No nasal bleeding or discharge. Mucous membranes pink and moist. NECK: Trachea midline. No JVD. CARDIOVASCULAR: Regular rate and rhythm. RESPIRATORY: Essentially clear, no wheezing. Minimally diminished at bases. GASTROINTESTINAL: Abdomen distended. Positive for ascites. Normoactive BS x 3 MUSCULOSKELETAL: Extremities without clubbing, cyanosis, or edema. No obvious deformities. NEUROLOGICAL: Awake, alert oriented x3. No focal deficits. PSYCHIATRIC: Anxious Results - Labs CBC & Chem 7: 08/20/18 11:05 08/20/18 11:05 - Procedures 07/14 paracentesis Perm cath Assessment and Plan - Assessment (1) IV drug abuse Code(s): F19.10 - Other psychoactive substance abuse, uncomplicated Status: Acute (2) Endocarditis Code(s): I38 - Endocarditis, valve unspecified Status: Acute (3) Sepsis Code(s): A41.9 - Sepsis, unspecified organism Status: Resolved (4) End-stage renal disease (ESRD) Code(s): N18.6 - End stage renal disease Status: Acute (5) Ascites Code(s): R18.8 - Other ascites Status: Acute (6) Acute kidney injury Code(s): N17.9 - Acute kidney failure, unspecified Status: Acute - Plan 28-year-old female with infective tricuspid valve endocarditis and multiorgan dysfunction secondary to endocarditis. remains in heart failure and volume overload, and associated organ failure, including severe renal failure requiring renal replacement therapy. continue to daily pull fluid by HD. Broad spectrum abx. overall prognosis is quite poor given history of leaving AMA: she will likely not survive if she continues to leave AMA. Competed treatment for urinary cisco. Completed ~6 week regimen of IV ancef for MSSA bacteremia on . Infective tricuspid valve endocarditis Moderate tricuspid valve regurgitation Mixed septic and cardiogenic shock secondary to infective endocarditis- resolving. Bedside echo shows large tricuspid regurgitation with moderate to severe TR With noncompliance and multiple AMA discharges, Not a candidate for valve replacement until she can complete antibiotic therapy and demonstrate medical compliance by not leaving AMA. -Per ID patient, completed Ancef for MSSA Sinus tachycardia Heart rate trending up -low-dose Lopressor 2.5 mg p.o. twice daily -HR improving End-stage renal disease -Patient came with outside hospital dialysis access in place. -Perm cath in place, nephrology following, appreciate assistance -Continue renal diet with fluid restriction 1.5L -Nephrology following tricuspid regurgitation. Seen on outside echo BNP above 5000 (07/21), obviously affected by renal failure. Ascites is likely secondary CHF. -Continue Lasix 40 mg p.o.daily Ascites Secondary to severe renal injury and suspected CHF Paracentesis 07/17 with 2.1L removed paracentesis 08/11 with 2.8 L. -Stable, continue with Lasix C/O sob, tachycardic Sats 95 on RA Refused lasix yesterday -PCXR 08/18, likely CHF -was given Lasix 20 mg IVP -continue duonebs PRN -improved, continue po Lasix Hyperkalemia Potassium keeps trending up, 5.3>> 5.5. given Kayexalate 30 g p.o. 08/20, refused labs today IV drug dependence -prn oxycodone to prevent withdrawal Thrombocytopenia Platelets noted trending down, from 200 on 08/05/2018 to 106 08/17 -Stopped heparin, patient has been refusing. -platelets coming up, 175. Depressed, likely situational pt. verbalizing she doesn't want to live like this Anxious -Psych consult pending -We will add Xanax 0.25 mg p.o. every 8 as needed for anxiety GI Prophylaxis-pepcid DVT Prophylaxis - SCDs DC heparin, pt. thrombocytopenic, coagulopathic INR 1.5 CM working on proceeding with disability process. Needs Dx of chronic/ESRD to arrange for transitional HD which nephrology is pursuing. Refused labs today's Pulled out IV, okay to keep out for now Change Zofran to p.o. as needed Code Status: Full code Discussed Condition With: RN, pt Discharge Planning: Patient waiting for nephrology to clear, patient not end-stage renal disease yet. (2) Endocarditis Qualifiers: Endocarditis type: infective Infective endocarditis organism: bacterial Chronicity: acute Qualified Code(s): I33.0 - Acute and subacute infective endocarditis (5) Ascites Qualifiers: Ascites type: other type Qualified Code(s): R18.8 - Other ascites
--- NOTE | 2018-08-21 13:33 | P.PNNP ---
Subjective Interval history: sleepy today, no acute complaints Physical Exam Vital signs: Vital Signs 08/20/18 16:00 08/20/18 19:43 08/20/18 19:45 Temperature 98.7 F Pulse Rate 113 H 94 H Respiratory Rate 18 17 Blood Pressure 108/81 Pulse Oximetry 98 98 08/20/18 20:00 08/21/18 00:00 08/21/18 03:44 Temperature 97.1 F L 97.6 F Pulse Rate 109 H 104 H 107 H Respiratory Rate 20 20 16 Blood Pressure 115/88 124/80 Pulse Oximetry 96 92 L 08/21/18 08:00 08/21/18 09:11 08/21/18 12:00 Temperature 99.0 F 98.1 F Pulse Rate 102 H 92 H 92 H Respiratory Rate 22 23 14 Blood Pressure 134/96 H 116/90 Pulse Oximetry 98 96 08/21/18 13:17 Temperature Pulse Rate Respiratory Rate Blood Pressure Pulse Oximetry 96 Intake & Output 08/20/18 08/21/18 08/21/18 18:59 06:59 18:59 Weight 56.4 kg Other: # Voids 1 Date of Last Bowel Movement 08/20/18 - Constitutional no acute distress - Routine HEENT Exam Head: Present: normocephalic Eye: Present: EOMI ENT: Present: mucous membranes moist - Routine Neck Exam Present: supple - Routine Respiratory Exam Present: CTA bilaterally - Routine Cardiovascular Exam Present: RRR - Routine Abdominal Exam Present: soft - Routine Skin Exam Present: intact - Routine Neurological Exam Present: alert - Detailed Neurological Exam: Coma Scale Eye Opening: Spontaneous - Routine Psychiatric Exam Present: normal affect Assessment and Plan - Assessment (1) Acute kidney injury Code(s): N17.9 - Acute kidney failure, unspecified Status: Acute Plan: Acute kidney injury requiring hemodialysis Patient has sepsis with hx of IVDA, developed TED 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 Hemodialysis Wednesday, Wednesday, and Wednesday Plan Volume status stable Given Kayexalate today, K running on higher side. Otherwise stable. Avoid nephrotoxins including IV contrast and gadolinium. Continue renal diet and fluid restriction. Hemodialysis done Wednesday with 3L UF. Plan next HD Wednesday Will follow BMP and UOP. No improvement in the renal function as of yet. (2) Endocarditis Code(s): I38 - Endocarditis, valve unspecified Status: Acute Qualifiers: Endocarditis type: infective Infective endocarditis organism: bacterial Chronicity: acute Qualified Code(s): I33.0 - Acute and subacute infective endocarditis Plan: Antibiotics completed. (3) Hyperkalemia Code(s): E87.5 - Hyperkalemia Status: Acute Plan: Labs in AM
[2018-08-21] MEDS: ALPRAZolam 0.25 MG Tablet PO PRN (13:45)
[2018-08-21 15:13] LABS: Hematocrit 38.5 % (35.0-46.0); Hemoglobin 12.1 gm/dL (11.6-15.3); Mean Corpuscular HGB Conc 31.3 % (32.0-36.0); Mean Corpuscular Hemoglobin 30.7 pg (27.0-34.0); Mean Corpuscular Volume 97.9 fL (80.0-100.0); Mean Platelet Volume 9.1 fL (7.0-11.0); Platelet Count 189 th/mm3 (150-450); Red Blood Count 3.94 mil/mm3 (4.00-5.30); Red Cell Distribution Width 22.9 % (11.6-17.2); White Blood Count 9.5 th/mm3 (4.0-11.0)
[2018-08-21 15:40] LABS: Albumin 1.9 g/dL (3.4-5.0); Alkaline Phosphatase 396 U/L (45-117); Anion Gap 12 meq/L (5-15); Aspartate Aminotransferase 21 U/L (15-37); Blood Urea Nitrogen 56 mg/dL (7-18); Calcium 8.3 mg/dL (8.5-10.1); Carbon Dioxide 23.8 meq/L (21.0-32.0); Chloride 94 meq/L (98-107); Glomerular Filtration Rate 14 mL/min (>89); Glucose,Random 77 mg/dL (74-106); Magnesium 2.1 mg/dL (1.5-2.5); Phosphorus 4.4 mg/dL (2.5-4.9); Potassium 5.7 meq/L (3.5-5.1); Sodium 130 meq/L (136-145); Total Protein 7.1 g/dL (6.4-8.2)
--- NOTE | 2018-08-21 18:57 | P.CONPSY ---
Provisional Diagnosis Admission Date: July 13, 2018 20:34 [place] I.: Adjustment Disorder with mixed disturbance of emotions and conduct Intravenous drug abuse [place] III.: ESRD, endocarditis, ascites History of Present Illness Service: psychiatry Consult date: 08/21/18 Reason for Consult: evaluate for depression Primary Care Provider: UNKNOWN Chief Complaint: fever History of Present Illness: Pt is a 28 YOWF currently admitted to hospitalist service secondary to ESRD, endocarditis, ascites. Pt has hx of IVDA and has left hospital care AMA multiple times per primary team. Primary team reports that pt has been irritable and uncooperative with care. Team reports that she has been increasingly withdrawn and yesterday told primary team that she did not want to live "like this" for the rest of her life. She refused to further engage with primary team and psychiatry was consulted to evaluate for possible depression. Pt refuses interview with psychiatrist and is resistant to attempts to engage. She states that she will not speak to psychiatrist today, but will consider allowing interview tomorrow. She denies SI/HI. She closes eyes and refuses to further speak with psychiatrist. Chart was reviewed and pt was started on fluoxetine 10mg PO QAM by primary team on 07/22/2018 for anxiety at request of mother. PMFSH - History History Provided By: Patient - Medical History Medical History: Medical History (Last Reviewed 08/21/18 @ 18:53 by Mya Price MD) Cholecystitis (Acute) Asthma (Acute) Endocarditis Hemodialysis patient - Surgical History Surgical History: Surgical History (Last Reviewed 08/21/18 @ 18:53 by Mya Price MD) H/O tooth extraction History of dental surgery - Family History Family History: Family History (Last Reviewed 08/21/18 @ 18:53 by Mya Price MD) Father Family history of cancer Mother Family history of acute myocardial infarction - Tobacco History Second Hand Smoke Exposure: No Tobacco Use In Past 30 Days: No Smoking Status: Former smoker Tobacco Type: Cigarettes - Alcohol History How Often Do You Have a Drink Containing Alcohol: Never - Substance Use History Substance History: Active Abuse - Substance Use Type Heroin Status: Active Route Used: Intravenously Reason for Use: Get High - Travel History Recent Travel in the [place] Within the Last 8 Weeks: No Recent Travel Out of the Country Within the Last 8 Weeks: No - Immunization History Tetanus Immunization: <5 Years Hx Influenza Vaccine This Season: No Medications and Allergies Active Medications: Active Medications Acetaminophen (Tylenol) 650 mg PO Q6H PRN PRN Reason: TEMPERATURE > 101 F Last Admin: 08/13/18 00:45 Dose: 650 mg Acetaminophen (Tylenol) 650 mg PO UNSCH PRN PRN Reason: SEE LABEL COMMENTS Al Hydroxide/Mg Hydroxide (Milk Of [place]) 30 ml PO DAILY PRN PRN Reason: CONSTIPATION Albuterol (Duoneb Neb (Prn)) 1 ampul NEB Q2HR NEB PRN PRN Reason: WHEEZING Last Admin: 08/21/18 09:11 Dose: 1 ampul Alprazolam (Xanax) 0.25 mg PO Q6H PRN PRN Reason: ANXIETY Last Admin: 08/21/18 13:45 Dose: 0.25 mg Bisacodyl (Dulcolax Supp) 10 mg RECTAL DAILY PRN PRN Reason: if no BM in last 24h Dextrose (D50w Syringe) 50 ml IV.PUSH UNSCH PRN PRN Reason: PER HYPOGLYCEMIA PROTOCOL Famotidine (Pepcid) 10 mg PO BID [facility] Last Admin: 08/21/18 09:49 Dose: 10 mg Fluoxetine HCl (Prozac) 10 mg PO DAILY [facility] Last Admin: 08/21/18 09:49 Dose: 10 mg Furosemide (Lasix) 40 mg PO DAILY [facility] Last Admin: 08/21/18 09:49 Dose: 40 mg Gelatin (Gelfoam 12 Mm/7 Mm Topical) 1 foam TOPICAL PRN PRN PRN Reason: help stop bleeding from site Gentamicin Sulfate (Gentamicin Inj) 20 mg OTHER WITH DIALYSIS PRN PRN Reason: Dwell Gentamycin Lock Last Admin: 08/19/18 18:53 Dose: 20 mg Glucagon (Glucagon Inj) 1 mg OTHER UNSCH PRN PRN Reason: FOR HYPOGLYCEMIA PROTOCOL Heparin Sodium (Porcine) (Heparin Inj) 1,000 units OTHER WITH DIALYSIS PRN PRN Reason: Dwell Heparin to Fill Catheter Last Admin: 08/19/18 18:52 Dose: 1,000 units Heparin Sodium (Porcine) (Heparin Inj) 8,000 units OTHER WITH DIALYSIS PRN PRN Reason: for machine prime Albumin Human (Flexbumin 25% Inj) 100 mls @ 60 mls/hr IV.SIG WITH DIALYSIS PRN PRN Reason: hypotension / volume replace Sodium Chloride (Ns Inj) 1,000 mls @ 0 mls/hr OTHER .Q0M PRN PRN Reason: for prime and rinse back Sodium Chloride (Ns Inj) 1,000 mls @ 200 mls/hr OTHER .Q5H PRN PRN Reason: for dialyzer flush PRN Sodium Chloride (Ns Inj) 1,000 mls @ 0 mls/hr IV.CONT .Q0M PRN PRN Reason: hypotension / volume replace Mannitol (Mannitol Inj) 12.5 gm IV.PUSH UNSCH PRN PRN Reason: hypotension / volume replace Metoprolol Tartrate (Lopressor) 12.5 mg PO BID [facility] Last Admin: 08/21/18 09:48 Dose: 12.5 mg Miscellaneous (Pill Splitter) 1 each OTHER PRN PRN PRN Reason: SEE LABEL COMMENTS Nitroglycerin (Nitrostat Sl) 0.4 mg SL Q5M PRN PRN Reason: CHEST PAIN Ondansetron HCl (Zofran Inj) 4 mg IV.PUSH UNSCH PRN PRN Reason: NAUSEA OR VOMITING Ondansetron HCl (Zofran Odt) 4 mg PO Q6H PRN PRN Reason: NAUSEA Oxycodone HCl (Roxicodone) 5 mg PO Q4H PRN PRN Reason: pain >5 Last Admin: 08/21/18 09:48 Dose: 5 mg Sodium Chloride (Ns Flush) 5 ml IV.FLUSH PRN PRN PRN Reason: flush each lumen during HD Sodium Chloride (Ns Flush) 2 ml IV.FLUSH BID [facility] Last Admin: 08/21/18 10:11 Dose: 2 ml Sodium Chloride (Ns Flush) 2 ml IV.FLUSH PRN PRN PRN Reason: FLUSH AFTER USING IV ACCESS Last Admin: 08/20/18 11:12 Dose: 2 ml Allergies Allergy/AdvReac Type Severity Reaction Status Date / Time sweet potato Allergy Severe Hives Verified 05/29/18 19:49 amoxicillin Allergy Intermediate SWELLING, Verified 05/29/18 19:49 HIVES penicillin G Allergy Intermediate Hives Verified 05/29/18 19:49 Home Medications Medication Instructions Recorded Confirmed Type No Known Home Medications 05/04/18 07/13/18 History Exam Vital signs: Vital Signs 08/20/18 19:43 08/20/18 19:45 08/20/18 20:00 Temperature 97.1 F L Pulse Rate 94 H 109 H Respiratory Rate 17 20 Blood Pressure 115/88 Pulse Oximetry 98 96 08/21/18 00:00 08/21/18 03:44 08/21/18 08:00 Temperature 97.6 F 99.0 F Pulse Rate 104 H 107 H 102 H Respiratory Rate 20 16 22 Blood Pressure 124/80 134/96 H Pulse Oximetry 92 L 99 08/21/18 09:11 08/21/18 12:00 08/21/18 13:17 Temperature 98.1 F Pulse Rate 92 H 92 H Respiratory Rate 23 14 Blood Pressure 116/90 Pulse Oximetry 96 96 Intake & Output 08/20/18 08/21/18 08/21/18 18:59 06:59 18:59 Intake Total 500 / 500 Output Total 100 / 100 Balance 400 / 400 Weight 56.4 kg Intake: Oral 500 / 500 Output: Urine 100 / 100 Other: # Voids 1 Date of Last Bowel Movement 08/20/18 08/21/18 # Bowel Movements 1 Mental Status Examination Appearance: Disheveled Consciousness: Alert Orientation: x4 Motor Activity: Other (lying in bed) Speech: Unremarkable Language: Adequate Fund of Knowledge: Adequate Attention and Concentration: Adequate Memory: Unremarkable Mood: Irritable Affect: Irritable Thought Process & Associations: Intact Thought Content: Appropriate Hallucination Type: None Delusion Type: None Suicidal Ideation: No Suicidal Plan: No Suicidal Intention: No Homicidal Ideation: No Homicidal Plan: No Homicidal Intention: No Insight: Poor Judgment: Poor Assessment and Plan - Assessment (1) Adjustment disorder with mixed disturbance of emotions and conduct Code(s): F43.25 - Adjustment disorder with mixed disturbance of emotions and conduct Status: Acute (2) IV drug abuse Code(s): F19.10 - Other psychoactive substance abuse, uncomplicated Status: Acute - Plan Plan: Estimated LOS: [] days Psychiatry service will f/u with pt tomorrow to attempt to engage in interview. Justification for Continued Inpatient Stay: medical conditions
[2018-08-22] MEDS: FLUoxetine 10 MG Capsule PO SCH (09:03)
[2018-08-22] MEDS: Furosemide 40 MG Tablet PO SCH (09:03)
[2018-08-22] MEDS: Metoprolol Tartrate 25 MG Tablet PO SCH ×2 (09:04→21:25)
[2018-08-22] MEDS: Famotidine 20 MG Tablet PO SCH ×2 (09:04→21:25)
[2018-08-22] MEDS: Sodium Chloride 0.9% 2 ML Flush BID IV.FLUSH SCH ×2 (09:08→22:07)
--- NOTE | 2018-08-22 11:19 | P.PN ---
Subjective Interval history: Follow up for endocarditis, ESRD: Patient seen and examined. Not as anxious today, complains of abdomen feeling distended. Wants to know if it is going to be drained. No chest pain, no shortness of breath. Heart rate in the 70s. Physical Exam Vital signs: Vital Signs 08/21/18 12:00 08/21/18 13:17 08/21/18 20:00 Temperature 98.1 F 97.8 F Pulse Rate 92 H 88 Respiratory Rate 14 18 Blood Pressure 116/90 118/87 Pulse Oximetry 96 96 93 L 08/21/18 21:21 08/22/18 00:00 08/22/18 08:00 Temperature 97.7 F 97.5 F L Pulse Rate 86 74 Respiratory Rate 18 20 Blood Pressure 110/81 122/91 H Pulse Oximetry 95 95 98 Intake & Output 08/21/18 08/22/18 08/22/18 18:59 06:59 18:59 Intake Total 500 / 500 Output Total 100 / 100 Balance 400 / 400 Weight 54.6 kg Intake: Oral 500 / 500 Output: Urine 100 / 100 Other: # Voids 0 Date of Last Bowel Movement 08/21/18 08/21/18 # Bowel Movements 1 1 Narrative: GENERAL: Thin built, chronically ill-appearing female. SKIN: Warm and dry. Right hand with a small area of erythema, likely phlebitis from recent IV site--improving. HEAD: Atraumatic. Normocephalic. EYES: Pupils equal and round. No scleral icterus. No injection or drainage. ENT: No nasal bleeding or discharge. Mucous membranes pink and moist. NECK: Trachea midline. No JVD. CARDIOVASCULAR: Regular rate and rhythm. RESPIRATORY: Essentially clear, no wheezing. Minimally diminished at bases. GASTROINTESTINAL: Abdomen distended. Positive for ascites. Normoactive BS x 3 MUSCULOSKELETAL: Extremities without clubbing, cyanosis, or edema. No obvious deformities. NEUROLOGICAL: Awake, alert oriented x3. No focal deficits. PSYCHIATRIC: flat affect Results - Labs CBC & Chem 7: 08/22/18 13:45 08/22/18 13:45 Laboratory Results - last 24 hr 08/21/18 08/21/18 15:02 15:02 WBC 9.5 RBC 3.94 L Hgb 12.1 Hct 38.5 MCV 97.9 MCH 30.7 MCHC 31.3 L RDW 22.9 H Plt Count 189 MPV 9.1 Sodium 130 L Potassium 5.7 H Chloride 94 L Carbon Dioxide 23.8 Anion Gap 12 BUN 56 H Creatinine 3.76 H Estimated GFR 14 L Random Glucose 77 Calcium 8.3 L Phosphorus 4.4 Magnesium 2.1 Total Bilirubin 1.4 H AST 21 ALT Less than 6 L Alkaline Phosphatase 396 H Total Protein 7.1 Albumin 1.9 L - Procedures 07/14 paracentesis Perm cath Assessment and Plan - Assessment (1) IV drug abuse Code(s): F19.10 - Other psychoactive substance abuse, uncomplicated Status: Acute (2) Endocarditis Code(s): I38 - Endocarditis, valve unspecified Status: Acute (3) Sepsis Code(s): A41.9 - Sepsis, unspecified organism Status: Resolved (4) End-stage renal disease (ESRD) Code(s): N18.6 - End stage renal disease Status: Acute (5) Ascites Code(s): R18.8 - Other ascites Status: Acute (6) Acute kidney injury Code(s): N17.9 - Acute kidney failure, unspecified Status: Acute - Plan 28-year-old female with infective tricuspid valve endocarditis and multiorgan dysfunction secondary to endocarditis. remains in heart failure and volume overload, and associated organ failure, including severe renal failure requiring renal replacement therapy. continue to daily pull fluid by HD. Broad spectrum abx. overall prognosis is quite poor given history of leaving AMA: she will likely not survive if she continues to leave AMA. Competed treatment for urinary cisco. Completed ~6 week regimen of IV ancef for MSSA bacteremia on . Infective tricuspid valve endocarditis Moderate tricuspid valve regurgitation Mixed septic and cardiogenic shock secondary to infective endocarditis- resolving. Bedside echo shows large tricuspid regurgitation with moderate to severe TR With noncompliance and multiple AMA discharges, Not a candidate for valve replacement until she can complete antibiotic therapy and demonstrate medical compliance by not leaving AMA. -Per ID patient, completed Ancef for MSSA Sinus tachycardia Heart rate improved, 70s. -low-dose Lopressor 2.5 mg p.o. twice daily End-stage renal disease -Patient came with outside hospital dialysis access in place. -Perm cath in place, nephrology following, appreciate assistance -Continue renal diet with fluid restriction 1.5L -Nephrology following tricuspid regurgitation. Seen on outside echo BNP above 5000 (07/21), obviously affected by renal failure. Ascites is likely secondary CHF. -Continue Lasix 40 mg p.o.daily Ascites Secondary to severe renal injury and suspected CHF Paracentesis 07/17 with 2.1L removed paracentesis 08/11 with 2.8 L. -Stable, continue with Lasix C/O sob, tachycardic Sats 95 on RA Refused lasix yesterday -PCXR 08/18, likely CHF -was given Lasix 20 mg IVP -continue duonebs PRN -improved, continue po Lasix Hyperkalemia Potassium keeps trending up, 5.3>> 5.5. given Kayexalate 30 g p.o. 08/20 -Potassium 4.4 IV drug dependence -prn oxycodone to prevent withdrawal Thrombocytopenia Platelets noted trending down, from 200 on 08/05/2018 to 106 08/17 -Stopped heparin, patient has been refusing. -platelets coming up, 175. Depressed, likely situational pt. verbalizing she doesn't want to live like this Anxious -Psych attempted to evaluate yesterday, patient refused to speak to them. -Continue Xanax 0.25 mg p.o. every 8 as needed for anxiety -Continue Prozac GI Prophylaxis-pepcid DVT Prophylaxis - SCDs DC heparin, pt. thrombocytopenic, coagulopathic INR 1.5 CM working on proceeding with disability process. Needs Dx of chronic/ESRD to arrange for transitional HD which nephrology is pursuing. Labs reviewed, potassium down Okay to leave IV out, patient pulled out Code Status: Full code Discussed Condition With: RN, pt, CM, LUIGI Barnes, Dr. Armas Discharge Planning: Patient waiting for nephrology to clear, patient not end-stage renal disease yet. (2) Endocarditis Qualifiers: Endocarditis type: infective Infective endocarditis organism: bacterial Chronicity: acute Qualified Code(s): I33.0 - Acute and subacute infective endocarditis (5) Ascites Qualifiers: Ascites type: other type Qualified Code(s): R18.8 - Other ascites
[2018-08-22 14:34] LABS: Hematocrit 37.3 % (35.0-46.0); Hemoglobin 11.5 gm/dL (11.6-15.3); Mean Corpuscular Hemoglobin 30.4 pg (27.0-34.0); Mean Corpuscular Volume 98.8 fL (80.0-100.0); Mean Platelet Volume 9.2 fL (7.0-11.0); Platelet Count 194 th/mm3 (150-450); Red Blood Count 3.77 mil/mm3 (4.00-5.30); Red Cell Distribution Width 22.8 % (11.6-17.2); White Blood Count 7.7 th/mm3 (4.0-11.0)
[2018-08-22 14:36] LABS: Mean Corpuscular HGB Conc 30.7 % (32.0-36.0)
--- NOTE | 2018-08-22 14:48 | P.PNNP ---
Subjective Interval history: Seen during hemodialysis. Patient sleeping. <HerbertDebbie - Last Filed: 08/22/18 14:44> Physical Exam Vital signs: Vital Signs 08/21/18 20:00 08/21/18 21:21 08/22/18 00:00 Temperature 97.8 F 97.7 F Pulse Rate 88 86 Respiratory Rate 18 18 Blood Pressure 118/87 110/81 Pulse Oximetry 93 L 95 95 08/22/18 08:00 08/22/18 12:00 Temperature 97.5 F L 97.2 F L Pulse Rate 74 74 Respiratory Rate 20 20 Blood Pressure 122/91 H 110/80 Pulse Oximetry 98 96 Intake & Output 08/21/18 08/22/18 08/22/18 18:59 06:59 18:59 Intake Total 500 / 500 Output Total 100 / 100 Balance 400 / 400 Weight 54.6 kg Intake: Oral 500 / 500 Output: Urine 100 / 100 Other: # Voids 0 Date of Last Bowel Movement 08/21/18 08/21/18 # Bowel Movements 1 1 Narrative: GENERAL:sleeping SKIN: Warm and dry. Right IJ Perm cath. NECK: Supple, trachea midline. No JVD. CARDIOVASCULAR: Tachycardic. Murmur. RESPIRATORY: Breath sounds equal bilaterally. No accessory muscle use. GASTROINTESTINAL: Abdomen distended. Positive bowel sounds. MUSCULOSKELETAL: No cyanosis, or edema. BACK: Nontender without obvious deformity. <Debbie Godinez - Last Filed: 08/22/18 14:44> Vital signs: Vital Signs 08/23/18 19:55 08/24/18 00:04 08/24/18 07:40 Temperature 98.4 F 97.0 F L Pulse Rate 89 89 89 Respiratory Rate 16 16 28 H Blood Pressure 119/80 113/80 Pulse Oximetry 95 97 97 08/24/18 07:48 08/24/18 08:00 08/24/18 12:00 Temperature 98.9 F 97.5 F L Pulse Rate 89 90 Respiratory Rate 20 18 Blood Pressure 108/77 120/96 H Pulse Oximetry 98 96 95 08/24/18 16:00 08/24/18 17:39 08/24/18 19:04 Temperature 98 F Pulse Rate 88 91 H Respiratory Rate 18 20 Blood Pressure 134/93 H Pulse Oximetry 95 95 Intake & Output 08/24/18 08/24/1808/25/18 06:59 18:59 06:59 Intake Total 60 538 / 538 Output Total 250 / 250 3000 / 3000 Balance -190 / -190 -2462 / -2462 Weight 55 kg Intake: Oral 60 60 538 / 538 Output: Urine 250 / 250 Hemodialysis Amount 3000 / 3000 Other: # Voids 3 Date of Last Bowel Movement 08/21/18 # Bowel Movements 1 <Bhargav Monge - Last Filed: 08/24/18 19:25> Assessment and Plan - Assessment (1) Acute kidney injury Code(s): N17.9 - Acute kidney failure, unspecified Status: Acute Plan: Acute kidney injury requiring hemodialysis Patient has sepsis with hx of IVDA, developed TED possibly from glomerulonephritis/septic emboli Creatinine was noted to 0.81 on May 04, 2018 Hemodialysis started at [facility] on June 26. Hemodialysis Wednesday, Wednesday, and Wednesday Plan Avoid nephrotoxins including IV contrast and gadolinium. Continue renal diet and fluid restriction. Labs with hemodialysis, 1 K bath, will remove fluid as tolerated. Will follow BMP and UOP. No improvement in the renal function as of yet. (2) Endocarditis Code(s): I38 - Endocarditis, valve unspecified Status: Acute Qualifiers: Endocarditis type: infective Infective endocarditis organism: bacterial Chronicity: acute Qualified Code(s): I33.0 - Acute and subacute infective endocarditis Plan: Antibiotics completed. (3) Hyperkalemia Code(s): E87.5 - Hyperkalemia Status: Acute Plan: Labs pending today. Hyperkalemic yesterday. <Debbie Godinez - Last Filed: 08/22/18 14:44> - Assessment (1) Acute kidney injury Code(s): N17.9 - Acute kidney failure, unspecified Status: Acute Plan: Patient seen and examine, agree with above. Continue HD , MWF. Watch for renal recovery. Continue antibiotics as per ID. (2) Endocarditis Code(s): I38 - Endocarditis, valve unspecified Status: Acute Qualifiers: Endocarditis type: infective Infective endocarditis organism: bacterial Chronicity: acute Qualified Code(s): I33.0 - Acute and subacute infective endocarditis (3) Hyperkalemia Code(s): E87.5 - Hyperkalemia Status: Acute <Bhargav Monge - Last Filed: 08/24/18 19:25>
[2018-08-22 14:59] LABS: Albumin 1.6 g/dL (3.4-5.0); Alkaline Phosphatase 338 U/L (45-117); Anion Gap 12 meq/L (5-15); Aspartate Aminotransferase 18 U/L (15-37); Blood Urea Nitrogen 58 mg/dL (7-18); Calcium 8.1 mg/dL (8.5-10.1); Carbon Dioxide 27.9 meq/L (21.0-32.0); Chloride 93 meq/L (98-107); Glomerular Filtration Rate 14 mL/min (>89); Glucose,Random 146 mg/dL (74-106); Phosphorus 4.6 mg/dL (2.5-4.9); Potassium 4.4 meq/L (3.5-5.1); Sodium 133 meq/L (136-145); Total Protein 6.3 g/dL (6.4-8.2)
[2018-08-23] MEDS: FLUoxetine 10 MG Capsule PO SCH (08:01)
[2018-08-23] MEDS: Metoprolol Tartrate 25 MG Tablet PO SCH ×2 (08:01→20:33)
[2018-08-23] MEDS: Famotidine 20 MG Tablet PO SCH ×2 (08:02→20:33)
[2018-08-23] MEDS: Furosemide 40 MG Tablet PO SCH (08:05)
[2018-08-23] MEDS: Sodium Chloride 0.9% 2 ML Flush BID IV.FLUSH SCH ×2 (08:08→20:34)
--- NOTE | 2018-08-23 12:10 | P.PNIM ---
Subjective Interval history: Patient has no complaints at this time. No active chest pain or shortness of breath. Getting dialysis Wednesday. Physical Exam Vital signs: Vital Signs 08/22/18 12:00 08/22/18 20:00 08/22/18 22:03 Temperature 97.2 F L 97.9 F Pulse Rate 74 77 86 Respiratory Rate 20 16 16 Blood Pressure 110/80 110/73 Pulse Oximetry 96 98 98 08/22/18 23:50 08/23/18 03:25 08/23/18 08:00 Temperature 97.3 F L 97.4 F L Pulse Rate 81 80 86 Respiratory Rate 16 17 17 Blood Pressure 114/84 121/77 Pulse Oximetry 96 98 99 08/23/18 08:02 08/23/18 11:38 Temperature Pulse Rate 86 Respiratory Rate 16 Blood Pressure Pulse Oximetry 99 98 Intake & Output 08/22/18 08/23/18 08/23/18 18:59 06:59 18:59 Intake Total 480 / 480 Output Total 300 / 300 Balance -300 / -300 480 / 480 Weight 55 kg Intake: Oral 480 / 480 Output: Urine 300 / 300 Other: # Voids 0 Date of Last Bowel Movement 08/21/18 08/21/18 08/21/18 # Bowel Movements 0 Narrative: GENERAL: This is a well-nourished, well-developed patient, in no apparent distress. CARDIOVASCULAR: Regular rate and rhythm with a 2 out of 6 murmur RESPIRATORY: Clear to auscultation. Breath sounds equal bilaterally. No wheezes , rales, or rhonchi. GASTROINTESTINAL: Abdomen soft, non-tender, mild distention normal active bowel sounds MUSCULOSKELETAL: Extremities without clubbing, cyanosis, trace to 1+ edema NEURO: Alert & Oriented x4 to person, place, time, situation. Moves all ext x4 Results - Labs CBC & Chem 7: 08/22/18 13:45 08/22/18 13:45 Laboratory Results - last 24 hr 08/22/18 08/22/18 13:45 13:45 WBC 7.7 RBC 3.77 L Hgb 11.5 L Hct 37.3 MCV 98.8 MCH 30.4 MCHC 30.7 L RDW 22.8 H Plt Count 194 MPV 9.2 Sodium 133 L Potassium 4.4 D Chloride 93 L Carbon Dioxide 27.9 Anion Gap 12 BUN 58 H Creatinine 3.75 H Estimated GFR 14 L Random Glucose 146 H Calcium 8.1 L Phosphorus 4.6 Magnesium 2.0 Total Bilirubin 1.0 AST 18 ALT Less than 6 L Alkaline Phosphatase 338 H Total Protein 6.3 L D Albumin 1.6 L - Procedures 07/14 paracentesis Perm cath Assessment and Plan - Assessment (1) IV drug abuse Code(s): F19.10 - Other psychoactive substance abuse, uncomplicated Status: Acute (2) Endocarditis Code(s): I38 - Endocarditis, valve unspecified Status: Acute (3) Sepsis Code(s): A41.9 - Sepsis, unspecified organism Status: Resolved (4) End-stage renal disease (ESRD) Code(s): N18.6 - End stage renal disease Status: Acute (5) Ascites Code(s): R18.8 - Other ascites Status: Acute (6) Acute kidney injury Code(s): N17.9 - Acute kidney failure, unspecified Status: Acute - Plan 28-year-old female with infective tricuspid valve endocarditis and multiorgan dysfunction secondary to endocarditis. remains in heart failure and volume overload, and associated organ failure, including severe renal failure requiring renal replacement therapy. continue to daily pull fluid by HD. Broad spectrum abx. overall prognosis is quite poor given history of leaving AMA: she will likely not survive if she continues to leave AMA. Competed treatment for urinary cisco. Completed ~6 week regimen of IV ancef for MSSA bacteremia on . Infective tricuspid valve endocarditis Moderate tricuspid valve regurgitation Mixed septic and cardiogenic shock secondary to infective endocarditis- resolving. Bedside echo shows large tricuspid regurgitation with moderate to severe TR With noncompliance and multiple AMA discharges, Not a candidate for valve replacement until she can complete antibiotic therapy and demonstrate medical compliance by not leaving AMA. -Per ID patient, completed Ancef for MSSA on 08/14 Sinus tachycardia Heart rate improved, 70s. -low-dose Lopressor 12.5 mg p.o. twice daily End-stage renal disease -Patient came with outside hospital dialysis access in place. -Perm cath in place, nephrology following, appreciate assistance -Continue renal diet with fluid restriction 1.5L -Nephrology following Hemodialysis on Wednesday tricuspid regurgitation. Seen on outside echo BNP above 5000 (07/21), obviously affected by renal failure. Ascites is likely secondary CHF. -Continue Lasix 40 mg p.o.daily Ascites Secondary to severe renal injury and suspected CHF Paracentesis 07/17 with 2.1L removed paracentesis 08/11 with 2.8 L. -Stable, continue with Lasix Hyperkalemia resolved given Kayexalate 30 g p.o. 08/20 -Potassium 4.4 on 08/22 IV drug dependence -prn oxycodone to prevent withdrawal Thrombocytopenia Platelets noted trending down, from 200 on 08/05/2018 to 106 08/17 -Stopped heparin, patient has been refusing. -platelets coming up, 146 on 08/22 Depressed, likely situational Anxious -Psych attempted to evaluate 08/21, patient refused to speak to them. -Continue Xanax 0.25 mg p.o. every 8 as needed for anxiety -Continue Prozac GI Prophylaxis-pepcid DVT Prophylaxis - SCDs DC heparin, pt. thrombocytopenic previously, coagulopathic INR 1.5 CM working on proceeding with disability process. Needs Dx of chronic/ESRD to arrange for transitional HD which nephrology is pursuing. Discharge Planning: Await clearance from nephrology and likely will need transitional hemodialysis. (2) Endocarditis Qualifiers: Endocarditis type: infective Infective endocarditis organism: bacterial Chronicity: acute Qualified Code(s): I33.0 - Acute and subacute infective endocarditis (5) Ascites Qualifiers: Ascites type: other type Qualified Code(s): R18.8 - Other ascites
--- NOTE | 2018-08-23 13:49 | P.PNPSY ---
Subjective Remarks: The patient is a 28-year-old woman, with psychiatric history of anxiety, polysubstance dependence including crack cocaine, heroine, cannabis, with infective tricuspid valve endocarditis and multiorgan dysfunction secondary to endocarditis. remains in heart failure and volume overload, and associated organ failure, including severe renal failure requiring renal replacement therapy, who was seen initially by Dr. Price, was quite uncooperative. But today patient, even though is irritable, oppositional, she is able to tell me that she feels better. She says that she has been anxious, and is sleeping poorly at night. She feels quite depressed of being in the hospital, but denies hopelessness, denies helplessness, denies worthlessness. She denies suicidal and homicidal ideation, she denies visual and auditory hallucinations. The patient is fully oriented x3. The patient tells me that she has a psychiatric history of anxiety, which she has not been hospitalized, and she denies previous suicidal attempts. She denies family psychiatric history. Mental Status Examination Appearance: Disheveled Consciousness: Alert Orientation: x4 Motor Activity: Other (lying in bed) Speech: Unremarkable Language: Adequate Fund of Knowledge: Adequate Attention and Concentration: Adequate Memory: Unremarkable Mood: Irritable Affect: Irritable Thought Process & Associations: Intact Thought Content: Appropriate Hallucination Type: None Delusion Type: None Suicidal Ideation: No Suicidal Plan: No Suicidal Intention: No Homicidal Ideation: No Homicidal Plan: No Homicidal Intention: No Insight: Poor Judgment: Poor Assessment and Plan - Assessment (1) Adjustment disorder with mixed disturbance of emotions and conduct Code(s): F43.25 - Adjustment disorder with mixed disturbance of emotions and conduct Status: Acute (2) IV drug abuse Code(s): F19.10 - Other psychoactive substance abuse, uncomplicated Status: Acute - Plan Plan: On psychiatric evaluation today the patient reports continued anxiety, difficulty sleeping at night in the context of hospitalization, pain and craving of drugs. Extensive support, motivational psychoeducation provided. Justification for Continued Inpatient Stay: No admission is indicated.
--- NOTE | 2018-08-23 16:20 | P.PNNP ---
Subjective Interval history: Patient is sleeping with mother at bedside. No acute complaints at this time. <Debbie Godinez - Last Filed: 08/23/18 16:16> Physical Exam Vital signs: Vital Signs 08/22/18 20:00 08/22/18 22:03 08/22/18 23:50 Temperature 97.9 F 97.3 F L Pulse Rate 77 86 81 Respiratory Rate 16 16 16 Blood Pressure 110/73 114/84 Pulse Oximetry 98 98 96 08/23/18 03:25 08/23/18 08:00 08/23/18 08:02 Temperature 97.4 F L Pulse Rate 80 86 Respiratory Rate 17 17 Blood Pressure 121/77 Pulse Oximetry 98 99 99 08/23/18 11:38 08/23/18 12:00 Temperature 97.4 F L Pulse Rate 86 89 Respiratory Rate 16 17 Blood Pressure 122/97 H Pulse Oximetry 98 91 L Intake & Output 08/22/18 08/23/18 08/23/18 18:59 06:59 18:59 Intake Total 480 / 480 Output Total 300 / 300 Balance -300 / -300 480 / 480 Weight 55 kg Intake: Oral 480 / 480 Output: Urine 300 / 300 Other: # Voids 0 Date of Last Bowel Movement 08/21/18 08/21/18 08/21/18 # Bowel Movements 0 Narrative: GENERAL:sleeping SKIN: Warm and dry. Right IJ Perm cath. NECK: Supple, trachea midline. No JVD. CARDIOVASCULAR: Tachycardic. Murmur. RESPIRATORY: Breath sounds equal bilaterally. No accessory muscle use. GASTROINTESTINAL: Abdomen distended. Positive bowel sounds. MUSCULOSKELETAL: No cyanosis, or edema. BACK: Nontender without obvious deformity. <Debbie Godinez - Last Filed: 08/23/18 16:16> Vital signs: Vital Signs 08/23/18 19:55 08/24/18 00:04 08/24/18 07:40 Temperature 98.4 F 97.0 F L Pulse Rate 89 89 89 Respiratory Rate 16 16 28 H Blood Pressure 119/80 113/80 Pulse Oximetry 95 97 97 08/24/18 07:48 08/24/18 08:00 08/24/18 12:00 Temperature 98.9 F 97.5 F L Pulse Rate 89 90 Respiratory Rate 20 18 Blood Pressure 108/77 120/96 H Pulse Oximetry 98 96 95 08/24/18 16:00 08/24/18 17:39 08/24/18 19:04 Temperature 98 F Pulse Rate 88 91 H Respiratory Rate 18 20 Blood Pressure 134/93 H Pulse Oximetry 95 95 Intake & Output 08/24/18 08/24/18 08/25/18 06:59 18:59 06:59 Intake Total 60 / 60 538 / 538 Output Total 250 / 250 3000 / 3000 Balance -190 / -190 -2462 / -2462 Weight 55 kg Intake: Oral 60 60 538 / 538 Output: Urine 250 / 250 Hemodialysis Amount 3000 / 3000 Other: # Voids 3 Date of Last Bowel Movement 08/21/18 # Bowel Movements 1 <Bhargav Monge - Last Filed: 08/24/18 19:44> Assessment and Plan - Assessment (1) Acute kidney injury Code(s): N17.9 - Acute kidney failure, unspecified Status: Acute Plan: Acute kidney injury requiring hemodialysis Patient has sepsis with hx of IVDA, developed TED possibly from glomerulonephritis/septic emboli Creatinine was noted to 0.81 on May 04, 2018 Hemodialysis started at [facility] on June 26. Hemodialysis Wednesday, Wednesday, and Wednesday Plan Avoid nephrotoxins including IV contrast and gadolinium. Continue renal diet and fluid restriction. Hemodialysis tomorrow Will follow BMP and UOP. No improvement in the renal function as of yet. Continue HD 3 times a week. (2) Endocarditis Code(s): I38 - Endocarditis, valve unspecified Status: Acute Qualifiers: Endocarditis type: infective Infective endocarditis organism: bacterial Chronicity: acute Qualified Code(s): I33.0 - Acute and subacute infective endocarditis Plan: Antibiotics completed. (3) Hyperkalemia Code(s): E87.5 - Hyperkalemia Status: Acute Plan: Resolved <Debbie Godinez - Last Filed: 08/23/18 16:16> - Assessment (1) Acute kidney injury Code(s): N17.9 - Acute kidney failure, unspecified Status: Acute Plan: Patient seen and examine, agree with above. Continue HD, and watch for renal recovery. If remain HD dependent for 3 months, will label ESRD. (2) Endocarditis Code(s): I38 - Endocarditis, valve unspecified Status: Acute Qualifiers: Endocarditis type: infective Infective endocarditis organism: bacterial Chronicity: acute Qualified Code(s): I33.0 - Acute and subacute infective endocarditis (3) Hyperkalemia Code(s): E87.5 - Hyperkalemia Status: Acute <Bhargav Monge - Last Filed: 08/24/18 19:44>
[2018-08-23] MEDS: QUEtiapine 25 MG Tablet PO SCH (20:33)
[2018-08-24] MEDS: Furosemide 40 MG Tablet PO SCH (08:49)
[2018-08-24] MEDS: FLUoxetine 10 MG Capsule PO SCH (08:50)
[2018-08-24] MEDS: Famotidine 20 MG Tablet PO SCH ×2 (08:50→20:46)
[2018-08-24] MEDS: Sodium Chloride 0.9% 2 ML Flush BID IV.FLUSH SCH ×2 (08:50→22:29)
[2018-08-24] MEDS: Metoprolol Tartrate 25 MG Tablet PO SCH ×2 (08:50→20:47)
--- NOTE | 2018-08-24 10:18 | P.PNNP ---
Subjective Interval history: Patient sleeping, minimally responding to questions. Hemodialysis planned for today <Debbie Godinez - Last Filed: 08/24/18 10:16> Physical Exam Vital signs: Vital Signs 08/23/18 11:38 08/23/18 12:00 08/23/18 16:00 Temperature 97.4 F L 97.5 F L Pulse Rate 86 89 82 Respiratory Rate 16 17 17 Blood Pressure 122/97 H 114/74 Pulse Oximetry 98 91 L 97 08/23/18 16:40 08/23/18 19:55 08/24/18 00:04 Temperature 98.4 F 97.0 F L Pulse Rate 88 89 89 Respiratory Rate 16 16 16 Blood Pressure 119/80 113/80 Pulse Oximetry 95 97 08/24/18 07:48 08/24/18 08:00 Temperature 98.9 F Pulse Rate 89 Respiratory Rate 17 Blood Pressure 108/77 Pulse Oximetry 98 96 Intake & Output 08/23/18 08/24/18 08/24/18 18:59 06:59 18:59 Intake Total 1000 / 1000 60 / 60 Output Total 250 / 250 Balance 1000 / 1000 -190 / -190 Weight 55 kg Intake: Oral 1000 / 1000 60 / 60 Output: Urine 250 / 250 Other: # Voids 2 Date of Last Bowel Movement 08/21/18 08/21/18 # Bowel Movements 1 1 Narrative: GENERAL:sleeping SKIN: Warm and dry. Right IJ Perm cath. NECK: Supple, trachea midline. No JVD. CARDIOVASCULAR: Tachycardic. Murmur. RESPIRATORY: Breath sounds equal bilaterally. No accessory muscle use. GASTROINTESTINAL: Abdomen distended. Positive bowel sounds. MUSCULOSKELETAL: No cyanosis, or edema. BACK: Nontender without obvious deformity. <Debbie Godinez - Last Filed: 08/24/18 10:16> Vital signs: Vital Signs 08/24/18 20:00 08/25/18 00:00 08/25/18 07:00 Temperature 99.1 F 98.3 F Pulse Rate 97 H 90 109 H Respiratory Rate 18 18 12 Blood Pressure 124/89 111/79 Pulse Oximetry 94 L 95 08/25/18 08:00 08/25/18 10:35 08/25/18 11:47 Temperature 99.9 F H 98.1 F Pulse Rate 99 H 102 H 96 H Respiratory Rate 20 12 20 Blood Pressure 124/96 H 123/95 H Pulse Oximetry 97 95 Intake & Output 08/25/18 08/25/18 08/26/18 06:59 18:59 06:59 Intake Total 220 / 220 1072 / 1072 Output Total 3250 / 3250 Balance 220 / 220 -2178 / -2178 Intake: Oral 220 / 220 1072 / 1072 Output: Urine 250 / 250 Stool 0 / 0 Hemodialysis Amount 3000 / 3000 Other: # Voids 0 0 # Urine Diapers 3 Date of Last Bowel Movement 08/23/18 08/23/18 # Bowel Movements 1 <Bhargav Monge - Last Filed: 08/25/18 19:40> Assessment and Plan - Assessment (1) Acute kidney injury Code(s): N17.9 - Acute kidney failure, unspecified Status: Acute Plan: Acute kidney injury requiring hemodialysis Patient has sepsis with hx of IVDA, 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 Hemodialysis Wednesday, Wednesday, and Wednesday Plan Avoid nephrotoxins including IV contrast and gadolinium. Continue renal diet and fluid restriction. Will follow BMP and UOP. No improvement in the renal function as of yet. Continue HD 3 times a week. Hemodialysis today will remove fluid as tolerated (2) Endocarditis Code(s): I38 - Endocarditis, valve unspecified Status: Acute Qualifiers: Endocarditis type: infective Infective endocarditis organism: bacterial Chronicity: acute Qualified Code(s): I33.0 - Acute and subacute infective endocarditis Plan: Antibiotics completed. (3) Hyperkalemia Code(s): E87.5 - Hyperkalemia Status: Acute Plan: Resolved <Debbie Godinez - Last Filed: 08/24/18 10:16> - Assessment (1) Acute kidney injury Code(s): N17.9 - Acute kidney failure, unspecified Status: Acute Plan: Patient seen and examine, agree with above. Watch for renal recovery. HD continue 3 times a week for now. (2) Endocarditis Code(s): I38 - Endocarditis, valve unspecified Status: Acute Qualifiers: Endocarditis type: infective Infective endocarditis organism: bacterial Chronicity: acute Qualified Code(s): I33.0 - Acute and subacute infective endocarditis (3) Hyperkalemia Code(s): E87.5 - Hyperkalemia Status: Acute <Bhargav Monge - Last Filed: 08/25/18 19:40>
--- NOTE | 2018-08-24 11:05 | P.PNIM ---
Subjective Interval history: Did not want to talk to me. Nursing staff states there is no changes overnight. Physical Exam Vital signs: Vital Signs 08/23/18 11:38 08/23/18 12:00 08/23/18 16:00 Temperature 97.4 F L 97.5 F L Pulse Rate 86 89 82 Respiratory Rate 16 17 17 Blood Pressure 122/97 H 114/74 Pulse Oximetry 98 91 L 97 08/23/18 16:40 08/23/18 19:55 08/24/18 00:04 Temperature 98.4 F 97.0 F L Pulse Rate 88 89 89 Respiratory Rate 16 16 16 Blood Pressure 119/80 113/80 Pulse Oximetry 95 97 08/24/18 07:40 08/24/18 07:48 08/24/18 08:00 Temperature 98.9 F Pulse Rate 89 89 Respiratory Rate 28 H 20 Blood Pressure 108/77 Pulse Oximetry 97 98 96 Intake & Output 08/23/18 08/24/18 08/24/18 18:59 06:59 18:59 Intake Total 1000 / 1000 60 / 60 Output Total 250 / 250 Balance 1000 / 1000 -190 / -190 Weight 55 kg Intake: Oral 1000 / 1000 60 / 60 Output: Urine 250 / 250 Other: # Voids 2 Date of Last Bowel Movement 08/21/18 08/21/18 # Bowel Movements 1 1 Narrative: GENERAL:sleeping SKIN: Warm and dry. Right IJ Perm cath. NECK: Supple, trachea midline. No JVD. CARDIOVASCULAR: Regular rate and rhythm with. Murmur. RESPIRATORY: Breath sounds equal bilaterally. No accessory muscle use. GASTROINTESTINAL: Abdomen soft nontender positive bowel sounds. Results - Labs CBC & Chem 7: 08/22/18 13:45 08/22/18 13:45 - Procedures 07/14 paracentesis Perm cath Assessment and Plan - Assessment (1) IV drug abuse Code(s): F19.10 - Other psychoactive substance abuse, uncomplicated Status: Acute (2) Endocarditis Code(s): I38 - Endocarditis, valve unspecified Status: Acute (3) Sepsis Code(s): A41.9 - Sepsis, unspecified organism Status: Resolved (4) End-stage renal disease (ESRD) Code(s): N18.6 - End stage renal disease Status: Acute (5) Ascites Code(s): R18.8 - Other ascites Status: Acute (6) Acute kidney injury Code(s): N17.9 - Acute kidney failure, unspecified Status: Acute - Plan 28-year-old female with infective tricuspid valve endocarditis and multiorgan dysfunction secondary to endocarditis. Remains in heart failure and volume overload, and associated organ failure, including severe renal failure requiring renal replacement therapy. continue to daily pull fluid by HD. Broad spectrum abx. overall prognosis is quite poor given history of leaving AMA: she will likely not survive if she continues to leave AMA. Completed treatment for urinary cisco. Completed ~6 week regimen of IV ancef for MSSA bacteremia on . Continue current treatment Infective tricuspid valve endocarditis Moderate tricuspid valve regurgitation Mixed septic and cardiogenic shock secondary to infective endocarditis- resolving. Bedside echo shows large tricuspid regurgitation with moderate to severe TR With noncompliance and multiple AMA discharges, Not a candidate for valve replacement until she can complete antibiotic therapy and demonstrate medical compliance by not leaving AMA. -Per ID patient, completed Ancef for MSSA on 08/14 Sinus tachycardia Heart rate improved, . -low-dose Lopressor 12.5 mg p.o. twice daily End-stage renal disease -Patient came with outside hospital dialysis access in place. -Perm cath in place, nephrology following, appreciate assistance -Continue renal diet with fluid restriction 1.5L -Nephrology following Hemodialysis on Wednesday tricuspid regurgitation. Seen on outside echo BNP above 5000 (07/21), obviously affected by renal failure. Ascites is likely secondary CHF. -Continue Lasix 40 mg p.o.daily Ascites Secondary to severe renal injury and suspected CHF Paracentesis 07/17 with 2.1L removed paracentesis 08/11 with 2.8 L. -Stable, continue with Lasix Hyperkalemia resolved given Kayexalate 30 g p.o. 08/20 -Potassium 4.4 on 08/22 IV drug dependence -prn oxycodone to prevent withdrawal Thrombocytopenia Platelets noted trending down, from 200 on 08/05/2018 to 106 08/17 -Stopped heparin, patient has been refusing. -platelets coming up, 194 on 08/22 Depressed, likely situational Anxious -Psych attempted to evaluate 08/21, patient refused to speak to them. -Continue Xanax 0.25 mg p.o. every 8 as needed for anxiety -Continue Prozac GI Prophylaxis-pepcid DVT Prophylaxis - SCDs DC heparin, pt. thrombocytopenic previously in addition to patient refusing, coagulopathic INR 1.5 CM working on proceeding with disability process. Needs Dx of chronic/ESRD to arrange for transitional HD which nephrology is pursuing. Discharge Planning: Await clearance from nephrology and likely will need transitional hemodialysis. (2) Endocarditis Qualifiers: Endocarditis type: infective Infective endocarditis organism: bacterial Chronicity: acute Qualified Code(s): I33.0 - Acute and subacute infective endocarditis (5) Ascites Qualifiers: Ascites type: other type Qualified Code(s): R18.8 - Other ascites
[2018-08-24 15:55] LABS: Hematocrit 34.3 % (35.0-46.0); Hemoglobin 11.3 gm/dL (11.6-15.3); Mean Corpuscular Hemoglobin 32.4 pg (27.0-34.0); Mean Platelet Volume 9.1 fL (7.0-11.0); Platelet Count 178 th/mm3 (150-450); Red Blood Count 3.51 mil/mm3 (4.00-5.30); Red Cell Distribution Width 22.3 % (11.6-17.2); White Blood Count 9.2 th/mm3 (4.0-11.0)
[2018-08-24 16:19] LABS: Albumin 1.9 g/dL (3.4-5.0); Anion Gap 8 meq/L (5-15); Aspartate Aminotransferase 18 U/L (15-37); Blood Urea Nitrogen 56 mg/dL (7-18); Calcium 8.1 mg/dL (8.5-10.1); Carbon Dioxide 30.1 meq/L (21.0-32.0); Chloride 97 meq/L (98-107); Glomerular Filtration Rate 16 mL/min (>89); Glucose,Random 109 mg/dL (74-106); Phosphorus 3.9 mg/dL (2.5-4.9); Sodium 135 meq/L (136-145)
[2018-08-24 16:22] LABS: Alkaline Phosphatase 339 U/L (45-117); Total Protein 6.7 g/dL (6.4-8.2)
[2018-08-24] MEDS: QUEtiapine 25 MG Tablet PO SCH (20:46)
[2018-08-25] MEDS: FLUoxetine 10 MG Capsule PO SCH (08:25)
[2018-08-25] MEDS: Furosemide 40 MG Tablet PO SCH (08:26)
[2018-08-25] MEDS: Metoprolol Tartrate 25 MG Tablet PO SCH ×2 (08:26→22:04)
[2018-08-25] MEDS: Famotidine 20 MG Tablet PO SCH ×2 (08:26→22:03)
[2018-08-25] MEDS: Sodium Chloride 0.9% 2 ML Flush BID IV.FLUSH SCH ×2 (09:33→22:04)
--- NOTE | 2018-08-25 09:38 | P.PNIM ---
Subjective Interval history: No complaints overnight received dialysis yesterday. Physical Exam Vital signs: Vital Signs 08/24/18 12:00 08/24/18 16:00 08/24/18 17:39 Temperature 97.5 F L 98 F Pulse Rate 90 88 Respiratory Rate 18 18 Blood Pressure 120/96 H 134/93 H Pulse Oximetry 95 95 95 08/24/18 19:04 08/24/18 20:00 08/25/18 00:00 Temperature 99.1 F 98.3 F Pulse Rate 91 H 97 H 90 Respiratory Rate 20 18 18 Blood Pressure 124/89 111/79 Pulse Oximetry 94 L 95 08/25/18 07:00 08/25/18 08:00 Temperature 99.9 F H Pulse Rate 109 H 99 H Respiratory Rate 12 20 Blood Pressure 124/96 H Pulse Oximetry 97 Intake & Output 08/24/18 08/25/18 08/25/18 18:59 06:59 18:59 Intake Total 538 / 538 220 / 220 Output Total 3000 / 3000 Balance -2462 / -2462 220 / 220 Intake: Oral 538 / 538 220 / 220 Output: Hemodialysis Amount 3000 / 3000 Other: # Voids 3 0 Date of Last Bowel Movement 08/23/18 08/23/18 Narrative: GENERAL: Well-nourished well-developed white female no acute distress SKIN: Warm and dry. Right IJ Perm cath. NECK: Supple, trachea midline. No JVD. CARDIOVASCULAR: Regular rate and rhythm with 3 out of 6 murmur RESPIRATORY: Breath sounds equal bilaterally. No accessory muscle use. Results - Labs CBC & Chem 7: 08/24/18 13:45 08/24/18 13:45 Laboratory Results - last 24 hr 08/24/18 08/24/18 08/24/18 13:22 13:45 13:45 WBC 9.2 RBC 3.51 L Hgb 11.3 L Hct 34.3 L MCV 98.0 MCH 32.4 MCHC 33.0 RDW 22.3 H Plt Count 178 MPV 9.1 Sodium 135 L Potassium 4.0 Chloride 97 L Carbon Dioxide 30.1 Anion Gap 8 BUN 56 H Creatinine 3.38 H Estimated GFR 16 L POC Glucose 122 H Random Glucose 109 H Calcium 8.1 L Phosphorus 3.9 Magnesium 2.0 Total Bilirubin 0.8 AST 18 ALT Less than 6 L Alkaline Phosphatase 339 H Total Protein 6.7 Albumin 1.9 L 08/24/18 15:59 WBC RBC Hgb Hct MCV MCH MCHC RDW Plt Count MPV Sodium Potassium Chloride Carbon Dioxide Anion Gap BUN Creatinine Estimated GFR POC Glucose 88 Random Glucose Calcium Phosphorus Magnesium Total Bilirubin AST ALT Alkaline Phosphatase Total Protein Albumin - Procedures 07/14 paracentesis Perm cath Assessment and Plan - Assessment (1) IV drug abuse Code(s): F19.10 - Other psychoactive substance abuse, uncomplicated Status: Acute (2) Endocarditis Code(s): I38 - Endocarditis, valve unspecified Status: Acute (3) Sepsis Code(s): A41.9 - Sepsis, unspecified organism Status: Resolved (4) End-stage renal disease (ESRD) Code(s): N18.6 - End stage renal disease Status: Acute (5) Ascites Code(s): R18.8 - Other ascites Status: Acute (6) Acute kidney injury Code(s): N17.9 - Acute kidney failure, unspecified Status: Acute - Plan 28-year-old female with infective tricuspid valve endocarditis and multiorgan dysfunction secondary to endocarditis. Remains in heart failure and volume overload, and associated organ failure, including severe renal failure requiring renal replacement therapy. continue to daily pull fluid by HD. Broad spectrum abx. overall prognosis is quite poor given history of leaving AMA: she will likely not survive if she continues to leave AMA. Completed treatment for urinary cisco. Completed ~6 week regimen of IV ancef for MSSA bacteremia on . Continue current treatment 08/25 Infective tricuspid valve endocarditis Moderate tricuspid valve regurgitation Mixed septic and cardiogenic shock secondary to infective endocarditis- resolving. Bedside echo shows large tricuspid regurgitation with moderate to severe TR With noncompliance and multiple AMA discharges, Not a candidate for valve replacement until she can complete antibiotic therapy and demonstrate medical compliance by not leaving AMA. -Per ID patient, completed Ancef for MSSA on 08/14 Sinus tachycardia Heart rate improved, . -low-dose Lopressor 12.5 mg p.o. twice daily End-stage renal disease -Patient came with outside hospital dialysis access in place. -Perm cath in place, nephrology following, appreciate assistance -Continue renal diet with fluid restriction 1.5L -Nephrology following Hemodialysis on Wednesday tricuspid regurgitation. Seen on outside echo BNP above 5000 (07/21), obviously affected by renal failure. Ascites is likely secondary CHF. -Continue Lasix 40 mg p.o.daily Ascites Secondary to severe renal injury and suspected CHF Paracentesis 07/17 with 2.1L removed paracentesis 08/11 with 2.8 L. -Stable, continue with Lasix Hyperkalemia resolved given Kayexalate 30 g p.o. 08/20 -Potassium 4.4 on 08/22 IV drug dependence -prn oxycodone to prevent withdrawal Thrombocytopenia Platelets noted trending down, from 200 on 08/05/2018 to 106 08/17 -Stopped heparin, patient has been refusing. -platelets coming up, 178 on 08/24 Depressed, likely situational Anxious -Psych attempted to evaluate 08/21, patient refused to speak to them. Re-evaluated on 08/23 and provided psychosocial education and support for her anxiety and depression. -Continue Xanax 0.25 mg p.o. every 8 as needed for anxiety -Continue Prozac GI Prophylaxis-pepcid DVT Prophylaxis - SCDs DC heparin, pt. thrombocytopenic previously in addition to patient refusing, coagulopathic INR 1.5 CM working on proceeding with disability process. Needs Dx of chronic/ESRD to arrange for transitional HD which nephrology is pursuing. Discharge Planning: Await clearance from nephrology and likely will need transitional hemodialysis. (2) Endocarditis Qualifiers: Endocarditis type: infective Infective endocarditis organism: bacterial Chronicity: acute Qualified Code(s): I33.0 - Acute and subacute infective endocarditis (5) Ascites Qualifiers: Ascites type: other type Qualified Code(s): R18.8 - Other ascites
--- NOTE | 2018-08-25 15:59 | P.PNNP ---
Subjective Interval history: Patient sleeping, no acute events overnight. Hemodialysis yesterday tolerated well. <Debbie Godinez - Last Filed: 08/25/18 15:56> Physical Exam Vital signs: Vital Signs 08/24/18 16:00 08/24/18 17:39 08/24/18 19:04 Temperature 98 F Pulse Rate 88 91 H Respiratory Rate 18 20 Blood Pressure 134/93 H Pulse Oximetry 95 95 08/24/18 20:00 08/25/18 00:00 08/25/18 07:00 Temperature 99.1 F 98.3 F Pulse Rate 97 H 90 109 H Respiratory Rate 18 18 12 Blood Pressure 124/89 111/79 Pulse Oximetry 94 L 95 08/25/18 08:00 08/25/18 10:35 08/25/18 11:47 Temperature 99.9 F H 98.1 F Pulse Rate 99 H 102 H 96 H Respiratory Rate 20 12 20 Blood Pressure 124/96 H 123/95 H Pulse Oximetry 97 95 Intake & Output 08/24/18 08/25/18 08/25/18 18:59 06:59 18:59 Intake Total 538 / 538 220 / 220 Output Total 3000 / 3000 Balance -2462 / -2462 220 / 220 Intake: Oral 538 / 538 220 / 220 Output: Hemodialysis Amount 3000 / 3000 Other: # Voids 3 0 Date of Last Bowel Movement 08/23/18 08/23/18 Narrative: . GENERAL:sleeping SKIN: Warm and dry. Right IJ Perm cath. NECK: Supple, trachea midline. No JVD. CARDIOVASCULAR: Tachycardic. Murmur. RESPIRATORY: Breath sounds equal bilaterally. No accessory muscle use. GASTROINTESTINAL: Abdomen distended. Positive bowel sounds. MUSCULOSKELETAL: No cyanosis, or edema. BACK: Nontender without obvious deformity. <Debbie Godinez - Last Filed: 08/25/18 15:56> Vital signs: Vital Signs 08/26/18 20:00 08/27/18 00:00 08/27/18 04:00 Temperature 97.7 F 97.4 F L 98.7 F Pulse Rate 98 H 101 H 95 H Respiratory Rate 18 18 20 Blood Pressure 120/88 127/90 114/98 H Pulse Oximetry 97 99 98 08/27/18 08:00 08/27/18 09:33 08/27/18 12:00 Temperature 97.7 F 97.5 F L Pulse Rate 92 H 78 Respiratory Rate 19 18 Blood Pressure 115/80 111/82 Pulse Oximetry 98 98 96 08/27/18 16:00 08/27/18 18:05 Temperature 98.1 F Pulse Rate 84 Respiratory Rate 18 Blood Pressure 116/79 Pulse Oximetry 97 97 Intake & Output 08/26/18 08/27/18 08/27/18 18:59 06:59 18:59 Intake Total 1600 / 1600 280 / 280 600 / 600 Output Total 200 / 200 Balance 1400 / 1400 280 / 280 600 / 600 Intake: Oral 1600 / 1600 280 / 280 600 / 600 Output: Urine 200 / 200 Other: # Voids 1 3 4 Date of Last Bowel Movement 08/27/18 # Bowel Movements 1 <Bhargav Monge - Last Filed: 08/27/18 18:37> Assessment and Plan - Assessment (1) Acute kidney injury Code(s): N17.9 - Acute kidney failure, unspecified Status: Acute Plan: Acute kidney injury requiring hemodialysis Patient has sepsis with hx of IVDA, 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 Hemodialysis Wednesday, Wednesday, and Wednesday Plan Avoid nephrotoxins including IV contrast and gadolinium. Continue renal diet and fluid restriction. Will follow BMP and UOP. No improvement in the renal function as of yet. Continue HD 3 times a week. If remain HD dependent for 3 months, will label ESRD. Hemodialysis tomorrow ( (2) Endocarditis Code(s): I38 - Endocarditis, valve unspecified Status: Acute Qualifiers: Endocarditis type: infective Infective endocarditis organism: bacterial Chronicity: acute Qualified Code(s): I33.0 - Acute and subacute infective endocarditis Plan: Antibiotics completed. (3) Hyperkalemia Code(s): E87.5 - Hyperkalemia Status: Acute Plan: Resolved <Debbie Godinez - Last Filed: 08/25/18 15:56> - Assessment (1) Acute kidney injury Code(s): N17.9 - Acute kidney failure, unspecified Status: Acute Plan: Patient seen and examine, agree with above. Watch for renal improvement. HD will be in AM. (2) Endocarditis Code(s): I38 - Endocarditis, valve unspecified Status: Acute Qualifiers: Endocarditis type: infective Infective endocarditis organism: bacterial Chronicity: acute Qualified Code(s): I33.0 - Acute and subacute infective endocarditis (3) Hyperkalemia Code(s): E87.5 - Hyperkalemia Status: Acute <Bhargav Monge - Last Filed: 08/27/18 18:37>
[2018-08-25] MEDS: QUEtiapine 25 MG Tablet PO SCH (22:03)
[2018-08-26 07:48] LABS: Hematocrit 39.2 % (35.0-46.0); Hemoglobin 12.1 gm/dL (11.6-15.3); Mean Corpuscular Hemoglobin 30.2 pg (27.0-34.0); Mean Corpuscular Volume 97.6 fL (80.0-100.0); Mean Platelet Volume 8.5 fL (7.0-11.0); Platelet Count 170 th/mm3 (150-450); Red Blood Count 4.02 mil/mm3 (4.00-5.30); Red Cell Distribution Width 21.6 % (11.6-17.2); White Blood Count 8.7 th/mm3 (4.0-11.0)
[2018-08-26 08:10] LABS: Mean Corpuscular HGB Conc 30.9 % (32.0-36.0)
[2018-08-26 08:13] LABS: Alanine Aminotransferase 7 U/L (10-53); Anion Gap 11 meq/L (5-15); Aspartate Aminotransferase 19 U/L (15-37); Blood Urea Nitrogen 49 mg/dL (7-18); Calcium 8.7 mg/dL (8.5-10.1); Carbon Dioxide 24.6 meq/L (21.0-32.0); Chloride 97 meq/L (98-107); Glomerular Filtration Rate 17 mL/min (>89); Glucose,Random 89 mg/dL (74-106); Magnesium 2.2 mg/dL (1.5-2.5); Potassium 4.9 meq/L (3.5-5.1); Sodium 133 meq/L (136-145)
[2018-08-26 08:15] LABS: Alkaline Phosphatase 304 U/L (45-117); Phosphorus 3.9 mg/dL (2.5-4.9); Total Protein 7.1 g/dL (6.4-8.2)
[2018-08-26] MEDS: Famotidine 20 MG Tablet PO SCH ×2 (09:40→23:20)
[2018-08-26] MEDS: FLUoxetine 10 MG Capsule PO SCH (09:45)
[2018-08-26] MEDS: Metoprolol Tartrate 25 MG Tablet PO SCH ×2 (10:20→23:20)
[2018-08-26] MEDS: Furosemide 40 MG Tablet PO SCH (10:20)
[2018-08-26] MEDS: Sodium Chloride 0.9% 2 ML Flush BID IV.FLUSH SCH ×2 (10:21→23:21)
--- NOTE | 2018-08-26 13:22 | P.PNIM ---
Subjective Interval history: Follow-up ineffective tricuspid valve endocarditis, sinus tachycardia, end- stage renal disease, ascites, IVDU, thrombocytopenia. Patient seen and examined laying in bed, irritable, does not want to be bothered. Patient denies any pain, chest pain or shortness of breath. Patient denies abdominal pain, nausea, vomiting, diarrhea or constipation. Patient denies any fever or chills. Patient stated going to dialysis today. Nurse denies any acute complaints. Physical Exam Vital signs: Vital Signs 08/25/18 20:00 08/26/18 00:00 08/26/18 04:40 Temperature 99.9 F H 98.2 F Pulse Rate 96 H 87 Respiratory Rate 19 18 Blood Pressure 128/79 121/76 Pulse Oximetry 95 95 95 08/26/18 08:00 08/26/18 08:49 08/26/18 08:51 Temperature 99.7 F H Pulse Rate 100 H 105 H Respiratory Rate 18 28 H Blood Pressure 108/76 Pulse Oximetry 98 95 08/26/18 12:00 Temperature 98.9 F Pulse Rate 110 H Respiratory Rate 19 Blood Pressure 127/71 Pulse Oximetry 92 L Intake & Output 08/25/18 08/26/18 08/26/18 18:59 06:59 18:59 Intake Total 1072 / 1072 480 / 480 Output Total 3250 / 3250 Balance -2178 / -2178 480 / 480 Weight 55 kg Intake: Oral 1072 / 1072 480 / 480 Output: Urine 250 / 250 Stool 0 / 0 Hemodialysis Amount 3000 / 3000 Other: # Voids 0 1 # Urine Diapers 3 Date of Last Bowel Movement 08/23/18 08/24/18 # Bowel Movements 1 Narrative: GENERAL: Thin appearing female in no apparent distress SKIN: Warm and dry. Right upper chest permacath in place HEAD: Atraumatic. Normocephalic. EYES: Pupils equal and round. No scleral icterus. No injection or drainage. ENT: No nasal bleeding or discharge. Mucous membranes pink and moist. NECK: Trachea midline. No JVD. CARDIOVASCULAR: Regular rate and rhythm. Positive murmur RESPIRATORY: No accessory muscle use. Clear to auscultation. Breath sounds equal bilaterally. GASTROINTESTINAL: Abdomen soft, non-tender, nondistended. Hepatic and splenic margins not palpable. MUSCULOSKELETAL: Extremities without clubbing, cyanosis, or edema. No obvious deformities. NEUROLOGICAL: Awake and alert. No obvious cranial nerve deficits. Generalized weakness, moving all 4 extremities, normal speech PSYCHIATRIC: Irritable mood and affect; insight and judgment poor l. Results - Labs CBC & Chem 7: 08/26/18 06:53 08/26/18 06:53 Laboratory Results - last 24 hr 08/26/18 08/26/18 06:53 06:53 WBC 8.7 RBC 4.02 Hgb 12.1 Hct 39.2 MCV 97.6 MCH 30.2 MCHC 30.9 L RDW 21.6 H Plt Count 170 MPV 8.5 Sodium 133 L Potassium 4.9 D Chloride 97 L Carbon Dioxide 24.6 Anion Gap 11 BUN 49 H Creatinine 3.18 H Estimated GFR 17 L Random Glucose 89 Calcium 8.7 Phosphorus 3.9 Magnesium 2.2 Total Bilirubin 0.9 AST 19 ALT 7 L Alkaline Phosphatase 304 H Total Protein 7.1 Albumin 2.0 L - Procedures 07/14 paracentesis Perm cath Assessment and Plan - Assessment (1) IV drug abuse Code(s): F19.10 - Other psychoactive substance abuse, uncomplicated Status: Acute (2) Endocarditis Code(s): I38 - Endocarditis, valve unspecified Status: Acute (3) Sepsis Code(s): A41.9 - Sepsis, unspecified organism Status: Resolved (4) End-stage renal disease (ESRD) Code(s): N18.6 - End stage renal disease Status: Acute (5) Ascites Code(s): R18.8 - Other ascites Status: Acute (6) Acute kidney injury Code(s): N17.9 - Acute kidney failure, unspecified Status: Acute - Plan This is a 28-year-old female with infective tricuspid valve endocarditis and multiorgan dysfunction secondary to endocarditis. Remains in heart failure and volume overload, and associated organ failure, including severe renal failure requiring renal replacement therapy. continue to daily pull fluid by HD. Broad spectrum abx. overall prognosis is quite poor given history of leaving AMA: she will likely not survive if she continues to leave AMA. Completed treatment for urinary cisco. Completed ~6 week regimen of IV ancef for MSSA bacteremia on 08/14 . Infective tricuspid valve endocarditis Moderate tricuspid valve regurgitation Mixed septic and cardiogenic shock secondary to infective endocarditis- resolving. Bedside echo shows large tricuspid regurgitation with moderate to severe TR With noncompliance and multiple AMA discharges, Not a candidate for valve replacement until she can complete antibiotic therapy and demonstrate medical compliance by not leaving AMA. -Per ID patient, completed Ancef for MSSA on 08/14 -BNP above 5000 (07/21), obviously affected by renal failure. Ascites is likely secondary CHF. -Continue Lasix 40 mg p.o.daily, monitor BMP Sinus tachycardia Heart rate in the high side -Increase Lopressor 25 mg p.o. twice daily Monitor heart rate End-stage renal disease/hyponatremia/hyperkalemia -Patient came with outside hospital dialysis access in place. -Perm cath in place, nephrology following, appreciate assistance -Continue renal diet with fluid restriction 1.5L -Nephrology following -Hemodialysis on Wednesday -Wednesday -Wednesday -Monitor renal function Ascites Secondary to severe renal injury and suspected CHF Paracentesis 07/17 with 2.1L removed paracentesis 08/11 with 2.8 L. -Stable, continue with Lasix, monitor BMP IV drug dependence -prn oxycodone to prevent withdrawal -Counseling given Thrombocytopenia Platelets noted trending down, from 200 on 08/05/2018 to 106 08/17 -Stopped heparin, patient has been refusing. -platelets coming up, 178 on 08/24, 170 on 08/26/2018 -Monitor BMP Depressed, likely situational Anxious -Psych attempted to evaluate 08/21, patient refused to speak to them. -Re-evaluated on 08/23 and provided psychosocial education and support for her anxiety and depression. -Continue Xanax 0.25 mg p.o. every 8 as needed for anxiety -Continue Prozac -Monitor mental status GI Prophylaxis: pepcid DVT Prophylaxis: SCDs DC heparin, pt. thrombocytopenic previously in addition to patient refusing, coagulopathic INR 1.5 Code Status: Full code Discussed Condition With: Patient and nurse Discharge Planning: CM working on proceeding with disability process. Needs Dx of chronic/ESRD to arrange for transitional HD which nephrology is pursuing. (2) Endocarditis Qualifiers: Endocarditis type: infective Infective endocarditis organism: bacterial Chronicity: acute Qualified Code(s): I33.0 - Acute and subacute infective endocarditis (5) Ascites Qualifiers: Ascites type: other type Qualified Code(s): R18.8 - Other ascites
--- NOTE | 2018-08-26 16:44 | P.PNNP ---
Subjective Interval history: Patient seen , alert, no SOB, not eating well. Physical Exam Vital signs: Vital Signs 08/25/18 20:00 08/26/18 00:00 08/26/18 04:40 Temperature 99.9 F H 98.2 F Pulse Rate 96 H 87 Respiratory Rate 19 18 Blood Pressure 128/79 121/76 Pulse Oximetry 95 95 95 08/26/18 08:00 08/26/18 08:49 08/26/18 08:51 Temperature 99.7 F H Pulse Rate 100 H 105 H Respiratory Rate 18 28 H Blood Pressure 108/76 Pulse Oximetry 98 95 08/26/18 12:00 Temperature 98.9 F Pulse Rate 110 H Respiratory Rate 19 Blood Pressure 127/71 Pulse Oximetry 92 L Intake & Output 08/25/18 08/26/18 08/26/18 18:59 06:59 18:59 Intake Total 1072 / 1072 480 / 480 Output Total 3250 / 3250 Balance -2178 / -2178 480 / 480 Weight 55 kg Intake: Oral 1072 / 1072 480 / 480 Output: Urine 250 / 250 Stool 0 / 0 Hemodialysis Amount 3000 / 3000 Other: # Voids 0 1 # Urine Diapers 3 Date of Last Bowel Movement 08/23/18 08/24/18 # Bowel Movements 1 Narrative: . GENERAL:sleeping SKIN: Warm and dry. Right IJ Perm cath. NECK: Supple, trachea midline. No JVD. CARDIOVASCULAR: Tachycardic. Murmur. RESPIRATORY: Breath sounds equal bilaterally. No accessory muscle use. GASTROINTESTINAL: Abdomen distended. Positive bowel sounds. MUSCULOSKELETAL: No cyanosis, or edema. BACK: Nontender without obvious deformity. Assessment and Plan - Assessment (1) Acute kidney injury Code(s): N17.9 - Acute kidney failure, unspecified Status: Acute Plan: Patient has TED, Has been non oliguric. Creatinine is slightly better, still not enough to get her off Dialsysi. Today refusing HD. K is normal, will do HD tomorrow. (2) Endocarditis Code(s): I38 - Endocarditis, valve unspecified Status: Acute Qualifiers: Qualified Code(s): I33.0 - Acute and subacute infective endocarditis Plan: Antibiotics completed. (3) Hyperkalemia Code(s): E87.5 - Hyperkalemia Status: Acute Plan: Resolved
--- NOTE | 2018-08-26 22:28 | P.PN ---
Subjective Interval history: NOT SEEN Physical Exam Vital signs: Vital Signs 08/26/18 00:00 08/26/18 04:40 08/26/18 08:00 Temperature 98.2 F 99.7 F H Pulse Rate 87 100 H Respiratory Rate 18 18 Blood Pressure 121/76 108/76 Pulse Oximetry 95 95 98 08/26/18 08:49 08/26/18 08:51 08/26/18 12:00 Temperature 98.9 F Pulse Rate 105 H 110 H Respiratory Rate 28 H 19 Blood Pressure 127/71 Pulse Oximetry 95 92 L 08/26/18 16:00 08/26/18 17:59 08/26/18 18:33 Temperature 97.5 F L Pulse Rate 99 H 96 H Respiratory Rate 19 18 Blood Pressure 119/88 Pulse Oximetry 97 98 08/26/18 20:00 Temperature 97.7 F Pulse Rate 98 H Respiratory Rate 18 Blood Pressure 120/88 Pulse Oximetry 97 Intake & Output 08/26/18 08/26/18 08/27/18 06:59 18:59 06:59 Intake Total 480 / 480 1600 / 1600 Output Total 200 / 200 Balance 480 / 480 1400 / 1400 Weight 55 kg Intake: Oral 480 / 480 1600 / 1600 Output: Urine 200 / 200 Other: # Voids 1 1 Date of Last Bowel Movement 08/24/18 Narrative: GENERAL: Thin appearing female in no apparent distress SKIN: Warm and dry. Right upper chest permacath in place CARDIOVASCULAR: Regular rate and rhythm. Positive murmur RESPIRATORY: No accessory muscle use. Clear to auscultation. Breath sounds equal bilaterally. GASTROINTESTINAL: Abdomen soft, non-tender, nondistended. MUSCULOSKELETAL: Extremities without clubbing, cyanosis, or edema. No obvious deformities. NEUROLOGICAL: Awake and alert. No obvious cranial nerve deficits. Generalized weakness, moving all 4 extremities, normal speech PSYCHIATRIC: Irritable mood and affect; insight and judgment poor. Results - Labs CBC & Chem 7: 08/26/18 06:53 08/26/18 06:53 Laboratory Results - last 24 hr 08/26/18 08/26/18 06:53 06:53 WBC 8.7 RBC 4.02 Hgb 12.1 Hct 39.2 MCV 97.6 MCH 30.2 MCHC 30.9 L RDW 21.6 H Plt Count 170 MPV 8.5 Sodium 133 L Potassium 4.9 D Chloride 97 L Carbon Dioxide 24.6 Anion Gap 11 BUN 49 H Creatinine 3.18 H Estimated GFR 17 L Random Glucose 89 Calcium 8.7 Phosphorus 3.9 Magnesium 2.2 Total Bilirubin 0.9 AST 19 ALT 7 L Alkaline Phosphatase 304 H Total Protein 7.1 Albumin 2.0 L - Imaging ITS Impressions Abdomen/Pelvis CT 07/13/18 20:07 CONCLUSION: 1. Bibasilar patchy airspace disease and minimal pleural fluid. 2. Moderate amount of diffuse ascites as well as anasarca. 3. Nonobstructive bowel gas pattern with poor delineation of the bowel secondary to anasarca, lack of intravenous and oral contrast. 4. Cardiomegaly. Catheter Placement 07/28/18 00:00 CONCLUSION: 1. Uncomplicated tunneled dialysis catheter placement as above. Central Venous Line 08/01/18 00:00 CONCLUSION: 1. Uncomplicated PermaCath placement as above. Venous Access Device Injection 08/01/18 00:00 CONCLUSION: 1. Intact dialysis catheter. There is a kink in the catheter and it is to be replaced. Paracentesis Ultrasound 08/10/18 00:00 CONCLUSION: 1. Uncomplicated paracentesis Abdomen Ultrasound 08/17/18 00:00 CONCLUSION: 1. Moderate ascites Chest X-Ray 08/18/18 00:00 CONCLUSION: 1. Pulmonary edema pattern with more confluent airspace consolidation in the right mid to lower lung zone. Cannot exclude developing pneumonia or aspiration in the appropriate clinical setting. - Procedures 07/14 paracentesis Perm cath Assessment and Plan - Assessment (1) IV drug abuse Code(s): F19.10 - Other psychoactive substance abuse, uncomplicated Status: Acute (2) Endocarditis Code(s): I38 - Endocarditis, valve unspecified Status: Acute (3) Sepsis Code(s): A41.9 - Sepsis, unspecified organism Status: Resolved (4) End-stage renal disease (ESRD) Code(s): N18.6 - End stage renal disease Status: Acute (5) Ascites Code(s): R18.8 - Other ascites Status: Acute (6) Acute kidney injury Code(s): N17.9 - Acute kidney failure, unspecified Status: Acute - Plan This is a 28-year-old female with infective tricuspid valve endocarditis and multiorgan dysfunction secondary to endocarditis. Remains in heart failure and volume overload, and associated organ failure, including severe renal failure requiring renal replacement therapy. continue to daily pull fluid by HD. Broad spectrum abx. overall prognosis is quite poor given history of leaving AMA: she will likely not survive if she continues to leave AMA. Completed treatment for urinary cisco. Completed ~6 week regimen of IV ancef for MSSA bacteremia on 08/14 . Infective tricuspid valve endocarditis Moderate tricuspid valve regurgitation Mixed septic and cardiogenic shock secondary to infective endocarditis- resolving. Bedside echo shows large tricuspid regurgitation with moderate to severe TR With noncompliance and multiple AMA discharges, Not a candidate for valve replacement until she can complete antibiotic therapy and demonstrate medical compliance by not leaving AMA. -Per ID patient, completed Ancef for MSSA on 08/14 -BNP above 5000 (07/21), obviously affected by renal failure. Ascites is likely secondary to CHF. -Continue Lasix 40 mg p.o.daily, monitor BMP Sinus tachycardia Heart rate in the high side -Increase Lopressor 25 mg p.o. twice daily Monitor heart rate End-stage renal disease/hyponatremia/hyperkalemia -Patient came with outside hospital dialysis access in place. -Perm cath in place, nephrology following, appreciate assistance -Continue renal diet with fluid restriction 1.5L -Nephrology following -Hemodialysis on Wednesday -Wednesday -Wednesday -Monitor renal function Ascites Secondary to severe renal injury and suspected CHF Paracentesis 07/17 with 2.1L removed paracentesis 08/11 with 2.8 L. -Stable, continue with Lasix, monitor BMP IV drug dependence -prn oxycodone to prevent withdrawal -Counseling given Thrombocytopenia Platelets noted trending down, from 200 on 08/05/2018 to 106 08/17 -Stopped heparin, patient has been refusing. -platelets coming up, 178 on 08/24, 170 on 08/26/2018 -Monitor BMP Hep C -o/p f/u Depressed, likely situational Anxious -Psych attempted to evaluate 08/21, patient refused to speak to them. -Re-evaluated on 08/23 and provided psychosocial education and support for her anxiety and depression. -Continue Xanax 0.25 mg p.o. every 8 as needed for anxiety -Continue Prozac -Monitor mental status GI Prophylaxis: pepcid DVT Prophylaxis: SCDs DC heparin, pt. thrombocytopenic previously in addition to patient refusing, coagulopathic INR 1.5 Code Status: Full code Discussed Condition With: Patient and nurse Discharge Planning: CM working on proceeding with disability process. Needs Dx of chronic/ESRD to arrange for transitional HD which nephrology is pursuing. (2) Endocarditis Qualifiers: Endocarditis type: infective Infective endocarditis organism: bacterial Chronicity: acute Qualified Code(s): I33.0 - Acute and subacute infective endocarditis (5) Ascites Qualifiers: Ascites type: other type Qualified Code(s): R18.8 - Other ascites
[2018-08-26] MEDS: QUEtiapine 25 MG Tablet PO SCH (23:20)
[2018-08-27] MEDS: Furosemide 40 MG Tablet PO SCH (09:33)
[2018-08-27] MEDS: FLUoxetine 10 MG Capsule PO SCH (09:33)
[2018-08-27] MEDS: Metoprolol Tartrate 25 MG Tablet PO SCH ×2 (09:33→22:58)
[2018-08-27] MEDS: Famotidine 20 MG Tablet PO SCH ×2 (09:33→22:56)
[2018-08-27] MEDS: Sodium Chloride 0.9% 2 ML Flush BID IV.FLUSH SCH ×2 (09:36→22:57)
--- NOTE | 2018-08-27 11:09 | P.PNNP ---
Subjective Interval history: Sitting up in Bed. Has agreed to go to dialysis today. <Debbie Godinez - Last Filed: 08/27/18 11:02> Physical Exam Vital signs: Vital Signs 08/26/18 12:00 08/26/18 16:00 08/26/18 17:59 Temperature 98.9 F 97.5 F L Pulse Rate 110 H 99 H Respiratory Rate 19 19 Blood Pressure 127/71 119/88 Pulse Oximetry 92 L 97 98 08/26/18 18:33 08/26/18 20:00 08/27/18 00:00 Temperature 97.7 F 97.4 F L Pulse Rate 96 H 98 H 101 H Respiratory Rate 18 18 18 Blood Pressure 120/88 127/90 Pulse Oximetry 97 99 08/27/18 04:00 08/27/18 08:00 08/27/18 09:33 Temperature 98.7 F 97.7 F Pulse Rate 95 H 92 H Respiratory Rate 20 19 Blood Pressure 114/98 H 115/80 Pulse Oximetry 98 98 98 Intake & Output 08/26/18 08/27/18 08/27/18 18:59 06:59 18:59 Intake Total 1600 / 1600 280 / 280 Output Total 200 / 200 Balance 1400 / 1400 280 / 280 Intake: Oral 1600 / 1600 280 / 280 Output: Urine 200 / 200 Other: # Voids 1 3 Date of Last Bowel Movement 08/27/18 # Bowel Movements 1 Narrative: GENERAL: Alert and oriented, in no apparent distress SKIN: Warm and dry. Right upper chest permacath in place CARDIOVASCULAR: Regular rate and rhythm. Positive murmur RESPIRATORY: No accessory muscle use. Clear to auscultation. Breath sounds equal bilaterally. GASTROINTESTINAL: Abdomen soft, non-tender, distended. MUSCULOSKELETAL: Extremities without clubbing, cyanosis, or edema. No obvious deformities. <Debbie Godinez - Last Filed: 08/27/18 11:02> Vital signs: Vital Signs 08/26/18 20:00 08/27/18 00:00 08/27/18 04:00 Temperature 97.7 F 97.4 F L 98.7 F Pulse Rate 98 H 101 H 95 H Respiratory Rate 18 18 20 Blood Pressure 120/88 127/90 114/98 H Pulse Oximetry 97 99 98 08/27/18 08:00 08/27/18 09:33 08/27/18 12:00 Temperature 97.7 F 97.5 F L Pulse Rate 92 H 78 Respiratory Rate 19 18 Blood Pressure 115/80 111/82 Pulse Oximetry 98 98 96 08/27/18 16:00 08/27/18 18:05 Temperature 98.1 F Pulse Rate 84 Respiratory Rate 18 Blood Pressure 116/79 Pulse Oximetry 97 97 Intake & Output 08/27/18 08/27/18 08/28/18 06:59 18:59 06:59 Intake Total 280 / 280 600 / 600 Balance 280 / 280 600 / 600 Intake: Oral 280 / 280 600 / 600 Other: # Voids 3 4 Date of Last Bowel Movement 08/27/18 # Bowel Movements 1 <Bhargav Monge - Last Filed: 08/27/18 19:00> Assessment and Plan - Assessment (1) Acute kidney injury Code(s): N17.9 - Acute kidney failure, unspecified Status: Acute Plan: Acute kidney injury requiring hemodialysis Patient has sepsis with hx of IVDA, developed TED possibly from glomerulonephritis/septic emboli Creatinine was noted to 0.81 on May 04, 2018 Hemodialysis started at [facility] on June 26. Avoid nephrotoxins including IV contrast and gadolinium. If remain HD dependent for 3 months, will label ESRD. Has been on M/W/F hemodialysis scheduled but refused yesterday. Has agreed for dialysis today. Maintain I+O with documented urinary output. Creatinine is slightly better yesterday, still not enough to get her off Dialysis Labs pending today (2) Endocarditis Code(s): I38 - Endocarditis, valve unspecified Status: Acute Qualifiers: Endocarditis type: infective Infective endocarditis organism: bacterial Chronicity: acute Qualified Code(s): I33.0 - Acute and subacute infective endocarditis Plan: Antibiotics completed. (3) Hyperkalemia Code(s): E87.5 - Hyperkalemia Status: Acute Plan: Resolved <Debbie Godinez - Last Filed: 08/27/18 11:02> - Assessment (1) Acute kidney injury Code(s): N17.9 - Acute kidney failure, unspecified Status: Acute Plan: Patient seen and examine, agree with above. She is refusing for HD, I discuss with her, K is 5.7, will give one dose of Kayexalate. (2) Endocarditis Code(s): I38 - Endocarditis, valve unspecified Status: Acute Qualifiers: Endocarditis type: infective Infective endocarditis organism: bacterial Chronicity: acute Qualified Code(s): I33.0 - Acute and subacute infective endocarditis (3) Hyperkalemia Code(s): E87.5 - Hyperkalemia Status: Acute <Bhargav Monge - Last Filed: 08/27/18 19:00>
[2018-08-27 11:21] LABS: Calcium 8.3 mg/dL (8.5-10.1); Carbon Dioxide 23.2 meq/L (21.0-32.0); Potassium 5.2 meq/L (3.5-5.1)
--- NOTE | 2018-08-27 13:00 | P.PNIM ---
Subjective Interval history: The patient was resting in bed. She did not want to be disturbed. She said she will do dialysis this afternoon. She had no acute concerns. Discussed with nursing. Physical Exam Vital signs: Vital Signs 08/26/18 16:00 08/26/18 17:59 08/26/18 18:33 Temperature 97.5 F L Pulse Rate 99 H 96 H Respiratory Rate 19 18 Blood Pressure 119/88 Pulse Oximetry 97 98 08/26/18 20:00 08/27/18 00:00 08/27/18 04:00 Temperature 97.7 F 97.4 F L 98.7 F Pulse Rate 98 H 101 H 95 H Respiratory Rate 18 18 20 Blood Pressure 120/88 127/90 114/98 H Pulse Oximetry 97 99 98 08/27/18 08:00 08/27/18 09:33 Temperature 97.7 F Pulse Rate 92 H Respiratory Rate 19 Blood Pressure 115/80 Pulse Oximetry 98 98 Intake & Output 08/26/18 08/27/18 08/27/18 18:59 06:59 18:59 Intake Total 1600 / 1600 280 / 280 Output Total 200 / 200 Balance 1400 / 1400 280 / 280 Intake: Oral 1600 / 1600 280 / 280 Output: Urine 200 / 200 Other: # Voids 1 3 Date of Last Bowel Movement 08/27/18 # Bowel Movements 1 Narrative: GENERAL: Alert and oriented, in no apparent distress. SKIN: Warm and dry. Right upper chest permacath in place. CARDIOVASCULAR: Regular rate and rhythm. Positive murmur. RESPIRATORY: No accessory muscle use. Clear to auscultation. Breath sounds equal bilaterally. GASTROINTESTINAL: Abdomen soft, non-tender, distended. MUSCULOSKELETAL: Extremities without clubbing, cyanosis, or edema. No obvious deformities. Results - Labs CBC & Chem 7: 08/26/18 06:53 08/27/18 10:21 Laboratory Results - last 24 hr 08/27/18 10:21 Sodium 130 L Potassium 5.2 H Chloride 96 L Carbon Dioxide 23.2 Anion Gap 11 BUN 63 H Creatinine 3.76 H Estimated GFR 14 L Random Glucose 79 Calcium 8.3 L - Procedures 07/14 paracentesis Perm cath Assessment and Plan - Assessment (1) IV drug abuse Code(s): F19.10 - Other psychoactive substance abuse, uncomplicated Status: Acute (2) Endocarditis Code(s): I38 - Endocarditis, valve unspecified Status: Acute (3) Sepsis Code(s): A41.9 - Sepsis, unspecified organism Status: Resolved (4) End-stage renal disease (ESRD) Code(s): N18.6 - End stage renal disease Status: Acute (5) Ascites Code(s): R18.8 - Other ascites Status: Acute (6) Acute kidney injury Code(s): N17.9 - Acute kidney failure, unspecified Status: Acute - Plan This is a 28-year-old female with infective tricuspid valve endocarditis and multiorgan dysfunction secondary to endocarditis. Remains in heart failure and volume overload, and associated organ failure, including severe renal failure requiring renal replacement therapy. continue to daily pull fluid by HD. Broad spectrum abx. overall prognosis is quite poor given history of leaving AMA. Completed treatment for urinary cisco. Completed ~6 week regimen of IV ancef for MSSA bacteremia on 08/14. Infective tricuspid valve endocarditis Moderate tricuspid valve regurgitation Mixed septic and cardiogenic shock secondary to infective endocarditis- resolving. Bedside echo shows large tricuspid regurgitation with moderate to severe TR With noncompliance and multiple AMA discharges, Not a candidate for valve replacement until she can complete antibiotic therapy and demonstrate medical compliance by not leaving AMA. -Per ID patient, completed Ancef for MSSA on 08/14 -BNP above 5000 (07/21), obviously affected by renal failure. Ascites is likely secondary CHF. -Continue Lasix 40 mg p.o.daily, monitor BMP. Sinus tachycardia Heart rate in the high side -Increase Lopressor 25 mg p.o. twice daily Monitor heart rate End-stage renal disease/hyponatremia/hyperkalemia -Patient came with outside hospital dialysis access in place. -Perm cath in place, nephrology following, appreciate assistance -Continue renal diet with fluid restriction 1.5L -Nephrology following -Hemodialysis on Wednesday -Wednesday -Wednesday -Monitor renal function Ascites Secondary to severe renal injury and suspected CHF Paracentesis 07/17 with 2.1L removed paracentesis 08/11 with 2.8 L. -Stable, continue with Lasix, monitor BMP. Continue to assess abdomen. IV drug dependence -prn oxycodone to prevent withdrawal -Counseling given Thrombocytopenia Platelets noted trending down, from 200 on 08/05/2018 to 106 08/17 -Stopped heparin, patient has been refusing. -platelets coming up, 178 on 08/24, 170 on 08/26/2018 -Monitor BMP Depressed, likely situational Anxious -Psych attempted to evaluate 08/21, patient refused to speak to them. -Re-evaluated on 08/23 and provided psychosocial education and support for her anxiety and depression. -Continue Xanax 0.25 mg p.o. every 8 as needed for anxiety -Continue Prozac -Monitor mental status DVT Prophylaxis: SCDs Discharge Planning: CM working on proceeding with disability process. Needs Dx of chronic/ESRD to arrange for transitional HD which nephrology is pursuing. (2) Endocarditis Qualifiers: Endocarditis type: infective Infective endocarditis organism: bacterial Chronicity: acute Qualified Code(s): I33.0 - Acute and subacute infective endocarditis (5) Ascites Qualifiers: Ascites type: other type Qualified Code(s): R18.8 - Other ascites
[2018-08-27 17:46] LABS: Calcium 8.6 mg/dL (8.5-10.1); Carbon Dioxide 22.8 meq/L (21.0-32.0); Potassium 5.7 meq/L (3.5-5.1)
[2018-08-27] MEDS ORDERED: Sodium Polystyrene Sulfonate/Sorbitol Liq 15 GM/60 ML UDC PO ONE (19:05)
[2018-08-27] MEDS: QUEtiapine 25 MG Tablet PO SCH (22:56)
[2018-08-28] MEDS: Metoprolol Tartrate 25 MG Tablet PO SCH ×2 (08:49→21:10)
[2018-08-28] MEDS: Furosemide 40 MG Tablet PO SCH (08:49)
[2018-08-28] MEDS: FLUoxetine 10 MG Capsule PO SCH (08:49)
[2018-08-28] MEDS: Famotidine 20 MG Tablet PO SCH ×2 (08:49→21:10)
[2018-08-28] MEDS: Sodium Chloride 0.9% 2 ML Flush BID IV.FLUSH SCH ×2 (08:55→22:01)
--- NOTE | 2018-08-28 09:52 | P.PNNP ---
Subjective Interval history: Sitting in bed. Reports shortness of breath and abdominal distention. Has refused hemodialysis on Wednesday and Wednesday. <Debbie Godinez - Last Filed: 08/28/18 09:44> Physical Exam Vital signs: Vital Signs 08/27/18 12:00 08/27/18 16:00 08/27/18 18:05 Temperature 97.5 F L 98.1 F Pulse Rate 78 84 Respiratory Rate 18 18 Blood Pressure 111/82 116/79 Pulse Oximetry 96 97 97 08/27/18 20:00 08/27/18 21:23 08/28/18 00:00 Temperature 98.2 F 97.8 F Pulse Rate 81 83 Respiratory Rate 19 16 19 Blood Pressure 106/75 128/96 H Pulse Oximetry 98 96 08/28/18 03:06 Temperature Pulse Rate Respiratory Rate 18 Blood Pressure Pulse Oximetry Intake & Output 08/27/18 08/28/18 08/28/18 18:59 06:59 18:59 Intake Total 600 / 600 476 / 476 Balance 600 / 600 476 / 476 Weight 57.7 kg Intake: Oral 600 / 600 476 / 476 Other: # Voids 4 1 Date of Last Bowel Movement 08/27/18 Narrative: GENERAL: Alert and oriented, in no apparent distress SKIN: Warm and dry. Right upper chest permacath in place CARDIOVASCULAR: Regular rate and rhythm. Positive murmur RESPIRATORY: No accessory muscle use. Clear to auscultation. Breath sounds equal bilaterally. GASTROINTESTINAL: Abdomen soft, non-tender, distended. MUSCULOSKELETAL: Extremities without clubbing, cyanosis, or edema. No obvious deformities. <Debbie Godinez - Last Filed: 08/28/18 09:44> Vital signs: Vital Signs 08/29/18 20:00 08/30/18 00:00 08/30/18 01:45 Temperature 98.5 F 101.7 F H 100.6 F H Pulse Rate 82 88 Respiratory Rate 18 18 Blood Pressure 116/75 106/68 Pulse Oximetry 97 93 L 08/30/18 04:00 08/30/18 04:57 08/30/18 05:45 Temperature 99.0 F 102.6 F H Pulse Rate 94 H 96 H Respiratory Rate 18 20 Blood Pressure 122/82 Pulse Oximetry 96 98 08/30/18 08:00 08/30/18 11:32 08/30/18 16:00 Temperature 100.6 F H 97.9 F 98.0 F Pulse Rate 96 H 70 64 Respiratory Rate 20 18 18 Blood Pressure 113/76 103/70 115/82 Pulse Oximetry 95 95 98 Intake & Output 08/29/18 08/30/18 08/30/18 18:59 06:59 18:59 Intake Total 500 / 500 480 / 480 Output Total 1000 / 1000 900 / 900 Balance -500 / -500 -420 / -420 Weight 55.1 kg Intake: Oral 500 / 500 480 / 480 Output: Urine 400 / 400 900 / 900 Hemodialysis Amount 600 / 600 Other: Date of Last Bowel Movement 08/28/18 <Bhargav Monge - Last Filed: 08/30/18 17:51> Assessment and Plan - Assessment (1) Acute kidney injury Code(s): N17.9 - Acute kidney failure, unspecified Status: Acute Plan: Acute kidney injury requiring hemodialysis Patient has sepsis with hx of IVDA, developed TED possibly from glomerulonephritis/septic emboli Creatinine was noted to 0.81 on May 04, 2018 Hemodialysis started at [facility] on June 26. Avoid nephrotoxins including IV contrast and gadolinium. If remain HD dependent for 3 months, will label ESRD. Has refused hemodialysis for Wednesday and Wednesday. Potassium level is 5.7 yesterday, Kayexalate given X 1 yesterday Labs pending for today, if hyperkalemic will possibly do dialysis today. (2) Endocarditis Code(s): I38 - Endocarditis, valve unspecified Status: Acute Qualifiers: Endocarditis type: infective Infective endocarditis organism: bacterial Chronicity: acute Qualified Code(s): I33.0 - Acute and subacute infective endocarditis Plan: Antibiotics completed. (3) Hyperkalemia Code(s): E87.5 - Hyperkalemia Status: Acute Plan: Labs are pending for today Hyperkalemic today, Kayexalate given yesterday. <Debbie Godinez - Last Filed: 08/28/18 09:44> - Assessment (1) Acute kidney injury Code(s): N17.9 - Acute kidney failure, unspecified Status: Acute Plan: Patient seen and examine, agree with above. Continue HD as needed. Watch for renal recovery. (2) Endocarditis Code(s): I38 - Endocarditis, valve unspecified Status: Acute Qualifiers: Endocarditis type: infective Infective endocarditis organism: bacterial Chronicity: acute Qualified Code(s): I33.0 - Acute and subacute infective endocarditis (3) Hyperkalemia Code(s): E87.5 - Hyperkalemia Status: Acute <Bhargav Monge - Last Filed: 08/30/18 17:51>
--- NOTE | 2018-08-28 11:27 | P.PNIM ---
Subjective Interval history: The patient said that her abdomen was distended and she wanted it drained again. She did not want to go to dialysis. She says it does not help with her stomach. She says the food here is bad. She continues to complain of pain with deep breathing. Physical Exam Vital signs: Vital Signs 08/27/18 12:00 08/27/18 16:00 08/27/18 18:05 Temperature 97.5 F L 98.1 F Pulse Rate 78 84 Respiratory Rate 18 18 Blood Pressure 111/82 116/79 Pulse Oximetry 96 97 97 08/27/18 20:00 08/27/18 21:23 08/28/18 00:00 Temperature 98.2 F 97.8 F Pulse Rate 81 83 Respiratory Rate 19 16 19 Blood Pressure 106/75 128/96 H Pulse Oximetry 98 96 08/28/18 03:06 08/28/18 08:00 08/28/18 10:34 Temperature 97.9 F Pulse Rate 88 88 Respiratory Rate 18 18 18 Blood Pressure 122/89 Pulse Oximetry 97 96 Intake & Output 08/27/18 08/28/18 08/28/18 18:59 06:59 18:59 Intake Total 600 / 600 476 / 476 Balance 600 / 600 476 / 476 Weight 57.7 kg Intake: Oral 600 / 600 476 / 476 Other: # Voids 4 1 Date of Last Bowel Movement 08/27/18 Narrative: GENERAL: Alert and oriented, in no apparent distress SKIN: Warm and dry. Right upper chest permacath in place CARDIOVASCULAR: Regular rate and rhythm. Positive murmur RESPIRATORY: No accessory muscle use. Clear to auscultation. Breath sounds equal bilaterally. GASTROINTESTINAL: Abdomen soft, non-tender, distended. MUSCULOSKELETAL: Extremities without clubbing, cyanosis, or edema. No obvious deformities. Results - Labs CBC & Chem 7: 08/26/18 06:53 08/27/18 16:45 Laboratory Results - last 24 hr 08/27/18 16:45 Sodium 128 L Potassium 5.7 H Chloride 95 L Carbon Dioxide 22.8 Anion Gap 10 BUN 64 H Creatinine 3.86 H Estimated GFR 14 L Random Glucose 96 Calcium 8.6 Assessment and Plan - Assessment (1) IV drug abuse Code(s): F19.10 - Other psychoactive substance abuse, uncomplicated Status: Acute (2) Endocarditis Code(s): I38 - Endocarditis, valve unspecified Status: Acute (3) Sepsis Code(s): A41.9 - Sepsis, unspecified organism Status: Resolved (4) End-stage renal disease (ESRD) Code(s): N18.6 - End stage renal disease Status: Acute (5) Ascites Code(s): R18.8 - Other ascites Status: Acute (6) Acute kidney injury Code(s): N17.9 - Acute kidney failure, unspecified Status: Acute - Plan This is a 28-year-old female with infective tricuspid valve endocarditis and multiorgan dysfunction secondary to endocarditis. Remains in heart failure and volume overload, and associated organ failure, including severe renal failure requiring renal replacement therapy. continue to daily pull fluid by HD. Broad spectrum abx. overall prognosis is quite poor given history of leaving AMA. Completed treatment for urinary cisco. Completed ~6 week regimen of IV ancef for MSSA bacteremia on 08/14. Infective tricuspid valve endocarditis Moderate tricuspid valve regurgitation Mixed septic and cardiogenic shock secondary to infective endocarditis- resolving. Bedside echo shows large tricuspid regurgitation with moderate to severe TR With noncompliance and multiple AMA discharges, Not a candidate for valve replacement until she can complete antibiotic therapy and demonstrate medical compliance by not leaving AMA. -Per ID patient, completed Ancef for MSSA on 08/14 -BNP above 5000 (07/21), obviously affected by renal failure. Ascites is likely secondary CHF. -Continue Lasix 40 mg p.o.daily, monitor BMP. Sinus tachycardia Heart rate in the high side -Increased Lopressor 25 mg p.o. twice daily End-stage renal disease/hyponatremia/hyperkalemia -Patient came with outside hospital dialysis access in place. -Perm cath in place, nephrology following, appreciate assistance -Continue renal diet with fluid restriction 1.5L -Nephrology following -Hemodialysis on Wednesday -Wednesday -Wednesday. Pt currently refusing and has been hyperkalemic. S/p Kayexalate per nephrology. -Monitor renal function Ascites Secondary to severe renal injury and suspected CHF Paracentesis 07/17 with 2.1L removed paracentesis 08/11 with 2.8 L. -Stable, continue with Lasix, monitor BMP. Continue to assess abdomen. Will request repeat paracentesis per pt request. Pleuritic chest pain Pt complains of chest pain with deep breathing. -repeat CXR. IV drug dependence -prn oxycodone to prevent withdrawal -Counseling given Thrombocytopenia Platelets noted trending down, from 200 on 08/05/2018 to 106 08/17 -Stopped heparin, patient has been refusing. -platelets coming up, 178 on 08/24, 170 on 08/26/2018 -Monitor BMP Depressed, likely situational Anxious -Psych attempted to evaluate 08/21, patient refused to speak to them. -Re-evaluated on 08/23 and provided psychosocial education and support for her anxiety and depression. -Continue Xanax 0.25 mg p.o. every 8 as needed for anxiety -Continue Prozac -Monitor mental status DVT Prophylaxis: SCDs Discharge Planning: CM working on proceeding with disability process. Needs Dx of chronic/ESRD to arrange for transitional HD which nephrology is pursuing. (2) Endocarditis Qualifiers: Endocarditis type: infective Infective endocarditis organism: bacterial Chronicity: acute Qualified Code(s): I33.0 - Acute and subacute infective endocarditis (5) Ascites Qualifiers: Ascites type: other type Qualified Code(s): R18.8 - Other ascites
--- NOTE | 2018-08-28 11:59 | XR ---
EXAM DATE: 08/28/2018 11:44 AM EDT AGE/SEX: 28 years / Female INDICATIONS: Evaluate pneumonia CLINICAL DATA: This is the patient's subsequent encounter. Patient reports that signs and symptoms h ave been present for 1 week and indicates a pain score of 0/10. MEDICAL/SURGICAL HISTORY: . Asthma. Hepatitis C None. [place]PAR[place]: [facility] [place] 1[place] S[place] AP, [place]/18/2018. . FINDINGS: Portable AP view of the chest demonstrates enlarged cardiac silhouette. There is a tunneled right IJ dialysis catheter with distal tips in the SVC. Bibasilar airspace consolidation with suspected small effusions are present. Opacity at the left lung base is increased and stable on the right. No pneumot horax is identified. Bones and soft tissues demonstrate no acute finding. CONCLUSION: Bibasilar airspace consolidation, stable on the right and increased on the left. As described previou sly the distribution could be secondary to pulmonary edema but an infectious process could have a sim ilar appearance as could aspiration. There are likely very small bilateral pleural effusions. Electronically signed by: Reinaldo Dover MD 08/28/2018 11:58 AM EDT
[2018-08-28 12:05] LABS: Calcium 8.3 mg/dL (8.5-10.1); Carbon Dioxide 24.5 meq/L (21.0-32.0); Potassium 4.8 meq/L (3.5-5.1)
[2018-08-28] MEDS: QUEtiapine 25 MG Tablet PO SCH (21:10)
[2018-08-28] MEDS: Melatonin 5 MG Tablet PO PRN (21:13)
[2018-08-29] MEDS: Famotidine 20 MG Tablet PO SCH ×2 (09:13→21:12)
[2018-08-29] MEDS: FLUoxetine 10 MG Capsule PO SCH (09:13)
[2018-08-29] MEDS: Metoprolol Tartrate 25 MG Tablet PO SCH ×2 (09:13→21:12)
[2018-08-29] MEDS: Furosemide 40 MG Tablet PO SCH (09:13)
[2018-08-29] MEDS: Sodium Chloride 0.9% 2 ML Flush BID IV.FLUSH SCH ×2 (09:18→21:12)
--- NOTE | 2018-08-29 09:24 | P.PNNP ---
Subjective Interval history: Reports abdominal distention and discomfort. Hemodialysis planned for today. Has refused the past 2 planned hemodialysis. <Debbie Godinez - Last Filed: 08/29/18 09:18> Physical Exam Vital signs: Vital Signs 08/28/18 10:34 08/28/18 12:00 08/28/18 16:00 Temperature 98.4 F 97.2 F L Pulse Rate 88 81 79 Respiratory Rate 18 17 18 Blood Pressure 113/83 115/78 Pulse Oximetry 96 95 91 L 08/28/18 20:00 08/29/18 00:00 08/29/18 08:00 Temperature 98.8 F 98.1 F 97.5 F L Pulse Rate 79 81 79 Respiratory Rate 16 16 17 Blood Pressure 124/85 113/83 112/83 Pulse Oximetry 95 93 L 95 Intake & Output 08/28/18 08/29/18 08/29/18 18:59 06:59 18:59 Intake Total 850 / 850 280 / 280 Output Total 750 / 750 600 / 600 Balance 100 / 100 -320 / -320 Weight 57 kg Intake: Oral 850 / 850 280 / 280 Output: Urine 750 / 750 600 / 600 Other: Date of Last Bowel Movement 08/28/18 08/28/18 # Bowel Movements 1 Narrative: GENERAL: Alert and oriented, in no apparent distress SKIN: Warm and dry. Right upper chest permacath in place CARDIOVASCULAR: Regular rate and rhythm. Positive murmur RESPIRATORY: No accessory muscle use. Clear to auscultation. Breath sounds equal bilaterally. GASTROINTESTINAL: Abdomen soft, non-tender, distended. MUSCULOSKELETAL: Extremities without clubbing, cyanosis, or edema. No obvious deformities. <Debbie Godinez - Last Filed: 08/29/18 09:18> Vital signs: Vital Signs 08/29/18 20:00 08/30/18 00:00 08/30/18 01:45 Temperature 98.5 F 101.7 F H 100.6 F H Pulse Rate 82 88 Respiratory Rate 18 18 Blood Pressure 116/75 106/68 Pulse Oximetry 97 93 L 08/30/18 04:00 08/30/18 04:57 08/30/18 05:45 Temperature 99.0 F 102.6 F H Pulse Rate 94 H 96 H Respiratory Rate 18 20 Blood Pressure 122/82 Pulse Oximetry 96 98 08/30/18 08:00 08/30/18 11:32 08/30/18 16:00 Temperature 100.6 F H 97.9 F 98.0 F Pulse Rate 96 H 70 64 Respiratory Rate 20 18 18 Blood Pressure 113/76 103/70 115/82 Pulse Oximetry 95 95 98 Intake & Output 08/29/18 08/30/18 08/30/18 18:59 06:59 18:59 Intake Total 500 / 500 480 / 480 1070 / 1070 Output Total 1000 / 1000 900 / 900 Balance -500 / -500 -420 / -420 1070 / 1070 Weight 55.1 kg Intake: Oral 500 / 500 480 / 480 1070 / 1070 Output: Urine 400 / 400 900 / 900 Hemodialysis Amount 600 / 600 Other: Date of Last Bowel Movement 08/28/18 <Bhargav Monge - Last Filed: 08/30/18 18:15> Assessment and Plan - Assessment (1) Acute kidney injury Code(s): N17.9 - Acute kidney failure, unspecified Status: Acute Plan: Acute kidney injury requiring hemodialysis. 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 Creatinine was noted to 0.81 on May 04, 2018. Hemodialysis started at [facility] on June 26. If remain HD dependent for 3 months, will label ESRD. Has refused hemodialysis for Wednesday and Wednesday hemodialysis planned for today. Creatinine remains high at 3.89 yesterday but urinary output is improving 1.3L/ 24 hours. Discussed importance of not missing today still dialysis dependent. Avoid nephrotoxins including IV contrast and gadolinium. Labs ordered for AM. (2) Endocarditis Code(s): I38 - Endocarditis, valve unspecified Status: Acute Qualifiers: Endocarditis type: infective Infective endocarditis organism: bacterial Chronicity: acute Qualified Code(s): I33.0 - Acute and subacute infective endocarditis Plan: Antibiotics completed. (3) Hyperkalemia Code(s): E87.5 - Hyperkalemia Status: Acute Plan: No new labs today. Potassium normal yesterday. Labs in AM <Debbie Godinez - Last Filed: 08/29/18 09:18> - Assessment (1) Acute kidney injury Code(s): N17.9 - Acute kidney failure, unspecified Status: Acute Plan: Patient seen and examine, agree with above. Patient has been refusing HD off and on. Now agreed for HD. Watch for renal recovery. (2) Endocarditis Code(s): I38 - Endocarditis, valve unspecified Status: Acute Qualifiers: Endocarditis type: infective Infective endocarditis organism: bacterial Chronicity: acute Qualified Code(s): I33.0 - Acute and subacute infective endocarditis (3) Hyperkalemia Code(s): E87.5 - Hyperkalemia Status: Acute <Bhargav Monge - Last Filed: 08/30/18 18:15>
--- NOTE | 2018-08-29 10:55 | P.PNIM ---
Subjective Interval history: The patient was agreeable with going to dialysis after lunch today. She is looking forward to having her abdominal fluid removed via paracentesis. Discussed with nursing. Physical Exam Vital signs: Vital Signs 08/28/18 12:00 08/28/18 16:00 08/28/18 20:00 Temperature 98.4 F 97.2 F L 98.8 F Pulse Rate 81 79 79 Respiratory Rate 17 18 16 Blood Pressure 113/83 115/78 124/85 Pulse Oximetry 95 91 L 95 08/29/18 00:00 08/29/18 08:00 08/29/18 10:20 Temperature 98.1 F 97.5 F L 98.4 F Pulse Rate 81 79 78 Respiratory Rate 16 17 18 Blood Pressure 113/83 112/83 124/95 H Pulse Oximetry 93 L 95 95 Intake & Output 08/28/18 08/29/18 08/29/18 18:59 06:59 18:59 Intake Total 850 / 850 280 / 280 Output Total 750 / 750 600 / 600 Balance 100 / 100 -320 / -320 Weight 57 kg Intake: Oral 850 / 850 280 / 280 Output: Urine 750 / 750 600 / 600 Other: Date of Last Bowel Movement 08/28/18 08/28/18 # Bowel Movements 1 Narrative: GENERAL: In no apparent distress. SKIN: Warm and dry. Right upper chest permacath in place CARDIOVASCULAR: Regular rate and rhythm. Positive murmur RESPIRATORY: No accessory muscle use. Clear to auscultation. Breath sounds equal bilaterally. GASTROINTESTINAL: Abdomen soft, non-tender, distended. MUSCULOSKELETAL: Extremities without clubbing, cyanosis, or edema. No obvious deformities. NEURO: No gross deficits. PSYCH: Flat affect. Results - Labs CBC & Chem 7: 08/26/18 06:53 08/28/18 11:14 Laboratory Results - last 24 hr 08/28/18 11:14 Sodium 132 L Potassium 4.8 D Chloride 96 L Carbon Dioxide 24.5 Anion Gap 12 BUN 72 H Creatinine 3.89 H Estimated GFR 14 L Random Glucose 116 H Calcium 8.3 L - Imaging Impressions Chest X-Ray 08/28/18 11:25 CONCLUSION: Bibasilar airspace consolidation, stable on the right and increased on the left. As described previously the distribution could be secondary to pulmonary edema but an infectious process could have a similar appearance as could aspiration. There are likely very small bilateral pleural effusions. Assessment and Plan - Assessment (1) IV drug abuse Code(s): F19.10 - Other psychoactive substance abuse, uncomplicated Status: Acute (2) Endocarditis Code(s): I38 - Endocarditis, valve unspecified Status: Acute (3) Sepsis Code(s): A41.9 - Sepsis, unspecified organism Status: Resolved (4) End-stage renal disease (ESRD) Code(s): N18.6 - End stage renal disease Status: Acute (5) Ascites Code(s): R18.8 - Other ascites Status: Acute (6) Acute kidney injury Code(s): N17.9 - Acute kidney failure, unspecified Status: Acute - Plan This is a 28-year-old female with infective tricuspid valve endocarditis and multiorgan dysfunction secondary to endocarditis. Remains in heart failure and volume overload, and associated organ failure, including severe renal failure requiring renal replacement therapy. continue to daily pull fluid by HD. Broad spectrum abx. overall prognosis is quite poor given history of leaving AMA. Completed treatment for urinary cisco. Completed ~6 week regimen of IV ancef for MSSA bacteremia on 08/14. Infective tricuspid valve endocarditis Moderate tricuspid valve regurgitation Mixed septic and cardiogenic shock secondary to infective endocarditis- resolving. Bedside echo shows large tricuspid regurgitation with moderate to severe TR With noncompliance and multiple AMA discharges, Not a candidate for valve replacement until she can complete antibiotic therapy and demonstrate medical compliance by not leaving AMA. -Per ID patient, completed Ancef for MSSA on 08/14 -BNP above 5000 (07/21), obviously affected by renal failure. Ascites is likely secondary CHF. -Continue Lasix 40 mg p.o.daily, monitor BMP. Sinus tachycardia Heart rate in the high side -Increased Lopressor 25 mg p.o. twice daily End-stage renal disease/hyponatremia/hyperkalemia -Patient came with outside hospital dialysis access in place. -Perm cath in place, nephrology following, appreciate assistance -Continue renal diet with fluid restriction 1.5L -Nephrology following -Hemodialysis on Wednesday -Wednesday -Wednesday. Pt currently refusing and has been hyperkalemic. S/p Kayexalate per nephrology. -Monitor renal function Ascites Secondary to severe renal injury and suspected CHF Paracentesis 07/17 with 2.1L removed paracentesis 08/11 with 2.8 L. -repeat paracentesis 08/29. Pleuritic chest pain/ Hypoxemia Pt complains of chest pain with deep breathing. Repeat CXR stable, suggestive of fluid overload. Likely s/t refusing dialysis. -dialysis for volume management. -hold off on antibiotics as afebrile and without leukocytosis. -oxygen and nebs as needed. -incentive spirometry. IV drug dependence -prn oxycodone to prevent withdrawal -Counseling given Thrombocytopenia Platelets noted trending down, from 200 on 08/05/2018 to 106 08/17 -Stopped heparin, patient has been refusing. -platelets coming up, 178 on 08/24, 170 on 08/26/2018 -Monitor BMP Depressed, likely situational Anxious -Psych attempted to evaluate 08/21, patient refused to speak to them. -Re-evaluated on 08/23 and provided psychosocial education and support for her anxiety and depression. -Continue Xanax 0.25 mg p.o. every 8 as needed for anxiety -Continue Prozac -Monitor mental status DVT Prophylaxis: SCDs Discharge Planning: CM working on proceeding with disability process. Needs Dx of chronic/ESRD to arrange for transitional HD which nephrology is pursuing. (2) Endocarditis Qualifiers: Endocarditis type: infective Infective endocarditis organism: bacterial Chronicity: acute Qualified Code(s): I33.0 - Acute and subacute infective endocarditis (5) Ascites Qualifiers: Ascites type: other type Qualified Code(s): R18.8 - Other ascites
--- NOTE | 2018-08-29 13:13 | US ---
EXAM DATE: 08/29/2018 11:32 AM EDT AGE/SEX: 28 years / Female INDICATIONS: Ascites. CLINICAL DATA: This is the patient's subsequent encounter. Patient reports that signs and symptoms h ave been present for 2 days and indicates a pain score of 5/10. MEDICAL/SURGICAL HISTORY: . Asthma. Endocarditis. . Cholecystitis. Tooth extraction. COMPARISON: [facility] [place] [facility], 08/17/2018. . FLUID: Total volume of 1500 cc of clear, yellow fluid was removed. Fluid was discarded. Paracentesis was the rapeutic only. . . TECHNIQUE: Ultrasound guidance for abdominal paracentesis. Paracentesis. The risks, benefits, and alternatives to ultrasound guided paracentesis were explained to the patient in detail including the risk of bleeding and infection. Written and verbal informed consent was obt ained. With the patient on the ultrasound table, ultrasound imaging was used to select the most appropriate approach for paracentesis. Overlying skin was prepped and draped in the usual sterile fashion and wi th a local anesthetic, a dermatotomy was made with an 11 blade scalpel. A 6 [place] But-[id number] ca theter was introduced into the peritoneal cavity and fluid was collected. Post procedure scanning reveals no hematoma or other complication. The patient tolerated the procedu re well and left the ultrasound suite in stable condition. FINDINGS: Adequate fluid for paracentesis. CONCLUSION: 1. Uncomplicated paracentesis. Electronically signed by: Brendon Todd MD 08/29/2018 1:11 PM EDT
[2018-08-29] MEDS: QUEtiapine 25 MG Tablet PO SCH (21:12)
[2018-08-29] MEDS: Melatonin 5 MG Tablet PO PRN (21:12)
[2018-08-29 21:24] LABS: Baso # (Auto) 0.1 th/mm3 (0.0-0.2); Eos # (Auto) 0.1 th/mm3 (0.0-0.4); Eos % (Auto) 0.9 % (0.0-4.0); Lymph # (Auto) 1.3 th/mm3 (1.0-4.8); Lymph % (Auto) 16.4 % (9.0-44.0); Mean Corpuscular HGB Conc 32.4 % (32.0-36.0); Mean Corpuscular Hemoglobin 30.4 pg (27.0-34.0); Mean Corpuscular Volume 93.8 fL (80.0-100.0); Mean Platelet Volume 8.5 fL (7.0-11.0); Mono # (Auto) 0.9 th/mm3 (0.0-0.9); Mono % (Auto) 11.5 % (0.0-8.0); Neut # (Auto) 5.6 th/mm3 (1.8-7.7); Neut % (Auto) 70.2 % (16.0-70.0); Platelet Count 165 th/mm3 (150-450); Red Blood Count 3.94 mil/mm3 (4.00-5.30); Red Cell Distribution Width 20.3 % (11.6-17.2); White Blood Count 7.9 th/mm3 (4.0-11.0)
[2018-08-29 21:29] LABS: INR 1.3 Ratio; Prothrombin Time 13.6 sec (9.8-11.6)
[2018-08-29 22:01] LABS: Calcium 8.1 mg/dL (8.5-10.1); Carbon Dioxide 32.3 meq/L (21.0-32.0); Phosphorus 2.5 mg/dL (2.5-4.9); Potassium 3.6 meq/L (3.5-5.1)
[2018-08-30] MEDS: Acetaminophen 325 MG Tablet PO PRN (05:50)
[2018-08-30] MEDS: Metoprolol Tartrate 25 MG Tablet PO SCH ×2 (08:42→20:32)
[2018-08-30] MEDS: FLUoxetine 10 MG Capsule PO SCH (08:42)
[2018-08-30] MEDS: Famotidine 20 MG Tablet PO SCH ×2 (08:42→20:32)
[2018-08-30] MEDS: Sodium Chloride 0.9% 2 ML Flush BID IV.FLUSH SCH ×2 (08:42→20:33)
[2018-08-30] MEDS: Furosemide 40 MG Tablet PO SCH (08:42)
--- NOTE | 2018-08-30 09:51 | P.PNNP ---
Subjective Interval history: Seen in AM. Hemodialysis and paracentesis yesterday tolerated well. Denies any shortness of breath today. <Debbie Godinez - Last Filed: 08/30/18 15:17> Physical Exam Vital signs: Vital Signs 08/29/18 10:20 08/29/18 10:52 08/29/18 11:18 Temperature 98.4 F 98.9 F Pulse Rate 78 78 Respiratory Rate 18 18 Blood Pressure 124/95 H 111/83 Pulse Oximetry 95 97 96 08/29/18 11:36 08/29/18 12:00 08/29/18 20:00 Temperature 99.0 F 97.5 F L 98.5 F Pulse Rate 80 80 82 Respiratory Rate 18 18 18 Blood Pressure 113/83 110/76 116/75 Pulse Oximetry 94 L 99 97 08/30/18 00:00 08/30/18 01:45 08/30/18 04:00 Temperature 101.7 F H 100.6 F H 99.0 F Pulse Rate 88 94 H Respiratory Rate 18 18 Blood Pressure 106/68 122/82 Pulse Oximetry 93 L 96 08/30/18 04:57 08/30/18 05:45 08/30/18 08:00 Temperature 102.6 F H 100.6 F H Pulse Rate 96 H 96 H Respiratory Rate 20 20 Blood Pressure 113/76 Pulse Oximetry 98 95 Intake & Output 08/29/18 08/30/18 08/30/18 18:59 06:59 18:59 Intake Total 500 / 500 480 / 480 Output Total 1000 / 1000 900 / 900 Balance -500 / -500 -420 / -420 Weight 55.1 kg Intake: Oral 500 / 500 480 / 480 Output: Urine 400 / 400 900 / 900 Hemodialysis Amount 600 / 600 Other: Date of Last Bowel Movement 08/28/18 Narrative: GENERAL: In no apparent distress. SKIN: Warm and dry. Right upper chest permacath in place CARDIOVASCULAR: Regular rate and rhythm. Positive murmur RESPIRATORY: No accessory muscle use. Clear to auscultation. Breath sounds equal bilaterally. GASTROINTESTINAL: Abdomen soft, non-tender, distended. MUSCULOSKELETAL: Extremities without clubbing, cyanosis, or edema. No obvious deformities. NEURO: No gross deficits. PSYCH: Flat affect. <Debbie Godinez - Last Filed: 08/30/18 15:17> Vital signs: Vital Signs 08/30/18 20:00 08/31/18 00:00 08/31/18 08:00 Temperature 97.3 F L 97.4 F L 97.9 F Pulse Rate 72 72 75 Respiratory Rate 18 17 18 Blood Pressure 123/93 H 110/77 111/83 Pulse Oximetry 95 100 95 08/31/18 09:04 08/31/18 12:00 08/31/18 16:00 Temperature 97.4 F L 97.2 F L Pulse Rate 77 82 Respiratory Rate 18 19 Blood Pressure 119/87 121/91 H Pulse Oximetry 96 97 97 Intake & Output 08/30/18 08/31/18 08/31/18 18:59 06:59 18:59 Intake Total 1070 / 1070 480 / 480 Balance 1070 / 1070 480 / 480 Weight 55.1 kg Intake: Oral 1070 / 1070 480 / 480 Other: # Voids 1 Date of Last Bowel Movement 08/31/18 <Bhargav Monge - Last Filed: 08/31/18 18:07> Assessment and Plan - Assessment (1) Acute kidney injury Code(s): N17.9 - Acute kidney failure, unspecified Status: Acute Plan: Acute kidney injury requiring hemodialysis. 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 Creatinine was noted to 0.81 on May 04, 2018. Hemodialysis started at [facility] on June 26. If remain HD dependent for 3 months, will label ESRD. Has been non complaint with HD but received dialysis yesterday. Creatinine is improving at 2.79 today, 1.3L/24 hours. Will check labs in AM prior to hemodialysis. Creatinine and UOP improving may not need dialysis tomorrow. (2) Endocarditis Code(s): I38 - Endocarditis, valve unspecified Status: Acute Qualifiers: Endocarditis type: infective Infective endocarditis organism: bacterial Chronicity: acute Qualified Code(s): I33.0 - Acute and subacute infective endocarditis Plan: Antibiotics completed. (3) Hyperkalemia Code(s): E87.5 - Hyperkalemia Status: Acute Plan: Resolved labs in AM <Debbie Godinez - Last Filed: 08/30/18 15:17> - Assessment (1) Acute kidney injury Code(s): N17.9 - Acute kidney failure, unspecified Status: Acute Plan: Patient seen and examined, agree with above. Urine out put is better. Creatinine slightly better. Follow the BMP in AM and decide about HD. (2) Endocarditis Code(s): I38 - Endocarditis, valve unspecified Status: Acute Qualifiers: Endocarditis type: infective Infective endocarditis organism: bacterial Chronicity: acute Qualified Code(s): I33.0 - Acute and subacute infective endocarditis (3) Hyperkalemia Code(s): E87.5 - Hyperkalemia Status: Acute <Bhargav Monge - Last Filed: 08/31/18 18:07>
--- NOTE | 2018-08-30 12:08 | P.PNIM ---
Subjective Interval history: The patient went for dialysis yesterday and had a paracentesis. She was tired and resting in bed. She had no acute complaints. Physical Exam Vital signs: Vital Signs 08/29/18 20:00 08/30/18 00:00 08/30/18 01:45 Temperature 98.5 F 101.7 F H 100.6 F H Pulse Rate 82 88 Respiratory Rate 18 18 Blood Pressure 116/75 106/68 Pulse Oximetry 97 93 L 08/30/18 04:00 08/30/18 04:57 08/30/18 05:45 Temperature 99.0 F 102.6 F H Pulse Rate 94 H 96 H Respiratory Rate 18 20 Blood Pressure 122/82 Pulse Oximetry 96 98 08/30/18 08:00 08/30/18 11:32 Temperature 100.6 F H 97.9 F Pulse Rate 96 H 70 Respiratory Rate 20 18 Blood Pressure 113/76 103/70 Pulse Oximetry 95 95 Intake & Output 08/29/18 08/30/18 08/30/18 18:59 06:59 18:59 Intake Total 500 / 500 480 / 480 Output Total 1000 / 1000 900 / 900 Balance -500 / -500 -420 / -420 Weight 55.1 kg Intake: Oral 500 / 500 480 / 480 Output: Urine 400 / 400 900 / 900 Hemodialysis Amount 600 / 600 Other: Date of Last Bowel Movement 08/28/18 Narrative: GENERAL: In no apparent distress. SKIN: Warm and dry. Right upper chest permacath in place CARDIOVASCULAR: Regular rate and rhythm. Positive murmur RESPIRATORY: No accessory muscle use. Clear to auscultation. Breath sounds equal bilaterally. GASTROINTESTINAL: Abdomen soft, non-tender, distended. MUSCULOSKELETAL: Extremities without clubbing, cyanosis, or edema. No obvious deformities. NEURO: No gross deficits. PSYCH: Flat affect. Results - Labs CBC & Chem 7: 08/29/18 20:06 08/29/18 20:06 Laboratory Results - last 24 hr 08/29/18 08/29/18 08/29/18 20:06 20:06 20:06 WBC 7.9 RBC 3.94 L Hgb 12.0 Hct 37.0 MCV 93.8 MCH 30.4 MCHC 32.4 RDW 20.3 H Plt Count 165 MPV 8.5 Neut % (Auto) 70.2 H Lymph % (Auto) 16.4 Stephens % (Auto) 11.5 H Eos % (Auto) 0.9 Baso % (Auto) 1.0 Neut # (Auto) 5.6 Lymph # (Auto) 1.3 Stephens # (Auto) 0.9 Eos # (Auto) 0.1 Baso # (Auto) 0.1 WBC Differential . Differential Comment Auto diff final PT 13.6 H INR 1.3 Sodium 140 Potassium 3.6 D Chloride 99 Carbon Dioxide 32.3 H Anion Gap 9 BUN 33 H Creatinine 2.29 H Estimated GFR 25 L Random Glucose 93 Calcium 8.1 L Phosphorus 2.5 - Imaging Impressions Paracentesis Ultrasound 08/29/18 00:00 CONCLUSION: 1. Uncomplicated paracentesis. Assessment and Plan - Assessment (1) IV drug abuse Code(s): F19.10 - Other psychoactive substance abuse, uncomplicated Status: Acute (2) Endocarditis Code(s): I38 - Endocarditis, valve unspecified Status: Acute (3) Sepsis Code(s): A41.9 - Sepsis, unspecified organism Status: Resolved (4) End-stage renal disease (ESRD) Code(s): N18.6 - End stage renal disease Status: Acute (5) Ascites Code(s): R18.8 - Other ascites Status: Acute (6) Acute kidney injury Code(s): N17.9 - Acute kidney failure, unspecified Status: Acute - Plan This is a 28-year-old female with infective tricuspid valve endocarditis and multiorgan dysfunction secondary to endocarditis. Remains in heart failure and volume overload, and associated organ failure, including severe renal failure requiring renal replacement therapy. continue to daily pull fluid by HD. Broad spectrum abx. overall prognosis is quite poor given history of leaving AMA. Completed treatment for urinary cisco. Completed ~6 week regimen of IV ancef for MSSA bacteremia on 08/14. Infective tricuspid valve endocarditis Moderate tricuspid valve regurgitation Mixed septic and cardiogenic shock secondary to infective endocarditis- resolving. Bedside echo shows large tricuspid regurgitation with moderate to severe TR With noncompliance and multiple AMA discharges, Not a candidate for valve replacement until she can complete antibiotic therapy and demonstrate medical compliance by not leaving AMA. -Per ID patient, completed Ancef for MSSA on 08/14 -BNP above 5000 (07/21), obviously affected by renal failure. Ascites is likely secondary CHF. -Continue Lasix 40 mg p.o.daily, monitor BMP. Sinus tachycardia Heart rate in the high side -Increased Lopressor 25 mg p.o. twice daily End-stage renal disease/hyponatremia/hyperkalemia -Patient came with outside hospital dialysis access in place. -Perm cath in place, nephrology following, appreciate assistance -Continue renal diet with fluid restriction 1.5L -Nephrology following -Hemodialysis on Wednesday -Wednesday -Wednesday. Pt currently refusing and has been hyperkalemic. S/p Kayexalate per nephrology. -Monitor renal function. Stable 08/30. Ascites Secondary to severe renal injury and suspected CHF -Paracentesis 07/17 with 2.1L removed -paracentesis 08/11 with 2.8 L. -paracentesis 08/29. Pleuritic chest pain/ Hypoxemia Pt complains of chest pain with deep breathing. Repeat CXR stable, suggestive of fluid overload. Likely s/t refusing dialysis. -dialysis for volume management. -hold off on antibiotics as afebrile and without leukocytosis. -oxygen and nebs as needed. -incentive spirometry. IV drug dependence -prn oxycodone to prevent withdrawal -Counseling given Thrombocytopenia Platelets noted trending down, from 200 on 08/05/2018 to 106 08/17 -Stopped heparin, patient has been refusing. -platelets coming up, 178 on 08/24, 170 on 08/26/2018 -Monitor BMP Depressed, likely situational Anxious -Psych attempted to evaluate 08/21, patient refused to speak to them. -Re-evaluated on 08/23 and provided psychosocial education and support for her anxiety and depression. -Continue Xanax 0.25 mg p.o. every 8 as needed for anxiety -Continue Prozac -Monitor mental status DVT Prophylaxis: SCDs Discharge Planning: CM working on proceeding with disability process. Needs Dx of chronic/ESRD to arrange for transitional HD which nephrology is pursuing. (2) Endocarditis Qualifiers: Endocarditis type: infective Infective endocarditis organism: bacterial Chronicity: acute Qualified Code(s): I33.0 - Acute and subacute infective endocarditis (5) Ascites Qualifiers: Ascites type: other type Qualified Code(s): R18.8 - Other ascites
[2018-08-30 13:24] LABS: Albumin 1.8 g/dL (3.4-5.0); Calcium 7.8 mg/dL (8.5-10.1); Carbon Dioxide 28.9 meq/L (21.0-32.0); Phosphorus 3.3 mg/dL (2.5-4.9); Potassium 3.8 meq/L (3.5-5.1)
[2018-08-30] MEDS: QUEtiapine 25 MG Tablet PO SCH (20:32)
[2018-08-31] MEDS: FLUoxetine 10 MG Capsule PO SCH (09:17)
[2018-08-31] MEDS: Metoprolol Tartrate 25 MG Tablet PO SCH ×2 (09:17→20:00)
[2018-08-31] MEDS: Famotidine 20 MG Tablet PO SCH ×2 (09:17→20:01)
[2018-08-31] MEDS: Furosemide 40 MG Tablet PO SCH (09:17)
[2018-08-31] MEDS: Sodium Chloride 0.9% 2 ML Flush BID IV.FLUSH SCH ×2 (09:18→20:04)
--- NOTE | 2018-08-31 10:35 | P.PNNP ---
Subjective Interval history: Seen in AM. No acute events overnight. Non complaint at times. Refused blood work in AM. Denies any shortness of breath, nausea, or vomiting. Rubbing vas cath site under dressing secondary to pruritus. <Debbie Godinez - Last Filed: 08/31/18 16:39> Physical Exam Vital signs: Vital Signs 08/30/18 11:32 08/30/18 16:00 08/30/18 20:00 Temperature 97.9 F 98.0 F 97.3 F L Pulse Rate 70 64 72 Respiratory Rate 18 18 18 Blood Pressure 103/70 115/82 123/93 H Pulse Oximetry 95 98 95 08/31/18 00:00 08/31/18 08:00 08/31/18 09:04 Temperature 97.4 F L 97.9 F Pulse Rate 72 75 Respiratory Rate 17 18 Blood Pressure 110/77 111/83 Pulse Oximetry 100 95 96 Intake & Output 08/30/18 08/31/18 08/31/18 18:59 06:59 18:59 Intake Total 1070 / 1070 480 / 480 Balance 1070 / 1070 480 / 480 Weight 55.1 kg Intake: Oral 1070 / 1070 480 / 480 Other: # Voids 1 Narrative: GENERAL: In no apparent distress. SKIN: Warm and dry. Right upper chest permacath in place CARDIOVASCULAR: Regular rate and rhythm. Positive murmur RESPIRATORY: No accessory muscle use. Clear to auscultation. Breath sounds equal bilaterally. GASTROINTESTINAL: Abdomen soft, non-tender, distended. MUSCULOSKELETAL: Extremities without clubbing, cyanosis, or edema. No obvious deformities. PSYCH: Flat affect. <Debbie Godinez - Last Filed: 08/31/18 16:39> Vital signs: Vital Signs 08/31/18 16:00 08/31/18 20:00 08/31/18 20:11 Temperature 97.2 F L 97.8 F Pulse Rate 82 81 82 Respiratory Rate 19 18 19 Blood Pressure 121/91 H 130/93 H Pulse Oximetry 97 96 94 L 09/01/18 00:00 09/01/18 08:00 Temperature 97.5 F L 98.1 F Pulse Rate 77 85 Respiratory Rate 18 18 Blood Pressure 106/71 125/92 H Pulse Oximetry 96 95 Intake & Output 08/31/18 09/01/18 09/01/18 18:59 06:59 18:59 Intake Total 356 / 356 Balance 356 / 356 Weight 59.2 kg Intake: Oral 356 / 356 Other: # Voids 1 Date of Last Bowel Movement 08/31/18 08/31/18 09/01/18 <Bhargav Monge - Last Filed: 09/01/18 12:34> Assessment and Plan - Assessment (1) Acute kidney injury Code(s): N17.9 - Acute kidney failure, unspecified Status: Acute Plan: Acute kidney injury requiring hemodialysis. 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 Creatinine was noted to 0.81 on May 04, 2018. Hemodialysis started at [facility] on June 26. If remain HD dependent for 3 months, will label ESRD. Has been non complaint with HD off and on. Creatinine at 3.08, urinary output improving. Hemodialysis held today, will assess tomorrow prior to HD. Most likely will need dialysis. Avoid nephrotoxins. Continue lasix. Labs ordered daily. Will follow UOP, BMP, and watch for renal recovery. (2) Endocarditis Code(s): I38 - Endocarditis, valve unspecified Status: Acute Qualifiers: Endocarditis type: infective Infective endocarditis organism: bacterial Chronicity: acute Qualified Code(s): I33.0 - Acute and subacute infective endocarditis Plan: Antibiotics completed. (3) Hyperkalemia Code(s): E87.5 - Hyperkalemia Status: Acute Plan: Resolved labs in AM <Debbie Godinez - Last Filed: 08/31/18 16:39> - Assessment (1) Acute kidney injury Code(s): N17.9 - Acute kidney failure, unspecified Status: Acute Plan: Patient seen and examined, agree with above. Has some improvement in the Creatinine. Urine out put is better. Holding HD now, Follow BMP daily. (2) Endocarditis Code(s): I38 - Endocarditis, valve unspecified Status: Acute Qualifiers: Endocarditis type: infective Infective endocarditis organism: bacterial Chronicity: acute Qualified Code(s): I33.0 - Acute and subacute infective endocarditis (3) Hyperkalemia Code(s): E87.5 - Hyperkalemia Status: Acute <Bhargav Monge - Last Filed: 09/01/18 12:34>
--- NOTE | 2018-08-31 12:22 | P.PNIM ---
Subjective Interval history: The patient said that she needed to have her abdomen drained again. She said it was still swollen. Other than that she had no acute complaints. Physical Exam Vital signs: Vital Signs 08/30/18 16:00 08/30/18 20:00 08/31/18 00:00 Temperature 98.0 F 97.3 F L 97.4 F L Pulse Rate 64 72 72 Respiratory Rate 18 18 17 Blood Pressure 115/82 123/93 H 110/77 Pulse Oximetry 98 95 100 08/31/18 08:00 08/31/18 09:04 Temperature 97.9 F Pulse Rate 75 Respiratory Rate 18 Blood Pressure 111/83 Pulse Oximetry 95 96 Intake & Output 08/30/18 08/31/18 08/31/18 18:59 06:59 18:59 Intake Total 1070 / 1070 480 / 480 Balance 1070 / 1070 480 / 480 Weight 55.1 kg Intake: Oral 1070 / 1070 480 / 480 Other: # Voids 1 Date of Last Bowel Movement 08/31/18 Narrative: GENERAL: In no apparent distress. SKIN: Warm and dry. Right upper chest permacath in place CARDIOVASCULAR: Regular rate and rhythm. Positive murmur RESPIRATORY: No accessory muscle use. Clear to auscultation. Breath sounds equal bilaterally. GASTROINTESTINAL: Abdomen soft, non-tender, distended. MUSCULOSKELETAL: Extremities without clubbing, cyanosis, or edema. No obvious deformities. NEURO: No gross deficits. PSYCH: Flat affect. Results - Labs CBC & Chem 7: 08/29/18 20:06 08/31/18 11:05 Laboratory Results - last 24 hr 08/30/18 12:33 Sodium 134 L Potassium 3.8 Chloride 98 Carbon Dioxide 28.9 Anion Gap 7 BUN 41 H Creatinine 2.79 H Estimated GFR 20 L Random Glucose 86 Calcium 7.8 L Phosphorus 3.3 Albumin 1.8 L Assessment and Plan - Assessment (1) IV drug abuse Code(s): F19.10 - Other psychoactive substance abuse, uncomplicated Status: Acute (2) Endocarditis Code(s): I38 - Endocarditis, valve unspecified Status: Acute (3) Sepsis Code(s): A41.9 - Sepsis, unspecified organism Status: Resolved (4) End-stage renal disease (ESRD) Code(s): N18.6 - End stage renal disease Status: Acute (5) Ascites Code(s): R18.8 - Other ascites Status: Acute (6) Acute kidney injury Code(s): N17.9 - Acute kidney failure, unspecified Status: Acute - Plan This is a 28-year-old female with infective tricuspid valve endocarditis and multiorgan dysfunction secondary to endocarditis. Remains in heart failure and volume overload, and associated organ failure, including severe renal failure requiring renal replacement therapy. continue to daily pull fluid by HD. Broad spectrum abx. overall prognosis is quite poor given history of leaving AMA. Completed treatment for urinary cisco. Completed ~6 week regimen of IV ancef for MSSA bacteremia on 08/14. Infective tricuspid valve endocarditis Moderate tricuspid valve regurgitation Mixed septic and cardiogenic shock secondary to infective endocarditis- resolving. Bedside echo shows large tricuspid regurgitation with moderate to severe TR With noncompliance and multiple AMA discharges, Not a candidate for valve replacement until she can complete antibiotic therapy and demonstrate medical compliance by not leaving AMA. -Per ID patient, completed Ancef for MSSA on 08/14 -BNP above 5000 (07/21), obviously affected by renal failure. Ascites is likely secondary CHF. -Continue Lasix 40 mg p.o.daily, monitor BMP. Sinus tachycardia Heart rate in the high side -Increased Lopressor 25 mg p.o. twice daily End-stage renal disease/hyponatremia/hyperkalemia -Patient came with outside hospital dialysis access in place. -Perm cath in place, nephrology following, appreciate assistance -Continue renal diet with fluid restriction 1.5L -Nephrology following -Hemodialysis on Wednesday -Wednesday -Wednesday. Pt currently refusing and has been hyperkalemic. S/p Kayexalate per nephrology. -Monitor renal function. Ascites Secondary to severe renal injury and suspected CHF -Paracentesis 07/17 with 2.1L removed -paracentesis 08/11 with 2.8 L. -paracentesis 08/29. -continue dialysis for volume management. Pleuritic chest pain/ Hypoxemia Pt complains of chest pain with deep breathing. Repeat CXR stable, suggestive of fluid overload. Likely s/t refusing dialysis. -dialysis for volume management. -hold off on antibiotics as afebrile and without leukocytosis. -oxygen and nebs as needed. -incentive spirometry. IV drug dependence -prn oxycodone to prevent withdrawal -Counseling given. Thrombocytopenia Platelets noted trending down, from 200 on 08/05/2018 to 106 08/17 -Stopped heparin, patient has been refusing. -platelets coming up, 178 on 08/24, 170 on 08/26/2018. Depressed, likely situational Anxious -Psych attempted to evaluate 08/21, patient refused to speak to them. -Re-evaluated on 08/23 and provided psychosocial education and support for her anxiety and depression. -Continue Xanax 0.25 mg p.o. every 8 as needed for anxiety -Continue Prozac DVT Prophylaxis: SCDs Discharge Planning: CM working on proceeding with disability process. Needs Dx of chronic/ESRD to arrange for transitional HD which nephrology is pursuing. (2) Endocarditis Qualifiers: Endocarditis type: infective Infective endocarditis organism: bacterial Chronicity: acute Qualified Code(s): I33.0 - Acute and subacute infective endocarditis (5) Ascites Qualifiers: Ascites type: other type Qualified Code(s): R18.8 - Other ascites
[2018-08-31 12:40] LABS: Carbon Dioxide 24.6 meq/L (21.0-32.0); Potassium 4.8 meq/L (3.5-5.1)
[2018-08-31] MEDS: QUEtiapine 25 MG Tablet PO SCH (20:01)
[2018-09-01] MEDS: Famotidine 20 MG Tablet PO SCH ×2 (08:17→21:38)
[2018-09-01] MEDS: Metoprolol Tartrate 25 MG Tablet PO SCH ×2 (08:17→21:38)
[2018-09-01] MEDS: Furosemide 40 MG Tablet PO SCH (08:17)
[2018-09-01] MEDS: FLUoxetine 10 MG Capsule PO SCH (08:17)
[2018-09-01] MEDS: Sodium Chloride 0.9% 2 ML Flush BID IV.FLUSH SCH ×2 (08:56→21:40)
[2018-09-01 12:09] LABS: Calcium 8.3 mg/dL (8.5-10.1); Carbon Dioxide 25.6 meq/L (21.0-32.0); Potassium 4.5 meq/L (3.5-5.1)
--- NOTE | 2018-09-01 12:10 | P.PNNP ---
Subjective Interval history: Reports occasional shortness of breath. Refused blood draw in AM but has agreed to have blood work now. <Debbie Godinez - Last Filed: 09/01/18 12:05> Physical Exam Vital signs: Vital Signs 08/31/18 16:00 08/31/18 20:00 08/31/18 20:11 Temperature 97.2 F L 97.8 F Pulse Rate 82 81 82 Respiratory Rate 19 18 19 Blood Pressure 121/91 H 130/93 H Pulse Oximetry 97 96 94 L 09/01/18 00:00 09/01/18 08:00 Temperature 97.5 F L 98.1 F Pulse Rate 77 85 Respiratory Rate 18 18 Blood Pressure 106/71 125/92 H Pulse Oximetry 96 95 Intake & Output 08/31/18 09/01/18 09/01/18 18:59 06:59 18:59 Intake Total 356 / 356 Balance 356 / 356 Weight 59.2 kg Intake: Oral 356 / 356 Other: # Voids 1 Date of Last Bowel Movement 08/31/18 08/31/18 09/01/18 Narrative: GENERAL: In no apparent distress. SKIN: Warm and dry. Right upper chest permacath in place CARDIOVASCULAR: Regular rate and rhythm. Positive murmur RESPIRATORY: No accessory muscle use. Clear to auscultation. Breath sounds equal bilaterally. GASTROINTESTINAL: Abdomen soft, non-tender, distended. MUSCULOSKELETAL: Extremities without clubbing, cyanosis, or edema. No obvious deformities. PSYCH: Flat affect. <Debbie Godinez - Last Filed: 09/01/18 12:05> Vital signs: Vital Signs 08/31/18 16:00 08/31/18 20:00 08/31/18 20:11 Temperature 97.2 F L 97.8 F Pulse Rate 82 81 82 Respiratory Rate 19 18 19 Blood Pressure 121/91 H 130/93 H Pulse Oximetry 97 96 94 L 09/01/18 00:00 09/01/18 08:00 Temperature 97.5 F L 98.1 F Pulse Rate 77 85 Respiratory Rate 18 18 Blood Pressure 106/71 125/92 H Pulse Oximetry 96 95 Intake & Output 08/31/18 09/01/18 09/01/18 18:59 06:59 18:59 Intake Total 356 / 356 Balance 356 / 356 Weight 59.2 kg Intake: Oral 356 / 356 Other: # Voids 1 Date of Last Bowel Movement 08/31/18 08/31/18 09/01/18 <Bhargav Monge - Last Filed: 09/01/18 12:48> Assessment and Plan - Assessment (1) Acute kidney injury Code(s): N17.9 - Acute kidney failure, unspecified Status: Acute Plan: Acute kidney injury requiring hemodialysis. 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 Creatinine was noted to 0.81 on May 04, 2018. Hemodialysis started at [facility] on June 26. If remain HD dependent for 3 months, will label ESRD. Has been non complaint with HD off and on. Creatinine at 3.08 yesterday, urinary output improving. Labs are pending for today, has been refusing blood draw in AM, when labs are back will determine need for dialysis at that point. Avoid nephrotoxins. Continue lasix. Labs ordered daily. Will follow UOP, BMP , and watch for renal recovery. (2) Endocarditis Code(s): I38 - Endocarditis, valve unspecified Status: Acute Qualifiers: Endocarditis type: infective Infective endocarditis organism: bacterial Chronicity: acute Qualified Code(s): I33.0 - Acute and subacute infective endocarditis Plan: Antibiotics completed. (3) Hyperkalemia Code(s): E87.5 - Hyperkalemia Status: Acute Plan: Resolved labs in AM <Debbie Godinez - Last Filed: 09/01/18 12:05> - Assessment (1) Acute kidney injury Code(s): N17.9 - Acute kidney failure, unspecified Status: Acute Plan: Patient seen and examined, agree with above. Creatinine increase slightly, most likely will need HD tomorrow, if continue to increase. (2) Endocarditis Code(s): I38 - Endocarditis, valve unspecified Status: Acute Qualifiers: Endocarditis type: infective Infective endocarditis organism: bacterial Chronicity: acute Qualified Code(s): I33.0 - Acute and subacute infective endocarditis (3) Hyperkalemia Code(s): E87.5 - Hyperkalemia Status: Acute <Bhargav Monge - Last Filed: 09/01/18 12:48>
--- NOTE | 2018-09-01 14:50 | P.PNIM ---
Subjective Interval history: The patient was sitting up in receiving a breathing treatment. She had no acute complaints. Discussed with nursing. Physical Exam Vital signs: Vital Signs 08/31/18 16:00 08/31/18 20:00 08/31/18 20:11 Temperature 97.2 F L 97.8 F Pulse Rate 82 81 82 Respiratory Rate 19 18 19 Blood Pressure 121/91 H 130/93 H Pulse Oximetry 97 96 94 L 09/01/18 00:00 09/01/18 08:00 09/01/18 14:33 Temperature 97.5 F L 98.1 F Pulse Rate 77 85 92 H Respiratory Rate 18 Blood Pressure 106/71 125/92 H Pulse Oximetry 96 95 95 Intake & Output 08/31/18 09/01/18 09/01/18 18:59 06:59 18:59 Intake Total 356 / 356 Balance 356 / 356 Weight 59.2 kg Intake: Oral 356 / 356 Other: # Voids 1 Date of Last Bowel Movement 08/31/18 08/31/18 09/01/18 Narrative: GENERAL: In no apparent distress. SKIN: Warm and dry. Right upper chest permacath in place CARDIOVASCULAR: Regular rate and rhythm. Positive murmur RESPIRATORY: Crackles throughout. GASTROINTESTINAL: Abdomen soft, non-tender, distended. MUSCULOSKELETAL: Extremities without clubbing, cyanosis, or edema. No obvious deformities. PSYCH: Flat affect. Results - Labs CBC & Chem 7: 08/29/18 20:06 09/01/18 10:44 Laboratory Results - last 24 hr 09/01/18 10:44 Sodium 134 L Potassium 4.5 Chloride 97 L Carbon Dioxide 25.6 Anion Gap 11 BUN 58 H Creatinine 3.38 H Estimated GFR 16 L Random Glucose 100 Calcium 8.3 L Assessment and Plan - Assessment (1) IV drug abuse Code(s): F19.10 - Other psychoactive substance abuse, uncomplicated Status: Acute (2) Endocarditis Code(s): I38 - Endocarditis, valve unspecified Status: Acute (3) Sepsis Code(s): A41.9 - Sepsis, unspecified organism Status: Resolved (4) End-stage renal disease (ESRD) Code(s): N18.6 - End stage renal disease Status: Acute (5) Ascites Code(s): R18.8 - Other ascites Status: Acute (6) Acute kidney injury Code(s): N17.9 - Acute kidney failure, unspecified Status: Acute - Plan This is a 28-year-old female with infective tricuspid valve endocarditis and multiorgan dysfunction secondary to endocarditis. Remains in heart failure and volume overload, and associated organ failure, including severe renal failure requiring renal replacement therapy. continue to daily pull fluid by HD. Broad spectrum abx. overall prognosis is quite poor given history of leaving AMA. Completed treatment for urinary cisco. Completed ~6 week regimen of IV ancef for MSSA bacteremia on 08/14. Infective tricuspid valve endocarditis Moderate tricuspid valve regurgitation Mixed septic and cardiogenic shock secondary to infective endocarditis- resolving. Bedside echo shows large tricuspid regurgitation with moderate to severe TR With noncompliance and multiple AMA discharges, Not a candidate for valve replacement until she can complete antibiotic therapy and demonstrate medical compliance by not leaving AMA. -Per ID patient, completed Ancef for MSSA on 08/14 -BNP above 5000 (07/21), obviously affected by renal failure. Ascites is likely secondary CHF. -Continue Lasix 40 mg p.o.daily, monitor BMP. Sinus tachycardia Heart rate in the high side -Increased Lopressor 25 mg p.o. twice daily End-stage renal disease/hyponatremia/hyperkalemia -Patient came with outside hospital dialysis access in place. -Perm cath in place, nephrology following, appreciate assistance -Continue renal diet with fluid restriction 1.5L -Nephrology following -Hemodialysis on Wednesday -Wednesday -Wednesday. Schedule dialysis 09/01 as pt has diffuse crackles. Discussed with nephrology. -Monitor renal function. Ascites Secondary to severe renal injury and suspected CHF -Paracentesis 07/17 with 2.1L removed -paracentesis 08/11 with 2.8 L. -paracentesis 08/29. -continue dialysis for volume management. Pleuritic chest pain/ Hypoxemia Pt complains of chest pain with deep breathing. Repeat CXR stable, suggestive of fluid overload. Likely s/t refusing dialysis. -dialysis planned 09/01. -hold off on antibiotics as afebrile and without leukocytosis. -oxygen and nebs as needed. -incentive spirometry. IV drug dependence -prn oxycodone to prevent withdrawal -Counseling given. Thrombocytopenia Platelets noted trending down, from 200 on 08/05/2018 to 106 08/17 -Stopped heparin, patient has been refusing. -platelets coming up, 178 on 08/24, 170 on 08/26/2018. Depressed, likely situational Anxious -Psych attempted to evaluate 08/21, patient refused to speak to them. -Re-evaluated on 08/23 and provided psychosocial education and support for her anxiety and depression. -Continue Xanax 0.25 mg p.o. every 8 as needed for anxiety -Continue Prozac DVT Prophylaxis: SCDs Discharge Planning: CM working on proceeding with disability process. Needs Dx of chronic/ESRD to arrange for transitional HD which nephrology is pursuing. (2) Endocarditis Qualifiers: Endocarditis type: infective Infective endocarditis organism: bacterial Chronicity: acute Qualified Code(s): I33.0 - Acute and subacute infective endocarditis (5) Ascites Qualifiers: Ascites type: other type Qualified Code(s): R18.8 - Other ascites
[2018-09-01] MEDS: QUEtiapine 25 MG Tablet PO SCH (21:39)
[2018-09-02] MEDS: Famotidine 20 MG Tablet PO SCH ×2 (08:09→20:45)
[2018-09-02] MEDS: Furosemide 40 MG Tablet PO SCH (08:09)
[2018-09-02] MEDS: Sodium Chloride 0.9% 2 ML Flush BID IV.FLUSH SCH ×2 (08:10→20:45)
[2018-09-02] MEDS: Metoprolol Tartrate 25 MG Tablet PO SCH ×2 (08:10→20:45)
[2018-09-02] MEDS: FLUoxetine 10 MG Capsule PO SCH (08:10)
[2018-09-02 08:30] LABS: Baso # (Auto) 0.1 th/mm3 (0.0-0.2); Baso % (Auto) 1.3 % (0.0-2.0); Eos # (Auto) 0.1 th/mm3 (0.0-0.4); Eos % (Auto) 1.3 % (0.0-4.0); Hematocrit 35.9 % (35.0-46.0); Hemoglobin 11.3 gm/dL (11.6-15.3); Lymph # (Auto) 2.2 th/mm3 (1.0-4.8); Lymph % (Auto) 26.8 % (9.0-44.0); Mean Corpuscular HGB Conc 31.4 % (32.0-36.0); Mean Corpuscular Hemoglobin 29.8 pg (27.0-34.0); Mean Corpuscular Volume 95.1 fL (80.0-100.0); Mean Platelet Volume 8.5 fL (7.0-11.0); Mono # (Auto) 0.9 th/mm3 (0.0-0.9); Mono % (Auto) 10.5 % (0.0-8.0); Neut # (Auto) 4.9 th/mm3 (1.8-7.7); Neut % (Auto) 60.1 % (16.0-70.0); Platelet Count 166 th/mm3 (150-450); Red Blood Count 3.77 mil/mm3 (4.00-5.30); White Blood Count 8.2 th/mm3 (4.0-11.0)
[2018-09-02 08:54] LABS: Calcium 8.3 mg/dL (8.5-10.1); Carbon Dioxide 26.8 meq/L (21.0-32.0); Potassium 4.5 meq/L (3.5-5.1)
[2018-09-02 09:12] LABS: Platelet Estimate Normal (Normal)
--- NOTE | 2018-09-02 11:58 | P.PNIM ---
Subjective Interval history: The patient was resting in bed. She said dialysis went well. She requested a breathing treatment. She says that her belly feels fat. If she gets another paracentesis she wants it on the left side. Physical Exam Vital signs: Vital Signs 09/01/18 12:00 09/01/18 14:33 09/01/18 16:00 Temperature 98.1 F 97.8 F Pulse Rate 81 92 H 85 Respiratory Rate 17 18 18 Blood Pressure 126/93 H 118/90 Pulse Oximetry 95 95 97 09/01/18 21:00 09/02/18 00:00 Temperature 97.8 F 99.0 F Pulse Rate 85 85 Respiratory Rate 16 16 Blood Pressure 125/86 119/87 Pulse Oximetry 94 L 97 Intake & Output 09/01/18 09/02/18 09/02/18 18:59 06:59 18:59 Intake Total 1106 / 1106 240 / 240 Output Total 2700 / 2700 300 / 300 Balance 1106 / 1106 -2460 / -2460 -300 / -300 Weight 59.2 kg 59 kg Intake: Oral 1106 / 1106 240 / 240 Output: Urine 200 / 200 300 / 300 Hemodialysis Amount 2500 / 2500 Other: # Voids 4 1 Date of Last Bowel Movement 09/01/18 09/01/18 # Bowel Movements 0 Narrative: GENERAL: In no apparent distress. SKIN: Warm and dry. Right upper chest permacath in place CARDIOVASCULAR: Regular rate and rhythm. Positive murmur RESPIRATORY: Crackles throughout. GASTROINTESTINAL: Abdomen soft, non-tender, distended. MUSCULOSKELETAL: Extremities without clubbing, cyanosis, or edema. No obvious deformities. PSYCH: Flat affect. Results - Labs CBC & Chem 7: 09/02/18 07:19 09/02/18 07:49 Laboratory Results - last 24 hr 09/01/18 09/02/18 09/02/18 10:44 07:19 07:49 WBC 8.2 RBC 3.77 L Hgb 11.3 L Hct 35.9 MCV 95.1 MCH 29.8 MCHC 31.4 L RDW 20.0 H Plt Count 166 MPV 8.5 Prelim Diff (Auto) Slide review pending Neut % (Auto) 60.1 Lymph % (Auto) 26.8 Emery % (Auto) 10.5 H Eos % (Auto) 1.3 Baso % (Auto) 1.3 Neut # (Auto) 4.9 Lymph # (Auto) 2.2 Emery # (Auto) 0.9 Eos # (Auto) 0.1 Baso # (Auto) 0.1 WBC Differential . Diff Scan Auto diff confirmed Differential Comment . Platelet Estimate Normal Platelet Morphology Enlarged H Sodium 134 L 137 Potassium 4.5 4.5 Chloride 97 L 100 Carbon Dioxide 25.6 26.8 Anion Gap 11 10 BUN 58 H 37 H Creatinine 3.38 H 2.52 H Estimated GFR 16 L 23 L Random Glucose 100 107 H Calcium 8.3 L 8.3 L Assessment and Plan - Assessment (1) IV drug abuse Code(s): F19.10 - Other psychoactive substance abuse, uncomplicated Status: Acute (2) Endocarditis Code(s): I38 - Endocarditis, valve unspecified Status: Acute (3) Sepsis Code(s): A41.9 - Sepsis, unspecified organism Status: Resolved (4) End-stage renal disease (ESRD) Code(s): N18.6 - End stage renal disease Status: Acute (5) Ascites Code(s): R18.8 - Other ascites Status: Acute (6) Acute kidney injury Code(s): N17.9 - Acute kidney failure, unspecified Status: Acute - Plan This is a 28-year-old female with infective tricuspid valve endocarditis and multiorgan dysfunction secondary to endocarditis. Remains in heart failure and volume overload, and associated organ failure, including severe renal failure requiring renal replacement therapy. continue to daily pull fluid by HD. Broad spectrum abx. overall prognosis is quite poor given history of leaving AMA. Completed treatment for urinary cisco. Completed ~6 week regimen of IV ancef for MSSA bacteremia on 08/14. Infective tricuspid valve endocarditis Moderate tricuspid valve regurgitation Mixed septic and cardiogenic shock secondary to infective endocarditis- resolving. Bedside echo shows large tricuspid regurgitation with moderate to severe TR With noncompliance and multiple AMA discharges, Not a candidate for valve replacement until she can complete antibiotic therapy and demonstrate medical compliance by not leaving AMA. -Per ID patient, completed Ancef for MSSA on 08/14 -BNP above 5000 (07/21), obviously affected by renal failure. Ascites is likely secondary CHF. -Continue Lasix 40 mg p.o.daily, monitor BMP. Sinus tachycardia Heart rate in the high side -Increased Lopressor 25 mg p.o. twice daily End-stage renal disease/hyponatremia/hyperkalemia -Patient came with outside hospital dialysis access in place. -Perm cath in place, nephrology following, appreciate assistance -Continue renal diet with fluid restriction 1.5L -Nephrology following -Hemodialysis on Wednesday -Wednesday -Wednesday. Received dialysis 09/01 as pt had diffuse crackles, improved. -Monitor renal function. Ascites Secondary to severe renal injury and suspected CHF -Paracentesis 07/17 with 2.1L removed -paracentesis 08/11 with 2.8 L. -paracentesis 08/29. -continue dialysis for volume management. Paracentesis as needed. Pleuritic chest pain/ Hypoxemia Pt complains of chest pain with deep breathing. Repeat CXR stable, suggestive of fluid overload. Likely s/t refusing dialysis. -dialysis planned 09/01. -hold off on antibiotics as afebrile and without leukocytosis. -oxygen and nebs as needed. -incentive spirometry. IV drug dependence -prn oxycodone to prevent withdrawal -Counseling given. Thrombocytopenia Platelets noted trending down, from 200 on 08/05/2018 to 106 08/17 -Stopped heparin, patient has been refusing. -platelets coming up, 178 on 08/24, 170 on 08/26/2018. Depressed, likely situational Anxious -Psych attempted to evaluate 08/21, patient refused to speak to them. -Re-evaluated on 08/23 and provided psychosocial education and support for her anxiety and depression. -Continue Xanax 0.25 mg p.o. every 8 as needed for anxiety -Continue Prozac DVT Prophylaxis: SCDs Discharge Planning: CM working on proceeding with disability process. Needs Dx of chronic/ESRD to arrange for transitional HD which nephrology is pursuing. (2) Endocarditis Qualifiers: Endocarditis type: infective Infective endocarditis organism: bacterial Chronicity: acute Qualified Code(s): I33.0 - Acute and subacute infective endocarditis (5) Ascites Qualifiers: Ascites type: other type Qualified Code(s): R18.8 - Other ascites
--- NOTE | 2018-09-02 12:15 | P.PNNP ---
Subjective Interval history: Resting. Reports continued shortness of breath with now change after hemodialysis. No nausea or vomiting. Creatinine at 2.52. <Debbie Godinez - Last Filed: 09/02/18 12:10> Physical Exam Vital signs: Vital Signs 09/01/18 14:33 09/01/18 16:00 09/01/18 21:00 Temperature 97.8 F 97.8 F Pulse Rate 92 H 85 85 Respiratory Rate 18 18 16 Blood Pressure 118/90 125/86 Pulse Oximetry 95 97 94 L 09/02/18 00:00 Temperature 99.0 F Pulse Rate 85 Respiratory Rate 16 Blood Pressure 119/87 Pulse Oximetry 97 Intake & Output 09/01/18 09/02/18 09/02/18 18:59 06:59 18:59 Intake Total 1106 / 1106 240 / 240 Output Total 2700 / 2700 300 / 300 Balance 1106 / 1106 -2460 / -2460 -300 / -300 Weight 59.2 kg 59 kg Intake: Oral 1106 / 1106 240 / 240 Output: Urine 200 / 200 300 / 300 Hemodialysis Amount 2500 / 2500 Other: # Voids 4 1 Date of Last Bowel Movement 09/01/18 09/01/18 # Bowel Movements 0 Narrative: GENERAL: In no apparent distress. SKIN: Warm and dry. Right upper chest permacath in place CARDIOVASCULAR: Regular rate and rhythm. Positive murmur RESPIRATORY: Crackles throughout. GASTROINTESTINAL: Abdomen soft, non-tender, distended. MUSCULOSKELETAL: Extremities without clubbing, cyanosis, or edema. No obvious deformities. PSYCH: Flat affect. <Debbie Godinez - Last Filed: 09/02/18 12:10> Vital signs: Vital Signs 09/07/18 00:00 09/07/18 04:00 09/07/18 08:00 Temperature 97.1 F L 98.7 F 99.3 F Pulse Rate 90 84 76 Respiratory Rate 18 18 17 Blood Pressure 121/92 H 114/8 L 114/78 Pulse Oximetry 99 92 L 95 09/07/18 11:11 09/07/18 12:00 09/07/18 12:58 Temperature 98.2 F Pulse Rate 78 Respiratory Rate 18 Blood Pressure 124/87 Pulse Oximetry 97 97 95 09/07/18 16:00 Temperature 97.7 F Pulse Rate 82 Respiratory Rate 20 Blood Pressure 126/89 Pulse Oximetry 97 Intake & Output 09/06/18 09/07/18 09/07/18 18:59 06:59 18:59 Intake Total 1188 / 1188 240 / 240 720 / 720 Output Total 900 / 900 Balance 1188 / 1188 -660 / -660 720 / 720 Weight 58.8 kg Intake: Oral 1188 / 1188 240 / 240 720 / 720 Output: Urine 900 / 900 Other: # Voids 4 Date of Last Bowel Movement 09/05/18 09/07/18 # Bowel Movements 1 <Bhargav Monge - Last Filed: 09/07/18 18:29> Assessment and Plan - Assessment (1) Acute kidney injury Code(s): N17.9 - Acute kidney failure, unspecified Status: Acute Plan: Acute kidney injury requiring hemodialysis. 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 Creatinine was noted to 0.81 on May 04, 2018. Hemodialysis started at [facility] on June 26. If remain HD dependent for 3 months, will label ESRD. Has been non complaint with HD off and on. Creatinine at 2.54. Urinary output documented less than 500 ml/24 hours but not all urine has been measured. Avoid nephrotoxins. Continue lasix. Labs ordered daily. Will follow UOP, BMP, and watch for renal recovery. Hemodialysis tomorrow will assess labs and urinary output prior to assess for need for HD (2) Endocarditis Code(s): I38 - Endocarditis, valve unspecified Status: Acute Qualifiers: Endocarditis type: infective Infective endocarditis organism: bacterial Chronicity: acute Qualified Code(s): I33.0 - Acute and subacute infective endocarditis Plan: Antibiotics completed. (3) Hyperkalemia Code(s): E87.5 - Hyperkalemia Status: Acute Plan: Resolved labs in AM <Debbie Godinez - Last Filed: 09/02/18 12:10> - Assessment (1) Acute kidney injury Code(s): N17.9 - Acute kidney failure, unspecified Status: Acute Plan: Patient seen and examined, agree with above. Has some improvement in the urine out put and BMP. HD done yesterday, follow lab tomorrow and HD as needed. (2) Endocarditis Code(s): I38 - Endocarditis, valve unspecified Status: Acute Qualifiers: Endocarditis type: infective Infective endocarditis organism: bacterial Chronicity: acute Qualified Code(s): I33.0 - Acute and subacute infective endocarditis (3) Hyperkalemia Code(s): E87.5 - Hyperkalemia Status: Acute <Bhargav Monge - Last Filed: 09/07/18 18:29>
[2018-09-02] MEDS: ALPRAZolam 0.25 MG Tablet PO PRN ×2 (14:00→20:43)
[2018-09-02] MEDS: QUEtiapine 25 MG Tablet PO SCH (20:44)
[2018-09-03 08:16] LABS: Calcium 8.5 mg/dL (8.5-10.1); Carbon Dioxide 25.8 meq/L (21.0-32.0)
[2018-09-03] MEDS: Famotidine 20 MG Tablet PO SCH ×2 (10:23→20:07)
[2018-09-03] MEDS: ALPRAZolam 0.25 MG Tablet PO PRN ×2 (10:23→18:23)
[2018-09-03] MEDS: FLUoxetine 10 MG Capsule PO SCH (10:23)
[2018-09-03] MEDS: Furosemide 40 MG Tablet PO SCH (10:24)
[2018-09-03] MEDS: Sodium Chloride 0.9% 2 ML Flush BID IV.FLUSH SCH ×2 (10:24→20:08)
[2018-09-03] MEDS: Metoprolol Tartrate 25 MG Tablet PO SCH ×2 (10:24→20:07)
--- NOTE | 2018-09-03 11:28 | P.PNIM ---
Subjective Interval history: f/u ; ESRD in no acute distress. on oxygen via [place]. denies pain. Physical Exam Vital signs: Vital Signs 09/02/18 12:00 09/02/18 16:00 09/02/18 20:00 Temperature 97.6 F 98.4 F 97.9 F Pulse Rate 81 96 H 92 H Respiratory Rate 18 18 19 Blood Pressure 115/81 127/98 H 129/98 H Pulse Oximetry 99 95 96 09/02/18 20:24 09/03/18 00:00 Temperature 98.1 F Pulse Rate 90 94 H Respiratory Rate 18 19 Blood Pressure 124/73 Pulse Oximetry 97 95 Intake & Output 09/02/18 09/03/18 09/03/18 18:59 06:59 18:59 Intake Total 236 / 236 Output Total 300 / 300 0 / 0 Balance -300 / -300 236 / 236 Intake: Oral 236 / 236 Output: Urine 300 / 300 0 / 0 Other: Date of Last Bowel Movement 09/01/18 - Constitutional no acute distress - Routine Respiratory Exam Present: CTA bilaterally - Routine Cardiovascular Exam Present: RRR - Routine Abdominal Exam Present: soft - Routine Extremities Exam Comments: no pedal edema. - Routine Neurological Exam Present: alert, oriented X3 Results - Labs CBC & Chem 7: 09/02/18 07:19 09/03/18 06:52 Laboratory Results - last 24 hr 09/03/18 06:52 Sodium 134 L Potassium 5.0 Chloride 99 Carbon Dioxide 25.8 Anion Gap 9 BUN 45 H Creatinine 2.92 H Estimated GFR 19 L Random Glucose 69 L Calcium 8.5 Assessment and Plan - Assessment (1) IV drug abuse Code(s): F19.10 - Other psychoactive substance abuse, uncomplicated Status: Acute (2) Endocarditis Code(s): I38 - Endocarditis, valve unspecified Status: Acute (3) Sepsis Code(s): A41.9 - Sepsis, unspecified organism Status: Resolved (4) End-stage renal disease (ESRD) Code(s): N18.6 - End stage renal disease Status: Acute (5) Ascites Code(s): R18.8 - Other ascites Status: Acute (6) Acute kidney injury Code(s): N17.9 - Acute kidney failure, unspecified Status: Acute - Plan This is a 28-year-old female with infective tricuspid valve endocarditis and multiorgan dysfunction secondary to endocarditis. Remains in heart failure and volume overload, and associated organ failure, including severe renal failure requiring renal replacement therapy. continue to daily pull fluid by HD. Broad spectrum abx. overall prognosis is quite poor given history of leaving AMA. Completed treatment for urinary cisco. Completed ~6 week regimen of IV ancef for MSSA bacteremia on 08/14. Infective tricuspid valve endocarditis Moderate tricuspid valve regurgitation Mixed septic and cardiogenic shock secondary to infective endocarditis- resolving. Bedside echo shows large tricuspid regurgitation with moderate to severe TR With noncompliance and multiple AMA discharges, Not a candidate for valve replacement until she can complete antibiotic therapy and demonstrate medical compliance by not leaving AMA. -Per ID patient, completed Ancef for MSSA on 08/14 -Continue Lasix 40 mg p.o.daily, monitor BMP. Sinus tachycardia -continue Lopressor 25 mg p.o. twice daily End-stage renal disease/hyponatremia/hyperkalemia -Patient came with outside hospital dialysis access in place. -Perm cath in place, nephrology following, appreciate assistance -Continue renal diet with fluid restriction 1.5L -Nephrology following -Hemodialysis on Wednesday -Wednesday -Wednesday. -Monitor renal function. Ascites Secondary to severe renal injury and suspected CHF -Paracentesis 07/17 with 2.1L removed -paracentesis 08/11 with 2.8 L. -paracentesis 08/29. -continue dialysis for volume management. Paracentesis as needed. Pleuritic chest pain/ Hypoxemia Pt complains of chest pain with deep breathing. Repeat CXR stable, suggestive of fluid overload. Likely s/t refusing dialysis. -dialysis planned 09/01. -hold off on antibiotics as afebrile and without leukocytosis. -oxygen and nebs as needed. -incentive spirometry. IV drug dependence -prn oxycodone to prevent withdrawal -Counseling given. Thrombocytopenia- improved. -Stopped heparin, patient has been refusing. Depressed, likely situational Anxious -Psych attempted to evaluate 08/21, patient refused to speak to them. -Re-evaluated on 08/23 and provided psychosocial education and support for her anxiety and depression. -Continue Xanax 0.25 mg p.o. every 8 as needed for anxiety -Continue Prozac DVT Prophylaxis: SCDs Discharge Planning: needs HD. dc planning in progress. (2) Endocarditis Qualifiers: Endocarditis type: infective Infective endocarditis organism: bacterial Chronicity: acute Qualified Code(s): I33.0 - Acute and subacute infective endocarditis (5) Ascites Qualifiers: Ascites type: other type Qualified Code(s): R18.8 - Other ascites
--- NOTE | 2018-09-03 17:24 | P.PNNP ---
Subjective Interval history: Patient had baseline denies shortness of breath Physical Exam Vital signs: Vital Signs 09/02/18 20:00 09/02/18 20:24 09/03/18 00:00 Temperature 97.9 F 98.1 F Pulse Rate 92 H 90 94 H Respiratory Rate 19 18 19 Blood Pressure 129/98 H 124/73 Pulse Oximetry 96 97 95 09/03/18 08:00 09/03/18 12:00 Temperature 98.2 F 98.0 F Pulse Rate 81 76 Respiratory Rate 14 16 Blood Pressure 107/80 120/90 Pulse Oximetry 99 96 Intake & Output 09/02/18 09/03/18 09/03/18 18:59 06:59 18:59 Intake Total 236 / 236 Output Total 300 / 300 0 / 0 Balance -300 / -300 236 / 236 Intake: Oral 236 / 236 Output: Urine 300 / 300 0 / 0 Other: Date of Last Bowel Movement 09/01/18 09/03/18 Narrative: GENERAL: In no apparent distress. SKIN: Warm and dry. Right upper chest permacath in place CARDIOVASCULAR: Regular rate and rhythm. Positive murmur RESPIRATORY: Crackles throughout. GASTROINTESTINAL: Abdomen soft, non-tender, distended. MUSCULOSKELETAL: Extremities without clubbing, cyanosis, or edema. No obvious deformities. PSYCH: Flat affect. Assessment and Plan - Assessment (1) Acute kidney injury Code(s): N17.9 - Acute kidney failure, unspecified Status: Acute Plan: Acute kidney injury requiring hemodialysis. 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 Creatinine was noted to 0.81 on May 04, 2018. Hemodialysis started at [facility] on June 26. If remain HD dependent for 3 months, will label ESRD. Patient creatinine is 2.9 we will continue to observe without dialysis For recovery K 5 May need less frequent dialysis if BUN and creatinine continue to worsen then hemodialysis as needed (2) Endocarditis Code(s): I38 - Endocarditis, valve unspecified Status: Acute Qualifiers: Endocarditis type: infective Infective endocarditis organism: bacterial Chronicity: acute Qualified Code(s): I33.0 - Acute and subacute infective endocarditis Plan: Antibiotics completed. (3) Hyperkalemia Code(s): E87.5 - Hyperkalemia Status: Acute Plan: Resolved labs in AM
[2018-09-03] MEDS: QUEtiapine 25 MG Tablet PO SCH (20:07)
[2018-09-04] MEDS: Metoprolol Tartrate 25 MG Tablet PO SCH ×2 (09:15→22:03)
[2018-09-04] MEDS: ALPRAZolam 0.25 MG Tablet PO PRN ×3 (09:15→22:06)
[2018-09-04] MEDS: Famotidine 20 MG Tablet PO SCH ×2 (09:15→22:03)
[2018-09-04] MEDS: FLUoxetine 10 MG Capsule PO SCH (09:16)
[2018-09-04] MEDS: Sodium Chloride 0.9% 2 ML Flush BID IV.FLUSH SCH ×2 (09:16→22:03)
--- NOTE | 2018-09-04 10:06 | P.PNIM ---
Subjective Interval history: in no acute distress. denies pain. no new complaints. Physical Exam Vital signs: Vital Signs 09/03/18 12:00 09/03/18 16:00 09/03/18 20:00 Temperature 98.0 F 98.5 F 97.3 F L Pulse Rate 76 65 85 Respiratory Rate 16 16 20 Blood Pressure 120/90 104/82 118/89 Pulse Oximetry 96 96 94 L 09/03/18 22:34 09/04/18 00:00 09/04/18 08:00 Temperature 98.8 F 97.6 F Pulse Rate 90 70 77 Respiratory Rate 20 18 18 Blood Pressure 111/78 128/83 Pulse Oximetry 95 95 97 Intake & Output 09/03/18 09/04/18 09/04/18 19:59 06:59 18:59 Intake Total Output Total Balance Weight Intake: Oral Output: Urine Other: Date of Last Bowel Movement - Constitutional no acute distress - Routine Respiratory Exam Present: CTA bilaterally - Routine Cardiovascular Exam Present: RRR - Routine Abdominal Exam Present: soft - Routine Extremities Exam Comments: no pedal edema. - Routine Neurological Exam Present: alert, oriented X3 Results - Labs CBC & Chem 7: 09/02/18 07:19 09/03/18 06:52 Assessment and Plan - Assessment (1) IV drug abuse Code(s): F19.10 - Other psychoactive substance abuse, uncomplicated Status: Acute (2) Endocarditis Code(s): I38 - Endocarditis, valve unspecified Status: Acute (3) Sepsis Code(s): A41.9 - Sepsis, unspecified organism Status: Resolved (4) End-stage renal disease (ESRD) Code(s): N18.6 - End stage renal disease Status: Acute (5) Ascites Code(s): R18.8 - Other ascites Status: Acute (6) Acute kidney injury Code(s): N17.9 - Acute kidney failure, unspecified Status: Acute - Plan This is a 28-year-old female with infective tricuspid valve endocarditis and multiorgan dysfunction secondary to endocarditis. Remains in heart failure and volume overload, and associated organ failure, including severe renal failure requiring renal replacement therapy. continue to daily pull fluid by HD. Broad spectrum abx. overall prognosis is quite poor given history of leaving AMA. Completed treatment for urinary cisco. Completed ~6 week regimen of IV ancef for MSSA bacteremia on 08/14. Infective tricuspid valve endocarditis Moderate tricuspid valve regurgitation Mixed septic and cardiogenic shock secondary to infective endocarditis- resolving. Bedside echo shows large tricuspid regurgitation with moderate to severe TR With noncompliance and multiple AMA discharges, Not a candidate for valve replacement until she can complete antibiotic therapy and demonstrate medical compliance by not leaving AMA. -Per ID patient, completed Ancef for MSSA on 08/14 -Continue Lasix 40 mg p.o.daily, monitor BMP. Sinus tachycardia -continue Lopressor 25 mg p.o. twice daily End-stage renal disease/hyponatremia/hyperkalemia -Patient came with outside hospital dialysis access in place. -Perm cath in place, nephrology following, appreciate assistance -Continue renal diet with fluid restriction 1.5L -Nephrology following -Hemodialysis on Wednesday -Wednesday -Wednesday. -Monitor renal function. Ascites Secondary to severe renal injury and suspected CHF -Paracentesis 07/17 with 2.1L removed -paracentesis 08/11 with 2.8 L. -paracentesis 08/29. -continue dialysis for volume management. Paracentesis as needed. Pleuritic chest pain/ Hypoxemia Pt complains of chest pain with deep breathing. Repeat CXR stable, suggestive of fluid overload. Likely s/t refusing dialysis. -dialysis planned 09/01. -hold off on antibiotics as afebrile and without leukocytosis. -oxygen and nebs as needed. -incentive spirometry. IV drug dependence -prn oxycodone to prevent withdrawal -Counseling given. Thrombocytopenia- improved. -Stopped heparin, patient has been refusing. Depressed, likely situational Anxious -Psych attempted to evaluate 08/21, patient refused to speak to them. -Re-evaluated on 08/23 and provided psychosocial education and support for her anxiety and depression. -Continue Xanax 0.25 mg p.o. every 8 as needed for anxiety -Continue Prozac DVT Prophylaxis: SCDs Discharge Planning: needs HD. dc planning in progress. (2) Endocarditis Qualifiers: Endocarditis type: infective Infective endocarditis organism: bacterial Chronicity: acute Qualified Code(s): I33.0 - Acute and subacute infective endocarditis (5) Ascites Qualifiers: Ascites type: other type Qualified Code(s): R18.8 - Other ascites
[2018-09-04 10:18] LABS: Calcium 8.6 mg/dL (8.5-10.1); Carbon Dioxide 26.8 meq/L (21.0-32.0); Potassium 4.8 meq/L (3.5-5.1)
[2018-09-04] MEDS: Furosemide 40 MG Tablet PO SCH (11:04)
--- NOTE | 2018-09-04 18:01 | P.PNNP ---
Subjective Interval history: About same Physical Exam Vital signs: Vital Signs 09/03/18 20:00 09/03/18 22:34 09/04/18 00:00 Temperature 97.3 F L 98.8 F Pulse Rate 85 90 70 Respiratory Rate 20 20 18 Blood Pressure 118/89 111/78 Pulse Oximetry 94 L 95 95 09/04/18 08:00 09/04/18 12:00 09/04/18 12:03 Temperature 97.6 F 97.7 F Pulse Rate 77 87 Respiratory Rate 18 18 Blood Pressure 128/83 110/75 Pulse Oximetry 97 95 97 Intake & Output 09/03/18 09/04/18 09/04/18 19:59 06:59 18:59 Intake Total 910 / 910 Output Total Balance 910 / 910 Weight Intake: Oral 910 / 910 Output: Urine Other: Date of Last Bowel Movement 09/04/18 Assessment and Plan - Assessment (1) Acute kidney injury Code(s): N17.9 - Acute kidney failure, unspecified Status: Acute Plan: Acute kidney injury requiring hemodialysis. 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 Creatinine was noted to 0.81 on May 04, 2018. Hemodialysis started at [facility] on June 26. If remain HD dependent for 3 months, will label ESRD. Patient creatinine is 3.53 we will need dialysis Wednesday K 4.8 Dr. Monge to follow (2) Endocarditis Code(s): I38 - Endocarditis, valve unspecified Status: Acute Qualifiers: Endocarditis type: infective Infective endocarditis organism: bacterial Chronicity: acute Qualified Code(s): I33.0 - Acute and subacute infective endocarditis Plan: Antibiotics completed. (3) Hyperkalemia Code(s): E87.5 - Hyperkalemia Status: Acute Plan: Resolved labs in AM
[2018-09-04] MEDS: QUEtiapine 25 MG Tablet PO SCH (22:03)
[2018-09-05 07:07] LABS: Calcium 8.1 mg/dL (8.5-10.1); Carbon Dioxide 23.6 meq/L (21.0-32.0); Potassium 4.9 meq/L (3.5-5.1)
[2018-09-05] MEDS: Metoprolol Tartrate 25 MG Tablet PO SCH ×2 (09:12→20:15)
[2018-09-05] MEDS: Famotidine 20 MG Tablet PO SCH ×2 (09:13→20:14)
[2018-09-05] MEDS: Furosemide 40 MG Tablet PO SCH (09:13)
[2018-09-05] MEDS: FLUoxetine 10 MG Capsule PO SCH (09:13)
[2018-09-05] MEDS: Sodium Chloride 0.9% 2 ML Flush BID IV.FLUSH SCH ×2 (09:15→20:16)
--- NOTE | 2018-09-05 10:22 | P.PNNP ---
Subjective Interval history: Resting, no signs of distress. Creatinine at 3.56, hemodialysis held over the weekend. <Debbie Godinez - Last Filed: 09/05/18 15:08> Physical Exam Vital signs: Vital Signs 09/04/18 12:00 09/04/18 12:03 09/04/18 20:00 Temperature 97.7 F 98.7 F Pulse Rate 87 85 Respiratory Rate 18 16 Blood Pressure 110/75 122/81 Pulse Oximetry 95 97 93 L 09/05/18 00:00 09/05/18 08:00 09/05/18 10:11 Temperature 98.1 F 97.8 F Pulse Rate 103 H 75 Respiratory Rate 20 18 Blood Pressure 137/63 79/50 L 100/62 Pulse Oximetry 96 99 09/05/18 10:12 Temperature Pulse Rate Respiratory Rate Blood Pressure 98/68 L Pulse Oximetry Intake & Output 09/04/18 09/05/18 09/05/18 18:59 06:59 18:59 Intake Total 910 / 910 Output Total 350 / 350 200 / 200 Balance 560 / 560 -200 / -200 Weight 59.7 kg Intake: Oral 910 / 910 Output: Urine 350 / 350 200 / 200 Other: Date of Last Bowel Movement 09/04/18 09/04/18 09/05/18 # Bowel Movements 2 Narrative: GENERAL: In no apparent distress. SKIN: Warm and dry. Right upper chest permacath in place CARDIOVASCULAR: Regular rate and rhythm. Positive murmur RESPIRATORY: Crackles throughout. GASTROINTESTINAL: Abdomen soft, non-tender, distended. MUSCULOSKELETAL: Extremities without clubbing, cyanosis, or edema. No obvious deformities. PSYCH: Flat affect. <Debbie Godinez - Last Filed: 09/05/18 15:08> Vital signs: Vital Signs 09/07/18 00:00 09/07/18 04:00 09/07/18 08:00 Temperature 97.1 F L 98.7 F 99.3 F Pulse Rate 90 84 76 Respiratory Rate 18 18 17 Blood Pressure 121/92 H 114/8 L 114/78 Pulse Oximetry 99 92 L 95 09/07/18 11:11 09/07/18 12:00 09/07/18 12:58 Temperature 98.2 F Pulse Rate 78 Respiratory Rate 18 Blood Pressure 124/87 Pulse Oximetry 97 97 95 09/07/18 16:00 Temperature 97.7 F Pulse Rate 82 Respiratory Rate 20 Blood Pressure 126/89 Pulse Oximetry 97 Intake & Output 09/06/18 09/07/18 09/07/18 18:59 06:59 18:59 Intake Total 1188 / 1188 240 / 240 720 / 720 Output Total 900 / 900 Balance 1188 / 1188 -660 / -660 720 / 720 Weight 58.8 kg Intake: Oral 1188 / 1188 240 / 240 720 / 720 Output: Urine 900 / 900 Other: # Voids 4 Date of Last Bowel Movement 09/05/18 09/07/18 # Bowel Movements 1 <Bhargav Monge - Last Filed: 09/07/18 18:44> Assessment and Plan - Assessment (1) Acute kidney injury Code(s): N17.9 - Acute kidney failure, unspecified Status: Acute Plan: Acute kidney injury requiring hemodialysis. 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 Creatinine was noted to 0.81 on May 04, 2018. Hemodialysis started at [facility] on June 26. If remain HD dependent for 3 months, will label ESRD. Patient creatinine relatively unchanged at 3.56, K at 4.9, will hold hemodialysis today Continue lasix daily Avoid nephrotoxins. Labs ordered daily. Will follow UOP, BMP, and watch for renal recovery. (2) Endocarditis Code(s): I38 - Endocarditis, valve unspecified Status: Acute Qualifiers: Endocarditis type: infective Infective endocarditis organism: bacterial Chronicity: acute Qualified Code(s): I33.0 - Acute and subacute infective endocarditis Plan: Antibiotics completed. (3) Hyperkalemia Code(s): E87.5 - Hyperkalemia Status: Acute Plan: Resolved labs in AM <Debbie Godinez - Last Filed: 09/05/18 15:08> - Assessment (1) Acute kidney injury Code(s): N17.9 - Acute kidney failure, unspecified Status: Acute Plan: Patient seen and examined, agree with above. Creatinine is stable and K is normal. Hold HD for today and follow the urine out put and BMP. (2) Endocarditis Code(s): I38 - Endocarditis, valve unspecified Status: Acute Qualifiers: Endocarditis type: infective Infective endocarditis organism: bacterial Chronicity: acute Qualified Code(s): I33.0 - Acute and subacute infective endocarditis (3) Hyperkalemia Code(s): E87.5 - Hyperkalemia Status: Acute <Bhargav Monge - Last Filed: 09/07/18 18:44>
--- NOTE | 2018-09-05 10:47 | P.PNIM ---
Subjective Interval history: in no acute distress. looks comfortable. BP trend noted. d/w the RN at the bedside. Physical Exam Vital signs: Vital Signs 09/04/18 12:00 09/04/18 12:03 09/04/18 20:00 Temperature 97.7 F 98.7 F Pulse Rate 87 85 Respiratory Rate 18 16 Blood Pressure 110/75 122/81 Pulse Oximetry 95 97 93 L 09/05/18 00:00 09/05/18 08:00 09/05/18 10:11 Temperature 98.1 F 97.8 F Pulse Rate 103 H 75 Respiratory Rate 20 18 Blood Pressure 137/63 79/50 L 100/62 Pulse Oximetry 96 99 09/05/18 10:12 Temperature Pulse Rate Respiratory Rate Blood Pressure 98/68 L Pulse Oximetry Intake & Output 09/04/18 09/05/18 09/05/18 18:59 06:59 18:59 Intake Total 910 / 910 Output Total 350 / 350 200 / 200 Balance 560 / 560 -200 / -200 Weight 59.7 kg Intake: Oral 910 / 910 Output: Urine 350 / 350 200 / 200 Other: Date of Last Bowel Movement 09/04/18 09/04/18 09/05/18 # Bowel Movements 2 - Constitutional no acute distress - Routine Respiratory Exam Present: CTA bilaterally - Routine Cardiovascular Exam Present: RRR - Routine Abdominal Exam Present: soft - Routine Extremities Exam Comments: no pedal edema. - Routine Neurological Exam Present: alert Results - Labs CBC & Chem 7: 09/02/18 07:19 09/05/18 05:58 Laboratory Results - last 24 hr 09/05/18 05:58 Sodium 132 L Potassium 4.9 Chloride 97 L Carbon Dioxide 23.6 Anion Gap 11 BUN 58 H Creatinine 3.56 H Estimated GFR 15 L Random Glucose 85 Calcium 8.1 L Assessment and Plan - Assessment (1) IV drug abuse Code(s): F19.10 - Other psychoactive substance abuse, uncomplicated Status: Acute (2) Endocarditis Code(s): I38 - Endocarditis, valve unspecified Status: Acute (3) Sepsis Code(s): A41.9 - Sepsis, unspecified organism Status: Resolved (4) End-stage renal disease (ESRD) Code(s): N18.6 - End stage renal disease Status: Acute (5) Ascites Code(s): R18.8 - Other ascites Status: Acute (6) Acute kidney injury Code(s): N17.9 - Acute kidney failure, unspecified Status: Acute - Plan This is a 28-year-old female with infective tricuspid valve endocarditis and multiorgan dysfunction secondary to endocarditis. Remains in heart failure and volume overload, and associated organ failure, including severe renal failure requiring renal replacement therapy. continue to daily pull fluid by HD. Broad spectrum abx. overall prognosis is quite poor given history of leaving AMA. Completed treatment for urinary cicso. Completed ~6 week regimen of IV ancef for MSSA bacteremia on 08/14. Infective tricuspid valve endocarditis Moderate tricuspid valve regurgitation Mixed septic and cardiogenic shock secondary to infective endocarditis- resolving. Bedside echo shows large tricuspid regurgitation with moderate to severe TR With noncompliance and multiple AMA discharges, Not a candidate for valve replacement until she can complete antibiotic therapy and demonstrate medical compliance by not leaving AMA. -Per ID patient, completed Ancef for MSSA on 08/14 -Continue Lasix 40 mg p.o.daily, monitor BMP. Sinus tachycardia - overall improved. -continue Lopressor 25 mg p.o. twice daily End-stage renal disease/hyponatremia/hyperkalemia -Patient came with outside hospital dialysis access in place. -Perm cath in place, nephrology following, appreciate assistance -Continue renal diet with fluid restriction 1.5L -Nephrology following -Hemodialysis on Wednesday -Wednesday -Wednesday. -Monitor renal function. Ascites Secondary to severe renal injury and suspected CHF -Paracentesis 07/17 with 2.1L removed -paracentesis 08/11 with 2.8 L. -paracentesis 08/29. -continue dialysis for volume management. Paracentesis as needed. Pleuritic chest pain/ Hypoxemia Pt complains of chest pain with deep breathing. Repeat CXR stable, suggestive of fluid overload. Likely s/t refusing dialysis. -dialysis planned 09/01. -hold off on antibiotics as afebrile and without leukocytosis. -oxygen and nebs as needed. -incentive spirometry. IV drug dependence -prn oxycodone to prevent withdrawal -Counseling given. Thrombocytopenia- improved. -Stopped heparin, patient has been refusing. Depressed, likely situational Anxious -Psych attempted to evaluate 08/21, patient refused to speak to them. -Re-evaluated on 08/23 and provided psychosocial education and support for her anxiety and depression. -Continue Xanax 0.25 mg p.o. every 8 as needed for anxiety -Continue Prozac DVT Prophylaxis: SCDs Discharge Planning: needs HD. dc planning in progress. (2) Endocarditis Qualifiers: Endocarditis type: infective Infective endocarditis organism: bacterial Chronicity: acute Qualified Code(s): I33.0 - Acute and subacute infective endocarditis (5) Ascites Qualifiers: Ascites type: other type Qualified Code(s): R18.8 - Other ascites
[2018-09-05] MEDS: ALPRAZolam 0.25 MG Tablet PO PRN ×2 (14:34→20:14)
[2018-09-05] MEDS: QUEtiapine 25 MG Tablet PO SCH (20:14)
--- NOTE | 2018-09-06 05:18 | ECG ---
Date Performed: 09/05/2018 Time Performed: 19:05:22 PTAGE: 28 years EKG: Sinus rhythm POSSIBLE ANTERIOR MYOCARDIAL INFARCTION , PROBABLY OLD Nonspecific T wave changes ABNORMAL ECG Rom red to prior electrocardiogram, Rate has slowed. PREVIOUS TRACING : 07/13/2018 20.18 DOCTOR: Memo Espinoza Interpretating Date/Time 09/06/2018 05:16:22
[2018-09-06] MEDS: ALPRAZolam 0.25 MG Tablet PO PRN ×3 (06:43→20:18)
[2018-09-06 08:29] LABS: Baso # (Auto) 0.1 th/mm3 (0.0-0.2); Eos # (Auto) 0.1 th/mm3 (0.0-0.4); Eos % (Auto) 1.4 % (0.0-4.0); Hematocrit 35.1 % (35.0-46.0); Hemoglobin 10.9 gm/dL (11.6-15.3); Lymph # (Auto) 1.9 th/mm3 (1.0-4.8); Lymph % (Auto) 20.9 % (9.0-44.0); Mean Corpuscular HGB Conc 31.2 % (32.0-36.0); Mean Corpuscular Hemoglobin 29.8 pg (27.0-34.0); Mean Corpuscular Volume 95.4 fL (80.0-100.0); Mean Platelet Volume 8.4 fL (7.0-11.0); Mono # (Auto) 0.5 th/mm3 (0.0-0.9); Neut # (Auto) 6.4 th/mm3 (1.8-7.7); Neut % (Auto) 70.7 % (16.0-70.0); Platelet Count 172 th/mm3 (150-450); Red Blood Count 3.68 mil/mm3 (4.00-5.30); Red Cell Distribution Width 20.4 % (11.6-17.2)
[2018-09-06 08:56] LABS: Albumin 1.9 g/dL (3.4-5.0); Carbon Dioxide 23.4 meq/L (21.0-32.0); Potassium 4.5 meq/L (3.5-5.1)
[2018-09-06 08:57] LABS: Phosphorus 3.9 mg/dL (2.5-4.9)
[2018-09-06 09:01] LABS: Troponin I 0.29 ng/mL (0.02-0.05)
--- NOTE | 2018-09-06 10:03 | P.PNNP ---
Subjective Interval history: Does not have any acute complaints. Creatinine stable 3.6, on O2 6 liters. Will proceed with dialysis today. <Debbie Godinez - Last Filed: 09/06/18 12:13> Physical Exam Vital signs: Vital Signs 09/05/18 10:11 09/05/18 10:12 09/05/18 12:00 Temperature 97.9 F Pulse Rate 82 Respiratory Rate 18 Blood Pressure 100/62 98/68 L 109/80 Pulse Oximetry 98 09/05/18 16:00 09/05/18 16:53 09/05/18 20:00 Temperature 97.6 F 98.3 F Pulse Rate 79 80 85 Respiratory Rate 18 16 20 Blood Pressure 104/78 122/85 Pulse Oximetry 99 94 L 09/05/18 20:44 09/06/18 00:00 Temperature 97.8 F Pulse Rate 72 Respiratory Rate 20 20 Blood Pressure 115/89 Pulse Oximetry 94 L Intake & Output 09/05/18 09/06/18 09/06/18 18:59 06:59 18:59 Intake Total 577 / 577 Output Total 300 / 300 Balance -300 / -300 577 / 577 Weight 58.7 kg Intake: Oral 577 / 577 Output: Urine 300 / 300 Other: # Voids 1 Date of Last Bowel Movement 09/05/18 # Bowel Movements 1 Narrative: GENERAL: In no apparent distress. SKIN: Warm and dry. Right upper chest permacath in place CARDIOVASCULAR: Regular rate and rhythm. Positive murmur RESPIRATORY: Crackles throughout. GASTROINTESTINAL: Abdomen soft, non-tender, distended. MUSCULOSKELETAL: Extremities without clubbing, cyanosis, or edema. No obvious deformities. PSYCH: Flat affect. <Debbie Godinez - Last Filed: 09/06/18 12:13> Vital signs: Vital Signs 09/08/18 00:00 09/08/18 08:00 09/08/18 10:18 Temperature 98.5 F 97.6 F Pulse Rate 96 H 75 Respiratory Rate 20 16 Blood Pressure 125/87 124/76 Pulse Oximetry 96 96 96 09/08/18 11:42 09/08/18 14:59 09/08/18 15:45 Temperature 97.8 F 98.3 F 98.2 F Pulse Rate 75 78 80 Respiratory Rate 18 20 20 Blood Pressure 117/85 124/86 121/90 Pulse Oximetry 96 96 94 L 09/08/18 15:59 09/08/18 20:00 Temperature 98.9 F 97.7 F Pulse Rate 82 80 Respiratory Rate 20 18 Blood Pressure 122/88 108/77 Pulse Oximetry 94 L 94 L Intake & Output 09/08/18 09/08/18 09/09/18 06:59 18:59 06:59 Intake Total 430 / 430 Balance 430 / 430 Weight 58.9 kg Intake: Oral 430 / 430 Other: # Voids 1 # Bowel Movements 0 <Bhargav Monge - Last Filed: 09/08/18 21:55> Assessment and Plan - Assessment (1) Acute kidney injury Code(s): N17.9 - Acute kidney failure, unspecified Status: Acute Plan: Acute kidney injury requiring hemodialysis. 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 Creatinine was noted to 0.81 on May 04, 2018. Hemodialysis started at [facility] on June 26. If remain HD dependent for 3 months, will label ESRD. Patient creatinine relatively unchanged at 3.63, K at 4.5 Continue lasix daily Avoid nephrotoxins. Will follow UOP, BMP, and watch for renal recovery. Proceed with dialysis today mainly for fluid removal. (2) Endocarditis Code(s): I38 - Endocarditis, valve unspecified Status: Acute Qualifiers: Endocarditis type: infective Infective endocarditis organism: bacterial Chronicity: acute Qualified Code(s): I33.0 - Acute and subacute infective endocarditis Plan: Antibiotics completed. (3) Hyperkalemia Code(s): E87.5 - Hyperkalemia Status: Acute Plan: Resolved labs in AM <Debbie Godinez - Last Filed: 09/06/18 12:13> - Assessment (1) Acute kidney injury Code(s): N17.9 - Acute kidney failure, unspecified Status: Acute Plan: Patient seen and examined, agree with above. Patient was schedule to get HD. She has been refusing, explained the importance, but refusing. Follow the urine out put and BMP. (2) Endocarditis Code(s): I38 - Endocarditis, valve unspecified Status: Acute Qualifiers: Endocarditis type: infective Infective endocarditis organism: bacterial Chronicity: acute Qualified Code(s): I33.0 - Acute and subacute infective endocarditis (3) Hyperkalemia Code(s): E87.5 - Hyperkalemia Status: Acute <Bhargav Monge - Last Filed: 09/08/18 21:55>
[2018-09-06] MEDS: Metoprolol Tartrate 25 MG Tablet PO SCH ×2 (10:28→20:18)
[2018-09-06] MEDS: Furosemide 40 MG Tablet PO SCH (10:28)
[2018-09-06] MEDS: Famotidine 20 MG Tablet PO SCH ×2 (10:28→20:18)
[2018-09-06] MEDS: FLUoxetine 10 MG Capsule PO SCH (10:28)
[2018-09-06] MEDS: Sodium Chloride 0.9% 2 ML Flush BID IV.FLUSH SCH ×2 (10:29→23:14)
--- NOTE | 2018-09-06 11:37 | P.PNIM ---
Subjective Interval history: in no acute distress. no chest pain or sob. complaining of abdominal distention. Physical Exam Vital signs: Vital Signs 09/05/18 12:00 09/05/18 16:00 09/05/18 16:53 Temperature 97.9 F 97.6 F Pulse Rate 82 79 80 Respiratory Rate 18 18 16 Blood Pressure 109/80 104/78 Pulse Oximetry 98 99 09/05/18 20:00 09/05/18 20:44 09/06/18 00:00 Temperature 98.3 F 97.8 F Pulse Rate 85 72 Respiratory Rate 20 20 20 Blood Pressure 122/85 115/89 Pulse Oximetry 94 L 94 L Intake & Output 09/05/18 09/06/18 09/06/18 18:59 06:59 18:59 Intake Total 577 / 577 Output Total 300 / 300 Balance -300 / -300 577 / 577 Weight 58.7 kg Intake: Oral 577 / 577 Output: Urine 300 / 300 Other: # Voids 1 Date of Last Bowel Movement 09/05/18 # Bowel Movements 1 - Constitutional no acute distress - Routine Respiratory Exam Present: CTA bilaterally - Routine Cardiovascular Exam Present: RRR - Routine Abdominal Exam Present: soft, distended - Routine Extremities Exam Comments: no pedal edema. - Routine Neurological Exam Present: alert Results - Labs CBC & Chem 7: 09/06/18 07:48 09/06/18 07:48 Laboratory Results - last 24 hr 09/05/18 09/05/18 09/06/18 18:40 18:40 07:48 WBC 9.0 RBC 3.68 L Hgb 10.9 L Hct 35.1 MCV 95.4 MCH 29.8 MCHC 31.2 L RDW 20.4 H Plt Count 172 MPV 8.4 Neut % (Auto) 70.7 H Lymph % (Auto) 20.9 Lamb % (Auto) 6.0 Eos % (Auto) 1.4 Baso % (Auto) 1.0 Neut # (Auto) 6.4 Lymph # (Auto) 1.9 Lamb # (Auto) 0.5 Eos # (Auto) 0.1 Baso # (Auto) 0.1 WBC Differential . Differential Comment Auto diff final Sodium Potassium Chloride Carbon Dioxide Anion Gap BUN Creatinine Estimated GFR Random Glucose Calcium Phosphorus Total Creatine Kinase 48 Troponin I 0.50 H Albumin 09/06/18 07:48 WBC RBC Hgb Hct MCV MCH MCHC RDW Plt Count MPV Neut % (Auto) Lymph % (Auto) Lamb % (Auto) Eos % (Auto) Baso % (Auto) Neut # (Auto) Lymph # (Auto) Lamb # (Auto) Eos # (Auto) Baso # (Auto) WBC Differential Differential Comment Sodium 135 L Potassium 4.5 Chloride 100 Carbon Dioxide 23.4 Anion Gap 12 BUN 61 H Creatinine 3.63 H Estimated GFR 15 L Random Glucose 139 H Calcium 8.0 L Phosphorus 3.9 Total Creatine Kinase Troponin I 0.29 H D Albumin 1.9 L Assessment and Plan - Assessment (1) IV drug abuse Code(s): F19.10 - Other psychoactive substance abuse, uncomplicated Status: Acute (2) Endocarditis Code(s): I38 - Endocarditis, valve unspecified Status: Acute (3) Sepsis Code(s): A41.9 - Sepsis, unspecified organism Status: Resolved (4) End-stage renal disease (ESRD) Code(s): N18.6 - End stage renal disease Status: Acute (5) Ascites Code(s): R18.8 - Other ascites Status: Acute (6) Acute kidney injury Code(s): N17.9 - Acute kidney failure, unspecified Status: Acute - Plan This is a 28-year-old female with infective tricuspid valve endocarditis and multiorgan dysfunction secondary to endocarditis. Remains in heart failure and volume overload, and associated organ failure, including severe renal failure requiring renal replacement therapy. continue to daily pull fluid by HD. Broad spectrum abx. overall prognosis is quite poor given history of leaving AMA. Completed treatment for urinary cisco. Completed ~6 week regimen of IV ancef for MSSA bacteremia on 08/14. Infective tricuspid valve endocarditis Moderate tricuspid valve regurgitation Mixed septic and cardiogenic shock secondary to infective endocarditis- resolving. elevated troponin; no chest pain with no acute St-T changes on EKG- likely due to renal insufficiency. Bedside echo shows large tricuspid regurgitation with moderate to severe TR With noncompliance and multiple AMA discharges, Not a candidate for valve replacement until she can complete antibiotic therapy and demonstrate medical compliance by not leaving AMA. -Per ID patient, completed Ancef for MSSA on 08/14 -Continue Lasix 40 mg p.o.daily, monitor BMP. Sinus tachycardia - overall improved. -continue Lopressor 25 mg p.o. twice daily End-stage renal disease/hyponatremia/hyperkalemia -Patient came with outside hospital dialysis access in place. -Perm cath in place, nephrology following, appreciate assistance -Continue renal diet with fluid restriction 1.5L -Nephrology following -was on Hemodialysis on Wednesday -Wednesday -Wednesday- now HD on hold; continue to monitor the renal function off HD. Ascites Secondary to severe renal injury and suspected CHF -Paracentesis 07/17 with 2.1L removed -paracentesis 08/11 with 2.8 L. -paracentesis 08/29. -continue dialysis for volume management. Paracentesis as needed. Pleuritic chest pain/ Hypoxemia Pt complains of chest pain with deep breathing. Repeat CXR stable, suggestive of fluid overload. Likely s/t refusing dialysis. -dialysis planned 09/01. -hold off on antibiotics as afebrile and without leukocytosis. -oxygen and nebs as needed. -incentive spirometry. IV drug dependence -prn oxycodone to prevent withdrawal -Counseling given. Thrombocytopenia- improved. -Stopped heparin, patient has been refusing. Depressed, likely situational Anxious -Psych attempted to evaluate 08/21, patient refused to speak to them. -Re-evaluated on 08/23 and provided psychosocial education and support for her anxiety and depression. -Continue Xanax 0.25 mg p.o. every 8 as needed for anxiety -Continue Prozac DVT Prophylaxis: SCDs Discharge Planning: needs HD. dc planning in progress. (2) Endocarditis Qualifiers: Endocarditis type: infective Infective endocarditis organism: bacterial Chronicity: acute Qualified Code(s): I33.0 - Acute and subacute infective endocarditis (5) Ascites Qualifiers: Ascites type: other type Qualified Code(s): R18.8 - Other ascites
[2018-09-06] MEDS: QUEtiapine 25 MG Tablet PO SCH (20:18)
[2018-09-07 05:05] LABS: Calcium 8.3 mg/dL (8.5-10.1); Carbon Dioxide 21.6 meq/L (21.0-32.0); Potassium 5.4 meq/L (3.5-5.1)
[2018-09-07] MEDS: FLUoxetine 10 MG Capsule PO SCH (10:51)
[2018-09-07] MEDS: Famotidine 20 MG Tablet PO SCH ×2 (10:51→21:07)
[2018-09-07] MEDS: Metoprolol Tartrate 25 MG Tablet PO SCH ×2 (10:52→21:08)
[2018-09-07] MEDS: Furosemide 40 MG Tablet PO SCH (10:52)
[2018-09-07] MEDS: ALPRAZolam 0.25 MG Tablet PO PRN ×2 (10:52→17:53)
[2018-09-07] MEDS: Sodium Chloride 0.9% 2 ML Flush BID IV.FLUSH SCH ×2 (10:52→21:08)
--- NOTE | 2018-09-07 11:44 | P.PNIM ---
Subjective Interval history: f/u; TED in no acute distress. no chest pain or sob. Physical Exam Vital signs: Vital Signs 09/06/18 12:00 09/06/18 16:00 09/07/18 00:00 Temperature 97.3 F L 97.6 F 97.1 F L Pulse Rate 88 91 H 90 Respiratory Rate 18 17 18 Blood Pressure 121/91 H 128/81 121/92 H Pulse Oximetry 95 99 99 09/07/18 04:00 09/07/18 08:00 09/07/18 11:11 Temperature 98.7 F 99.3 F Pulse Rate 84 76 Respiratory Rate 18 17 Blood Pressure 114/8 L 114/78 Pulse Oximetry 92 L 95 97 Intake & Output 09/06/18 09/07/18 09/07/18 18:59 06:59 18:59 Intake Total 1188 / 1188 240 / 240 Output Total 900 / 900 Balance 1188 / 1188 -660 / -660 Weight 58.8 kg Intake: Oral 1188 / 1188 240 / 240 Output: Urine 900 / 900 Other: Date of Last Bowel Movement 09/05/18 09/07/18 - Constitutional no acute distress - Routine Respiratory Exam Present: CTA bilaterally - Routine Cardiovascular Exam Present: RRR - Routine Abdominal Exam Present: soft, distended - Routine Extremities Exam Comments: no pedal edema. - Routine Neurological Exam Present: alert, oriented X3 Results - Labs CBC & Chem 7: 09/06/18 07:48 09/07/18 04:15 Laboratory Results - last 24 hr 09/06/18 09/07/18 13:00 04:15 Sodium 133 L Potassium 5.4 H D Chloride 99 Carbon Dioxide 21.6 Anion Gap 12 BUN 69 H Creatinine 3.69 H Estimated GFR 15 L Random Glucose 88 Calcium 8.3 L Troponin I 0.27 H Assessment and Plan - Assessment (1) IV drug abuse Code(s): F19.10 - Other psychoactive substance abuse, uncomplicated Status: Acute (2) Endocarditis Code(s): I38 - Endocarditis, valve unspecified Status: Acute (3) Sepsis Code(s): A41.9 - Sepsis, unspecified organism Status: Resolved (4) End-stage renal disease (ESRD) Code(s): N18.6 - End stage renal disease Status: Acute (5) Ascites Code(s): R18.8 - Other ascites Status: Acute (6) Acute kidney injury Code(s): N17.9 - Acute kidney failure, unspecified Status: Acute - Plan This is a 28-year-old female with infective tricuspid valve endocarditis and multiorgan dysfunction secondary to endocarditis. Remains in heart failure and volume overload, and associated organ failure, including severe renal failure requiring renal replacement therapy. continue to daily pull fluid by HD. Broad spectrum abx. overall prognosis is quite poor given history of leaving AMA. Completed treatment for urinary cisco. Completed ~6 week regimen of IV ancef for MSSA bacteremia on 08/14. Infective tricuspid valve endocarditis Moderate tricuspid valve regurgitation Mixed septic and cardiogenic shock secondary to infective endocarditis- resolving. elevated troponin; no chest pain with no acute St-T changes on EKG- likely due to renal insufficiency. Bedside echo shows large tricuspid regurgitation with moderate to severe TR With noncompliance and multiple AMA discharges, Not a candidate for valve replacement until she can complete antibiotic therapy and demonstrate medical compliance by not leaving AMA. -Per ID patient, completed Ancef for MSSA on 08/14 -Continue Lasix 40 mg p.o.daily, monitor BMP. Sinus tachycardia - overall improved. -continue Lopressor 25 mg p.o. twice daily End-stage renal disease/hyponatremia/hyperkalemia -Patient came with outside hospital dialysis access in place. -Perm cath in place, nephrology following, appreciate assistance -Continue renal diet with fluid restriction 1.5L -Nephrology following -was on Hemodialysis on Wednesday -Wednesday -Wednesday- now HD on hold; continue to monitor the renal function off HD. Ascites Secondary to severe renal injury and suspected CHF -Paracentesis 07/17 with 2.1L removed -paracentesis 08/11 with 2.8 L. -paracentesis 08/29. -continue dialysis for volume management. Paracentesis as needed. elevated troponin- likely due to renal failure -chest pain free and no acute St-T changes on EKG IV drug dependence -prn oxycodone to prevent withdrawal -Counseling given. Thrombocytopenia- improved. -Stopped heparin, patient has been refusing. Depressed, likely situational Anxious -Psych attempted to evaluate 08/21, patient refused to speak to them. -Re-evaluated on 08/23 and provided psychosocial education and support for her anxiety and depression. -Continue Xanax 0.25 mg p.o. every 8 as needed for anxiety -Continue Prozac DVT Prophylaxis: SCDs Discharge Planning: needs HD. dc planning in progress. (2) Endocarditis Qualifiers: Endocarditis type: infective Infective endocarditis organism: bacterial Chronicity: acute Qualified Code(s): I33.0 - Acute and subacute infective endocarditis (5) Ascites Qualifiers: Ascites type: other type Qualified Code(s): R18.8 - Other ascites
[2018-09-07] MEDS ORDERED: Sodium Polystyrene Sulfonate/Sorbitol Liq 15 GM/60 ML UDC PO ONE (14:05)
--- NOTE | 2018-09-07 15:10 | P.PNNP ---
Subjective Interval history: Seen in AM. Creatinine at 3.69 and hyperkalemic at 5.4. Hemodialysis planned for yesterday but patient refused to go. Hemodialysis planned for today, but patient has refused again. Will treat hyperkalemia. <Debbie Godinez - Last Filed: 09/07/18 15:06> Physical Exam Vital signs: Vital Signs 09/06/18 16:00 09/07/18 00:00 09/07/18 04:00 Temperature 97.6 F 97.1 F L 98.7 F Pulse Rate 91 H 90 84 Respiratory Rate 17 18 18 Blood Pressure 128/81 121/92 H 114/8 L Pulse Oximetry 99 99 92 L 09/07/18 08:00 09/07/18 11:11 09/07/18 12:00 Temperature 99.3 F 98.2 F Pulse Rate 76 78 Respiratory Rate 17 18 Blood Pressure 114/78 124/87 Pulse Oximetry 95 97 97 09/07/18 12:58 Temperature Pulse Rate Respiratory Rate Blood Pressure Pulse Oximetry 95 Intake & Output 09/06/18 09/07/18 09/07/18 18:59 06:59 18:59 Intake Total 1188 / 1188 240 / 240 Output Total 900 / 900 Balance 1188 / 1188 -660 / -660 Weight 58.8 kg Intake: Oral 1188 / 1188 240 / 240 Output: Urine 900 / 900 Other: Date of Last Bowel Movement 09/05/18 09/07/18 Narrative: GENERAL: Alert in NAD. SKIN: Warm and dry. Right upper chest permacath in place CARDIOVASCULAR: Regular rate and rhythm. Positive murmur RESPIRATORY: Lung sounds diminished. ON NC 6 liters. GASTROINTESTINAL: Abdomen soft, non-tender, distended. MUSCULOSKELETAL: Extremities without clubbing, cyanosis, or edema. No obvious deformities. PSYCH: Flat affect. <Debbie Godinez - Last Filed: 09/07/18 15:06> Vital signs: Vital Signs 09/08/18 20:00 09/08/18 20:56 09/09/18 00:00 Temperature 97.7 F 97.2 F L Pulse Rate 80 82 Respiratory Rate 18 18 Blood Pressure 108/77 117/86 Pulse Oximetry 94 L 95 94 L 09/09/18 08:00 09/09/18 16:00 Temperature 97.4 F L 98.3 F Pulse Rate 74 85 Respiratory Rate 16 18 Blood Pressure 113/79 108/70 Pulse Oximetry 97 93 L Intake & Output 09/08/18 09/09/18 09/09/18 18:59 06:59 18:59 Intake Total 480 / 480 Output Total 3000 / 3000 Balance 480 / 480 -3000 / -3000 Weight 58.9 kg Intake: Oral 480 / 480 Output: Hemodialysis Amount 3000 / 3000 Other: # Voids 1 <Bhargav Monge - Last Filed: 09/09/18 16:44> Assessment and Plan - Assessment (1) Acute kidney injury Code(s): N17.9 - Acute kidney failure, unspecified Status: Acute Plan: Acute kidney injury requiring hemodialysis. 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 Creatinine was noted to 0.81 on May 04, 2018. Hemodialysis started at [facility] on June 26. If remain HD dependent for 3 months, will label ESRD. Patients creatinine at 3.69, and potassium level fo 5.4 Hyperkalemia, kayaxalate ordered. Continue lasix daily Avoid nephrotoxins. Will follow UOP, BMP, and watch for renal recovery. Patient has been noncompliant and has refused the last 2 hemodialysis. (2) Endocarditis Code(s): I38 - Endocarditis, valve unspecified Status: Acute Qualifiers: Endocarditis type: infective Infective endocarditis organism: bacterial Chronicity: acute Qualified Code(s): I33.0 - Acute and subacute infective endocarditis Plan: Antibiotics completed. (3) Hyperkalemia Code(s): E87.5 - Hyperkalemia Status: Acute Plan: K 5.4, Kayexalate ordered. <Debbie Godinez - Last Filed: 09/07/18 15:06> - Assessment (1) Acute kidney injury Code(s): N17.9 - Acute kidney failure, unspecified Status: Acute Plan: Patient seen and examine, agree with above. Patient has slight increase in the Creatinine, K is 5.4 She has been refusing HD. I discuss with her, she does not want HD today. Will follow the urine out put and BMP. (2) Endocarditis Code(s): I38 - Endocarditis, valve unspecified Status: Acute Qualifiers: Endocarditis type: infective Infective endocarditis organism: bacterial Chronicity: acute Qualified Code(s): I33.0 - Acute and subacute infective endocarditis <Bhargav Monge - Last Filed: 09/09/18 16:44>
[2018-09-07] MEDS: QUEtiapine 25 MG Tablet PO SCH (21:07)
[2018-09-08 06:59] LABS: Calcium 8.5 mg/dL (8.5-10.1); Carbon Dioxide 22.7 meq/L (21.0-32.0)
[2018-09-08] MEDS: FLUoxetine 10 MG Capsule PO SCH (10:41)
[2018-09-08] MEDS: Furosemide 40 MG Tablet PO SCH (10:41)
[2018-09-08] MEDS: Famotidine 20 MG Tablet PO SCH ×2 (10:42→22:27)
[2018-09-08] MEDS: ALPRAZolam 0.25 MG Tablet PO PRN ×2 (10:47→19:59)
--- NOTE | 2018-09-08 10:51 | P.PNIM ---
Subjective Interval history: f/u; TED/ascites in no acute distress. but complaining of worsening abdominal distention and pressure. Physical Exam Vital signs: Vital Signs 09/07/18 11:11 09/07/18 12:00 09/07/18 12:58 Temperature 98.2 F Pulse Rate 78 Respiratory Rate 18 Blood Pressure 124/87 Pulse Oximetry 97 97 95 09/07/18 16:00 09/07/18 19:31 09/07/18 19:34 Temperature 97.7 F Pulse Rate 82 88 Respiratory Rate 20 26 H Blood Pressure 126/89 Pulse Oximetry 97 99 09/07/18 20:00 09/08/18 00:00 09/08/18 08:00 Temperature 97.1 F L 98.5 F 97.6 F Pulse Rate 96 H 96 H 75 Respiratory Rate 20 20 17 Blood Pressure 120/84 125/87 124/76 Pulse Oximetry 95 96 96 Intake & Output 09/07/18 09/08/18 09/08/18 18:59 06:59 18:59 Intake Total 720 / 720 430 / 430 Balance 720 / 720 430 / 430 Weight 58.9 kg Intake: Oral 720 / 720 430 / 430 Other: # Voids 4 1 Date of Last Bowel Movement 09/07/18 # Bowel Movements 1 0 - Constitutional no acute distress - Routine Respiratory Exam Present: CTA bilaterally - Routine Cardiovascular Exam Present: RRR - Routine Abdominal Exam Present: soft, distended - Routine Extremities Exam Comments: no pedal edema. - Routine Neurological Exam Present: alert, oriented X3 Results - Labs CBC & Chem 7: 09/06/18 07:48 09/08/18 06:07 Laboratory Results - last 24 hr 09/07/18 09/08/18 13:00 06:07 Sodium 135 L Potassium 5.1 5.0 Chloride 100 Carbon Dioxide 22.7 Anion Gap 12 BUN 73 H Creatinine 3.84 H Estimated GFR 14 L Random Glucose 85 Calcium 8.5 Assessment and Plan - Assessment (1) IV drug abuse Code(s): F19.10 - Other psychoactive substance abuse, uncomplicated Status: Acute (2) Endocarditis Code(s): I38 - Endocarditis, valve unspecified Status: Acute (3) Sepsis Code(s): A41.9 - Sepsis, unspecified organism Status: Resolved (4) End-stage renal disease (ESRD) Code(s): N18.6 - End stage renal disease Status: Acute (5) Ascites Code(s): R18.8 - Other ascites Status: Acute (6) Acute kidney injury Code(s): N17.9 - Acute kidney failure, unspecified Status: Acute - Plan This is a 28-year-old female with infective tricuspid valve endocarditis and multiorgan dysfunction secondary to endocarditis. Remains in heart failure and volume overload, and associated organ failure, including severe renal failure requiring renal replacement therapy. continue to daily pull fluid by HD. Broad spectrum abx. overall prognosis is quite poor given history of leaving AMA. Completed treatment for urinary cisco. Completed ~6 week regimen of IV ancef for MSSA bacteremia on 08/14. Infective tricuspid valve endocarditis Moderate tricuspid valve regurgitation Mixed septic and cardiogenic shock secondary to infective endocarditis- resolving. elevated troponin; no chest pain with no acute St-T changes on EKG- likely due to renal insufficiency. Bedside echo shows large tricuspid regurgitation with moderate to severe TR With noncompliance and multiple AMA discharges, Not a candidate for valve replacement until she can complete antibiotic therapy and demonstrate medical compliance by not leaving AMA. -Per ID patient, completed Ancef for MSSA on 08/14 -Continue Lasix 40 mg p.o.daily, monitor BMP. Sinus tachycardia - overall improved. -continue Lopressor 25 mg p.o. twice daily End-stage renal disease/hyponatremia/hyperkalemia -Patient came with outside hospital dialysis access in place. -Perm cath in place, nephrology following, appreciate assistance -Continue renal diet with fluid restriction 1.5L -Nephrology following -was on Hemodialysis on Wednesday -Wednesday -Wednesday- patient has been refusing the HD; continue to monitor the renal function off HD. Ascites Secondary to severe renal injury and suspected CHF -Paracentesis 07/17 with 2.1L removed -paracentesis 08/11 with 2.8 L. -paracentesis 08/29. -continue dialysis for volume management. Paracentesis as needed; will consult IR for repeated paracentesis. elevated troponin- likely due to renal failure -chest pain free and no acute St-T changes on EKG IV drug dependence -prn oxycodone to prevent withdrawal -Counseling given. Thrombocytopenia- improved. -Stopped heparin, patient has been refusing. Depressed, likely situational Anxious -Psych attempted to evaluate 08/21, patient refused to speak to them. -Re-evaluated on 08/23 and provided psychosocial education and support for her anxiety and depression. -Continue Xanax 0.25 mg p.o. every 8 as needed for anxiety -Continue Prozac DVT Prophylaxis: SCDs evaluated by palliative care. (2) Endocarditis Qualifiers: Endocarditis type: infective Infective endocarditis organism: bacterial Chronicity: acute Qualified Code(s): I33.0 - Acute and subacute infective endocarditis (5) Ascites Qualifiers: Ascites type: other type Qualified Code(s): R18.8 - Other ascites
[2018-09-08] MEDS: Sodium Chloride 0.9% 2 ML Flush BID IV.FLUSH SCH ×3 (11:19→22:27)
[2018-09-08] MEDS: Metoprolol Tartrate 25 MG Tablet PO SCH ×2 (11:19→22:27)
--- NOTE | 2018-09-08 14:58 | P.PNNP ---
Subjective Interval history: Seen in AM. Has agreed for HD today but then refused later in Day. Creatinine at 3.84 and Potassium level at 5.0. <Debbie Godinez - Last Filed: 09/08/18 14:52> Physical Exam Vital signs: Vital Signs 09/07/18 16:00 09/07/18 19:31 09/07/18 19:34 Temperature 97.7 F Pulse Rate 82 88 Respiratory Rate 20 26 H Blood Pressure 126/89 Pulse Oximetry 97 99 09/07/18 20:00 09/08/18 00:00 09/08/18 08:00 Temperature 97.1 F L 98.5 F 97.6 F Pulse Rate 96 H 96 H 75 Respiratory Rate 20 20 16 Blood Pressure 120/84 125/87 124/76 Pulse Oximetry 95 96 96 09/08/18 10:18 09/08/18 11:42 Temperature 97.8 F Pulse Rate 75 Respiratory Rate 18 Blood Pressure 117/85 Pulse Oximetry 96 96 Intake & Output 09/07/18 09/08/18 09/08/18 18:59 06:59 18:59 Intake Total 720 / 720 430 / 430 Balance 720 / 720 430 / 430 Weight 58.9 kg Intake: Oral 720 / 720 430 / 430 Other: # Voids 4 1 Date of Last Bowel Movement 09/07/18 # Bowel Movements 1 0 Narrative: GENERAL: Alert in NAD. SKIN: Warm and dry. Right upper chest permacath in place CARDIOVASCULAR: Regular rate and rhythm. Positive murmur RESPIRATORY: Lung sounds diminished. ON NC 6 GASTROINTESTINAL: Abdomen soft, non-tender, distended. MUSCULOSKELETAL: Extremities without clubbing, cyanosis, or edema. No obvious deformities. PSYCH: Flat affect. <Debbie Godinez - Last Filed: 09/08/18 14:52> Vital signs: Vital Signs 09/13/18 12:00 09/13/18 15:34 09/13/18 19:54 Temperature 97.1 F L 98.0 F Pulse Rate 97 H 83 Respiratory Rate 19 18 Blood Pressure 134/96 H 116/78 Pulse Oximetry 98 99 96 09/13/18 20:00 09/13/18 21:11 09/14/18 00:00 Temperature 97.7 F 98.1 F Pulse Rate 95 H 80 Respiratory Rate 17 17 Blood Pressure 119/80 98/63 L Pulse Oximetry 97 97 93 L 09/14/18 04:00 09/14/18 08:00 Temperature 97.1 F L 97.5 F L Pulse Rate 72 75 Respiratory Rate 18 17 Blood Pressure 104/67 101/68 Pulse Oximetry 96 93 L Intake & Output 09/13/18 09/14/18 09/14/18 18:59 06:59 18:59 Intake Total 1000 / 1000 360 / 360 Balance 1000 / 1000 360 / 360 Weight 58.2 kg Intake: Oral 1000 / 1000 360 / 360 Other: # Voids 1 1 Date of Last Bowel Movement 09/12/18 # Bowel Movements 1 <Bhargav Monge - Last Filed: 09/14/18 10:26> Assessment and Plan - Assessment (1) Acute kidney injury Code(s): N17.9 - Acute kidney failure, unspecified Status: Acute Plan: Acute kidney injury requiring hemodialysis. 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 Creatinine was noted to 0.81 on May 04, 2018. Hemodialysis started at [facility] on June 26. If remain HD dependent for 3 months, will label ESRD. Patients creatinine at 3.84, and potassium level fo 5.0 Continue lasix daily Avoid nephrotoxins. Will follow UOP, BMP, and watch for renal recovery. Could possible benefit from HD for fluid removal but has refused dialysis today. (2) Endocarditis Code(s): I38 - Endocarditis, valve unspecified Status: Acute Qualifiers: Endocarditis type: infective Infective endocarditis organism: bacterial Chronicity: acute Qualified Code(s): I33.0 - Acute and subacute infective endocarditis Plan: Antibiotics completed. (3) Hyperkalemia Code(s): E87.5 - Hyperkalemia Status: Acute <Debbie Godinez - Last Filed: 09/08/18 14:52> - Assessment (1) Acute kidney injury Code(s): N17.9 - Acute kidney failure, unspecified Status: Acute Plan: Patient seen and examined, agree with above. Patient has now K of 5.0, Creatinine increase slightly to 3.8, refusing HD. Watch urine out put and BMP closely. (2) Endocarditis Code(s): I38 - Endocarditis, valve unspecified Status: Acute Qualifiers: Endocarditis type: infective Infective endocarditis organism: bacterial Chronicity: acute Qualified Code(s): I33.0 - Acute and subacute infective endocarditis <Bhargav Monge - Last Filed: 09/14/18 10:26>
[2018-09-08] MEDS: QUEtiapine 25 MG Tablet PO SCH (22:27)
[2018-09-09] MEDS: Melatonin 5 MG Tablet PO PRN (00:24)
[2018-09-09] MEDS: Metoprolol Tartrate 25 MG Tablet PO SCH ×2 (08:08→20:34)
[2018-09-09] MEDS: FLUoxetine 10 MG Capsule PO SCH (08:08)
[2018-09-09] MEDS: Famotidine 20 MG Tablet PO SCH ×2 (08:08→20:31)
[2018-09-09] MEDS: Furosemide 40 MG Tablet PO SCH (08:08)
[2018-09-09 08:13] LABS: Calcium 8.2 mg/dL (8.5-10.1); Potassium 5.1 meq/L (3.5-5.1)
--- NOTE | 2018-09-09 10:55 | P.PNIM ---
Subjective Interval history: in no acute distress. looks comfortable. denies sob or chest pain. Physical Exam Vital signs: Vital Signs 09/08/18 11:42 09/08/18 14:59 09/08/18 15:45 Temperature 97.8 F 98.3 F 98.2 F Pulse Rate 75 78 80 Respiratory Rate 18 20 20 Blood Pressure 117/85 124/86 121/90 Pulse Oximetry 96 96 94 L 09/08/18 15:59 09/08/18 20:00 09/08/18 20:56 Temperature 98.9 F 97.7 F Pulse Rate 82 80 Respiratory Rate 20 18 Blood Pressure 122/88 108/77 Pulse Oximetry 94 L 94 L 95 09/09/18 00:00 Temperature 97.2 F L Pulse Rate 82 Respiratory Rate 18 Blood Pressure 117/86 Pulse Oximetry 94 L Intake & Output 09/08/18 09/09/18 09/09/18 18:59 06:59 18:59 Intake Total 480 / 480 Balance 480 / 480 Weight 58.9 kg Intake: Oral 480 / 480 Other: # Voids 1 - Constitutional no acute distress - Routine Respiratory Exam Present: CTA bilaterally - Routine Cardiovascular Exam Present: RRR - Routine Abdominal Exam Present: soft, distended - Routine Extremities Exam Comments: no pedal edema. - Routine Neurological Exam Present: alert, oriented X3 Results - Labs CBC & Chem 7: 09/06/18 07:48 09/09/18 06:27 Laboratory Results - last 24 hr 09/09/18 06:27 Sodium 136 Potassium 5.1 Chloride 100 Carbon Dioxide 23.0 Anion Gap 13 BUN 73 H Creatinine 3.82 H Estimated GFR 14 L Random Glucose 87 Calcium 8.2 L Assessment and Plan - Assessment (1) IV drug abuse Code(s): F19.10 - Other psychoactive substance abuse, uncomplicated Status: Acute (2) Endocarditis Code(s): I38 - Endocarditis, valve unspecified Status: Acute (3) Sepsis Code(s): A41.9 - Sepsis, unspecified organism Status: Resolved (4) End-stage renal disease (ESRD) Code(s): N18.6 - End stage renal disease Status: Acute (5) Ascites Code(s): R18.8 - Other ascites Status: Acute (6) Acute kidney injury Code(s): N17.9 - Acute kidney failure, unspecified Status: Acute - Plan This is a 28-year-old female with infective tricuspid valve endocarditis and multiorgan dysfunction secondary to endocarditis. Remains in heart failure and volume overload, and associated organ failure, including severe renal failure requiring renal replacement therapy. continue to daily pull fluid by HD. Broad spectrum abx. overall prognosis is quite poor given history of leaving AMA. Completed treatment for urinary cisco. Completed ~6 week regimen of IV ancef for MSSA bacteremia on 08/14. Infective tricuspid valve endocarditis Moderate tricuspid valve regurgitation Mixed septic and cardiogenic shock secondary to infective endocarditis- resolving. elevated troponin; no chest pain with no acute St-T changes on EKG- likely due to renal insufficiency. Bedside echo shows large tricuspid regurgitation with moderate to severe TR With noncompliance and multiple AMA discharges, Not a candidate for valve replacement until she can complete antibiotic therapy and demonstrate medical compliance by not leaving AMA. -Per ID patient, completed Ancef for MSSA on 08/14 -Continue Lasix 40 mg p.o.daily, monitor BMP. Sinus tachycardia - overall improved. -continue Lopressor 25 mg p.o. twice daily End-stage renal disease/hyponatremia/hyperkalemia -Patient came with outside hospital dialysis access in place. -Perm cath in place, nephrology following, appreciate assistance -Continue renal diet with fluid restriction 1.5L -Nephrology following -was on Hemodialysis on Wednesday -Wednesday -Wednesday- patient has been refusing the HD the past one week continue to monitor the renal function off HD. Ascites Secondary to severe renal injury and suspected CHF -Paracentesis 07/17 with 2.1L removed -paracentesis 08/11 with 2.8 L. -paracentesis 08/29. -continue dialysis for volume management. Paracentesis as needed; consulted IR for repeated paracentesis. elevated troponin- likely due to renal failure -chest pain free and no acute St-T changes on EKG IV drug dependence -prn oxycodone to prevent withdrawal -Counseling given. Thrombocytopenia- improved. -Stopped heparin, patient has been refusing. Depressed, likely situational Anxious -Psych attempted to evaluate 08/21, patient refused to speak to them. -Re-evaluated on 08/23 and provided psychosocial education and support for her anxiety and depression. -Continue Xanax 0.25 mg p.o. every 8 as needed for anxiety -Continue Prozac DVT Prophylaxis: SCDs evaluated by palliative care. Discharge Planning: monitoring the renal function- refusing HD so far. awaiting paracentesis. (2) Endocarditis Qualifiers: Endocarditis type: infective Infective endocarditis organism: bacterial Chronicity: acute Qualified Code(s): I33.0 - Acute and subacute infective endocarditis (5) Ascites Qualifiers: Ascites type: other type Qualified Code(s): R18.8 - Other ascites
[2018-09-09] MEDS: Sodium Chloride 0.9% 2 ML Flush BID IV.FLUSH SCH ×2 (12:04→20:34)
--- NOTE | 2018-09-09 12:16 | P.PNNP ---
Subjective Interval history: Seen during hemodialysis, tolerating well. Shortness of breath improved. S/P paracentesis yesterday. <Debbie Godinez - Last Filed: 09/09/18 12:08> Physical Exam Vital signs: Vital Signs 09/08/18 14:59 09/08/18 15:45 09/08/18 15:59 Temperature 98.3 F 98.2 F 98.9 F Pulse Rate 78 80 82 Respiratory Rate 20 20 20 Blood Pressure 124/86 121/90 122/88 Pulse Oximetry 96 94 L 94 L 09/08/18 20:00 09/08/18 20:56 09/09/18 00:00 Temperature 97.7 F 97.2 F L Pulse Rate 80 82 Respiratory Rate 18 18 Blood Pressure 108/77 117/86 Pulse Oximetry 94 L 95 94 L 09/09/18 08:00 Temperature 97.4 F L Pulse Rate 74 Respiratory Rate 18 Blood Pressure 113/79 Pulse Oximetry 97 Intake & Output 09/08/18 09/09/18 09/09/18 18:59 06:59 18:59 Intake Total 480 / 480 Balance 480 / 480 Weight 58.9 kg Intake: Oral 480 / 480 Other: # Voids 1 Narrative: GENERAL: Alert in NAD. SKIN: Warm and dry. Right upper chest permacath in place CARDIOVASCULAR: Regular rate and rhythm. Positive murmur RESPIRATORY: Lung sounds diminished. ON NC 6 GASTROINTESTINAL: Abdomen soft, non-tender, distended. MUSCULOSKELETAL: Extremities without clubbing, cyanosis, or edema. No obvious deformities. PSYCH: Flat affect. <Debbie Godinez - Last Filed: 09/09/18 12:08> Vital signs: Vital Signs 09/13/18 12:00 09/13/18 15:34 09/13/18 19:54 Temperature 97.1 F L 98.0 F Pulse Rate 97 H 83 Respiratory Rate 19 18 Blood Pressure 134/96 H 116/78 Pulse Oximetry 98 99 96 09/13/18 20:00 09/13/18 21:11 09/14/18 00:00 Temperature 97.7 F 98.1 F Pulse Rate 95 H 80 Respiratory Rate 17 17 Blood Pressure 119/80 98/63 L Pulse Oximetry 97 97 93 L 09/14/18 04:00 09/14/18 08:00 Temperature 97.1 F L 97.5 F L Pulse Rate 72 75 Respiratory Rate 18 17 Blood Pressure 104/67 101/68 Pulse Oximetry 96 93 L Intake & Output 09/13/18 09/14/18 09/14/18 18:59 06:59 18:59 Intake Total 1000 / 1000 360 / 360 Balance 1000 / 1000 360 / 360 Weight 58.2 kg Intake: Oral 1000 / 1000 360 / 360 Other: # Voids 1 1 Date of Last Bowel Movement 09/12/18 # Bowel Movements 1 <Bhargav Monge - Last Filed: 09/14/18 10:47> Assessment and Plan - Assessment (1) Acute kidney injury Code(s): N17.9 - Acute kidney failure, unspecified Status: Acute Plan: Acute kidney injury requiring hemodialysis. 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 Creatinine was noted to 0.81 on May 04, 2018. Hemodialysis started at [facility] on June 26. If remain HD dependent for 3 months, will label ESRD. Patients creatinine at 3.82, and potassium level fo 5.1. Continue lasix daily. Avoid nephrotoxins. Seen during hemodialysis will remove fluid as tolerated. Patients creatinine slightly increased today, potassium level normal. Last hemodialysis prior to today was on the 2nd secondary to patient refusing. Will watch through weekend there has been some improvement in creatinine and urinary output. Recommend to continue low potassium diet. (2) Endocarditis Code(s): I38 - Endocarditis, valve unspecified Status: Acute Qualifiers: Endocarditis type: infective Infective endocarditis organism: bacterial Chronicity: acute Qualified Code(s): I33.0 - Acute and subacute infective endocarditis Plan: Antibiotics completed. <Debbie Godinez - Last Filed: 09/09/18 12:08> - Assessment (1) Acute kidney injury Code(s): N17.9 - Acute kidney failure, unspecified Status: Acute Plan: Patient seen and examined, agree with above. Patient agreed for HD today, Watch for renal recovery. HD as needed. (2) Endocarditis Code(s): I38 - Endocarditis, valve unspecified Status: Acute Qualifiers: Endocarditis type: infective Infective endocarditis organism: bacterial Chronicity: acute Qualified Code(s): I33.0 - Acute and subacute infective endocarditis <Bhargav Monge - Last Filed: 09/14/18 10:47>
[2018-09-09] MEDS: QUEtiapine 25 MG Tablet PO SCH (20:31)
[2018-09-09] MEDS: ALPRAZolam 0.25 MG Tablet PO PRN (20:32)
[2018-09-10] MEDS: FLUoxetine 10 MG Capsule PO SCH (08:30)
[2018-09-10] MEDS: Famotidine 20 MG Tablet PO SCH ×3 (08:30→22:40)
[2018-09-10] MEDS: Furosemide 40 MG Tablet PO SCH (08:30)
[2018-09-10] MEDS: Sodium Chloride 0.9% 2 ML Flush BID IV.FLUSH SCH ×2 (08:32→20:02)
[2018-09-10] MEDS: Metoprolol Tartrate 25 MG Tablet PO SCH ×2 (08:32→19:59)
--- NOTE | 2018-09-10 10:39 | P.PNIM ---
Subjective Interval history: f/u; TED in no acute distress. no new complaints. Physical Exam Vital signs: Vital Signs 09/09/18 16:00 09/09/18 20:00 09/10/18 08:00 Temperature 98.3 F 98.7 F 97.7 F Pulse Rate 85 80 89 Respiratory Rate 18 17 20 Blood Pressure 108/70 96/58 L 98/61 L Pulse Oximetry 93 L 95 97 Intake & Output 09/09/18 09/10/18 09/10/18 18:59 06:59 18:59 Intake Total 800 / 800 480 / 480 Output Total 3000 / 3000 600 / 600 Balance -2200 / -2200 -120 / -120 Weight 58.9 kg Intake: Oral 800 / 800 480 / 480 Output: Urine 600 / 600 Hemodialysis Amount 3000 / 3000 Other: # Voids 6 - Constitutional no acute distress - Routine Respiratory Exam Present: CTA bilaterally - Routine Cardiovascular Exam Present: RRR - Routine Abdominal Exam Present: soft, distended (looks less distended today.) - Routine Extremities Exam Comments: no pedal edema. - Routine Neurological Exam Present: alert, oriented X3 Results - Labs CBC & Chem 7: 09/06/18 07:48 09/09/18 06:27 Assessment and Plan - Assessment (1) IV drug abuse Code(s): F19.10 - Other psychoactive substance abuse, uncomplicated Status: Acute (2) Endocarditis Code(s): I38 - Endocarditis, valve unspecified Status: Acute (3) Sepsis Code(s): A41.9 - Sepsis, unspecified organism Status: Resolved (4) End-stage renal disease (ESRD) Code(s): N18.6 - End stage renal disease Status: Acute (5) Ascites Code(s): R18.8 - Other ascites Status: Acute (6) Acute kidney injury Code(s): N17.9 - Acute kidney failure, unspecified Status: Acute - Plan This is a 28-year-old female with infective tricuspid valve endocarditis and multiorgan dysfunction secondary to endocarditis. Remains in heart failure and volume overload, and associated organ failure, including severe renal failure requiring renal replacement therapy. continue to daily pull fluid by HD. Broad spectrum abx. overall prognosis is quite poor given history of leaving AMA. Completed treatment for urinary cisco. Completed ~6 week regimen of IV ancef for MSSA bacteremia on 08/14. Infective tricuspid valve endocarditis Moderate tricuspid valve regurgitation Mixed septic and cardiogenic shock secondary to infective endocarditis- resolving. elevated troponin; no chest pain with no acute St-T changes on EKG- likely due to renal insufficiency. Bedside echo shows large tricuspid regurgitation with moderate to severe TR With noncompliance and multiple AMA discharges, Not a candidate for valve replacement until she can complete antibiotic therapy and demonstrate medical compliance by not leaving AMA. -Per ID patient, completed Ancef for MSSA on 08/14 -Continue Lasix 40 mg p.o.daily, monitor BMP. Sinus tachycardia - overall improved. -continue Lopressor 25 mg p.o. twice daily End-stage renal disease/hyponatremia/hyperkalemia -Patient came with outside hospital dialysis access in place. -Perm cath in place, nephrology following, appreciate assistance -Continue renal diet with fluid restriction 1.5L -Nephrology following -was on Hemodialysis on Wednesday -Wednesday -Wednesday- continue to monitor the renal function . Ascites Secondary to severe renal injury and suspected CHF -Paracentesis 07/17 with 2.1L removed -paracentesis 08/11 with 2.8 L. -paracentesis 08/29. -paracentesis on 09/09. -continue dialysis for volume management. Paracentesis as needed. elevated troponin- likely due to renal failure -chest pain free and no acute St-T changes on EKG IV drug dependence -prn oxycodone to prevent withdrawal -Counseling given. Thrombocytopenia- improved. -Stopped heparin, patient has been refusing. Depressed, likely situational Anxious -Psych attempted to evaluate 08/21, patient refused to speak to them. -Re-evaluated on 08/23 and provided psychosocial education and support for her anxiety and depression. -Continue Xanax 0.25 mg p.o. every 8 as needed for anxiety -Continue Prozac DVT Prophylaxis: SCDs evaluated by palliative care. Discharge Planning: monitoring the renal function over the weekend. (2) Endocarditis Qualifiers: Endocarditis type: infective Infective endocarditis organism: bacterial Chronicity: acute Qualified Code(s): I33.0 - Acute and subacute infective endocarditis (5) Ascites Qualifiers: Ascites type: other type Qualified Code(s): R18.8 - Other ascites
[2018-09-10] MEDS: ALPRAZolam 0.25 MG Tablet PO PRN ×2 (13:07→19:58)
--- NOTE | 2018-09-10 17:02 | P.PNNP ---
Subjective Interval history: no acute complaints, feels thirsty Physical Exam Vital signs: Vital Signs 09/09/18 20:00 09/10/18 08:00 09/10/18 12:00 Temperature 98.7 F 97.7 F 97.9 F Pulse Rate 80 89 98 H Respiratory Rate 17 20 20 Blood Pressure 96/58 L 98/61 L 109/76 Pulse Oximetry 95 97 99 09/10/18 16:00 Temperature 98.8 F Pulse Rate 112 H Respiratory Rate 20 Blood Pressure 134/79 Pulse Oximetry 98 Intake & Output 09/09/18 09/10/18 09/10/18 18:59 06:59 18:59 Intake Total 800 / 800 480 / 480 600 / 600 Output Total 3000 / 3000 600 / 600 3 / 3 Balance -2200 / -2200 -120 / -120 597 / 597 Weight 58.9 kg Intake: Oral 800 / 800 480 / 480 600 / 600 Output: Urine 600 / 600 3 / 3 Hemodialysis Amount 3000 / 3000 Other: # Voids 6 Date of Last Bowel Movement 09/09/18 - Constitutional no acute distress - Routine HEENT Exam Head: Present: normocephalic Eye: Present: EOMI - Routine Neck Exam Present: supple - Routine Respiratory Exam Present: CTA bilaterally - Routine Cardiovascular Exam Present: RRR - Routine Abdominal Exam Present: soft - Routine Skin Exam Present: intact - Routine Neurological Exam Present: alert, oriented X3 - Detailed Neurological Exam: Coma Scale Eye Opening: Spontaneous - Routine Psychiatric Exam Present: normal affect Assessment and Plan - Assessment (1) Acute kidney injury Code(s): N17.9 - Acute kidney failure, unspecified Status: Acute Plan: Acute kidney injury requiring hemodialysis. 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 Creatinine was noted to 0.81 on May 04, 2018. Hemodialysis started at [facility] on June 26. If remain HD dependent for 3 months, will label ESRD. Continue HD MWF - planned next HD Wednesday Volume status, electrolytes stable. Continue lasix daily. Avoid nephrotoxins. Will watch through weekend to evaluate for improvement in creatinine and urinary output - however patient apparently not collecting all of her urine Recommend to continue low potassium diet. (2) Endocarditis Code(s): I38 - Endocarditis, valve unspecified Status: Acute Qualifiers: Endocarditis type: infective Infective endocarditis organism: bacterial Chronicity: acute Qualified Code(s): I33.0 - Acute and subacute infective endocarditis Plan: Antibiotics completed.
[2018-09-10] MEDS: Melatonin 5 MG Tablet PO PRN (19:58)
[2018-09-10] MEDS: QUEtiapine 25 MG Tablet PO SCH (19:59)
[2018-09-11 08:15] LABS: Hematocrit 34.4 % (35.0-46.0); Hemoglobin 10.8 gm/dL (11.6-15.3); Mean Corpuscular HGB Conc 31.4 % (32.0-36.0); Mean Corpuscular Volume 92.4 fL (80.0-100.0); Mean Platelet Volume 7.9 fL (7.0-11.0); Platelet Count 131 th/mm3 (150-450); Red Blood Count 3.73 mil/mm3 (4.00-5.30); Red Cell Distribution Width 19.3 % (11.6-17.2); White Blood Count 7.1 th/mm3 (4.0-11.0)
[2018-09-11] MEDS: Metoprolol Tartrate 25 MG Tablet PO SCH ×3 (08:33→22:54)
[2018-09-11] MEDS: FLUoxetine 10 MG Capsule PO SCH (08:33)
[2018-09-11] MEDS: Furosemide 40 MG Tablet PO SCH (08:33)
[2018-09-11] MEDS: Famotidine 20 MG Tablet PO SCH ×3 (08:34→22:54)
[2018-09-11] MEDS: ALPRAZolam 0.25 MG Tablet PO PRN ×2 (08:34→14:23)
[2018-09-11] MEDS: Sodium Chloride 0.9% 2 ML Flush BID IV.FLUSH SCH ×2 (08:37→22:54)
[2018-09-11 08:39] LABS: Alanine Aminotransferase 11 U/L (10-53); Albumin 1.9 g/dL (3.4-5.0); Anion Gap 11 meq/L (5-15); Aspartate Aminotransferase 17 U/L (15-37); Blood Urea Nitrogen 43 mg/dL (7-18); Calcium 8.2 mg/dL (8.5-10.1); Carbon Dioxide 23.9 meq/L (21.0-32.0); Chloride 100 meq/L (98-107); Glomerular Filtration Rate 20 mL/min (>89); Glucose,Random 63 mg/dL (74-106); Potassium 4.4 meq/L (3.5-5.1); Sodium 135 meq/L (136-145)
[2018-09-11 08:43] LABS: Alkaline Phosphatase 245 U/L (45-117); Total Protein 6.8 g/dL (6.4-8.2)
--- NOTE | 2018-09-11 10:02 | P.PNIM ---
Subjective Interval history: f/u; TED in no acute distress. no sob. no new complaints. Physical Exam Vital signs: Vital Signs 09/10/18 12:00 09/10/18 16:00 09/10/18 20:00 Temperature 97.9 F 98.8 F 99.2 F Pulse Rate 98 H 112 H 96 H Respiratory Rate 20 20 16 Blood Pressure 109/76 134/79 117/84 Pulse Oximetry 99 98 100 09/10/18 20:03 09/11/18 00:00 09/11/18 08:00 Temperature 98.2 F 97.6 F Pulse Rate 85 86 Respiratory Rate 17 17 Blood Pressure 102/61 111/72 Pulse Oximetry 98 96 95 Intake & Output 09/10/18 09/11/18 09/11/18 18:59 06:59 18:59 Intake Total 600 / 600 240 / 240 Output Total 5 / 5 Balance 595 / 595 240 / 240 Weight 58.4 kg Intake: Oral 600 / 600 240 / 240 Output: Urine 5 / 5 Other: # Voids 2 Date of Last Bowel Movement 09/09/18 09/11/18 - Constitutional no acute distress - Routine Respiratory Exam Present: CTA bilaterally - Routine Cardiovascular Exam Present: RRR - Routine Abdominal Exam Present: soft, distended (but looks less distended.) - Routine Extremities Exam Comments: no pedal edema. - Routine Neurological Exam Present: alert Results - Labs CBC & Chem 7: 09/11/18 07:07 09/11/18 07:07 Laboratory Results - last 24 hr 09/11/18 09/11/18 07:07 07:07 WBC 7.1 RBC 3.73 L Hgb 10.8 L Hct 34.4 L MCV 92.4 MCH 29.0 MCHC 31.4 L RDW 19.3 H Plt Count 131 L MPV 7.9 Sodium 135 L Potassium 4.4 Chloride 100 Carbon Dioxide 23.9 Anion Gap 11 BUN 43 H Creatinine 2.78 H Estimated GFR 20 L Random Glucose 63 L Calcium 8.2 L Total Bilirubin 0.8 AST 17 ALT 11 Alkaline Phosphatase 245 H Total Protein 6.8 Albumin 1.9 L Assessment and Plan - Assessment (1) IV drug abuse Code(s): F19.10 - Other psychoactive substance abuse, uncomplicated Status: Acute (2) Endocarditis Code(s): I38 - Endocarditis, valve unspecified Status: Acute (3) Sepsis Code(s): A41.9 - Sepsis, unspecified organism Status: Resolved (4) End-stage renal disease (ESRD) Code(s): N18.6 - End stage renal disease Status: Acute (5) Ascites Code(s): R18.8 - Other ascites Status: Acute (6) Acute kidney injury Code(s): N17.9 - Acute kidney failure, unspecified Status: Acute - Plan This is a 28-year-old female with infective tricuspid valve endocarditis and multiorgan dysfunction secondary to endocarditis. Remains in heart failure and volume overload, and associated organ failure, including severe renal failure requiring renal replacement therapy. continue to daily pull fluid by HD. Broad spectrum abx. overall prognosis is quite poor given history of leaving AMA. Completed treatment for urinary cisco. Completed ~6 week regimen of IV ancef for MSSA bacteremia on 08/14. Infective tricuspid valve endocarditis Moderate tricuspid valve regurgitation Mixed septic and cardiogenic shock secondary to infective endocarditis- resolving. elevated troponin; no chest pain with no acute St-T changes on EKG- likely due to renal insufficiency. Bedside echo shows large tricuspid regurgitation with moderate to severe TR With noncompliance and multiple AMA discharges, Not a candidate for valve replacement until she can complete antibiotic therapy and demonstrate medical compliance by not leaving AMA. -Per ID patient, completed Ancef for MSSA on 08/14 -Continue Lasix 40 mg p.o.daily, monitor BMP. Sinus tachycardia - overall improved. -continue Lopressor 25 mg p.o. twice daily End-stage renal disease/hyponatremia/hyperkalemia -Patient came with outside hospital dialysis access in place. -Perm cath in place, nephrology following, appreciate assistance -Continue renal diet with fluid restriction 1.5L -Nephrology following -was on Hemodialysis on Wednesday -Wednesday -Wednesday- continue to monitor the renal function . Ascites Secondary to severe renal injury and suspected CHF -Paracentesis 07/17 with 2.1L removed -paracentesis 08/11 with 2.8 L. -paracentesis 08/29. -paracentesis on 09/09. -continue dialysis for volume management. Paracentesis as needed. elevated troponin- likely due to renal failure -chest pain free and no acute St-T changes on EKG IV drug dependence -prn oxycodone to prevent withdrawal -Counseling given. Thrombocytopenia- improved. -Stopped heparin, patient has been refusing. Depressed, likely situational Anxious -Psych attempted to evaluate 08/21, patient refused to speak to them. -Re-evaluated on 08/23 and provided psychosocial education and support for her anxiety and depression. -Continue Xanax 0.25 mg p.o. every 8 as needed for anxiety -Continue Prozac DVT Prophylaxis: SCDs evaluated by palliative care. Discharge Planning: monitoring the renal function over the weekend. (2) Endocarditis Qualifiers: Endocarditis type: infective Infective endocarditis organism: bacterial Chronicity: acute Qualified Code(s): I33.0 - Acute and subacute infective endocarditis (5) Ascites Qualifiers: Ascites type: other type Qualified Code(s): R18.8 - Other ascites
[2018-09-11] MEDS: Acetaminophen 325 MG Tablet PO PRN (19:43)
[2018-09-11] MEDS: QUEtiapine 25 MG Tablet PO SCH ×2 (19:43→22:54)
--- NOTE | 2018-09-12 07:01 | US ---
EXAM DATE: 09/08/2018 3:56 PM EST AGE/SEX: 28 years / Female INDICATIONS: Ascites. CLINICAL DATA: This is the patient's sequela encounter. Patient reports that signs and symptoms have been present for 1 week and indicates a pain score of 2/10. MEDICAL/SURGICAL HISTORY: Renal disease, end stage. Endocarditis. IVDU. Sepsis. Dialysis. Trisha cystitis. . Paracentesis. COMPARISON: [facility] [place], [place] PARACENTESIS ABD W/IMAGE, 08/29/2018. . FLUID: Total volume of 3700 cc of clear, yellow fluid was removed. Fluid was discarded. Paracentesis was the rapeutic only. . . TECHNIQUE: Ultrasound guidance for abdominal paracentesis. Paracentesis. The risks, benefits, and alternatives to ultrasound guided paracentesis were explained to the patient in detail including the risk of bleeding and infection. Written and verbal informed consent was obt ained. With the patient on the ultrasound table, ultrasound imaging was used to select the most appropriate approach for paracentesis. Overlying skin was prepped and draped in the usual sterile fashion and wi th a local anesthetic, a dermatotomy was made with an 11 blade scalpel. A 6 [employer] [id number] ca theter was introduced into the peritoneal cavity and fluid was collected. Post procedure scanning reveals no hematoma or other complication. The patient tolerated the procedu re well and left the ultrasound suite in stable condition. FINDINGS: Adequate fluid for paracentesis. CONCLUSION: 1. Uncomplicated paracentesis. Electronically signed by: Kota Branham MD 09/12/2018 7:00 AM EST
[2018-09-12] MEDS: FLUoxetine 10 MG Capsule PO SCH (09:33)
[2018-09-12] MEDS: Famotidine 20 MG Tablet PO SCH ×2 (09:33→20:34)
[2018-09-12] MEDS: Furosemide 40 MG Tablet PO SCH (09:34)
[2018-09-12] MEDS: Sodium Chloride 0.9% 2 ML Flush BID IV.FLUSH SCH ×2 (09:35→20:35)
[2018-09-12] MEDS: Metoprolol Tartrate 25 MG Tablet PO SCH ×2 (09:35→20:34)
--- NOTE | 2018-09-12 09:35 | P.PNNP ---
Subjective Interval history: Sitting up on side of bed eating breakfast. Reported some shortness of breath last night but has improved today. Febrile yesterday. <Debbie Godinez - Last Filed: 09/12/18 09:46> Physical Exam Vital signs: Vital Signs 09/11/18 12:00 09/11/18 16:00 09/11/18 18:17 Temperature 97.2 F L 97.4 F L Pulse Rate 90 92 H 102 H Respiratory Rate 17 16 20 Blood Pressure 118/95 H 107/77 Pulse Oximetry 96 96 09/11/18 20:00 09/11/18 22:53 09/12/18 00:00 Temperature 101.3 F H 97.1 F L Pulse Rate 108 H 69 Respiratory Rate 16 20 16 Blood Pressure 122/89 97/52 L Pulse Oximetry 96 95 09/12/18 07:35 09/12/18 08:01 Temperature 97.1 F L Pulse Rate 74 Respiratory Rate 16 Blood Pressure 99/62 L Pulse Oximetry 98 98 Intake & Output 09/11/18 09/12/18 09/12/18 18:59 06:59 18:59 Intake Total 975 / 975 480 / 480 Output Total 725 / 725 600 / 600 Balance 250 / 250 -120 / -120 Weight 58 kg Intake: Oral 975 / 975 480 / 480 Output: Urine 725 / 725 600 / 600 Other: # Voids 1 1 Date of Last Bowel Movement 09/10/18 # Bowel Movements 1 Narrative: GENERAL: Alert in NAD. SKIN: Warm and dry. Right upper chest permacath in place CARDIOVASCULAR: Regular rate and rhythm. Positive murmur RESPIRATORY: Lung sounds diminished. ON NC 6 GASTROINTESTINAL: Abdomen soft, non-tender, distended. MUSCULOSKELETAL: Extremities without clubbing, cyanosis, or edema. No obvious deformities. PSYCH: Flat affect. <Debbie Godinez - Last Filed: 09/12/18 09:46> Vital signs: Vital Signs 09/13/18 12:00 09/13/18 15:34 09/13/18 19:54 Temperature 97.1 F L 98.0 F Pulse Rate 97 H 83 Respiratory Rate 19 18 Blood Pressure 134/96 H 116/78 Pulse Oximetry 98 99 96 09/13/18 20:00 09/13/18 21:11 11/14/18 00:00 Temperature 97.7 F 98.1 F Pulse Rate 95 H 80 Respiratory Rate 17 17 Blood Pressure 119/80 98/63 L Pulse Oximetry 97 97 93 L 09/14/18 04:00 09/14/18 08:00 Temperature 97.1 F L 97.5 F L Pulse Rate 72 75 Respiratory Rate 18 17 Blood Pressure 104/67 101/68 Pulse Oximetry 96 93 L Intake & Output 09/13/18 09/14/18 09/14/18 18:59 06:59 18:59 Intake Total 1000 / 1000 360 / 360 Balance 1000 / 1000 360 / 360 Weight 58.2 kg Intake: Oral 1000 / 1000 360 / 360 Other: # Voids 1 1 Date of Last Bowel Movement 09/12/18 # Bowel Movements 1 <Bhargav Monge - Last Filed: 09/14/18 10:49> Assessment and Plan - Assessment (1) Acute kidney injury Code(s): N17.9 - Acute kidney failure, unspecified Status: Acute Plan: Acute kidney injury requiring hemodialysis. 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 Creatinine was noted to 0.81 on May 04, 2018. Hemodialysis started at [facility] on June 26. If remain HD dependent for 3 months, will label ESRD. Continue HD MWF - planned next HD Wednesday Volume status, electrolytes stable. Continue lasix daily. Avoid nephrotoxins. Recommend to continue low potassium diet. Creatinine at 2.75 yesterday, labs pending for today, will hold hemodialysis for today (2) Endocarditis Code(s): I38 - Endocarditis, valve unspecified Status: Acute Qualifiers: Endocarditis type: infective Infective endocarditis organism: bacterial Chronicity: acute Qualified Code(s): I33.0 - Acute and subacute infective endocarditis Plan: Antibiotics completed. <Debbie Godinez - Last Filed: 09/12/18 09:46> - Assessment (1) Acute kidney injury Code(s): N17.9 - Acute kidney failure, unspecified Status: Acute Plan: Patient seen and examined, agree with above. Creatinine was low yesterday, will hold HD and follow the BMP. (2) Endocarditis Code(s): I38 - Endocarditis, valve unspecified Status: Acute Qualifiers: Endocarditis type: infective Infective endocarditis organism: bacterial Chronicity: acute Qualified Code(s): I33.0 - Acute and subacute infective endocarditis <Bhargav Monge - Last Filed: 09/14/18 10:49>
--- NOTE | 2018-09-12 10:30 | P.PNIM ---
Subjective Interval history: f/u; TED in no acute distress. no sob or abdominal pain. noted that had a fever last night with no recurrence. d/w the RN and no acute issues over night. Physical Exam Vital signs: Vital Signs 09/11/18 12:00 09/11/18 16:00 09/11/18 18:17 Temperature 97.2 F L 97.4 F L Pulse Rate 90 92 H 102 H Respiratory Rate 17 16 20 Blood Pressure 118/95 H 107/77 Pulse Oximetry 96 96 09/11/18 20:00 09/11/18 22:53 09/12/18 00:00 Temperature 101.3 F H 97.1 F L Pulse Rate 108 H 69 Respiratory Rate 16 20 16 Blood Pressure 122/89 97/52 L Pulse Oximetry 96 95 09/12/18 07:35 09/12/18 08:01 Temperature 97.1 F L Pulse Rate 74 Respiratory Rate 16 Blood Pressure 99/62 L Pulse Oximetry 98 98 Intake & Output 09/11/18 09/12/18 09/12/18 18:59 06:59 18:59 Intake Total 975 / 975 480 / 480 Output Total 725 / 725 600 / 600 Balance 250 / 250 -120 / -120 Weight 58 kg Intake: Oral 975 / 975 480 / 480 Output: Urine 725 / 725 600 / 600 Other: # Voids 1 1 Date of Last Bowel Movement 09/10/18 # Bowel Movements 1 - Constitutional no acute distress - Routine Respiratory Exam Present: CTA bilaterally - Routine Cardiovascular Exam Present: RRR - Routine Abdominal Exam Present: soft, distended (looks less distended.) - Routine Extremities Exam Comments: no pedal edema. - Routine Neurological Exam Present: alert, oriented X3 Results - Labs CBC & Chem 7: 09/11/18 07:07 09/11/18 07:07 - Imaging Impressions Paracentesis Ultrasound 09/08/18 00:00 CONCLUSION: 1. Uncomplicated paracentesis. Assessment and Plan - Assessment (1) IV drug abuse Code(s): F19.10 - Other psychoactive substance abuse, uncomplicated Status: Acute (2) Endocarditis Code(s): I38 - Endocarditis, valve unspecified Status: Acute (3) Sepsis Code(s): A41.9 - Sepsis, unspecified organism Status: Resolved (4) End-stage renal disease (ESRD) Code(s): N18.6 - End stage renal disease Status: Acute (5) Ascites Code(s): R18.8 - Other ascites Status: Acute (6) Acute kidney injury Code(s): N17.9 - Acute kidney failure, unspecified Status: Acute - Plan This is a 28-year-old female with infective tricuspid valve endocarditis and multiorgan dysfunction secondary to endocarditis. Remains in heart failure and volume overload, and associated organ failure, including severe renal failure requiring renal replacement therapy. continue to daily pull fluid by HD. Broad spectrum abx. overall prognosis is quite poor given history of leaving AMA. Completed treatment for urinary cisco. Completed ~6 week regimen of IV ancef for MSSA bacteremia on 08/14. Infective tricuspid valve endocarditis Moderate tricuspid valve regurgitation Mixed septic and cardiogenic shock secondary to infective endocarditis- resolving. elevated troponin; no chest pain with no acute St-T changes on EKG- likely due to renal insufficiency. Bedside echo shows large tricuspid regurgitation with moderate to severe TR With noncompliance and multiple AMA discharges, Not a candidate for valve replacement until she can complete antibiotic therapy and demonstrate medical compliance by not leaving AMA. -Per ID patient, completed Ancef for MSSA on 08/14 -Continue Lasix 40 mg p.o.daily, monitor BMP. Sinus tachycardia - overall improved. -continue Lopressor 25 mg p.o. twice daily End-stage renal disease/hyponatremia/hyperkalemia -Patient came with outside hospital dialysis access in place. -Perm cath in place, nephrology following, appreciate assistance -Continue renal diet with fluid restriction 1.5L -Nephrology following -was on Hemodialysis on Wednesday -Wednesday -Wednesday- HD on hold today. continue to monitor the renal function . Ascites Secondary to severe renal injury and suspected CHF -Paracentesis 07/17 with 2.1L removed -paracentesis 08/11 with 2.8 L. -paracentesis 08/29. -paracentesis on 09/08. -continue dialysis for volume management. Paracentesis as needed. elevated troponin- likely due to renal failure -chest pain free and no acute St-T changes on EKG IV drug dependence -prn oxycodone to prevent withdrawal -Counseling given. Thrombocytopenia- improved. -Stopped heparin, patient has been refusing. Depressed, likely situational Anxious -Psych attempted to evaluate 08/21, patient refused to speak to them. -Re-evaluated on 08/23 and provided psychosocial education and support for her anxiety and depression. -Continue Xanax 0.25 mg p.o. every 8 as needed for anxiety -Continue Prozac DVT Prophylaxis: SCDs evaluated by palliative care. Discharge Planning: HD on hold- will continue to monitor the renal function. (2) Endocarditis Qualifiers: Endocarditis type: infective Infective endocarditis organism: bacterial Chronicity: acute Qualified Code(s): I33.0 - Acute and subacute infective endocarditis (5) Ascites Qualifiers: Ascites type: other type Qualified Code(s): R18.8 - Other ascites
[2018-09-12 12:40] LABS: Hematocrit 36.2 % (35.0-46.0); Hemoglobin 11.2 gm/dL (11.6-15.3); Mean Corpuscular Hemoglobin 28.7 pg (27.0-34.0); Mean Corpuscular Volume 92.9 fL (80.0-100.0); Mean Platelet Volume 7.9 fL (7.0-11.0); Platelet Count 136 th/mm3 (150-450); Red Cell Distribution Width 19.8 % (11.6-17.2)
[2018-09-12 12:42] LABS: Mean Corpuscular HGB Conc 30.9 % (32.0-36.0)
[2018-09-12 13:09] LABS: Albumin 1.9 g/dL (3.4-5.0); Anion Gap 13 meq/L (5-15); Aspartate Aminotransferase 24 U/L (15-37); Blood Urea Nitrogen 47 mg/dL (7-18); Calcium 8.5 mg/dL (8.5-10.1); Carbon Dioxide 22.1 meq/L (21.0-32.0); Chloride 102 meq/L (98-107); Glomerular Filtration Rate 18 mL/min (>89); Glucose,Random 94 mg/dL (74-106); Potassium 4.4 meq/L (3.5-5.1); Sodium 137 meq/L (136-145)
[2018-09-12 13:10] LABS: Alanine Aminotransferase 17 U/L (10-53)
[2018-09-12 13:12] LABS: Alkaline Phosphatase 246 U/L (45-117); Total Protein 6.9 g/dL (6.4-8.2)
[2018-09-12] MEDS: ALPRAZolam 0.25 MG Tablet PO PRN ×2 (14:26→20:34)
[2018-09-12] MEDS: QUEtiapine 25 MG Tablet PO SCH (20:34)
[2018-09-13] MEDS: ALPRAZolam 0.25 MG Tablet PO PRN ×2 (06:48→16:34)
[2018-09-13 07:31] LABS: Hemoglobin 12.1 gm/dL (11.6-15.3); Mean Corpuscular HGB Conc 31.8 % (32.0-36.0); Mean Corpuscular Volume 91.2 fL (80.0-100.0); Mean Platelet Volume 8.1 fL (7.0-11.0); Platelet Count 163 th/mm3 (150-450); Red Blood Count 4.17 mil/mm3 (4.00-5.30); Red Cell Distribution Width 19.7 % (11.6-17.2)
[2018-09-13 07:39] LABS: Albumin 2.2 g/dL (3.4-5.0); Anion Gap 11 meq/L (5-15); Aspartate Aminotransferase 23 U/L (15-37); Blood Urea Nitrogen 57 mg/dL (7-18); Calcium 8.7 mg/dL (8.5-10.1); Carbon Dioxide 23.1 meq/L (21.0-32.0); Chloride 99 meq/L (98-107); Glomerular Filtration Rate 16 mL/min (>89); Glucose,Random 108 mg/dL (74-106); Potassium 4.9 meq/L (3.5-5.1); Sodium 133 meq/L (136-145)
[2018-09-13 07:40] LABS: Alanine Aminotransferase 18 U/L (10-53)
[2018-09-13 07:43] LABS: Alkaline Phosphatase 297 U/L (45-117); Total Protein 7.8 g/dL (6.4-8.2)
[2018-09-13] MEDS: Famotidine 20 MG Tablet PO SCH ×2 (10:01→21:10)
[2018-09-13] MEDS: Metoprolol Tartrate 25 MG Tablet PO SCH ×2 (10:02→21:11)
[2018-09-13] MEDS: Furosemide 40 MG Tablet PO SCH (10:02)
[2018-09-13] MEDS: FLUoxetine 10 MG Capsule PO SCH (10:02)
[2018-09-13] MEDS: Sodium Chloride 0.9% 2 ML Flush BID IV.FLUSH SCH ×2 (10:03→21:11)
--- NOTE | 2018-09-13 13:49 | P.PN ---
Subjective Interval history: afebrile feels good today no abdominal pain ,nausea or vomiting Physical Exam Vital signs: Vital Signs 09/12/18 15:00 09/12/18 20:00 09/12/18 20:42 Temperature 97.2 F L 97.5 F L Pulse Rate 93 H 91 H Respiratory Rate 16 18 Blood Pressure 110/77 124/92 H Pulse Oximetry 97 94 L 94 L 09/13/18 00:00 09/13/18 08:00 09/13/18 12:00 Temperature 97.1 F L 97.0 F L 97.1 F L Pulse Rate 92 H 83 97 H Respiratory Rate 17 18 19 Blood Pressure 116/78 120/83 134/96 H Pulse Oximetry 99 98 98 Intake & Output 09/12/18 09/13/18 09/13/18 18:59 06:59 18:59 Intake Total 320 / 320 Balance 320 / 320 Weight 58 kg Intake: Oral 320 / 320 Other: # Voids 2 Date of Last Bowel Movement 09/12/18 09/12/18 Narrative: GENERAL: Alert in NAD. SKIN: Warm and dry. Right upper chest permacath in place CARDIOVASCULAR: Regular rate and rhythm. Positive murmur RESPIRATORY: Lung sounds diminished. ON NC 6 GASTROINTESTINAL: Abdomen soft, non-tender, mild fluid wave MUSCULOSKELETAL: Extremities without clubbing, cyanosis, or edema. No obvious deformities. PSYCH: Flat affect. Results - Labs CBC & Chem 7: 09/13/18 06:15 09/13/18 06:05 Laboratory Results - last 24 hr 09/13/18 09/13/18 06:05 06:15 WBC 8.0 RBC 4.17 Hgb 12.1 Hct 38.0 MCV 91.2 MCH 29.0 MCHC 31.8 L RDW 19.7 H Plt Count 163 MPV 8.1 Sodium 133 L Potassium 4.9 Chloride 99 Carbon Dioxide 23.1 Anion Gap 11 BUN 57 H Creatinine 3.35 H Estimated GFR 16 L Random Glucose 108 H Calcium 8.7 Total Bilirubin 0.8 AST 23 ALT 18 Alkaline Phosphatase 297 H Total Protein 7.8 D Albumin 2.2 L Assessment and Plan - Assessment (1) IV drug abuse Code(s): F19.10 - Other psychoactive substance abuse, uncomplicated Status: Acute (2) Endocarditis Code(s): I38 - Endocarditis, valve unspecified Status: Acute (3) Sepsis Code(s): A41.9 - Sepsis, unspecified organism Status: Resolved (4) End-stage renal disease (ESRD) Code(s): N18.6 - End stage renal disease Status: Acute (5) Ascites Code(s): R18.8 - Other ascites Status: Acute (6) Acute kidney injury Code(s): N17.9 - Acute kidney failure, unspecified Status: Acute - Plan 28-year-old female with infective tricuspid valve endocarditis and multiorgan dysfunction secondary to endocarditis. Remains in heart failure and volume overload, and associated organ failure, including severe renal failure requiring renal replacement therapy. continue to daily pull fluid by HD. Broad spectrum abx. overall prognosis is quite poor given history of leaving AMA. Completed treatment for urinary cisco. Completed ~6 week regimen of IV ancef for MSSA bacteremia on 08/14. Infective tricuspid valve endocarditis Moderate tricuspid valve regurgitation Mixed septic and cardiogenic shock secondary to infective endocarditis- resolving. elevated troponin; no chest pain with no acute St-T changes on EKG- likely due to renal insufficiency. Bedside echo shows large tricuspid regurgitation with moderate to severe TR With noncompliance and multiple AMA discharges, Not a candidate for valve replacement until she can complete antibiotic therapy and demonstrate medical compliance by not leaving AMA. -Per ID patient, completed Ancef for MSSA on 08/14 -Continue Lasix 40 mg p.o.daily, monitor BMP. Sinus tachycardia - overall improved. -continue Lopressor 25 mg p.o. twice daily End-stage renal disease/hyponatremia/hyperkalemia -Patient came with outside hospital dialysis access in place. -Perm cath in place, nephrology following, appreciate assistance -Continue renal diet with fluid restriction 1.5L -Nephrology following -was on Hemodialysis on Wednesday -Wednesday -Wednesday- continue to monitor the renal function . Ascites Secondary to severe renal injury and suspected CHF -Paracentesis 07/17 with 2.1L removed -paracentesis 08/11 with 2.8 L. -paracentesis 08/29. -paracentesis on 09/08. -continue dialysis for volume management. Paracentesis as needed. elevated troponin- likely due to renal failure -chest pain free and no acute St-T changes on EKG IV drug dependence -prn oxycodone to prevent withdrawal -Counseling given. Thrombocytopenia- improved. -Stopped heparin, patient has been refusing. Depressed, likely situational Anxious -Psych attempted to evaluate 08/21, patient refused to speak to them. -Re-evaluated on 08/23 and provided psychosocial education and support for her anxiety and depression. -Continue Xanax 0.25 mg p.o. every 8 as needed for anxiety -Continue Prozac DVT Prophylaxis: SCDs evaluated by palliative care. Discharge Planning: (2) Endocarditis Qualifiers: Endocarditis type: infective Infective endocarditis organism: bacterial Chronicity: acute Qualified Code(s): I33.0 - Acute and subacute infective endocarditis (5) Ascites Qualifiers: Ascites type: other type Qualified Code(s): R18.8 - Other ascites
--- NOTE | 2018-09-13 15:27 | P.PNNP ---
Subjective Interval history: Seen in AM. Reports chronic shortness of breath. No nausea or vomiting. Creatinine slightly increased at 3.3 today. <Debbie Godinez - Last Filed: 09/13/18 15:23> Physical Exam Vital signs: Vital Signs 09/12/18 20:00 09/12/18 20:42 09/13/18 00:00 Temperature 97.5 F L 97.1 F L Pulse Rate 91 H 92 H Respiratory Rate 18 17 Blood Pressure 124/92 H 116/78 Pulse Oximetry 94 L 94 L 99 09/13/18 08:00 09/13/18 12:00 Temperature 97.0 F L 97.1 F L Pulse Rate 83 97 H Respiratory Rate 18 19 Blood Pressure 120/83 134/96 H Pulse Oximetry 98 98 Intake & Output 09/12/18 09/13/18 09/13/18 18:59 06:59 18:59 Intake Total 320 / 320 Balance 320 / 320 Weight 58 kg Intake: Oral 320 / 320 Other: # Voids 2 Date of Last Bowel Movement 09/12/18 09/12/18 Narrative: GENERAL: Alert in NAD. SKIN: Warm and dry. Right upper chest permacath in place CARDIOVASCULAR: Regular rate and rhythm. Positive murmur RESPIRATORY: Lung sounds diminished. GASTROINTESTINAL: Abdomen soft, non-tender, mildly distended. MUSCULOSKELETAL: Extremities without clubbing, cyanosis, or edema. No obvious deformities. PSYCH: Flat affect. <Debbie Godinez - Last Filed: 09/13/18 15:23> Vital signs: Vital Signs 09/14/18 12:00 09/14/18 16:00 09/14/18 18:02 Temperature 97.8 F 97.2 F L Pulse Rate 76 78 Respiratory Rate 16 18 Blood Pressure 106/66 121/85 Pulse Oximetry 95 96 96 09/14/18 20:00 09/14/18 23:59 09/15/18 08:00 Temperature 98.0 F 98.0 F 97.5 F L Pulse Rate 84 79 78 Respiratory Rate 18 18 20 Blood Pressure 116/80 99/62 L 120/88 Pulse Oximetry 97 98 97 Intake & Output 09/14/18 09/15/18 09/15/18 18:59 06:59 18:59 Intake Total 460 / 460 Balance 460 / 460 Weight 58.2 kg Intake: Oral 460 / 460 Other: Date of Last Bowel Movement 09/13/18 <Bhargav Monge - Last Filed: 09/15/18 11:36> Assessment and Plan - Assessment (1) Acute kidney injury Code(s): N17.9 - Acute kidney failure, unspecified Status: Acute Plan: Acute kidney injury requiring hemodialysis. 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 Creatinine was noted to 0.81 on May 04, 2018. Hemod[facility] started at [facility] on June 26. If remain HD dependent for 3 months, will label ESRD. Volume status, electrolytes stable. Need to continue to monitor strict I+O Continue lasix daily. Avoid nephrotoxins. Recommend to continue low potassium diet. Creatinine slightly increased at 3.3 today, will continue to hold HD for now Will monitor fluid balance and electrolytes daily for need for HD. (2) Endocarditis Code(s): I38 - Endocarditis, valve unspecified Status: Acute Qualifiers: Endocarditis type: infective Infective endocarditis organism: bacterial Chronicity: acute Qualified Code(s): I33.0 - Acute and subacute infective endocarditis Plan: Antibiotics completed. <Debbie Godinez - Last Filed: 09/13/18 15:23> - Assessment (1) Acute kidney injury Code(s): N17.9 - Acute kidney failure, unspecified Status: Acute Plan: Patient seen and examined, agree with above. BP is stable now, Creatinine is 3.3, continue to hold HD. (2) Endocarditis Code(s): I38 - Endocarditis, valve unspecified Status: Acute Qualifiers: Endocarditis type: infective Infective endocarditis organism: bacterial Chronicity: acute Qualified Code(s): I33.0 - Acute and subacute infective endocarditis <Bhargav Monge - Last Filed: 09/15/18 11:36>
[2018-09-13] MEDS: QUEtiapine 25 MG Tablet PO SCH (21:10)
[2018-09-14] MEDS: ALPRAZolam 0.25 MG Tablet PO PRN ×2 (04:47→17:05)
[2018-09-14 07:42] LABS: Hematocrit 38.4 % (35.0-46.0); Hemoglobin 11.7 gm/dL (11.6-15.3); Mean Corpuscular Hemoglobin 28.3 pg (27.0-34.0); Mean Corpuscular Volume 92.7 fL (80.0-100.0); Mean Platelet Volume 8.3 fL (7.0-11.0); Platelet Count 170 th/mm3 (150-450); Red Blood Count 4.14 mil/mm3 (4.00-5.30); Red Cell Distribution Width 19.7 % (11.6-17.2); White Blood Count 7.8 th/mm3 (4.0-11.0)
[2018-09-14 07:45] LABS: Mean Corpuscular HGB Conc 30.6 % (32.0-36.0)
[2018-09-14 08:23] LABS: Alanine Aminotransferase 18 U/L (10-53)
[2018-09-14 08:25] LABS: Alkaline Phosphatase 298 U/L (45-117); Total Protein 7.4 g/dL (6.4-8.2)
[2018-09-14 08:33] LABS: Anion Gap 11 meq/L (5-15); Aspartate Aminotransferase 24 U/L (15-37); Blood Urea Nitrogen 62 mg/dL (7-18); Calcium 8.2 mg/dL (8.5-10.1); Carbon Dioxide 22.8 meq/L (21.0-32.0); Chloride 99 meq/L (98-107); Glomerular Filtration Rate 16 mL/min (>89); Glucose,Random 99 mg/dL (74-106); Sodium 133 meq/L (136-145)
[2018-09-14] MEDS: Furosemide 40 MG Tablet PO SCH (08:55)
[2018-09-14] MEDS: Famotidine 20 MG Tablet PO SCH ×2 (08:55→20:19)
[2018-09-14] MEDS: FLUoxetine 10 MG Capsule PO SCH (08:55)
[2018-09-14] MEDS: Sodium Chloride 0.9% 2 ML Flush BID IV.FLUSH SCH ×2 (08:55→20:18)
[2018-09-14] MEDS: Metoprolol Tartrate 25 MG Tablet PO SCH ×2 (08:55→20:18)
--- NOTE | 2018-09-14 11:38 | P.PNNP ---
Subjective Interval history: No acute complaints overnight. Reports right ankle discomfort. Mild bilateral lower extremity edema. <Debbie Godinez - Last Filed: 09/14/18 17:50> Physical Exam Vital signs: Vital Signs 09/13/18 12:00 09/13/18 15:34 09/13/18 19:54 Temperature 97.1 F L 98.0 F Pulse Rate 97 H 83 Respiratory Rate 19 18 Blood Pressure 134/96 H 116/78 Pulse Oximetry 98 99 96 09/13/18 20:00 09/13/18 21:11 09/14/18 00:00 Temperature 97.7 F 98.1 F Pulse Rate 95 H 80 Respiratory Rate 17 17 Blood Pressure 119/80 98/63 L Pulse Oximetry 97 97 93 L 09/14/18 04:00 09/14/18 08:00 Temperature 97.1 F L 97.5 F L Pulse Rate 72 75 Respiratory Rate 18 17 Blood Pressure 104/67 101/68 Pulse Oximetry 96 93 L Intake & Output 09/13/18 09/14/18 09/14/18 18:59 06:59 18:59 Intake Total 1000 / 1000 360 / 360 Balance 1000 / 1000 360 / 360 Weight 58.2 kg Intake: Oral 1000 / 1000 360 / 360 Other: # Voids 1 1 Date of Last Bowel Movement 09/12/18 # Bowel Movements 1 Narrative: GENERAL: Alert in NAD. SKIN: Warm and dry. Right upper chest permacath in place CARDIOVASCULAR: Regular rate and rhythm. Positive murmur RESPIRATORY: Lung sounds diminished. GASTROINTESTINAL: Abdomen soft, non-tender, mildly distended. MUSCULOSKELETAL: Extremities without clubbing, cyanosis, or edema. No obvious deformities. <Debbie Godinez - Last Filed: 09/14/18 17:50> Vital signs: Vital Signs 09/14/18 12:00 09/14/18 16:00 09/14/18 18:02 Temperature 97.8 F 97.2 F L Pulse Rate 76 78 Respiratory Rate 16 18 Blood Pressure 106/66 121/85 Pulse Oximetry 95 96 96 09/14/18 20:00 09/14/18 23:59 09/15/18 08:00 Temperature 98.0 F 98.0 F 97.5 F L Pulse Rate 84 79 78 Respiratory Rate 18 18 20 Blood Pressure 116/80 99/62 L 120/88 Pulse Oximetry 97 98 97 Intake & Output 09/14/18 09/15/18 09/15/18 18:59 06:59 18:59 Intake Total 460 / 460 Balance 460 / 460 Weight 58.2 kg Intake: Oral 460 / 460 Other: Date of Last Bowel Movement 09/13/18 <Bhargav Monge - Last Filed: 09/15/18 12:00> Assessment and Plan - Assessment (1) Acute kidney injury Code(s): N17.9 - Acute kidney failure, unspecified Status: Acute Plan: Acute kidney injury requiring hemodialysis. 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 Creatinine was noted to 0.81 on May 04, 2018. Hemodialysis started at [facility] on June 26. If remain HD dependent for 3 months, will label ESRD. Volume status, electrolytes stable. Need to continue to monitor strict I+O Continue lasix daily. Avoid nephrotoxins. Recommend to continue low potassium diet. Complaining of right ankle discomfort, will check uric acid level. Creatinine stable at 3.3 and GFR of 16 ml/min, adequate urinary output but not measured. Will monitor fluid balance and electrolytes daily for need for HD, HD held for today. Last HD on the . Labs in AM (2) Endocarditis Code(s): I38 - Endocarditis, valve unspecified Status: Acute Qualifiers: Endocarditis type: infective Infective endocarditis organism: bacterial Chronicity: acute Qualified Code(s): I33.0 - Acute and subacute infective endocarditis Plan: Antibiotics completed. <Debbie Godinez - Last Filed: 09/14/18 17:50> - Assessment (1) Acute kidney injury Code(s): N17.9 - Acute kidney failure, unspecified Status: Acute Plan: Patient seen and examined, agree with above. HD is on hold, follow the urine out put and BMP. HD as needed. (2) Endocarditis Code(s): I38 - Endocarditis, valve unspecified Status: Acute Qualifiers: Endocarditis type: infective Infective endocarditis organism: bacterial Chronicity: acute Qualified Code(s): I33.0 - Acute and subacute infective endocarditis <Bhargav Monge - Last Filed: 09/15/18 12:00>
--- NOTE | 2018-09-14 13:13 | P.PN ---
Subjective Interval history: awake and alert, no complains of abdominal discomfort/pain, nausea or vomiting states she has been voiding Physical Exam Vital signs: Vital Signs 09/13/18 15:34 09/13/18 19:54 09/13/18 20:00 Temperature 98.0 F 97.7 F Pulse Rate 83 95 H Respiratory Rate 18 17 Blood Pressure 116/78 119/80 Pulse Oximetry 99 96 97 09/13/18 21:11 09/14/18 00:00 09/14/18 04:00 Temperature 98.1 F 97.1 F L Pulse Rate 80 72 Respiratory Rate 17 18 Blood Pressure 98/63 L 104/67 Pulse Oximetry 97 93 L 96 09/14/18 08:00 09/14/18 12:00 Temperature 97.5 F L 97.8 F Pulse Rate 75 76 Respiratory Rate 17 16 Blood Pressure 101/68 106/66 Pulse Oximetry 93 L 95 Intake & Output 09/13/18 09/14/18 09/14/18 18:59 06:59 18:59 Intake Total 1000 / 1000 360 / 360 Balance 1000 / 1000 360 / 360 Weight 58.2 kg Intake: Oral 1000 / 1000 360 / 360 Other: # Voids 1 1 Date of Last Bowel Movement 09/12/18 # Bowel Movements 1 Results - Labs CBC & Chem 7: 09/14/18 07:10 09/14/18 07:10 Laboratory Results - last 24 hr 09/14/18 09/14/18 07:10 07:10 WBC 7.8 RBC 4.14 Hgb 11.7 Hct 38.4 MCV 92.7 MCH 28.3 MCHC 30.6 L RDW 19.7 H Plt Count 170 MPV 8.3 Sodium 133 L Potassium 5.0 Chloride 99 Carbon Dioxide 22.8 Anion Gap 11 BUN 62 H Creatinine 3.38 H Estimated GFR 16 L Random Glucose 99 Calcium 8.2 L Total Bilirubin 0.7 AST 24 ALT 18 Alkaline Phosphatase 298 H Total Protein 7.4 Albumin 2.0 L Assessment and Plan - Assessment (1) IV drug abuse Code(s): F19.10 - Other psychoactive substance abuse, uncomplicated Status: Acute (2) Endocarditis Code(s): I38 - Endocarditis, valve unspecified Status: Acute (3) Sepsis Code(s): A41.9 - Sepsis, unspecified organism Status: Resolved (4) End-stage renal disease (ESRD) Code(s): N18.6 - End stage renal disease Status: Acute (5) Ascites Code(s): R18.8 - Other ascites Status: Acute (6) Acute kidney injury Code(s): N17.9 - Acute kidney failure, unspecified Status: Acute - Plan 28-year-old female with infective tricuspid valve endocarditis and multiorgan dysfunction secondary to endocarditis. Remains in heart failure and volume overload, and associated organ failure, including severe renal failure requiring renal replacement therapy. continue to daily pull fluid by HD. Broad spectrum abx. overall prognosis is quite poor given history of leaving AMA. Completed treatment for urinary cisco. Completed ~6 week regimen of IV ancef for MSSA bacteremia on 08/14. Infective tricuspid valve endocarditis Moderate tricuspid valve regurgitation Mixed septic and cardiogenic shock secondary to infective endocarditis- resolving. elevated troponin; no chest pain with no acute St-T changes on EKG- likely due to renal insufficiency. Bedside echo shows large tricuspid regurgitation with moderate to severe TR With noncompliance and multiple AMA discharges, Not a candidate for valve replacement until she can complete antibiotic therapy and demonstrate medical compliance by not leaving AMA. -Per ID patient, completed Ancef for MSSA on 08/14 -Continue Lasix 40 mg p.o.daily, monitor BMP. Sinus tachycardia - overall improved. -continue Lopressor 25 mg p.o. twice daily End-stage renal disease/hyponatremia/hyperkalemia -Patient came with outside hospital dialysis access in place. -Perm cath in place, nephrology following, appreciate assistance -Continue renal diet with fluid restriction 1.5L -Nephrology following- for HD arrangements- laast HD was 09/09 continue to monitor the renal function . Ascites Secondary to severe renal injury and suspected CHF -Paracentesis 07/17 with 2.1L removed -paracentesis 08/11 with 2.8 L. -paracentesis 08/29. -paracentesis on 09/08. -continue dialysis for volume management. Paracentesis as needed. - abdomen more enlarged not tense today but still soft- no pain complains monitor- has not had HD- maybe that why- consider paracentesis if developds discomfort elevated troponin- likely due to renal failure -chest pain free and no acute St-T changes on EKG IV drug dependence -prn oxycodone to prevent withdrawal -Counseling given. Thrombocytopenia- improved. -Stopped heparin, patient has been refusing. Depressed, likely situational Anxious -Psych attempted to evaluate 08/21, patient refused to speak to them. -Re-evaluated on 08/23 and provided psychosocial education and support for her anxiety and depression. -Continue Xanax 0.25 mg p.o. every 8 as needed for anxiety -Continue Prozac DVT Prophylaxis: SCDs evaluated by palliative care. Discharge Planning: (2) Endocarditis Qualifiers: Endocarditis type: infective Infective endocarditis organism: bacterial Chronicity: acute Qualified Code(s): I33.0 - Acute and subacute infective endocarditis (5) Ascites Qualifiers: Ascites type: other type Qualified Code(s): R18.8 - Other ascites
[2018-09-14] MEDS: QUEtiapine 25 MG Tablet PO SCH (20:18)
[2018-09-15] MEDS: ALPRAZolam 0.25 MG Tablet PO PRN ×3 (07:31→20:04)
[2018-09-15 08:35] LABS: Hemoglobin 11.5 gm/dL (11.6-15.3); Mean Corpuscular HGB Conc 31.9 % (32.0-36.0); Mean Corpuscular Hemoglobin 28.8 pg (27.0-34.0); Mean Corpuscular Volume 90.3 fL (80.0-100.0); Mean Platelet Volume 8.1 fL (7.0-11.0); Platelet Count 185 th/mm3 (150-450); Red Blood Count 3.99 mil/mm3 (4.00-5.30); Red Cell Distribution Width 19.7 % (11.6-17.2); White Blood Count 9.4 th/mm3 (4.0-11.0)
[2018-09-15] MEDS: FLUoxetine 10 MG Capsule PO SCH (08:43)
[2018-09-15] MEDS: Furosemide 40 MG Tablet PO SCH (08:43)
[2018-09-15] MEDS: Famotidine 20 MG Tablet PO SCH ×2 (08:43→20:04)
[2018-09-15] MEDS: Sodium Chloride 0.9% 2 ML Flush BID IV.FLUSH SCH ×2 (08:44→20:06)
[2018-09-15 08:51] LABS: Albumin 1.9 g/dL (3.4-5.0); Anion Gap 11 meq/L (5-15); Aspartate Aminotransferase 18 U/L (15-37); Blood Urea Nitrogen 63 mg/dL (7-18); Calcium 8.4 mg/dL (8.5-10.1); Carbon Dioxide 20.2 meq/L (21.0-32.0); Chloride 102 meq/L (98-107); Glomerular Filtration Rate 16 mL/min (>89); Glucose,Random 66 mg/dL (74-106); Potassium 5.5 meq/L (3.5-5.1); Sodium 133 meq/L (136-145); Uric Acid 5.7 mg/dl (2.6-6.0)
[2018-09-15 08:52] LABS: Alanine Aminotransferase 16 U/L (10-53)
[2018-09-15 08:54] LABS: Alkaline Phosphatase 259 U/L (45-117); Total Protein 7.3 g/dL (6.4-8.2)
[2018-09-15] MEDS ORDERED: Sodium Polystyrene Sulfonate/Sorbitol Liq 15 GM/60 ML UDC PO ONE (09:25)
[2018-09-15] MEDS: Metoprolol Tartrate 25 MG Tablet PO SCH ×2 (09:45→20:04)
--- NOTE | 2018-09-15 10:24 | P.PNNP ---
Subjective Interval history: No acute events overnight. Creatinine stable at 3.34, potassium level at 5.5. Denies any shortness of breath. <Debbie Godinez - Last Filed: 09/15/18 10:20> Physical Exam Vital signs: Vital Signs 09/14/18 12:00 09/14/18 16:00 09/14/18 18:02 Temperature 97.8 F 97.2 F L Pulse Rate 76 78 Respiratory Rate 16 18 Blood Pressure 106/66 121/85 Pulse Oximetry 95 96 96 09/14/18 20:00 09/14/18 23:59 09/15/18 08:00 Temperature 98.0 F 98.0 F 97.5 F L Pulse Rate 84 79 78 Respiratory Rate 18 18 20 Blood Pressure 116/80 99/62 L 120/88 Pulse Oximetry 97 98 97 Intake & Output 09/14/18 09/15/18 09/15/18 18:59 06:59 18:59 Intake Total 460 / 460 Balance 460 / 460 Weight 58.2 kg Intake: Oral 460 / 460 Other: Date of Last Bowel Movement 09/13/18 Narrative: GENERAL: Alert in NAD. SKIN: Warm and dry. Right upper chest permacath in place CARDIOVASCULAR: Regular rate and rhythm. Positive murmur RESPIRATORY: Lung sounds diminished. GASTROINTESTINAL: Abdomen soft, non-tender, mildly distended. MUSCULOSKELETAL: Extremities without clubbing, cyanosis. No obvious deformities. Mild lower extremity edema. <Debbie Godinez - Last Filed: 09/15/18 10:20> Vital signs: Vital Signs 09/19/18 00:00 09/19/18 08:00 09/19/18 12:00 Temperature 98.6 F 98.3 F 97.9 F Pulse Rate 74 78 71 Respiratory Rate 15 17 17 Blood Pressure 106/74 119/71 110/73 Pulse Oximetry 96 95 92 L 09/19/18 16:00 Temperature 98.1 F Pulse Rate 74 Respiratory Rate 18 Blood Pressure 115/85 Pulse Oximetry 96 Intake & Output 09/19/18 09/19/18 09/20/18 06:59 18:59 06:59 Intake Total 480 / 480 1400 / 1400 Balance 480 / 480 1400 / 1400 Weight 58 kg Intake: Oral 480 / 480 1400 / 1400 Other: # Voids 3 4 Date of Last Bowel Movement 11/17/18 # Bowel Movements 0 <Bhargav Monge - Last Filed: 09/19/18 20:57> Assessment and Plan - Assessment (1) Acute kidney injury Code(s): N17.9 - Acute kidney failure, unspecified Status: Acute Plan: Acute kidney injury requiring hemodialysis. 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 Creatinine was noted to 0.81 on May 04, 2018. Hemodialysis started at [facility] on June 26. If remain HD dependent for 3 months, will label ESRD. Volume status stable. Need to continue to monitor strict I+O, discussed with nursing about measuring urine. Continue lasix daily. Avoid nephrotoxins. Recommend to continue low potassium diet. Potassium level at 5.5, Kayexalate ordered. HCO3 20, will add sodium bicarbonate. Creatinine stable at 3.3 and GFR of 16 ml/min,. Will monitor fluid balance and electrolytes daily for need for HD, Will continue to hold HD. Last HD on the . Labs in AM (2) Endocarditis Code(s): I38 - Endocarditis, valve unspecified Status: Acute Qualifiers: Endocarditis type: infective Infective endocarditis organism: bacterial Chronicity: acute Qualified Code(s): I33.0 - Acute and subacute infective endocarditis Plan: Antibiotics completed. <Debbie Godinez - Last Filed: 09/15/18 10:20> - Assessment (1) Acute kidney injury Code(s): N17.9 - Acute kidney failure, unspecified Status: Acute Plan: Patient seen and examined, agree with above. Creatinine remain 3.3-3.4, continue to hold HD. Follow urine out put and BMP closely. (2) Endocarditis Code(s): I38 - Endocarditis, valve unspecified Status: Acute Qualifiers: Endocarditis type: infective Infective endocarditis organism: bacterial Chronicity: acute Qualified Code(s): I33.0 - Acute and subacute infective endocarditis <Bhargav Monge - Last Filed: 09/19/18 20:57>
--- NOTE | 2018-09-15 11:09 | P.PN ---
Subjective Interval history: awake and alert no nausea or vomtinng voiding per patient feel abdominal fullness Physical Exam Vital signs: Vital Signs 09/14/18 12:00 09/14/18 16:00 09/14/18 18:02 Temperature 97.8 F 97.2 F L Pulse Rate 76 78 Respiratory Rate 16 18 Blood Pressure 106/66 121/85 Pulse Oximetry 95 96 96 09/14/18 20:00 09/14/18 23:59 09/15/18 08:00 Temperature 98.0 F 98.0 F 97.5 F L Pulse Rate 84 79 78 Respiratory Rate 18 18 20 Blood Pressure 116/80 99/62 L 120/88 Pulse Oximetry 97 98 97 Intake & Output 09/14/18 09/15/18 09/15/18 18:59 06:59 18:59 Intake Total 460 / 460 Balance 460 / 460 Weight 58.2 kg Intake: Oral 460 / 460 Other: Date of Last Bowel Movement 09/13/18 Results - Labs CBC & Chem 7: 09/16/18 05:06 09/16/18 05:06 Laboratory Results - last 24 hr 09/15/18 09/15/18 07:10 07:10 WBC 9.4 RBC 3.99 L Hgb 11.5 L Hct 36.0 MCV 90.3 MCH 28.8 MCHC 31.9 L RDW 19.7 H Plt Count 185 MPV 8.1 Sodium 133 L Potassium 5.5 H Chloride 102 Carbon Dioxide 20.2 L Anion Gap 11 BUN 63 H Creatinine 3.34 H Estimated GFR 16 L Random Glucose 66 L Uric Acid 5.7 Calcium 8.4 L Total Bilirubin 0.6 AST 18 ALT 16 Alkaline Phosphatase 259 H Total Protein 7.3 Albumin 1.9 L Assessment and Plan - Assessment (1) IV drug abuse Code(s): F19.10 - Other psychoactive substance abuse, uncomplicated Status: Acute (2) Endocarditis Code(s): I38 - Endocarditis, valve unspecified Status: Acute (3) Sepsis Code(s): A41.9 - Sepsis, unspecified organism Status: Resolved (4) End-stage renal disease (ESRD) Code(s): N18.6 - End stage renal disease Status: Acute (5) Ascites Code(s): R18.8 - Other ascites Status: Acute (6) Acute kidney injury Code(s): N17.9 - Acute kidney failure, unspecified Status: Acute - Plan 28-year-old female with infective tricuspid valve endocarditis and multiorgan dysfunction secondary to endocarditis. Remains in heart failure and volume overload, and associated organ failure, including severe renal failure requiring renal replacement therapy. continue to daily pull fluid by HD. Broad spectrum abx. overall prognosis is quite poor given history of leaving AMA. Completed treatment for urinary cisco. Completed ~6 week regimen of IV ancef for MSSA bacteremia on 08/14. Infective tricuspid valve endocarditis Moderate tricuspid valve regurgitation Mixed septic and cardiogenic shock secondary to infective endocarditis- resolving. elevated troponin; no chest pain with no acute St-T changes on EKG- likely due to renal insufficiency. Bedside echo shows large tricuspid regurgitation with moderate to severe TR With noncompliance and multiple AMA discharges, Not a candidate for valve replacement until she can complete antibiotic therapy and demonstrate medical compliance by not leaving AMA. -Per ID patient, completed Ancef for MSSA on 08/14 -Continue Lasix 40 mg p.o.daily, monitor BMP. Sinus tachycardia - overall improved. -continue Lopressor 25 mg p.o. twice daily End-stage renal disease/hyponatremia/hyperkalemia -Patient came with outside hospital dialysis access in place. -Perm cath in place, nephrology following, appreciate assistance -Continue renal diet with fluid restriction 1.5L -Nephrology following- for HD arrangements- last HD was 09/09 continue to monitor the renal function . Ascites- Recurrent- definitely more tense c/w yesterday's exa, Secondary to severe renal injury and suspected CHF -Paracentesis 07/17 with 2.1L removed -paracentesis 08/11 with 2.8 L. -paracentesis 08/29. -paracentesis on 09/08. -continue dialysis for volume management. Paracentesis as needed. - abdomen more enlarged not tense today but still soft- no pain complains monitor- has not had HD- maybe that why consult radiology for paracentesis- if significant ascites on US elevated troponin- likely due to renal failure -chest pain free and no acute St-T changes on EKG IV drug dependence -prn oxycodone to prevent withdrawal -Counseling given. Thrombocytopenia- improved. -Stopped heparin, patient has been refusing. Depressed, likely situational Anxious -Psych attempted to evaluate 08/21, patient refused to speak to them. -Re-evaluated on 08/23 and provided psychosocial education and support for her anxiety and depression. -Continue Xanax 0.25 mg p.o. every 8 as needed for anxiety -Continue Prozac DVT Prophylaxis: SCDs evaluated by palliative care. Discharge Planning: (2) Endocarditis Qualifiers: Endocarditis type: infective Infective endocarditis organism: bacterial Chronicity: acute Qualified Code(s): I33.0 - Acute and subacute infective endocarditis (5) Ascites Qualifiers: Ascites type: other type Qualified Code(s): R18.8 - Other ascites
[2018-09-15 13:07] LABS: INR 1.3 Ratio; Prothrombin Time 13.2 sec (9.8-11.6)
--- NOTE | 2018-09-15 15:04 | US ---
EXAM DATE: 09/15/2018 3:01 PM EST AGE/SEX: 28 years / Female INDICATIONS: Evaluate for ascites. CLINICAL DATA: This is the patient's sequela encounter. Patient reports that signs and symptoms have been present for 1 day and indicates a pain score of 1/10. MEDICAL/SURGICAL HISTORY: . Renal disease, end stage. Endocarditis. IVDU. Sepsis. . Dialysis. Cholecystitis. . Paracentesis. COMPARISON: [facility] – [place] PARACENTESIS ABD W/IMAGE, 09/08/2018. . FINDINGS: Small amount of free fluid in the abdomen. CONCLUSION: Small amount of free fluid in the abdomen, insufficient for paracentesis. Electronically signed by: Benny Hendricks MD 09/15/2018 3:02 PM EST
[2018-09-15] MEDS: QUEtiapine 25 MG Tablet PO SCH (20:04)
[2018-09-16] MEDS: ALPRAZolam 0.25 MG Tablet PO PRN ×3 (03:45→20:45)
[2018-09-16 06:04] LABS: Hematocrit 33.1 % (35.0-46.0); Hemoglobin 10.7 gm/dL (11.6-15.3); Mean Corpuscular HGB Conc 32.3 % (32.0-36.0); Mean Corpuscular Hemoglobin 28.4 pg (27.0-34.0); Mean Platelet Volume 7.9 fL (7.0-11.0); Platelet Count 196 th/mm3 (150-450); Red Blood Count 3.76 mil/mm3 (4.00-5.30); Red Cell Distribution Width 19.6 % (11.6-17.2); White Blood Count 8.8 th/mm3 (4.0-11.0)
[2018-09-16 06:31] LABS: Calcium 8.3 mg/dL (8.5-10.1); Carbon Dioxide 23.6 meq/L (21.0-32.0); Potassium 4.6 meq/L (3.5-5.1)
[2018-09-16] MEDS: Furosemide 40 MG Tablet PO SCH (08:24)
[2018-09-16] MEDS: Famotidine 20 MG Tablet PO SCH ×2 (08:24→20:38)
[2018-09-16] MEDS: Metoprolol Tartrate 25 MG Tablet PO SCH ×2 (08:24→20:38)
[2018-09-16] MEDS: FLUoxetine 10 MG Capsule PO SCH (08:25)
[2018-09-16] MEDS: Sodium Chloride 0.9% 2 ML Flush BID IV.FLUSH SCH ×2 (08:26→20:39)
--- NOTE | 2018-09-16 13:04 | P.PN ---
Subjective Interval history: no complains dnies any pain Physical Exam Vital signs: Vital Signs 09/15/18 16:00 09/15/18 20:00 09/15/18 21:58 Temperature 97.9 F 97.5 F L Pulse Rate 83 86 Respiratory Rate 18 16 Blood Pressure 127/97 H 117/80 Pulse Oximetry 97 96 96 09/16/18 00:00 09/16/18 04:00 09/16/18 08:00 Temperature 98.0 F 98.1 F Pulse Rate 75 76 Respiratory Rate 18 18 17 Blood Pressure 112/79 112/77 Pulse Oximetry 99 92 L 09/16/18 12:00 Temperature 97.2 F L Pulse Rate 84 Respiratory Rate 18 Blood Pressure 122/89 Pulse Oximetry 96 Intake & Output 09/15/18 09/16/18 09/16/18 18:59 06:59 18:59 Intake Total 800 / 800 736 / 736 Output Total 600 / 600 Balance 200 / 200 736 / 736 Weight 59.3 kg Intake: Oral 800 / 800 736 / 736 Output: Urine 600 / 600 Other: # Voids 6 1 Date of Last Bowel Movement 09/13/18 09/14/18 # Bowel Movements 1 Narrative: GENERAL: Alert in NAD. SKIN: Warm and dry. Right upper chest permacath in place CARDIOVASCULAR: Regular rate and rhythm. Positive murmur RESPIRATORY: Lung sounds diminished. GASTROINTESTINAL: Abdomen soft, non-tender, mildly distended. MUSCULOSKELETAL: Extremities without clubbing, cyanosis. No obvious deformities. no edema Results - Labs CBC & Chem 7: 09/17/18 06:40 09/17/18 06:40 Laboratory Results - last 24 hr 09/15/18 09/16/18 09/16/18 11:58 05:06 05:06 WBC 8.8 RBC 3.76 L Hgb 10.7 L Hct 33.1 L MCV 88.0 MCH 28.4 MCHC 32.3 RDW 19.6 H Plt Count 196 MPV 7.9 PT 13.2 H INR 1.3 Sodium 134 L Potassium 4.6 D Chloride 100 Carbon Dioxide 23.6 Anion Gap 10 BUN 63 H Creatinine 3.14 H Estimated GFR 18 L Random Glucose 92 Calcium 8.3 L - Imaging Impressions Abdomen Ultrasound 09/15/18 00:00 CONCLUSION: Small amount of free fluid in the abdomen, insufficient for paracentesis. Assessment and Plan - Assessment (1) IV drug abuse Code(s): F19.10 - Other psychoactive substance abuse, uncomplicated Status: Acute (2) Endocarditis Code(s): I38 - Endocarditis, valve unspecified Status: Acute (3) Sepsis Code(s): A41.9 - Sepsis, unspecified organism Status: Resolved (4) End-stage renal disease (ESRD) Code(s): N18.6 - End stage renal disease Status: Acute (5) Ascites Code(s): R18.8 - Other ascites Status: Acute (6) Acute kidney injury Code(s): N17.9 - Acute kidney failure, unspecified Status: Acute - Plan 28-year-old female with infective tricuspid valve endocarditis and multiorgan dysfunction secondary to endocarditis. Remains in heart failure and volume overload, and associated organ failure, including severe renal failure requiring renal replacement therapy. continue to daily pull fluid by HD. Broad spectrum abx. overall prognosis is quite poor given history of leaving AMA. Completed treatment for urinary cisco. Completed ~6 week regimen of IV ancef for MSSA bacteremia on 08/14. Infective tricuspid valve endocarditis Moderate tricuspid valve regurgitation Mixed septic and cardiogenic shock secondary to infective endocarditis- resolving. elevated troponin; no chest pain with no acute St-T changes on EKG- likely due to renal insufficiency. Bedside echo shows large tricuspid regurgitation with moderate to severe TR With noncompliance and multiple AMA discharges, Not a candidate for valve replacement until she can complete antibiotic therapy and demonstrate medical compliance by not leaving AMA. -Per ID patient, completed Ancef for MSSA on 08/14 -Continue Lasix 40 mg p.o.daily, monitor BMP. Sinus tachycardia - overall improved. -continue Lopressor 25 mg p.o. twice daily End-stage renal disease/hyponatremia/hyperkalemia -Patient came with outside hospital dialysis access in place. -Perm cath in place, nephrology following, appreciate assistance -Continue renal diet with fluid restriction 1.5L -Nephrology following- for HD arrangements- last HD was 09/09 continue to monitor the renal function . Ascites- Recurrent- Secondary to severe renal injury and suspected CHF -Paracentesis 07/17 with 2.1L removed -paracentesis 08/11 with 2.8 L. -paracentesis 08/29. -paracentesis on 09/08. -continue dialysis for volume management. Paracentesis as needed. - abdomen more enlarged not tense today but still soft- no pain complains monitor- has not had HD-last HD 09/09 -repeat US- 09/15- no significant ascites elevated troponin- likely due to renal failure -chest pain free and no acute St-T changes on EKG IV drug dependence -prn oxycodone to prevent withdrawal -Counseling given. Thrombocytopenia- improved. -Stopped heparin, patient has been refusing. Depressed, likely situational Anxious -Psych attempted to evaluate 08/21, patient refused to speak to them. -Re-evaluated on 08/23 and provided psychosocial education and support for her anxiety and depression. -Continue Xanax 0.25 mg p.o. every 8 as needed for anxiety- -decrease to 0.125 mg po q 8 prn today 09/16 -Continue Prozac DVT Prophylaxis: SCDs Increase activity- deconditoning d/w CM= no insurance for 0xygen evaluated by palliative care. Discharge Planning: (2) Endocarditis Qualifiers: Endocarditis type: infective Infective endocarditis organism: bacterial Chronicity: acute Qualified Code(s): I33.0 - Acute and subacute infective endocarditis (5) Ascites Qualifiers: Ascites type: other type Qualified Code(s): R18.8 - Other ascites
--- NOTE | 2018-09-16 13:13 | P.PNNP ---
Subjective Interval history: Patient is alert, mild abd. distension, not eating well, no nausea, no SOB. Physical Exam Vital signs: Vital Signs 09/15/18 16:00 09/15/18 20:00 09/15/18 21:58 Temperature 97.9 F 97.5 F L Pulse Rate 83 86 Respiratory Rate 18 16 Blood Pressure 127/97 H 117/80 Pulse Oximetry 97 96 96 09/16/18 00:00 09/16/18 04:00 09/16/18 08:00 Temperature 98.0 F 98.1 F Pulse Rate 75 76 Respiratory Rate 18 18 17 Blood Pressure 112/79 112/77 Pulse Oximetry 99 92 L 09/16/18 12:00 Temperature 97.2 F L Pulse Rate 84 Respiratory Rate 18 Blood Pressure 122/89 Pulse Oximetry 96 Intake & Output 09/15/18 09/16/18 09/16/18 18:59 06:59 18:59 Intake Total 800 / 800 736 / 736 Output Total 600 / 600 Balance 200 / 200 736 / 736 Weight 59.3 kg Intake: Oral 800 / 800 736 / 736 Output: Urine 600 / 600 Other: # Voids 6 1 Date of Last Bowel Movement 09/13/18 09/14/18 # Bowel Movements 1 Narrative: GENERAL: Alert in NAD. SKIN: Warm and dry. Right upper chest permacath in place CARDIOVASCULAR: Regular rate and rhythm. Positive murmur RESPIRATORY: Lung sounds diminished. GASTROINTESTINAL: Abdomen soft, non-tender, mildly distended. MUSCULOSKELETAL: Extremities without clubbing, cyanosis. No obvious deformities. no edema Assessment and Plan - Assessment (1) Acute kidney injury Code(s): N17.9 - Acute kidney failure, unspecified Status: Acute Plan: Patient with TED, and now off HD. Non oliguric. HD is on hold, follow the urine out put and BMP. Creatinine is slightly better, 3.1. K is now normal. (2) Endocarditis Code(s): I38 - Endocarditis, valve unspecified Status: Acute Qualifiers: Endocarditis type: infective Infective endocarditis organism: bacterial Chronicity: acute Qualified Code(s): I33.0 - Acute and subacute infective endocarditis Plan: Antibiotics completed.
[2018-09-16] MEDS: QUEtiapine 25 MG Tablet PO SCH (20:38)
[2018-09-17] MEDS: FLUoxetine 10 MG Capsule PO SCH ×2 (07:40→08:04)
[2018-09-17] MEDS: ALPRAZolam 0.25 MG Tablet PO PRN ×2 (07:41→17:09)
[2018-09-17] MEDS: Metoprolol Tartrate 25 MG Tablet PO SCH ×3 (07:41→20:57)
[2018-09-17] MEDS: Furosemide 40 MG Tablet PO SCH ×2 (07:41→08:04)
[2018-09-17] MEDS: Famotidine 20 MG Tablet PO SCH ×3 (07:41→20:57)
[2018-09-17 08:00] LABS: Hematocrit 33.6 % (35.0-46.0); Hemoglobin 10.9 gm/dL (11.6-15.3); Mean Corpuscular HGB Conc 32.4 % (32.0-36.0); Mean Corpuscular Hemoglobin 28.9 pg (27.0-34.0); Mean Corpuscular Volume 89.3 fL (80.0-100.0); Mean Platelet Volume 7.9 fL (7.0-11.0); Platelet Count 193 th/mm3 (150-450); Red Blood Count 3.76 mil/mm3 (4.00-5.30); Red Cell Distribution Width 19.3 % (11.6-17.2); White Blood Count 10.9 th/mm3 (4.0-11.0)
[2018-09-17] MEDS: Sodium Chloride 0.9% 2 ML Flush BID IV.FLUSH SCH ×2 (08:04→20:58)
[2018-09-17 08:25] LABS: Calcium 8.8 mg/dL (8.5-10.1); Carbon Dioxide 23.9 meq/L (21.0-32.0); Potassium 4.7 meq/L (3.5-5.1)
--- NOTE | 2018-09-17 11:00 | P.PNNP ---
Subjective Interval history: No acute events overnight. Reports that she has been arguing with nursing in reference to getting water. Has chronic shortness of breath, no nausea, or vomiting. Creatinine at 3.4 today. <Debbie Godinez - Last Filed: 09/17/18 10:57> Physical Exam Vital signs: Vital Signs 09/16/18 12:00 09/16/18 16:00 09/17/18 00:00 Temperature 97.2 F L 98.2 F 99.4 F Pulse Rate 84 90 90 Respiratory Rate 18 18 19 Blood Pressure 122/89 128/91 H 98/67 L Pulse Oximetry 96 94 L 92 L 09/17/18 07:53 Temperature 97.0 F L Pulse Rate 78 Respiratory Rate 18 Blood Pressure 120/86 Pulse Oximetry 100 Intake & Output 09/16/18 09/17/18 09/17/18 18:59 06:59 18:59 Intake Total 1200 / 1200 296 / 296 Balance 1200 / 1200 296 / 296 Weight 55.9 kg Intake: Oral 1200 / 1200 296 / 296 Other: # Voids 1 0 Date of Last Bowel Movement 09/14/18 09/14/18 09/17/18 # Bowel Movements 1 Narrative: GENERAL: Alert in NAD. SKIN: Warm and dry. Right upper chest permacath in place CARDIOVASCULAR: Regular rate and rhythm. Positive murmur RESPIRATORY: Lung sounds diminished. GASTROINTESTINAL: Abdomen soft, non-tender, mildly distended. MUSCULOSKELETAL: Extremities without clubbing, cyanosis. No obvious deformities. no edema <Debbie Godinez - Last Filed: 09/17/18 10:57> Vital signs: Vital Signs 09/19/18 00:00 09/19/18 08:00 09/19/18 12:00 Temperature 98.6 F 98.3 F 97.9 F Pulse Rate 74 78 71 Respiratory Rate 15 17 17 Blood Pressure 106/74 119/71 110/73 Pulse Oximetry 96 95 92 L 09/19/18 16:00 Temperature 98.1 F Pulse Rate 74 Respiratory Rate 18 Blood Pressure 115/85 Pulse Oximetry 96 Intake & Output 09/19/18 09/19/18 09/20/18 06:59 18:59 06:59 Intake Total 480 / 480 1400 / 1400 Balance 480 / 480 1400 / 1400 Weight 58 kg Intake: Oral 480 / 480 1400 / 1400 Other: # Voids 3 4 Date of Last Bowel Movement 09/17/18 # Bowel Movements 0 <Bhargav Monge - Last Filed: 09/19/18 21:04> Assessment and Plan - Assessment (1) Acute kidney injury Code(s): N17.9 - Acute kidney failure, unspecified Status: Acute Plan: Patient with TED, and now off HD. Creatinine is stable at 3.4, potassium level of 4.7 Volume status and electrolytes stable. Continue low potassium diet. Non oliguric. HD is on hold, follow the urine out put and BMP. (2) Endocarditis Code(s): I38 - Endocarditis, valve unspecified Status: Acute Qualifiers: Endocarditis type: infective Infective endocarditis organism: bacterial Chronicity: acute Qualified Code(s): I33.0 - Acute and subacute infective endocarditis Plan: Antibiotics completed. <Debbie Godinez - Last Filed: 09/17/18 10:57> - Assessment (1) Acute kidney injury Code(s): N17.9 - Acute kidney failure, unspecified Status: Acute Plan: Patient seen and examined, agree with above. Creatinine is stable, non oliguric. Continue to hold HD. (2) Endocarditis Code(s): I38 - Endocarditis, valve unspecified Status: Acute Qualifiers: Endocarditis type: infective Infective endocarditis organism: bacterial Chronicity: acute Qualified Code(s): I33.0 - Acute and subacute infective endocarditis <Bhargav Monge - Last Filed: 09/19/18 21:04>
--- NOTE | 2018-09-17 11:15 | P.PN ---
Subjective Interval history: awake and alert, no complains taking po well + BM- 2x voding freely Physical Exam Vital signs: Vital Signs 09/16/18 12:00 09/16/18 16:00 09/17/18 00:00 Temperature 97.2 F L 98.2 F 99.4 F Pulse Rate 84 90 90 Respiratory Rate 18 18 19 Blood Pressure 122/89 128/91 H 98/67 L Pulse Oximetry 96 94 L 92 L 09/17/18 07:53 Temperature 97.0 F L Pulse Rate 78 Respiratory Rate 18 Blood Pressure 120/86 Pulse Oximetry 100 Intake & Output 09/16/18 09/17/18 09/17/18 18:59 06:59 18:59 Intake Total 1200 / 1200 296 / 296 Balance 1200 / 1200 296 / 296 Weight 55.9 kg Intake: Oral 1200 / 1200 296 / 296 Other: # Voids 1 0 Date of Last Bowel Movement 09/14/18 09/14/18 09/17/18 # Bowel Movements 1 Results - Labs CBC & Chem 7: 09/18/18 05:56 09/18/18 05:56 Laboratory Results - last 24 hr 09/17/18 09/17/18 06:40 06:40 WBC 10.9 RBC 3.76 L Hgb 10.9 L Hct 33.6 L MCV 89.3 MCH 28.9 MCHC 32.4 RDW 19.3 H Plt Count 193 MPV 7.9 Sodium 134 L Potassium 4.7 Chloride 99 Carbon Dioxide 23.9 Anion Gap 11 BUN 68 H Creatinine 3.44 H Estimated GFR 16 L Random Glucose 71 L Calcium 8.8 Assessment and Plan - Assessment (1) IV drug abuse Code(s): F19.10 - Other psychoactive substance abuse, uncomplicated Status: Acute (2) Endocarditis Code(s): I38 - Endocarditis, valve unspecified Status: Acute (3) Sepsis Code(s): A41.9 - Sepsis, unspecified organism Status: Resolved (4) End-stage renal disease (ESRD) Code(s): N18.6 - End stage renal disease Status: Acute (5) Ascites Code(s): R18.8 - Other ascites Status: Acute (6) Acute kidney injury Code(s): N17.9 - Acute kidney failure, unspecified Status: Acute - Plan 28-year-old female with infective tricuspid valve endocarditis and multiorgan dysfunction secondary to endocarditis. Remains in heart failure and volume overload, and associated organ failure, including severe renal failure requiring renal replacement therapy. continue to daily pull fluid by HD. Broad spectrum abx. overall prognosis is quite poor given history of leaving AMA. Completed treatment for urinary cisco. Completed ~6 week regimen of IV ancef for MSSA bacteremia on 08/14. Infective tricuspid valve endocarditis Moderate tricuspid valve regurgitation Mixed septic and cardiogenic shock secondary to infective endocarditis- resolving. elevated troponin; no chest pain with no acute St-T changes on EKG- likely due to renal insufficiency. Bedside echo shows large tricuspid regurgitation with moderate to severe TR With noncompliance and multiple AMA discharges, Not a candidate for valve replacement until she can complete antibiotic therapy and demonstrate medical compliance by not leaving AMA. -Per ID patient, completed Ancef for MSSA on 08/14 -Continue Lasix 40 mg p.o.daily, monitor BMP. Sinus tachycardia - overall improved. -continue Lopressor 25 mg p.o. twice daily End-stage renal disease/hyponatremia/hyperkalemia- non oligurc- last HD was 09/09 -Patient came with outside hospital dialysis access in place. -Perm cath in place, nephrology following, appreciate assistance -Continue renal diet with fluid restriction 1.5L continue to monitor the renal function .- HD on hold - Npehrology ff along with us Ascites- Recurrent- Secondary to severe renal injury and suspected CHF -Paracentesis 07/17 with 2.1L removed -paracentesis 08/11 with 2.8 L. -paracentesis 08/29. -paracentesis on 09/08. -continue dialysis for volume management. Paracentesis as needed. - abdomen more enlarged not tense today but still soft- no pain complains monitor- has not had HD-last HD 09/09 -repeat US- 09/15- no significant ascites - continue to monitor abdominal girth elevated troponin- likely due to renal failure -chest pain free and no acute St-T changes on EKG IV drug dependence -prn oxycodone to prevent withdrawal -Counseling given. Thrombocytopenia- improved. -Stopped heparin, patient has been refusing. Depressed, likely situational Anxious -Psych attempted to evaluate 08/21, patient refused to speak to them. -Re-evaluated on 08/23 and provided psychosocial education and support for her anxiety and depression. -Continue Xanax 0.25 mg p.o. every 8 as needed for anxiety- -decrease to 0.125 mg po q 8 prn today 09/16 -Continue Prozac DVT Prophylaxis: SCDs Increase activity- deconditoning d/w CM= no insurance for 0xygen evaluated by palliative care. Discharge Planning: (2) Endocarditis Qualifiers: Endocarditis type: infective Infective endocarditis organism: bacterial Chronicity: acute Qualified Code(s): I33.0 - Acute and subacute infective endocarditis (5) Ascites Qualifiers: Ascites type: other type Qualified Code(s): R18.8 - Other ascites
[2018-09-17] MEDS: QUEtiapine 25 MG Tablet PO SCH (20:57)
[2018-09-18] MEDS: ALPRAZolam 0.25 MG Tablet PO PRN ×2 (06:04→15:02)
[2018-09-18 07:20] LABS: Hematocrit 34.2 % (35.0-46.0); Hemoglobin 10.8 gm/dL (11.6-15.3); Mean Corpuscular HGB Conc 31.6 % (32.0-36.0); Mean Corpuscular Volume 88.6 fL (80.0-100.0); Platelet Count 201 th/mm3 (150-450); Red Blood Count 3.86 mil/mm3 (4.00-5.30); Red Cell Distribution Width 19.9 % (11.6-17.2); White Blood Count 7.9 th/mm3 (4.0-11.0)
[2018-09-18 07:41] LABS: Calcium 8.5 mg/dL (8.5-10.1); Carbon Dioxide 23.5 meq/L (21.0-32.0); Potassium 4.7 meq/L (3.5-5.1)
[2018-09-18] MEDS: Furosemide 40 MG Tablet PO SCH (08:03)
[2018-09-18] MEDS: Metoprolol Tartrate 25 MG Tablet PO SCH ×2 (08:03→20:05)
[2018-09-18] MEDS: Famotidine 20 MG Tablet PO SCH ×2 (08:04→20:05)
[2018-09-18] MEDS: Sodium Chloride 0.9% 2 ML Flush BID IV.FLUSH SCH ×2 (08:04→20:07)
[2018-09-18] MEDS: FLUoxetine 10 MG Capsule PO SCH (08:04)
--- NOTE | 2018-09-18 09:37 | P.PNNP ---
Subjective Interval history: Sitting up in bed. No acute events overnight. Denies any nausea, vomiting, or diarrhea. Appears comfortable. <Debbie Godinez - Last Filed: 09/18/18 09:32> Physical Exam Vital signs: Vital Signs 09/17/18 12:00 09/17/18 16:00 09/17/18 20:00 Temperature 98.2 F 98.0 F 97.4 F L Pulse Rate 82 81 89 Respiratory Rate 17 18 16 Blood Pressure 114/70 112/80 123/85 Pulse Oximetry 99 96 97 09/17/18 21:07 09/18/18 00:00 09/18/18 00:53 Temperature Pulse Rate 79 Respiratory Rate 17 Blood Pressure 108/67 Pulse Oximetry 97 96 96 09/18/18 08:00 Temperature 98.7 F Pulse Rate 82 Respiratory Rate 18 Blood Pressure 109/70 Pulse Oximetry 96 Intake & Output 09/17/18 09/18/18 09/18/18 18:59 06:59 18:59 Intake Total 4000 / 4000 360 / 360 Balance 4000 / 4000 360 / 360 Weight 60.2 kg Intake: Oral 4000 / 4000 360 / 360 Other: # Voids 1 1 Date of Last Bowel Movement 09/17/18 09/17/18 # Bowel Movements 2 Narrative: GENERAL: Alert in NAD. SKIN: Warm and dry. Right upper chest permacath in place CARDIOVASCULAR: Regular rate and rhythm. Positive murmur RESPIRATORY: Lung sounds diminished. GASTROINTESTINAL: Abdomen soft, non-tender, mildly distended. MUSCULOSKELETAL: Extremities without clubbing, cyanosis. No obvious deformities. no edema <Debbie Godinez - Last Filed: 09/18/18 09:32> Vital signs: Vital Signs 09/19/18 00:00 09/19/18 08:00 09/19/18 12:00 Temperature 98.6 F 98.3 F 97.9 F Pulse Rate 74 78 71 Respiratory Rate 15 17 17 Blood Pressure 106/74 119/71 110/73 Pulse Oximetry 96 95 92 L 09/19/18 16:00 Temperature 98.1 F Pulse Rate 74 Respiratory Rate 18 Blood Pressure 115/85 Pulse Oximetry 96 Intake & Output 09/19/18 09/19/18 09/20/18 06:59 18:59 06:59 Intake Total 480 / 480 1400 / 1400 Balance 480 / 480 1400 / 1400 Weight 58 kg Intake: Oral 480 / 480 1400 / 1400 Other: # Voids 3 4 Date of Last Bowel Movement 09/17/18 # Bowel Movements 0 <Bhargav Monge - Last Filed: 09/19/18 21:26> Assessment and Plan - Assessment (1) Acute kidney injury Code(s): N17.9 - Acute kidney failure, unspecified Status: Acute Plan: Acute kidney injury requiring hemodialysis. 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 Hemodialysis started at [facility] on June 26 with last hemodialysis on 09/09. Patients creatinine at 3.4 and potassium level normal, non oliguric Volume status and electrolytes stable. Continue low potassium diet. Continue lasix daily Avoid nephrotoxins. HD is on hold, follow the urine out put and BMP. (2) Endocarditis Code(s): I38 - Endocarditis, valve unspecified Status: Acute Qualifiers: Endocarditis type: infective Infective endocarditis organism: bacterial Chronicity: acute Qualified Code(s): I33.0 - Acute and subacute infective endocarditis Plan: Antibiotics completed. <Debbie Godinez - Last Filed: 09/18/18 09:32> - Assessment (1) Acute kidney injury Code(s): N17.9 - Acute kidney failure, unspecified Status: Acute Plan: Patient seen and examined, agree with above. Continue to hold HD. Creatinine is stable. (2) Endocarditis Code(s): I38 - Endocarditis, valve unspecified Status: Acute Qualifiers: Endocarditis type: infective Infective endocarditis organism: bacterial Chronicity: acute Qualified Code(s): I33.0 - Acute and subacute infective endocarditis <Bhargav Monge - Last Filed: 09/19/18 21:26>
--- NOTE | 2018-09-18 13:32 | P.PNIM ---
Subjective Interval history: Patient seen and examined this afternoon during lunchtime. no acute complaints of fever, chills, nausea, vomiting, headache, cp, sob or abdominal complaints. Patient says she doesnt want HD and wants to go home "yesterday." No other complaints Physical Exam Vital signs: Last Vital Signs Temp 98.3 F 09/18/18 12:00 Pulse 73 09/18/18 12:00 Resp 17 09/18/18 12:00 BP 114/75 09/18/18 12:00 Pulse Ox 97 09/18/18 12:00 Intake & Output 09/16/18 09/17/18 09/18/18 09/19/18 06:59 06:59 06:59 06:59 Intake Total 1536 / 1536 1496 / 1496 4360 / 4360 Output Total 600 / 600 Balance 936 / 936 1496 / 1496 4360 / 4360 Weight 59.3 kg 55.9 kg 60.2 kg Gen: nad cvs: s1/s2 resp: fine crackle at lung base on LEFT side but clear otherwise. no wheeze gi: + fluid wave, mild abdominal distention but soft. no guarding or rebound. + bowel sounds ext: 2+ radial and dpp. No LEG edema. no calf tenderness Results Labs CBC & Chem 7: 09/18/18 05:56 09/18/18 05:56 Assessment and Plan (1) IV drug abuse: Code(s): F19.10 - Other psychoactive substance abuse, uncomplicated Status: Acute (2) Endocarditis: Code(s): I38 - Endocarditis, valve unspecified Status: Acute (3) Sepsis: Code(s): A41.9 - Sepsis, unspecified organism Status: Resolved (4) End-stage renal disease (ESRD): Code(s): N18.6 - End stage renal disease Status: Acute (5) Ascites: Code(s): R18.8 - Other ascites Status: Acute (6) Acute kidney injury: Code(s): N17.9 - Acute kidney failure, unspecified Status: Acute Plan - continue to monitor bmp daily to trend renal function - nephrology consulted and recommendations appreciated - no HD for now - s/p endocarditis abx for MSSA as per ID - daily abdominal examinations. suspect patient may require another paracentesis in the coming days. Last attempted paracentesis was 09/08 - continue lasix therapy for abdominal ascities. - PT note reviewed from 09/17 - xanax prn anxiety if needed. - daily weights, fluid restriction to 1.5L to slow progression of abdominal fluid collection. DVT pxx: SCD code: FC dispo: medical service plan reviewed in part with patient. plan of care reviewed. Progress Note: Quality VTE Deep Vein Thrombosis/Pulmonary Embolism Present on Admission: Yes _ (1) Endocarditis Qualifiers: Chronicity: acute Endocarditis type: infective Infective endocarditis organism: bacterial Qualified Code(s): I33.0 - Acute and subacute infective endocarditis (2) Sepsis Qualifiers: Sepsis type: (3) Ascites Qualifiers: Ascites type: other type Qualified Code(s): R18.8 - Other ascites
[2018-09-18] MEDS: QUEtiapine 25 MG Tablet PO SCH (20:05)
[2018-09-19] MEDS: ALPRAZolam 0.25 MG Tablet PO PRN ×2 (00:56→16:29)
[2018-09-19 07:25] LABS: Hemoglobin 10.9 gm/dL (11.6-15.3); Mean Corpuscular HGB Conc 31.3 % (32.0-36.0); Mean Corpuscular Hemoglobin 27.7 pg (27.0-34.0); Mean Corpuscular Volume 88.6 fL (80.0-100.0); Mean Platelet Volume 7.8 fL (7.0-11.0); Platelet Count 218 th/mm3 (150-450); Red Blood Count 3.95 mil/mm3 (4.00-5.30); Red Cell Distribution Width 19.7 % (11.6-17.2); White Blood Count 7.8 th/mm3 (4.0-11.0)
[2018-09-19 08:03] LABS: Calcium 8.5 mg/dL (8.5-10.1); Carbon Dioxide 22.8 meq/L (21.0-32.0); Potassium 4.8 meq/L (3.5-5.1)
[2018-09-19] MEDS: Metoprolol Tartrate 25 MG Tablet PO SCH ×2 (09:37→21:43)
[2018-09-19] MEDS: FLUoxetine 10 MG Capsule PO SCH (09:37)
[2018-09-19] MEDS: Famotidine 20 MG Tablet PO SCH ×2 (09:37→21:43)
[2018-09-19] MEDS: Furosemide 40 MG Tablet PO SCH (09:37)
[2018-09-19] MEDS: Sodium Chloride 0.9% 2 ML Flush BID IV.FLUSH SCH ×2 (09:38→21:52)
--- NOTE | 2018-09-19 09:50 | P.PNNP ---
Subjective Interval history: No acute events overnight. Creatinine has remained stable at 3.48. <April Godinezne - Last Filed: 09/19/18 15:29> Physical Exam Vital signs: Vital Signs 09/18/18 12:00 09/18/18 16:00 09/18/18 16:59 Temperature 98.3 F 97.7 F Pulse Rate 73 80 Respiratory Rate 17 17 Blood Pressure 114/75 111/77 Pulse Oximetry 97 93 L 96 09/18/18 20:00 09/19/18 00:00 09/19/18 08:00 Temperature 98.1 F 98.6 F 98.3 F Pulse Rate 83 74 78 Respiratory Rate 18 15 17 Blood Pressure 121/83 106/74 119/71 Pulse Oximetry 91 L 96 95 Intake & Output 09/18/18 09/19/18 09/19/18 18:59 06:59 18:59 Intake Total 1200 / 1200 480 / 480 Balance 1200 / 1200 480 / 480 Weight 58 kg Intake: Oral 1200 / 1200 480 / 480 Other: # Voids 5 3 Date of Last Bowel Movement 09/17/18 # Bowel Movements 0 Narrative: GENERAL: Alert in NAD. SKIN: Warm and dry. Right upper chest permacath in place CARDIOVASCULAR: Regular rate and rhythm. Positive murmur RESPIRATORY: Lung sounds diminished. GASTROINTESTINAL: Abdomen soft, non-tender, mildly distended. MUSCULOSKELETAL: Extremities without clubbing, cyanosis. No obvious deformities. no edema <AugustinapasqualeApril pompane - Last Filed: 09/19/18 15:29> Vital signs: Vital Signs 09/20/18 23:53 09/21/18 08:00 09/21/18 09:21 Temperature 98.7 F 98.3 F Pulse Rate 69 71 Respiratory Rate 16 17 Blood Pressure 94/55 L 110/67 Pulse Oximetry 94 L 98 98 09/21/18 11:01 09/21/18 12:00 09/21/18 15:11 Temperature 98.4 F Pulse Rate 65 Respiratory Rate 18 17 18 Blood Pressure 109/74 Pulse Oximetry 94 L 09/21/18 16:00 Temperature 97.4 F L Pulse Rate 70 Respiratory Rate 18 Blood Pressure 117/81 Pulse Oximetry 96 Intake & Output 09/21/18 09/21/18 09/22/18 06:59 18:59 06:59 Intake Total 340 / 340 5000 / 5000 Output Total 400 / 400 150 / 150 Balance -60 / -60 4850 / 4850 Weight 59 kg Intake: Oral 340 / 340 5000 / 5000 Output: Urine 400 / 400 150 / 150 Other: # Voids 6 Date of Last Bowel Movement 09/20/18 09/20/18 # Bowel Movements 4 <Bhargav Monge - Last Filed: 09/21/18 20:26> Assessment and Plan - Assessment (1) Acute kidney injury Code(s): N17.9 - Acute kidney failure, unspecified Status: Acute Plan: Acute kidney injury requiring hemodialysis. 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 Hemodialysis started at [facility] on June 26 with last hemodialysis on 09/09. Patients creatinine at 3.4 and potassium level normal, non oliguric Volume status and electrolytes stable. Continue low potassium diet. Continue lasix daily Avoid nephrotoxins. HD is on hold, follow the urine out put and BMP. Awaiting some improvement in creatinine prior to clearing for discharge. Labs ordered daily. (2) Endocarditis Code(s): I38 - Endocarditis, valve unspecified Status: Acute Qualifiers: Endocarditis type: infective Infective endocarditis organism: bacterial Chronicity: acute Qualified Code(s): I33.0 - Acute and subacute infective endocarditis Plan: Antibiotics completed. <Debbie Godinez - Last Filed: 09/19/18 15:29> - Assessment (1) Acute kidney injury Code(s): N17.9 - Acute kidney failure, unspecified Status: Acute Plan: Patient seen and examined, agree with above. Continue to hold HD, Creatinine is almost same. (2) Endocarditis Code(s): I38 - Endocarditis, valve unspecified Status: Acute Qualifiers: Endocarditis type: infective Infective endocarditis organism: bacterial Chronicity: acute Qualified Code(s): I33.0 - Acute and subacute infective endocarditis <Bhargav Monge - Last Filed: 09/21/18 20:26>
--- NOTE | 2018-09-19 16:32 | P.PN ---
Subjective Interval history: Bed she is sleepy not in acute distress no complaints at this time. Physical Exam Vital signs: Vital Signs 09/18/18 16:59 09/18/18 20:00 09/19/18 00:00 Temperature 98.1 F 98.6 F Pulse Rate 83 74 Respiratory Rate 18 15 Blood Pressure 121/83 106/74 Pulse Oximetry 96 91 L 96 09/19/18 08:00 09/19/18 12:00 09/19/18 16:00 Temperature 98.3 F 97.9 F 98.1 F Pulse Rate 78 71 74 Respiratory Rate 17 17 18 Blood Pressure 119/71 110/73 115/85 Pulse Oximetry 95 92 L 96 Intake & Output 09/18/18 09/19/18 09/19/18 18:59 06:59 18:59 Intake Total 1200 / 1200 480 / 480 Balance 1200 / 1200 480 / 480 Weight 58 kg Intake: Oral 1200 / 1200 480 / 480 Other: # Voids 5 3 Date of Last Bowel Movement 09/17/18 09/17/18 # Bowel Movements 0 Narrative: GENERAL: 28-year-old female, appears in NAD. SKIN: Warm and dry. Right upper chest permacath in place CARDIOVASCULAR: Regular rate and rhythm. Positive murmur RESPIRATORY: Lung sounds diminished. GASTROINTESTINAL: Abdomen soft, non-tender, mildly distended. MUSCULOSKELETAL: Extremities without clubbing, cyanosis. No obvious deformities. no edema Results - Labs CBC & Chem 7: 09/19/18 06:00 09/19/18 06:00 Laboratory Results - last 24 hr 09/19/18 09/19/18 06:00 06:00 WBC 7.8 RBC 3.95 L Hgb 10.9 L Hct 35.0 MCV 88.6 MCH 27.7 MCHC 31.3 L RDW 19.7 H Plt Count 218 MPV 7.8 Sodium 132 L Potassium 4.8 Chloride 97 L Carbon Dioxide 22.8 Anion Gap 12 BUN 72 H Creatinine 3.48 H Estimated GFR 16 L Random Glucose 89 Calcium 8.5 Assessment and Plan - Assessment (1) IV drug abuse Code(s): F19.10 - Other psychoactive substance abuse, uncomplicated Status: Acute (2) Endocarditis Code(s): I38 - Endocarditis, valve unspecified Status: Acute (3) Sepsis Code(s): A41.9 - Sepsis, unspecified organism Status: Resolved (4) End-stage renal disease (ESRD) Code(s): N18.6 - End stage renal disease Status: Acute (5) Ascites Code(s): R18.8 - Other ascites Status: Acute (6) Acute kidney injury Code(s): N17.9 - Acute kidney failure, unspecified Status: Acute - Plan 28-year-old female with infective tricuspid valve endocarditis and multiorgan dysfunction secondary to endocarditis. Remains in heart failure and volume overload, and associated organ failure, including severe renal failure requiring renal replacement therapy. continue to daily pull fluid by HD. Broad spectrum abx. overall prognosis is quite poor given history of leaving AMA. Completed treatment for urinary cisco. Completed ~6 week regimen of IV ancef for MSSA bacteremia on 08/14. Infective tricuspid valve endocarditis Moderate tricuspid valve regurgitation Mixed septic and cardiogenic shock secondary to infective endocarditis- resolving. elevated troponin; no chest pain with no acute St-T changes on EKG- likely due to renal insufficiency. Bedside echo shows large tricuspid regurgitation with moderate to severe TR With noncompliance and multiple AMA discharges, Not a candidate for valve replacement until she can complete antibiotic therapy and demonstrate medical compliance by not leaving AMA. -Per ID patient, completed Ancef for MSSA on 08/14 -Continue Lasix 40 mg p.o.daily, monitor BMP. Sinus tachycardia - overall improved. -continue Lopressor 25 mg p.o. twice daily End-stage renal disease/hyponatremia/hyperkalemia- non oligurc- last HD was 09/09 -Patient came with outside hospital dialysis access in place. -Perm cath in place, nephrology following, appreciate assistance -Continue renal diet with fluid restriction 1.5L continue to monitor the renal function .- HD on hold - Nephrology ff Ascites- Recurrent- Secondary to severe renal injury and suspected CHF -Paracentesis 07/17 with 2.1L removed -paracentesis 08/11 with 2.8 L. -paracentesis 08/29. -paracentesis on 09/08. -continue dialysis for volume management. Paracentesis as needed. - abdomen more enlarged not tense today but still soft- no pain complains monitor- has not had HD-last HD 09/09 -repeat US- 09/15- no significant ascites - continue to monitor abdominal girth elevated troponin- likely due to renal failure -chest pain free and no acute St-T changes on EKG IV drug dependence -prn oxycodone to prevent withdrawal -Counseling given. Thrombocytopenia- improved. -Stopped heparin, patient has been refusing. Depressed, likely situational Anxious -Psych attempted to evaluate 08/21, patient refused to speak to them. -Re-evaluated on 08/23 and provided psychosocial education and support for her anxiety and depression. -Continue Xanax 0.25 mg p.o. every 8 as needed for anxiety- -decrease to 0.125 mg po q 8 prn today 09/16 -Continue Prozac DVT Prophylaxis: SCDs Increase activity- deconditioning per CM= no insurance for Oxygen evaluated by palliative care. Discharge plan Pending improvement and clearance from consultants. Patient needs oxygen at home however no insurance. Difficult discharge (2) Endocarditis Qualifiers: Endocarditis type: infective Infective endocarditis organism: bacterial Chronicity: acute Qualified Code(s): I33.0 - Acute and subacute infective endocarditis (5) Ascites Qualifiers: Ascites type: other type Qualified Code(s): R18.8 - Other ascites
[2018-09-19] MEDS: QUEtiapine 25 MG Tablet PO SCH (21:44)
[2018-09-20] MEDS: ALPRAZolam 0.25 MG Tablet PO PRN ×3 (04:01→20:52)
[2018-09-20 08:00] LABS: Calcium 8.6 mg/dL (8.5-10.1)
[2018-09-20 08:18] LABS: Potassium 5.1 meq/L (3.5-5.1)
[2018-09-20] MEDS: Metoprolol Tartrate 25 MG Tablet PO SCH ×2 (08:31→20:47)
[2018-09-20] MEDS: Sodium Chloride 0.9% 2 ML Flush BID IV.FLUSH SCH ×2 (08:31→20:48)
[2018-09-20] MEDS: FLUoxetine 10 MG Capsule PO SCH (08:31)
[2018-09-20] MEDS: Famotidine 20 MG Tablet PO SCH ×2 (08:31→20:47)
[2018-09-20] MEDS: Furosemide 40 MG Tablet PO SCH (08:31)
--- NOTE | 2018-09-20 09:46 | P.PNNP ---
Subjective Interval history: No events overnight. Eating breakfast with no complaints. <Debbie Godinez - Last Filed: 09/20/18 16:08> Physical Exam Vital signs: Vital Signs 09/19/18 12:00 09/19/18 16:00 09/19/18 20:00 Temperature 97.9 F 98.1 F 98.3 F Pulse Rate 71 74 74 Respiratory Rate 17 18 19 Blood Pressure 110/73 115/85 126/92 H Pulse Oximetry 92 L 96 95 09/20/18 00:00 09/20/18 00:17 09/20/18 07:50 Temperature 98.6 F 98.0 F Pulse Rate 68 74 Respiratory Rate 19 18 16 Blood Pressure 93/58 L 102/61 Pulse Oximetry 95 93 L Intake & Output 09/19/18 09/20/18 09/20/18 18:59 06:59 18:59 Intake Total 1400 / 1400 236 / 236 Balance 1400 / 1400 236 / 236 Weight 60.3 kg Intake: Oral 1400 / 1400 236 / 236 Other: # Voids 4 1 Date of Last Bowel Movement 09/17/18 09/19/18 # Bowel Movements 0 1 Narrative: GENERAL: 28-year-old female, appears in NAD. SKIN: Warm and dry. Right upper chest permacath in place CARDIOVASCULAR: Regular rate and rhythm. Positive murmur RESPIRATORY: Lung sounds diminished. GASTROINTESTINAL: Abdomen soft, non-tender, mildly distended. MUSCULOSKELETAL: Extremities without clubbing, cyanosis. No obvious deformities. no edema <Debbie Godinez - Last Filed: 09/20/18 16:08> Vital signs: Vital Signs 09/22/18 00:00 09/22/18 08:00 09/22/18 09:05 Temperature 97.8 F 98.3 F Pulse Rate 72 74 Respiratory Rate 18 18 Blood Pressure 103/74 107/67 Pulse Oximetry 93 L 94 L 93 L 09/22/18 12:00 09/22/18 16:00 Temperature 98.6 F 97.9 F Pulse Rate 70 83 Respiratory Rate 18 18 Blood Pressure 99/58 L 114/78 Pulse Oximetry 96 92 L Intake & Output 09/22/18 09/22/18 09/23/18 06:59 18:59 06:59 Intake Total 480 / 480 720 / 720 Balance 480 / 480 720 / 720 Weight 58.3 kg Intake: Oral 480 / 480 720 / 720 Other: # Voids 3 4 Date of Last Bowel Movement 09/22/18 # Bowel Movements 1 <Bhargav Monge - Last Filed: 09/22/18 20:57> Assessment and Plan - Assessment (1) Acute kidney injury Code(s): N17.9 - Acute kidney failure, unspecified Status: Acute Plan: Acute kidney injury requiring hemodialysis. 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 Hemodialysis started at [facility] on June 26 with last hemodialysis on 09/09. Patients creatinine at 3.4 and potassium level normal, non oliguric. Volume status and electrolytes stable. Continue low potassium diet. HD is on hold, follow the urine out put and BMP. Awaiting some improvement in creatinine prior to clearing for discharge. (2) Endocarditis Code(s): I38 - Endocarditis, valve unspecified Status: Acute Qualifiers: Endocarditis type: infective Infective endocarditis organism: bacterial Chronicity: acute Qualified Code(s): I33.0 - Acute and subacute infective endocarditis Plan: Antibiotics completed. <Debbie Godinez - Last Filed: 09/20/18 16:08> - Assessment (1) Acute kidney injury Code(s): N17.9 - Acute kidney failure, unspecified Status: Acute Plan: Patient seen and examined, agree with above. Creatinine is stable, continue to hold HD. (2) Endocarditis Code(s): I38 - Endocarditis, valve unspecified Status: Acute Qualifiers: Endocarditis type: infective Infective endocarditis organism: bacterial Chronicity: acute Qualified Code(s): I33.0 - Acute and subacute infective endocarditis <Bhargav Monge - Last Filed: 09/22/18 20:57>
--- NOTE | 2018-09-20 15:19 | P.PN ---
Subjective Interval history: The patient is in bed appears in not acute distress at this time. No complaints. Physical Exam Vital signs: Vital Signs 09/19/18 16:00 09/19/18 20:00 09/20/18 00:00 Temperature 98.1 F 98.3 F 98.6 F Pulse Rate 74 74 68 Respiratory Rate 18 19 19 Blood Pressure 115/85 126/92 H 93/58 L Pulse Oximetry 96 95 95 09/20/18 00:17 09/20/18 07:50 09/20/18 08:29 Temperature 98.0 F Pulse Rate 74 Respiratory Rate 18 16 Blood Pressure 102/61 Pulse Oximetry 93 L 95 09/20/18 10:36 09/20/18 11:55 Temperature 97.5 F L Pulse Rate 71 Respiratory Rate 17 Blood Pressure 107/71 Pulse Oximetry 95 98 Intake & Output 09/19/18 09/20/18 09/20/18 18:59 06:59 18:59 Intake Total 1400 / 1400 236 / 236 Balance 1400 / 1400 236 / 236 Weight 60.3 kg Intake: Oral 1400 / 1400 236 / 236 Other: # Voids 4 1 Date of Last Bowel Movement 09/17/18 09/19/18 09/20/18 # Bowel Movements 0 1 Narrative: GENERAL: 28-year-old female, appears in NAD. SKIN: Warm and dry. Right upper chest permacath in place CARDIOVASCULAR: Regular rate and rhythm. Positive murmur RESPIRATORY: Lung sounds diminished. GASTROINTESTINAL: Abdomen soft, non-tender, mildly distended. MUSCULOSKELETAL: Extremities without clubbing, cyanosis. No obvious deformities. no edema Results - Labs CBC & Chem 7: 09/19/18 06:00 09/20/18 06:32 Laboratory Results - last 24 hr 09/20/18 06:32 Sodium 132 L Potassium 5.1 Chloride 98 Carbon Dioxide 25.0 Anion Gap 9 BUN 74 H Creatinine 3.44 H Estimated GFR 16 L Random Glucose 128 H Calcium 8.6 Assessment and Plan - Assessment (1) IV drug abuse Code(s): F19.10 - Other psychoactive substance abuse, uncomplicated Status: Acute (2) Endocarditis Code(s): I38 - Endocarditis, valve unspecified Status: Acute (3) Sepsis Code(s): A41.9 - Sepsis, unspecified organism Status: Resolved (4) End-stage renal disease (ESRD) Code(s): N18.6 - End stage renal disease Status: Acute (5) Ascites Code(s): R18.8 - Other ascites Status: Acute (6) Acute kidney injury Code(s): N17.9 - Acute kidney failure, unspecified Status: Acute - Plan 28-year-old female with infective tricuspid valve endocarditis and multiorgan dysfunction secondary to endocarditis. Remains in heart failure and volume overload, and associated organ failure, including severe renal failure requiring renal replacement therapy. continue to daily pull fluid by HD. Broad spectrum abx. overall prognosis is quite poor given history of leaving AMA. Completed treatment for urinary cisco. Completed ~6 week regimen of IV ancef for MSSA bacteremia on 08/14. Infective tricuspid valve endocarditis Moderate tricuspid valve regurgitation Mixed septic and cardiogenic shock secondary to infective endocarditis- resolving. elevated troponin; no chest pain with no acute St-T changes on EKG- likely due to renal insufficiency. Bedside echo shows large tricuspid regurgitation with moderate to severe TR With noncompliance and multiple AMA discharges, Not a candidate for valve replacement until she can complete antibiotic therapy and demonstrate medical compliance by not leaving AMA. -Per ID patient, completed Ancef for MSSA on 08/14 -Continue Lasix 40 mg p.o.daily, monitor BMP. Sinus tachycardia - overall improved. -continue Lopressor 25 mg p.o. twice daily End-stage renal disease/hyponatremia/hyperkalemia- non oligurc- last HD was 09/09 -Patient came with outside hospital dialysis access in place. -Perm cath in place, nephrology following, appreciate assistance -Continue renal diet with fluid restriction 1.5L continue to monitor the renal function .- HD on hold - Nephrology ff Ascites- Recurrent- Secondary to severe renal injury and suspected CHF -Paracentesis 07/17 with 2.1L removed -paracentesis 08/11 with 2.8 L. -paracentesis 08/29. -paracentesis on 09/08. -continue dialysis for volume management. Paracentesis as needed. - abdomen more enlarged not tense today but still soft- no pain complains monitor- has not had HD-last HD 09/09 -repeat US- 09/15- no significant ascites - continue to monitor abdominal girth elevated troponin- likely due to renal failure -chest pain free and no acute St-T changes on EKG IV drug dependence -prn oxycodone to prevent withdrawal -Counseling given. Thrombocytopenia- improved. -Stopped heparin, patient has been refusing. Depressed, likely situational Anxious -Psych attempted to evaluate 08/21, patient refused to speak to them. -Re-evaluated on 08/23 and provided psychosocial education and support for her anxiety and depression. -Continue Xanax 0.25 mg p.o. every 8 as needed for anxiety- -decrease to 0.125 mg po q 8 prn today 09/16 -Continue Prozac DVT Prophylaxis: SCDs Increase activity- deconditioning per CM= no insurance for Oxygen evaluated by palliative care. Discharge plan Pending improvement and clearance from consultants. Patient needs oxygen at home however no insurance. Difficult discharge (2) Endocarditis Qualifiers: Endocarditis type: infective Infective endocarditis organism: bacterial Chronicity: acute Qualified Code(s): I33.0 - Acute and subacute infective endocarditis (5) Ascites Qualifiers: Ascites type: other type Qualified Code(s): R18.8 - Other ascites
[2018-09-20] MEDS: QUEtiapine 25 MG Tablet PO SCH (20:47)
[2018-09-20] MEDS: Melatonin 5 MG Tablet PO PRN (20:47)
[2018-09-21] MEDS: ALPRAZolam 0.25 MG Tablet PO PRN ×2 (05:52→14:41)
[2018-09-21] MEDS: Famotidine 20 MG Tablet PO SCH ×2 (10:25→20:47)
[2018-09-21] MEDS: Metoprolol Tartrate 25 MG Tablet PO SCH ×2 (10:25→20:47)
[2018-09-21] MEDS: Furosemide 40 MG Tablet PO SCH (10:26)
[2018-09-21] MEDS: FLUoxetine 10 MG Capsule PO SCH (10:26)
[2018-09-21 11:39] LABS: Calcium 8.3 mg/dL (8.5-10.1); Carbon Dioxide 27.9 meq/L (21.0-32.0); Phosphorus 2.3 mg/dL (2.5-4.9); Potassium 4.9 meq/L (3.5-5.1)
--- NOTE | 2018-09-21 13:38 | P.PNNP ---
Subjective Interval history: No acute events overnight. Creatinine essentially unchanged at 3.48, potassium level at 4.8. <Debbie Godinez - Last Filed: 09/21/18 13:37> Physical Exam Vital signs: Vital Signs 09/20/18 16:00 09/20/18 20:00 09/20/18 20:21 Temperature 98.7 F Pulse Rate 73 75 Respiratory Rate 17 16 Blood Pressure 112/69 109/76 Pulse Oximetry 98 95 95 09/20/18 23:53 09/21/18 08:00 09/21/18 09:21 Temperature 98.7 F 98.3 F Pulse Rate 69 71 Respiratory Rate 16 17 Blood Pressure 94/55 L 110/67 Pulse Oximetry 94 L 98 98 09/21/18 12:00 Temperature 98.4 F Pulse Rate 65 Respiratory Rate 17 Blood Pressure 109/74 Pulse Oximetry 94 L Intake & Output 09/20/18 09/21/18 09/21/18 18:59 06:59 18:59 Intake Total 1200 / 1200 340 / 340 Output Total 400 / 400 150 / 150 Balance 1200 / 1200 -60 / -60 -150 / -150 Weight 59 kg Intake: Oral 1200 / 1200 340 / 340 Output: Urine 400 / 400 150 / 150 Other: # Voids 2 Date of Last Bowel Movement 09/20/18 09/20/18 Narrative: GENERAL: 28-year-old female, appears in NAD. SKIN: Warm and dry. Right upper chest permacath in place CARDIOVASCULAR: Regular rate and rhythm. Positive murmur RESPIRATORY: Lung sounds diminished. GASTROINTESTINAL: Abdomen soft, non-tender, mildly distended. MUSCULOSKELETAL: Extremities without clubbing, cyanosis. No obvious deformities. no edema <Debbie Godinez - Last Filed: 09/21/18 13:37> Vital signs: Vital Signs 09/28/18 00:00 09/28/18 03:50 09/28/18 08:00 Temperature 98 F 98.8 F Pulse Rate 72 80 78 Respiratory Rate 17 19 19 Blood Pressure 96/61 L 114/84 111/69 Pulse Oximetry 94 L 92 L 94 L 09/28/18 11:25 09/28/18 12:00 09/28/18 16:00 Temperature 97.6 F 98.0 F Pulse Rate 76 81 Respiratory Rate 18 19 Blood Pressure 112/71 113/74 Pulse Oximetry 94 L 94 L 97 Intake & Output 09/28/18 09/28/18 09/29/18 06:59 18:59 06:59 Intake Total 240 / 240 900 / 900 Output Total 750 / 750 Balance 240 / 240 150 / 150 Weight 58.4 kg Intake: Oral 240 / 240 900 / 900 Output: Urine 750 / 750 Other: # Voids 1 Date of Last Bowel Movement 09/27/18 09/27/18 # Bowel Movements 1 <Bhargav Monge - Last Filed: 09/28/18 20:12> Assessment and Plan - Assessment (1) Acute kidney injury Code(s): N17.9 - Acute kidney failure, unspecified Status: Acute Plan: Acute kidney injury requiring hemodialysis. 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 Hemodialysis started at [facility] on June 26 with last hemodialysis on 09/09. Patients creatinine essentially unchanged at 3.4 and potassium level normal, non oliguric. Volume status and electrolytes stable. Continue low potassium diet. HD is on hold, follow the urine out put and BMP. Awaiting some improvement in creatinine prior to clearing for discharge. (2) Endocarditis Code(s): I38 - Endocarditis, valve unspecified Status: Acute Qualifiers: Endocarditis type: infective Infective endocarditis organism: bacterial Chronicity: acute Qualified Code(s): I33.0 - Acute and subacute infective endocarditis Plan: Antibiotics completed. <Debbie Godinez - Last Filed: 09/21/18 13:37> - Assessment (1) Acute kidney injury Code(s): N17.9 - Acute kidney failure, unspecified Status: Acute Plan: Patient seen and examined, agree with above. Patient remain with almost same Creatinine. HD has been on hold. Waiting for some improvement in the renal function. (2) Endocarditis Code(s): I38 - Endocarditis, valve unspecified Status: Acute Qualifiers: Endocarditis type: infective Infective endocarditis organism: bacterial Chronicity: acute Qualified Code(s): I33.0 - Acute and subacute infective endocarditis <Bhargav Monge - Last Filed: 09/28/18 20:12>
--- NOTE | 2018-09-21 15:17 | P.PN ---
Subjective Interval history: The margin of the bed trying to eat. He says he is not eating much no appetite. Has diffuse abdominal pain no fever or chills. Breathing fairly well still requires oxygen. No chest pain or cough. Physical Exam Vital signs: Vital Signs 09/20/18 16:00 09/20/18 20:00 09/20/18 20:21 Temperature 98.7 F Pulse Rate 73 75 Respiratory Rate 17 16 Blood Pressure 112/69 109/76 Pulse Oximetry 98 95 95 09/20/18 23:53 09/21/18 08:00 09/21/18 09:21 Temperature 98.7 F 98.3 F Pulse Rate 69 71 Respiratory Rate 16 17 Blood Pressure 94/55 L 110/67 Pulse Oximetry 94 L 98 98 09/21/18 12:00 Temperature 98.4 F Pulse Rate 65 Respiratory Rate 17 Blood Pressure 109/74 Pulse Oximetry 94 L Intake & Output 09/20/18 09/21/18 09/21/18 18:59 06:59 18:59 Intake Total 1200 / 1200 340 / 340 Output Total 400 / 400 150 / 150 Balance 1200 / 1200 -60 / -60 -150 / -150 Weight 59 kg Intake: Oral 1200 / 1200 340 / 340 Output: Urine 400 / 400 150 / 150 Other: # Voids 2 Date of Last Bowel Movement 09/20/18 09/20/18 Narrative: GENERAL: 28-year-old female, appears in NAD. SKIN: Warm and dry. Right upper chest permacath in place CARDIOVASCULAR: Regular rate and rhythm. Positive murmur RESPIRATORY: Lung sounds diminished. GASTROINTESTINAL: Abdomen soft, non-tender, mildly distended. MUSCULOSKELETAL: Extremities without clubbing, cyanosis. No obvious deformities. no edema Results - Labs CBC & Chem 7: 09/19/18 06:00 09/21/18 11:02 Laboratory Results - last 24 hr 09/21/18 11:02 Sodium 133 L Potassium 4.9 Chloride 100 Carbon Dioxide 27.9 Anion Gap 5 BUN 74 H Creatinine 3.48 H Estimated GFR 16 L Random Glucose 85 Calcium 8.3 L Phosphorus 2.3 L Albumin 2.0 L Assessment and Plan - Assessment (1) IV drug abuse Code(s): F19.10 - Other psychoactive substance abuse, uncomplicated Status: Acute (2) Endocarditis Code(s): I38 - Endocarditis, valve unspecified Status: Acute (3) Sepsis Code(s): A41.9 - Sepsis, unspecified organism Status: Resolved (4) End-stage renal disease (ESRD) Code(s): N18.6 - End stage renal disease Status: Acute (5) Ascites Code(s): R18.8 - Other ascites Status: Acute (6) Acute kidney injury Code(s): N17.9 - Acute kidney failure, unspecified Status: Acute - Plan 28-year-old female with infective tricuspid valve endocarditis and multiorgan dysfunction secondary to endocarditis. Remains in heart failure and volume overload, and associated organ failure, including severe renal failure requiring renal replacement therapy. continue to daily pull fluid by HD. Broad spectrum abx. overall prognosis is quite poor given history of leaving AMA. Completed treatment for urinary cisco. Completed ~6 week regimen of IV ancef for MSSA bacteremia on 08/14. Infective tricuspid valve endocarditis Moderate tricuspid valve regurgitation Mixed septic and cardiogenic shock secondary to infective endocarditis- resolving. elevated troponin; no chest pain with no acute St-T changes on EKG- likely due to renal insufficiency. Bedside echo shows large tricuspid regurgitation with moderate to severe TR With noncompliance and multiple AMA discharges, Not a candidate for valve replacement until she can complete antibiotic therapy and demonstrate medical compliance by not leaving AMA. -Per ID patient, completed Ancef for MSSA on 08/14 -Continue Lasix 40 mg p.o.daily, monitor BMP. Sinus tachycardia - overall improved. -continue Lopressor 25 mg p.o. twice daily End-stage renal disease/hyponatremia/hyperkalemia- non oligurc- last HD was 09/09 -Patient came with outside hospital dialysis access in place. -Perm cath in place, nephrology following, appreciate assistance -Continue renal diet with fluid restriction 1.5L continue to monitor the renal function .- HD on hold - Nephrology ff Ascites- Recurrent- Secondary to severe renal injury and suspected CHF -Paracentesis 07/17 with 2.1L removed -paracentesis 08/11 with 2.8 L. -paracentesis 08/29. -paracentesis on 09/08. -continue dialysis for volume management. Paracentesis as needed. - abdomen more enlarged not tense today but still soft- no pain complains monitor- has not had HD-last HD 09/09 -repeat US- 09/15- no significant ascites - continue to monitor abdominal girth elevated troponin- likely due to renal failure -chest pain free and no acute St-T changes on EKG IV drug dependence -prn oxycodone to prevent withdrawal -Counseling given. Thrombocytopenia- improved. -Stopped heparin, patient has been refusing. Depressed, likely situational Anxious -Psych attempted to evaluate 08/21, patient refused to speak to them. -Re-evaluated on 08/23 and provided psychosocial education and support for her anxiety and depression. -Continue Xanax 0.25 mg p.o. every 8 as needed for anxiety- -decrease to 0.125 mg po q 8 prn today 09/16 -Continue Prozac DVT Prophylaxis: SCDs Increase activity- deconditioning per CM= no insurance for Oxygen evaluated by palliative care. Discharge plan Pending improvement and clearance from consultants. Patient needs oxygen at home however no insurance. Difficult discharge (2) Endocarditis Qualifiers: Endocarditis type: infective Infective endocarditis organism: bacterial Chronicity: acute Qualified Code(s): I33.0 - Acute and subacute infective endocarditis (5) Ascites Qualifiers: Ascites type: other type Qualified Code(s): R18.8 - Other ascites
[2018-09-21] MEDS: Sodium Chloride 0.9% 2 ML Flush BID IV.FLUSH SCH ×2 (18:10→20:47)
[2018-09-21] MEDS: QUEtiapine 25 MG Tablet PO SCH (20:47)
[2018-09-22 06:32] LABS: Calcium 8.8 mg/dL (8.5-10.1); Carbon Dioxide 24.2 meq/L (21.0-32.0); Phosphorus 2.1 mg/dL (2.5-4.9); Potassium 5.1 meq/L (3.5-5.1)
[2018-09-22] MEDS: Furosemide 40 MG Tablet PO SCH (08:49)
[2018-09-22] MEDS: ALPRAZolam 0.25 MG Tablet PO PRN ×2 (08:50→17:24)
[2018-09-22] MEDS: Famotidine 20 MG Tablet PO SCH ×2 (08:50→21:47)
[2018-09-22] MEDS: FLUoxetine 10 MG Capsule PO SCH (08:51)
[2018-09-22] MEDS: Metoprolol Tartrate 25 MG Tablet PO SCH ×2 (08:52→21:48)
[2018-09-22] MEDS: Sodium Chloride 0.9% 2 ML Flush BID IV.FLUSH SCH ×2 (08:52→21:48)
--- NOTE | 2018-09-22 10:38 | P.PN ---
Subjective Interval history: Vital signs stable. No events overnight. Continue the same management Physical Exam Vital signs: Vital Signs 09/21/18 11:01 09/21/18 12:00 09/21/18 15:11 Temperature 98.4 F Pulse Rate 65 Respiratory Rate 18 17 18 Blood Pressure 109/74 Pulse Oximetry 94 L 09/21/18 16:00 09/21/18 20:00 09/21/18 20:34 Temperature 97.4 F L 98 F Pulse Rate 70 71 Respiratory Rate 18 18 Blood Pressure 117/81 113/75 Pulse Oximetry 96 97 98 09/22/18 00:00 09/22/18 08:00 09/22/18 09:05 Temperature 97.8 F 98.3 F Pulse Rate 72 74 Respiratory Rate 18 18 Blood Pressure 103/74 107/67 Pulse Oximetry 93 L 94 L 93 L Intake & Output 09/21/18 09/22/18 09/22/18 18:59 06:59 18:59 Intake Total 5000 / 5000 480 / 480 Output Total 150 / 150 Balance 4850 / 4850 480 / 480 Weight 58.3 kg Intake: Oral 5000 / 5000 480 / 480 Output: Urine 150 / 150 Other: # Voids 6 3 Date of Last Bowel Movement 09/20/18 09/21/18 # Bowel Movements 4 Narrative: GENERAL: 28-year-old female, appears in NAD. SKIN: Warm and dry. Right upper chest permacath in place CARDIOVASCULAR: Regular rate and rhythm. Positive murmur RESPIRATORY: Lung sounds diminished. GASTROINTESTINAL: Abdomen soft, non-tender, mildly distended. MUSCULOSKELETAL: Extremities without clubbing, cyanosis. No obvious deformities. no edema Results - Labs CBC & Chem 7: 09/19/18 06:00 09/22/18 05:54 Laboratory Results - last 24 hr 09/21/18 09/22/18 11:02 05:54 Sodium 133 L 133 L Potassium 4.9 5.1 Chloride 100 100 Carbon Dioxide 27.9 24.2 Anion Gap 5 9 BUN 74 H 73 H Creatinine 3.48 H 3.17 H Estimated GFR 16 L 17 L Random Glucose 85 75 Calcium 8.3 L 8.8 Phosphorus 2.3 L 2.1 L Albumin 2.0 L 2.0 L Assessment and Plan - Assessment (1) IV drug abuse Code(s): F19.10 - Other psychoactive substance abuse, uncomplicated Status: Acute (2) Endocarditis Code(s): I38 - Endocarditis, valve unspecified Status: Acute (3) Sepsis Code(s): A41.9 - Sepsis, unspecified organism Status: Resolved (4) End-stage renal disease (ESRD) Code(s): N18.6 - End stage renal disease Status: Acute (5) Ascites Code(s): R18.8 - Other ascites Status: Acute (6) Acute kidney injury Code(s): N17.9 - Acute kidney failure, unspecified Status: Acute - Plan 28-year-old female with infective tricuspid valve endocarditis and multiorgan dysfunction secondary to endocarditis. Remains in heart failure and volume overload, and associated organ failure, including severe renal failure requiring renal replacement therapy. continue to daily pull fluid by HD. Broad spectrum abx. overall prognosis is quite poor given history of leaving AMA. Completed treatment for urinary cisco. Completed ~6 week regimen of IV ancef for MSSA bacteremia on 08/14. Infective tricuspid valve endocarditis Moderate tricuspid valve regurgitation Mixed septic and cardiogenic shock secondary to infective endocarditis- resolving. elevated troponin; no chest pain with no acute St-T changes on EKG- likely due to renal insufficiency. Bedside echo shows large tricuspid regurgitation with moderate to severe TR With noncompliance and multiple AMA discharges, Not a candidate for valve replacement until she can complete antibiotic therapy and demonstrate medical compliance by not leaving AMA. -Per ID patient, completed Ancef for MSSA on 08/14 -Continue Lasix 40 mg p.o.daily, monitor BMP. Sinus tachycardia - overall improved. -continue Lopressor 25 mg p.o. twice daily End-stage renal disease/hyponatremia/hyperkalemia- non oligurc- last HD was 09/09 -Patient came with outside hospital dialysis access in place. -Perm cath in place, nephrology following, appreciate assistance -Continue renal diet with fluid restriction 1.5L continue to monitor the renal function .- HD on hold - Nephrology ff Ascites- Recurrent- Secondary to severe renal injury and suspected CHF -Paracentesis 07/17 with 2.1L removed -paracentesis 08/11 with 2.8 L. -paracentesis 08/29. -paracentesis on 09/08. -continue dialysis for volume management. Paracentesis as needed. - abdomen more enlarged not tense today but still soft- no pain complains monitor- has not had HD-last HD 09/09 -repeat US- 09/15- no significant ascites - continue to monitor abdominal girth elevated troponin- likely due to renal failure -chest pain free and no acute St-T changes on EKG IV drug dependence -prn oxycodone to prevent withdrawal -Counseling given. Thrombocytopenia- improved. -Stopped heparin, patient has been refusing. Depressed, likely situational Anxious -Psych attempted to evaluate 08/21, patient refused to speak to them. -Re-evaluated on 08/23 and provided psychosocial education and support for her anxiety and depression. -Continue Xanax 0.25 mg p.o. every 8 as needed for anxiety- -decrease to 0.125 mg po q 8 prn today 09/16 -Continue Prozac DVT Prophylaxis: SCDs Increase activity- deconditioning per CM= no insurance for Oxygen evaluated by palliative care. Discharge plan Pending improvement and clearance from consultants. Patient needs oxygen at home however no insurance. Difficult discharge (2) Endocarditis Qualifiers: Endocarditis type: infective Infective endocarditis organism: bacterial Chronicity: acute Qualified Code(s): I33.0 - Acute and subacute infective endocarditis (5) Ascites Qualifiers: Ascites type: other type Qualified Code(s): R18.8 - Other ascites
--- NOTE | 2018-09-22 20:43 | P.PNNP ---
Subjective Interval history: Patient seen in the afternoon, alert, no complaint. Physical Exam Vital signs: Vital Signs 09/22/18 00:00 09/22/18 08:00 09/22/18 09:05 Temperature 97.8 F 98.3 F Pulse Rate 72 74 Respiratory Rate 18 18 Blood Pressure 103/74 107/67 Pulse Oximetry 93 L 94 L 93 L 09/22/18 12:00 09/22/18 16:00 Temperature 98.6 F 97.9 F Pulse Rate 70 83 Respiratory Rate 18 18 Blood Pressure 99/58 L 114/78 Pulse Oximetry 96 92 L Intake & Output 09/22/18 09/22/18 09/23/18 06:59 18:59 06:59 Intake Total 480 / 480 720 / 720 Balance 480 / 480 720 / 720 Weight 58.3 kg Intake: Oral 480 / 480 720 / 720 Other: # Voids 3 4 Date of Last Bowel Movement 09/22/18 # Bowel Movements 1 Narrative: GENERAL: 28-year-old female, appears in NAD. SKIN: Warm and dry. Right upper chest permacath in place CARDIOVASCULAR: Regular rate and rhythm. Positive murmur RESPIRATORY: Lung sounds diminished. GASTROINTESTINAL: Abdomen soft, non-tender, mildly distended. MUSCULOSKELETAL: Extremities without clubbing, cyanosis. No obvious deformities. no edema Assessment and Plan - Assessment (1) Acute kidney injury Code(s): N17.9 - Acute kidney failure, unspecified Status: Acute Plan: Patient with acute kidney injury, Continue to hold HD, Creatinine is slightly better. If continue to improve, will remove PermCath. (2) Endocarditis Code(s): I38 - Endocarditis, valve unspecified Status: Acute Qualifiers: Endocarditis type: infective Infective endocarditis organism: bacterial Chronicity: acute Qualified Code(s): I33.0 - Acute and subacute infective endocarditis Plan: Antibiotics completed.
[2018-09-22] MEDS: QUEtiapine 25 MG Tablet PO SCH (21:47)
[2018-09-23] MEDS: ALPRAZolam 0.25 MG Tablet PO PRN ×2 (07:05→15:12)
[2018-09-23] MEDS: Furosemide 40 MG Tablet PO SCH (09:14)
[2018-09-23] MEDS: Famotidine 20 MG Tablet PO SCH ×2 (09:14→21:15)
[2018-09-23] MEDS: FLUoxetine 10 MG Capsule PO SCH (09:15)
[2018-09-23] MEDS: Sodium Chloride 0.9% 2 ML Flush BID IV.FLUSH SCH ×2 (09:15→21:15)
[2018-09-23] MEDS: Metoprolol Tartrate 25 MG Tablet PO SCH ×2 (09:15→21:20)
--- NOTE | 2018-09-23 11:53 | P.PNNP ---
Subjective Interval history: Patient seen in AM, no SOB, eating well, not in distress. Physical Exam Vital signs: Vital Signs 09/22/18 12:00 09/22/18 16:00 09/22/18 19:58 Temperature 98.6 F 97.9 F Pulse Rate 70 83 Respiratory Rate 18 18 Blood Pressure 99/58 L 114/78 Pulse Oximetry 96 92 L 98 09/22/18 20:00 09/23/18 00:00 09/23/18 08:00 Temperature 98.0 F 97.3 F L 98.1 F Pulse Rate 79 75 77 Respiratory Rate 18 18 17 Blood Pressure 120/74 109/73 116/70 Pulse Oximetry 97 93 L 97 Intake & Output 09/22/18 09/23/18 09/23/18 18:59 06:59 18:59 Intake Total 720 / 720 Output Total 0 / 0 Balance 720 / 720 0 / 0 Weight 61.2 kg Intake: Oral 720 / 720 Output: Urine 0 / 0 Other: # Voids 4 Date of Last Bowel Movement 09/22/18 09/22/18 # Bowel Movements 1 Narrative: GENERAL: 28-year-old female, appears in NAD. SKIN: Warm and dry. Right upper chest permacath in place CARDIOVASCULAR: Regular rate and rhythm. Positive murmur RESPIRATORY: Lung sounds diminished. GASTROINTESTINAL: Abdomen soft, non-tender, mildly distended. MUSCULOSKELETAL: Extremities without clubbing, cyanosis. No obvious deformities. no edema Assessment and Plan - Assessment (1) Acute kidney injury Code(s): N17.9 - Acute kidney failure, unspecified Status: Acute Plan: Patient seen and examined, agree with above. Creatinine is stable, continue to hold HD. (2) Endocarditis Code(s): I38 - Endocarditis, valve unspecified Status: Acute Qualifiers: Endocarditis type: infective Infective endocarditis organism: bacterial Chronicity: acute Qualified Code(s): I33.0 - Acute and subacute infective endocarditis Plan: Antibiotics completed. - Plan Patient with sepsis, bacteremia and develop TED. Non oliguric, Creatinine slightly better yesterday 3.1. Continue to hold HD for now. If Creatinine continue to improve, will D/C Vascath.
--- NOTE | 2018-09-23 16:43 | P.PN ---
Subjective Interval history: Patient is in bed appears in not acute distress at this time. Sleepy. Saturating well on oxygen. No complaints at this time. Physical Exam Vital signs: Vital Signs 09/22/18 19:58 09/22/18 20:00 09/23/18 00:00 Temperature 98.0 F 97.3 F L Pulse Rate 79 75 Respiratory Rate 18 18 Blood Pressure 120/74 109/73 Pulse Oximetry 98 97 93 L 09/23/18 08:00 09/23/18 12:00 Temperature 98.1 F 97.2 F L Pulse Rate 77 69 Respiratory Rate 17 17 Blood Pressure 116/70 118/76 Pulse Oximetry 97 96 Intake & Output 09/22/18 09/23/18 09/23/18 18:59 06:59 18:59 Intake Total 720 / 720 Output Total 0 / 0 Balance 720 / 720 0 / 0 Weight 61.2 kg Intake: Oral 720 / 720 Output: Urine 0 / 0 Other: # Voids 4 Date of Last Bowel Movement 09/22/18 09/22/18 # Bowel Movements 1 Narrative: GENERAL: 28-year-old female, appears in NAD. SKIN: Warm and dry. Right upper chest permacath in place CARDIOVASCULAR: Regular rate and rhythm. Positive murmur RESPIRATORY: Lung sounds diminished. GASTROINTESTINAL: Abdomen soft, non-tender, mildly distended. MUSCULOSKELETAL: Extremities without clubbing, cyanosis. No obvious deformities. no edema Results - Labs CBC & Chem 7: 09/19/18 06:00 09/22/18 05:54 Assessment and Plan - Assessment (1) IV drug abuse Code(s): F19.10 - Other psychoactive substance abuse, uncomplicated Status: Acute (2) Endocarditis Code(s): I38 - Endocarditis, valve unspecified Status: Acute (3) Sepsis Code(s): A41.9 - Sepsis, unspecified organism Status: Resolved (4) End-stage renal disease (ESRD) Code(s): N18.6 - End stage renal disease Status: Acute (5) Ascites Code(s): R18.8 - Other ascites Status: Acute (6) Acute kidney injury Code(s): N17.9 - Acute kidney failure, unspecified Status: Acute - Plan 28-year-old female with infective tricuspid valve endocarditis and multiorgan dysfunction secondary to endocarditis. Remains in heart failure and volume overload, and associated organ failure, including severe renal failure requiring renal replacement therapy. continue to daily pull fluid by HD. Broad spectrum abx. overall prognosis is quite poor given history of leaving AMA. Completed treatment for urinary cisco. Completed ~6 week regimen of IV ancef for MSSA bacteremia on 08/14. Infective tricuspid valve endocarditis Moderate tricuspid valve regurgitation Mixed septic and cardiogenic shock secondary to infective endocarditis- resolving. elevated troponin; no chest pain with no acute St-T changes on EKG- likely due to renal insufficiency. Bedside echo shows large tricuspid regurgitation with moderate to severe TR With noncompliance and multiple AMA discharges, Not a candidate for valve replacement until she can complete antibiotic therapy and demonstrate medical compliance by not leaving AMA. -Per ID patient, completed Ancef for MSSA on 08/14 -Continue Lasix 40 mg p.o.daily, monitor BMP. Sinus tachycardia - overall improved. -continue Lopressor 25 mg p.o. twice daily End-stage renal disease/hyponatremia/hyperkalemia- non oligurc- last HD was 09/09 -Patient came with outside hospital dialysis access in place. -Perm cath in place, nephrology following, appreciate assistance -Continue renal diet with fluid restriction 1.5L continue to monitor the renal function .- HD on hold - Nephrology ff Ascites- Recurrent- Secondary to severe renal injury and suspected CHF -Paracentesis 07/17 with 2.1L removed -paracentesis 08/11 with 2.8 L. -paracentesis 08/29. -paracentesis on 09/08. -continue dialysis for volume management. Paracentesis as needed. - abdomen more enlarged not tense today but still soft- no pain complains monitor- has not had HD-last HD 09/09 -repeat US- 09/15- no significant ascites - continue to monitor abdominal girth elevated troponin- likely due to renal failure -chest pain free and no acute St-T changes on EKG IV drug dependence -prn oxycodone to prevent withdrawal -Counseling given. Thrombocytopenia- improved. -Stopped heparin, patient has been refusing. Depressed, likely situational Anxious -Psych attempted to evaluate 08/21, patient refused to speak to them. -Re-evaluated on 08/23 and provided psychosocial education and support for her anxiety and depression. -Continue Xanax 0.25 mg p.o. every 8 as needed for anxiety- -decrease to 0.125 mg po q 8 prn today 09/16 -Continue Prozac DVT Prophylaxis: SCDs Increase activity- deconditioning per CM= no insurance for Oxygen evaluated by palliative care. Discharge plan Pending improvement and clearance from consultants. Patient needs oxygen at home however no insurance. Difficult discharge (2) Endocarditis Qualifiers: Endocarditis type: infective Infective endocarditis organism: bacterial Chronicity: acute Qualified Code(s): I33.0 - Acute and subacute infective endocarditis (5) Ascites Qualifiers: Ascites type: other type Qualified Code(s): R18.8 - Other ascites
[2018-09-23] MEDS: QUEtiapine 25 MG Tablet PO SCH (21:15)
[2018-09-24] MEDS: ALPRAZolam 0.25 MG Tablet PO PRN ×2 (03:54→16:39)
[2018-09-24] MEDS: FLUoxetine 10 MG Capsule PO SCH (09:38)
[2018-09-24] MEDS: Famotidine 20 MG Tablet PO SCH ×2 (09:39→20:11)
--- NOTE | 2018-09-24 09:52 | P.PN ---
Subjective Interval history: In bed appears in not acute distress at this time. Requiring oxygen. No shortness of breath. Denies cough. No fever or chills. No urinary complaints. Physical Exam Vital signs: Vital Signs 09/23/18 12:00 09/23/18 16:00 09/23/18 20:00 Temperature 97.2 F L 97.6 F 97.7 F Pulse Rate 69 80 83 Respiratory Rate 17 18 18 Blood Pressure 118/76 118/87 128/92 H Pulse Oximetry 96 96 99 09/23/18 21:25 09/24/18 00:00 09/24/18 08:00 Temperature 98.4 F 97.8 F Pulse Rate 79 84 Respiratory Rate 18 18 Blood Pressure 108/68 110/71 Pulse Oximetry 94 L 92 L 99 Intake & Output 09/23/18 09/24/18 09/24/18 18:59 06:59 18:59 Intake Total 6000 / 6000 Output Total 500 / 500 Balance 6000 / 6000 -500 / -500 Weight 59.8 kg Intake: Oral 6000 / 6000 Output: Urine 500 / 500 Other: # Voids 4 Date of Last Bowel Movement 09/23/18 # Bowel Movements 1 Narrative: GENERAL: 28-year-old female, appears in NAD. SKIN: Warm and dry. Right upper chest permacath in place CARDIOVASCULAR: Regular rate and rhythm. Positive murmur RESPIRATORY: Lung sounds diminished. GASTROINTESTINAL: Abdomen soft, non-tender, mildly distended. MUSCULOSKELETAL: Extremities without clubbing, cyanosis. No obvious deformities. no edema Results - Labs CBC & Chem 7: 09/19/18 06:00 09/22/18 05:54 Assessment and Plan - Assessment (1) IV drug abuse Code(s): F19.10 - Other psychoactive substance abuse, uncomplicated Status: Acute (2) Endocarditis Code(s): I38 - Endocarditis, valve unspecified Status: Acute (3) Sepsis Code(s): A41.9 - Sepsis, unspecified organism Status: Resolved (4) End-stage renal disease (ESRD) Code(s): N18.6 - End stage renal disease Status: Acute (5) Ascites Code(s): R18.8 - Other ascites Status: Acute (6) Acute kidney injury Code(s): N17.9 - Acute kidney failure, unspecified Status: Acute - Plan 28-year-old female with infective tricuspid valve endocarditis and multiorgan dysfunction secondary to endocarditis. Remains in heart failure and volume overload, and associated organ failure, including severe renal failure requiring renal replacement therapy. continue to daily pull fluid by HD. Broad spectrum abx. overall prognosis is quite poor given history of leaving AMA. Completed treatment for urinary cisco. Completed ~6 week regimen of IV ancef for MSSA bacteremia on 08/14. Infective tricuspid valve endocarditis Moderate tricuspid valve regurgitation Mixed septic and cardiogenic shock secondary to infective endocarditis- resolving. elevated troponin; no chest pain with no acute St-T changes on EKG- likely due to renal insufficiency. Bedside echo shows large tricuspid regurgitation with moderate to severe TR With noncompliance and multiple AMA discharges, Not a candidate for valve replacement until she can complete antibiotic therapy and demonstrate medical compliance by not leaving AMA. -Per ID patient, completed Ancef for MSSA on 08/14 -Continue Lasix 40 mg p.o.daily, monitor BMP. Sinus tachycardia - overall improved. -continue Lopressor 25 mg p.o. twice daily End-stage renal disease/hyponatremia/hyperkalemia- non oligurc- last HD was 09/09 -Patient came with outside hospital dialysis access in place. -Perm cath in place, nephrology following, appreciate assistance -Continue renal diet with fluid restriction 1.5L continue to monitor the renal function .- HD on hold - Nephrology ff Ascites- Recurrent- Secondary to severe renal injury and suspected CHF -Paracentesis 07/17 with 2.1L removed -paracentesis 08/11 with 2.8 L. -paracentesis 08/29. -paracentesis on 09/08. -continue dialysis for volume management. Paracentesis as needed. - abdomen more enlarged not tense today but still soft- no pain complains monitor- has not had HD-last HD 09/09 -repeat US- 09/15- no significant ascites - continue to monitor abdominal girth elevated troponin- likely due to renal failure -chest pain free and no acute St-T changes on EKG IV drug dependence -prn oxycodone to prevent withdrawal -Counseling given. Thrombocytopenia- improved. -Stopped heparin, patient has been refusing. Depressed, likely situational Anxious -Psych attempted to evaluate 08/21, patient refused to speak to them. -Re-evaluated on 08/23 and provided psychosocial education and support for her anxiety and depression. -Continue Xanax 0.25 mg p.o. every 8 as needed for anxiety- -decrease to 0.125 mg po q 8 prn today 09/16 -Continue Prozac DVT Prophylaxis: SCDs Increase activity- deconditioning per CM= no insurance for Oxygen evaluated by palliative care. Discharge plan Pending improvement and clearance from consultants. Patient needs oxygen at home however no insurance. Difficult discharge (2) Endocarditis Qualifiers: Endocarditis type: infective Infective endocarditis organism: bacterial Chronicity: acute Qualified Code(s): I33.0 - Acute and subacute infective endocarditis (5) Ascites Qualifiers: Ascites type: other type Qualified Code(s): R18.8 - Other ascites
--- NOTE | 2018-09-24 13:09 | P.PNNP ---
Subjective Interval history: Patient is doing okay denies any dysuria or burning Physical Exam Vital signs: Vital Signs 09/23/18 16:00 09/23/18 20:00 09/23/18 21:25 Temperature 97.6 F 97.7 F Pulse Rate 80 83 Respiratory Rate 18 18 Blood Pressure 118/87 128/92 H Pulse Oximetry 96 99 94 L 09/24/18 00:00 09/24/18 08:00 09/24/18 12:00 Temperature 98.4 F 97.8 F 98.0 F Pulse Rate 79 84 80 Respiratory Rate 18 16 18 Blood Pressure 108/68 110/71 115/74 Pulse Oximetry 92 L 99 96 Intake & Output 09/23/18 09/24/18 09/24/18 18:59 06:59 18:59 Intake Total 6000 / 6000 Output Total 500 / 500 Balance 6000 / 6000 -500 / -500 Weight 59.8 kg Intake: Oral 6000 / 6000 Output: Urine 500 / 500 Other: # Voids 4 Date of Last Bowel Movement 09/23/18 09/23/18 # Bowel Movements 1 Narrative: GENERAL: 28-year-old female, appears in NAD. SKIN: Warm and dry. Right upper chest permacath in place CARDIOVASCULAR: Regular rate and rhythm. Positive murmur RESPIRATORY: Lung sounds diminished. GASTROINTESTINAL: Abdomen soft, non-tender, mildly distended. MUSCULOSKELETAL: Extremities without clubbing, cyanosis. No obvious deformities. no edema Assessment and Plan - Assessment (1) Acute kidney injury Code(s): N17.9 - Acute kidney failure, unspecified Status: Acute Plan: Last creatinine was 3.1 she is off hemodialysis continue to monitor BMP Creatinine is stable, continue to hold HD. (2) Endocarditis Code(s): I38 - Endocarditis, valve unspecified Status: Acute Qualifiers: Endocarditis type: infective Infective endocarditis organism: bacterial Chronicity: acute Qualified Code(s): I33.0 - Acute and subacute infective endocarditis Plan: Antibiotics completed. - Plan Patient with sepsis, bacteremia and develop TED. Non oliguric, Creatinine slightly better yesterday 3.1. Continue to hold HD for now. If Creatinine continue to improve, will D/C Vascath.
[2018-09-24] MEDS: Metoprolol Tartrate 25 MG Tablet PO SCH ×2 (19:34→20:10)
[2018-09-24] MEDS: Furosemide 40 MG Tablet PO SCH (19:34)
[2018-09-24] MEDS: Sodium Chloride 0.9% 2 ML Flush BID IV.FLUSH SCH ×2 (19:34→20:11)
[2018-09-24] MEDS: QUEtiapine 25 MG Tablet PO SCH (20:10)
[2018-09-24] MEDS: Melatonin 5 MG Tablet PO PRN (20:10)
[2018-09-25] MEDS: ALPRAZolam 0.25 MG Tablet PO PRN ×2 (04:57→13:56)
[2018-09-25 07:32] LABS: Calcium 8.5 mg/dL (8.5-10.1); Carbon Dioxide 23.5 meq/L (21.0-32.0); Potassium 5.1 meq/L (3.5-5.1)
[2018-09-25] MEDS: Famotidine 20 MG Tablet PO SCH ×2 (08:45→20:42)
[2018-09-25] MEDS: FLUoxetine 10 MG Capsule PO SCH (08:45)
[2018-09-25] MEDS: Sodium Chloride 0.9% 2 ML Flush BID IV.FLUSH SCH ×2 (08:46→20:43)
[2018-09-25] MEDS: Metoprolol Tartrate 25 MG Tablet PO SCH ×2 (08:46→20:42)
[2018-09-25] MEDS: Furosemide 40 MG Tablet PO SCH (08:46)
--- NOTE | 2018-09-25 13:21 | P.PN ---
Subjective Interval history: The patient is in bed she appears chronically ill however in not acute distress at this time. Still requiring oxygen. No nausea or vomiting. Physical Exam Vital signs: Vital Signs 09/24/18 16:00 09/24/18 18:10 09/24/18 20:00 Temperature 98.9 F 98.7 F Pulse Rate 85 85 Respiratory Rate 18 20 Blood Pressure 118/79 124/81 Pulse Oximetry 94 L 96 98 09/24/18 23:28 09/25/18 00:00 09/25/18 07:16 Temperature 98.5 F Pulse Rate 74 Respiratory Rate 20 20 20 Blood Pressure 114/72 Pulse Oximetry 97 09/25/18 08:00 Temperature 97.6 F Pulse Rate 79 Respiratory Rate 18 Blood Pressure 113/77 Pulse Oximetry 98 Intake & Output 09/24/18 09/25/18 09/25/18 18:59 06:59 18:59 Intake Total 2200 / 2200 120 / 120 Balance 2200 / 2200 120 / 120 Weight 59.1 kg Intake: Oral 2200 / 2200 120 / 120 Other: # Voids 1 Date of Last Bowel Movement 09/23/18 Narrative: GENERAL: 28-year-old female, appears in NAD. SKIN: Warm and dry. Right upper chest permacath in place CARDIOVASCULAR: Regular rate and rhythm. Positive murmur RESPIRATORY: Lung sounds diminished. GASTROINTESTINAL: Abdomen soft, non-tender, mildly distended. MUSCULOSKELETAL: Extremities without clubbing, cyanosis. No obvious deformities. no edema Results - Labs CBC & Chem 7: 09/19/18 06:00 09/25/18 06:32 Laboratory Results - last 24 hr 09/25/18 06:32 Sodium 133 L Potassium 5.1 Chloride 102 Carbon Dioxide 23.5 Anion Gap 8 BUN 68 H Creatinine 3.13 H Estimated GFR 18 L Random Glucose 115 H Calcium 8.5 Assessment and Plan - Assessment (1) IV drug abuse Code(s): F19.10 - Other psychoactive substance abuse, uncomplicated Status: Acute (2) Endocarditis Code(s): I38 - Endocarditis, valve unspecified Status: Acute (3) Sepsis Code(s): A41.9 - Sepsis, unspecified organism Status: Resolved (4) End-stage renal disease (ESRD) Code(s): N18.6 - End stage renal disease Status: Acute (5) Ascites Code(s): R18.8 - Other ascites Status: Acute (6) Acute kidney injury Code(s): N17.9 - Acute kidney failure, unspecified Status: Acute - Plan 28-year-old female with infective tricuspid valve endocarditis and multiorgan dysfunction secondary to endocarditis. Remains in heart failure and volume overload, and associated organ failure, including severe renal failure requiring renal replacement therapy. continue to daily pull fluid by HD. Broad spectrum abx. overall prognosis is quite poor given history of leaving AMA. Completed treatment for urinary cisco. Completed ~6 week regimen of IV ancef for MSSA bacteremia on 08/14. Infective tricuspid valve endocarditis Moderate tricuspid valve regurgitation Mixed septic and cardiogenic shock secondary to infective endocarditis- resolving. elevated troponin; no chest pain with no acute St-T changes on EKG- likely due to renal insufficiency. Bedside echo shows large tricuspid regurgitation with moderate to severe TR With noncompliance and multiple AMA discharges, Not a candidate for valve replacement until she can complete antibiotic therapy and demonstrate medical compliance by not leaving AMA. -Per ID patient, completed Ancef for MSSA on 08/14 -Continue Lasix 40 mg p.o.daily, monitor BMP. Sinus tachycardia - overall improved. -continue Lopressor 25 mg p.o. twice daily End-stage renal disease/hyponatremia/hyperkalemia- non oligurc- last HD was 09/09 -Patient came with outside hospital dialysis access in place. -Perm cath in place, nephrology following, appreciate assistance -Continue renal diet with fluid restriction 1.5L continue to monitor the renal function .- HD on hold - Nephrology ff Ascites- Recurrent- Secondary to severe renal injury and suspected CHF -Paracentesis 07/17 with 2.1L removed -paracentesis 08/11 with 2.8 L. -paracentesis 08/29. -paracentesis on 09/08. -continue dialysis for volume management. Paracentesis as needed. - abdomen more enlarged not tense today but still soft- no pain complains monitor- has not had HD-last HD 09/09 -repeat US- 09/15- no significant ascites - continue to monitor abdominal girth elevated troponin- likely due to renal failure -chest pain free and no acute St-T changes on EKG IV drug dependence -prn oxycodone to prevent withdrawal -Counseling given. Thrombocytopenia- improved. -Stopped heparin, patient has been refusing. Depressed, likely situational Anxious -Psych attempted to evaluate 08/21, patient refused to speak to them. -Re-evaluated on 08/23 and provided psychosocial education and support for her anxiety and depression. -Continue Xanax 0.25 mg p.o. every 8 as needed for anxiety- -decrease to 0.125 mg po q 8 prn today 09/16 -Continue Prozac DVT Prophylaxis: SCDs Increase activity- deconditioning per CM= no insurance for Oxygen evaluated by palliative care. Discharge plan Pending improvement and clearance from consultants. Patient needs oxygen at home however no insurance. Difficult discharge (2) Endocarditis Qualifiers: Endocarditis type: infective Infective endocarditis organism: bacterial Chronicity: acute Qualified Code(s): I33.0 - Acute and subacute infective endocarditis (5) Ascites Qualifiers: Ascites type: other type Qualified Code(s): R18.8 - Other ascites
--- NOTE | 2018-09-25 16:09 | P.PNNP ---
Subjective Interval history: Patient involved same treated for endocarditis Physical Exam Vital signs: Vital Signs 09/24/18 18:10 09/24/18 20:00 09/24/18 23:28 Temperature 98.7 F Pulse Rate 85 Respiratory Rate 20 20 Blood Pressure 124/81 Pulse Oximetry 96 98 09/25/18 00:00 09/25/18 07:16 09/25/18 08:00 Temperature 98.5 F 97.6 F Pulse Rate 74 79 Respiratory Rate 20 20 18 Blood Pressure 114/72 113/77 Pulse Oximetry 97 98 09/25/18 09:20 Temperature Pulse Rate Respiratory Rate 18 Blood Pressure Pulse Oximetry Intake & Output 09/24/18 09/25/18 09/25/18 18:59 06:59 18:59 Intake Total 2200 / 2200 120 / 120 Balance 2200 / 2200 120 / 120 Weight 59.1 kg Intake: Oral 2200 / 2200 120 / 120 Other: # Voids 1 Date of Last Bowel Movement 09/23/18 Narrative: GENERAL: 28-year-old female, appears in NAD. SKIN: Warm and dry. Right upper chest permacath in place CARDIOVASCULAR: Regular rate and rhythm. Positive murmur RESPIRATORY: Lung sounds diminished. GASTROINTESTINAL: Abdomen soft, non-tender, mildly distended. MUSCULOSKELETAL: Extremities without clubbing, cyanosis. No obvious deformities. no edema Assessment and Plan - Assessment (1) Acute kidney injury Code(s): N17.9 - Acute kidney failure, unspecified Status: Acute Plan: Last creatinine was 3.1 she is off hemodialysis continue to monitor BMP Creatinine is stable, continue to hold HD. Dr. Monge to follow (2) Endocarditis Code(s): I38 - Endocarditis, valve unspecified Status: Acute Qualifiers: Endocarditis type: infective Infective endocarditis organism: bacterial Chronicity: acute Qualified Code(s): I33.0 - Acute and subacute infective endocarditis Plan: Antibiotics completed. - Plan Patient with sepsis, bacteremia and develop TED. Non oliguric, Creatinine slightly better yesterday 3.1. Continue to hold HD for now. If Creatinine continue to improve, will D/C Vascath.
[2018-09-25] MEDS: QUEtiapine 25 MG Tablet PO SCH (20:42)
[2018-09-26] MEDS: ALPRAZolam 0.25 MG Tablet PO PRN ×2 (04:41→14:40)
[2018-09-26 08:14] LABS: Calcium 8.8 mg/dL (8.5-10.1); Carbon Dioxide 22.1 meq/L (21.0-32.0); Potassium 5.5 meq/L (3.5-5.1)
--- NOTE | 2018-09-26 08:54 | P.PN ---
Subjective Interval history: The patient is at the margin of the bed appears in not acute distress. Still requiring oxygen. She does not feel short of breath. No fever or chills. Physical Exam Vital signs: Vital Signs 09/25/18 09:20 09/25/18 14:50 09/25/18 16:00 Temperature 97.6 F Pulse Rate 77 Respiratory Rate 18 16 18 Blood Pressure 114/74 Pulse Oximetry 100 09/25/18 17:56 09/25/18 20:00 09/25/18 21:22 Temperature 97.9 F Pulse Rate 83 Respiratory Rate 20 20 Blood Pressure 116/78 Pulse Oximetry 99 99 09/25/18 21:36 09/26/18 00:00 09/26/18 06:34 Temperature 98.7 F Pulse Rate 83 80 Respiratory Rate 20 16 8 L Blood Pressure 110/77 Pulse Oximetry 99 100 Intake & Output 09/25/18 09/26/18 09/26/18 18:59 06:59 18:59 Intake Total 1200 / 1200 472 / 472 Output Total 1000 / 1000 Balance 200 / 200 472 / 472 Weight 58.8 kg Intake: Oral 1200 / 1200 472 / 472 Output: Urine 1000 / 1000 Other: # Voids 1 # Bowel Movements 1 Narrative: GENERAL: 28-year-old female, appears in NAD. SKIN: Warm and dry. Right upper chest permacath in place CARDIOVASCULAR: Regular rate and rhythm. Positive murmur RESPIRATORY: Lung sounds diminished. GASTROINTESTINAL: Abdomen soft, non-tender, mildly distended. MUSCULOSKELETAL: Extremities without clubbing, cyanosis. No obvious deformities. no edema Results - Labs CBC & Chem 7: 09/19/18 06:00 09/26/18 07:10 Laboratory Results - last 24 hr 09/25/18 09/26/18 22:15 07:10 Sodium 131 L Potassium 5.5 H Chloride 99 Carbon Dioxide 22.1 Anion Gap 10 BUN 64 H Creatinine 3.25 H Estimated GFR 17 L Random Glucose 88 Calcium 8.8 Troponin I 0.02 Assessment and Plan - Assessment (1) IV drug abuse Code(s): F19.10 - Other psychoactive substance abuse, uncomplicated Status: Acute (2) Endocarditis Code(s): I38 - Endocarditis, valve unspecified Status: Acute (3) Sepsis Code(s): A41.9 - Sepsis, unspecified organism Status: Resolved (4) End-stage renal disease (ESRD) Code(s): N18.6 - End stage renal disease Status: Acute (5) Ascites Code(s): R18.8 - Other ascites Status: Acute (6) Acute kidney injury Code(s): N17.9 - Acute kidney failure, unspecified Status: Acute - Plan 28-year-old female with infective tricuspid valve endocarditis and multiorgan dysfunction secondary to endocarditis. Remains in heart failure and volume overload, and associated organ failure, including severe renal failure requiring renal replacement therapy. continue to daily pull fluid by HD. Broad spectrum abx. overall prognosis is quite poor given history of leaving AMA. Completed treatment for urinary cisco. Completed ~6 week regimen of IV ancef for MSSA bacteremia on 08/14. Infective tricuspid valve endocarditis Moderate tricuspid valve regurgitation Mixed septic and cardiogenic shock secondary to infective endocarditis- resolving. elevated troponin; no chest pain with no acute St-T changes on EKG- likely due to renal insufficiency. Bedside echo shows large tricuspid regurgitation with moderate to severe TR With noncompliance and multiple AMA discharges, Not a candidate for valve replacement until she can complete antibiotic therapy and demonstrate medical compliance by not leaving AMA. -Per ID patient, completed Ancef for MSSA on 08/14 -Continue Lasix 40 mg p.o.daily, monitor BMP. Sinus tachycardia - overall improved. -continue Lopressor 25 mg p.o. twice daily End-stage renal disease/hyponatremia/hyperkalemia- non oligurc- last HD was 09/09 -Patient came with outside hospital dialysis access in place. -Perm cath in place, nephrology following, appreciate assistance -Continue renal diet with fluid restriction 1.5L continue to monitor the renal function .- HD on hold - Nephrology ff Ascites- Recurrent- Secondary to severe renal injury and suspected CHF -Paracentesis 07/17 with 2.1L removed -paracentesis 08/11 with 2.8 L. -paracentesis 08/29. -paracentesis on 09/08. -continue dialysis for volume management. Paracentesis as needed. - abdomen more enlarged not tense today but still soft- no pain complains monitor- has not had HD-last HD 09/09 -repeat US- 09/15- no significant ascites - continue to monitor abdominal girth elevated troponin- likely due to renal failure -chest pain free and no acute St-T changes on EKG IV drug dependence -prn oxycodone to prevent withdrawal -Counseling given. Thrombocytopenia- improved. -Stopped heparin, patient has been refusing. Depressed, likely situational Anxious -Psych attempted to evaluate 08/21, patient refused to speak to them. -Re-evaluated on 08/23 and provided psychosocial education and support for her anxiety and depression. -Continue Xanax 0.25 mg p.o. every 8 as needed for anxiety- -decrease to 0.125 mg po q 8 prn today 09/16 -Continue Prozac DVT Prophylaxis: SCDs Increase activity- deconditioning per CM= no insurance for Oxygen evaluated by palliative care. Discharge plan Pending improvement and clearance from consultants. Patient needs oxygen at home however no insurance. Difficult discharge (2) Endocarditis Qualifiers: Endocarditis type: infective Infective endocarditis organism: bacterial Chronicity: acute Qualified Code(s): I33.0 - Acute and subacute infective endocarditis (5) Ascites Qualifiers: Ascites type: other type Qualified Code(s): R18.8 - Other ascites
[2018-09-26] MEDS: Metoprolol Tartrate 25 MG Tablet PO SCH ×2 (09:55→20:02)
[2018-09-26] MEDS: Famotidine 20 MG Tablet PO SCH ×2 (09:56→20:02)
[2018-09-26] MEDS: FLUoxetine 10 MG Capsule PO SCH (09:56)
[2018-09-26] MEDS: Furosemide 40 MG Tablet PO SCH (09:56)
[2018-09-26] MEDS: Sodium Chloride 0.9% 2 ML Flush BID IV.FLUSH SCH ×2 (09:57→20:02)
--- NOTE | 2018-09-26 16:19 | P.PNNP ---
Subjective Interval history: Resting in no acute distress. Creatinine at 3.25, potassium at 5.5. Denies any shortness of breath, nausea, or vomiting. <Debbie Godinez - Last Filed: 09/26/18 16:13> Physical Exam Vital signs: Vital Signs 09/25/18 17:56 09/25/18 20:00 09/25/18 21:22 Temperature 97.9 F Pulse Rate 83 Respiratory Rate 20 20 Blood Pressure 116/78 Pulse Oximetry 99 99 09/25/18 21:36 09/26/18 00:00 09/26/18 06:34 Temperature 98.7 F Pulse Rate 83 80 Respiratory Rate 20 16 8 L Blood Pressure 110/77 Pulse Oximetry 99 100 09/26/18 08:00 09/26/18 11:11 09/26/18 12:00 Temperature 97.7 F 98.2 F Pulse Rate 82 77 Respiratory Rate 17 17 Blood Pressure 109/74 118/75 Pulse Oximetry 96 96 98 Intake & Output 09/25/18 09/26/18 09/26/18 18:59 06:59 18:59 Intake Total 1200 / 1200 472 / 472 Output Total 1000 / 1000 Balance 200 / 200 472 / 472 Weight 58.8 kg Intake: Oral 1200 / 1200 472 / 472 Output: Urine 1000 / 1000 Other: # Voids 1 Date of Last Bowel Movement 09/23/18 # Bowel Movements 1 Narrative: GENERAL: 28-year-old female, appears in NAD. SKIN: Warm and dry. Right upper chest permacath in place CARDIOVASCULAR: Regular rate and rhythm. Positive murmur RESPIRATORY: Lung sounds diminished. GASTROINTESTINAL: Abdomen soft, non-tender, mildly distended. MUSCULOSKELETAL: Extremities without clubbing, cyanosis. No obvious deformities. no edema <Debbie Godinez - Last Filed: 09/26/18 16:13> Vital signs: Vital Signs 09/28/18 00:00 09/28/18 03:50 09/28/18 08:00 Temperature 98 F 98.8 F Pulse Rate 72 80 78 Respiratory Rate 17 19 19 Blood Pressure 96/61 L 114/84 111/69 Pulse Oximetry 94 L 92 L 94 L 09/28/18 11:25 09/28/18 12:00 09/28/18 16:00 Temperature 97.6 F 98.0 F Pulse Rate 76 81 Respiratory Rate 18 19 Blood Pressure 112/71 113/74 Pulse Oximetry 94 L 94 L 97 Intake & Output 09/28/18 09/28/18 09/29/18 06:59 18:59 06:59 Intake Total 240 / 240 900 / 900 Output Total 750 / 750 Balance 240 / 240 150 / 150 Weight 58.4 kg Intake: Oral 240 / 240 900 / 900 Output: Urine 750 / 750 Other: # Voids 1 Date of Last Bowel Movement 09/27/18 09/27/18 # Bowel Movements 1 <Bhargav Monge - Last Filed: 09/28/18 20:33> Assessment and Plan - Assessment (1) Acute kidney injury Code(s): N17.9 - Acute kidney failure, unspecified Status: Acute Plan: Acute kidney injury requiring hemodialysis. 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 Last HD on 09/08 Volume status stable. Continue lasix daily. Avoid nephrotoxins. Recommend to continue low potassium diet. Potassium level at 5.5, [place] ordered Creatinine at 3.25, non oliguric. Continue to hold HD (2) Endocarditis Code(s): I38 - Endocarditis, valve unspecified Status: Acute Qualifiers: Endocarditis type: infective Infective endocarditis organism: bacterial Chronicity: acute Qualified Code(s): I33.0 - Acute and subacute infective endocarditis Plan: Antibiotics completed. <Debbie Godinez - Last Filed: 09/26/18 16:13> - Assessment (1) Acute kidney injury Code(s): N17.9 - Acute kidney failure, unspecified Status: Acute Plan: Patient seen and examined, agree with above. HD has been on hold. Creatinine is almost same. Watch for renal recovery. (2) Endocarditis Code(s): I38 - Endocarditis, valve unspecified Status: Acute Qualifiers: Endocarditis type: infective Infective endocarditis organism: bacterial Chronicity: acute Qualified Code(s): I33.0 - Acute and subacute infective endocarditis <Bhargav Monge - Last Filed: 09/28/18 20:33>
[2018-09-26] MEDS: QUEtiapine 25 MG Tablet PO SCH (20:02)
[2018-09-27] MEDS: ALPRAZolam 0.25 MG Tablet PO PRN ×2 (03:38→14:14)
--- NOTE | 2018-09-27 06:47 | ECG ---
Date Performed: 09/25/2018 Time Performed: 21:59:39 PTAGE: 28 years EKG: Sinus rhythm LEFT POSTERIOR FASCICULAR BLOCK POSSIBLE ANTERIOR MYOCARDIAL INFARCTION , OF INDETERMINATE AGE PROBA BLE INFERIOR MYOCARDIAL INFARCTION , PROBABLY OLD ABNORMAL ECG PREVIOUS TRACING : 09/05/2018 19.05 Since the previous tracing, no significant change noted DOCTOR: Nelson Manriquez Interpretating Date/Time 09/27/2018 06:44:32
[2018-09-27 07:37] LABS: Calcium 8.7 mg/dL (8.5-10.1); Carbon Dioxide 22.3 meq/L (21.0-32.0); Potassium 5.2 meq/L (3.5-5.1)
[2018-09-27] MEDS: Furosemide 40 MG Tablet PO SCH (08:03)
[2018-09-27] MEDS: Famotidine 20 MG Tablet PO SCH ×3 (08:03→23:36)
[2018-09-27] MEDS: Metoprolol Tartrate 25 MG Tablet PO SCH ×3 (08:04→23:36)
[2018-09-27] MEDS: Sodium Chloride 0.9% 2 ML Flush BID IV.FLUSH SCH ×2 (08:04→23:36)
[2018-09-27] MEDS: FLUoxetine 10 MG Capsule PO SCH (08:08)
--- NOTE | 2018-09-27 16:48 | P.PNNP ---
Subjective Interval history: No acute events overnight. VSS and afebrile. Creatinine slightly improved at 3.03. <Debbie Godinez - Last Filed: 09/27/18 16:46> Physical Exam Vital signs: Vital Signs 09/26/18 20:00 09/27/18 00:00 09/27/18 08:00 Temperature 98.0 F 98.7 F 98.4 F Pulse Rate 84 80 75 Respiratory Rate 18 16 16 Blood Pressure 131/88 103/65 102/65 Pulse Oximetry 98 95 96 09/27/18 10:40 09/27/18 12:00 09/27/18 16:00 Temperature 98.0 F 98.3 F Pulse Rate 76 81 Respiratory Rate 16 16 Blood Pressure 110/70 118/80 Pulse Oximetry 93 L 93 L 97 Intake & Output 09/26/18 09/27/18 09/27/18 18:59 06:59 18:59 Intake Total 1600 / 1600 Output Total 1400 / 1400 Balance 200 / 200 Weight 58.9 kg Intake: Oral 1600 / 1600 Output: Urine 1400 / 1400 Other: # Voids 1 Date of Last Bowel Movement 09/23/18 09/26/18 09/26/18 # Bowel Movements 1 Narrative: GENERAL:Alert and oriented, appears in NAD. SKIN: Warm and dry. Right upper chest permacath in place CARDIOVASCULAR: Regular rate and rhythm. Positive murmur RESPIRATORY: Lung sounds diminished. GASTROINTESTINAL: Abdomen soft, non-tender, mildly distended. MUSCULOSKELETAL: Extremities without clubbing, cyanosis. No obvious deformities. no edema <Debbie Godinez - Last Filed: 09/27/18 16:46> Vital signs: Vital Signs 10/02/18 00:00 10/02/18 04:00 10/02/18 07:15 Temperature 98.6 F 98.5 F Pulse Rate 82 85 Respiratory Rate 15 17 18 Blood Pressure 107/72 122/89 Pulse Oximetry 99 94 L 10/02/18 08:00 10/02/18 12:00 10/02/18 16:00 Temperature 98.6 F 97.4 F L 98 F Pulse Rate 78 74 82 Respiratory Rate 20 18 18 Blood Pressure 113/69 114/69 138/92 H Pulse Oximetry 99 98 96 Intake & Output 10/02/18 10/02/18 10/03/18 06:59 18:59 06:59 Intake Total 720 / 720 1560 / 1560 Balance 720 / 720 1560 / 1560 Weight 55.7 kg Intake: Oral 720 / 720 1560 / 1560 Other: # Voids 3 8 Date of Last Bowel Movement 10/01/18 10/02/18 # Bowel Movements 2 <Bhargav Monge - Last Filed: 10/02/18 21:20> Assessment and Plan - Assessment (1) Acute kidney injury Code(s): N17.9 - Acute kidney failure, unspecified Status: Acute Plan: Acute kidney injury requiring hemodialysis. Patient had sepsis with hx of IVDA , developed ETD possibly from glomerulonephritis/septic emboli. Last HD on 09/08 Volume status stable. Continue lasix daily. Avoid nephrotoxins. Recommend to continue low potassium diet. Hyperkalemia resolved. Creatinine improved 3.03, non oliguric. Continue to hold HD If creatinine continues to improve will remove perma cath tomorrow Labs in AM (2) Endocarditis Code(s): I38 - Endocarditis, valve unspecified Status: Acute Qualifiers: Endocarditis type: infective Infective endocarditis organism: bacterial Chronicity: acute Qualified Code(s): I33.0 - Acute and subacute infective endocarditis Plan: Antibiotics completed. <Debbie Godinez - Last Filed: 09/27/18 16:46> - Assessment (1) Acute kidney injury Code(s): N17.9 - Acute kidney failure, unspecified Status: Acute Plan: Patient seen and examined, agree with above. Creatinine is slightly better, Encourage oral fluid, if continue to improve, will get PermCath removed. (2) Endocarditis Code(s): I38 - Endocarditis, valve unspecified Status: Acute Qualifiers: Endocarditis type: infective Infective endocarditis organism: bacterial Chronicity: acute Qualified Code(s): I33.0 - Acute and subacute infective endocarditis <Bhargav Monge - Last Filed: 10/02/18 21:20>
--- NOTE | 2018-09-27 19:38 | P.PN ---
Subjective Interval history: Does not appear in acute distress. No events overnight. She has no complaints at this time. Requiring oxygen on nasal cannula. Physical Exam Vital signs: Vital Signs 09/26/18 20:00 09/27/18 00:00 09/27/18 08:00 Temperature 98.0 F 98.7 F 98.4 F Pulse Rate 84 80 75 Respiratory Rate 18 16 16 Blood Pressure 131/88 103/65 102/65 Pulse Oximetry 98 95 96 09/27/18 10:40 09/27/18 12:00 09/27/18 16:00 Temperature 98.0 F 98.3 F Pulse Rate 76 81 Respiratory Rate 16 16 Blood Pressure 110/70 118/80 Pulse Oximetry 93 L 93 L 97 09/27/18 18:03 Temperature Pulse Rate Respiratory Rate Blood Pressure Pulse Oximetry 97 Intake & Output 09/27/18 09/27/18 09/28/18 06:59 18:59 06:59 Intake Total 600 / 600 Balance 600 / 600 Weight 58.9 kg Intake: Oral 600 / 600 Other: # Voids 1 3 Date of Last Bowel Movement 09/26/18 09/27/18 # Bowel Movements 1 Narrative: GENERAL: 28-year-old female, alert and oriented, appears in NAD. SKIN: Warm and dry. Right upper chest permacath in place CARDIOVASCULAR: Regular rate and rhythm. Positive murmur RESPIRATORY: Lung sounds diminished. GASTROINTESTINAL: Abdomen soft, non-tender, mildly distended. MUSCULOSKELETAL: Extremities without clubbing, cyanosis. No obvious deformities. no edema Results - Labs CBC & Chem 7: 09/19/18 06:00 09/27/18 05:56 Laboratory Results - last 24 hr 09/27/18 05:56 Sodium 130 L Potassium 5.2 H Chloride 100 Carbon Dioxide 22.3 Anion Gap 8 BUN 64 H Creatinine 3.03 H Estimated GFR 18 L Random Glucose 84 Calcium 8.7 Assessment and Plan - Assessment (1) IV drug abuse Code(s): F19.10 - Other psychoactive substance abuse, uncomplicated Status: Acute (2) Endocarditis Code(s): I38 - Endocarditis, valve unspecified Status: Acute (3) Sepsis Code(s): A41.9 - Sepsis, unspecified organism Status: Resolved (4) End-stage renal disease (ESRD) Code(s): N18.6 - End stage renal disease Status: Acute (5) Ascites Code(s): R18.8 - Other ascites Status: Acute (6) Acute kidney injury Code(s): N17.9 - Acute kidney failure, unspecified Status: Acute - Plan 28-year-old female with infective tricuspid valve endocarditis and multiorgan dysfunction secondary to endocarditis. Remains in heart failure and volume overload, and associated organ failure, including severe renal failure requiring renal replacement therapy. continue to daily pull fluid by HD. Broad spectrum abx. overall prognosis is quite poor given history of leaving AMA. Completed treatment for urinary cisco. Completed ~6 week regimen of IV ancef for MSSA bacteremia on 08/14. Infective tricuspid valve endocarditis Moderate tricuspid valve regurgitation Mixed septic and cardiogenic shock secondary to infective endocarditis- resolving. elevated troponin; no chest pain with no acute St-T changes on EKG- likely due to renal insufficiency. Bedside echo shows large tricuspid regurgitation with moderate to severe TR With noncompliance and multiple AMA discharges, Not a candidate for valve replacement until she can complete antibiotic therapy and demonstrate medical compliance by not leaving AMA. -Per ID patient, completed Ancef for MSSA on 08/14 -Continue Lasix 40 mg p.o.daily, monitor BMP. Sinus tachycardia - overall improved. -continue Lopressor 25 mg p.o. twice daily End-stage renal disease/hyponatremia/hyperkalemia- non oligurc- last HD was 09/09 -Patient came with outside hospital dialysis access in place. -Perm cath in place, nephrology following, appreciate assistance -Continue renal diet with fluid restriction 1.5L continue to monitor the renal function .- HD on hold - Nephrology ff Ascites- Recurrent- Secondary to severe renal injury and suspected CHF -Paracentesis 07/17 with 2.1L removed -paracentesis 08/11 with 2.8 L. -paracentesis 08/29. -paracentesis on 09/08. -continue dialysis for volume management. Paracentesis as needed. - abdomen more enlarged not tense today but still soft- no pain complains monitor- has not had HD-last HD 09/09 -repeat US- 09/15- no significant ascites - continue to monitor abdominal girth elevated troponin- likely due to renal failure -chest pain free and no acute St-T changes on EKG IV drug dependence -prn oxycodone to prevent withdrawal -Counseling given. Thrombocytopenia- improved. -Stopped heparin, patient has been refusing. Depressed, likely situational Anxious -Psych attempted to evaluate 08/21, patient refused to speak to them. -Re-evaluated on 08/23 and provided psychosocial education and support for her anxiety and depression. -Continue Xanax 0.25 mg p.o. every 8 as needed for anxiety- -decrease to 0.125 mg po q 8 prn today 09/16 -Continue Prozac DVT Prophylaxis: SCDs Increase activity- deconditioning per CM= no insurance for Oxygen evaluated by palliative care. Discharge plan Pending improvement and clearance from consultants. Patient needs oxygen at home however no insurance. Difficult discharge (2) Endocarditis Qualifiers: Endocarditis type: infective Infective endocarditis organism: bacterial Chronicity: acute Qualified Code(s): I33.0 - Acute and subacute infective endocarditis (5) Ascites Qualifiers: Ascites type: other type Qualified Code(s): R18.8 - Other ascites
[2018-09-27] MEDS: QUEtiapine 25 MG Tablet PO SCH ×2 (19:50→23:37)
[2018-09-28] MEDS: ALPRAZolam 0.25 MG Tablet PO PRN ×2 (04:24→20:10)
[2018-09-28] MEDS: Famotidine 20 MG Tablet PO SCH ×2 (08:37→20:10)
[2018-09-28] MEDS: FLUoxetine 10 MG Capsule PO SCH (08:37)
[2018-09-28] MEDS: Furosemide 40 MG Tablet PO SCH (08:37)
[2018-09-28] MEDS: Sodium Chloride 0.9% 2 ML Flush BID IV.FLUSH SCH ×2 (08:38→20:06)
[2018-09-28] MEDS: Metoprolol Tartrate 25 MG Tablet PO SCH ×2 (08:40→20:04)
--- NOTE | 2018-09-28 11:00 | P.PNNP ---
Subjective Interval history: Resting comfortably, no acute events overnight. Creatinine slightly higher at 3.12. <Debbie Godinez - Last Filed: 09/28/18 13:20> Physical Exam Vital signs: Vital Signs 09/27/18 12:00 09/27/18 16:00 09/27/18 18:03 Temperature 98.0 F 98.3 F Pulse Rate 76 81 Respiratory Rate 16 16 Blood Pressure 110/70 118/80 Pulse Oximetry 93 L 97 97 09/27/18 20:00 09/28/18 00:00 09/28/18 03:50 Temperature 97.9 F 98 F Pulse Rate 82 72 80 Respiratory Rate 16 17 19 Blood Pressure 116/68 96/61 L 114/84 Pulse Oximetry 98 94 L 92 L 09/28/18 08:00 Temperature 98.8 F Pulse Rate 78 Respiratory Rate 19 Blood Pressure 111/69 Pulse Oximetry 94 L Intake & Output 09/27/18 09/28/18 09/28/18 18:59 06:59 18:59 Intake Total 600 / 600 240 / 240 Balance 600 / 600 240 / 240 Weight 58.4 kg Intake: Oral 600 / 600 240 / 240 Other: # Voids 3 1 Date of Last Bowel Movement 09/27/18 09/27/18 09/27/18 # Bowel Movements 1 Narrative: GENERAL: Alert and oriented, appears in NAD. SKIN: Warm and dry. Right upper chest permacath in place CARDIOVASCULAR: Regular rate and rhythm. Positive murmur RESPIRATORY: Lung sounds diminished. GASTROINTESTINAL: Abdomen soft, non-tender, mildly distended. MUSCULOSKELETAL: Extremities without clubbing, cyanosis. No obvious deformities. no edema <Debbie Godinez - Last Filed: 09/28/18 13:20> Vital signs: Vital Signs 10/02/18 00:00 10/02/18 04:00 10/02/18 07:15 Temperature 98.6 F 98.5 F Pulse Rate 82 85 Respiratory Rate 15 17 18 Blood Pressure 107/72 122/89 Pulse Oximetry 99 94 L 10/02/18 08:00 10/02/18 12:00 10/02/18 16:00 Temperature 98.6 F 97.4 F L 98 F Pulse Rate 78 74 82 Respiratory Rate 20 18 18 Blood Pressure 113/69 114/69 138/92 H Pulse Oximetry 99 98 96 Intake & Output 10/02/18 10/02/18 10/03/18 06:59 18:59 06:59 Intake Total 720 / 720 1560 / 1560 Balance 720 / 720 1560 / 1560 Weight 55.7 kg Intake: Oral 720 / 720 1560 / 1560 Other: # Voids 3 8 Date of Last Bowel Movement 10/01/18 10/02/18 # Bowel Movements 2 <Bhargav Monge - Last Filed: 10/02/18 21:29> Assessment and Plan - Assessment (1) Acute kidney injury Code(s): N17.9 - Acute kidney failure, unspecified Status: Acute Plan: Acute kidney injury requiring hemodialysis. 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 Last HD on 09/08 Volume status stable. Avoid nephrotoxins. Recommend to continue low potassium diet. Hyperkalemia resolved. Creatinine slightly higher at 3.12, non oliguric. Continue to hold HD Lasix stopped, If creatinine improves will plan to remove perma cath. Labs in AM (2) Endocarditis Code(s): I38 - Endocarditis, valve unspecified Status: Acute Qualifiers: Endocarditis type: infective Infective endocarditis organism: bacterial Chronicity: acute Qualified Code(s): I33.0 - Acute and subacute infective endocarditis Plan: Antibiotics completed. <Debbie Godinez - Last Filed: 09/28/18 13:20> - Assessment (1) Acute kidney injury Code(s): N17.9 - Acute kidney failure, unspecified Status: Acute Plan: Patient seen and examined, agree with above. Off HD, Creatinine remain almost same. Encourage oral intake. Watch for renal recovery. (2) Endocarditis Code(s): I38 - Endocarditis, valve unspecified Status: Acute Qualifiers: Endocarditis type: infective Infective endocarditis organism: bacterial Chronicity: acute Qualified Code(s): I33.0 - Acute and subacute infective endocarditis <Bhargav Monge - Last Filed: 10/02/18 21:29>
[2018-09-28 11:53] LABS: Calcium 8.6 mg/dL (8.5-10.1); Carbon Dioxide 21.9 meq/L (21.0-32.0); Potassium 4.9 meq/L (3.5-5.1)
--- NOTE | 2018-09-28 16:35 | P.PNIM ---
Subjective Interval history: Patient is currently in no acute distress. She is sitting down on her bed. She is tolerating p.o. diet, no other complaints. Physical Exam Vital signs: Vital Signs 09/27/18 18:03 09/27/18 20:00 09/28/18 00:00 Temperature 97.9 F 98 F Pulse Rate 82 72 Respiratory Rate 16 17 Blood Pressure 116/68 96/61 L Pulse Oximetry 97 98 94 L 09/28/18 03:50 09/28/18 08:00 09/28/18 11:25 Temperature 98.8 F Pulse Rate 80 78 Respiratory Rate 19 19 Blood Pressure 114/84 111/69 Pulse Oximetry 92 L 94 L 94 L 09/28/18 12:00 Temperature 97.6 F Pulse Rate 76 Respiratory Rate 18 Blood Pressure 112/71 Pulse Oximetry 94 L Intake & Output 09/27/18 09/28/18 09/28/18 18:59 06:59 18:59 Intake Total 600 / 600 240 / 240 Balance 600 / 600 240 / 240 Weight 58.4 kg Intake: Oral 600 / 600 240 / 240 Other: # Voids 3 1 Date of Last Bowel Movement 09/27/18 09/27/18 09/27/18 # Bowel Movements 1 Narrative: General patient in no acute distress HEENT extraocular movements are intact, clear oropharyngeal mucosa, + JVD Cardiovascular S1-S2 audible, RRR Respiratory clear to auscultation bilaterally Abdomen soft, mildly distended, nontender, normal bowel sounds Extremities no edema 2+ distal pulses in bilateral upper and lower extremities Neuro cranial nerves II through XII intact Results - Labs CBC & Chem 7: 09/19/18 06:00 09/28/18 11:21 Laboratory Results - last 24 hr 09/28/18 11:21 Sodium 133 L Potassium 4.9 Chloride 101 Carbon Dioxide 21.9 Anion Gap 10 BUN 71 H Creatinine 3.12 H Estimated GFR 18 L Random Glucose 113 H Calcium 8.6 Assessment and Plan - Assessment (1) IV drug abuse Code(s): F19.10 - Other psychoactive substance abuse, uncomplicated Status: Acute (2) Endocarditis Code(s): I38 - Endocarditis, valve unspecified Status: Acute (3) Sepsis Code(s): A41.9 - Sepsis, unspecified organism Status: Resolved (4) End-stage renal disease (ESRD) Code(s): N18.6 - End stage renal disease Status: Acute (5) Ascites Code(s): R18.8 - Other ascites Status: Acute (6) Acute kidney injury Code(s): N17.9 - Acute kidney failure, unspecified Status: Acute - Plan Patient is a 28-year-old female with a history of IV drug use. She was admitted previously in May for MSSA septicemia however left AGAINST MEDICAL ADVICE during that admission. As per Dr. mitchell the patient was also seen at [facility] after that incidence and also left AGAINST MEDICAL ADVICE. The patient is now admitted and being treated for suspected MSSA septicemia with suspicion for endocarditis. 1. Acute kidney injury previously on hemodialysis, last hemodialysis was 2017. 2. MSSA septicemia with Endocarditis 3. Acute hypoxic respiratory failure Patient completed her treatment for MSSA septicemia with endocarditis. Patient has acute kidney injury and was on hemodialysis initially during the hospitalization. We will believe the patient's acute kidney injury developed from possible septic emboli/glomerular nephritis. Her last hemodialysis session was on 09/08. Nephrology is following the patient. Creatinine is around 3.1 today. The patient is currently on 2 L of supplemental oxygen. I will obtain a chest x-ray. We will continue to attempt to wean the patient off of supplemental O2. 4. History of IV drug use Patient was counseled on the risks of IV drug use. Patient was advised to stop. 5. Anxiety Continue Xanax as needed. Patient is ambulatory. No pharmacotherapy for DVT prophylaxis. (2) Endocarditis Qualifiers: Endocarditis type: infective Infective endocarditis organism: bacterial Chronicity: acute Qualified Code(s): I33.0 - Acute and subacute infective endocarditis (5) Ascites Qualifiers: Ascites type: other type Qualified Code(s): R18.8 - Other ascites
--- NOTE | 2018-09-28 17:15 | XR ---
EXAM DATE: 09/28/2018 5:00 PM EST AGE/SEX: 28 years / Female INDICATIONS: Cough and shortness of breath. CLINICAL DATA: This is the patient's subsequent encounter. Patient reports that signs and symptoms h ave been present for 1 month and indicates a pain score of 0/10. MEDICAL/SURGICAL HISTORY: . Asthma. Hepatitis C. None. COMPARISON: [facility] [place], CHEST 1V SINGLE AP, 08/28/2018. . FINDINGS: The heart is enlarged. Right basilar patchiness is noted consistent with atelectasis and/or infiltrat e. Right internal jugular tunneled dialysis catheter has its tips in the superior vena cava. No pneum othorax is noted. CONCLUSION: 1. Right basilar patchiness consistent with atelectasis and/or infiltrate. 2. Cardiomegaly. Electronically signed by: Dev Hines MD 09/28/2018 5:14 PM EST
[2018-09-28] MEDS: QUEtiapine 25 MG Tablet PO SCH (20:04)
[2018-09-29] MEDS: ALPRAZolam 0.25 MG Tablet PO PRN ×3 (06:01→22:56)
--- NOTE | 2018-09-29 08:20 | P.PNIM ---
Subjective Interval history: Patient is in no acute distress. No complaints of shortness of breath while at rest. Physical Exam Vital signs: Vital Signs 09/28/18 11:25 09/28/18 12:00 09/28/18 16:00 Temperature 97.6 F 98.0 F Pulse Rate 76 81 Respiratory Rate 18 19 Blood Pressure 112/71 113/74 Pulse Oximetry 94 L 94 L 97 09/28/18 20:00 09/29/18 00:00 Temperature 99 F 98.5 F Pulse Rate 81 74 Respiratory Rate 20 20 Blood Pressure 117/71 114/72 Pulse Oximetry 98 99 Intake & Output 09/28/18 09/29/18 09/29/18 18:59 06:59 18:59 Intake Total 900 / 900 320 / 320 Output Total 750 / 750 Balance 150 / 150 320 / 320 Weight 58.7 kg Intake: Oral 900 / 900 320 / 320 Output: Urine 750 / 750 Other: # Voids 2 Date of Last Bowel Movement 09/27/18 09/28/18 # Bowel Movements 1 Narrative: General patient in no acute distress HEENT extraocular movements are intact, clear oropharyngeal mucosa, + JVD Cardiovascular S1-S2 audible, RRR Respiratory clear to auscultation bilaterally Abdomen soft, mildly distended, nontender, normal bowel sounds Extremities no edema 2+ distal pulses in bilateral upper and lower extremities Neuro cranial nerves II through XII intact Results - Labs CBC & Chem 7: 09/19/18 06:00 09/28/18 11:21 Laboratory Results - last 24 hr 09/28/18 11:21 Sodium 133 L Potassium 4.9 Chloride 101 Carbon Dioxide 21.9 Anion Gap 10 BUN 71 H Creatinine 3.12 H Estimated GFR 18 L Random Glucose 113 H Calcium 8.6 - Imaging Impressions Chest X-Ray 09/28/18 00:00 CONCLUSION: 1. Right basilar patchiness consistent with atelectasis and/or infiltrate. 2. Cardiomegaly. Assessment and Plan - Assessment (1) IV drug abuse Code(s): F19.10 - Other psychoactive substance abuse, uncomplicated Status: Acute (2) Endocarditis Code(s): I38 - Endocarditis, valve unspecified Status: Acute (3) Sepsis Code(s): A41.9 - Sepsis, unspecified organism Status: Resolved (4) End-stage renal disease (ESRD) Code(s): N18.6 - End stage renal disease Status: Acute (5) Ascites Code(s): R18.8 - Other ascites Status: Acute (6) Acute kidney injury Code(s): N17.9 - Acute kidney failure, unspecified Status: Acute - Plan Patient is a 28-year-old female with a history of IV drug use. She was admitted previously in May for MSSA septicemia however left AGAINST MEDICAL ADVICE during that admission. As per Dr. mitchell the patient was also seen at [facility] after that incidence and also left AGAINST MEDICAL ADVICE. The patient is now admitted and being treated for suspected MSSA septicemia with suspicion for endocarditis. 1. Acute kidney injury previously on hemodialysis, last hemodialysis was 2017. 2. MSSA septicemia with Endocarditis 3. Acute hypoxic respiratory failure Patient completed her treatment for MSSA septicemia with endocarditis. Patient has acute kidney injury and was on hemodialysis initially during the hospitalization. We will believe the patient's acute kidney injury developed from possible septic emboli/glomerular nephritis. Her last hemodialysis session was on 09/08. Patient not in fluid overload. Chest xray from yesterday shows small right lower lobe infiltrate/effusion. No cough from the patient and she is now on room air. We will ambulate the patient today to see if she desaturates while ambulating. Nephrology is following the patient. Creatinine is around 3.1 today. 4. History of IV drug use Patient was counseled on the risks of IV drug use. Patient was advised to stop. 5. Anxiety Continue Xanax as needed. Patient is ambulatory. No pharmacotherapy for DVT prophylaxis. Discharge planning: Patient is now on room air. I will discuss the case with Nephrology and case management. Patient will possibly be discharged today. (2) Endocarditis Qualifiers: Endocarditis type: infective Infective endocarditis organism: bacterial Chronicity: acute Qualified Code(s): I33.0 - Acute and subacute infective endocarditis (5) Ascites Qualifiers: Ascites type: other type Qualified Code(s): R18.8 - Other ascites
[2018-09-29] MEDS: FLUoxetine 10 MG Capsule PO SCH (09:22)
[2018-09-29] MEDS: Metoprolol Tartrate 25 MG Tablet PO SCH ×2 (09:22→20:04)
[2018-09-29] MEDS: Famotidine 20 MG Tablet PO SCH ×2 (09:22→20:04)
[2018-09-29] MEDS: Sodium Chloride 0.9% 2 ML Flush BID IV.FLUSH SCH ×2 (09:23→20:04)
[2018-09-29 09:38] LABS: Calcium 8.4 mg/dL (8.5-10.1); Carbon Dioxide 19.5 meq/L (21.0-32.0); Phosphorus 3.5 mg/dL (2.5-4.9); Potassium 5.3 meq/L (3.5-5.1)
--- NOTE | 2018-09-29 10:34 | P.PNNP ---
Subjective Interval history: Resting comfortably in bed. No acute events overnight. Creatinine has improved at 2.87. <Debbie Godinez - Last Filed: 09/29/18 12:27> Physical Exam Vital signs: Vital Signs 09/28/18 11:25 09/28/18 12:00 09/28/18 16:00 Temperature 97.6 F 98.0 F Pulse Rate 76 81 Respiratory Rate 18 19 Blood Pressure 112/71 113/74 Pulse Oximetry 94 L 94 L 97 09/28/18 20:00 09/29/18 00:00 09/29/18 08:00 Temperature 99 F 98.5 F 97.1 F L Pulse Rate 81 74 83 Respiratory Rate 20 20 15 Blood Pressure 117/71 114/72 115/74 Pulse Oximetry 98 99 93 L Intake & Output 09/28/18 09/29/18 09/29/18 18:59 06:59 18:59 Intake Total 900 / 900 320 / 320 Output Total 750 / 750 Balance 150 / 150 320 / 320 Weight 58.7 kg Intake: Oral 900 / 900 320 / 320 Output: Urine 750 / 750 Other: # Voids 2 Date of Last Bowel Movement 09/27/18 09/28/18 # Bowel Movements 1 Narrative: GENERAL: Alert and oriented, appears in NAD. SKIN: Warm and dry. Right upper chest permacath in place CARDIOVASCULAR: Regular rate and rhythm. Positive murmur RESPIRATORY: Lung sounds diminished. GASTROINTESTINAL: Abdomen soft, non-tender, mildly distended. MUSCULOSKELETAL: Extremities without clubbing, cyanosis. No obvious deformities. no edema <Debbie Godinez - Last Filed: 09/29/18 12:27> Vital signs: Vital Signs 10/02/18 00:00 10/02/18 04:00 10/02/18 07:15 Temperature 98.6 F 98.5 F Pulse Rate 82 85 Respiratory Rate 15 17 18 Blood Pressure 107/72 122/89 Pulse Oximetry 99 94 L 10/02/18 08:00 10/02/18 12:00 10/02/18 16:00 Temperature 98.6 F 97.4 F L 98 F Pulse Rate 78 74 82 Respiratory Rate 20 18 18 Blood Pressure 113/69 114/69 138/92 H Pulse Oximetry 99 98 96 Intake & Output 10/02/18 10/02/18 10/03/18 06:59 18:59 06:59 Intake Total 720 / 720 1560 / 1560 Balance 720 / 720 1560 / 1560 Weight 55.7 kg Intake: Oral 720 / 720 1560 / 1560 Other: # Voids 3 8 Date of Last Bowel Movement 10/01/18 10/02/18 # Bowel Movements 2 <Bhargav Monge - Last Filed: 10/02/18 22:10> Assessment and Plan - Assessment (1) Acute kidney injury Code(s): N17.9 - Acute kidney failure, unspecified Status: Acute Plan: Acute kidney injury requiring hemodialysis. 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 Last HD on 09/08 Volume status stable. Avoid nephrotoxins. Recommend to continue low potassium diet. Potassium level at 5.3, will order veltassa. Creatinine slightly improved at 2.87 Continue to hold HD If creatinine continues improve will remove perma cath tomorrow. (2) Endocarditis Code(s): I38 - Endocarditis, valve unspecified Status: Acute Qualifiers: Endocarditis type: infective Infective endocarditis organism: bacterial Chronicity: acute Qualified Code(s): I33.0 - Acute and subacute infective endocarditis Plan: Antibiotics completed. <Debbie Godinez - Last Filed: 09/29/18 12:27> - Assessment (1) Acute kidney injury Code(s): N17.9 - Acute kidney failure, unspecified Status: Acute Plan: Patient seen and examined, agree with above. HD on hold, if Creatinine continue to improve, to D/C PermCath. (2) Endocarditis Code(s): I38 - Endocarditis, valve unspecified Status: Acute Qualifiers: Endocarditis type: infective Infective endocarditis organism: bacterial Chronicity: acute Qualified Code(s): I33.0 - Acute and subacute infective endocarditis <Bhargav Monge - Last Filed: 10/02/18 22:10>
[2018-09-29] MEDS: QUEtiapine 25 MG Tablet PO SCH (20:03)
[2018-09-30] MEDS: ALPRAZolam 0.25 MG Tablet PO PRN ×2 (06:45→15:04)
[2018-09-30 07:19] LABS: Calcium 8.6 mg/dL (8.5-10.1); Carbon Dioxide 23.1 meq/L (21.0-32.0); Potassium 5.1 meq/L (3.5-5.1)
[2018-09-30] MEDS: FLUoxetine 10 MG Capsule PO SCH (08:45)
[2018-09-30] MEDS: Famotidine 20 MG Tablet PO SCH ×2 (08:45→20:08)
[2018-09-30] MEDS: Sodium Chloride 0.9% 2 ML Flush BID IV.FLUSH SCH ×2 (08:46→20:08)
[2018-09-30] MEDS: Metoprolol Tartrate 25 MG Tablet PO SCH ×2 (08:46→20:07)
--- NOTE | 2018-09-30 11:07 | P.PNIM ---
Subjective Interval history: Patient does not appear to be in any acute distress. She says she does not want to go outside of her room because she does not want to be around people. No other complaints from the patient. Physical Exam Vital signs: Vital Signs 09/29/18 12:00 09/29/18 13:46 09/29/18 16:00 Temperature 98.1 F 98.6 F Pulse Rate 73 80 Respiratory Rate 16 16 Blood Pressure 102/66 119/69 Pulse Oximetry 99 99 97 09/29/18 19:55 09/29/18 20:00 09/30/18 00:00 Temperature 98.5 F 98.4 F Pulse Rate 86 77 Respiratory Rate 16 16 Blood Pressure 121/83 108/66 Pulse Oximetry 99 98 99 09/30/18 08:00 09/30/18 09:45 Temperature 98.2 F Pulse Rate 84 78 Respiratory Rate 18 16 Blood Pressure 124/83 Pulse Oximetry 95 95 Intake & Output 09/29/18 09/30/18 09/30/18 18:59 06:59 18:59 Intake Total 580 / 580 Output Total 400 / 400 Balance 180 / 180 Weight 59 kg Intake: Oral 580 / 580 Output: Urine 400 / 400 Other: # Voids 1 Date of Last Bowel Movement 09/28/18 09/28/18 # Bowel Movements 1 Narrative: General patient in no acute distress HEENT extraocular movements are intact, clear oropharyngeal mucosa, + JVD Cardiovascular S1-S2 audible, RRR Respiratory clear to auscultation bilaterally Abdomen soft, mildly distended, nontender, normal bowel sounds Extremities no edema 2+ distal pulses in bilateral upper and lower extremities Neuro cranial nerves II through XII intact Results - Labs CBC & Chem 7: 09/19/18 06:00 09/30/18 06:10 Laboratory Results - last 24 hr 09/30/18 06:10 Sodium 132 L Potassium 5.1 Chloride 103 Carbon Dioxide 23.1 Anion Gap 6 BUN 76 H Creatinine 2.86 H Estimated GFR 19 L Random Glucose 91 Calcium 8.6 Assessment and Plan - Assessment (1) IV drug abuse Code(s): F19.10 - Other psychoactive substance abuse, uncomplicated Status: Acute (2) Endocarditis Code(s): I38 - Endocarditis, valve unspecified Status: Acute (3) Sepsis Code(s): A41.9 - Sepsis, unspecified organism Status: Resolved (4) End-stage renal disease (ESRD) Code(s): N18.6 - End stage renal disease Status: Acute (5) Ascites Code(s): R18.8 - Other ascites Status: Acute (6) Acute kidney injury Code(s): N17.9 - Acute kidney failure, unspecified Status: Acute - Plan Patient is a 28-year-old female with a history of IV drug use. She was admitted previously in May for MSSA septicemia however left AGAINST MEDICAL ADVICE during that admission. As per Dr. mitchell the patient was also seen at [facility] after that incidence and also left AGAINST MEDICAL ADVICE. The patient is now admitted and being treated for suspected MSSA septicemia with suspicion for endocarditis. 09/30/18 No significant change in the patient's management as of today. Nephrology is following the patient for acute kidney injury as the patient was previously on hemodialysis, last hemodialysis was on 09/08/2018. Creatinine is 2.86 as of today, continues to downtrend. I will continue to follow-up with nephrology further recommendations. Case discussed with case management, we are awaiting clearance from nephrology in order to discharge the patient. 1. Acute kidney injury previously on hemodialysis, last hemodialysis was 2017. 2. MSSA septicemia with Endocarditis 3. Acute hypoxic respiratory failure Patient completed her treatment for MSSA septicemia with endocarditis. Patient has acute kidney injury and was on hemodialysis initially during the hospitalization. We will believe the patient's acute kidney injury developed from possible septic emboli/glomerular nephritis. Her last hemodialysis session was on 09/08. Patient not in fluid overload. Chest xray from yesterday shows small right lower lobe infiltrate/effusion. No cough from the patient and she is now on room air. We will ambulate the patient today to see if she desaturates while ambulating. Nephrology is following the patient. Creatinine is around 3.1 today. 4. History of IV drug use Patient was counseled on the risks of IV drug use. Patient was advised to stop. 5. Anxiety Continue Xanax as needed. Patient is ambulatory. No pharmacotherapy for DVT prophylaxis. Discharge planning: Patient is now on room air. I will discuss the case with Nephrology and case management. Patient will possibly be discharged today. (2) Endocarditis Qualifiers: Endocarditis type: infective Infective endocarditis organism: bacterial Chronicity: acute Qualified Code(s): I33.0 - Acute and subacute infective endocarditis (5) Ascites Qualifiers: Ascites type: other type Qualified Code(s): R18.8 - Other ascites
[2018-09-30] MEDS: QUEtiapine 25 MG Tablet PO SCH (20:07)
--- NOTE | 2018-09-30 21:57 | P.PNNP ---
Subjective Interval history: Patient seen in the afternoon, alert, no SOB, with nasal cannula. Physical Exam Vital signs: Vital Signs 09/30/18 00:00 09/30/18 08:00 09/30/18 09:45 Temperature 98.4 F 98.2 F Pulse Rate 77 84 78 Respiratory Rate 16 18 16 Blood Pressure 108/66 124/83 Pulse Oximetry 99 95 95 09/30/18 12:00 09/30/18 16:00 09/30/18 20:00 Temperature 98.1 F 98.3 F 98.4 F Pulse Rate 82 69 84 Respiratory Rate 20 18 16 Blood Pressure 115/78 130/84 116/80 Pulse Oximetry 98 97 95 Intake & Output 09/30/18 09/30/18 10/01/18 06:59 18:59 06:59 Intake Total 580 / 580 1800 / 1800 Output Total 400 / 400 Balance 180 / 180 1800 / 1800 Weight 59 kg Intake: Oral 580 / 580 1800 / 1800 Output: Urine 400 / 400 Other: # Voids 1 4 Date of Last Bowel Movement 09/28/18 # Bowel Movements 1 2 Narrative: General patient in no acute distress HEENT extraocular movements are intact, clear oropharyngeal mucosa, + JVD Cardiovascular S1-S2 audible, RRR Respiratory clear to auscultation bilaterally Abdomen soft, mildly distended, nontender, normal bowel sounds Extremities no edema 2+ distal pulses in bilateral upper and lower extremities Neuro cranial nerves II through XII intact Assessment and Plan - Assessment (1) Acute kidney injury Code(s): N17.9 - Acute kidney failure, unspecified Status: Acute Plan: Acute kidney injury requiring hemodialysis. 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 Last HD on 09/08 Volume status stable. Avoid nephrotoxins. Recommend to continue low potassium diet. Potassium level at 5.3, will order veltassa. Creatinine remain stable at 2.87 Continue to hold HD If creatinine continues improve will remove perma cath. (2) Endocarditis Code(s): I38 - Endocarditis, valve unspecified Status: Acute Qualifiers: Endocarditis type: infective Infective endocarditis organism: bacterial Chronicity: acute Qualified Code(s): I33.0 - Acute and subacute infective endocarditis Plan: Antibiotics completed. - Plan Patient with sepsis, bacteremia and develop TED. Non oliguric, Creatinine slightly better yesterday 3.1. Continue to hold HD for now. If Creatinine continue to improve, will D/C Vascath.
[2018-10-01] MEDS: ALPRAZolam 0.25 MG Tablet PO PRN ×3 (03:42→21:18)
[2018-10-01] MEDS: FLUoxetine 10 MG Capsule PO SCH (08:08)
[2018-10-01] MEDS: Metoprolol Tartrate 25 MG Tablet PO SCH ×2 (08:08→21:18)
[2018-10-01] MEDS: Famotidine 20 MG Tablet PO SCH ×2 (08:08→21:18)
[2018-10-01] MEDS: Sodium Chloride 0.9% 2 ML Flush BID IV.FLUSH SCH ×2 (08:10→21:25)
[2018-10-01 08:11] LABS: Carbon Dioxide 23.5 meq/L (21.0-32.0); Potassium 5.5 meq/L (3.5-5.1)
--- NOTE | 2018-10-01 11:34 | P.PNNP ---
Subjective Interval history: Denies any shortness of breath, chest pain, nausea, or vomiting. Creatinine continues to improve at 2.68, potassium level at 5.5. <Debbie Godinez - Last Filed: 10/01/18 11:31> Physical Exam Vital signs: Vital Signs 09/30/18 12:00 09/30/18 16:00 09/30/18 20:00 Temperature 98.1 F 98.3 F 98.4 F Pulse Rate 82 69 84 Respiratory Rate 20 18 16 Blood Pressure 115/78 130/84 116/80 Pulse Oximetry 98 97 95 10/01/18 00:00 10/01/18 08:00 Temperature 98.7 F 97.8 F Pulse Rate 80 80 Respiratory Rate 16 17 Blood Pressure 111/65 115/69 Pulse Oximetry 80 L 98 Intake & Output 09/30/18 10/01/18 10/01/18 18:59 06:59 18:59 Intake Total 1800 / 1800 580 / 580 Output Total 1000 / 1000 Balance 1800 / 1800 -420 / -420 Weight 59 kg Intake: Oral 1800 / 1800 580 / 580 Output: Urine 1000 / 1000 Other: # Voids 4 Date of Last Bowel Movement 09/28/18 09/28/18 # Bowel Movements 2 Narrative: GENERAL: Alert and oriented. SKIN: Warm and dry. NECK: Supple, trachea midline. No JVD. CARDIOVASCULAR: Regular rate and rhythm. Murmur. Right IJ PermCath. RESPIRATORY: Breath sounds equal bilaterally. No accessory muscle use. GASTROINTESTINAL: Abdomen soft, non-tender. MUSCULOSKELETAL: No cyanosis, or edema. BACK: Nontender without obvious deformity. No CVA tenderness. <Debbie Godinez - Last Filed: 10/01/18 11:31> Vital signs: Vital Signs 10/03/18 00:00 10/03/18 08:00 10/03/18 12:00 Temperature 98.5 F 97.6 F 98.1 F Pulse Rate 77 82 79 Respiratory Rate 15 16 18 Blood Pressure 110/61 120/74 102/72 Pulse Oximetry 98 97 98 10/03/18 12:15 10/03/18 16:00 10/03/18 17:06 Temperature 98.4 F Pulse Rate 82 Respiratory Rate 18 16 16 Blood Pressure 122/81 Pulse Oximetry 95 10/03/18 17:57 Temperature Pulse Rate Respiratory Rate Blood Pressure Pulse Oximetry 98 Intake & Output 10/03/18 10/03/18 10/04/18 06:59 18:59 06:59 Intake Total 320 / 320 600 / 600 Output Total 350 / 350 Balance -30 / -30 600 / 600 Weight 60.1 kg Intake: Oral 320 / 320 600 / 600 Output: Urine 350 / 350 Other: # Voids 2 Date of Last Bowel Movement 10/02/18 <Bhargav Monge - Last Filed: 10/03/18 21:03> Assessment and Plan - Assessment (1) Acute kidney injury Code(s): N17.9 - Acute kidney failure, unspecified Status: Acute Plan: Acute kidney injury requiring hemodialysis. 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 Last HD on 09/08 Volume status stable. Avoid nephrotoxins. Recommend to continue low potassium diet. Potassium level at 5.5, will order veltassa. Creatinine remain stable at 2.68, non oliguric. Plan to remove permacath on Wednesday. (2) Endocarditis Code(s): I38 - Endocarditis, valve unspecified Status: Acute Qualifiers: Endocarditis type: infective Infective endocarditis organism: bacterial Chronicity: acute Qualified Code(s): I33.0 - Acute and subacute infective endocarditis Plan: Antibiotics completed. <Debbie Godinez - Last Filed: 10/01/18 11:31> - Assessment (1) Acute kidney injury Code(s): N17.9 - Acute kidney failure, unspecified Status: Acute Plan: Patient seen and examined, agree with above. K has been elevated, need low K diet and started on Veltassa. (2) Endocarditis Code(s): I38 - Endocarditis, valve unspecified Status: Acute Qualifiers: Endocarditis type: infective Infective endocarditis organism: bacterial Chronicity: acute Qualified Code(s): I33.0 - Acute and subacute infective endocarditis <Bhargav Monge - Last Filed: 10/03/18 21:03>
--- NOTE | 2018-10-01 12:18 | P.PNIM ---
Subjective Interval history: Patient is sitting upright in bed. She does not have any significant complaints this morning. Physical Exam Vital signs: Vital Signs 09/30/18 16:00 09/30/18 20:00 10/01/18 00:00 Temperature 98.3 F 98.4 F 98.7 F Pulse Rate 69 84 80 Respiratory Rate 18 16 16 Blood Pressure 130/84 116/80 111/65 Pulse Oximetry 97 95 80 L 10/01/18 08:00 Temperature 97.8 F Pulse Rate 80 Respiratory Rate 17 Blood Pressure 115/69 Pulse Oximetry 98 Intake & Output 09/30/18 10/01/18 10/01/18 18:59 06:59 18:59 Intake Total 1800 / 1800 580 / 580 Output Total 1000 / 1000 Balance 1800 / 1800 -420 / -420 Weight 59 kg Intake: Oral 1800 / 1800 580 / 580 Output: Urine 1000 / 1000 Other: # Voids 4 Date of Last Bowel Movement 09/28/18 09/28/18 # Bowel Movements 2 Narrative: General patient in no acute distress HEENT extraocular movements are intact, clear oropharyngeal mucosa, + JVD Cardiovascular S1-S2 audible, RRR, permacath in place. Respiratory clear to auscultation bilaterally Abdomen soft, mildly distended, nontender, normal bowel sounds Extremities no edema 2+ distal pulses in bilateral upper and lower extremities Neuro cranial nerves II through XII intact Results - Labs CBC & Chem 7: 09/19/18 06:00 10/01/18 07:12 Laboratory Results - last 24 hr 10/01/18 07:12 Sodium 134 L Potassium 5.5 H Chloride 103 Carbon Dioxide 23.5 Anion Gap 8 BUN 79 H Creatinine 2.68 H Estimated GFR 21 L Random Glucose 84 Calcium 9.0 Assessment and Plan - Assessment (1) IV drug abuse Code(s): F19.10 - Other psychoactive substance abuse, uncomplicated Status: Acute (2) Endocarditis Code(s): I38 - Endocarditis, valve unspecified Status: Acute (3) Sepsis Code(s): A41.9 - Sepsis, unspecified organism Status: Resolved (4) End-stage renal disease (ESRD) Code(s): N18.6 - End stage renal disease Status: Acute (5) Ascites Code(s): R18.8 - Other ascites Status: Acute (6) Acute kidney injury Code(s): N17.9 - Acute kidney failure, unspecified Status: Acute - Plan Patient is a 28-year-old female with a history of IV drug use. She was admitted previously in May for MSSA septicemia however left AGAINST MEDICAL ADVICE during that admission. As per Dr. mitchell the patient was also seen at [facility] after that incidence and also left AGAINST MEDICAL ADVICE. The patient is now admitted and being treated for suspected MSSA septicemia with suspicion for endocarditis. 10/01/2018 No significant change in the patient's management as of today. Nephrology is following the patient for acute kidney injury as the patient was previously on hemodialysis, last hemodialysis was on 09/08/2018. Creatinine is 2.6 as of today, continues to downtrend. Potassium 5.5. Patient started on Veltassa as per nephrology. If the patient's creatinine continues to improve the plan is to remove the permacath on Wednesday. I will continue to follow-up with nephrology further recommendations. Case discussed with case management, we are awaiting clearance from nephrology in order to discharge the patient. 1. Acute kidney injury previously on hemodialysis, last hemodialysis was 2017. 2. MSSA septicemia with Endocarditis 3. Acute hypoxic respiratory failure Patient completed her treatment for MSSA septicemia with endocarditis. Patient has acute kidney injury and was on hemodialysis initially during the hospitalization. We will believe the patient's acute kidney injury developed from possible septic emboli/glomerular nephritis. Her last hemodialysis session was on 09/08. Patient not in fluid overload. Chest xray from yesterday shows small right lower lobe infiltrate/effusion. No cough from the patient and she is now on room air. We will ambulate the patient today to see if she desaturates while ambulating. Nephrology is following the patient. Creatinine is around 3.1 today. 4. History of IV drug use Patient was counseled on the risks of IV drug use. Patient was advised to stop. 5. Anxiety Continue Xanax as needed. Patient is ambulatory. No pharmacotherapy for DVT prophylaxis. Discharge planning: Patient is now on room air. I will discuss the case with Nephrology and case management. Patient will possibly be discharged today. (2) Endocarditis Qualifiers: Endocarditis type: infective Infective endocarditis organism: bacterial Chronicity: acute Qualified Code(s): I33.0 - Acute and subacute infective endocarditis (5) Ascites Qualifiers: Ascites type: other type Qualified Code(s): R18.8 - Other ascites
[2018-10-01] MEDS: QUEtiapine 25 MG Tablet PO SCH (21:18)
[2018-10-02] MEDS: ALPRAZolam 0.25 MG Tablet PO PRN ×2 (06:24→14:53)
[2018-10-02] MEDS: FLUoxetine 10 MG Capsule PO SCH (09:20)
[2018-10-02] MEDS: Famotidine 20 MG Tablet PO SCH ×2 (09:20→20:53)
[2018-10-02] MEDS: Sodium Chloride 0.9% 2 ML Flush BID IV.FLUSH SCH ×2 (09:20→20:53)
[2018-10-02] MEDS: Metoprolol Tartrate 25 MG Tablet PO SCH ×2 (09:20→20:53)
[2018-10-02 09:45] LABS: Carbon Dioxide 20.7 meq/L (21.0-32.0); Potassium 5.5 meq/L (3.5-5.1)
--- NOTE | 2018-10-02 13:46 | P.PNNP ---
Subjective Interval history: Resting comfortably, no acute events overnight. Creatinine at 2.87 today, potassium slightly elevated at 5.5. <Debbie Godinez - Last Filed: 10/02/18 13:44> Physical Exam Vital signs: Vital Signs 10/01/18 16:00 10/01/18 20:00 10/02/18 00:00 Temperature 98.6 F 97.7 F 98.6 F Pulse Rate 83 92 H 82 Respiratory Rate 18 16 15 Blood Pressure 121/79 121/79 107/72 Pulse Oximetry 96 99 99 10/02/18 04:00 10/02/18 07:15 10/02/18 08:00 Temperature 98.5 F 98.6 F Pulse Rate 85 78 Respiratory Rate 17 18 20 Blood Pressure 122/89 113/69 Pulse Oximetry 94 L 99 10/02/18 12:00 Temperature 97.4 F L Pulse Rate 74 Respiratory Rate 18 Blood Pressure 114/69 Pulse Oximetry 98 Intake & Output 10/01/18 10/02/18 10/02/18 18:59 06:59 18:59 Intake Total 1800 / 1800 720 / 720 Output Total 600 / 600 Balance 1200 / 1200 720 / 720 Weight 55.7 kg Intake: Oral 1800 / 1800 720 / 720 Output: Urine 600 / 600 Other: # Voids 3 Date of Last Bowel Movement 09/28/18 10/01/18 10/01/18 Narrative: GENERAL: Alert and oriented. SKIN: Warm and dry. NECK: Supple, trachea midline. No JVD. CARDIOVASCULAR: Regular rate and rhythm. Murmur. Right IJ PermCath. RESPIRATORY: Breath sounds equal bilaterally. No accessory muscle use. GASTROINTESTINAL: Abdomen soft, non-tender. MUSCULOSKELETAL: No cyanosis, or edema. BACK: Nontender without obvious deformity. No CVA tenderness. <Debbie Godinez - Last Filed: 10/02/18 13:44> Vital signs: Vital Signs 10/04/18 00:00 10/04/18 03:56 10/04/18 08:00 Temperature 98.1 F 97.6 F Pulse Rate 75 84 Respiratory Rate 20 17 17 Blood Pressure 109/73 113/65 Pulse Oximetry 95 98 Pulse Oximetry [Exertion on Room Air] Pulse Oximetry [Resting on Room Air] 10/04/18 12:00 10/04/18 15:29 10/04/18 15:45 Temperature 98.0 F Pulse Rate 80 Respiratory Rate 17 Blood Pressure 112/74 Pulse Oximetry 98 95 Pulse Oximetry [Exertion on Room Air] 95 Pulse Oximetry [Resting on Room Air] 98 10/04/18 16:00 Temperature 97.3 F L Pulse Rate 72 Respiratory Rate 17 Blood Pressure 127/81 Pulse Oximetry 94 L Pulse Oximetry [Exertion on Room Air] Pulse Oximetry [Resting on Room Air] Intake & Output 10/04/18 10/04/18 10/05/18 06:59 18:59 06:59 Intake Total 828 / 828 1000 / 1000 Balance 828 / 828 1000 / 1000 Weight 58.2 kg Intake: Oral 828 / 828 1000 / 1000 Other: # Voids 3 6 Date of Last Bowel Movement 10/04/18 # Bowel Movements 1 <Bhargav Monge - Last Filed: 10/04/18 20:38> Assessment and Plan - Assessment (1) Acute kidney injury Code(s): N17.9 - Acute kidney failure, unspecified Status: Acute Plan: Acute kidney injury requiring hemodialysis. 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 Last HD on 09/08 Volume status stable. Avoid nephrotoxins. Recommend to continue low potassium diet. Potassium level at 5.5, will order veltassa again today Creatinine remain stable at 2.86, non oliguric. Plan to remove permacath on tomorrow if creatinine remains stable. (2) Endocarditis Code(s): I38 - Endocarditis, valve unspecified Status: Acute Qualifiers: Endocarditis type: infective Infective endocarditis organism: bacterial Chronicity: acute Qualified Code(s): I33.0 - Acute and subacute infective endocarditis Plan: Antibiotics completed. <Debbie Godienz - Last Filed: 10/02/18 13:44> - Assessment (1) Acute kidney injury Code(s): N17.9 - Acute kidney failure, unspecified Status: Acute Plan: Patient seen and examined, agree with above. Creatinine remain stable, if same will get PermCath remove tomorrow. (2) Endocarditis Code(s): I38 - Endocarditis, valve unspecified Status: Acute Qualifiers: Endocarditis type: infective Infective endocarditis organism: bacterial Chronicity: acute Qualified Code(s): I33.0 - Acute and subacute infective endocarditis <Bhargav Monge - Last Filed: 10/04/18 20:38>
--- NOTE | 2018-10-02 14:59 | P.PNIM ---
Subjective Interval history: 12-1 Patient is sitting upright in bed. She does not have any significant complaints this morning. -2 HOPEFULLY TAKE DIALYSIS ACCESS OUT TOMORROW AM LABS NOT VERY INTERACTIVE DURING MY EXAM NO NEW COMPLAINTS DW RN AND PT AND CM Physical Exam Vital signs: Vital Signs 10/01/18 16:00 10/01/18 20:00 10/02/18 00:00 Temperature 98.6 F 97.7 F 98.6 F Pulse Rate 83 92 H 82 Respiratory Rate 18 16 15 Blood Pressure 121/79 121/79 107/72 Pulse Oximetry 96 99 99 10/02/18 04:00 10/02/18 07:15 10/02/18 08:00 Temperature 98.5 F 98.6 F Pulse Rate 85 78 Respiratory Rate 17 18 20 Blood Pressure 122/89 113/69 Pulse Oximetry 94 L 99 10/02/18 12:00 Temperature 97.4 F L Pulse Rate 74 Respiratory Rate 18 Blood Pressure 114/69 Pulse Oximetry 98 Intake & Output 10/01/18 10/02/18 10/02/18 18:59 06:59 18:59 Intake Total 1800 / 1800 720 / 720 Output Total 600 / 600 Balance 1200 / 1200 720 / 720 Weight 55.7 kg Intake: Oral 1800 / 1800 720 / 720 Output: Urine 600 / 600 Other: # Voids 3 Date of Last Bowel Movement 09/28/18 10/01/18 10/01/18 Narrative: GENERAL: Alert and oriented. SKIN: Warm and dry. NECK: Supple, trachea midline. No JVD. CARDIOVASCULAR: Regular rate and rhythm. Murmur. Right IJ PermCath. RESPIRATORY: Breath sounds equal bilaterally. No accessory muscle use. GASTROINTESTINAL: Abdomen soft, non-tender. MUSCULOSKELETAL: No cyanosis, or edema. BACK: Nontender without obvious deformity. No CVA tenderness. Results - Labs CBC & Chem 7: 09/19/18 06:00 10/02/18 08:57 Laboratory Results - last 24 hr 10/02/18 08:57 Sodium 130 L Potassium 5.5 H Chloride 102 Carbon Dioxide 20.7 L Anion Gap 7 BUN 77 H Creatinine 2.87 H Estimated GFR 19 L Random Glucose 106 Calcium 9.0 - Imaging Chest X-Ray 07/13/18 20:06 CONCLUSION: Mid inspiratory exam with new bilateral airspace disease right greater than left. This could represent pneumonia. Abdomen/Pelvis CT 07/13/18 20:07 CONCLUSION: 1. Bibasilar patchy airspace disease and minimal pleural fluid. 2. Moderate amount of diffuse ascites as well as anasarca. 3. Nonobstructive bowel gas pattern with poor delineation of the bowel secondary to anasarca, lack of intravenous and oral contrast. 4. Cardiomegaly. Chest X-Ray 07/15/18 06:00 CONCLUSION: 1. No significant interval change with persistent patchy bilateral airspace disease. Paracentesis Ultrasound 07/17/18 00:00 CONCLUSION: 1. Uncomplicated paracentesis. Catheter Placement 07/28/18 00:00 CONCLUSION: 1. Uncomplicated tunneled dialysis catheter placement as above. Tube Removal 07/28/18 00:00 CONCLUSION: 1. Uncomplicated catheter removal. Central Venous Line 08/01/18 00:00 CONCLUSION: 1. Uncomplicated PermaCath placement as above. Venous Access Device Injection 08/01/18 00:00 CONCLUSION: 1. Intact dialysis catheter. There is a kink in the catheter and it is to be replaced. Abdomen Ultrasound 08/08/18 00:00 CONCLUSION: 1. Moderate amount of ascites. Paracentesis Ultrasound 08/10/18 00:00 CONCLUSION: 1. Uncomplicated paracentesis Abdomen Ultrasound 08/17/18 00:00 CONCLUSION: 1. Moderate ascites Chest X-Ray 08/18/18 00:00 CONCLUSION: 1. Pulmonary edema pattern with more confluent airspace consolidation in the right mid to lower lung zone. Cannot exclude developing pneumonia or aspiration in the appropriate clinical setting. Chest X-Ray 08/28/18 11:25 CONCLUSION: Bibasilar airspace consolidation, stable on the right and increased on the left. As described previously the distribution could be secondary to pulmonary edema but an infectious process could have a similar appearance as could aspiration. There are likely very small bilateral pleural effusions. Paracentesis Ultrasound 08/29/18 00:00 CONCLUSION: 1. Uncomplicated paracentesis. Paracentesis Ultrasound 09/08/18 00:00 CONCLUSION: 1. Uncomplicated paracentesis. Abdomen Ultrasound 09/15/18 00:00 CONCLUSION: Small amount of free fluid in the abdomen, insufficient for paracentesis. Chest X-Ray 09/28/18 00:00 CONCLUSION: 1. Right basilar patchiness consistent with atelectasis and/or infiltrate. 2. Cardiomegaly. Assessment and Plan - Assessment (1) IV drug abuse Code(s): F19.10 - Other psychoactive substance abuse, uncomplicated Status: Acute (2) Endocarditis Code(s): I38 - Endocarditis, valve unspecified Status: Acute (3) Sepsis Code(s): A41.9 - Sepsis, unspecified organism Status: Resolved (4) End-stage renal disease (ESRD) Code(s): N18.6 - End stage renal disease Status: Acute (5) Ascites Code(s): R18.8 - Other ascites Status: Acute (6) Acute kidney injury Code(s): N17.9 - Acute kidney failure, unspecified Status: Acute - Plan Patient is a 28-year-old female with a history of IV drug use. She was admitted previously in May for MSSA septicemia however left AGAINST MEDICAL ADVICE during that admission. As per Dr. mitchell the patient was also seen at [facility] after that incidence and also left AGAINST MEDICAL ADVICE. The patient is now admitted and being treated for suspected MSSA septicemia with suspicion for endocarditis. 10/01/2018 No significant change in the patient's management as of today. Nephrology is following the patient for acute kidney injury as the patient was previously on hemodialysis, last hemodialysis was on 09/08/2018. Creatinine is 2.6 as of today, continues to downtrend. Potassium 5.5. Patient started on Veltassa as per nephrology. If the patient's creatinine continues to improve the plan is to remove the permacath on Wednesday. I will continue to follow-up with nephrology further recommendations. Case discussed with case management, we are awaiting clearance from nephrology in order to discharge the patient. 12-2 NEEDS HD ACCESS REMOVED BEFORE DISCHARGE NEEDS TO BE OFF OXYGEN SUSPECT WILL RETURN TO IVDA OR DRUG ABUSE AT [place] 1. Acute kidney injury previously on hemodialysis, last hemodialysis was 2017. 2. MSSA septicemia with Endocarditis 3. Acute hypoxic respiratory failure Patient completed her treatment for MSSA septicemia with endocarditis. Patient has acute kidney injury and was on hemodialysis initially during the hospitalization. We will believe the patient's acute kidney injury developed from possible septic emboli/glomerular nephritis. Her last hemodialysis session was on 09/08. Patient not in fluid overload. Chest xray from yesterday shows small right lower lobe infiltrate/effusion. No cough from the patient and she is now on room air. We will ambulate the patient today to see if she desaturates while ambulating. Nephrology is following the patient. Creatinine is around 3.1 today. 4. History of IV drug use Patient was counseled on the risks of IV drug use. Patient was advised to stop. SUSPECT WILL RESTART WHEN SHE LEAVES 5. Anxiety Continue Xanax as needed. Patient is ambulatory. No pharmacotherapy for DVT prophylaxis. Code Status: FULL CODE Discussed Condition With: RN AND PT AND CM Discharge Planning: ONCE CLEARED BY NEPHROLOGY AND OTHERS (2) Endocarditis Qualifiers: Endocarditis type: infective Infective endocarditis organism: bacterial Chronicity: acute Qualified Code(s): I33.0 - Acute and subacute infective endocarditis (5) Ascites Qualifiers: Ascites type: other type Qualified Code(s): R18.8 - Other ascites
[2018-10-02] MEDS: QUEtiapine 25 MG Tablet PO SCH (20:53)
[2018-10-03] MEDS: ALPRAZolam 0.25 MG Tablet PO PRN ×3 (01:19→17:47)
[2018-10-03 08:01] LABS: Calcium 9.3 mg/dL (8.5-10.1); Carbon Dioxide 21.7 meq/L (21.0-32.0); Potassium 5.5 meq/L (3.5-5.1)
[2018-10-03] MEDS: FLUoxetine 10 MG Capsule PO SCH (08:42)
[2018-10-03] MEDS: Famotidine 20 MG Tablet PO SCH ×2 (08:42→20:01)
[2018-10-03] MEDS: Metoprolol Tartrate 25 MG Tablet PO SCH ×2 (08:42→20:01)
[2018-10-03] MEDS: Sodium Chloride 0.9% 2 ML Flush BID IV.FLUSH SCH ×2 (08:43→20:02)
--- NOTE | 2018-10-03 09:50 | P.PNNP ---
Subjective Interval history: No acute events overnight, flat affect. Creatinine slightly more elevated at 2.94, Potassium level at 5.5. <Debbie Godinez - Last Filed: 10/03/18 09:46> Physical Exam Vital signs: Vital Signs 10/02/18 12:00 10/02/18 16:00 10/02/18 20:00 Temperature 97.4 F L 98 F 98.6 F Pulse Rate 74 82 88 Respiratory Rate 18 18 16 Blood Pressure 114/69 138/92 H 139/100 H Pulse Oximetry 98 96 95 10/03/18 00:00 10/03/18 08:00 Temperature 98.5 F 97.6 F Pulse Rate 77 82 Respiratory Rate 15 18 Blood Pressure 110/61 120/74 Pulse Oximetry 98 97 Intake & Output 10/02/18 10/03/18 10/03/18 18:59 06:59 18:59 Intake Total 1560 / 1560 320 / 320 Output Total 350 / 350 Balance 1560 / 1560 -30 / -30 Weight 60.1 kg Intake: Oral 1560 / 1560 320 / 320 Output: Urine 350 / 350 Other: # Voids 8 Date of Last Bowel Movement 10/02/18 # Bowel Movements 2 Narrative: GENERAL: Alert and oriented. SKIN: Warm and dry. NECK: Supple, trachea midline. No JVD. CARDIOVASCULAR: Regular rate and rhythm. Murmur. Right IJ PermCath. RESPIRATORY: Breath sounds equal bilaterally. No accessory muscle use. GASTROINTESTINAL: Abdomen soft, non-tender. MUSCULOSKELETAL: No cyanosis, or edema. BACK: Nontender without obvious deformity. No CVA tenderness. <Debbie Godinez - Last Filed: 10/03/18 09:46> Vital signs: Vital Signs 10/04/18 00:00 10/04/18 03:56 10/04/18 08:00 Temperature 98.1 F 97.6 F Pulse Rate 75 84 Respiratory Rate 20 17 17 Blood Pressure 109/73 113/65 Pulse Oximetry 95 98 Pulse Oximetry [Exertion on Room Air] Pulse Oximetry [Resting on Room Air] 10/04/18 12:00 10/04/18 15:29 10/04/18 15:45 Temperature 98.0 F Pulse Rate 80 Respiratory Rate 17 Blood Pressure 112/74 Pulse Oximetry 98 95 Pulse Oximetry [Exertion on Room Air] 95 Pulse Oximetry [Resting on Room Air] 98 10/04/18 16:00 Temperature 97.3 F L Pulse Rate 72 Respiratory Rate 17 Blood Pressure 127/81 Pulse Oximetry 94 L Pulse Oximetry [Exertion on Room Air] Pulse Oximetry [Resting on Room Air] Intake & Output 10/04/18 10/04/18 10/05/18 06:59 18:59 06:59 Intake Total 828 / 828 1000 / 1000 Balance 828 / 828 1000 / 1000 Weight 58.2 kg Intake: Oral 828 / 828 1000 / 1000 Other: # Voids 3 6 Date of Last Bowel Movement 10/04/18 # Bowel Movements 1 <Bhargav Monge - Last Filed: 10/04/18 20:48> Assessment and Plan - Assessment (1) Acute kidney injury Code(s): N17.9 - Acute kidney failure, unspecified Status: Acute Plan: Acute kidney injury requiring hemodialysis. 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 Last HD on 09/08 Volume status stable. Avoid nephrotoxins. Recommend to continue low potassium diet. Potassium level at 5.5, Kayexalate ordered Fluids encouraged. Creatinine slightly more elevated at 2.90, non oliguric. Plan was to remove perma cath today however with increase in creatinine and hyperkalemia will leave in for today. Labs in AM. (2) Endocarditis Code(s): I38 - Endocarditis, valve unspecified Status: Acute Qualifiers: Endocarditis type: infective Infective endocarditis organism: bacterial Chronicity: acute Qualified Code(s): I33.0 - Acute and subacute infective endocarditis Plan: Antibiotics completed. <Debbie Godinez - Last Filed: 10/03/18 09:46> - Assessment (1) Acute kidney injury Code(s): N17.9 - Acute kidney failure, unspecified Status: Acute Plan: Patient seen and examined, agree with above. Creatinine increase slightly, 2.9. Encourage oral intake. If Creatinine better, will D/C PermCath. (2) Endocarditis Code(s): I38 - Endocarditis, valve unspecified Status: Acute Qualifiers: Endocarditis type: infective Infective endocarditis organism: bacterial Chronicity: acute Qualified Code(s): I33.0 - Acute and subacute infective endocarditis <Bhargav Monge - Last Filed: 10/04/18 20:48>
[2018-10-03] MEDS ORDERED: Sodium Polystyrene Sulfonate/Sorbitol Liq 15 GM/60 ML UDC PO ONE (10:00)
--- NOTE | 2018-10-03 15:14 | P.PNIM ---
Subjective Interval history: 12-1 Patient is sitting upright in bed. She does not have any significant complaints this morning. 12-2 HOPEFULLY TAKE DIALYSIS ACCESS OUT TOMORROW AM LABS NOT VERY INTERACTIVE DURING MY EXAM NO NEW COMPLAINTS DW RN AND PT AND CM 12-3 RENAL FUNCTIONS ARE WORSE HD CATH NOT REMOVED YET NEEDS TO DO WALK TEST DW RN AND PT AND CM Physical Exam Vital signs: Vital Signs 10/02/18 16:00 10/02/18 20:00 10/03/18 00:00 Temperature 98 F 98.6 F 98.5 F Pulse Rate 82 88 77 Respiratory Rate 18 16 15 Blood Pressure 138/92 H 139/100 H 110/61 Pulse Oximetry 96 95 98 10/03/18 08:00 10/03/18 12:00 10/03/18 12:15 Temperature 97.6 F 98.1 F Pulse Rate 82 79 Respiratory Rate 16 18 18 Blood Pressure 120/74 102/72 Pulse Oximetry 97 98 Intake & Output 10/02/18 10/03/18 10/03/18 18:59 06:59 18:59 Intake Total 1560 / 1560 320 / 320 Output Total 350 / 350 Balance 1560 / 1560 -30 / -30 Weight 60.1 kg Intake: Oral 1560 / 1560 320 / 320 Output: Urine 350 / 350 Other: # Voids 8 Date of Last Bowel Movement 10/02/18 10/02/18 # Bowel Movements 2 Narrative: GENERAL: Alert and oriented. SKIN: Warm and dry. NECK: Supple, trachea midline. No JVD. CARDIOVASCULAR: Regular rate and rhythm. Murmur. Right IJ PermCath. RESPIRATORY: Breath sounds equal bilaterally. No accessory muscle use. GASTROINTESTINAL: Abdomen soft, non-tender. MUSCULOSKELETAL: No cyanosis, or edema. BACK: Nontender without obvious deformity. No CVA tenderness. Results - Labs CBC & Chem 7: 09/19/18 06:00 10/03/18 05:56 Laboratory Results - last 24 hr 10/03/18 05:56 Sodium 133 L Potassium 5.5 H Chloride 103 Carbon Dioxide 21.7 Anion Gap 8 BUN 78 H Creatinine 2.94 H Estimated GFR 19 L Random Glucose 75 Calcium 9.3 - Procedures RIGHT IJ PERMCATH Assessment and Plan - Assessment (1) IV drug abuse Code(s): F19.10 - Other psychoactive substance abuse, uncomplicated Status: Acute (2) Endocarditis Code(s): I38 - Endocarditis, valve unspecified Status: Acute (3) Sepsis Code(s): A41.9 - Sepsis, unspecified organism Status: Resolved (4) End-stage renal disease (ESRD) Code(s): N18.6 - End stage renal disease Status: Acute (5) Ascites Code(s): R18.8 - Other ascites Status: Acute (6) Acute kidney injury Code(s): N17.9 - Acute kidney failure, unspecified Status: Acute - Plan Patient is a 28-year-old female with a history of IV drug use. She was admitted previously in May for MSSA septicemia however left AGAINST MEDICAL ADVICE during that admission. As per Dr. mitchell the patient was also seen at [facility] after that incidence and also left AGAINST MEDICAL ADVICE. The patient is now admitted and being treated for suspected MSSA septicemia with suspicion for endocarditis. 10/01/2018 No significant change in the patient's management as of today. Nephrology is following the patient for acute kidney injury as the patient was previously on hemodialysis, last hemodialysis was on 09/08/2018. Creatinine is 2.6 as of today, continues to downtrend. Potassium 5.5. Patient started on Veltassa as per nephrology. If the patient's creatinine continues to improve the plan is to remove the permacath on Wednesday. I will continue to follow-up with nephrology further recommendations. Case discussed with case management, we are awaiting clearance from nephrology in order to discharge the patient. 12-2 NEEDS HD ACCESS REMOVED BEFORE DISCHARGE NEEDS TO BE OFF OXYGEN SUSPECT WILL RETURN TO IVDA OR DRUG ABUSE AT [place] 12-3 STILL HAS HD CATHETER NEEDS WALK TEST 1. Acute kidney injury previously on hemodialysis, last hemodialysis was 2017. 2. MSSA septicemia with Endocarditis 3. Acute hypoxic respiratory failure Patient completed her treatment for MSSA septicemia with endocarditis. Patient has acute kidney injury and was on hemodialysis initially during the hospitalization. We will believe the patient's acute kidney injury developed from possible septic emboli/glomerular nephritis. Her last hemodialysis session was on 09/08. Patient not in fluid overload. Chest xray from yesterday shows small right lower lobe infiltrate/effusion. No cough from the patient and she is now on room air. We will ambulate the patient today to see if she desaturates while ambulating. Nephrology is following the patient. Creatinine is around 3.1 today. 4. History of IV drug use Patient was counseled on the risks of IV drug use. Patient was advised to stop. SUSPECT WILL RESTART WHEN SHE LEAVES 5. Anxiety Continue Xanax as needed. Patient is ambulatory. No pharmacotherapy for DVT prophylaxis. Code Status: FULL CODE Discussed Condition With: RN AND PT AND CM Discharge Planning: ONCE CLEARED BY NEPHROLOGY AND OTHERS (2) Endocarditis Qualifiers: Endocarditis type: infective Infective endocarditis organism: bacterial Chronicity: acute Qualified Code(s): I33.0 - Acute and subacute infective endocarditis (5) Ascites Qualifiers: Ascites type: other type Qualified Code(s): R18.8 - Other ascites
[2018-10-03] MEDS: QUEtiapine 25 MG Tablet PO SCH (20:01)
[2018-10-04] MEDS: ALPRAZolam 0.25 MG Tablet PO PRN ×3 (03:27→20:31)
[2018-10-04 05:53] LABS: Baso # (Auto) 0.1 th/mm3 (0.0-0.2); Eos # (Auto) 0.1 th/mm3 (0.0-0.4); Eos % (Auto) 1.8 % (0.0-4.0); Hematocrit 31.9 % (35.0-46.0); Hemoglobin 10.1 gm/dL (11.6-15.3); Lymph # (Auto) 1.7 th/mm3 (1.0-4.8); Lymph % (Auto) 23.1 % (9.0-44.0); Mean Corpuscular HGB Conc 31.8 % (32.0-36.0); Mean Corpuscular Hemoglobin 26.5 pg (27.0-34.0); Mean Corpuscular Volume 83.3 fL (80.0-100.0); Mono # (Auto) 0.9 th/mm3 (0.0-0.9); Mono % (Auto) 12.2 % (0.0-8.0); Neut # (Auto) 4.5 th/mm3 (1.8-7.7); Neut % (Auto) 61.9 % (16.0-70.0); Platelet Count 243 th/mm3 (150-450); Red Blood Count 3.83 mil/mm3 (4.00-5.30); Red Cell Distribution Width 19.6 % (11.6-17.2); White Blood Count 7.2 th/mm3 (4.0-11.0)
[2018-10-04 06:22] LABS: Alanine Aminotransferase 13 U/L (10-53); Albumin 2.2 g/dL (3.4-5.0); Anion Gap 8 meq/L (5-15); Aspartate Aminotransferase 11 U/L (15-37); Blood Urea Nitrogen 75 mg/dL (7-18); Calcium 8.6 mg/dL (8.5-10.1); Carbon Dioxide 23.2 meq/L (21.0-32.0); Chloride 103 meq/L (98-107); Glomerular Filtration Rate 19 mL/min (>89); Glucose,Random 83 mg/dL (74-106); Magnesium 1.9 mg/dL (1.5-2.5); Potassium 5.1 meq/L (3.5-5.1); Sodium 134 meq/L (136-145)
[2018-10-04 06:24] LABS: Alkaline Phosphatase 184 U/L (45-117); Total Protein 7.8 g/dL (6.4-8.2)
[2018-10-04] MEDS: Sodium Chloride 0.9% 2 ML Flush BID IV.FLUSH SCH ×2 (08:02→20:34)
[2018-10-04] MEDS: Famotidine 20 MG Tablet PO SCH ×2 (08:02→20:31)
[2018-10-04] MEDS: FLUoxetine 10 MG Capsule PO SCH (08:02)
[2018-10-04] MEDS: Metoprolol Tartrate 25 MG Tablet PO SCH ×2 (08:02→20:32)
--- NOTE | 2018-10-04 09:54 | P.PNNP ---
Subjective Interval history: Patient is resting with no acute events overnight. Creatinine at stable 2.91 today. <Debbie Godinez - Last Filed: 10/04/18 15:39> Physical Exam Vital signs: Vital Signs 10/03/18 12:00 10/03/18 12:15 10/03/18 16:00 Temperature 98.1 F 98.4 F Pulse Rate 79 82 Respiratory Rate 18 18 16 Blood Pressure 102/72 122/81 Pulse Oximetry 98 95 10/03/18 17:06 10/03/18 17:57 10/03/18 20:00 Temperature 98.4 F Pulse Rate 86 Respiratory Rate 16 21 Blood Pressure 148/83 H Pulse Oximetry 98 98 10/03/18 20:31 10/04/18 00:00 10/04/18 03:56 Temperature 98.1 F Pulse Rate 75 Respiratory Rate 20 20 17 Blood Pressure 109/73 Pulse Oximetry 95 10/04/18 08:00 Temperature 97.6 F Pulse Rate 84 Respiratory Rate 17 Blood Pressure 113/65 Pulse Oximetry 98 Intake & Output 10/03/18 10/04/18 10/04/18 18:59 06:59 18:59 Intake Total 600 / 600 828 / 828 Balance 600 / 600 828 / 828 Weight 58.2 kg Intake: Oral 600 / 600 828 / 828 Other: # Voids 2 3 Date of Last Bowel Movement 10/02/18 10/04/18 Narrative: GENERAL: Alert and oriented. SKIN: Warm and dry. NECK: Supple, trachea midline. No JVD. CARDIOVASCULAR: Regular rate and rhythm. Murmur. Right IJ PermCath. RESPIRATORY: Breath sounds equal bilaterally. No accessory muscle use. GASTROINTESTINAL: Abdomen soft, non-tender. MUSCULOSKELETAL: No cyanosis, or edema. BACK: Nontender without obvious deformity. No CVA tenderness. <Debbie Godinez - Last Filed: 10/04/18 15:39> Vital signs: Vital Signs 10/04/18 20:00 10/05/18 00:00 10/05/18 04:00 Temperature 99.1 F 98.9 F 97.5 F L Pulse Rate 87 83 86 Respiratory Rate 15 15 16 Blood Pressure 128/90 109/66 128/93 H Pulse Oximetry 93 L 93 L 95 10/05/18 08:00 10/05/18 11:03 10/05/18 12:00 Temperature 97.7 F 99.7 F H Pulse Rate 85 82 Respiratory Rate 18 18 Blood Pressure 120/77 122/84 Pulse Oximetry 93 L 94 L 10/05/18 15:26 10/05/18 15:30 10/05/18 15:45 Temperature 98.2 F 98.3 F Pulse Rate 92 H 90 Respiratory Rate 18 18 Blood Pressure 135/88 130/89 Pulse Oximetry 94 L 96 10/05/18 16:00 10/05/18 16:15 10/05/18 16:45 Temperature Pulse Rate 88 88 98 H Respiratory Rate 18 Blood Pressure 118/81 118/81 136/96 H Pulse Oximetry 100 100 Intake & Output 10/04/18 10/05/18 10/05/18 18:59 06:59 18:59 Intake Total 1000 / 1000 1200 / 1200 1240 / 1240 Balance 1000 / 1000 1200 / 1200 1240 / 1240 Weight 59.4 kg Intake: Oral 1000 / 1000 1200 / 1200 1240 / 1240 Other: # Voids 6 8 3 Date of Last Bowel Movement 10/04/18 10/04/18 10/04/18 # Bowel Movements 1 1 <Bhargav Monge - Last Filed: 10/05/18 18:18> Assessment and Plan - Assessment (1) Acute kidney injury Code(s): N17.9 - Acute kidney failure, unspecified Status: Acute Plan: Acute kidney injury requiring hemodialysis. 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 Last HD on 09/08 Volume status stable. Avoid nephrotoxins. Recommend to continue low potassium diet. Potassium level has improved at 5.1 Fluids encouraged. Creatinine stable at 2.91. Will remove permacath today Labs in AM (2) Endocarditis Code(s): I38 - Endocarditis, valve unspecified Status: Acute Qualifiers: Endocarditis type: infective Infective endocarditis organism: bacterial Chronicity: acute Qualified Code(s): I33.0 - Acute and subacute infective endocarditis Plan: Antibiotics completed. <Debbie Godinez - Last Filed: 10/04/18 15:39> - Assessment (1) Acute kidney injury Code(s): N17.9 - Acute kidney failure, unspecified Status: Acute Plan: Patient seen and examined, agree with above. Creatinine almost same. Non oliguric. (2) Endocarditis Code(s): I38 - Endocarditis, valve unspecified Status: Acute Qualifiers: Endocarditis type: infective Infective endocarditis organism: bacterial Chronicity: acute Qualified Code(s): I33.0 - Acute and subacute infective endocarditis <Bhargav Monge - Last Filed: 10/05/18 18:18>
--- NOTE | 2018-10-04 12:37 | P.PNIM ---
Subjective Interval history: 12-1 Patient is sitting upright in bed. She does not have any significant complaints this morning. 12-2 HOPEFULLY TAKE DIALYSIS ACCESS OUT TOMORROW AM LABS NOT VERY INTERACTIVE DURING MY EXAM NO NEW COMPLAINTS DW RN AND PT AND CM 12-3 RENAL FUNCTIONS ARE WORSE HD CATH NOT REMOVED YET NEEDS TO DO WALK TEST DW RN AND PT AND CM 12-4 HAS NOT DONE WALK TEST- KEEPS REFUSING HAS PERSONALITY DISORDER MUCH MORE ALERT AND TALKATIVE- NOT VERY COOPERATIVE DW RN AND PT AND CM NEEDS HD CATHETER DCED BEFORE DISCHARGE Physical Exam Vital signs: Vital Signs 10/03/18 16:00 10/03/18 17:06 10/03/18 17:57 Temperature 98.4 F Pulse Rate 82 Respiratory Rate 16 16 Blood Pressure 122/81 Pulse Oximetry 95 98 10/03/18 20:00 10/03/18 20:31 10/04/18 00:00 Temperature 98.4 F 98.1 F Pulse Rate 86 75 Respiratory Rate 21 20 20 Blood Pressure 148/83 H 109/73 Pulse Oximetry 98 95 10/04/18 03:56 10/04/18 08:00 Temperature 97.6 F Pulse Rate 84 Respiratory Rate 17 17 Blood Pressure 113/65 Pulse Oximetry 98 Intake & Output 10/03/18 10/04/18 10/04/18 18:59 06:59 18:59 Intake Total 600 / 600 828 / 828 Balance 600 / 600 828 / 828 Weight 58.2 kg Intake: Oral 600 / 600 828 / 828 Other: # Voids 2 3 Date of Last Bowel Movement 10/02/18 10/04/18 Narrative: GENERAL: Alert and oriented. SKIN: Warm and dry. NECK: Supple, trachea midline. No JVD. CARDIOVASCULAR: Regular rate and rhythm. Murmur. Right IJ PermCath. RESPIRATORY: Breath sounds equal bilaterally. No accessory muscle use. GASTROINTESTINAL: Abdomen soft, non-tender. MUSCULOSKELETAL: No cyanosis, or edema. BACK: Nontender without obvious deformity. No CVA tenderness. Results - Labs CBC & Chem 7: 10/04/18 05:19 10/04/18 05:19 Laboratory Results - last 24 hr 10/04/18 10/04/18 05:19 05:19 WBC 7.2 RBC 3.83 L Hgb 10.1 L Hct 31.9 L MCV 83.3 MCH 26.5 L MCHC 31.8 L RDW 19.6 H Plt Count 243 MPV 7.0 Neut % (Auto) 61.9 Lymph % (Auto) 23.1 [place] % (Auto) 12.2 H Eos % (Auto) 1.8 Baso % (Auto) 1.0 Neut # (Auto) 4.5 Lymph # (Auto) 1.7 [place] # (Auto) 0.9 Eos # (Auto) 0.1 Baso # (Auto) 0.1 WBC Differential . Differential Comment Auto diff final Sodium 134 L Potassium 5.1 Chloride 103 Carbon Dioxide 23.2 Anion Gap 8 BUN 75 H Creatinine 2.91 H Estimated GFR 19 L Random Glucose 83 Calcium 8.6 Phosphorus 4.0 Magnesium 1.9 Total Bilirubin 0.6 AST 11 L ALT 13 Alkaline Phosphatase 184 H Total Protein 7.8 Albumin 2.2 L - Imaging ITS Impressions Abdomen/Pelvis CT 07/13/18 20:07 CONCLUSION: 1. Bibasilar patchy airspace disease and minimal pleural fluid. 2. Moderate amount of diffuse ascites as well as anasarca. 3. Nonobstructive bowel gas pattern with poor delineation of the bowel secondary to anasarca, lack of intravenous and oral contrast. 4. Cardiomegaly. Catheter Placement 07/28/18 00:00 CONCLUSION: 1. Uncomplicated tunneled dialysis catheter placement as above. Central Venous Line 08/01/18 00:00 CONCLUSION: 1. Uncomplicated PermaCath placement as above. Venous Access Device Injection 08/01/18 00:00 CONCLUSION: 1. Intact dialysis catheter. There is a kink in the catheter and it is to be replaced. Paracentesis Ultrasound 09/08/18 00:00 CONCLUSION: 1. Uncomplicated paracentesis. Abdomen Ultrasound 09/15/18 00:00 CONCLUSION: Small amount of free fluid in the abdomen, insufficient for paracentesis. Chest X-Ray 09/28/18 00:00 CONCLUSION: 1. Right basilar patchiness consistent with atelectasis and/or infiltrate. 2. Cardiomegaly. - Procedures RIGHT IJ PERMCATH Assessment and Plan - Assessment (1) IV drug abuse Code(s): F19.10 - Other psychoactive substance abuse, uncomplicated Status: Acute (2) Endocarditis Code(s): I38 - Endocarditis, valve unspecified Status: Acute (3) Sepsis Code(s): A41.9 - Sepsis, unspecified organism Status: Resolved (4) End-stage renal disease (ESRD) Code(s): N18.6 - End stage renal disease Status: Acute (5) Ascites Code(s): R18.8 - Other ascites Status: Acute (6) Acute kidney injury Code(s): N17.9 - Acute kidney failure, unspecified Status: Acute - Plan Patient is a 28-year-old female with a history of IV drug use. She was admitted previously in May for MSSA septicemia however left AGAINST MEDICAL ADVICE during that admission. As per Dr. mitchell the patient was also seen at [facility] after that incidence and also left AGAINST MEDICAL ADVICE. The patient is now admitted and being treated for suspected MSSA septicemia with suspicion for endocarditis. 10/01/2018 No significant change in the patient's management as of today. Nephrology is following the patient for acute kidney injury as the patient was previously on hemodialysis, last hemodialysis was on 09/08/2018. Creatinine is 2.6 as of today, continues to downtrend. Potassium 5.5. Patient started on Veltassa as per nephrology. If the patient's creatinine continues to improve the plan is to remove the permacath on Wednesday. I will continue to follow-up with nephrology further recommendations. Case discussed with case management, we are awaiting clearance from nephrology in order to discharge the patient. 12-2 NEEDS HD ACCESS REMOVED BEFORE DISCHARGE NEEDS TO BE OFF OXYGEN SUSPECT WILL RETURN TO IVDA OR DRUG ABUSE AT MD 12-3 STILL HAS HD CATHETER NEEDS WALK TEST 12-4 REFUSING WALK TEST STILL HAS HD CATHETER IN PLACE 1. Acute kidney injury previously on hemodialysis, last hemodialysis was 2017. 2. MSSA septicemia with Endocarditis 3. Acute hypoxic respiratory failure Patient completed her treatment for MSSA septicemia with endocarditis. Patient has acute kidney injury and was on hemodialysis initially during the hospitalization. We will believe the patient's acute kidney injury developed from possible septic emboli/glomerular nephritis. Her last hemodialysis session was on 09/08. Patient not in fluid overload. Chest xray from yesterday shows small right lower lobe infiltrate/effusion. No cough from the patient and she is now on room air. We will ambulate the patient today to see if she desaturates while ambulating. Nephrology is following the patient. Creatinine is around 2.9 today. 4. History of IV drug use Patient was counseled on the risks of IV drug use. Patient was advised to stop. SUSPECT WILL RESTART WHEN SHE LEAVES 5. Anxiety Continue Xanax as needed. Patient is ambulatory. No pharmacotherapy for DVT prophylaxis. Code Status: FULL CODE Discussed Condition With: RN AND PT AND CM Discharge Planning: ONCE CLEARED BY NEPHROLOGY AND OTHERS (2) Endocarditis Qualifiers: Endocarditis type: infective Infective endocarditis organism: bacterial Chronicity: acute Qualified Code(s): I33.0 - Acute and subacute infective endocarditis (5) Ascites Qualifiers: Ascites type: other type Qualified Code(s): R18.8 - Other ascites
[2018-10-04] MEDS: QUEtiapine 25 MG Tablet PO SCH (20:33)
[2018-10-05] MEDS: ALPRAZolam 0.25 MG Tablet PO PRN ×3 (06:34→22:53)
[2018-10-05 07:39] LABS: Baso % (Auto) 0.6 % (0.0-2.0); Eos # (Auto) 0.1 th/mm3 (0.0-0.4); Eos % (Auto) 1.2 % (0.0-4.0); Hematocrit 33.3 % (35.0-46.0); Hemoglobin 10.7 gm/dL (11.6-15.3); Lymph # (Auto) 1.7 th/mm3 (1.0-4.8); Lymph % (Auto) 22.9 % (9.0-44.0); Mean Corpuscular HGB Conc 32.3 % (32.0-36.0); Mean Corpuscular Hemoglobin 27.4 pg (27.0-34.0); Mean Corpuscular Volume 84.8 fL (80.0-100.0); Mono # (Auto) 0.7 th/mm3 (0.0-0.9); Neut # (Auto) 4.9 th/mm3 (1.8-7.7); Neut % (Auto) 66.3 % (16.0-70.0); Platelet Count 219 th/mm3 (150-450); Red Blood Count 3.93 mil/mm3 (4.00-5.30); Red Cell Distribution Width 19.9 % (11.6-17.2); White Blood Count 7.4 th/mm3 (4.0-11.0)
[2018-10-05 08:01] LABS: Albumin 2.4 g/dL (3.4-5.0); Anion Gap 10 meq/L (5-15); Aspartate Aminotransferase 17 U/L (15-37); Blood Urea Nitrogen 74 mg/dL (7-18); Calcium 9.1 mg/dL (8.5-10.1); Carbon Dioxide 21.3 meq/L (21.0-32.0); Chloride 99 meq/L (98-107); Glomerular Filtration Rate 21 mL/min (>89); Glucose,Random 107 mg/dL (74-106); Magnesium 1.9 mg/dL (1.5-2.5); Potassium 4.9 meq/L (3.5-5.1); Sodium 130 meq/L (136-145)
[2018-10-05 08:09] LABS: Alanine Aminotransferase 15 U/L (10-53); Alkaline Phosphatase 184 U/L (45-117); Phosphorus 2.8 mg/dL (2.5-4.9); Total Protein 8.4 g/dL (6.4-8.2)
[2018-10-05] MEDS: Famotidine 20 MG Tablet PO SCH ×2 (08:53→22:16)
[2018-10-05] MEDS: FLUoxetine 10 MG Capsule PO SCH (08:53)
[2018-10-05] MEDS: Metoprolol Tartrate 25 MG Tablet PO SCH ×2 (08:54→22:15)
[2018-10-05] MEDS: Sodium Chloride 0.9% 2 ML Flush BID IV.FLUSH SCH ×2 (08:55→22:14)
--- NOTE | 2018-10-05 11:33 | P.PNNP ---
Subjective Interval history: Plan for perma cath removal today. Creatinine has improved some at 2.73 and potassium level at 4.9. <Debbie Godinez - Last Filed: 10/05/18 16:02> Physical Exam Vital signs: Vital Signs 10/04/18 12:00 10/04/18 15:29 10/04/18 15:45 Temperature 98.0 F Pulse Rate 80 Respiratory Rate 17 Blood Pressure 112/74 Pulse Oximetry 98 95 Pulse Oximetry [Exertion on Room Air] 95 Pulse Oximetry [Resting on Room Air] 98 10/04/18 16:00 10/04/18 20:00 10/05/18 00:00 Temperature 97.3 F L 99.1 F 98.9 F Pulse Rate 72 87 83 Respiratory Rate 17 15 15 Blood Pressure 127/81 128/90 109/66 Pulse Oximetry 94 L 93 L 93 L Pulse Oximetry [Exertion on Room Air] Pulse Oximetry [Resting on Room Air] 10/05/18 04:00 10/05/18 08:00 Temperature 97.5 F L 97.7 F Pulse Rate 86 85 Respiratory Rate 16 18 Blood Pressure 128/93 H 120/77 Pulse Oximetry 95 93 L Pulse Oximetry [Exertion on Room Air] Pulse Oximetry [Resting on Room Air] Intake & Output 10/04/18 10/05/18 10/05/18 18:59 06:59 18:59 Intake Total 1000 / 1000 1200 / 1200 Balance 1000 / 1000 1200 / 1200 Weight 59.4 kg Intake: Oral 1000 / 1000 1200 / 1200 Other: # Voids 6 8 Date of Last Bowel Movement 10/04/18 10/04/18 10/04/18 # Bowel Movements 1 Narrative: GENERAL: Alert and oriented. SKIN: Warm and dry. NECK: Supple, trachea midline. No JVD. CARDIOVASCULAR: Regular rate and rhythm. Murmur. Right IJ PermCath. RESPIRATORY: Breath sounds equal bilaterally. No accessory muscle use. GASTROINTESTINAL: Abdomen soft, non-tender. MUSCULOSKELETAL: No cyanosis, or edema. BACK: Nontender without obvious deformity. No CVA tenderness. <Debbie Godinez - Last Filed: 10/05/18 16:02> Vital signs: Vital Signs 10/04/18 20:00 10/05/18 00:00 10/05/18 04:00 Temperature 99.1 F 98.9 F 97.5 F L Pulse Rate 87 83 86 Respiratory Rate 15 15 16 Blood Pressure 128/90 109/66 128/93 H Pulse Oximetry 93 L 93 L 95 10/05/18 08:00 10/05/18 11:03 10/05/18 12:00 Temperature 97.7 F 99.7 F H Pulse Rate 85 82 Respiratory Rate 18 18 18 Blood Pressure 120/77 122/84 Pulse Oximetry 93 L 94 L 10/05/18 15:26 10/05/18 15:30 10/05/18 15:45 Temperature 98.2 F 98.3 F Pulse Rate 92 H 90 Respiratory Rate 18 18 18 Blood Pressure 135/88 130/89 Pulse Oximetry 94 L 96 10/05/18 16:00 10/05/18 16:15 10/05/18 16:45 Temperature Pulse Rate 88 88 98 H Respiratory Rate 18 18 Blood Pressure 118/81 118/81 136/96 H Pulse Oximetry 100 100 Intake & Output 10/04/18 10/05/18 10/05/18 18:59 06:59 18:59 Intake Total 1000 / 1000 1200 / 1200 1240 / 1240 Balance 1000 / 1000 1200 / 1200 1240 / 1240 Weight 59.4 kg Intake: Oral 1000 / 1000 1200 / 1200 1240 / 1240 Other: # Voids 6 8 3 Date of Last Bowel Movement 10/04/18 10/04/18 10/04/18 # Bowel Movements 1 1 <Keke Monge Q - Last Filed: 10/05/18 18:44> Assessment and Plan - Assessment (1) Acute kidney injury Code(s): N17.9 - Acute kidney failure, unspecified Status: Acute Plan: Acute kidney injury requiring hemodialysis. 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 Last HD on 09/08 Volume status stable. Avoid nephrotoxins. Recommend to continue low potassium diet. Potassium level has improved at 4.9 Creatinine at 2.73, plan for perma cath removal today From Nephrology stand point patient can be discharged. Will need to follow up outpatient with Nephrology. Potassium levels will need to be monitored carefully. (2) Endocarditis Code(s): I38 - Endocarditis, valve unspecified Status: Acute Qualifiers: Endocarditis type: infective Infective endocarditis organism: bacterial Chronicity: acute Qualified Code(s): I33.0 - Acute and subacute infective endocarditis Plan: Antibiotics completed. - Plan Patient with sepsis, bacteremia and develop TED. Non oliguric, Creatinine slightly better yesterday 3.1. Continue to hold HD for now. If Creatinine continue to improve, will D/C Vascath. <Debbie Godinez - Last Filed: 10/05/18 16:02> - Assessment (1) Acute kidney injury Code(s): N17.9 - Acute kidney failure, unspecified Status: Acute Plan: Patient seen and examined, agree with above. K is normal, and Creatinine is slightly better. D/C PermCath and can be discharged from Nephrology with out patient follow up. (2) Endocarditis Code(s): I38 - Endocarditis, valve unspecified Status: Acute Qualifiers: Endocarditis type: infective Infective endocarditis organism: bacterial Chronicity: acute Qualified Code(s): I33.0 - Acute and subacute infective endocarditis <Bhargav Monge - Last Filed: 10/05/18 18:44>
[2018-10-05] MEDS ORDERED: Lidocaine 1%/Epinephrine 1:100,000 Inj 30 ML Vial ONE (14:05)
--- NOTE | 2018-10-05 14:54 | P.RAD ---
Post Procedure Progress Note - Procedure Information Procedure Date: 10/05/18 Supervising Radiologist: JOSEPH Fragoso Assisting Physician: Brendon Todd Estimated blood loss (mL): 2 Anesthesia: Local - Plan of Activity Patient to Unit: Nursing Unit Patient Condition: Good Additional Comments: PERM CATH WAS SUCCESSFULLY REMOVED WITHOUT ANY COMPLICATIONS OR DIFFICULTY. PATIENT TOLERATED THE PROCEDURE WELL. See PACS Report for procedural detail/treatment.
--- NOTE | 2018-10-05 16:23 | P.PNIM ---
Subjective Interval history: Reports that permacath has not been removed by radiology. Reports no shortness of breath. Looking forward to going home. Physical Exam Vital signs: Last Vital Signs Temp 98.3 F 10/05/18 15:45 Pulse 90 10/05/18 15:45 Resp 18 10/05/18 15:45 BP 130/89 10/05/18 15:45 Pulse Ox 96 10/05/18 15:45 Intake & Output 10/03/18 10/04/18 10/05/18 10/06/18 06:59 06:59 06:59 06:59 Intake Total 1880 / 1880 1428 / 1428 2200 / 2200 Output Total 350 / 350 Balance 1530 / 1530 1428 / 1428 2200 / 2200 Weight 60.1 kg 58.2 kg 59.4 kg Narrative: GENERAL: Alert and oriented. CARDIOVASCULAR: Regular rate and rhythm. With a 2 out of 6 heart murmur. Right IJ PermCath in place. RESPIRATORY: Breath sounds equal bilaterally. No accessory muscle use. GASTROINTESTINAL: Abdomen soft, non-tender. MUSCULOSKELETAL: No cyanosis, or edema. BACK: Nontender without obvious deformity. No CVA tenderness. Results Labs CBC & Chem 7: 10/05/18 07:07 10/05/18 07:07 Procedures Procedures: RIGHT IJ PERMCATH Paracentesis 07/17 with 2.1L removed paracentesis 08/11 with 2.8 L. Assessment and Plan (1) Acute kidney injury: Code(s): N17.9 - Acute kidney failure, unspecified Status: Acute (2) Endocarditis: Code(s): I38 - Endocarditis, valve unspecified Status: Acute Plan 28-year-old female with infective tricuspid valve endocarditis and multiorgan dysfunction secondary to endocarditis. Infective tricuspid valve endocarditis Moderate tricuspid valve regurgitation Mixed septic and cardiogenic shock secondary to infective endocarditis- resolving. Bedside echo shows large tricuspid regurgitation with moderate to severe TR With noncompliance and multiple AMA discharges, Not a candidate for valve replacement until she can complete antibiotic therapy and demonstrate medical compliance by not leaving AMA. -Per ID patient, completed Ancef for MSSA on 08/14 Sinus tachycardia Heart rate improved, . Continue metoprolol Acute kidney failure/injury with last dialysis September 18 -Patient came with outside hospital dialysis access in place and had hemodialysis with renal service until September 18. -Perm cath will be removed by interventional radiology today as patient has had hemodialysis on hold and producing adequate urine output. Creatinine has been stable and has improved since admission. Lasix on hold tricuspid regurgitation. Seen on outside echo BNP above 5000 (07/21), obviously affected by renal failure. Ascites is likely secondary CHF. On metoprolol Ascites Secondary to severe renal injury and suspected CHF Paracentesis 07/17 with 2.1L removed paracentesis 08/11 with 2.8 L. -Stable, Hyperkalemia resolved IV drug dependence -prn oxycodone to prevent withdrawal Depressed, likely situational Anxious -Psych attempted to evaluate 08/21, patient refused to speak to them. Re-evaluated on 08/23 and provided psychosocial education and support for her anxiety and depression. -Continue Xanax 0.125 mg p.o. every 8 as needed for anxiety -Continue Prozac and Seroquel GI Prophylaxis-pepcid DVT Prophylaxis - SCDs Discharge Planning: Discharge planning for a.m. Progress Note: Quality VTE Deep Vein Thrombosis/Pulmonary Embolism Present on Admission: Yes _ (1) Endocarditis Qualifiers: Chronicity: acute Endocarditis type: infective Infective endocarditis organism: bacterial Qualified Code(s): I33.0 - Acute and subacute infective endocarditis
--- NOTE | 2018-10-05 16:34 | IR ---
EXAM DATE: 10/05/2018 2:59 PM EST AGE/SEX: 28 years / Female INDICATIONS: Patient presents with a history of endocarditis and renal disease in need of dialysis c atheter removal that is no longer needed. CLINICAL DATA: This is the patient's subsequent encounter. Patient reports that signs and symptoms h ave been present for 3 months and indicates a pain score of 0/10. MEDICAL/SURGICAL HISTORY: . Endocarditis, Substance abuse, Asthma, Cholecystitis, History of re nal disease, Substance abuse. . None. COMPARISON: No prior exams available for comparison. IMAGE SERIES: 0 ACCESS SITE: . . PROCEDURE: 1. PermaCath removal. The risks, benefits and alternatives to the procedure were explained and verbal and written consent w as obtained. The site was prepped in sterile fashion. Full sterile technique was used, including ca p, mask, sterile gloves and gown and a large sterile sheet. Hand hygiene and 2% chlorhexidine and/or betadine/alcohol prep was utilized per protocol for cutaneous antisepsis. The skin and subcutaneous tissues were infiltrated with local anesthetic solution. The tract was anesthetized with 1% Lidocaine using. The Permcath was dissected from the subcutaneous tissues and easily removed in one piece. Manual pressure was applied to the venotomy site until hem ostasis was obtained. Sterile dressing was applied. The patient tolerated the procedure well and there were no complications. CONCLUSION: 1. Uncomplicated Permcath removal. Electronically signed by: Brendon Todd MD 10/05/2018 4:33 PM EST
[2018-10-05] MEDS: QUEtiapine 25 MG Tablet PO SCH (22:15)
[2018-10-06 07:36] LABS: Albumin 2.2 g/dL (3.4-5.0); Carbon Dioxide 20.2 meq/L (21.0-32.0); Phosphorus 3.2 mg/dL (2.5-4.9); Potassium 4.6 meq/L (3.5-5.1)
[2018-10-06] MEDS: ALPRAZolam 0.25 MG Tablet PO PRN (07:55)
[2018-10-06 09:02] VITALS: RESP 16
[2018-10-06] MEDS: FLUoxetine 10 MG Capsule PO SCH (10:10)
[2018-10-06] MEDS: Famotidine 20 MG Tablet PO SCH (10:10)
[2018-10-06] MEDS: Metoprolol Tartrate 25 MG Tablet PO SCH (10:11)
[2018-10-06] MEDS: Sodium Chloride 0.9% 2 ML Flush BID IV.FLUSH SCH (10:11)
--- NOTE | 2018-10-06 10:15 | P.PNIM ---
Subjective Interval history: No shortness of breath. Breathing okay. Physical Exam Vital signs: Last Vital Signs Temp 98.3 F 10/05/18 15:45 Pulse 90 10/05/18 15:45 Resp 18 10/05/18 15:45 BP 130/89 10/05/18 15:45 Pulse Ox 96 10/05/18 15:45 Intake & Output 10/03/18 10/04/18 10/05/18 10/06/18 06:59 06:59 06:59 06:59 Intake Total 1880 / 1880 1428 / 1428 2200 / 2200 Output Total 350 / 350 Balance 1530 / 1530 1428 / 1428 2200 / 2200 Weight 60.1 kg 58.2 kg 59.4 kg Narrative: GENERAL: Alert and oriented, well-nourished well-developed white male in no acute distress. CARDIOVASCULAR: Regular rate and rhythm. With a 2 out of 6 heart murmur. Right IJ PermCath in place. RESPIRATORY: Breath sounds equal bilaterally. No accessory muscle use. GASTROINTESTINAL: Abdomen soft, non-tender. MUSCULOSKELETAL: No cyanosis, or edema. Results Labs CBC & Chem 7: 10/05/18 07:07 10/06/18 06:34 Procedures Procedures: RIGHT IJ PERMCATH Paracentesis 07/17 with 2.1L removed paracentesis 08/11 with 2.8 L. Assessment and Plan (1) Acute kidney injury: Code(s): N17.9 - Acute kidney failure, unspecified Status: Acute (2) Endocarditis: Code(s): I38 - Endocarditis, valve unspecified Status: Acute Plan 28-year-old female with infective tricuspid valve endocarditis and multiorgan dysfunction secondary to endocarditis. Infective tricuspid valve endocarditis Moderate tricuspid valve regurgitation Mixed septic and cardiogenic shock secondary to infective endocarditis- resolving. Bedside echo shows large tricuspid regurgitation with moderate to severe TR With noncompliance and multiple AMA discharges, Not a candidate for valve replacement until she can complete antibiotic therapy and demonstrate medical compliance by not leaving AMA. -Per ID patient, completed Ancef for MSSA on 08/14 Sinus tachycardia Heart rate improved, . Continue metoprolol Acute kidney failure/injury with last dialysis September 18 -Patient came with outside hospital dialysis access in place and had hemodialysis with renal service until September 18. -Perm cath will be removed by interventional radiology today as patient has had hemodialysis on hold and producing adequate urine output. Creatinine has been stable and has improved since admission. Lasix on hold tricuspid regurgitation. Seen on outside echo BNP above 5000 (07/21), obviously affected by renal failure. Ascites is likely secondary CHF. On metoprolol Ascites Secondary to severe renal injury and suspected CHF Paracentesis 07/17 with 2.1L removed paracentesis 08/11 with 2.8 L. -Stable, Hyperkalemia resolved IV drug dependence -prn oxycodone to prevent withdrawal Depressed, likely situational Anxious -Psych attempted to evaluate 08/21, patient refused to speak to them. Re-evaluated on 08/23 and provided psychosocial education and support for her anxiety and depression. -Continue Xanax 0.125 mg p.o. every 8 as needed for anxiety -Continue Prozac and Seroquel GI Prophylaxis-pepcid DVT Prophylaxis - SCDs Discharge Planning: Discharge planning for a.m. Progress Note: Quality VTE Deep Vein Thrombosis/Pulmonary Embolism Present on Admission: Yes _ (1) Endocarditis Qualifiers: Chronicity: acute Endocarditis type: infective Infective endocarditis organism: bacterial Qualified Code(s): I33.0 - Acute and subacute infective endocarditis
--- NOTE | 2018-10-06 10:32 | P.DS ---
DS: Providers Date of admission: 07/13/18 20:34 Primary care physician: UNKNOWN Consults: 07/13/18 20:35 Consult to Palliative Care Routine Consulting Provider: Chace Benjamin Reason for Consultation: endocarditis with multiple repeat admissions, all leaving AMA. clinically declining with every admission. assistance with goals of care in the face of a rapidly deteriorating medical condition. Comments:: 19:00 left a msg for the call center to call back Ordering Provider: DELMAR 07/13/18 21:17 Consult to Nephrology Routine Consulting Provider: Bhargav Monge Does the patient have a Laborer Powerhouse who follows them?: No Preferred Nephrology Reinforcing Bar Setter:: Superintendent Gas Distribution Physician Reason for Consultation: acute renal failure at OSH, came with OSH vascath in place. Notified:: Service Spoke with:: Jin Date Notified:: 07/13/18 Time Notified:: 21:23 Ordering Provider: DELMAR 07/18/18 09:30 Consult to Infectious Diseases Routine Consulting Provider: Paty Trujillo Reason for Consultation: infective endocarditis Notified:: Service Spoke with:: [email or web address] Date Notified:: 07/18/18 Time Notified:: 10:11 Ordering Provider: VALE 08/20/18 11:38 Consult to Psychiatry Routine Consulting Provider: Domenico Damico Reason for Consultation: depressed, suicidal ideation Notified:: Service Spoke with:: PRIYA Date Notified:: 08/20/18 Time Notified:: 12:15 Comments:: Pt transferred to Dr Damico for f/u Ordering Provider: ROBERTO CARLOS Brief History from admission: This is a 28-year-old female who was recently admitted back in May for infective endocarditis of the tricuspid valve and septic shock. At that time she left AGAINST MEDICAL ADVICE. She then stated that she went to [facility] where she was admitted and was very ill for at least a month or so. She states that she had a breathing tube and was on life support for some time.. She also states that she has a pressure ulcer from that hospitalization. Most recently, she states that her kidneys have failed and she has a dialysis catheter in place in the right neck that she states was placed today. She did not like it at that facility so she states she left AMA to come back to our facility. She endorses fever, chills, chest pain, fatigue, malaise, rigors, shortness of breath. In the emergency department she was febrile. She has an elevated white blood cell count. She also has a creatinine of 5, sodium 131, potassium of 5.9, lactate greater than 3. DS: Diagnosis Discharge Diagnosis (1) Acute kidney injury: Status: Acute Diagnosis: Principal (2) Endocarditis: Status: Acute Diagnosis: Principal (3) Tricuspid regurgitation: Status: Chronic Diagnosis: Secondary (4) Adjustment disorder with mixed disturbance of emotions and conduct: Status: Acute Diagnosis: Secondary (5) Ascites: Status: Acute Diagnosis: Secondary (6) Hyperkalemia: Status: Resolved Diagnosis: Secondary DS: Summary 28-year-old white female presented for admission after she left AGAINST MEDICAL ADVICE from [facility] for diagnosis of septic shock with infective car endocarditis with severe tricuspid valve regurgitation and acute renal failure requiring hemodialysis. Due to patient's history of IV drug abuse and noncompliance and leaving AGAINST MEDICAL ADVICE from previous hospital, patient was deemed not a candidate for valve replacement until she can complete antibiotics and demonstrate compliance and drug rehab. He she completed Ancef for MSSA infection on August 14. She was seen by palliative care service to establish goals of the hospitalization. She was placed on metoprolol for her sinus tachycardia and moderate tricuspid regurgitation. She had acute renal failure which required hemodialysis until September 18 in which it was on hold to monitor creatinine improvement. Her diuretics was also on hold at this time. Her creatinine kidney function has improved and at this time nephrology has cleared her for discharge and permacath has been removed. She was weaned off of oxygen and satting at 96% on room air. She underwent paracentesis on July 17 and August 11 which improved her ascites. She was seen by psychiatry service who evaluated for her situational depression anxiety and recommended continuance of Xanax 0.125 mg every 8 hours as needed and Prozac and Seroquel. At this time, patient has gained maximum benefit from hospitalization and ready to be discharged to home. Time Spent with Patient Total time spent providing and/or coordinating discharge services: Less than 30 minutes Quality: VTE Deep Vein Thrombosis/Pulmonary Embolism Present on Admission: Yes Exam Narrative Exam Narrative: GENERAL: Well-nourished well-developed white female no acute distress SKIN: Warm and dry. CARDIOVASCULAR: Regular rate and rhythm with a 2 out of 6 systolic ejection murmur. RESPIRATORY: No accessory muscle use. Clear to auscultation. Breath sounds equal bilaterally. GASTROINTESTINAL: Abdomen soft, non-tender, slight distention, normoactive bowel sounds MUSCULOSKELETAL: Extremities without clubbing, cyanosis, or edema. No obvious deformities. NEUROLOGICAL: Awake and alert. No obvious cranial nerve deficits. Motor grossly within normal limits. Five out of 5 muscle strength in the arms and legs. Normal speech. Results Procedures completed during hospitalization: RIGHT IJ PERMCATH Paracentesis 07/17 with 2.1L removed paracentesis 08/11 with 2.8 L. Labs on day of discharge: Labs from last 24 hours 10/06/18 06:34 Sodium 131 L Potassium 4.6 Chloride 102 Carbon Dioxide 20.2 L Anion Gap 9 BUN 72 H Creatinine 2.84 H Estimated GFR 20 L Random Glucose 133 H Calcium 9.0 Phosphorus 3.2 Albumin 2.2 L Impressions ITS Impressions Abdomen/Pelvis CT 07/13/18 20:07 CONCLUSION: 1. Bibasilar patchy airspace disease and minimal pleural fluid. 2. Moderate amount of diffuse ascites as well as anasarca. 3. Nonobstructive bowel gas pattern with poor delineation of the bowel secondary to anasarca, lack of intravenous and oral contrast. 4. Cardiomegaly. Catheter Placement 07/28/18 00:00 CONCLUSION: 1. Uncomplicated tunneled dialysis catheter placement as above. Central Venous Line 08/01/18 00:00 CONCLUSION: 1. Uncomplicated PermaCath placement as above. Venous Access Device Injection 08/01/18 00:00 CONCLUSION: 1. Intact dialysis catheter. There is a kink in the catheter and it is to be replaced. Paracentesis Ultrasound 09/08/18 00:00 CONCLUSION: 1. Uncomplicated paracentesis. Abdomen Ultrasound 09/15/18 00:00 CONCLUSION: Small amount of free fluid in the abdomen, insufficient for paracentesis. Chest X-Ray 09/28/18 00:00 CONCLUSION: 1. Right basilar patchiness consistent with atelectasis and/or infiltrate. 2. Cardiomegaly. Tube Removal 10/05/18 00:00 CONCLUSION: 1. Uncomplicated Permcath removal. Discharge Plan Discharge Disposition Patient Disposition: Discharge Home Discharge Condition Condition: Fair Discharge Order Discharge Orders: Discharge Order (Routine); Ordered 10/06/18 Ordered By: Jaimee Meza Discharge Details Anticipated Discharge Date: 10/06/18 Physicians Team ED Provider: Mariam Breaux ED Midlevel Provider: Neda Sharma Primary Care Provider: UNKNOWN, Attending Provider: Jaimee Meza Other Providers: Bhargav Monge ; Chace Benjamin ; Paty Trujillo ; Domenico Damico Rxs /Orders / Referrals /Forms Prescriptions: New quetiapine 25 mg Tablet 50 mg PO HS Qty: 30 RF: 0 alprazolam [Xanax] 0.25 mg Tablet 0.125 mg PO Q8H PRN (Reason: Anxiety) Qty: 20 RF: 0 fluoxetine 10 mg Capsule 10 mg PO DAILY Qty: 20 RF: 0 oxycodone 5 mg Tablet 5 mg PO Q4H PRN (Reason: Acute Pain) Qty: 18 RF: 0 metoprolol tartrate 25 mg Tablet 25 mg PO BID Qty: 60 RF: 0 Referrals: Bhargav Monge MD [Physician] - See Instructions Primary Care Karen Vtial [Family Provider] - See Instructions ( Please call the physician's office to book the appointment to be seen within [1 week].) UNKNOWN, [Primary Care Provider] - See Instructions Discharge Instructions Patient Printed Instructions: Cefazolin (By injection), Endocarditis (DC), Dialysis Diet (DC), Polysubstance Abuse (ED), Fluid Restriction (DC), Perma- cath Placement (DC), Hemodialysis for Acute Kidney Failure (DC) Status ED Status: Left Department
--- NOTE | 2018-10-06 10:46 | P.PNNP ---
Subjective Interval history: Plans for discharge home today. Creatinine has remained stable at 2.84 and potassium level at 4.6 Physical Exam Vital signs: Vital Signs 10/05/18 11:03 10/05/18 12:00 10/05/18 15:26 Temperature 99.7 F H Pulse Rate 82 Respiratory Rate 18 18 18 Blood Pressure 122/84 Pulse Oximetry 94 L 10/05/18 15:30 10/05/18 15:45 10/05/18 16:00 Temperature 98.2 F 98.3 F Pulse Rate 92 H 90 88 Respiratory Rate 18 18 18 Blood Pressure 135/88 130/89 118/81 Pulse Oximetry 94 L 96 100 10/05/18 16:15 10/05/18 16:45 10/05/18 20:00 Temperature 99.6 F Pulse Rate 88 98 H 93 H Respiratory Rate 18 21 Blood Pressure 118/81 136/96 H 126/79 Pulse Oximetry 100 95 10/06/18 00:00 10/06/18 08:00 10/06/18 09:17 Temperature 99.0 F 97.2 F L Pulse Rate 82 96 H Respiratory Rate 20 16 Blood Pressure 108/68 118/78 Pulse Oximetry 93 L 95 96 Intake & Output 10/05/18 10/06/18 10/06/18 18:59 06:59 18:59 Intake Total 1240 / 1240 510 / 510 Balance 1240 / 1240 510 / 510 Weight 57.1 kg Intake: Oral 1240 / 1240 510 / 510 Other: # Voids 3 3 Date of Last Bowel Movement 10/04/18 10/04/18 # Bowel Movements 1 Narrative: GENERAL: Alert and oriented, in no acute distress. CARDIOVASCULAR: Regular rate and rhythm. With a 2 out of 6 heart murmur. RESPIRATORY: Breath sounds equal bilaterally. No accessory muscle use. GASTROINTESTINAL: Abdomen soft, non-tender. MUSCULOSKELETAL: No cyanosis, or edema. Assessment and Plan - Assessment (1) Acute kidney injury Code(s): N17.9 - Acute kidney failure, unspecified Status: Acute Plan: Acute kidney injury requiring hemodialysis. 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 Last HD on 09/08 From Nephrology stand point patient can be discharged. Will need to follow up outpatient with Nephrology. Potassium levels will need to be monitored carefully. Low potassium diet. Discussed with patient to avoid any NSAID use and fluids encouraged. (2) Endocarditis Code(s): I38 - Endocarditis, valve unspecified Status: Acute Qualifiers: Endocarditis type: infective Infective endocarditis organism: bacterial Chronicity: acute Qualified Code(s): I33.0 - Acute and subacute infective endocarditis Plan: Antibiotics completed. - Plan Patient with sepsis, bacteremia and develop TED. Non oliguric, Creatinine slightly better yesterday 3.1. Continue to hold HD for now. If Creatinine continue to improve, will D/C Vascath.
[2018-10-06 12:35] VITALS: BP 125/90; PULSE 102; TEMP 98.5; O2SAT 95
== END 2018-10-06 12:31 | disposition home or self-care (01) ==
LOC: NEPE 19:47 → NEDA 20:34 → HIMC 22:25 → N07 07-15 15:07
PROVIDERS: ADMIT Family Medicine; ATTEND Family Medicine
DX: Z80.9 Family history of malignant neoplasm, unspecified; Z86.711 Personal history of pulmonary embolism; B19.20 Unspecified viral hepatitis C without hepatic coma; F32.9 Major depressive disorder, single episode, unspecified; F19.20 Other psychoactive substance dependence, uncomplicated; Z88.0 Allergy status to penicillin; E87.1 Hypo-osmolality and hyponatremia; I50.9 Heart failure, unspecified; I07.1 Rheumatic tricuspid insufficiency; J45.909 Unspecified asthma, uncomplicated; Z91.19 Patient's noncompliance with other medical treatment and regimen; S36.119A Unspecified injury of liver, initial encounter; R45.851 Suicidal ideations; R00.0 Tachycardia, unspecified; F60.9 Personality disorder, unspecified; I26.90 Septic pulmonary embolism without acute cor pulmonale; F43.25 Adjustment disorder with mixed disturbance of emotions and conduct; R65.21 Severe sepsis with septic shock; N18.6 End stage renal disease; A41.9 Sepsis, unspecified organism; R18.8 Other ascites; Z51.5 Encounter for palliative care; B37.49 Other urogenital candidiasis; R57.0 Cardiogenic shock; R74.8 Abnormal levels of other serum enzymes; I33.0 Acute and subacute infective endocarditis; Z99.2 Dependence on renal dialysis; L89.153 Pressure ulcer of sacral region, stage 3; E43 Unspecified severe protein-calorie malnutrition; F41.9 Anxiety disorder, unspecified; Z82.49 Family history of ischemic heart disease and other diseases of the circulatory system; E87.5 Hyperkalemia; D69.6 Thrombocytopenia, unspecified; E87.2 Acidosis; Z91.15 Patient's noncompliance with renal dialysis; N17.9 Acute kidney failure, unspecified